=== PATIENT | female | born 1970 | race Caucasian/White ===

== ENCOUNTER 2022-11-26 07:27 | Outpatient (OUT) | payer OTHER, SELFPAY ==
[2022-11-26 08:12] LABS: Estimated Average Glucose 114 mg/dL; Glycohemoglobin A1C 5.6 % (4.5-6.2)
[2022-11-26 08:21] LABS: Chol HDL Ratio 3.1; Cholesterol 160 mg/dL (<=200); HDL Cholesterol 51 mg/dL (40-60); Thyroid Stimulating Hormone 1.707 uIU/mL (0.358-3.740); Triglycerides 209 mg/dL (<=150); VLDL CHOLESTEROL 41.8 mg/dL
[2022-11-26 08:35] LABS: Free T4 1.04 ng/dL (0.76-1.46)
[2022-11-26 09:39] LABS: Basophils Percent Auto 0.1 % (0.2-2.0); Eosinophils Absolute Auto 0.1 10^3/uL (0.0-0.7); Eosinophils Percent Auto 1.3 % (0.9-7.0); Hematocrit 40.8 % (36.0-48.0); Hemoglobin 13.7 g/dL (12.0-16.0); Immature Granulocytes Abs Auto 0.02 10^3/uL (0.00-0.03); Immature Granulocytes Pct Auto 0.3 % (0.0-0.5); Lymphocytes Absolute Auto 2.1 10^3/uL (1.2-3.8); Lymphocytes Percent Auto 29.7 % (20.5-60.0); Mean Corpuscular HGB Conc 33.6 g/dL (29.9-35.2); Mean Corpuscular Hemoglobin 30.3 pg (26.7-34.0); Mean Corpuscular Volume 90.3 fL (81.0-99.0); Monocytes Absolute Auto 0.5 10^3/uL (0.3-0.8); Monocytes Percent Auto 6.9 % (1.7-12.0); Neutrophils Absolute Auto 4.4 10^3/uL (1.4-6.5); Neutrophils Percent Auto 61.7 % (43.0-75.0); Platelet Count 253 10^3/uL (150-450); Red Blood Count 4.52 10^6/uL (4.20-5.40); Red Cell Distribution Width 13.1 % (11.0-15.0); White Blood Count 7.1 10^3/uL (4.0-11.0)
== END 2022-11-26 07:28 ==
PROVIDERS: PCP Family Medicine; Visit Provider Family Medicine
DX: Z00.00 Encounter for general adult medical examination without abnormal findings (principal); R53.83 Other fatigue
CPT/HCPCS: 36415; 80061; 83036; 84439; 84443; 85025

== ENCOUNTER 2023-01-20 08:00 | Outpatient (OUT) | payer OTHER, SELFPAY ==
--- NOTE | 2023-01-20 08:07 | MM_ITS ---
Patient: CARLY STEPHENS Exam Date: 01/20/2023 : 1970 Gender:F Ordering : DR Alexis Sal . Admission #: [id number] Family : Order #: [id number] CLICK HERE TO VIEW EXAM RADIOLOGY REPORT PROCEDURE: MM TOMOSYNTHESIS SCREENING BI COMPARISON: MG MAMM SCREEN 3D EUGENIE CAD, 01/18/2022. MG MAMM SCREEN 3D EUGENIE CAD, 01/17/2021. MG MAMM SCREEN EUGENIE W CAD, 01/17/2020. MG MAMM SCREEN EUGENIE W CAD, 01/15/2019. INDICATIONS: Screening mammogram Z12.31 Calculator Name NCI Breast Cancer Risk Assessment Tool 5 Year Breast Cancer Risk 0.80% Lifetime Breast Cancer Risk 6.90% Personal Breast Cancer No Personal Ovarian Cancer No Treatments None Family Cancers Aunt-maternal with breast cancer at age ~60. LOCATION: [facility] BREAST COMPOSITION: Heterogeneously dense,which may obscure small masses. FINDINGS: DIAGNOSTIC CATEGORY 2--BENIGN FINDING: RIGHT BREAST: No significant suspicious finding. Scattered benign-appearing nodules are present. Scattered benign-appearing calcifications are present. No significant change has occurred. LEFT BREAST: No significant suspicious finding. Scattered benign-appearing nodules are present. Scattered benign-appearing calcifications are present. No significant change has occurred. RECOMMENDATIONS: ROUTINE MAMMOGRAM AND CLINICAL EVALUATION IN 12 MONTHS. PLEASE NOTE: A NORMAL MAMMOGRAM DOES NOT EXCLUDE THE POSSIBILITY OF BREAST CANCER. A CLINICALLY SUSPICIOUS PALPABLE LUMP SHOULD BE BIOPSIED. Dictated by: Aleks Moy M.D. on 01/20/2023 at 14:21 Approved by: Aleks Moy M.D. on 01/20/2023 at 14:32
== END 2023-01-20 08:01 | disposition home or self-care (01) ==
LOC: MAMMO 08:00
PROVIDERS: PCP Family Medicine; Visit Provider Family Medicine
DX: Z12.31 Encounter for screening mammogram for malignant neoplasm of breast (principal); Z80.3 Family history of malignant neoplasm of breast
CPT/HCPCS: 77063; 77067

== ENCOUNTER 2023-10-23 10:08 | Outpatient (OUT) | payer OTHER, SELFPAY ==
[2023-10-23 10:41] LABS: Basophils Percent Auto 0.2 % (0.2-2.0); Eosinophils Absolute Auto 0.1 10^3/uL (0.0-0.7); Hematocrit 40.8 % (36.0-48.0); Hemoglobin 13.4 g/dL (12.0-16.0); Immature Granulocytes Abs Auto 0.03 10^3/uL (0.00-0.03); Immature Granulocytes Pct Auto 0.3 % (0.0-0.5); Lymphocytes Absolute Auto 2.4 10^3/uL (1.2-3.8); Lymphocytes Percent Auto 24.3 % (20.5-60.0); Mean Corpuscular HGB Conc 32.8 g/dL (29.9-35.2); Mean Corpuscular Hemoglobin 29.2 pg (26.7-34.0); Mean Corpuscular Volume 88.9 fL (81.0-99.0); Mean Platelet Volume 10.8 fL (9.5-13.5); Monocytes Absolute Auto 0.5 10^3/uL (0.3-0.8); Neutrophils Absolute Auto 6.9 10^3/uL (1.4-6.5); Neutrophils Percent Auto 69.2 % (43.0-75.0); Platelet Count 222 10^3/uL (150-450); Red Blood Count 4.59 10^6/uL (4.20-5.40); Red Cell Distribution Width 12.6 % (11.0-15.0); White Blood Count 9.9 10^3/uL (4.0-11.0)
[2023-10-23 11:12] LABS: Bilirubin Urine NEGATIVE (NEGATIVE); Blood Urine NEGATIVE (NEGATIVE); Clarity Urine CLEAR (CLEAR); Color Urine LT. YELLOW (YELLOW); Glucose Urine UA NEGATIVE (NEGATIVE); Ketones Urine NEGATIVE (NEGATIVE); Leukocyte Esterase Urine TRACE (NEGATIVE); Nitrite Urine NEGATIVE (NEGATIVE); Protein Urine NEGATIVE (NEG/TRACE); Urobilinogen Urine 0.2 EU/dL (0.2-1.0)
[2023-10-23 11:13] LABS: Bacteria Urine NONE SEEN #/HPF (NONE SEEN); Mucus Urine NONE SEEN (NONE SEEN); RBC Urine NONE SEEN #/HPF (0-2); WBC Urine 0-2 #/HPF (NONE SEEN)
[2023-10-23 11:14] LABS: Cast Seen? NONE SEEN #/LPF (NONE SEEN); Crystals Seen? None Seen #/HPF (None Seen); Squamous Epithelial Cell Urine NONE SEEN #/LPF (NONE/RARE)
[2023-10-23 11:16] LABS: Amphetamine Screen Urine NEGATIVE (NEGATIVE); Barbiturates Screen Urine NEGATIVE (NEGATIVE); Benzodiazepines Screen Urine NEGATIVE (NEGATIVE); Buprenorphine Screen Urine NEGATIVE (NEGATIVE); Cannabinoid Screen Urine NEGATIVE (NEGATIVE); Cocaine Screen Urine NEGATIVE (NEGATIVE); Methadone Screen Urine NEGATIVE (NEGATIVE); Methamphetamines Screen Urine NEGATIVE (NEGATIVE); Opiate Screen Urine NEGATIVE (NEGATIVE); Oxycodone Screen Urine NEGATIVE (NEGATIVE); Phencyclidine Screen Urine NEGATIVE (NEGATIVE); Tricyclic Antidepressant Urine NEGATIVE (NEGATIVE)
[2023-10-23 11:24] LABS: Estimated Average Glucose 111 mg/dL; Glycohemoglobin A1C 5.5 % (4.5-6.2)
[2023-10-23 11:37] LABS: Alanine Aminotransferase 31 U/L (14-59); Albumin Globulin Ratio 0.9; Albumin Level 3.5 g/dL (3.4-5.0); Alkaline Phosphatase 67 U/L (46-116); Anion Gap 10.6; Aspartate Amino Transferase 20 U/L (15-37); BUN Creatinine Ratio 21.6; Bilirubin Total 0.5 mg/dL (0.2-1.0); Calcium 9.1 mg/dL (8.5-10.1); Carbon Dioxide 30.1 mmol/L (21.0-32.0); Chloride 103 mmol/L (98-107); Estimated GFR (African America >60 (>=60); Estimated GFR (Non-African Ame >60 (>=60); Free T3 2.82 pg/mL (2.18-3.98); Globulin 3.7 g/dL; Glucose 92 mg/dL (74-106); Potassium 3.7 mmol/L (3.5-5.1); Sodium 140 mmol/L (136-145); Thyroid Stimulating Hormone 1.325 uIU/mL (0.358-3.740); Total Protein 7.2 g/dL (6.4-8.2)
[2023-10-24 06:10] LABS: Rubella Antibodies, IgG 5.25 index (Immune >0.99); Varicella-Zoster V Ab, IgG 3265 index (Immune >165)
== END 2023-10-23 10:09 | disposition home or self-care (01) ==
LOC: LAB 10:09
PROVIDERS: PCP Family Medicine; Visit Provider Family Medicine
DX: Z00.00 Encounter for general adult medical examination without abnormal findings (principal); M17.11 Unilateral primary osteoarthritis, right knee; N39.0 Urinary tract infection, site not specified
CPT/HCPCS: 36415; 80053; 80307; 81001; 83036; 84436; 84443; 84481; 85025; 86762; 86787; 87086

== ENCOUNTER 2023-12-12 12:41 | Outpatient (RCR) | payer OTHER, SELFPAY | END 2024-01-10 15:41 | disposition home or self-care (01) | LOC: PT 12:41 | PROVIDERS: PCP Family Medicine; Visit Provider Physician Assistant | DX: S83.241D Other tear of medial meniscus, current injury, right knee, subsequent encounter (principal); Z98.890 Other specified postprocedural states | CPT/HCPCS: 97110; 97161 ==

== ENCOUNTER 2024-01-28 10:16 | Outpatient (OUT) | payer OTHER, SELFPAY ==
--- NOTE | 2024-01-28 | MM_ITS ---
Patient Name: CARLY STEPHENS MR#: [id number] : 1970 Exam Date: 01/28/2024 Ordering Doctor: DR CRISTIAN MUÑOZ . RADIOLOGY REPORT PROCEDURE: MM TOMOSYNTHESIS SCREENING BI COMPARISON: MM TOMOSYNTHESIS SCREENING BI, 01/20/2023. MG MAMM SCREEN 3D EUGENIE CAD, 01/18/2022. MG MAMM SCREEN 3D EUGENIE CAD, 01/17/2021. MG MAMM SCREEN EUGENIE W CAD, 01/17/2020. INDICATIONS: screening for malignant neoplasm Calculator Name [facility] Breast Cancer Risk Assessment Tool 5 Year Breast Cancer Risk 0.90% Lifetime Breast Cancer Risk 6.80% Personal Breast Cancer No Personal Ovarian Cancer No Treatments None Family Cancers Aunt-maternal with breast cancer at age ~60. LOCATION: [facility] [place] BREAST COMPOSITION: The breasts are heterogeneously dense,which may obscure small masses. FINDINGS: DIAGNOSTIC CATEGORY 2--BENIGN FINDING: RIGHT BREAST: No significant suspicious finding. Scattered benign-appearing nodules are present. Scattered benign-appearing calcifications are present. No significant change has occurred. LEFT BREAST: No significant suspicious finding. Scattered benign-appearing nodules are present. Scattered benign-appearing calcifications are present. No significant change has occurred. RECOMMENDATIONS: ROUTINE MAMMOGRAM AND CLINICAL EVALUATION IN 12 MONTHS. PLEASE NOTE: A NORMAL MAMMOGRAM DOES NOT EXCLUDE THE POSSIBILITY OF BREAST CANCER. A CLINICALLY SUSPICIOUS PALPABLE LUMP SHOULD BE BIOPSIED. Dictated by: Aleks Moy M.D. on 01/29/2024 at 15:52 Approved by: Aleks Moy M.D. on 01/29/2024 at 15:55
== END 2024-01-28 10:17 | disposition home or self-care (01) ==
LOC: MAMMO 10:16
PROVIDERS: PCP Family Medicine; Visit Provider Family Medicine
DX: Z12.31 Encounter for screening mammogram for malignant neoplasm of breast (principal); Z80.3 Family history of malignant neoplasm of breast
CPT/HCPCS: 77063; 77067

== ENCOUNTER 2024-06-23 19:59 | Outpatient (OUT) | payer OTHER, SELFPAY ==
--- OUTSIDE RECORDS SUMMARY | 2024-06-23 20:04 | XMS_ITS | CCD ---
Author Organization [facility] Care Team Providers Care Door To Door Lead Generation Name Role Phone HERSONSARAH Josue Moe Referring Unavailable CRISTIAN MUÑOZ Primary Care Unavailable Cristian Muñoz Primary Care Provider Mila Akers Unavailable Bernarda Mcneal Unavailable WANDA ., DR FOSTER Admitting Unavailable HOY ., DR FOSTER Attending Unavailable HOY ., DR FOSTER Primary Care Unavailable HOY ., DR FOSTER Consulting Unavailable ZIEBER, DR BETH Walters Consulting Unavailable HOY ., DR FOSTER Admitting Unavailable HOY ., DR FOSTER Attending Unavailable HOY ., DR FOSTER Primary Care Unavailable HOY ., DR FOSTER Consulting Unavailable FARRAH GAINES Consulting Unavailable HOY ., DR FOSTER Admitting Unavailable HOY ., DR FOSTER Attending Unavailable HOY ., DR FOSTER Primary Care Unavailable HOY ., DR FOSTER Consulting Unavailable MISC, DR GRIGGS Admitting Unavailable MISC, DR GRIGGS Attending Unavailable HOY ., DR FOSTER Primary Care Unavailable CAMILA, DR JADA Matamoros Consulting Unavailable MISC, DR GRIGGS Consulting Unavailable HOY ., DR FOSTER Admitting Unavailable HOY ., DR FOSTER Attending Unavailable HOY ., DR FOSTER Primary Care Unavailable HOY ., DR FOSTER Consulting Unavailable WEST, DR JADA Matamoros Consulting Unavailable JOSE, DR MARISELA Brown Admitting Unavailable JOSE, DR MARISELA Brown Attending Unavailable HOY ., DR FOSTER Primary Care Unavailable HOY ., DR FOSTER Admitting Unavailable HOY ., DR FOSTER Attending Unavailable HOY ., DR FOSTER Primary Care Unavailable HOY ., DR FOSTER Consulting Unavailable ZIEBER, DR BETH Walters Consulting Unavailable HOY ., DR FOSTER Admitting Unavailable HOY ., DR FOSTER Attending Unavailable HOY ., DR FOSTER Primary Care Unavailable HOY ., DR FOSTER Consulting Unavailable Baeza, Mitchel Unavailable Megan Coats Unavailable MD Cristian Muñoz Primary Care Provider MD Sandra Jules Attending Provider DO Sam Baezaten Saima Attending Provider Cristian Muñoz MD Primary Care Provider [phone] Cristian Muñoz MD Primary Care Provider MD Cristian Muñoz M Primary Care Provider DO Mitchel Baeza Attending Provider ABILIO Florian Attending Provider [phone] MARISELA GARCIA Attending Unavailable MARISELA GARCIA Attending Unavailable MARISELA GARCIA Attending Unavailable KETAN FRANCIS Referring Unavailable NO FAMILY, PHYSICIAN Primary Care Provider Unava ilable DO Mookie Ospina Attending Provider [phone] Hoy, Cristian M Primary Care Unavailable Mookie Ospina Admitting Unavailable Mookie Ospina Attending Unavailable Hoy, Cristian M Primary Care Unavailable Baeza, Mitchel M Admitting Unavailable Baeza, Mitchel M Attending Unavailable Hoy, Cristian M Primary Care Unavailable Mookie Ospina Admitting Unavailable Mookie Ospina Attending Unavailable NO FAMILY, PHYSICIAN Primary Care Unavailable Mookie Ospina Admitting Unavailable Mookie Ospina Attending Unavailable Darlin Florian Admitting Unavailable Darlin Florian Attending Unavailable Baeza, Mitchel M Admitting Unavailable Baeza, Mitchel M Attending Unavailable Hoy, Cristian M Primary Care Unavailable Sandra Jules Admitting Unavailable Sandra Jules Attending Unavailable Wanda, Cristian M Primary Care Unavailable MD Cristian Muñoz Primary Care Provider [phone] DARRON BOND Attending Unavailable HOY, CRISTIAN M Referring Unavailable HOY, CRISTIAN M Primary Care Unavailable NO FAMILY, PHYSICIAN Primary Care Provider Unava ilable MD Cristian Muñoz Primary Care Provider DO Mookie Ospina Attending Provider [phone] HOY, CRISTIAN M Referring Unavailable HOY, CRISTIAN M Primary Care Unavailable CONCEPCION RUFFIN Attending Unavailable CRISTIAN MUÑOZ Referring Unavailable CRISTIAN MUÑOZ Primary Care Unavailable CONCEPCION RUFFIN Referring Unavailable CRISTIAN MUÑOZ Primary Care Unavailable CONCEPCION RUFFIN Referring Unavailable CIRSTIAN MUÑOZ Primary Care Unavailable Cristian Muñoz MD Primary Care Provider [phone] Cristian Muñoz Primary Care Physician Clint Boogie Admitting Unavailable Clint Boogie Attending Unavailable Clint Boogie Referring Unavailable FIONA WINN Attending Unavailable EDNA XIONG Attending Unavailable CHUYITA, CLINT A Referring Unavailable CLINT BOOGIE A Attending Unavailable CLINT BOOGIE A Referring Unavailable CLINT BOOGIE A Attending Unavailable CLINT BOOGIE A Referring Unavailable Clint Boogie A Admitting Unavailable Clint Boogie A Attending Unavailable Clint Boogie A Referring Unavailable Allergies Allergy Classification Reported Allergen(s) Allergy Type Date of Onset Reaction(s) Facility (1 source) No Known Medication Allergies; Translations: [No Known Medication Allergies] Propensity to adverse reactions (disorder) [facility] Repository Medications Current Medications Medication Drug Class(es) Dates Sig (Normalized) Sig (Original) 0.5 ML semaglutide 0.5 MG/ML Auto-Injector [Wegovy] (3 sources) Start: 01-02-2023 inject 0.25 mg by subcutaneous injection every week Wegovy 0.25 MG/0.5ML 0.25 mg Subcutaneous Once weekly for 30 days Dec, Active 0.5 ML tirzepatide 20 MG/ML Auto-Injector [Zepbound] (1 source) Start: 06-17-2024 Zepbound 10 mg/0.5 mL subcutaneous solution SubCutaneous, qWeek, , Refills(s) 0 Start Date: 06/17/24 Status: Ordered azithromycin 250 mg oral tablet (1 source) Macrolide Antimicrobial Start: 07-19-2019 azithromycin (ZITHROMAX) 250 MG tablet Indications: Acute frontal sinusitis, recurrence not specified Take 2 tabs (500 mg) on Day 1, and take 1 tab (250 mg) on days 2 through 5. 1 packet 0 07/19/2019 Active 24 hr buPROPion hydrochloride 150 mg extended release oral tablet (20 sources) Aminoketone Start: 07-31-2023 End: 11-24-2023 take 1 mg by mouth once daily Bupropion Hcl Discontinued MG PO Daily July 31, 2023 9:23am November 24, 2023 10:42am Start: 07-30-2023 End: 07-31-2023 Bupropion Hcl Discontinued M G PO July 30, 2023 1:00am July 31, 2023 9:25am Start: 03-01-2020 take 150 mg by mouth once daily Bupropion Hcl Active 150 MG PO Daily November 24, 2023 10:38am Start: 02-18-2020 buPROPion XL ( Wellbutrin XL) 150 MG 24 hr tablet 09/04/2022 Active Wellbutrin 150mg qd Active Wellbutrin Activ e calcium polycarbophil 625 mg oral tablet (1 source) Start: 06-17-2024 take 1 tablet by mouth once daily Fiber Tabs 625 mg, Oral, Daily, Refills(s) 0, Prophylaxis Start Date: 06/17/24 Status: Ordered Carboxymethylcellulose (2 sources) Carboxymethylcel lulose Sodium (EQ RESTORE PLUS LUBRICANT EYE OP) Administer into affected eye(s) Active cefdinir (1 source) Cephalosporin Antibacterial Start: 06-17-2024 cefdinir Oral, Refills(s) 0, Infection or prophylaxis for antibiotics Start Date: 06/17/24 Status: Ordered cetirizine hydrochloride 10 mg oral tablet (20 sources) Histamine-1 Receptor Antagonist Start: 07-12-2019 End: 07-31-2023 take 1 tablet by mouth once daily cetirizine 10 mg Tab 10 mg = 1 tab(s), Oral, Daily, Refills(s) 0 Start Date: 03/01/20 Status: Ordered Cetirizine HCl A ctive cholecalciferol 0.05 mg oral capsule (20 sources) Vitamin D Start: 07-30-2023 take 50 ug by mouth once daily in the morning Cholecalciferol (Vitamin D3) Active 50 MCG PO Every morning July 30, 2023 1:00am cholecalciferol (Vitamin D-[address]) 25 MCG (1000 UT) tablet Take 2,000 Units by mouth in the morning. Active take 2 tablets by mouth in the m orning cholecalciferol (VITAMIN D3) 1,000 units tablet Take 2 tablets (2,000 Units total) by mouth in the morning. Active take 1 capsule by [facility] every twenty-four hours Vitamin D3 50 MCG (1999) 1 capsule Or ally Once a day Active Coenzyme Q10 (CO Q 10 PO) (2 sources) Coenzyme Q10 (CO Q 10 PO) Take by mouth Active CoQ10 100 MG (10 sources) CoQ10 100 MG as directed Orally Active diclofenac sodium 75 mg delayed release oral tablet (6 sources) Nonsteroidal Anti-inflammatory Drug End: 4 take 1 tablet by mouth once daily as needed diclofenac (VOLTAREN) 75 mg EC tablet Take 1 tablet (75 mg total) by mouth daily as needed. Active Estradiol (2 sources) Estrogen Estradiol Active eye promise restore (10 sources) Start: take 1 tablet by mouth once daily in the morning eye promise restore Active 1 TAB PO Every morning December 01, 2023 12:00am Start: 12-01-2023 take 1 tablet by mouth once da jerardo eye promise restore Active 1 TAB PO Daily December 01, 2023 12:00am fenofibrate 67 mg oral capsule (8 sources) Peroxisome Proliferator Receptor alpha Agonist Start: 02-20-2024 Fenofibrate Micronized Active 67 MG PO March 08, 2024 12:00am FeroSul 325 mg oral tablet (1 source) Start: 04-13-2021 take 1 tablet by mouth once daily FeroSul 325 mg oral tablet 325 mg = 1 tab(s), Oral, Daily, Refills(s) 0 Start Date: 04/13/21 Status: Ordered ferrous sulfate 325 mg oral tablet (20 sources) Start: 11-03-2020 take 1 tablet by mouth in the morning FeroSuL 325 mg (65 mg iron) tablet Take 1 tablet (325 mg total) by mouth in the morning. 11/03/2020 Active take 1 tablet by mouth in the mo [facility] Ferrous Sulfate (IRON PO) Take 1 tablet by mouth in the morning. Active Fiber (2 sources) FIBER PO Take by mouth Active fluticasone propionate 0.05 mg/actuat metered dose nasal spray (1 source) Corticosteroid take 1 spray(s) nasal route in the morning fluticasone propionate (FLONASE) 50 mcg/actuation nasal spray Administer 1 spray into each nostril in the morning. Active gabapentin 300 mg oral capsule (7 sources) Anti-epileptic Agent Start: 01-22-20 take 1 capsule by mouth once daily gabapentin (NEURONTIN) 300 mg capsule Indications: Menopause Take 1 capsule (300 mg total) by mouth nightly. 30 capsule 11 01/21/2023 Active gemfibrozil 600 mg oral tablet (3 sources) Peroxisome Proliferator Receptor alpha Agonist Start: 06-28-19 gemfibrozil (LOPID) 600 MG tablet Gemfibrozil Acti ve Iron (2 sources) Iron Active Magnesium glycinate (13 sources) Start: 11-24-2023 take 2 capsules by mouth once daily in the evening magnesium glycinate Active 2 CAP PO Every evening November 24, 2023 12:00am Start: 11-24-2023 take 2 capsules by m outh once daily magnesium glycinate Active 2 CAP PO Daily November 24, 2023 12:00am Multiple Vitamin (multivitamin) tablet (2 sources) take 1 tablet by vida th once daily Multiple Vitamin (multivitamin) tablet Take 1 tablet by mouth Daily Active Multiple Vitamins-Iron (MULTI-VITAMIN/IRON PO) (1 source) Multiple Vitamin s-Iron (MULTI-VITAMIN/IRON PO) Take by mouth 0 Active hfkxxokk-uqhi-GZ-calcium &mi ns (THERAGRAN-M) 9 mg iron-400 mcg tablet (3 sources) qorizzst-askr-YM -calcium &mins (THERAGRAN-M) 9 mg iron-400 mcg tablet Take 1 tablet by mouth in the morning. Active nzpehcqe-vosq-JT -calcium &mins (THERAGRAN-M) 9 mg iron-400 mcg tablet Take 1 tablet by mouth in the morning. 0 Active Multivitamin preparation (20 sources) Start: 07-30-2023 take 1 tablet by mouth once daily in the morning Multivitamin Active 1 TAB PO Every morning July 30, 2023 1:00am Start: 07-30-2023 take 1 tablet by vida th once daily Multivitamin Active 1 TAB PO Daily July 30, 2023 1:00am take 1 tablet by vida th once daily Multivitamin - 1 tablet Orally Once a day Active Multivitamin Act gonzález pantoprazole 40 mg delayed release oral tablet (20 sources) Proton Pump Inhibitor Start: 05-31-2020 take 1 tablet by mouth once daily Protonix 40 mg Tab-DR 40 mg = 1 tab(s), Oral, Daily, Refills(s) 0, Indigestion Start Date: 06/23/20 Status: Ordered Protonix Active PARoxetine hydrochloride 20 mg oral tablet (1 source) Serotonin Reuptake Inhibitor Start: 07-19-2019 take 1 tablet by mouth once daily in the morning PARoxetine (PAXIL) 20 MG tablet Indications: Menopausal symptom Take 1 tablet by mouth every morning 90 tablet 4 07/19/2019 Active phenazopyridine hydrochloride 100 mg oral tablet (3 sources) Start: 06-17-2024 Pyridium 100 mg Tab Refills(s) 0, Urinary discomfort Start Date: 06/17/24 Status: Ordered Start: 03-22-2024 End: 04-15-2024 Pyridium 200 MG tablet every 8 (eight) hours 03/22/2024 04/15/2024 Discontinued (Therapy completed) Progesterone (2 sources) Progesterone Progesterone Act gonzález QUEtiapine 50 mg oral tablet (5 sources) Atypical Antipsychotic Start: 12-31-2022 QUEtiapine (SEROquel) 50 mg tablet rosuvastatin calcium 20 mg oral tablet (20 sources) HMG-CoA Reductase Inhibitor Start: 09-19-2022 End: 06-18-2023 rosuvastatin (Crestor) 20 MG tablet 09/19/2022 Active Crestor Active Tirzepatide (Weight Loss) (3 sources) Start: 03-12-2024 inject 10 mg by subcutaneous injection every week Tirzepatide (Weight Loss) Active 10 MG SUBCUT every week 2 March 12, 2024 10:47am Start: 02-26-2024 End: 03-12-2024 inject 10 mg by subcutaneous injection every week Tirzepatide (Weight Loss) Discontinued 10 MG SUBCUT every week 2 February 26, 2024 4:35pm March 12, 2024 10:48am Start: 02-26-2024 inject 10 mg by subc utaneous injection every week Tirzepatide (Weight Loss) Active 10 MG SUBCUT every week 2 February 26, 2024 4:35pm tirzepatide, weight loss, (ZEPBOUND) 2.5 mg/0.5 mL pen injector (1 source) tirzepatide, david ght loss, (ZEPBOUND) 2.5 mg/0.5 mL pen injector Inject 2.5 mg under the skin every 7 days. Active Vitamin D (1 source) Start: 06-17-2024 Vitamin D Oral, Daily, Refills(s) 0, Prophylaxis Start Date: 06/17/24 Status: Ordered VITAMIN D PO (2 sources) VITAMIN D PO Mitch e by mouth Active Zepbound 10 MG/0.5ML solution auto-injector (5 sources) Start: 04-02-2024 inject 0.5 mL by subcutaneous injection every week Zepbound 10 MG/0.5ML solution auto-injector INJECT 0.5 ML SUBCUTANEOUSLY EVERY WEEK FOR WEIGHT LOSS 04/02/2024 Active Completed/Discontinued Medications Medication Drug Class(es) Dates Sig (Normalized) Sig (Original) acetaminophen 325 mg oral tablet (14 sources) Start: 4 End: 5 acetaminophen (Tylenol) 325 MG tablet 12/04/2023 06/17/2024 Discontinued (Therapy completed) acetaminophen 325 mg / HYDROcodone bitartrate 5 mg oral tablet (9 sources) Opioid Agonist Start: 4 End: 4 take 1 tablet by mouth every six hours Hydrocodone-Aceta minophen Discontinued 1 TAB PO Q6H 12 December 04, 2023 March 08, 2024 7:37am DO NOT RECONCILE UNTIL DOS 12/05/23 TO BE USED POST OP aspirin 81 mg chewable tablet (9 sources) Platelet Aggregation Inhibitor, Nonsteroidal Anti-inflammatory Drug Start: 4 End: 4 take 81 mg by mouth twice daily Aspirin Discontinued 81 MG PO Twice daily December 04, 2023 12:00am January 19, 2024 10:54am DO NOT RECONCILE UNTIL DOS 12/05/23 TO BE USED POST OP 12 hr buPROPion hydrochloride 90 mg / naltrexone hydrochloride 8 mg extended release oral tablet (5 sources) Opioid Antagonist, Aminoketone Start: 3 Contrave 8-90 MG Week 1 take 1 tablet in the a.m., week 2 take 1 tablet in the a.m. and 1 tablet in the p.m., week 3 take 2 tablets in the a.m. and 1 tablet in the p.m., week 4 and beyond take 2 tablets in the a.m. and p.m. Orally As directed for 30 days Jan, Not-Taking cephalexin 500 mg oral tablet (16 sources) Cephalosporin Antibacterial Start: 4 End: take 1000 mg by mouth every twelve hours Cephalexin Discontinued 1000 MG PO Every 12 hours July 31, 2023 1:00am September 29, 2023 8:20am dexamethasone 6 mg oral tablet (2 sources) Corticosteroid Start: 4 End: 4 dexAMETHasone (Decadron) 6 MG tablet 06/20/2023 04/15/2024 Discontinued (Therapy completed) hydroCHLOROthiazide 12.5 mg / losartan potassium 50 mg oral tablet (20 sources) Thiazide Diuretic, Angiotensin 2 Receptor Susan Start: 4 End: 5 losartan-hydroCHL OROthiazide (Hyzaar) 50-12.5 MG tablet 06/12/2023 06/17/2024 Discontinued (Therapy completed) Start: 08-02-2021 take 1 tablet by vida th once daily losartan-hydroCHLOROthiazide (HYZAAR) 50-12.5 mg per tablet Take 1 tablet by mouth daily. 90 tablet 3 08/02/2021 Active indomethacin 50 mg oral capsule (13 sources) Nonsteroidal Anti-inflammatory Drug Start: 11-24-2023 End: 01-19-2024 take 50 mg by mouth three times daily Indomethacin Discontinued 50 MG PO Three times daily November 24, 2023 12:00am January 19, 2024 10:55am Ketorolac (12 sources) Nonsteroidal Anti-inflammatory Drug, Cyclooxygenase Inhibitor Start: 05-31-2018 Toradol per 15 mg May, 60 mg magnesium oxide 400 mg oral tablet (8 sources) End: 06-17-2024 magnesium oxide (Mag-Ox) 400 MG tablet Take 200 mg by mouth in the morning. 06/17/2024 Discontinued (Therapy completed) take 0.5 tablet by mouth in the morning magnesium oxide (MAGOX) 400 mg tablet Take 0.5 tablets (200 mg total) by mouth in the morning. Active take 1 tablet by mouth in the mo rning magnesium oxide (MAGOX) 400 mg tablet Take 1 tablet (400 mg total) by mouth in the morning. 0 Active meloxicam 15 mg oral tablet (20 sources) Nonsteroidal Anti-inflammatory Drug Start: 06-05-2023 End: 04-15-2024 take 15 mg by mouth once daily Meloxicam Discontinued 15 MG PO daily January 19, 2024 10:55am March 12, 2024 10:30am DO NOT RECONCILE UNTIL DOS 12/05/23 TO BE USED POST OP take 1 tablet by mouth in the mo rning meloxicam (MOBIC) 7.5 mg tablet Take 1 tablet (7.5 mg total) by mouth in the morning. Active 1 ml methylPREDNISolone acetate 40 mg/ml injection (2 sources) Corticosteroid Start: 07-14-2023 End: 07-14-2023 methylPREDNISolone acetate (DEPO-Medrol) injection 40 mg naproxen 500 mg oral tablet (8 sources) Nonsteroidal Anti-inflammatory Drug Start: 03-08-2024 End: 06-17-2024 take 500 mg by mouth twice daily Naproxen Discontinued 500 MG PO Twice daily March 12, 2024 12:00am March 12, 2024 10:32am nitrofurantoin, macrocrystals 25 mg / nitrofurantoin, monohydrate 75 mg oral capsule (15 sources) Nitrofuran Antibacterial Start: 10-18-2023 End: 11-24-2023 take 1 capsule by mouth every twelve hours at mealtime Nitrofurantoin Monohyd/M-Cryst (Macrobid) 100 mg capsule Discontinued 100 MG PO Every 12 hours 14 October 18, 2023 12:00am November 24, 2023 10:40am must administer with a meal/food 24 hr pramipexole dihydrochloride 2.25 mg extended release oral tablet (20 sources) Nonergot Dopamine Agonist Start: 12-01-2023 End: 01-19-2024 take 1 tablet by mouth once daily in the evening Pramipexole (Mirapex Er) 2.25 mg tablet extended release 24 hr Discontinued 2.25 MG PO Every evening December 01, 2023 12:00am January 19, 2024 10:56am Start: 07-31-2023 take 2 mg by mouth o nce daily in the evening Pramipexole Active 2 MG PO Every evening July 31, 2023 9:24am (MIRAPEX) Start: 03-01-2020 End: 07-31-2023 pramipexole (Mirapex) 1 MG t ablet 12/25/2022 Active Start: 05-28-2019 pramipexole (M IRAPEX) 0.25 MG tablet take 2 tablets by mo uth in the morning pramipexole (MIRAPEX) 1 mg tablet Take 2 tablets (2 mg total) by mouth in the morning. Active Mirapex 2mg qd A ctive Mirapex Active predniSONE 10 mg oral tablet (2 sources) Start: 10-31-2023 End: 04-15-2024 predniSONE (Deltasone) 10 MG tablet 10/31/2023 04/15/2024 Discontinued (Therapy completed) Relizen (8 sources) Relizen 2 tabs q d Not-Taking Relizen 2 tabs q d Active Tirzepatide (Weight Loss) (20 sources) Start: 11-20-2023 End: 11-24-2023 Tirzepatide (Weight Loss) (Z epbound) 5 mg/0.5 mL pen injector Discontinued 5 MG SUBCUT every week 2 November 20, 2023 7:27am November 24, 2023 11:04am Start: 11-20-2023 End: 11-20-2023 Tirzepatide (Weight Loss) (Zepbound) 5 mg/0.5 mL pen injector Discontinued 5 MG SUBCUT every week November 20, 2023 12:00am November 20, 2023 7:28am Start: 09-29-2023 End: 10-27-2023 inject 5 mg by subcutaneous injection every week Tirzepatide (Weight Loss) Discontinued 5 MG SUBCUT every week 2 September 29, 2023 8:35am October 27, 2023 2:26pm Start: 09-29-2023 inject 5 mg by subcu taneous injection every week Tirzepatide (Weight Loss) Active 5 MG SUBCUT every week 2 September 29, 2023 8:35am Tirzepatide (Weight Loss) (20 sources) Start: 10-27-2023 End: 11-20-2023 Tirzepatide (Weight Loss) (Z epbound) 2.5 mg/0.5 mL pen injector Discontinued 2.5 MG SUBCUT every week 2 October 27, 2023 2:24pm November 20, 2023 7:24am Start: 10-27-2023 Tirzepatide (W eight Loss) (Zepbound) 2.5 mg/0.5 mL pen injector Active 2.5 MG SUBCUT every week 2 October 27, 2023 2:24pm Start: 09-22-2023 End: 09-29-2023 Tirzepatide (Weight Loss) (Z epbound) 2.5 mg/0.5 mL pen injector Discontinued 2.5 MG SUBCUT every week 2 September 22, 2023 3:32pm September 29, 2023 8:46am Start: 08-21-2023 End: 09-22-2023 Tirzepatide (Weight Loss) (Z epbound) 2.5 mg/0.5 mL pen injector Discontinued 2.5 MG SUBCUT every week 2 August 21, 2023 2:37pm September 22, 2023 3:32pm Start: 07-31-2023 End: 08-21-2023 Tirzepatide (Weight Loss) (Z epbound) 2.5 mg/0.5 mL pen injector Discontinued 2.5 MG SUBCUT every week 2 July 31, 2023 1:00am August 21, 2023 2:37pm Tirzepatide (Weight Loss) (20 sources) Start: 01-19-2024 End: 02-26-2024 inject 7.5 mg by subcutaneous injection every week Tirzepatide (Weight Loss) Discontinued 7.5 MG SUBCUT every week 2 January 19, 2024 11:14am February 26, 2024 4:36pm Start: 01-19-2024 inject 7.5 mg by sub cutaneous injection every week Tirzepatide (Weight Loss) Active 7.5 MG SUBCUT every week 2 January 19, 2024 11:14am Start: 12-01-2023 End: 01-19-2024 inject 7.5 mg by subcutaneous injection every week Tirzepatide (Weight Loss) Discontinued 7.5 MG SUBCUT every week December 01, 2023 12:00am January 19, 2024 11:14am takes on Mondays Start: 12-01-2023 inject 7.5 mg by sub cutaneous injection every week Tirzepatide (Weight Loss) Active 7.5 MG SUBCUT every week December 01, 2023 12:00am takes on Mondays Start: 11-24-2023 End: 12-01-2023 inject 7.5 mg by subcutaneous injection every week Tirzepatide (Weight Loss) Discontinued 7.5 MG SUBCUT every week 2 November 24, 2023 11:04am December 01, 2023 7:51am Start: 11-24-2023 inject 7.5 mg by sub cutaneous injection every week Tirzepatide (Weight Loss) Active 7.5 MG SUBCUT every week 2 November 24, 2023 11:04am ubidecarenone 75 mg oral cap lakhwinder (19 sources) Start: 07-30-2023 End: 11-24-2023 Coenzyme Q10 (Ultra Coq10) 7 5 mg capsule Discontinued 75 MG PO Daily July 30, 2023 1:00am November 24, 2023 10:39am Start: 11-30-2021 take 1 capsule by mo uth once in the morning coenzyme Q10 100 mg capsule Take 1 capsule (100 mg total) by mouth in the morning. 30 capsule 11 11/30/2021 Active ubiquinol 100 mg oral capsul e (15 sources) Start: 11-24-2023 End: 04-15-2024 Ubiquinol 100 MG capsule Emily ry evening 11/24/2023 04/15/2024 Discontinued (Therapy completed) Problems Active Problems Problem Classification Problem Date Documented Date Episodic/Chronic Abdominal pain (1 source) Epigastric pain 06-22-2020 Episodic Administrative/socia l admission (20 sources) Dietary counseling and surveillance; Translations: [Other specified counseling] Episodic Allergic reactions (1 source) Eczema 03-01-2020 Episodic Anxiety disorders (16 sources) Mixed anxiety and depressive disorder; Translations: [Anxiety disorder, unspecified] 07-30-2023 Chronic Biliary tract disease (1 source) Biliary calculus 06-24-2020 Episodic Disorders of lipid metabolism (20 sources) Dyslipidemia; Translations: [Hyperlipidemia, unspecified] Onset: 06-05-2022 Chronic Esophageal disorders (20 sources) Gastroesophageal reflux disease; Translations: [Gastro-esophageal reflux disease without esophagitis] Chronic Essential hypertension (20 sources) Essential hypertension; Translations: [Essential (primary) hypertension] Onset: 08-02-2021 Chronic Gastroduodenal ulcer (except hemorrhage) (1 source) Gastric ulcer 05-25-2021 Chronic Genitourinary symptoms and ill-defined conditions (1 source) Dysuria; Translations: [Dysuria] Onset: 10-18-2023 Episodic Glaucoma (1 source) Open-angle glaucoma 03-01-2020 Chronic Joint disorders and dislocations; trauma-related (20 sources) Tear of meniscus of knee; Translations: [Unspecified tear of unspecified meniscus, current injury, right knee, initial encounter] 11-25-2023 Episodic Menopausal disorders (3 sources) Menopausal flushing; Translations: [Menopausal and female climacteric states] Onset: 12-21-2020 12-21-2020 Chronic Osteoarthritis (20 sources) Unilateral primary osteoarthritis, right knee; Translations: [Unspecified osteoarthritis, unspecified site] Onset: 06-20-2022 Chronic Other aftercare (1 source) Encounter for other specified aftercare; Translations: [Encounter for other specified aftercare] Onset: 09-08-2023 Episodic Other aftercare (8 sources) Surgical follow-up; Translations: [Encounter for removal of sutures] 12-18-2023 Episodic Other aftercare (15 sources) Encounter for removal of sutures; Translations: [Encounter for removal of sutures] 12-18-2023 Episodic Other aftercare (1 source) Encounter for therapeutic drug level monitoring; Translations: [Encounter for therapeutic drug level monitoring] Onset: 04-29-2024 Episodic Other and unspecified benign neoplasm (1 source) Benign neoplasm of skin of abdomen 03-03-2020 Episodic Other hereditary and degenerative nervous system conditions (1 source) Restless legs 03-01-2020 Chronic Other non-traumatic joint disorders (1 source) Pain in right shoulder; Translations: [Pain in joint, shoulder region] 07-08-2023 Episodic Other non-traumatic joint disorders (1 source) Disorder of shoulder; Translations: [Other specified joint disorders, right shoulder] 07-14-2023 Episodic Other non-traumatic joint disorders (15 sources) Pain in right knee; Translations: [Right knee pain] Onset: 11-25-2023 11-25-2023 Episodic Other nutritional; endocrine; and metabolic disorders (10 sources) Morbid obesity; Translations: [Morbid (severe) obesity due to excess calories] Chronic Other nutritional; endocrine; and metabolic disorders (20 sources) Metabolic syndrome X; Translations: [Metabolic syndrome] 07-30-2023 Chronic Other nutritional; endocrine; and metabolic disorders (5 sources) Morbid (severe) obesity due to excess calories; Translations: [Morbid (severe) obesity due to excess calories] Onset: 05-21-2023 Chronic Other nutritional; endocrine; and metabolic disorders (4 sources) Metabolic syndrome Chronic Other nutritional; endocrine; and metabolic disorders (9 sources) Body mass index 40+ - severely obese; Translations: [Body mass index (BMI) 40.0-44.9, adult] Chronic Other nutritional; endocrine; and metabolic disorders (20 sources) Obese class II; Translations: [Body mass index (BMI) 39.0-39.9, adult] 07-30-2023 Chronic Other nutritional; endocrine; and metabolic disorders (19 sources) Obesity; Translations: [Obesity, unspecified] Chronic Other nutritional; endocrine; and metabolic disorders (20 sources) Obesity, unspecified; Translations: [Obesity, unspecified] Chronic Other nutritional; endocrine; and metabolic disorders (1 source) Body mass index (BMI) 39.0-39.9, adult Chronic Other nutritional; endocrine; and metabolic disorders (4 sources) Body mass index 30+ - obesity; Translations: [Obesity, unspecified] Onset: 08-02-2021 08-02-2021 Chronic Other nutritional; endocrine; and metabolic disorders (7 sources) Obese class I; Translations: [Obesity, unspecified] 01-19-2024 Chronic Other screening for suspected conditions (not mental disorders or infectious disease) (5 sources) Encounter for screening mammogram for malignant neoplasm of breast; Translations: [ENC SCR MAMMO MALIG NEOPLASM BREAST] Onset: 01-18-2022 Episodic Other skin disorders (1 source) Mass of neck 03-01-2020 Episodic Other skin disorders (1 source) Skin tag 03-03-2020 Episodic Other upper respiratory infections (4 sources) Chronic sinusitis, unspecified; Translations: [Chronic maxillary sinusitis] Onset: 04-19-2022 Chronic Residual codes; unclassified (3 sources) Sleep apnea; Translations: [Sleep apnea, unspecified] Onset: 02-09-2021 02-09-2021 Chronic Residual codes; unclassified (9 sources) History of arthroscopy of knee joint; Translations: [Other specified postprocedural states] 12-04-2023 Episodic Residual codes; unclassified (20 sources) Other specified postprocedural states; Translations: [Other postprocedural status] 12-18-2023 Episodic Sprains and strains (16 sources) Unspecified sprain of right lesser toe(s), initial encounter; Translations: [Sprain of medial collateral ligament of left knee, initial encounter] Onset: 12-15-2021 Resolved: 12-15-2021 Episodic Unclassified (3 sources) Patient encounter status 04-13-2021 Unclassified (3 sources) CONTACT W/AND (SUSP) EXPOS COVID-19; Translations: [CONTACT W/AND (SUSP) EXPOS COVID-19] Onset: 01-10-2022 Unclassified (1 source) Encounter for other specified aftercare; Translations: [Encounter for other specified aftercare] Onset: 03-09-2023 Unclassified (1 source) Gynecologic Exam Onset: 2024 Urinary tract infections (9 sources) Acute cystitis with hematuria; Translations: [Acute cystitis] 10-18-2023 Episodic Past or Other Problems Problem Classification Problem Date Documented Da te Episodic/Chronic Deficiency and other anemia (1 source) Anemia, unspecified; Translations: [ANEMIA UNSPECIFIED] Onset: 05-06-2022 Episodic Other connective tissue disease (1 source) Pain in right toe(s) Onset: 12-15-2021 Resolved: 12-15-2021 Episodic Other lower respiratory disease (3 sources) Dyspnea; Translations: [Shortness of breath] Onset: 08-02-2021 Resolved: 2024 08-02-2021 Episodic Other non-traumatic joint disorders (1 source) Pain in right wrist Onset: 08-10-2021 Resolved: 08-10-2021 Episodic Other skin disorders (4 sources) Alopecia (capitis) totalis; Translations: [ALOPECIA CAPITIS TOTALIS] Onset: 04-30-2022 Episodic Residual codes; unclassified (1 source) Family history of malignant neoplasm of breast; Translations: [FAMILY HX MALIG NEOPLASM OF BREAST] Onset: 01-21-2022 Episodic Residual codes; unclassified (3 sources) Menopause present; Translations: [Asymptomatic menopausal state] Onset: 07-16-2021 07-16-2021 Episodic Residual codes; unclassified (3 sources) Family history of cardiac disorder; Translations: [Family history of ischemic heart disease and other diseases of the circulatory system] Onset: 08-02-2021 08-02-2021 Episodic Unclassified (1 source) CONTACT W/AND (SUSP) EXPOS COVID-19; Translations: [CONTACT W/AND (SUSP) EXPOS COVID-19] Onset: 01-07-2022 Results Test Name Value Interpretation Reference Range Facility CT Lower Extremity w/o Contr ast [place] 06-21-2024 CT Lower Extremity w/o Contrast Right Exam Date/Time: 06/17/2024 13:52 EST Reason for Exam: RIGHT KNEE OA Report Impression: Right knee osteoarthritis. CT right lower extremity without intravenous contrast medium. History: Right knee osteoarthritis.. Technical factors: CT imaging of the right lower extremity was obtained and formatted as 2 mm contiguous axial images through the right hip, and 1 mm contiguous axial images through the right knee. Sagittal and coronal reconstruction of the right knee was obtained during postprocessing. Comparison: None. Findings: Right hip shows no fracture, dislocation, bone lesion. Right hip joint maintained. Right knee shows narrowing of the medial, and lateral compartments. No fracture, dislocation, bone lesion, effusion. All CT scans at this facility use dose modulation, iterative reconstruction, and/or weight based dosing when appropriate to reduce radiation dose to as low as reasonably achievable. Ordering Provider: Clint Boogie FINAL REPORT Dictated: 06/21/2024 2:19 pm Zeyad Reza MD Signed (Electronic Signature): 06/21/2024 2:19 pm Signed by: Zeyad Reza MD Transcribed by: GLORIA Technologist: INDRA [facility] C Urineon 06-19-2024 Bacteria identified Cx Nom (U) Microbiology PROCEDURE: Urine Culture [R1] SOURCE: U CleanCatch BODY SITE: COLLECTED DATE/TIME: 06/17/2024 13:00 EST RECEIVED DATE/TIME: 06/17/2024 16:59 EST START DATE/TIME: 06/17/2024 16:59 EST FREE TEXT SOURCE: Clint Boogie DO, DO, Jason A FINAL REPORTS Final Report [] Verified Date/Time: 06/19/2024 07:51 EST 5,000 cfu/ml Mixed skin contaminants Performing Locations R1: This test was performed at: [facility], [address] [place] [address], [id number] , , [facility] Comment on above: Performed By: #### 2 [id number] #### [facility] [address] [place] [address] XR Chest 2 Viewson XR Chest 2 Views Exam Date/Time: 06/17/2024 13:52 EST Reason for Exam: P.A.T. Report IMPRESSION: NO EVIDENCE OF ACTIVE CARDIOPULMONARY DISEASE. EXAM: XR Chest 2 Views DATE: 06/17/2024 1:45 PM CLINICAL HISTORY: P.A.T.. COMPARISON: None available. TECHNIQUE: Upright PA and lateral radiographs of the chest were obtained. FINDINGS: There is no significant pulmonary infiltrate, cardiomegaly, pleural effusion, vascular congestion, pneumothorax, or displaced fractures identified. Ordering Provider: Jr La FINAL REPORT Dictated: 06/19/2024 4:10 pm Lee Hernandez MD Signed (Electronic Signature): 06/19/2024 4:10 pm Signed by: Lee Hernandez MD Transcribed by: GLORIA Technologist: MIKE, Technical Comments Radiation Dose: Ka,r in mGy = na DAP = na Normal [facility] ABO/Rh RetypeOrdered By: Mallika Brooks on 06-17-2024 ABO/Rh Retype Interp Positive Invalid Interpretation Code [facility] [place] BB Subsection Comment on above: Performed By: #### 1 [id number] #### [facility] [address] [place] [address] BMPOrdered By: SYSTEM SYSTEM on 06-17-2024 Anion gap [Moles/Vol] 12 mmol/L Normal 6-16 Rem isol Chem Comment on above: Performed By: #### 2 [id number] #### [facility] [address] [place] [address] Calcium [Mass/Vol] 9.3 mg/dL Normal 8.9-11.1 Remiso l Chem Comment on above: Performed By: #### 2 [id number] #### [facility] [address] [place] [address] Chloride [Moles/Vol] 108 mmol/L Normal 101-111 Paul benjamin Chem Comment on above: Performed By: #### 2 [id number] #### [facility] [address] [place] [address] CO2 [Moles/Vol] 24 mmol/L Normal 21-31 Remisol C hem Comment on above: Performed By: #### 2 [id number] #### [facility] [address] [place] [address] Creatinine [Mass/Vol] 0.9 mg/dL Normal 0.5-1.3 Rem isol Chem Comment on above: Performed By: #### 2 [id number] #### [facility] [address] [place] [address] Glucose [Mass/Vol] 86 mg/dL Normal 55-199 Remiso l Chem Comment on above: Performed By: #### 2 [id number] #### [facility] [address] [place] [address] Potassium [Moles/Vol] 4.1 mmol/L Normal 3.5-5.3 Rem isol Chem Comment on above: Performed By: #### 2 [id number] #### [facility] [address] [place] [address] Sodium [Moles/Vol] 140 mmol/L Normal 135-145 Remiso l Chem Comment on above: Performed By: #### 2 [id number] #### [facility] [address] [place] [address] Urea nitrogen [Mass/Vol] 18 mg/dL Normal 5-21 Remisol Chem Comment on above: Performed By: #### 2 [id number] #### [facility] [address] [place] [address] BMPon 06-17-2024 Urea nitrogen/Creatinine [Mass ratio] 20 No Units Normal 10-20 [facility] Comment on above: Performed By: #### 2 [id number] #### [facility] [address] [place] [address] CBC w/ Auto DiffOrdered By: SYSTEM SYSTEM on 06-17-2024 Basophils/100 WBC (Bld) 0.2 % Normal 0.0-2.0 R emisol Heme Comment on above: Performed By: #### 2 [id number] #### [facility] [address] [place] [address] Basophils/Leukocytes Auto (Bld) [Pure # fraction] 0.0 E9/L Normal 0.0-0.2 Remisol Heme Comment on above: Performed By: #### 2 [id number] #### [facility] [address] [place] [address] Eosinophils (Bld) [#/Vol] 0.2 E9/L Normal 0.0-0.5 Remisol Heme Comment on above: Performed By: #### 2 [id number] #### [facility] [address] [place] [address] Eosinophils/100 WBC (Bld) 2.0 % Normal 0.0-8.0 Remisol Heme Comment on above: Performed By: #### 2 [id number] #### [facility] [address] [place] [address] Erythrocyte distribution width (RBC) [Ratio] 13.4 % Normal 10.9-14.2 Remisol Heme Comment on above: Performed By: #### 2 [id number] #### [facility] [address] [place] [address] Hematocrit (Bld) [Volume fraction] 40.3 % Normal 34.0-46.0 Remisol Heme Comment on above: Performed By: #### 2 [id number] #### [facility] [address] [place] [address] Hemoglobin (Bld) [Mass/Vol] 13.6 g/dL Normal 12.0-16.0 Remisol Heme Comment on above: Performed By: #### 2 [id number] #### [facility] [address] [place] [address] Lymphocytes (Bld) [#/Vol] 2.4 E9/L Normal 1.0-4.0 Remisol Heme Comment on above: Performed By: #### 2 [id number] #### [facility] [address] [place] [address] Lymphocytes/100 WBC (Bld) 26.7 % Normal 14.0-50.0 Remisol Heme Comment on above: Performed By: #### 2 [id number] #### [facility] [address] [place] [address] MCH (RBC) [Entitic mass] 30.2 pg Normal 27.0-34.0 Remisol Heme Comment on above: Performed By: #### 2 [id number] #### [facility] [address] [place] [address] MCHC (RBC) [Mass/Vol] 33.8 g/dL Normal 31.4-36.0 Rem isol Heme Comment on above: Performed By: #### 2 [id number] #### [facility] [address] [place] [address] MCV (RBC) [Entitic vol] 89.3 fL Normal 80.0-100.0 R emisol Heme Comment on above: Performed By: #### 2 [id number] #### [facility] [address] [place] [address] Monocytes (Bld) [#/Vol] 0.6 E9/L Normal 0.2-1.0 R emisol Heme Comment on above: Performed By: #### 2 [id number] #### [facility] [address] [place] [address] Neutrophils (Bld) [#/Vol] 5.8 E9/L Normal 2.0-7.5 Remisol Heme Comment on above: Performed By: #### 2 [id number] #### [facility] [address] [place] [address] Neutrophils/100 WBC (Bld) 64.7 % Normal 36.0-75.0 Remisol Heme Comment on above: Performed By: #### 2 [id number] #### [facility] [address] [place] [address] Platelet 278.0 E9/L Normal 150.0-500.0 Remisol Heme Comment on above: Performed By: #### 2 [id number] #### [facility] [address] [place] [address] Platelet mean volume (Bld) [Entitic vol] 9.8 fL Normal 6.4-10.8 Remisol Heme Comment on above: Performed By: #### 2 [id number] #### [facility] [address] [place] [address] RBC (Bld) [#/Vol] 4.5 E12/L Normal 4.3-5.9 Remisol Heme Comment on above: Performed By: #### 2 [id number] #### [facility] [address] [place] [address] WBC corrected for nucl RBC Auto (Bld) [#/Vol] 8.9 E9/L Normal 4.0-11.0 Remisol H jerome Comment on above: Performed By: #### 2 [id number] #### [facility] [address] [place] [address] CHEMISTRYOrdered By: SYSTEM SYSTEM on 06-17-2024 Urea nitrogen/Creatinine [Mass ratio] 20 mg/mg Normal 10 - 20 Remisol Chem HEMATOLOGYOrdered By: SYSTEM SYSTEM on 06-17-2024 Monocytes/100 WBC (Bld) 6.4 % Normal 4.0 - 14.0 % Remisol Heme UA WITH CULT RFLXon 06-17-19 25 BACTERIA:PRTHR:PT:URINE :ORD:AUTOMATED Trace Trace /HPF [facility] BILIRUBIN:PRTHR:PT:URIN E:ORD:TEST STRIP.AUTOMATED Negative Negative mg/dL [facility] EPITHELIAL CELLS.SQUAMOUS:NARIC:PT :URINE SED:QN:AUTOMATED COUNT 3-4 CD:[id number] [facility] ERYTHROCYTES:PRTHR:PT:U RINE SED:ORD:MICROSCOPY.LIGH T 0-3 [facility] CLARITY:TYPE:PT:URINE:N OM: Clear Clear [facility] CLASS:TYPE:PT:URINE COLLECTION METHOD:NOM:* Clean Catch [facility] COLOR:TYPE:PT:URINE:NOM :AUTO Dark-Yellow Abnormal Yellow [facility] Comment on above: Microscopic readings are only performed on those samples that meet specific criteria set forth by [facility]. [facility] [place] PH:LSCNC:PT:URINE:QN:TE ST STRIP 6.5 5.0 - 9.0 [facility] SPECIFIC GRAVITY:RDEN:PT:URINE:Q N:TEST STRIP 1.011 1.005 - 1.030 [facility] GLUCOSE:PRTHR:PT:URINE: ORD:TEST STRIP Negative Negative mg/dL [facility] HEMOGLOBIN:MCNC:PT:URIN E:SEMIQN:TEST STRIP.AUTOMATED Negative Negative mg/dL [facility] Interpretation and review of laboratory results Abnormal [facility] KETONES:PRTHR:PT:URINE: ORD:TEST STRIP.AUTOMATED Negative Negative mg/dL [facility] LEUKOCYTE ESTERASE:PRTHR:PT:URINE :ORD:TEST STRIP.AUTOMATED 250 Chante/uL Abnormal Negative CD:[id number] [facility] LEUKOCYTES:NARIC:PT:URI NE SED:QN:AUTOMATED COUNT 0-5 [facility] MUCUS:PRTHR:PT:URINE:OR D:AUTOMATED Trace Negative CD:[id number] [facility] NITRITE:PRTHR:PT:URINE: ORD:TEST STRIP.AUTOMATED 1+ Abnormal Negative mg/dL [facility] PROTEIN:PRTHR:PT:URINE: ORD:TEST STRIP Negative Negative mg/dL [facility] UROBILINOGEN:MCNC:PT:UR INE:SEMIQN:TEST STRIP Negative Negative mg/dL [facility] Original Ordering Provider: DO Clint Boogie [facility] UA with Cult Rflxon 06-17-19 25 Bacteria Auto Ql (U) Trace Normal Trace Fish [facility] Comment on above: Performed By: #### 4 [id number] #### [facility] [address] [place] [address] Clarity (U) Clear Normal Clear [facility] Comment on above: Performed By: #### 4 [id number] #### [facility] [address] [place] [address] Color (U) Dark-Yellow Abnormal Yellow [facility] Comment on above: Result Comment: Micr oscopic readings are only performed on those samples that meet specific criteria set forth by [facility]. Performed By: #### 4 [id number] #### [facility] [address] [place] [address] Epithelial cells.squamous Auto (Urine sed) [#/Area] 3-4 Invalid Interpretation Code [facility] Comment on above: Performed By: #### 4 [id number] #### [facility] [address] [place] [address] Leukocyte esterase Auto test strip Ql (U) 250 Chante/uL Abnormal Negative [facility] Comment on above: Performed By: #### 4 [id number] #### [facility] [address] [place] [address] Mucus Auto Ql (U) Trace Normal Negative [facility] Comment on above: Performed By: #### 4 [id number] #### [facility] [address] [place], [place] [id number] Nitrite Auto test strip Ql (U) 1+ mg/dL Abnormal Negative [facility] Comment on above: Performed By: #### 4 [id number] #### [facility] [address] [place], [place] [address] pH (U) 6.5 [pH] Invalid Interpretation Code 5.0-9.0 [facility] Comment on above: Performed By: #### 4 [id number] #### [facility] [address] [place], [place] [address] RBC Ql (U) 0-3 Normal 0-3 [facility] Comment on above: Performed By: #### 4 [id number] #### [facility] [address] [place], [place] [address] Specific gravity (U) [Rel density] 1.011 Invalid Interpretation Code 1.005-1.030 [facility] Comment on above: Performed By: #### 4 [id number] #### [facility] [address] [place] [address] WBC Auto (Urine sed) [#/Area] 0-5 Normal 0-5 [facility] Comment on above: Performed By: #### 4 [id number] #### [facility] [address] [place] [address] Type of Urine collection method Clean Catch Normal [facility] Comment on above: Performed By: #### 4 [id number] #### [facility] [address] [place] [address] UA with Cult RflxOrdered By: SYSTEM SYSTEM on 06-17-2024 Bilirubin Ql (U) Negative Normal Negative [facility] UA Auto SS Comment on above: Performed By: #### 4 [id number] #### [facility] [address] [place] [address] Glucose Ql (U) Negative Normal Negative [facility] UA Au to SS Comment on above: Performed By: #### 4 [id number] #### [facility] [address] [place] [address] Hemoglobin Auto test strip (U) [Mass/Vol] Negative Normal Negative [facility] UA Aut o SS Comment on above: Performed By: #### 4 [id number] #### [facility] [address] [place] [address] Ketones Auto test strip Ql (U) Negative Normal Negative [facility] UA Auto SS Comment on above: Performed By: #### 4 [id number] #### [facility] [address] [place] [address] Protein Ql (U) Negative Normal Negative [facility] UA Au to SS Comment on above: Performed By: #### 4 [id number] #### [facility] [address] [place] [address] Urobilinogen (U) [Mass/Vol] Negative Normal Negative [facility] UA Auto SS Comment on above: Performed By: #### 4 [id number] #### [facility] [address] [place] [address] URINALYSISOrdered By: SYSTEM SYSTEM on 06-17-2024 Bacteria Auto Ql (U) Trace /HPF Normal Trace/HPF [facility] UA Auto SS Clarity (U) Clear (06/17/24 1:00 PM) Normal Clear [facility] UA Auto SS Color (U) Dark-Yellow 1 *ABN* (06/17/24 1:00 PM) Invalid Interpretation Code Yellow [facility] UA Auto SS Comment on above: Interpretive Data: M icroscopic readings are only performed on those samples that meet specific criteria set forth by [facility]. Epithelial cells.squamous Auto (Urine sed) [#/Area] 3-4 graded/HPF Invalid Interpretation Code [facility] UA Auto SS Leukocyte esterase Auto test strip Ql (U) 250 Chante/uL Chante/uL Invalid Interpretation Code NegativeLeu /uL [facility] [place] UA Auto SS Mucus Auto Ql (U) Trace graded/LPF Normal Negati vegra ded/LPF [facility] UA Auto SS Nitrite Auto test strip Ql (U) 1+ mg/dL Invalid Interpretation Code Negativemg/ dL [facility] UA Auto SS pH (U) 6.5 *NA* (06/17/24 1:00 PM) Invalid Interpretation Code 5.0 - 9.0 [facility] UA Auto SS RBC Ql (U) 0-3 graded/HPF Normal 0-3graded/H PF [facility] UA Auto SS Specific gravity (U) [Rel density] 1.011 *NA* (06/17/24 1:00 PM) Invalid Interpretation Code 1.005 - 1.030 [facility] UA Auto SS WBC Auto (Urine sed) [#/Area] 0-5 graded/HPF Normal 0-5graded/H PF [facility] UA Auto SS URINALYSISOrdered By: Anaid Wells on 06-17-2024 UA Spec Desc Clean Catch (06/17/24 1:00 PM) Normal [facility] [place] UA Auto SS eGFROrdered By: SYSTEM [employer] [place] on 06-17-2024 eGFR 76 mL/min/1.73 m2 Normal >=59 Remisol Chem Comment on above: Performed By: #### 1 [id number] #### [facility] [address] [place] [address] Lipid 1996 panelon 4 Cholesterol [Mass/Vol] 140 mg/dL Low 150-200 Pr [facility] Comment on above: Performed By: #### 2 4331-1 #### [facility] ([id number]) [address], [address] [place] [address] Cholesterol in HDL [Mass/Vol] 46 mg/dL Normal >39 [facility] Comment on above: Result Comment: HDL <40 mg/dL - High Risk HDL > or = 40mg/dL- Desirable HDL >60 mg/dL - Negative Risk Performed By: #### 2 4331-1 #### [facility] ([id number]) [address], [address] [place] [address] Cholesterol in LDL [Mass/Vol] 64 mg/dL Normal <130 [facility] Comment on above: Result Comment: LDL <100 mg/dL - Desirable LDL >160 mg/dL - High Risk Performed By: #### 2 4331-1 #### [facility] ([id number]) [address], [address] [place] [address] Cholesterol in VLDL [Mass/Vol] 30 mg/dL Normal 0-30 [facility] Comment on above: Performed By: #### 2 4331-1 #### [facility] ([id number]) [address], [address] [place] [address] CHOLESTEROL:HDL 3.0 Normal 1.0-5.0 [facility] Comment on above: Performed By: #### 2 4331-1 #### [facility] ([id number]) [address], [address] [place] [address] Triglyceride [Mass/Vol] 152 mg/dL High 27-150 P [facility] Comment on above: Performed By: #### 2 4331-1 #### [facility] ([id number]) [address], [address] [place] [address] XR Knee - right 3 [facility] Result: Three views, bilateral PA weight-bearing, sunrise, lateral of the right knee(s) taken today and saved to the permanent medical record are reviewed. Complete loss of medial joint space at right knee, mild PF arthritis with slight lateral tilting of both patella. Moderate lateral compartment narrowing at right knee as well. [facility] XR Knee - right 3 [facility] Study observation (narrative) [facility] Laboratory - Chemistry and C hemistry - challengeon 12-26-2023 Cholesterol [Mass/Vol] 139 mg/dL Fi [facility] Cholesterol in HDL [Mass/Vol] 43 mg/dL [facility] Cholesterol in LDL [Mass/Vol] 46 mg/dL [facility] Triglyceride [Mass/Vol] 252 mg/dL F [facility] Lipid 1996 panelon Cholesterol [Mass/Vol] 139 mg/dL Low 150-200 Pr [facility] Comment on above: Performed By: #### 2 4331-1 #### [facility] ([id number]) [address], [address] [place] [address] Cholesterol in HDL [Mass/Vol] 43 mg/dL Normal >39 [facility] Comment on above: Result Comment: HDL <40 mg/dL - High Risk HDL > or = 40mg/dL- Desirable HDL >60 mg/dL - Negative Risk Performed By: #### 2 4331-1 #### [facility] ([id number]) [address], [address] [place] [address] Cholesterol in LDL [Mass/Vol] 46 mg/dL Normal <130 [facility] Comment on above: Result Comment: LDL <100 mg/dL - Desirable LDL >160 mg/dL - High Risk Performed By: #### 2 4331-1 #### [facility] ([id number]) [address], [address] [place] [address] Cholesterol in VLDL [Mass/Vol] 50 mg/dL High 0-30 [facility] Comment on above: Performed By: #### 2 4331-1 #### [facility] ([id number]) [address] [place] [address] CHOLESTEROL:HDL 3.2 Normal 1.0-5.0 [facility] Comment on above: Performed By: #### 2 4331-1 #### [facility] ([id number]) [address] [place] [address] Triglyceride [Mass/Vol] 252 mg/dL High 27-150 P [facility] Comment on above: Performed By: #### 2 4331-1 #### [facility] ([id number]) [address], [address] [place] [address] No Panel Informationon 12-25 VLDL Cholesterol 50 mg/dL [facility] HCG ( test) IA.rapi d Ql (U)Ordered By: Farrah Hinojosa on 12-05-2023 HCG ( test) Ql (U) Negative [facility] HCG,Urineon 12-05-2023 Beta HCG ( test) Ql (U) Negative Normal [facility] Comment on above: Result Comment: PERF ORMED BY: [place] [address] PATHOLOGIST TRANSIT PLANNING DIRECTOR MEGAN CÁRDENAS M.D. Performed By: #### U HCG #### [facility] [address] [place], [place] [id number] [place] Alanine aminotransferase [En zymatic activity/volume] in Serum or PlasmaOrdered By: Mookie Ospina on 12-01-2023 ALT [Catalytic activity/Vol] 19 U/L 7-52 [facility] Comment on above: Performed By: #### C BC, CMP wRFX A1C #### [facility] [address] [place], [place] [id number] [place] Albumin [Mass/volume] in Ser um or Plasma by Bromocresol green (BCG) dye binding methoOrdered By: Mookie Ospina on 12-01-2023 Albumin BCG dye [Mass/Vol] 4.2 g/dL 3.5-5.7 [facility] Alkaline phosphatase [Enzyma tic activity/volume] in Serum or PlasmaOrdered By: Mookie Ospina on 12-01-2023 ALP [Catalytic activity/Vol] 58 U/L 34-104 [facility] Comment on above: Result Comment: PERF ORMED BY: [place] [address] PATHOLOGIST TRANSIT PLANNING DIRECTOR MEGAN CÁRDENAS M.D. Performed By: #### C BC, CMP wRFX A1C #### [address] Aspartate aminotransferase [ Enzymatic activity/volume] in Serum or PlasmaOrdered By: Mookie Ospina on 12-01-2023 AST [Catalytic activity/Vol] 24 U/L 13-39 [facility] Comment on above: Performed By: #### C BC, CMP wRFX A1C #### [address] Automated basophil %Ordered By: Mookie Ospina on 12-01-2023 Basophils/100 WBC (Bld) 0.4 % . [facility] Comment on above: Performed By: #### C BC, CMP wRFX A1C #### [address] Automated basophil countOrde red By: Mookie Ospina on 12-01-2023 Basophils (Bld) [#/Vol] 0.0 10*3/uL 0.0-0.2 [facility] Comment on above: Result Comment: PERF ORMED BY: [place] [address] PATHOLOGIST TRANSIT PLANNING DIRECTOR MEGAN CÁRDENAS M.D. Performed By: #### C BC, CMP wRFX A1C #### [address] Automated blood monocyte cou ntOrdered By: Mookie Ospina on 12-01-2023 Monocytes (Bld) [#/Vol] 0.5 10*3/uL 0.0-0.8 [facility] Comment on above: Performed By: #### C BC, CMP wRFX A1C #### [address] Automated eosinophil %Ordere d By: Mookie Ospina on 12-01-2023 Eosinophils/100 WBC (Bld) 2.4 % . [facility] Comment on above: Performed By: #### C BC, CMP wRFX A1C #### [address] Automated eosinophil countOr dered By: Mookie Ospina on 12-01-2023 Eosinophils (Bld) [#/Vol] 0.2 10*3/uL 0.0-0.45 [facility] Comment on above: Performed By: #### C BC, CMP wRFX A1C #### [address] Automated monocyte %Ordered By: Mookie Ospina on 12-01-2023 Monocytes/100 WBC (Bld) 5.9 % . [facility] Comment on above: Performed By: #### C BC, CMP wRFX A1C #### [address] Automated neutrophil %Ordere d By: Mookie Ospina on 12-01-2023 Neutrophils/100 WBC (Bld) 69.5 % . [facility] Comment on above: Performed By: #### C BC, CMP wRFX A1C #### [address] Bilirubin.total [Mass/volume ] in Serum or PlasmaOrdered By: Mookie Ospina on 12-01-2023 Bilirubin [Mass/Vol] 0.6 mg/dL 0.3-1.0 [facility] Comment on above: Performed By: #### C BC, CMP wRFX A1C #### [address] CMP with reflex to A1Con Albumin [Mass/Vol] 4.2 g/dL Normal 3.5-5.7 [facility] Comment on above: Performed By: #### C BC, CMP wRFX A1C #### [address] GFR/1.73 sq M.predicted MDRD (S/P/Bld) [Vol rate/Area] mL/min/{1.73_m2} Normal [facility] Comment on above: Performed By: #### C BC, CMP wRFX A1C #### [address] Calcium [Mass/volume] in Ser um or PlasmaOrdered By: Mookie Ospina on 12-01-2023 Calcium [Mass/Vol] 8.8 mg/dL 8.6-10.3 [facility] Comment on above: Performed By: #### C BC, CMP wRFX A1C #### [address] Carbon dioxide, total [Moles /volume] in Serum or PlasmaOrdered By: Mookie Ospina on 12-01-2023 CO2 [Moles/Vol] 29.7 mmol/L 21.0-31.0 [facility] Comment on above: Performed By: #### C BC, CMP wRFX A1C #### [place] [address] [place] Chloride [Moles/volume] in S kimberley or PlasmaOrdered By: Mookie Ospina on 12-01-2023 Chloride [Moles/Vol] 103 mmol/L 98-107 [facility] Comment on above: Performed By: #### C BC, CMP wRFX A1C #### [address] Complete Blood Count Auto Di ffon 12-01-2023 Mean Corpuscular HGB Conc 33.9 g/dL Normal 32.0-35.0 [facility] Comment on above: Performed By: #### C BC, CMP wRFX A1C #### [place] [address] [place] NRBC% 0.1 /100{WBC} Normal 0-0.[address] [facility] Comment on above: Performed By: #### C BC, CMP wRFX A1C #### [place] [address] [place] Creatinine [Mass/volume] in Serum or PlasmaOrdered By: Mookie Ospina on 12-01-2023 Creatinine [Mass/Vol] 1.02 mg/dL 0.60-1.20 [facility] Comment on above: Performed By: #### C BC, CMP wRFX A1C #### [facility] [address] Erythrocyte distribution wid th [Ratio] by Automated countOrdered By: Mookie Ospina on 12-01-2023 Erythrocyte distribution width (RBC) [Ratio] 13.4 % 11.9-15.3 [facility] Comment on above: Performed By: #### C BC, CMP wRFX A1C #### [facility] [address] [place] [address] [place] Erythrocytes [#/volume] in B lood by Automated countOrdered By: Mookie Ospina on 12-01-2023 RBC (Bld) [#/Vol] 4.72 10*6/uL 3.60-5.00 [facility] Comment on above: Performed By: #### C BC, CMP wRFX A1C #### [facility] [address] [place] [address] [place] Glucose [Mass/volume] in Ser um or PlasmaOrdered By: Mookie Ospina on 12-01-2023 Glucose [Mass/Vol] 90 mg/dL 70-100 [facility] Comment on above: Performed By: #### C BC, CMP wRFX A1C #### [facility] [address] [place] [address] [place] Hematocrit [Volume Fraction] of Blood by Automated countOrdered By: Mookie Ospina on 12-01-2023 Hematocrit (Bld) [Volume fraction] 41.6 % 34.0-46.4 [facility] Comment on above: Performed By: #### C BC, CMP wRFX A1C #### [facility] [address] [place] [address] [place] Hemoglobin [Mass/volume] in BloodOrdered By: Mookie Ospina on 12-01-2023 Hemoglobin (Bld) [Mass/Vol] 14.1 g/dL 11.8-15.4 [facility] Comment on above: Performed By: #### C BC, CMP wRFX A1C #### [facility] [address] [place] [address] Leukocytes [#/volume] correc dayanna for nucleated erythrocytes in Blood by Automated counOrdered By: Mookie Ospina on 12-01-2023 WBC corrected for nucl RBC Auto (Bld) [#/Vol] 8.1 10*3/uL 3.8-11.6 [facility] Leukocytes [#/volume] in Blo od by Automated countOrdered By: Mookie Ospina on 12-01-2023 WBC (Bld) [#/Vol] 8.1 10*3/uL 3.8-11.6 [facility] Comment on above: Performed By: #### C BC, CMP wRFX A1C #### [facility] [address] [place] [address] Lymphocytes [#/volume] in Bl ood by Automated countOrdered By: Mookie Ospina on 12-01-2023 Lymphocytes (Bld) [#/Vol] 1.8 10*3/uL 1.00-4.8 [facility] Comment on above: Performed By: #### C BC, CMP wRFX A1C #### [facility] [address] [place] [address] [place] Lymphocytes/100 leukocytes i n Blood by Automated countOrdered By: Mookie Ospina on 12-01-2023 Lymphocytes/100 WBC (Bld) 21.8 % . [facility] Comment on above: Performed By: #### C BC, CMP wRFX A1C #### [facility] [address] [place] [address] [place] MCH [Entitic mass] by Automa dayanna countOrdered By: Mookie Ospina on 12-01-2023 MCH (RBC) [Entitic mass] 29.8 pg 24.7-34.3 [facility] Comment on above: Performed By: #### C BC, CMP wRFX A1C #### [facility] [address] [place] [address] [place] MCHC Auto (RBC) [Mass/Vol]Or dered By: Mookie Ospina on 12-01-2023 MCHC (RBC) [Mass/Vol] 33.9 g/dL 32.0-35.0 [facility] MCV [Entitic volume] by Auto mated countOrdered By: Mookie Ospina on 12-01-2023 MCV (RBC) [Entitic vol] 88.0 fL 80-100 F [facility] Comment on above: Performed By: #### C BC, CMP wRFX A1C #### [facility] [address] [place] [address] Neutrophils [#/volume] in Bl ood by Automated countOrdered By: Mookie Ospina on 12-01-2023 Neutrophils (Bld) [#/Vol] 5.7 10*3/uL 1.8-7.7 [facility] Comment on above: Performed By: #### C BC, CMP wRFX A1C #### [facility] [address] [place] [address] No Panel InformationOrdered By: Mookie Ospina on 12-01-2023 Estimated GFR (CKD-EPI) > 60.0 mL/Min [facility] Creatinine Clearance (Chem N/A [facility] Nucleated erythrocytes [Pres ence] in Blood by Automated countOrdered By: Mookie Ospina on 12-01-2023 Nucleated RBC Auto Ql (Bld) 0.1 /100{WBC} 0-0.5 [facility] Platelet mean volume [Entiti c volume] in Blood by Automated countOrdered By: Mookie Ospina on 12-01-2023 Platelet mean volume (Bld) [Entitic vol] 9.1 fL 6.3-10.7 [facility] Comment on above: Performed By: #### C BC, CMP wRFX A1C #### [facility] [address] [place] [address] Platelets [#/volume] in Bloo d by Automated countOrdered By: Mookie Ospina on 12-01-2023 Platelets (Bld) [#/Vol] 250 10*3/uL 150-450 [facility] Comment on above: Performed By: #### C BC, CMP wRFX A1C #### [facility] [address] Potassium [Moles/volume] in Serum or PlasmaOrdered By: Mookie Ospina on 12-01-2023 Potassium [Moles/Vol] 3.7 mmol/L 3.5-5.1 [facility] Comment on above: Performed By: #### C BC, CMP wRFX A1C #### [facility] [address] [place] [address] Protein [Mass/volume] in Ser um or PlasmaOrdered By: Mookie Ospina on 12-01-2023 Protein [Mass/Vol] 6.6 g/dL 6.4-8.9 [facility] Comment on above: Performed By: #### C BC, CMP wRFX A1C #### [address] Serum globulin measurement b y calculation (mass/volume)Ordered By: Mookie Ospina on 12-01-2023 Globulin (S) [Mass/Vol] 2.4 g/dL [facility] Comment on above: Performed By: #### C BC, CMP wRFX A1C #### [facility] [address] [place] [address] Serum or plasma albumin/glob ulin mass ratioOrdered By: Mookie Ospina on 12-01-2023 Albumin/Globulin [Mass ratio] 1.8 {ratio} [facility] Comment on above: Performed By: #### C BC, CMP wRFX A1C #### [facility] [address] [place] [address] Serum or plasma anion gap de terminationOrdered By: Mookie Ospina on 12-01-2023 Anion gap [Moles/Vol] 10.0 mmol/L 6.0-15.0 [facility] Comment on above: Performed By: #### C BC, CMP wRFX A1C #### [facility] [address] [place] [address] [place] Sodium [Moles/volume] in Ser um or PlasmaOrdered By: Mookie Ospina on 12-01-2023 Sodium [Moles/Vol] 139 mmol/L 136-145 [facility] Comment on above: Performed By: #### C BC, CMP wRFX A1C #### [facility] [address] [place] [id number] [facility] Urea nitrogen [Mass/volume] in Serum or PlasmaOrdered By: Mookie Opsina on 12-01-2023 Urea nitrogen [Mass/Vol] 16 mg/dL 7-25 [facility] Comment on above: Performed By: #### C BC, CMP wRFX A1C #### [facility] [address] [place] [id number] [facility] XR knee RT 4V*on 11-25-2023 XR knee RT 4V* [facility] [address] [place] [address] XRay Report Signed Patient: Carly Cesar MR#: [id number] : 1970 Acct:[id number] Age/Sex: 53 / F ADM Date: 11/25/23 [place] [facility] [place] Type: [facility] CLI Attending Dr: Mookie Ospina DO Copies to: Mookie Ospina DO Ordering Provider: Mookie Ospina DO Date of Service: 11/25/23 XR/XR knee LT 2V: M25.561 - Pain in right knee ([id number]) XR/XR knee RT 4V*: M25.561 - Pain in right knee CLINICAL DATA: Chronic right knee pain laterally, without injury. Comparison left knee. RIGHT KNEE - 4 views COMPARISON: 06/19/2022 Weightbearing AP, lateral, skiers and sunrise views were obtained. No acute fractures or dislocation are noted. No patellar subluxation is seen. There is mild to possibly moderate narrowing at the medial tibiofemoral joint compartment. There is slight squaring off of the articular margins. There is no knee effusion or soft tissue swelling. XR/XR knee LT 2V IMPRESSION: MILD DEGENERATIVE CHANGE. LEFT KNEE - 2 views COMPARISON: None Weightbearing AP and sunrise views were obtained. There is no acute fracture or dislocation. There is no patellar subluxation. No disproportionate joint space narrowing or prominent hypertrophy is visualized. The soft tissues are within normal limits. IMPRESSION: NO ACUTE BONY FINDINGS. Impression dictated by: Alyssa Ambriz M.D.11/25/2023 11:48 AM Dictation Location: [place] [address] Transcribed By: [facility] 11/25/23 1148 Dictated By: Alyssa Ambriz MD 11/25/23 1146 Signed By: 11/25/23 1148 Normal [facility] 36on 10-27-2023 36 Called and told patient to try hinged brace Normal [facility] 36on 10-24-2023 36 Patient has question s about right knee, wonders if milagro can suggest a knee brace for her over the phone. Normal [facility] No Panel Informationon 10-22 Thyroid Stimulating Hormone 3rd Gen 1.32 [facility] - Chemistry and C hemistry - challengeon 10-18-2023 Bilirubin Ql (U) Negative [facility] Glucose (U) [Mass/Vol] Negative [facility] Ketones Ql (U) trace [facility] pH (U) 6.5 [pH] [facility] Specific gravity (U) [Rel density] 1.025 [facility] Urobilinogen (U) [Mass/Vol] 1.0 mg/dL [facility] - Specimen inform ationon 10-18-2023 Appearance (U) cloudy [facility] Color (U) yellow [facility] - Urinalysison Leukocyte esterase Test strip Ql (U) small [facility] Nitrite Ql (U) Negative [facility] Protein Ql (U) Negative [facility] No Panel Informationon 10-17 Urine Occult Blood small [facility] Urine Cultureon 10-18-2023 Bacteria identified Cx Nom (U) 50,000 colonies/ml mixed bacterial skin contaminants 2 Days PERFORMED BY: [place] [id number] PATHOLOGIST TRANSIT PLANNING DIRECTOR MEGAN CÁRDENAS M.D. Normal [facility] Comment on above: Performed By: #### C UU #### [address] Urine culture routineOrdered By: Darlin Florian on 10-18-2023 Bacteria identified Cx Nom (U) 2 Days [facility] Lipid 1996 panelon Cholesterol [Mass/Vol] 139 mg/dL Low 150-200 Pr [facility] Comment on above: Performed By: #### 2 4331-1 #### [facility] ([id number]) [address], [address] [place] [address] Cholesterol in HDL [Mass/Vol] 41 mg/dL Normal >39 [facility] Comment on above: Result Comment: HDL <40 mg/dL - High Risk HDL > or = 40mg/dL- Desirable HDL >60 mg/dL - Negative Risk Performed By: #### 2 4331-1 #### [facility] ([id number]) [address] [place] [address] Cholesterol in LDL [Mass/Vol] 60 mg/dL Normal <130 [facility] Comment on above: Result Comment: LDL <100 mg/dL - Desirable LDL >160 mg/dL - High Risk Performed By: #### 2 4331-1 #### [facility] ([id number]) [address] [place] [address] Cholesterol in VLDL [Mass/Vol] 38 mg/dL High 0-30 [facility] Comment on above: Performed By: #### 2 4331-1 #### [facility] ([id number]) [address] [place] [address] CHOLESTEROL:HDL 3.4 Normal 1.0-5.0 [facility] Comment on above: Performed By: #### 2 4331-1 #### [facility] ([id number]) [address] [place] [address] Triglyceride [Mass/Vol] 192 mg/dL High 27-150 P [facility] Comment on above: Performed By: #### 2 4331-1 #### [facility] ([id number]) [address] [place] [address] 36on 07-23-2023 36 Called and spoke wit h patient she is going to check with PCP first and than call us back if she needs an appointment. [facility] 36 Patient last spoke with Don 06/30/23 in regards to injection and never received a call back with an answer, please call patient thank you [facility] L Inj/Asp: R subacromial bur saon 07-14-2023 Fiona Winn NP 07/14/2023 9:24 AM L Inj/Asp: R subacromial bursa on 07/14/2023 9:23 AM Indications: pain Details: 21 G needle, posterior approach Medications: 40 mg methylPREDNISolone acetate 40 MG/ML Outcome: tolerated well, no immediate complications Utilizing aseptic technique with universal precautions . Pt given injection Right Shoulder SA space Procedure, treatment alternatives, risks and benefits explained, specific risks discussed. Consent was given by the patient. [facility] 07-08-2023 36 Done, thanks [facility] Orders Onlyon 07-08-2023 Orders Only [id number] Carly Cesar 1970 F Date Provider Department Center 07/08/2023 MARISELA SCHWAB MP ORTHO MPORTHO Family History Family history unknown: Yes [facility] 36on 07-07-2023 36 Patient calling in for refill of mobic. She is using [facility] Telephoneon 07-07-2023 Telephone [phone] Carly Cesar 1970 F Date Provider Department Center 07/07/2023 MARISELA SCHWAB MP ORTHO MPORTHO Family History Family history unknown: Yes [facility] 36on 06-30-2023 36 Called and told patient we resubmitted [facility] Orders Onlyon 06-30-2023 Orders Only [id number] Carly Cesar 1970 F Date Provider Department [place] 06/30/2023 SANDRA SALMERON MP ORTHO MPORTHO Family History Family history unknown: Yes [facility] 36on 06-27-2023 36 Is lillian approved [facility] Procedure Visiton 06-05-2023 Procedure Visit [id number] Carly Cesar 1970 F Date Provider Department [place] 06/05/2023 499MARISELA AVILES MP ORTHO MPORTHO Family History Family history unknown: Yes Level of Service:45753 [place] OFFICE/OUTPATIENT ESTABLISHED LOW MDM 20 MIN Reason for Visit and Comments: Follow-up [470618] - No pain at the moment, but has been having pain since the CSI wore off. [facility] Letter (Out)on 03-03-2023 Letter (Out) [id number] Carly Cesar 1970 Date Provider Department [place] 03/03/2023 None-None [facility] [place] [facility] Family History Family history unknown: Yes [facility] Follow-Upon 02-28-2023 Follow-Up [id number] Carly Cesar 1970 Date [facility] [place] 02/28/2023 MARISELA SCHWAB MP ORTHO MPORTHO Family History Family history unknown: Yes Level of Service:77106 [place] OFFICE/OUTPT VISIT,PROCEDURE ONLY Reason for Visit and Comments: Pain [136] - Zilrjaneen [facility] 36on 02-19-2023 36 Spoke with patient and made an appointment for 02/28/23 [facility] 36on 02-17-2023 36 Patient called in stating she got a denial letter in the mail on Friday for the injection you requested. Wants to know what you want to do next? [facility] Telephoneon 02-12-2023 Telephone [phone] Carly Cesar 1970 Date Provider Department [place] 02/12/2023 836-MIKE ARREAGA MP ORTHO MPORTHO Family History Family history unknown: Yes Normal [facility] Follow-Upon 01-31-2023 Follow-Up [id number] Carly Cesar 1970 F Date Provider Department Center 01/31/2023 499-MARISELA GARCIA MP ORTHO MPORTHO Family History Family history unknown: Yes Level of Service:12111 [place] OFFICE/OUTPATIENT ESTABLISHED LOW MDM 20-29 MIN Reason for Visit and Comments: Edema [[id number]] - R knee pain with ,mild edema Pain [136] - R knee pain with ,mild edema Follow-up [577615] - R knee pain with ,mild edema Normal [facility] MRI KNEE RT WO CONon 023 MRI KNEE RT WO CON EXAM: MRI KNEE RT WO CON COMPARISON: Right knee x-rays from 06/19/2022. HISTORY: Chronic medial right knee pain since an injection on 04/29/2022. Posterior knee pain as well. TECHNIQUE: Multiplanar and multisequence imaging of the right knee was performed without contrast. FINDINGS: Motion artifact mildly degrades evaluation on this study. The anterior cruciate ligament, posterior cruciate ligament, and collateral ligaments are intact. There is intermediate signal of the patellar tendon consistent with mild tendinopathy. The distal quadriceps tendon is intact. Evaluation of the medial meniscus demonstrates irregularity and fraying of the free edge of the posterior horn and body of the medial meniscus. There is a subtle area of increased signal along the femoral articular surface of the body of the medial meniscus suspicious for a small horizontal tear seen on coronal fat-saturated proton density image 17. There is also a possible small undersurface tear towards the free edge of the posterior horn of the medial meniscus on sagittal fat-saturated proton density image 11. There is moderate grade articular cartilage loss in the medial compartment more pronounced centrally. No lateral meniscal tear is evident. The articular cartilage in the lateral compartment is preserved. There is a small to moderate joint effusion. Low-grade articular cartilage loss involves the patella. There is no significant Zhang's cyst. No acute bony abnormality is identified. IMPRESSION: 1. There is free edge fraying of the body and posterior horn of the medial meniscus with a suspected small horizontal tear along the femoral articular surface of the body of the medial meniscus seen on a single coronal image. There is also a possible small undersurface tear of the posterior horn of the medial meniscus towards the free edge as described above. Moderate grade articular cartilage loss is evident in the medial compartment. 2. No MRI evidence of lateral meniscal tear or acute ligament tear. 3. There is a small to moderate joint effusion with low-grade articular cartilage loss involving the patella. Electronically authenticated by: FARRAH GAINES Date: 2022-06-25 17:30 Normal [facility] CBC AUTO DIFFon 04-30-2022 BASO # 0.0 103/ul Normal 0.0-0.1 [facility] Comment on above: Performed By: #### C BC #### [facility] [address] [address] [address] Asya Mitchell Basophils/100 WBC (Bld) 0.4 % Normal 0.2-2.0 [facility] Comment on above: Performed By: #### C BC #### [facility] [address] [place] [address] Dr. Asya Mitchell EO # 0.2 103/ul Normal 0.0-0.7 [facility] Comment on above: Performed By: #### C BC #### [facility] [address] [address] [address] Asya Mitchell Eosinophils/100 WBC (Bld) 2.5 % Normal 0.9-7.0 [facility] Comment on above: Performed By: #### C BC #### [facility] [address] [address] [address] Asya Mitchell Erythrocyte distribution width (RBC) [Ratio] 12.4 % Normal 11.0-15.0 [facility] Comment on above: Performed By: #### C BC #### [facility] [address] [address] [address] Asya Mitchell Hematocrit (Bld) [Volume fraction] 41.8 % Normal 36.0-48.0 [facility] Comment on above: Performed By: #### C BC #### [facility] [address] [place] [address] Dr. Asya Mitchell Hemoglobin (Bld) [Mass/Vol] 14.0 g/dL Normal 12.0-16.0 [facility] Comment on above: Performed By: #### C BC #### [facility] [address] [place] [address] Dr. Asya Mitchell IG # 0.03 10e3/ul Normal 0.00-0.03 [facility] Comment on above: Performed By: #### C BC #### [facility] [address] [place] [address] Dr. Asya Mitchell IG % 0.4 % Normal 0.0-0.5 [facility] Comment on above: Performed By: #### C BC #### [facility] [address] [place] [address] Dr. Asya Mitchell LYMPH # 2.3 103/ul Normal 1.2-3.8 [facility] Comment on above: Performed By: #### C BC #### [facility] [address] [place] [address] Dr. Asya Mitchell Lymphocytes/100 WBC (Bld) 27.1 % Normal 20.5-60.0 [facility] Comment on above: Performed By: #### C BC #### [facility] [address] [place] [address] Dr. Asya Mitchell MANUAL DIFF REQ NO Normal [facility] Comment on above: Performed By: #### C BC #### [facility] [address] [place] [address] Dr. Asya Mitchell MCH (RBC) [Entitic mass] 29.6 pg Normal 26.7-34.0 [facility] Comment on above: Performed By: #### C BC #### [facility] [address] [place] [address] Dr. Asya Mitchell MCHC (RBC) [Mass/Vol] 33.5 g/dL Normal 29.9-35.2 [facility] Comment on above: Performed By: #### C BC #### [facility] [address] [place] [address] Dr. Asya Mitchell MCV (RBC) [Entitic vol] 88.4 fL Normal 81.0-99.0 [facility] Comment on above: Performed By: #### C BC #### [facility] [address] [place] [address] Dr. Asya Mitchell MONO # 0.6 103/ul Normal 0.3-0.8 [facility] Comment on above: Performed By: #### C BC #### [facility] [address] [place] [address] Dr. Asya Mitchell Monocytes/100 WBC (Bld) 7.4 % Normal 1.7-12.0 [facility] Comment on above: Performed By: #### C BC #### [facility] [address] [place] [address] Dr. Asya Mitchell NEUT # 5.2 103/ul Normal 1.4-6.5 [facility] Comment on above: Performed By: #### C BC #### [facility] [address] [place] [address] Dr. Asya Mitchell Neutrophils/100 WBC (Bld) 62.2 % Normal 43.0-75.0 [facility] Comment on above: Performed By: #### C BC #### [facility] [address] [place] [address] Dr. Asya Mitchell Platelet mean volume (Bld) [Entitic vol] 10.5 fL Normal 9.5-13.5 [facility] Comment on above: Performed By: #### C BC #### [facility] [address] [place] [address] Dr. Asya Mitchell PLT 248 103/ul Normal 150-450 [facility] Comment on above: Performed By: #### C BC #### [facility] [address] [place] [address] Dr. Asya Mitchell RBC 4.73 106/ul Normal 4.20-5.40 [facility] Comment on above: Performed By: #### C BC #### [facility] [address] [place] [address] Dr. Asya Mitchell WBC 8.4 103/ul Normal 4.0-11.0 [facility] Comment on above: Performed By: #### C BC #### [facility] [address] [place] [address] Dr. Asya Mitchell FERRITINon 04-30-2022 Ferritin [Mass/Vol] 46.0 ng/mL Normal 8.0-252.0 [facility] Comment on above: Performed By: #### F ERR, IRON #### [facility] [address] [place] [address] Dr. Asya Mitchell FREE THYROXINE INDEX T7on FTI 2.31 Normal 1.30-4.50 [facility] Comment on above: Performed By: #### T 7, TSH #### [facility] [address] [place] [address] Dr. Asya Mitchell T3U 30.0 % Normal 30.0-39.0 [facility] Comment on above: Performed By: #### T 7, TSH #### [facility] [address] [place] [address] Dr. Asya Mitchell T4 [Mass/Vol] 7.70 ug/dL Normal 4.80-13.90 [facility] Comment on above: Performed By: #### T 7, TSH #### [facility] [address] [place] [address] Dr. Asya Mitchell IRONon 04-30-2022 Iron [Mass/Vol] 85.0 ug/dL Normal 50.0-170.0 [facility] Comment on above: Performed By: #### F ERR, IRON #### [facility] [address] [place] [address] Dr. Asya Mitchell TSHon 04-30-2022 TSH 1.771 uIU/mL Normal 0.358-3.740 [facility] Comment on above: Performed By: #### F ERR, IRON #### [facility] [address] [place] [address] SINUSES WO CONon 04-19-20 CT SINUSES WO CON EXAMINATION: CT SINUSES WO CON HISTORY: Chronic sinusitis COMPARISON: No relevant comparison available. TECHNIQUE: Axial and Coronal CT images were created without IV contrast. Dose reduction techniques were achieved by using automated exposure control and/or adjustment of mA and/or kV according to patient size and/or use of iterative reconstruction technique. FINDINGS: MAXILLARY SINUSES: Mucosal thickening and mucocele/retention cysts within right maxillary sinus. Patent, but narrowed right ostiomeatal complex due to mucosal thickening. Left sinus is clear. ETHMOID SINUSES: No significant mucosal thickening or fluid. Fovea ethmoidali and lamina papyracea are symmetric and intact. SPHENOID SINUSES: No significant mucosal thickening or fluid. Sphenoethmoidal recesses are patent. No bony dehiscence. FRONTAL SINUSES: No significant mucosal thickening or fluid. Frontal recesses are patent. NASAL FOSSA: 4 mm rightward deviation of the nasal septum in addition to a rightward projecting nasal spur. No curtis bullosa or paradoxical turbinates are identified. OTHER: Negative. Limited views of the skull base and orbits are unremarkable. IMPRESSION: 1. Right maxillary chronic sinusitis with moderate narrowing of the right ostiomeatal complex due to mucosal thickening. 2. Remainder of the paranasal sinuses are clear. Electronically authenticated by: BETH ROACH Date: 2022-04-19 16:19 Normal [facility] MAMM SCREEN 3D EUGENIE CADon 01-18-2022 MG MAMM SCREEN 3D EUGENIE CAD Patient: CARLY CESAR Exam Date: 01/18/2022 : 1970 Gender:F Ordering : DR. CONSUELO BRITO Admission #: [id number] Family : DR CRISTIAN MUÑOZ . Order #: [id number] CLICK HERE TO VIEW EXAM RADIOLOGY REPORT PROCEDURE: MAMMOGRAM SCREENING 3D BILATERAL CAD COMPARISON: MG MAMM SCREEN EUGENIE W CAD, 01/17/2020. MG MAMM SCREEN 3D EUGENIE CAD, 01/17/2021. INDICATIONS: Screening mammography Calculator Name NCI Breast Cancer Risk Assessment Tool 5 Year Breast Cancer Risk 0.80% Lifetime Breast Cancer Risk 7.00% Personal Breast Cancer No Personal Ovarian Cancer No Treatments None Family Cancers Aunt-maternal with breast cancer at age 60. LOCATION: [facility] BREAST COMPOSITION: Heterogeneously dense,which may obscure small masses. FINDINGS: DIAGNOSTIC CATEGORY 1--NEGATIVE. NO CHANGE FROM COMPARISON ASSESSMENT. Scattered benign-appearing calcifications are present. Scattered benign-appearing lymph nodes are present. RIGHT BREAST: No significant suspicious finding. LEFT BREAST: No significant suspicious finding. RECOMMENDATIONS: ROUTINE MAMMOGRAM AND CLINICAL EVALUATION IN 12 MONTHS. PLEASE NOTE: A NORMAL MAMMOGRAM DOES NOT EXCLUDE THE POSSIBILITY OF BREAST CANCER. A CLINICALLY SUSPICIOUS PALPABLE LUMP SHOULD BE BIOPSIED. Dictated by: Jada Prieto MD on 01/18/2022 at 08:46 Approved by: Jada Prieto MD on 01/18/2022 at 08:59 Normal [facility] Covid-19 PCR (CVDTB)on SARS-CoV-2 (COVID-19) RNA JAMARCUS+probe Ql (Unsp spec) Not detected Normal NOT DETECTED [facility] Comment on above: Result Comment: This test is not yet approved or cleared by the [place] FDA. When there are no FDA-approved or cleared tests available, and other criteria are met, FDA can make tests available under an emergency access mechanism called an Emergency Use Authorization (EUA). The EUA for this test is supported by the [employer] Instructor of Health and Human Service's (HHS's) declaration that circumstances exist to justify the emergency use of in vitro diagnostics for the detection and/or diagnosis of the virus that causes COVID-19. This EUA will remain in effect (meaning this test can be used) for the duration of the COVID-19 declaration justifying emergency of IVDs, unless it is terminated or revoked by FDA (after which the test may no longer be used). When diagnostic testing is negative, the possibility of a false negative should be considered in the context of a patient's recent exposures and the presence of clinical signs and symptoms consistent with SARS-CoV-2. Performed By: #### [facility] #### [facility] [address] [address] [address] Asya Mitchell XR foot RT min 3V*on 022 XR foot RT min 3V* [facility] [employer] Other XR foot RT min 3V* [facility] [employer] Other XR foot RT min 3V* [address] [place] [address] [employer] Other XR foot RT min 3V* [place] [address] [employer] Other XR foot RT min 3V* XRay [place] [employer] Other XR foot RT min 3V* Signed [employer] Other XR foot RT min 3V* Patient: Carly Cesar MR#: [id number] [employer] Other XR foot RT min 3V* 351 [employer] Other XR foot RT min 3V* : 1970 Acct:[id number] [employer] Other XR foot RT min 3V* Age/Sex: 51 / F ADM Date: 12/15/21 [employer] Other XR foot RT min 3V* Loc: XDUCLY Room: Type: [facility] [employer] Other XR foot RT min 3V* Attending Dr: Bernarda WERNER [employer] Other XR foot RT min 3V* Copies to: DEBBI To [employer] Other XR foot RT min 3V* Ordering Provider: DEBBI To [employer] Other XR foot RT min 3V* Date of Service: 12/15/21 [employer] Other XR foot RT min 3V* XR/XR foot RT min 3V*: Toe pain, right [employer] Other XR foot RT min 3V* 3 viewsRIGHT foot plain film [employer] Other XR foot RT min 3V* COMPARISON:None N [employer] Other XR foot RT min 3V* HISTORY:RIGHT 4th to e injury. [employer] Other XR foot RT min 3V* No fracture, dislocation or focal soft tissue abnormality seen. [employer] Other XR foot RT min 3V* XR/XR foot RT min 3V* [employer] Other XR foot RT min 3V* IMPRESSION:No acute findings [employer] Other XR foot RT min 3V* Impression dictated by: Brijesh Rouse M.D.12/15/2021 9:44 AM [employer] Other XR foot RT min 3V* Dictation Location: [facility] [place] [employer] Other XR foot RT min 3V* Transcribed By: PWS 12/15/21 0944 [employer] Other XR foot RT min 3V* Dictated By: Brijesh Rouse DO 12/15/21 0943 [employer] Other XR foot RT min 3V* Signed By: [employer] Other XR foot RT min 3V* 12/15/21 0944 [facility] [employer] Other XR wrist RT min 3V*on 2021 XR wrist RT min 3V* [facility] [employer] Other XR wrist RT min 3V* [facility] [employer] Other XR wrist RT min 3V* [address] [place] [address] [employer] Other XR wrist RT min 3V* [place] [address] [place] [employer] Other XR wrist RT min 3V* XRay Report [facility] [employer] Other XR wrist RT min 3V* Signed [employer] Other XR wrist RT min 3V* Patient: Carly Cesar MR#: [id number] [facility] [employer] Other XR wrist RT min 3V* [address] [employer] Other XR wrist RT min 3V* : 1970 Acct:[id number] [employer] Other XR wrist RT min 3V* Age/Sex: 51 / F ADM Date: 08/10/21 [employer] Other XR wrist RT min 3V* Loc: XDUCLY Room: Type: [facility] [employer] Other XR wrist RT min 3V* Attending Dr: Mila Akers NP [employer] Other XR wrist RT min 3V* Ordering Provider: Mila Akers NP [employer] Other XR wrist RT min 3V* Date of Service: 08/10/21 [employer] Other XR wrist RT min 3V* XR/XR wrist RT min 3V*: Right wrist pain [employer] Other XR wrist RT min 3V* Copies to: Mila Akers NP [employer] Other XR wrist RT min 3V* XR wrist RT min 3V* 08/10/2021 9:29 AM [employer] Other XR wrist RT min 3V* SIGNS AND SYMPTOMS: Right wrist pain for one week. Pain over the radial aspect of the wrist with [employer] Other XR wrist RT min 3V* numbness and tinglin g into fingers. [employer] Other XR wrist RT min 3V* PROTOCOL: Frontal, lateral, and oblique radiographs of the right wrist [employer] Other XR wrist RT min 3V* COMPARISON: None [employer] Other XR wrist RT min 3V* FINDINGS: [employer] Other XR wrist RT min 3V* The bones are in anatomic alignment. The joint spaces are preserved. There is no evidence of [employer] Other XR wrist RT min 3V* fracture or dislocation. No soft tissue swelling. [employer] Other XR wrist RT min 3V* XR/XR wrist RT min 3V* [employer] Other XR wrist RT min 3V* IMPRESSION: [employer] Other XR wrist RT min 3V* No acute bony injury. [employer] Other XR wrist RT min 3V* No significant degenerative change. [employer] Other XR wrist RT min 3V* No soft tissue swelling. [employer] Other XR wrist RT min 3V* Impression dictated by: Tristen La M.D.08/10/2021 9:47 AM [employer] Other XR wrist RT min 3V* Dictation Location: [place] [address] [employer] Other XR wrist RT min 3V* Transcribed By: PWS 08/10/21 0947 [employer] Other XR wrist RT min 3V* Dictated By: Tristen La II, MD 08/10/21 0944 [employer] Other XR wrist RT min 3V* Signed By: [employer] Other XR wrist RT min 3V* 08/10/21 0947 No rt [employer] Other Cytologyon 07-19-2019 Cytology (NOTE) [id number] [employer] [facility] [address] [place] [id number] GYNECOLOGIC CYTOLOGY REPORT Patient Name: CARLY CESAR MR#: [id number] Specimen #[id number] Source: 1: Cervical material, (ThinPrep vial, Imaging-assisted review) Clinical History Z01.419 Routine hospital insurance clerk exam without abnormal findings High risk HPV DNA testing is requested if the diagnosis is abnormal INTERPRETATION Cervical material, (ThinPrep vial, Imaging-assisted review): Specimen Adequacy: Satisfactory for evaluation. - Endocervical/transfor mation zone component present. Descriptive Diagnosis: Negative for intraepithelial lesion or malignancy. Blood Donor Unit Assistant: LAURA Payne(ASCP) Electronically Signed Out azael/07/28/2019 [facility] Comment on above: Performed By: #### P PPVP #### [id number] [place], [place] [id number] [employer] Counter Clerk: Zechariah Williamson MD Vital Signs Date Time Vital Sign Value Performing Clinician Facility 06-17-2024 14:09-0500 Body height 157.5 cm Clint [employer] Work Phone: [facility] 06-17-2024 14:09-0500 Body mass index (BMI) [Ratio] 32.01 kg/m2 Clint [employer] Phone: [facility] 06-17-2024 14:09-0500 Body weight 79.38 kg Clint [employer] Phone: [facility] 06-17-2024 12:36-0500 Diastolic blood pressure 84 mm[Hg] Clint [employer] [facility] 06-17-2024 12:36-0500 Heart rate 86 /min Clint [employer] [facility] 06-17-2024 12:36-0500 Mean blood pressure 100 mm[Hg] Clint [employer] [facility] 06-17-2024 12:36-0500 Systolic blood pressure 133 mm[Hg] Clint [employer] [facility] 06-17-2024 12:35-0500 Heart rate 82 /min Clint [employer] [facility] 06-17-2024 12:35-0500 SaO2% (BldA) [Mass fraction] 96 % Clint [employer] [facility] 06-17-2024 12:34-0500 Respiratory rate 18 /min Clint [employer] [facility] 06-17-2024 12:34-0500 Diastolic blood pressure 84 mm[Hg] Clint [employer] [facility] 06-17-2024 12:34-0500 Mean blood pressure 97 mm[Hg] Clint [employer] [facility] 06-17-2024 12:34-0500 Systolic blood pressure 125 mm[Hg] Clint [employer] [facility] 04-15-2024 08:49-0500 Body height 157.5 cm Clint [employer] DO Work Phone: [facility] 04-15-2024 08:49-0500 Body mass index (BMI) [Ratio] 32.01 kg/m2 Clint Boogie DO Work Phone: [facility] 04-15-2024 08:49-0500 Body weight 79.38 kg Clint Boogie DO Work Phone: [facility] 03-12-2024 10:17-0400 Body height 158.5 cm MD Cristian Muñoz Work Phone: [facility] 03-12-2024 10:17-0400 Body mass index (BMI) [Ratio] 33.3 kg/m2 MD Cristian Muñoz Work Phone: [facility] 03-12-2024 10:17-0400 Body weight 83.65 kg MD Cristian Muñoz Work Phone: [facility] 03-12-2024 10:17-0400 Diastolic blood pressure 76 mm[Hg] MD Cristian Muñoz Work Phone: [facility] 03-12-2024 10:17-0400 Heart rate 79 /min MD Cristian Muñoz Work Phone: [facility] 03-12-2024 10:17-0400 Respiratory rate 18 /min MD Cristian Muñoz Work Phone: [facility] 03-12-2024 10:17-0400 SaO2% (BldA) [Mass fraction] 99 % MD Cristian Muñoz Work Phone: [facility] 03-12-2024 10:17-0400 Systolic blood pressure 120 mm[Hg] MD Cristian Muñoz Work Phone: [facility] 01-19-2024 10:44-0400 Body height 158.75 cm PHYSICIAN NO [facility] 01-19-2024 10:44-0400 Body mass index (BMI) [Ratio] 33.6 kg/m2 PHYSICIAN NO [facility] 01-19-2024 10:44-0400 Body weight 84.85 kg PHYSICIAN NO [facility] 01-19-2024 10:44-0400 Diastolic blood pressure 67 mm[Hg] PHYSICIAN NO [facility] 01-19-2024 10:44-0400 Heart rate 96 /min PHYSICIAN NO [facility] 01-19-2024 10:44-0400 Respiratory rate 18 /min PHYSICIAN NO [facility] 01-19-2024 10:44-0400 SaO2% (BldA) [Mass fraction] 97 % PHYSICIAN NO [facility] 01-19-2024 10:44-0400 Systolic blood pressure 119 mm[Hg] PHYSICIAN NO [facility] 12-05-2023 10:20-0400 Diastolic blood pressure 57 mm[Hg] MD Cristian Muñoz Work Phone: [facility] 12-05-2023 10:20-0400 Heart rate 75 /min MD Cristian Muñoz Work Phone: [facility] 12-05-2023 10:20-0400 Respiratory rate 14 /min MD Cristian Muñoz Work Phone: [facility] 12-05-2023 10:20-0400 SaO2% (BldA) [Mass fraction] 91 % MD Cristian Muñoz Work Phone: [facility] 12-05-2023 10:20-0400 Systolic blood pressure 97 mm[Hg] MD Cristian Kennedy Phone: [facility] 12-05-2023 09:30-0400 Body temperature 98 [degF] MD Cristian Muñoz Work Phone: [facility] 12-05-2023 09:07-0400 Inhaled oxygen flow rate 8 L/min MD Cristian Muñoz Work Phone: [facility] 12-05-2023 07:10-0400 Body height 158.75 cm MD Cristian Muñoz Work Phone: [facility] 12-05-2023 07:10-0400 Body mass index (BMI) [Ratio] 35.6 kg/m2 MD Cristian Muñoz Work Phone: [facility] 12-05-2023 07:10-0400 Body weight 90 kg MD Cristian Muñoz Work Phone: [facility] 11-25-2023 10:59-0400 Body height 156.21 cm MD Cristian Muñoz Work Phone: [facility] 11-25-2023 10:59-0400 Body mass index (BMI) [Ratio] 37.5 kg/m2 MD Cristian Muñoz Work Phone: [facility] 11-25-2023 10:59-0400 Body weight 91.71 kg MD Cristian Muñoz Work Phone: [facility] 11-24-2023 10:18-0400 Body height 156.21 cm MD Cristian Muñoz Work Phone: [facility] 11-24-2023 10:18-0400 Body mass index (BMI) [Ratio] 37.5 kg/m2 MD Cristian Muñoz Work Phone: [facility] 11-24-2023 10:18-0400 Body weight 91.71 kg MD Cristian Muñoz Work Phone: [facility] 11-24-2023 10:18-0400 Diastolic blood pressure 70 mm[Hg] MD Cristian Muñoz Work Phone: [facility] 11-24-2023 10:18-0400 Heart rate 85 /min MD Cristian Muñoz Work Phone: [facility] 11-24-2023 10:18-0400 Respiratory rate 18 /min MD Cristian Muñoz Work Phone: [facility] 11-24-2023 10:18-0400 SaO2% (BldA) [Mass fraction] 96 % MD Cristian Muñoz Work Phone: [facility] 11-24-2023 10:18-0400 Systolic blood pressure 107 mm[Hg] MD Cristian Muñoz Work Phone: [facility] 10-18-2023 14:03-0400 Body height 156.21 cm MD Cristian Muñoz Work Phone: [facility] 10-18-2023 14:03-0400 Body mass index (BMI) [Ratio] 37.9 kg/m2 MD Cristian Muñoz Work Phone: [facility] 10-18-2023 14:03-0400 Body temperature 98 [degF] MD Cristian Muñoz Work Phone: [facility] 10-18-2023 14:03-0400 Body weight 92.58 kg MD Cristian Muñoz Work Phone: [facility] 10-18-2023 14:03-0400 Diastolic blood pressure 66 mm[Hg] MD Cristian Muñoz Work Phone: [facility] 10-18-2023 14:03-0400 Heart rate 94 /min MD Cristian Muñoz Work Phone: [facility] 10-18-2023 14:03-0400 Respiratory rate 18 /min MD Cristian Muñoz Work Phone: [facility] 10-18-2023 14:03-0400 SaO2% (BldA) [Mass fraction] 95 % MD Cristian Muñoz Work Phone: [facility] 10-18-2023 14:03-0400 Systolic blood pressure 112 mm[Hg] MD Cristian Muñoz Work Phone: [facility] 09-29-2023 08:25-0400 Body height 156.21 cm MD Cristian Muñoz Work Phone: [facility] 09-29-2023 08:25-0400 Body mass index (BMI) [Ratio] 37.3 kg/m2 MD Cristian Muñoz Work Phone: [facility] 09-29-2023 08:25-0400 Body weight 91.25 kg MD Cristian Muñoz Work Phone: [facility] 09-29-2023 08:25-0400 Diastolic blood pressure 72 mm[Hg] MD Cristian Muñoz Work Phone: [facility] 09-29-2023 08:25-0400 Heart rate 81 /min MD Cristian Muñoz Work Phone: [facility] 09-29-2023 08:25-0400 Respiratory rate 18 /min MD Cristian Muñoz Work Phone: [facility] 09-29-2023 08:25-0400 SaO2% (BldA) [Mass fraction] 96 % MD Cristian Muñoz Work Phone: [facility] 09-29-2023 08:25-0400 Systolic blood pressure 115 mm[Hg] MD Cristian Muñoz Work Phone: [facility] 07-31-2023 08:17-0500 Body height 156.21 cm MD Cristian Muñoz Work Phone: [facility] 07-31-2023 08:17-0500 Body mass index (BMI) [Ratio] 38.7 kg/m2 MD Cristian Muñoz Work Phone: [facility] 07-31-2023 08:17-0500 Body weight 94.43 kg MD Cristian Muñoz Work Phone: [facility] 07-31-2023 08:17-0500 Diastolic blood pressure 78 mm[Hg] MD Cristian Muñoz Work Phone: [facility] 07-31-2023 08:17-0500 Heart rate 81 /min MD Cristian Muñoz Work Phone: [facility] 07-31-2023 08:17-0500 Respiratory rate 18 /min MD Cristian Muñoz Work Phone: [facility] 07-31-2023 08:17-0500 SaO2% (BldA) [Mass fraction] 97 % MD Cristian Muñoz Work Phone: [facility] 07-31-2023 08:17-0500 Systolic blood pressure 128 mm[Hg] MD Cristian Muñoz Work Phone: [facility] 05-21-2023 08:30-0500 Body height 156.21 cm [email or web address] [email or web address] Other [employer] Other 05-21-2023 08:30-0500 Body mass index (BMI) [Ratio] 38.66 kg/m2 Validas Other [employer] Other 05-21-2023 08:30-0500 Body weight 94.35 kg Validas Other [employer] Other 05-21-2023 08:30-0500 Diastolic blood pressure 71 mm[Hg] [employer] Other [employer] Other 05-21-2023 08:30-0500 Respiratory rate 16 /min [employer] Other [employer] Other 05-21-2023 08:30-0500 SaO2% (BldA) [Mass fraction] 98 % [employer] Other [employer] Other 05-21-2023 08:30-0500 Systolic blood pressure 122 mm[Hg] [employer] Other [employer] Other 03-19-2023 08:30-0400 Body height 156.21 cm Mitchel Baeza Other [employer] Other 03-19-2023 08:30-0400 Body mass index (BMI) [Ratio] 38.59 kg/m2 Mitchel Baeza Other [employer] Other 03-19-2023 08:30-0400 Body weight 94.17 kg [email or web address] [email or web address] Other [employer] Other 03-19-2023 08:30-0400 Diastolic blood pressure 75 mm[Hg] [email or web address] [email or web address] Other [employer] Other 03-19-2023 08:30-0400 Respiratory rate 16 /min Mitchel Baeza Other [employer] Other 03-19-2023 08:30-0400 SaO2% (BldA) [Mass fraction] 97 % Mitchel Baeza Other [employer] Other 03-19-2023 08:30-0400 Systolic blood pressure 121 mm[Hg] Mitchel Baeza Other [employer] Other 02-05-2023 11:15-0400 Body height 156.21 cm Megan Coats Other [employer] Other 02-03-2023 08:30-0400 Body height 156.21 cm Mitchel Baeza Other [employer] Other 02-03-2023 08:30-0400 Body mass index (BMI) [Ratio] 39.5 kg/m2 [email or web address] [email or web address] Other [employer] Other 02-03-2023 08:30-0400 Body weight 96.39 kg Mitchel Baeza Other [employer] Other 02-03-2023 08:30-0400 Diastolic blood pressure 80 mm[Hg] Mitchel Baeza Other [employer] Other 02-03-2023 08:30-0400 Respiratory rate 18 /min Mitchel Baeza Other [employer] Other 02-03-2023 08:30-0400 SaO2% (BldA) [Mass fraction] 96 % Mitchel Baeza Other [employer] Other 02-03-2023 08:30-0400 Systolic blood pressure 123 mm[Hg] Mitchel Baeza Other [employer] Other 01-06-2023 10:15-0400 Body height 156.21 cm Megan Coats Other [employer] Other 01-02-2023 08:30-0400 Body height 156.21 cm Mitchel Baeza Other [employer] Other 01-02-2023 08:30-0400 Body mass index (BMI) [Ratio] 39.35 kg/m2 Mitchel Baeza Other [employer] Other 01-02-2023 08:30-0400 Body weight 96.03 kg Mitchel Baeza Other [employer] Other 01-02-2023 08:30-0400 Diastolic blood pressure 71 mm[Hg] Mitchel Baeza Other [employer] Other 01-02-2023 08:30-0400 Respiratory rate 16 /min Mitchel Baeza Other [employer] Other 01-02-2023 08:30-0400 SaO2% (BldA) [Mass fraction] 97 % Mitchel Baeza Other [employer] Other 01-02-2023 08:30-0400 Systolic blood pressure 125 mm[Hg] Mitchel Baeza Other [employer] Other 12-15-2021 10:00-0400 Body height 157.48 cm Bernarda Buimond Other [employer] Other 12-15-2021 10:00-0400 Body mass index (BMI) [Ratio] 38.95 kg/m2 Bernarda Elizabet Other [employer] Other 12-15-2021 10:00-0400 Body temperature 97.1 [degF] Bernarda Elizabet Other [employer] Other 12-15-2021 10:00-0400 Body weight 96.62 kg Bernarda Elizabet Other [employer] Other 12-15-2021 10:00-0400 Diastolic blood pressure 76 mm[Hg] Bernarda Elizabet Other [employer] Other 12-15-2021 10:00-0400 Respiratory rate 18 /min Bernarda Elizabet Other [employer] Other 12-15-2021 10:00-0400 SaO2% (BldA) [Mass fraction] 98 % Bernarda Elizabet Other [employer] Other 12-15-2021 10:00-0400 Systolic blood pressure 128 mm[Hg] Bernarda Mcneal Other [employer] Other 08-10-2021 10:00-0500 Body height 157.48 cm Mila Akers Other [employer] Other 08-10-2021 10:00-0500 Body mass index (BMI) [Ratio] 37.31 kg/m2 Mila Akers Other [employer] Other 08-10-2021 10:00-0500 Body temperature 96.7 [degF] Mila Akers Other [employer] Other 08-10-2021 10:00-0500 Body weight 92.53 kg Mila Akers Other [employer] Other 08-10-2021 10:00-0500 Diastolic blood pressure 80 mm[Hg] Mila Akers Other [employer] Other 08-10-2021 10:00-0500 Respiratory rate 18 /min Mila Akers Other [employer] Other 08-10-2021 10:00-0500 SaO2% (BldA) [Mass fraction] 99 % Mila Akers Other [employer] Other 08-10-2021 10:00-0500 Systolic blood pressure 122 mm[Hg] Mila Akers Other [employer] Other Encounters Encounter Date Encounter Type Care Provider Facility Start: 06-17-2024 End: 06-17-2024 ambulatory CLINT BOOGIE Not Available Start: 06-17-2024 End: 06-17-2024 Clinisync Result Encounter Clint Boogie DO Work Phone: [facility] Unsolicited Start: 06-17-2024 End: 06-17-2024 Clinisync Result Encounter Clint Boogie DO Work Phone: [facility] Unsolicited Start: 06-17-2024 End: 06-17-2024 Patient encounter status Clint Boogie DO Work Phone: [facility] Work Phone: Start: 06-17-2024 End: 06-17-2024 ambulatory Clint Boogie Facility:[facility] [place] Start: 06-17-2024 End: 06-17-2024 Patient encounter procedure Clint Boogie DO Work Phone: [facility] Comment on above: Pre-op testing Start: 05-12-2024 End: 05-12-2024 Telephone encounter Margarita Givens RN [facility] Comment on above: wt loss, dizzy, bp m ed hold Start: 04-29-2024 End: 04-29-2024 ambulatory [facility] Start: 04-15-2024 End: 04-15-2024 Patient encounter procedure Clint Boogie DO Work Phone: [facility] Comment on above: Right knee pain, uns pecified chronicity (Primary Dx); Primary osteoarthritis of right knee Start: 04-15-2024 End: 04-15-2024 ambulatory CLINT BOOGIE Not Available Start: 03-12-2024 End: 03-12-2024 ambulatory MD Cristian Muñoz Work Phone: [facility] Work Phone: Start: 03-12-2024 End: 03-12-2024 Patient encounter procedure MD Cristian Muñoz Work Phone: [facility] Work Phone: Start: 03-08-2024 End: 03-08-2024 ambulatory MD Cristian Muñoz Work Phone: [facility] Work Phone: Start: 03-08-2024 End: 03-08-2024 Patient encounter procedure MD Cristian Muñoz Work Phone: [facility] Work Phone: Start: 02-19-2024 End: 02-19-2024 ambulatory PHYSICIAN NO [facility] ed Center Work Phone: Start: 02-19-2024 End: 02-19-2024 Patient encounter procedure PHYSICIAN NO [facility] Work Phone: Start: 02-05-2024 End: 02-05-2024 ambulatory PHYSICIAN NO [facility] Work Phone: Start: 02-05-2024 End: 02-05-2024 Patient encounter procedure PHYSICIAN NO [facility] Work Phone: Start: 02-05-2024 End: 02-05-2024 ambulatory PHYSICIAN NO [facility] Work Phone: Start: 02-05-2024 End: 02-05-2024 Patient encounter procedure PHYSICIAN NO [facility] Start: 01-19-2024 End: 01-19-2024 ambulatory PHYSICIAN NO [facility] Work Phone: Start: 01-19-2024 End: 01-19-2024 Patient encounter procedure PHYSICIAN NO [facility] Work Phone: Start: 01-15-2024 End: 01-15-2024 ambulatory PHYSICIAN NO [facility] Work Phone: Start: 01-15-2024 End: 01-15-2024 Patient encounter procedure PHYSICIAN NO [facility] Work Phone: Start: 2024 End: 2024 ambulatory [facility] Start: 12-26-2023 Non-patient / Non-visit PHYSICIAN NO [facility] Work Phone: Start: 12-26-2023 End: 12-26-2023 ambulatory [facility] Start: 12-18-2023 End: 12-18-2023 ambulatory PHYSICIAN NO [facility] Work Phone: Start: 12-18-2023 End: 12-18-2023 Patient encounter procedure PHYSICIAN NO [facility] Work Phone: Start: 12-05-2023 Non-patient / Non-visit MD Mari Muñoz Work Phone: [facility] Work Phone: Start: 12-05-2023 End: 12-05-2023 Admission to same day surgery center MD Cristian Muñoz Work Phone: [facility] [place] Start: 12-05-2023 End: 12-05-2023 ambulatory MD Cristian Muñoz Work Phone: [facility] Work Phone: Start: 12-01-2023 End: 12-01-2023 Patient encounter procedure MD Cristian Muñoz Work Phone: [facility]-Pre-Surgical Testing Work Phone: Start: 12-01-2023 End: 12-01-2023 ambulatory MD Cristian Muñoz Work Phone: [facility] Work Phone: Start: 11-25-2023 End: 11-25-2023 ambulatory MD Cristian Muñoz Work Phone: [facility] Work Phone: Start: 11-25-2023 End: 11-25-2023 Patient encounter procedure MD Cristian Muñoz Work Phone: [facility] Work Phone: Start: 11-25-2023 End: 11-25-2023 Patient encounter procedure MD Cristian Muñoz Work Phone: [facility] Start: 11-25-2023 End: 11-25-2023 ambulatory MD Cristian Muñoz Work Phone: [facility] Work Phone: Start: 11-24-2023 End: 11-24-2023 ambulatory MD Cristian Muñoz Work Phone: [facility] Work Phone: Start: 11-24-2023 End: 11-24-2023 Patient encounter procedure MD Cristian Muñoz Work Phone: [facility] Work Phone: Start: 11-19-2023 End: 11-19-2023 ambulatory E[facility] Not Available Start: 10-23-2023 Non-patient / Non-visit PHYSICIAN NO FAMILY [facility] Work Phone: Start: 10-18-2023 End: 10-18-2023 ambulatory MD Cristian Muñoz Work Phone: [facility] Work Phone: Start: 10-18-2023 End: 10-18-2023 Departed Referred MD Cristian Muñoz Work Phone: [facility] [place] Work Phone: Start: 10-18-2023 End: 10-18-2023 Patient encounter procedure MD Cristian Muñoz Work Phone: [facility] [place] Work Phone: Start: 09-29-2023 End: 09-29-2023 Patient encounter procedure MD Cristian Muñoz Work Phone: [facility] Work Phone: Start: 09-26-2023 End: 09-26-2023 ambulatory CONCEPCION RUFFIN [facility] Start: 09-23-2023 End: 09-23-2023 ambulatory CRISTIAN MUÑOZ [facility] Start: 09-08-2023 End: 10-07-2023 ambulatory MD Cristian Muñoz Work Phone: [facility] Work Phone: Start: 09-08-2023 End: 10-07-2023 Patient encounter procedure MD Cristian Muñoz Work Phone: [facility]-Self Pay Exercise Program Start: 08-01-2023 Telephone encounter Pall[facility] Start: 07-31-2023 End: 07-31-2023 Patient encounter procedure MD Cristian Muñoz Work Phone: [facility] Work Phone: Start: 07-14-2023 Bamboo flowsheet Fiona wells GUEST RELATIONS OFFICER Work Phone: [facility] Start: 07-14-2023 Bamboo flowsheet Fiona Kaurin g GUEST RELATIONS OFFICER Work Phone: [facility] Start: 07-14-2023 End: 07-14-2023 Office outpatient new 30 minutes Finoa Winn GUEST RELATIONS OFFICER Work Phone: [facility] Comment on above: Right shoulder pain, unspecified chronicity (Primary Dx); Impingement of right shoulder Start: 07-14-2023 End: 07-14-2023 ambulatory FIONA WINN Not Available Start: 06-17-2023 Refill Paulette Islas cki SIGN WRITER LETTERER OR PAINTER-REVIT DRAFTER Work Phone: [facility] Comment on above: Med Refill Start: 06-05-2023 amb[address]ELA GARCIA [facility] Start: 05-21-2023 Follow-up encounter Mitchel Rowe [facility] Start: 05-21-2023 Telephone encounter Mitchel Rowe [facility] Start: 05-21-2023 End: 05-21-2023 ambulatory Mitchel Baeza [facility] Other Start: 03-19-2023 Registered Recurring MD Arlene Muñoz Work Phone: [facility]-Weight Management Work Phone: Start: 03-19-2023 End: 03-19-2023 ambulatory Mitchel Baeza Other [employer] Other Start: 03-19-2023 Follow-up encounter Mitchel Rowe [facility] Start: 03-09-2023 End: 03-09-2023 ambulatory MD Cristian Muñoz Work Phone: [facility] Work Phone: Start: 03-09-2023 End: 03-09-2023 Patient encounter procedure MD Cristian Muñoz Work Phone: [facility]-Self Pay Exercise Program Start: 03-03-2023 End: 03-03-2023 ambulatory Mitchel Baeza Other [employer] Other Start: 03-03-2023 Telephone encounter Mitchel Baeza Jae rod[facility] Start: 02-28-2023 ambulatory MARISELA Brown [facility] Start: 02-05-2023 End: 02-05-2023 ambulatory Megan Coats Other [employer] Other Start: 02-05-2023 IBT FOR OBESITY GROU P 2-10 30M Megan Brauliot [facility] Start: 02-03-2023 End: 02-03-2023 ambulatory Mitchel Baeza Other [employer] Other Start: 02-03-2023 Follow-up encounter Mitchel Baeza Jae espitia [facility] Start: 01-31-2023 ambulatory MARISELA Brown [facility] Start: 01-14-2023 End: 01-14-2023 ambulatory Mtichel Baeza Other [employer] Other Start: 01-14-2023 Telephone encounter [facility] Start: 01-06-2023 End: 01-06-2023 ambulatory Megan Coats Other [employer] Other Start: 01-06-2023 IBT FOR OBESITY GROU P 2-10 30M Megan Coats [facility] Start: 01-06-2023 Telephone encounter Megan Rowe [facility] Start: 01-02-2023 End: 01-02-2023 ambulatory Mitchel Baeza Other [employer] Other Start: 01-02-2023 Nutrition therapy Mitchel Baeza [facility] Start: 12-09-2022 End: 12-10-2022 ambulatory [facility] Start: 10-02-[address] [facility]ISELA [facility] ity[facility] Start: 06-25-2022 End: 06-26-[address] CRISTIAN MUÑOZ . Facility:[facility] Start: 06-19-2022 End: 06-20-[address] CRISTIAN MUÑOZ . Facility:[facility] Start: 04-30-2022 End: 05-01-[address] CRISTIAN MUÑOZ . Facility:[facility] Start: 04-19-2022 End: 04-20-[address] CRISTIAN MUÑOZ . Facility:[facility] Start: 02-12-2022 End: 02-13-[address] CRISTIAN MUÑOZ . Facility:[facility] Start: 01-18-2022 End: 01-19-[address] DOCTOR RIVERA Facility:[facility] Start: 01-07-2022 End: 01-07-[address] CRISTIAN MUÑOZ . Facility:[facility] Start: 12-15-2021 End: 12-15-2021 ambulatory Bernarda Mcneal Other [employer] Other Start: 12-15-2021 Office outpatient vi sit 15 minutes Bernarda Mcneal [facility] [place] Start: 08-10-2021 End: 08-10-2021 ambulatory Mila Akers Other [employer] Other Start: 08-10-2021 Office outpatient vi sit 15 minutes Milaalan Akers [facility] [place] Start: 07-19-2019 End: 07-20-2019 Patient encounter procedure SARAH Rosa [facility] Start: 07-19-2019 End: 07-19-2019 Subsequent hospital visit by physician Cristian Muñoz [facility] Comment on above: Screening mammogram, encounter for; Well female exam with routine gynecological exam Procedures Date Procedure Procedure Detail Performing Clinician Start: 06-17-2024 UA WITH CULT RFLX Clint Boogie DO Work Phone: Start: 04-15-2024 Radiologic examination knee 3 views Clint Boogie DO Work Phone: Start: 02-05-2024 X-ray of right knee PHYSICIAN NO FAMILY Start: 12-05-2023 Arthroscopy of knee MD Cristian Muñoz Work Phone: Start: 12-05-2023 Arthroscopy of knee Clint Boogie Start: 11-25-2023 X-ray of left knee MD Cristian Muñoz Work Phone: Start: 11-25-2023 X-ray of right knee MD Cristian Muñoz Work Phone: Start: 10-18-2023 Urine culture MD Cristian Muñoz Work Phone: Start: 09-26-2023 Follow-up visit Follow-up CONCEPCION RUFFIN Start: 07-14-2023 Arthrocentesis aspir&/inj major jt/bursa w/o us Fiona Winn NP Work Phone: Start: 12-27-2021 Microscopic observation [Identifier] in Cervix by Cyto stain Paulette Sommer SIGN WRITER LETTERER OR PAINTER-REVIT DRAFTER Work Phone: Start: 05-16-2021 Colonoscopy Fiona Winn NP Work Phone: Start: 05-16-2021 Colonoscopy Clint Boogie Start: 05-16-2021 Esophagogastroduodenoscopy Clint Boogie Start: 07-19-2019 Screen pap by shanika MEDRANO Start: 07-19-2019 Microscopic observation [Identifier] in Cervix by Cyto stain Fiona Winn NP Work Phone: Bone spur of right shoulder Clint Boogie Lipoma (disorder) Clint Theo mcmahon Comment on above: arm Loop electrosurgical excision procedure Clint Boogie Plan of Treatment Date Care Activity Detail Author Start: 12-22-2033 DTaP,Tdap and Td Vaccines (2 - Td or Tdap) DTaP,Tdap and Td Vaccines (2 - Td or Tdap) [facility] Start: 05-16-2031 Screening for malign ant neoplasm of colon [facility] Start: 01-12-2025 Adult BMI Screening Adult BMI Screen ing [facility] Start: 01-12-2025 Tobacco Screening Tobacco Screening [facility] Start: 12-27-2024 Screening for malign ant neoplasm of cervix Pap Smear [facility] Start: 06-24-2024 End: 06-24-2024 ambulatory 06/24/2024 9:00 AM EST Evaluation [facility] [address] [facility] [address] [place] [address] Jada Cunha, PT [facility] Start: 06-17-2024 End: 06-17-2024 Patient encounter procedure 06/17/2024 2:00 PM EST Office Visit [facility] [address] [place] [facility] [place] [address] Clint Boogie DO [address] [place] [address] [facility] Start: 06-17-2024 End: 06-17-2025 Urinalysis complete panel - Urine Urinalysis with reflex microscopic Lab Routine Pre-op testing Expected: 06/17/2024 (Approximate), Expires: 06/17/2025 [facility] Work Phone: Comment on above: Expected: 06/17/2024 (Approximate), Expires: 06/17/2025 Start: 02-08-2024 COVID-19 Vaccine ( season) COVID-19 Vaccine ( season) [facility] Start: 02-05-2024 X-ray of right knee XR knee RT 3V - NOT FOR ER USE [facility] Start: 02-05-2024 XR Knee - right 3 Views [facility] Start: 2024 End: 2024 Patient encounter procedure 2024 9:00 AM EDT Office Visit [facility] [address] [place] [address] Bobbi Shelton MD [address] [place], [place] [id number] [facility] Start: 01-11-2024 Adult BMI Screening Adult BMI Screen ing [facility] Start: 01-11-2024 Tobacco Screening Tobacco Screening [facility] Start: 12-05-2023 [facility] Start: 12-05-2023 [facility] Start: 11-25-2023 X-ray of left knee XR knee LT 2V [facility] Start: 11-25-2023 X-ray of right knee XR knee RT 4V* F [facility] Start: 11-25-2023 XR Knee - left 2 Views [facility] Start: 11-25-2023 XR Knee - right 4 Views [facility] Start: 10-18-2023 Bacteria identified in Urine by Culture [facility] Start: 08-04-2023 End: 08-04-2023 Patient encounter procedure 08/04/2023 8:15 AM EST Office Visit [facility] [address] [place] [address] Maxi Badillo MD [address] [place] [address] [facility] Start: 07-28-2023 End: 07-28-2023 Patient encounter procedure 07/28/2023 8:00 AM EST Office Visit [facility] [address] [place] [address] Fiona Winn, GUEST RELATIONS OFFICER [address] [place] [address] [facility] Start: 07-14-2023 End: 07-14-2023 Patient encounter procedure 07/14/2023 8:30 AM EST Office Visit [facility] [address] [place] [address] Fiona Winn, GUEST RELATIONS OFFICER [address] [place] [address] Right shoulder pain, unspecified chronicity (Primary Dx) [facility] Comment on above: Right shoulder pain, unspecified chronicity (Primary Dx) Start: 02-07-2023 COVID-19 Vaccine ( season) COVID-19 Vaccine ( season) [facility] Start: 02-07-2023 Influenza vaccination [facility] Start: 07-19-2022 Screening for malign ant neoplasm of cervix [facility] Start: 2021 Shingles Vaccine (1 of 2) Shingles Vaccine (1 of 2) [employer] Work Phone: Start: 02-07-2019 Influenza vaccination Flu vaccine (# 1) [employer] Phone: Start: 2011 Diabetes screen Diabetes screen [employer] Work Phone: Start: 2011 Lipid screen Lipid screen [employer] Work Phone: Start: 2011 Screening for malign ant neoplasm of breast Mammogram [facility] Start: 2001 Screening for malign ant neoplasm of cervix [facility] Start: 01-14-1992 Cervical cancer screen Cervical canc er screen [facility] [employer] Phone: Start: 01-14-1992 Screening for malign ant neoplasm of cervix Pap Smear [facility] Start: 1990 DTaP,Tdap and Td Vaccines (1 - Tdap) DTaP,Tdap and Td Vaccines (1 - Tdap) [facility] Start: 1989 Adult BMI Follow Up Plan Adult BMI Follow Up Plan [facility] Start: 1986 HIV screen HIV screen [facility] Work Phone: Start: 1983 Depression Screening Depression Scre ening [facility] Start: 1982 DTaP/Tdap/Td vaccine (1 - Tdap) DTaP/Tdap/Td vaccine (1 - Tdap) [facility] [facility] [employer] Phone: Start: 1970 Screening for malign ant neoplasm of colon [facility] End: 07-19-2019 Cytopathology procedure, preparation of smear, genital source PAP SMEAR Lab Routine Screening mammogram, encounter for Well female exam with routine gynecological exam 1 Occurrences starting 07/19/2019 until 07/19/2019 [employer] Work Phone: Comment on above: 1 Occurrences starti ng 07/19/2019 until 07/19/2019 Patient Education Know your Meds [facility] Work Phone: Immunizations Immunization Date Immunization Notes Care Provider Jeffry gregg 06-19-2022 influenza virus vaccine, unspecified formulation Paulette Sommer SIGN WRITER LETTERER OR PAINTER-REVIT DRAFTER Work Phone: [facility] 11-28-2020 COVID-19 mRNAArtemirmoshe (Pfizer) MD Cristian Muñoz Work Phone: [facility] 11-07-2020 COVID-19 mRNA Comirmoshe (Pfizer) MD Cristian Muñoz Work Phone: [facility] Payers Date Payer Category Payer Self-pay [id number] 12-18-2022 [employer] ( and others) [id number] 12-18-2022 Self-pay [id number] 09-24-2022 [employer] ( and others) [id number] 06-13-2022 [employer] ( and others) [id number] 06-09-2019 [employer] ( and others) [facility] xxxxxxxxx 2019-Present xxxxxxxxx [id number] 06-09-2017 [employer] ( and others) [id number] .[id number] 06-09-2017 () 1.2.840.11 [id number] 06-09-2017 [employer] ( and others) [id number] 1971 Unknown [id number] 2.16.840.1.057699.3.579.2 .173 1971 Unknown [id number] 2.16.840.1.309795.3.579.2 .593 1971 Unknown [id number] 2.16.840.1.790539.3.579.2 .593 1971 Unknown [id number] 2.16.840.1.888192.3.579.2 .593 1971 Unknown [id number] 2.16.840.1.202281.3.579.2 .593 1971 Unknown [id number] 2.16.840.1.532445.3.579.2 .593 1971 Unknown [id number] 2.16.840.1.149448.3.579.2 .593 1971 Unknown [id number] 2.16.840.1.895518.3.579.2 .593 1971 Unknown [id number] 2.16.840.1.364972.3.579.2 .593 1971 Unknown [id number] 2.16.840.1.013510.3.579.2 .1286 1971 Unknown [id number] 2.16.840.1.928138.3.579.2 .1286 1971 Unknown [id number] 2.16.840.1.249966.3.579.2 .1286 1971 Unknown [id number] 2.16.840.1.864027.3.579.2 .1286 1971 Unknown [id number] 2.16.840.1.519705.3.579.2 .1286 1971 Unknown [id number] 2.16.840.1.171173.3.579.2 .727 1971 Unknown [id number] 2.16.840.1.672489.3.579.2 .1259 1971 Unknown [id number] 2.16.840.1.695220.3.579.2 .1259 1971 Unknown [id number] 2.16.840.1.996189.3.579.2 .1259 1971 Unknown [id number] 2.16840.1.752947.3.579.2 .1259 1971 Unknown [id number] 2.16840.1.470303.3.579.2 .1259 06-09-1958 [facility] ( and others) [id number] Unknown [id number] 2.16840.1.991121.3.579.2 .531 Unknown [id number] 2.16.840.1.512040.3.579.2 .531 Social History Date Type Detail Facility Start: 07-19-2019 End: 04-13-2021 Tobacco [facility] status [facility] Start: 07-19-2019 End: 06-17-2024 Alcohol intake Current drinker of alcohol (finding) [employer] Phone: Start: 07-19-2019 Alcohol Comment social [employer] Phone: Sex Assigned At Not on file [employer] Phone: Start: 01-10-2023 End: 06-17-2024 Sex Assigned At [employer] Other Start: 1970 Sex Assigned At Female [facility] Start: 06-06-2022 End: 07-14-2023 Tobacco use and exposure Smokeless tobacco non-user [facility] Start: 01-10-2023 End: 06-17-2024 History of Social function [facility] Housing Instability Unknown [facility] Start: 02-18-2019 Alcohol Comment rare [facility] [employer] Start: 07-15-2021 Gender identity Identifies as female gender (finding) [facility] Start: 07-15-2021 Sexual orientation Heterosexual (finding) [facility] Start: 07-13-2023 Alcohol Comment 1-2 drinks monthly or less, coffee 2-3 cups per day [facility] Start: 02-09-2019 Sex Female (finding) [facility] Goals Date Patient Goal Desired Activity /State Functional Status Date Assessment Result Facility 06-17-2024 Functional Status No [facility] Clinical Notes 08-10-2021 to 06-17-2024 Clint Boogie, - 06/17/2024 2:00 PM ESTTelephone Encounter - Margarita Givens RN - 05/12/2024 11:23 AM ESTTelephone Encounter - Margarita Givens RN - 05/12/2024 11:23 AM EST Note Date & Type Note Facility 06-17-2024 History of Presen t illness Narrative Images from the original note were not included. @[email or web address]@ Carly Streeter Arsenio is a 54 y.o. female who presents for Follow-up of the Right Knee (H&P Rt [facility] [place] [place] 06/30/24) HPI: History of Present Illness The patient is a 54-year-old female who presents to discuss moving forward with surgery on her right knee. She reports severe pain in her right knee, which has been significantly impacting her daily activities and overall quality of life. She expresses concern about the potential limitations she may face post-surgery, particularly regarding her ability to kneel and squat. Additionally, she mentions experiencing swelling in the affected area and severe aching at night, which disrupts her sleep. Despite these challenges, she continues to engage in physical activities such as walking, although at a slower pace than before. She recalls an incident where she overexerted herself during a walk with her , resulting in increased knee pain. She has a scheduled [place] cruise trip in 11/2024. She has been experiencing recurrent urinary tract infections (UTIs), which she suspects may be related to her perimenopausal status. She felt the onset of another UTI this morning and has started taking medication for it. A urine test was conducted today, and she notes that her urine was orange in color. She has been prescribed Levaquin for a mild sinus infection by her PCP today but has not yet picked it up. She has lost 38 pounds and uses a CPAP machine, although she has not been using it recently. She is scheduled for a new sleep study before her surgery. SUBJECTIVE: MEDICATIONS: Current Outpatient Medications Medication Instructions buPROPion XL (Wellbutrin XL) 150 MG 24 hr tablet Carboxymethylcellulose Sodium (EQ RESTORE PLUS LUBRICANT EYE OP) Administer into affected eye(s) cetirizine (ZyrTEC) 10 MG tablet cholecalciferol (VITAMIN D-[address]) 2,000 Units, Daily RT Coenzyme Q10 (CO Q 10 PO) Take by mouth fenofibrate micronized (Lofibra) 67 MG capsule TAKE 1 TABLET BY MOUTH EVERY DAY IN THE MORNING BEFORE MEALS Ferrous Sulfate (IRON PO) 1 tablet, Daily RT FIBER PO Take by mouth Multiple Vitamin (multivitamin) tablet 1 tablet, Daily pramipexole (Mirapex) 1 MG tablet Protonix 40 MG EC tablet Every 24 hours rosuvastatin (Crestor) 20 MG tablet VITAMIN D PO Take by mouth Zepbound 10 MG/0.5ML solution auto-injector INJECT 0.5 ML SUBCUTANEOUSLY EVERY WEEK FOR WEIGHT LOSS ALLERGIES: No Known Allergies SURGICAL HISTORY: Past Surgical History: Procedure Laterality Date CERVICAL BIOPSY W/ LOOP ELECTRODE EXCISION 2006 CLAVICLE SURGERY Right 02/24/[address] Lozada KNEE ARTHROPLASTY MASS EXCISION 10/2014 r/o left neck mass MENISCECTOMY OTHER SURGICAL HISTORY Procedure:excised;Disease:hx fibrolipomas FAMILY HISTORY: Family History Problem Relation Name Age of Onset Heart disease Mother Laura Aviles Other (bleeding ulcer) Mother Laura Aviles Diabetes Mother Laura Aviles Hypertension Mother Laura Aviles Stroke Mother Laura Aviles Heart attack Father Heart disease Father Muscular dystrophy Brother Suicidality Brother Cancer Maternal Grandmother Stroke Paternal Grandmother Cancer Mother's Sister Mary Ellen SOCIAL HISTORY: Social History Tobacco Use Smoking status: Never Smokeless tobacco: Never Vaping Use Vaping status: Never Used Substance Use Topics Alcohol use: Yes Comment: 1-2 drinks monthly or less, coffee 2-3 cups per day Drug use: Never Depression: Not at risk (06/05/2023) Received from [facility], [facility] PHQ-2 Patient Health Questionnaire-2 Score: 0 REVIEW OF SYMPTOMS: Review of Systems The review of systems, history and current medications list are all reviewed today. OBJECTIVE: Visit Vitals Ht 5' 2 Wt 175 lb BMI 32.01 kg/m Smoking Status Never BSA 1.86 m Physical Exam Alert and oriented, no acute distress. Mood and affect are appropriate. RIGHT KNEE Well healed portals. Mild effusion. ROM 0-130. Tenderness is noted over both the lateral and medial joint lines. Negative anterior and posterior drawer. No varus or valgus instability. LEFT KNEE The skin is warm, dry and intact. There is no effusion, no erythema. Full flexion and extension. Good quadriceps bulk and tone. There is no tenderness at the patellofemoral joint, medial or lateral joint line, patellar tendon, femoral condyles or proximal tibia. No cruciate or collateral instability Ortho Exam Results ASSESSMENT AND PLAN: I reviewed the history, physical exam, diagnostic studies, and diagnosis with the patient. Assessment & Plan 1. Advanced degenerative osteoarthrosis, right knee It was explained that squatting would be possible post-surgery, but kneeling might be challenging for some patients. The incision site on the front of the knee could cause varying sensitivity levels. Post-surgical pain is expected to improve over time, enhancing her function and quality of life. She was reassured that the majority of patients who undergo this procedure are satisfied with the outcome. The patient would like to proceed with a right total knee arthroplasty with [employer] robotic arm assistance. The [employer] platform will be utilized. Surgery will be performed as an outpatient. We will utilize tranexamic acid preoperatively and intraoperatively to minimize blood loss. We will enroll the patient in Ortho 360 to assist with perioperative care. We will obtain a CT scan of the affected knee to assist with preoperative planning and intraoperative instrumentation. The CT scan will also allow for better assessment of the arthritic changes including any potential subchondral deficiencies. The patient has significant joint dysfunction causing severe impairment of function associated with severe discomfort to such a degree that relief of symptoms and limitations to function were not amenable to conservative non-surgical measures including rest, activity modification, a home exercise program, icing, NSAIDs, and injections. These methods failed to provide the patient with meaningful or long lasting relief. Based on subjective and objective evidence of anatomic and functional derangements that have imposed severe limitations on the patient in terms of mobility, comfort, and safety as documented in the chart, joint replacement surgery is both medically necessary and reasonable for this patient. I reviewed the risk, benefits, complications, alternatives, and reasonable expectations. These risks include, but are not limited to, the risks of receiving an anesthetic, the risk of infection, the risk of neurovascular injury that could result in permanent disability, the risk of deep vein thrombosis that could result in potentially fatal pulmonary embolism. Any potential complication could require further surgical intervention. The patient acknowledges these risks and electively signed the consent form. At no time were any guarantees implied or stated. We will schedule the procedure at a mutually convenient time. The surgery will be performed under spinal anesthetic with regional nerve block. I am requesting the regional nerve block to assist with intraoperative and postoperative pain control. 2. Recurrent urinary tract infections (UTIs). The patient has been experiencing recurrent UTIs, particularly after sexual activity, despite urinating post-coitus. She is currently taking medication for a suspected UTI that started this morning. A urine test was conducted today, and the results are pending. If the test returns positive, appropriate treatment will be initiated. She was advised to ensure that any UTI is fully resolved before her upcoming knee surgery to reduce the risk of infection. A total of 30 to 39 minutes was spent on this patient encounter which included chart review, check in, nurse triage, history taking, physical examination, diagnostic study review, patient counseling and discussion, entering information into the patient's medical record, and coordinating patient care. Diagnoses and all orders for this visit: Pre-op testing - Urinalysis with reflex microscopic; Future Clint Boogie D.O. Attestation This note was created using voice recognition through [employer] artificial intelligence. documented in this encounter [facility] 05-12-2024 Miscellaneous Notes Patient calling to update us that she was at PCP's today, has been dizzy on and off since giving blood a week ago. She has lost 30lb recently on Zepbound and her home bp checks have been running low 100's to one teens. 107/78, 116/79. She takes her losartan-HCTZ at bedtime and these are morning bp's. At the recommendation of her PCP she is going to hold her bp med for a week and see how she feels and what her pressures are. I instructed her to let us know if they are consistently greater than 130 and we will address with physician. She v/u. Med marked not taking on med list. documented in this encounter [facility] 05-12-2024 Telephone encounter Note Patient calling to update us that she was at PCP's today, has been dizzy on and off since giving blood a week ago. She has lost 30lb recently on Zepbound and her home bp checks have been running low 100's to one teens. 107/78, 116/79. She takes her losartan-HCTZ at bedtime and these are morning bp's. At the recommendation of her PCP she is going to hold her bp med for a week and see how she feels and what her pressures are. I instructed her to let us know if they are consistently greater than 130 and we will address with physician. She v/u. Med marked not taking on med list. [facility] 04-15-2024 History of Presen t illness Narrative Images from the original note were not included. @TUYET@ Carly Cesar is a 54 y.o. female who presents for No chief complaint on file. HPI: History of Present Illness The patient is a 54-year-old female seen as a new patient today for right knee issues. She has had problems with her knee for the past few years. She recalls injuring her knee on a treadmill and has experienced persistent discomfort since then. Despite not being a regular runner, she engaged in run-walks in her late 20s, which often resulted in knee pain. Approximately 2 years ago, she suffered a meniscus tear. She has seen a provider at [facility] and most recently saw Dr. Mookie Ospina at [facility]. She underwent arthroscopic surgery by Dr. Ospina on 12/05/2023, which included a partial medial meniscectomy with removal of loose bodies. The operative report has been personally reviewed. She has had numerous other conservative treatments for the knee both pre and postoperatively. This includes corticosteroid injections, viscosupplementation, bracing, nonsteroidal anti-inflammatories, and physical therapy. She has received various injections, including Zilretta, gel, and cortisone, both before and after her surgery in 11/2023. However, she reports that her knee pain continues to progress. Her last injection was given on 03/08/2024. She experiences difficulty walking up and down stairs due to pain, particularly when descending. On certain days, she can bend her knee without severe pain, but on others, she experiences significant discomfort. Her pain is primarily located medially. She does not observe any swelling in her knee. After a recent visit to the [facility] where she walked and rode a bike, she noticed soreness in her knee the following day. She has undergone aquatic therapy and regular physical therapy. She occasionally feels as if her left knee might give out. She has lost 25 to 30 pounds, which has helped reduce the pressure on her knee. She is accompanied by her . SUBJECTIVE: MEDICATIONS: Current Outpatient Medications Medication Instructions buPROPion XL (Wellbutrin XL) 150 MG 24 hr tablet cetirizine (ZyrTEC) 10 MG tablet cholecalciferol (VITAMIN D-[address]) 2,000 Units, Oral, Daily RT diclofenac (VOLTAREN) 75 mg, Oral, Daily PRN losartan-hydroCHLOROthiazide (Hyzaar) 50-12.5 MG tablet meloxicam (Mobic) 15 MG tablet pramipexole (Mirapex) 1 MG tablet Protonix 40 MG EC tablet Every 24 hours rosuvastatin (Crestor) 20 MG tablet ALLERGIES: No Known Allergies SURGICAL HISTORY: Past Surgical History: Procedure Laterality Date CERVICAL BIOPSY W/ LOOP ELECTRODE EXCISION 2006 CLAVICLE SURGERY Right 02/24/[address] Lozada MASS EXCISION 10/2014 r/o left neck mass OTHER SURGICAL HISTORY Procedure:excised;Disease:hx fibrolipomas FAMILY HISTORY: Family History Problem Relation Name Age of Onset Heart disease Mother Other (bleeding ulcer) Mother Diabetes Mother Hypertension Mother Stroke Mother Heart attack Father Heart disease Father Muscular dystrophy Brother Suicidality Brother Cancer Maternal Grandmother Stroke Paternal Grandmother SOCIAL HISTORY: Social History Tobacco Use Smoking status: Never Smokeless tobacco: Never Substance Use Topics Alcohol use: Yes Comment: 1-2 drinks monthly or less, coffee 2-3 cups per day Drug use: Never Depression: Not at risk (06/05/2023) Received from [facility], [facility] PHQ-2 Patient Health Questionnaire-2 Score: 0 REVIEW OF SYMPTOMS: Review of Systems The review of systems, history and current medications list are all reviewed today. OBJECTIVE: Visit Vitals Smoking Status Never Physical Exam Alert and oriented, no acute distress. Mood and affect are appropriate. Ambulating independently. Gait is nonantalgic. Left knee demonstrates full extension with no effusion. Both knees flex equally to about 130 degrees. Right knee exhibits a small effusion but maintains full extension. Portals are well-healed. Tenderness is noted over both the lateral and medial joint lines. Negative anterior and posterior drawer. No varus or valgus instability. Ortho Exam Results Imaging Three views, bilateral PA weight-bearing, sunrise, lateral of the right knee(s) taken today and saved to the permanent medical record are reviewed. Complete loss of medial joint space at right knee, mild PF arthritis with slight lateral tilting of both patella. Moderate lateral compartment narrowing at right knee as well. ASSESSMENT AND PLAN: I reviewed the history, physical exam, diagnostic studies, and diagnosis with the patient. Assessment & Plan 1. Advanced degenerative osteoarthrosis, right knee I discussed the natural history of degenerative osteoarthrosis and used the knee model as a visual aid during the discussion. I explained the importance of maintaining a healthy weight as well as the benefits of maximizing the strength, stability, and range of motion of the affected joint. Conservative treatments such as injections, bracing, rehabilitation, and medications have not provided significant relief. If the pain continues to impact her quality of life, knee replacement may be considered. This decision is ultimately hers to make. Another scope will not provide any benefit. She is advised to maintain low-impact activities such as using an elliptical or bike, and to continue water exercises. If she decides to proceed with knee replacement, it will be scheduled after the New Year due to her recent injection in February 2024, allowing for a 3-month waiting period to minimize the risk of infection. She is encouraged to consider this option and contact us with any questions or concerns. The patient would like to leave follow up to his/her own discretion. There are no diagnoses linked to this encounter. A total of 45-59 minutes was spent on this patient encounter which included chart review, check in, nurse triage, history taking, physical examination, diagnostic study review, patient counseling and discussion, entering information into the patient's medical record, and coordinating patient care. Clint Boogie D.O. Attestation This note was created using voice recognition through [employer]. documented in this encounter [facility] 01-19-2024 Evaluation note Authored January 19, 2024 11:14am Assessment: Start weight: 187.1lbs. She is down 24.6 lbs. today with a weight of 187.1 lbs. She is down 15.2 lbs. since last visit with on 11/24/2023. Starting Date: 01-02-2023. Zepbound 1. Abnormal weight gain 2. Obesity-she is doing well on Zepbound 7.5 mg with minimal side effects and at this point wants to stay on the 7.5 mg dose. She will continue home exercise as directed by Meaghan, start to work with our runway model and continue to work on good sleep hygiene. The patient will treat with long-term lifestyle changes of improved nutrition, increased exercise and activity, stress reduction, adequate sleep and behavioral modification versus short-term dieting. 3. Mixed hyperlipidemia-treat with decreasing the simple sweets, added sugars, refined starches, and bad/added fats, increasing activity and exercise and continued long-term weight loss. 4. Hypertension-treat with a low-salt diet, decreased processed and restaurant foods, healthy lifestyle changes and achieve long-term weight loss. Monitor outside the office. 5. Arthritis of the knees bilateral but right greater than left. She notes her x-rays do show significant arthritis of her right knee. She is status post recent right arthroscopic knee surgery. Treat with healthy exercise and weight loss. Follow up with me in 6 weeks. New labs needed: Up-to-date. Continue regular lab work with her PCP. [facility] Work Phone: 1(828) 603-356308-12-2024 Evaluation note* Author Sandra Jules [facility] Authored January 19, 2024 11 :14am Assessment: Start weight: 187.1lbs. She is down 24.6 lbs. today with a weight of 187.1 lbs. She is down 15.2 lbs. since last visit with on 11/24/2023. Starting Date: 01-02-2023. Zepbound 1. Abnormal weight gain 2. Obesity-she is doing well on Zepbound 7.5 mg with minimal side effects and at this point wants to stay on the 7.5 mg dose. She will continue home exercise as directed by Meaghan, start to work with our runway model and continue to work on good sleep hygiene. The patient will treat with long-term lifestyle changes of improved nutrition, increased exercise and activity, stress reduction, adequate sleep and behavioral modification versus short-term dieting. 3. Mixed hyperlipidemia-treat with decreasing the simple sweets, added sugars, refined starches, and bad/added fats, increasing activity and exercise and continued long-term weight loss. 4. Hypertension-treat with a low-salt diet, decreased processed and restaurant foods, healthy lifestyle changes and achieve long-term weight loss. Monitor outside the office. 5. Arthritis of the knees bilateral but right greater than left. She notes her x-rays do show significant arthritis of her right knee. She is status post recent right arthroscopic knee surgery. Treat with healthy exercise and weight loss. Follow up with me in 6 weeks. New labs needed: Up-to-date. Continue regular lab work with her PCP. Author Charisma Eid [facility] Authored March 12, 2024 10 :39am Start weight: 211.7lbs. She is down 27.0 lbs. today with a weight of 184.7 lbs. She is down 2.4 lbs. since last visit on 01/19/2024. Starting Date: 01-02-2023. Zepbound 1. Abnormal weight gain 2. Obesity-she is doing well on Zepbound 7.5 mg with minimal side effects and at this point wants to stay on the 7.5 mg dose. She will continue home exercise as directed by Meaghan, start to work with our runway model and continue to work on good sleep hygiene. The patient will treat with long-term lifestyle changes of improved nutrition, increased exercise and activity, stress reduction, adequate sleep and behavioral modification versus short-term dieting. 3. Mixed hyperlipidemia-treat with decreasing the simple sweets, added sugars, refined starches, and bad/added fats, increasing activity and exercise and continued long-term weight loss. 4. Hypertension-treat with a low-salt diet, decreased processed and restaurant foods, healthy lifestyle changes and achieve long-term weight loss. Monitor outside the office. 5. Arthritis of the knees bilateral but right greater than left. She notes her x-rays do show significant arthritis of her right knee. She is status post recent right arthroscopic knee surgery. Treat with healthy exercise and weight loss. Follow up with me in 6 weeks. New labs needed: Up-to-date. Continue regular lab work with her PCP. [facility] Work Phone: 1(490) 142-905506-17-2024 Evaluation note* Author Sandra Jules [facility] Authored January 19, 2024 11 :14am Assessment: Start weight: 187.1lbs. She is down 24.6 lbs. today with a weight of 187.1 lbs. She is down 15.2 lbs. since last visit with on 11/24/2023. Starting Date: 01-02-2023. Zepbound 1. Abnormal weight gain 2. Obesity-she is doing well on Zepbound 7.5 mg with minimal side effects and at this point wants to stay on the 7.5 mg dose. She will continue home exercise as directed by Meaghan, start to work with our runway model and continue to work on good sleep hygiene. The patient will treat with long-term lifestyle changes of improved nutrition, increased exercise and activity, stress reduction, adequate sleep and behavioral modification versus short-term dieting. 3. Mixed hyperlipidemia-treat with decreasing the simple sweets, added sugars, refined starches, and bad/added fats, increasing activity and exercise and continued long-term weight loss. 4. Hypertension-treat with a low-salt diet, decreased processed and restaurant foods, healthy lifestyle changes and achieve long-term weight loss. Monitor outside the office. 5. Arthritis of the knees bilateral but right greater than left. She notes her x-rays do show significant arthritis of her right knee. She is status post recent right arthroscopic knee surgery. Treat with healthy exercise and weight loss. Follow up with me in 6 weeks. New labs needed: Up-to-date. Continue regular lab work with her PCP. [facility] Work Phone: 1(409) 505-592302-23-2024 Miscellaneous Notes* Telephone Encounter - Pallavi Dewitt - 08/01/2023 3:12 PM EST Called patient to remind them to bring their most current copy of their medication list with them to their appt. Patient verbalizes understanding. documented in this encounterDunlap Memorial HospitalRegalamos [id number] Telephone encounter Note* Telephone Encounter - Pallavi Dewitt - 08/01/2023 3:12 PM EST Called patient to remind them to bring their most current copy of their medication list with them to their appt. Patient verbalizes understanding. [facility] [id number] History of Present illness Narrative* Fiona Winn NP - 07/14/2023 8:30 AM ESTAssociated Order(s): L Inj/Asp: R subacromial bursa Post-Procedure Diagnose(s): Impingement of right shoulder Subjective Patient ID: Carly Cesar is a 53 y.o. female. Rt shoulder She is working at [employer], she started this in 2023. Pain x 3 months () NKI. Pain superior and anterior. Pain comes and goes, worst at night. Denies radiation. Denies N/T. Denies cracking/popping. Denies swelling. Occas gets random pains. Denies pain at rest. Pain at worst 10/10 at night. Admits waking at night. Good ROM. Admits meloxicam for her knee, but gets relief with shoulder. Denies ice, heat or creams. She notes she has tried voltaren gel in the past, no relief. Pt is RT handed [place]: RT shoulder distal clavicle resection Dr. Lozada 02/24/19, depo medrol injection 05/31/19 Objective Right Shoulder Exam Range of Motion Active abduction: 180 Muscle Strength Abduction: 4/5 Tests Stephenson test: positive Drop arm: negative Shoulder Musculoskeletal Exam Palpation Right Tenderness: present Anterior shoulder: mild Range of Motion Right Active ROM: pain. Active forward elevation: 180. Shoulder active abduction: 180. Active external rotation at side: 60. Internal rotation: T12. Strength Right Abduction: 4/5. Abduction is affected by pain. Special Tests Right Rotator Cuff Signs Stephenson test: positive Lift-off sign: negative Drop arm test: negative Biceps/radha Signs Speed's test: negative L Inj/Asp: R subacromial bursa on 07/14/2023 9:23 AM Indications: pain Details: 21 G needle, posterior approach Medications: 40 mg methylPREDNISolone acetate 40 MG/ML Outcome: tolerated well, no immediate complications Utilizing aseptic technique with universal precautions . Pt given injection Right Shoulder SA space Procedure, treatment alternatives, risks and benefits explained, specific risks discussed. Consent was given by the patient. Assessment/Plan Encounter Diagnoses: ICD-10-CM 1. Right shoulder pain, unspecified chronicity M25.511 2. Impingement of right shoulder M25.811 Subacormial injection given pt tolerated well, depedning on how she is doing may recommend xrays inf/U, he may do activities as tolerated, f/U In 2-3 weeks s/p injection documented in this encounterSaint John's Aurora Community [id number] [facility]01-09-2024 Miscellaneous Notes* Telephone Encounter - Shirley Flores RN - 06/17/2023 2:17 AM EST Please sign and route. Thank you Pt needs annual appointment please. Letter sent. OZIEL 06/06/22 ABN Lipids 04/07/23 documented in this encounterPark[facility] Telephone encounter Note* Telephone Encounter - Shirley Flores RN - 06/17/2023 2:17 AM EST Please sign and route. Thank you Pt needs annual appointment please. Letter sent. OZIEL 06/06/22 ABN Lipids 04/07/23 [facility] Now [employer] [id number] Note06/05/23 Injection was helpful, pain has returned 01/31/23 Here today in follow up appt., injection provided significant pain relief x 3 months, pain returning 09/26/22 52-year-old female seen the clinic today as a new patient with complaints of chronic right knee pain. She has had this pain for over 6 months now. She denies any locking or catching. She was treated by her primary care provider and has underwent medication treatment as well as corticosteroid injection and the Synvisc 1 injection. The injections provided only short-term pain relief. She has not tried any formal physical therapy. She had an MRI which showed a posterior horn medial meniscal tear as well as moderate grade articular cartilage loss. These films are not available for review today we do have the report. She is accompanied today's visit by her family member. She has no additional complaints. Review of systems denies any locking or catching to her right knee. No erythema or warmth to her right knee No CP or SOB No fever or chills Physical exam General appearance no apparent distress in sitting position HEENT atraumatic Mood and affect appropriate Coordination intact Skin intact Gait ambulates with limp Motor strength lower extremities 5 out of 5 Sensory exam intact to light touch Lungs no dyspnea noted Alert and oriented time person and place Exam of the right knee shows skin to be intact. There is no open wounds or ulcerations noted. There is no erythema or warmth about the right knee joint. She is with full range of motion of the right knee. She has mild tenderness to palpation to the medial joint line. No laxity noted. Neurovascular intact distally. X-rays obtained and reviewed today show medial compartment patella femoral compartment moderate osteoarthritis right knee MRI report shows posterior horn medial meniscal tear with moderate grade articular cartilage loss, actual MRI films are not available for review. Plan Clinical and radiographic findings were discussed with the patient. Obtain approval for right knee Zilretta injection Mobic Follow up once injection approved.[facility]12-13-[facility] Evaluation note* Encounter Date Diagnosis Assessment Notes Treatment Notes Treatment Clinical Notes May, Obesity, Class II, BMI 35-39.9 (ICD-10 - E66.01) Consultation date 01-02-2023, weight (pounds): 211.7 Follow-up date 02-03-2023, weight (pounds): 212.5 Follow-up date 03-19-2023, weight (pounds): 207.6 Follow-up date 05-21-23, weight (pounds): 208 Plan is to take a weight centric approach to patient care in the treatment of obesity and patient's weight related comorbidities.-Discus sed the impact of obesity and excess adiposity on overall health and increased risk of associated health conditions-Discussed treatment options including lifestyle interventions and use of medications as an adjunct to amplify adherence to healthy behavior change-Discussed benefits, risks and side effects of medication. After informed discussion, patient would like to proceedOrders:-Insura nce requires 6 months of lifestyle weight management prior to medication approval, corresponding to date of 07-05-2023 -Patient trialed phentermine several years ago but experienced tachycardia. Patient is not a great candidate for phentermine or Qsymia -Handed paperwork on Zepbound-A1c November 2022, 5.6%-Follow up in clinic in 8 weeksThis note was created with voice recognition software. 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 May, Dietary surveillance and counseling (ICD-10 - Z71.3) Discussed in detail high-protein, high-fiber, low-fat nutrition plan favoring calorie deficit and lean tissue mass preservation.-Lean protein sources at each meal supplemented with nutrient rich, low calorie density carbohydrates-Focus on consuming calories earlier in the day versus later; breakfast and lunch should be largest meals-Evening meal should be high in protein and low in carbohydrate to maximize lipolysis overnight-Aim for a minimum of 30 g of protein per meal with breakfast, lunch and dinner with total daily intake reaching at least 100 g-If needed, supplement with whey protein powder or premade protein drink low in carbohydrate and low in fat-If hungry between meals, consider protein snack low in carbohydrate and low in fat May, Exercise counseling (ICD-10 - Z71.89) Absolute HGS at time of consultation (pounds): 51.8 Absolute HGS at time of follow-up (pounds): 50 Discussed in detail exercise interventions to promote lean tissue mass preservation during calorie restriction.-In addition to regularly scheduled endurance and resistance exercise, perform bouts of resistance exercise prior to meals using body weight, resistance bands or dumbbells/weights-Fol lowing meals, consider aerobic exercise, such as brisk walking, to improve blood sugars and to mitigate hyperinsulinemia -Working with exercise physiology May, Dyslipidemia (ICD-10 - E78.5) Lipid panel November 2022 showing triglycerides 209 On Crestor 20 mg daily Following with cardiology May, Essential hypertension (ICD-10 - I10) CLARI treated with CPAP May, Metabolic syndrome (ICD-10 - E88.81) Insulin resistant May, GERD (gastroesophageal reflux disease) (ICD-10 - K21.9) May, Osteoarthritis (ICD-10 - M19.90) Knee pain is limiting physical activity May, Other 30 minutes was spent reviewing patient specific healthcare information, interviewing, counseling, and communicating with the patient, and documenting clinical information. [employer] Other 10-11-2023 Evaluation note* Encounter Date Diagnosis Assessment Notes Treatment Notes Treatment Clinical Notes Mar, Obesity, Class II, BMI 35-39.9 (ICD-10 - E66.01) Consultation date 01-02-2023, weight (pounds): 211.7 Follow-up date 02-03-2023, weight (pounds): 212.5 Follow-up date 03-19-2023, weight (pounds): 207.6 Plan is to take a weight centric approach to patient care in the treatment of obesity and patient's weight related comorbidities.-Discus sed the impact of obesity and excess adiposity on overall health and increased risk of associated health conditions-Discussed treatment options including lifestyle interventions and use of medications as an adjunct to amplify adherence to healthy behavior change-Discussed benefits, risks and side effects of medication. After informed discussion, patient would like to proceedOrders:-Insura nce requires 6 months of lifestyle weight management prior to medication approval, corresponding to date of 07-05-2023 -Patient trialed phentermine several years ago but experienced tachycardia. Patient is not a great candidate for phentermine or Qsymia -Look into premade protein drink for sugar cravings -Patient increasing frequency of gym workouts-A1c November 2022, 5.6%-Follow up in clinic in 8 weeksThis note was created with voice recognition software. 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 Mar, Dietary surveillance and counseling (ICD-10 - Z71.3) Discussed in detail high-protein, high-fiber, low-fat nutrition plan favoring calorie deficit and lean tissue mass preservation.-Lean protein sources at each meal supplemented with nutrient rich, low calorie density carbohydrates-Focus on consuming calories earlier in the day versus later; breakfast and lunch should be largest meals-Evening meal should be high in protein and low in carbohydrate to maximize lipolysis overnight-Aim for a minimum of 30 g of protein per meal with breakfast, lunch and dinner with total daily intake reaching at least 100 g-If needed, supplement with whey protein powder or premade protein drink low in carbohydrate and low in fat-If hungry between meals, consider protein snack low in carbohydrate and low in fat Mar, Exercise counseling (ICD-10 - Z71.89) Absolute HGS at time of consultation (pounds): 51.8 Absolute HGS at time of follow-up (pounds): 61.2 Discussed in detail exercise interventions to promote lean tissue mass preservation during calorie restriction.-In addition to regularly scheduled endurance and resistance exercise, perform bouts of resistance exercise prior to meals using body weight, resistance bands or dumbbells/weights-Fol lowing meals, consider aerobic exercise, such as brisk walking, to improve blood sugars and to mitigate hyperinsulinemia -Working with exercise physiology Mar, Dyslipidemia (ICD-10 - E78.5) Lipid panel November 2022 showing triglycerides 209 On Crestor 20 mg daily Mar, Essential hypertension (ICD-10 - I10) CLARI treated with CPAP Mar, Metabolic syndrome (ICD-10 - E88.81) Insulin resistant Mar, GERD (gastroesophageal reflux disease) (ICD-10 - K21.9) Mar, Osteoarthritis (ICD-10 - M19.90) Knee pain is limiting physical activity Mar, Other 35 minutes was spent reviewing patient specific healthcare information, interviewing, counseling, and communicating with the patient, and documenting clinical information. [employer] Other 09-22-2023 NotePatient ID: Carly Cesar is a 53 y.o. female. Large Joint: R knee on 02/28/2023 11:04 AM Indications: pain Details: 21 G needle, medial approach Outcome: tolerated well, no immediate complications Zilretta 5ml injected right knee Procedure, treatment alternatives, risks and benefits explained, specific risks discussed. Immediately prior to procedure a time out was called to verify the correct patient, procedure, equipment, home support worker and site/side marked as required. Patient was prepped and draped in the usual sterile fashion.[facility]08-30-2023 Evaluation note* Encounter Date Diagnosis Assessment Notes Treatment Notes Treatment Clinical Notes Jan, Obesity, unspecified classification, unspecified obesity type, unspecified whether serious comorbidity present (ICD-10 - E66.9) Jan, Other Summary of Visi t: (A) group discussion about breakfast challenges and ideas (B) participants shared idea for breakfast and addressing common challenges Patient set the following goals: NOT REVIEWED [employer] Other 08-28-2023 Evaluation note* Encounter Date Diagnosis Assessment Notes Treatment Notes Treatment Clinical Notes Jan, Obesity, Class II, BMI 35-39.9 (ICD-10 - E66.01) Consultation date 01-02-2023, weight (pounds): 211.7 Follow-up date 02-03-2023, weight (pounds): 212.5 Plan is to take a weight centric approach to patient care in the treatment of obesity and patient's weight related comorbidities.-Discus sed the impact of obesity and excess adiposity on overall health and increased risk of associated health conditions-Discussed treatment options including lifestyle interventions and use of medications as an adjunct to amplify adherence to healthy behavior change-Discussed benefits, risks and side effects of medication. After informed discussion, patient would like to proceedOrders:-Wegovy denied. Patient needs to trial phentermine, Qsymia, and Contrave prior -Patient trialed phentermine several years ago but experienced tachycardia. Patient is not a great candidate for phentermine or Qsymia -Trial Contrave. During second week patient can stop Wellbutrin 150 mg-A1c November 2022, 5.6%-Follow up in clinic in 6 weeksThis note was created with voice recognition software. 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 Jan, Dietary surveillance and counseling (ICD-10 - Z71.3) Discussed in detail high-protein, high-fiber, low-fat nutrition plan favoring calorie deficit and lean tissue mass preservation.-Lean protein sources at each meal supplemented with nutrient rich, low calorie density carbohydrates-Focus on consuming calories earlier in the day versus later; breakfast and lunch should be largest meals-Evening meal should be high in protein and low in carbohydrate to maximize lipolysis overnight-Aim for a minimum of 30 g of protein per meal with breakfast, lunch and dinner with total daily intake reaching at least 100 g-If needed, supplement with whey protein powder or premade protein drink low in carbohydrate and low in fat-If hungry between meals, consider protein snack low in carbohydrate and low in fat Jan, Exercise counseling (ICD-10 - Z71.89) Absolute HGS at time of consultation (pounds): 51.8 Absolute HGS at time of follow-up (pounds): 52.4 Discussed in detail exercise interventions to promote lean tissue mass preservation during calorie restriction.-In addition to regularly scheduled endurance and resistance exercise, perform bouts of resistance exercise prior to meals using body weight, resistance bands or dumbbells/weights-Fol lowing meals, consider aerobic exercise, such as brisk walking, to improve blood sugars and to mitigate hyperinsulinemia Jan, Dyslipidemia (ICD-10 - E78.5) Jan, Essential hypertension (ICD-10 - I10) Jan, Metabolic syndrome (ICD-10 - E88.81) Jan, GERD (gastroesophageal reflux disease) (ICD-10 - K21.9) Jan, Osteoarthritis (ICD-10 - M19.90) Knee pain is limiting physical activity Jan, Other 31 minutes was spent reviewing patient specific healthcare information, interviewing, counseling, and communicating with the patient, and documenting clinical information. [employer] Other 08-25-2023 Note01/31/23 Here today in follow up appt., injection provided significant pain relief x 3 months, pain returning 09/26/22 52-year-old female seen the clinic today as a new patient with complaints of chronic right knee pain. She has had this pain for over 6 months now. She denies any locking or catching. She was treated by her primary care provider and has underwent medication treatment as well as corticosteroid injection and the Synvisc 1 injection. The injections provided only short-term pain relief. She has not tried any formal physical therapy. She had an MRI which showed a posterior horn medial meniscal tear as well as moderate grade articular cartilage loss. These films are not available for review today we do have the report. She is accompanied today's visit by her family member. She has no additional complaints. Review of systems denies any locking or catching to her right knee. No erythema or warmth to her right knee No CP or SOB Physical exam General appearance no apparent distress in sitting position HEENT normocephalic Mood and affect appropriate Coordination intact Skin intact Gait ambulates with limp Motor strength lower extremities 5 out of 5 Sensory exam intact to light touch Lungs no dyspnea noted Alert and oriented time person and place Exam of the right knee shows skin to be intact. There is no open wounds or ulcerations noted. There is no erythema or warmth about the right knee joint. She is with full range of motion of the right knee. She has mild tenderness to palpation to the medial joint line. No laxity noted. Neurovascular intact distally. X-rays obtained and reviewed today show medial compartment patella femoral compartment moderate osteoarthritis right knee MRI report shows posterior horn medial meniscal tear with moderate grade articular cartilage loss, actual MRI films are not available for review. Plan Clinical and radiographic findings were discussed with the patient. Obtain approval for right knee Lillian injectionMer[facility]07-31-2023 Evaluation note* Encounter Date Diagnosis Assessment Notes Treatment Notes Treatment Clinical Notes Dec, Obesity, unspecified classification, unspecified obesity type, unspecified whether serious comorbidity present (ICD-10 - E66.9) Dec, BMI 39.0-39.9,adult (ICD-10 - Z68.39) Dec, Other Summary of Visi t: (A) Presentation of Plate Method discussed (B) Sample meal ideas reviewed (C) exercise recommendations reviewed Patient set the following goals: - patient set personal goal using given handout. [employer] Other 07-27-2023 Evaluation note* Encounter Date Diagnosis Assessment Notes Treatment Notes Treatment Clinical Notes Dec, Obesity, Class II, BMI 35-39.9 (ICD-10 - E66.01) Consultation date 01-02-2023, weight (pounds): 211.7Plan is to take a weight centric approach to patient care in the treatment of obesity and patient's weight related comorbidities.-Discuss ed the impact of obesity and excess adiposity on overall health and increased risk of associated health conditions-Discussed treatment options including lifestyle interventions and use of medications as an adjunct to amplify adherence to healthy behavior change-Discussed benefits, risks and side effects of medication. After informed discussion, patient would like to proceedOrders:-Initiat e Wegovy 0.25 mg once weekly and titrate up as tolerated -Patient trialed phentermine several years ago but experienced tachycardia -If Wegovy is not covered, consider Contrave and discontinue Wellbutrin-Recent A1c November 2022, 5.6%-Follow up in clinic in 4 weeksThis note was created with voice recognition software. 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 Dec, Dietary surveillance and counseling (ICD-10 - Z71.3) Discussed in detail high-protein, high-fiber, low-fat nutrition plan favoring calorie deficit and lean tissue mass preservation.-Lean protein sources at each meal supplemented with nutrient rich, low calorie density carbohydrates-Focus on consuming calories earlier in the day versus later; breakfast and lunch should be largest meals-Evening meal should be high in protein and low in carbohydrate to maximize lipolysis overnight-Aim for a minimum of 30 g of protein per meal with breakfast, lunch and dinner with total daily intake reaching at least 100 g-If needed, supplement with whey protein powder or premade protein drink low in carbohydrate and low in fat-If hungry between meals, consider protein snack low in carbohydrate and low in fat Dec, Exercise counseling (ICD-10 - Z71.89) Absolute HGS at time of consultation (pounds): 51.8Discussed in detail exercise interventions to promote lean tissue mass preservation during calorie restriction.-In addition to regularly scheduled endurance and resistance exercise, perform bouts of resistance exercise prior to meals using body weight, resistance bands or dumbbells/weights-Foll owing meals, consider aerobic exercise, such as brisk walking, to improve blood sugars and to mitigate hyperinsulinemia Dec, Dyslipidemia (ICD-10 - E78.5) Dec, Essential hypertension (ICD-10 - I10) Dec, Metabolic syndrome (ICD-10 - E88.81) Dec, GERD (gastroesophageal reflux disease) (ICD-10 - K21.9) [employer] Other 01-12-2023 NotePROCEDURE: XR KNEE RT 4V or > HISTORY: Osteoarthritis ; right knee pain COMPARISON: XR knee right 02/12/2022 FINDINGS: BONES:No fracture, acute abnormality, or significant arthropathy. SOFT TISSUES:No visible soft tissue swelling. EFFUSION:None visible. OTHER: Negative. IMPRESSION: 1. No acute bone abnormality or significant degenerative changes. Electronically authenticated by: BETH ROACH Date: 2022-06-20 08:14[facility]09-06-2022 NotePROCEDURE: XR KNEE RT 4V or > COMPARISON: None. HISTORY: Osteoarthritis FINDINGS: BONES:No fracture, acute abnormality, or significant arthropathy. SOFT TISSUES:Negative. No visible soft tissue swelling. EFFUSION:None visible. OTHER: Negative. IMPRESSION: No acute disease. Electronically authenticated by: JADA PRIETO Date: 2022-02-12 19:52[facility]07-09-2022 Evaluation note* Encounter Date Diagnosis Assessment Notes Treatment Notes Treatment Clinical Notes Dec, Toe pain, right (ICD-10 - M79.674) Dec, Sprain of fourth toe of right foot, initial encounter (ICD-10 - S93.504A) Drink plenty fluids, get plenty of rest. Baldemar tape your toe for comfort and compression. Take ibuprofen as needed for pain and swelling. Ice and elevate your foot 2-3 times a day. Follow-up with your family physician if no improvement in 5 to 7 days Dec, Other Buddying tape material was printed, Toe sprain material was printed [employer] Other 03-04-2022 Evaluation note* Encounter Date Diagnosis Assessment Notes Treatment Notes Treatment Clinical Notes Aug, Right wrist pain (ICD-10 - M25.531) discussed c pt that mass is suspicous of a ganglia or epidermal cyst that might have gotten inflammed with strenuous activity. recommended conservative treatment with rest, cool compresses, otc tylenol and wrapping with GERA bandage as needed. f/u if s/s of redness, swelling, warmth, purulent drainage, or increased pain. in terms of the numbness & tingling, discussed that this may be an unrelated issue that could be stemming from previous shoulder surgery that could have been aggrevated with exercise as well. advised pt to f/u if that worsens in the next week or so. seek immediate evaluation via ER if warning symptoms of loss of motor function or sensation, coolness or palor of limb. Aug, Other Due to infec tion control protocols for COVID-19 virus, direct physical contact with patient was limited to only the absolute essential needed assessments. [employer] Other Chief complaint+Reason for visit Narrative* Chief Complaint Exercise Reason for Visit Dietary surveillance and counseling Exercise counseling Obesity, Class II, BMI 35-39.9 Dietary surveillance and counseling Exercise counseling Obesity, Class II, BMI 35-39.9 [facility] Work Phone: Evaluation + Plan note Future Appointments Appointment Date:06/30/2024 09:30:00 AM Scheduled Provider: Location:[facility] Surgical Services Appointment Type:Surgery FT Diagnostic Tests Pending * Urine Culture 06/17/24 [facility] Evaluation noteNo InformationNort Runnit Other Evaluation noteNo assessment information available [facility] Work Phone: Evaluation note* Diagnosis Right shoulder pain, unspecified chronicity- Primary Impingement of right shoulder [facility] Diagnosis Onset Date Resolution Status Dietary surveillance and counseling acute Exercise counseling acute Obesity, Class II, BMI 35-39.9 acute Dietary surveillance and counseling acute Exercise counseling acute Obesity, Class II, BMI 35-39.9 acute [facility] Work Phone: evaluation note* Diagnosis Onset Date Resolution Status Dietary surveillance and counseling acute Exercise counseling acute Obesity, Class II, BMI 35-39.9 acute Dietary surveillance and counseling acute Exercise counseling acute Obesity, Class II, BMI 35-39.9 acute Acute cystitis with hematuria noneactive [facility] Work Phone: evaluation note* Diagnosis Onset Date Resolution Status Dietary surveillance and counseling acute Exercise counseling acute Obesity, Class II, BMI 35-39.9 acute Acute cystitis with hematuria noneactive [facility] Work Phone: evaluation note* Diagnosis Onset Date Resolution Status Dietary surveillance and counseling acute Exercise counseling acute Obesity, Class II, BMI 35-39.9 acute Acute cystitis with hematuria noneactive Dietary surveillance and counseling acute Exercise counseling acute Obesity, Class II, BMI 35-39.9 acute [facility] Work Phone: evaluation note* Diagnosis Onset Date Resolution Status Dietary surveillance and counseling acute Exercise counseling acute Obesity, Class II, BMI 35-39.9 acute Acute cystitis with hematuria noneactive Dietary surveillance and counseling acute Exercise counseling acute Obesity, Class II, BMI 35-39.9 acute Osteoarthritis of right knee acute Right knee meniscal tear acu te [facility] Work Phone: evaluation note* Diagnosis Onset Date Resolution Status Dietary surveillance and counseling acute Exercise counseling acute Obesity, Class II, BMI 35-39.9 acute Acute cystitis with hematuria noneactive Dietary surveillance and counseling acute Exercise counseling acute Obesity, Class II, BMI 35-39.9 acute Osteoarthritis of right knee acute Right knee meniscal tear acu te Encounter for removal of sutures acute Osteoarthritis of right knee acute Right knee meniscal tear acu te Status post arthroscopy of right knee acute [facility] Work Phone: Evaluation note* Diagnosis Onset Date Resolution Status Acute cystitis with hematuria noneactive Dietary surveillance and counseling acute Exercise counseling acute Obesity, Class II, BMI 35-39.9 acute Osteoarthritis of right knee acute Right knee meniscal tear acu te Encounter for removal of sutures acute Osteoarthritis of right knee acute Right knee meniscal tear acu te Status post arthroscopy of right knee acute Encounter for removal of sutures acute Osteoarthritis of right knee acute Right knee meniscal tear acu te Status post arthroscopy of right knee acute [facility] Work Phone: Evaluation note* Diagnosis Right knee pain, unspecified chronicity- Primary Primary osteoarthritis of right knee [facility] Diagnosis Pre-op testing Unspecified pre-operative examination documented in this encounter [facility] HealthcareHistory general Narrative - Reported* Type Description Date Medical History Hypercholesteremia Medical History Anxiety and depression Surgical History LEEP Surgical History ear reattached and d ent removal on side of face from injury Surgical History right shoulder bone spur Hospitalization History No Hospitalization histo ry information [employer] Other Hisyhxk general Narrative - Reported* Type Description Date Medical History Hypercholesteremia Medical History Anxiety and depression Surgical History LEEP Surgical History ear reattached and d ent removal on side of face from injury Surgical History right shoulder bone spur Hospitalization History see above [employer] Other Histwmj general Narrative - Reported* Type Description Date Medical History Hypercholesteremia Medical History Anxiety and depression Medical History Hypertension Surgical History LEEP Surgical History ear reattached and d ent removal on side of face from injury Surgical History right shoulder bone spur Surgical History [place] teeth extraction Hospitalization History see above [employer] Other Hospital course Narrative No data available for this section [facility] Hospital Discharge instructions No data available for this section [facility] InstructionsNot on filedocumented in this encounter [facility] this [facility] filedocumented in this encounter [facility] No data available for this section [facility] Summary Purpose Family History No Family History Records Found Relationship Condition Age at Onset Recorded Date/T diogo brother Unknown Family history of mental disorder Unknown father Heart disease Unknown Unknown Not Specified Heart disease Unknown Diabetes mellitus Unknown Hypertension Unknown sister Family history of mental disorder Unknown History of stroke Unknown Heart disease Unknown Relationship Condition Age at Onset Recorded Date/T diogo brother Unknown Family history of mental disorder Unknown father Heart disease Unknown Unknown Not Specified Diabetes mellitus Unknown Heart disease Unknown Hypertension Unknown sister Heart disease Unknown History of stroke Unknown brother Muscular dystrophy Unknown Relationship Condition Age at Onset Recorded Date/T diogo brother Unknown Family history of mental disorder Unknown father Heart disease Unknown Unknown mother Diabetes mellitus Unknown Heart disease Unknown Hypertension Unknown sister Heart disease Unknown History of stroke Unknown brother Muscular dystrophy Unknown Advance Directives No Advanced Directives Records FoundDocuments on File Type Date Recorded Patient Packing Shed Supervisor Expl anation Advance Directives and Living Will Power of Office Rn Advance Directive Response Recorded Date/ Time Advance Directives No October 11, 2019 6:12am Advance Directive Response Recorded Date/ Time Advance Directives No September 04 1:28pm Assessments Diagnosis Screening mammogram, encounter for Well female exam with routine gynecological exam Routine gynecological examination Chief Complaint and Reason for Visit Chief Complaint exercise Obesity Chief Complaint Exercise possible uti- burning Dysuria Reason for Visit Dietary surveillance and counseling Exercise counseling Obesity, Class II, BMI 35-39.9 Dietary surveillance and counseling Exercise counseling Obesity, Class II, BMI 35-39.9 Acute cystitis with hematuria Chief Complaint Exercise possible uti- burning R30.0 Reason for Visit Dietary surveillance and counseling Exercise counseling Obesity, Class II, BMI 35-39.9 Acute cystitis with hematuria Chief Complaint Exercise possible uti- burning R30.0 Reason for Visit Dietary surveillance and counseling Exercise counseling Obesity, Class II, BMI 35-39.9 Acute cystitis with hematuria Dietary surveillance and counseling Exercise counseling Obesity, Class II, BMI 35-39.9 Chief Complaint Exercise possible uti- burning R30.0 M25.561 - Pain in right knee NEW RT KNEE PAIN WX Reason for Visit Dietary surveillance and counseling Exercise counseling Obesity, Class II, BMI 35-39.9 Acute cystitis with hematuria Dietary surveillance and counseling Exercise counseling Obesity, Class II, BMI 35-39.9 Osteoarthritis of right knee Right knee meniscal tear Chief Complaint Exercise possible uti- burning R30.0 M25.561 - Pain in right knee NEW RT KNEE PAIN WX Knee Pain Reason for Visit Dietary surveillance and counseling Exercise counseling Obesity, Class II, BMI 35-39.9 Acute cystitis with hematuria Dietary surveillance and counseling Exercise counseling Obesity, Class II, BMI 35-39.9 Osteoarthritis of right knee Right knee meniscal tear Chief Complaint Exercise possible uti- burning R30.0 M25.561 - Pain in right knee NEW RT KNEE PAIN WX Knee Pain Knee Pain Knee Pain Reason for Visit Dietary surveillance and counseling Exercise counseling Obesity, Class II, BMI 35-39.9 Acute cystitis with hematuria Dietary surveillance and counseling Exercise counseling Obesity, Class II, BMI 35-39.9 Osteoarthritis of right knee Right knee meniscal tear Chief Complaint possible uti- burnin g R30.0 M25.561 - Pain in right knee NEW RT KNEE PAIN WX Knee Pain Knee Pain Knee Pain 10-14 days post op Reason for Visit Dietary surveillance and counseling Exercise counseling Obesity, Class II, BMI 35-39.9 Acute cystitis with hematuria Dietary surveillance and counseling Exercise counseling Obesity, Class II, BMI 35-39.9 Osteoarthritis of right knee Right knee meniscal tear Encounter for removal of sutures Osteoarthritis of right knee Right knee meniscal tear Status post arthroscopy of right knee Chief Complaint possible uti- burnin g R30.0 M25.561 - Pain in right knee NEW RT KNEE PAIN WX Knee Pain Knee Pain Knee Pain 10-14 days post op 4 WEEKS Reason for Visit Acute cystitis with hematuria Dietary surveillance and counseling Exercise counseling Obesity, Class II, BMI 35-39.9 Osteoarthritis of right knee Right knee meniscal tear Encounter for removal of sutures Osteoarthritis of right knee Right knee meniscal tear Status post arthroscopy of right knee Encounter for removal of sutures Osteoarthritis of right knee Right knee meniscal tear Status post arthroscopy of right knee Chief Complaint M25.561 - Pain in ri ght knee NEW RT KNEE PAIN WX Knee Pain Knee Pain Knee Pain 10-14 days post op 4 WEEKS pt Reason for Visit Dietary surveillance and counseling Exercise counseling Obesity, Class II, BMI 35-39.9 Osteoarthritis of right knee Right knee meniscal tear Encounter for removal of sutures Osteoarthritis of right knee Right knee meniscal tear Status post arthroscopy of right knee Encounter for removal of sutures Osteoarthritis of right knee Right knee meniscal tear Status post arthroscopy of right knee Hypertension Mixed hyperlipidemia Obesity (BMI 30.0-34.9) Osteoarthritis of right knee Chief Complaint M25.561 - Pain in ri ght knee NEW RT KNEE PAIN WX Knee Pain Knee Pain Knee Pain 10-14 days post op 4 WEEKS pt Z98.890 - Other specified postprocedural states increased rt knee pain, s/p meniscectomy Reason for Visit Dietary surveillance and counseling Exercise counseling Obesity, Class II, BMI 35-39.9 Osteoarthritis of right knee Right knee meniscal tear Encounter for removal of sutures Osteoarthritis of right knee Right knee meniscal tear Status post arthroscopy of right knee Encounter for removal of sutures Osteoarthritis of right knee Right knee meniscal tear Status post arthroscopy of right knee Hypertension Mixed hyperlipidemia Obesity (BMI 30.0-34.9) Osteoarthritis of right knee MCL sprain of left knee Osteoarthritis of right knee Right knee meniscal tear Status post arthroscopy of right knee Chief Complaint M25.561 - Pain in ri ght knee NEW RT KNEE PAIN WX Knee Pain Knee Pain Knee Pain 10-14 days post op 4 WEEKS pt Z98.890 - Other specified postprocedural states increased rt knee pain, s/p meniscectomy DUROLANE RT KNEE Reason for Visit Dietary surveillance and counseling Exercise counseling Obesity, Class II, BMI 35-39.9 Osteoarthritis of right knee Right knee meniscal tear Encounter for removal of sutures Osteoarthritis of right knee Right knee meniscal tear Status post arthroscopy of right knee Encounter for removal of sutures Osteoarthritis of right knee Right knee meniscal tear Status post arthroscopy of right knee Hypertension Mixed hyperlipidemia Obesity (BMI 30.0-34.9) Osteoarthritis of right knee MCL sprain of left knee Osteoarthritis of right knee Right knee meniscal tear Status post arthroscopy of right knee MCL sprain of left knee Osteoarthritis of right knee Right knee meniscal tear Status post arthroscopy of right knee Chief Complaint 10-14 days post op 4 WEEKS pt Z98.890 - Other specified postprocedural states increased rt knee pain, s/p meniscectomy DUROLANE RT KNEE 8 WEEKS Reason for Visit Encounter for remova l of sutures Osteoarthritis of right knee Right knee meniscal tear Status post arthroscopy of right knee Encounter for removal of sutures Osteoarthritis of right knee Right knee meniscal tear Status post arthroscopy of right knee Hypertension Mixed hyperlipidemia Obesity (BMI 30.0-34.9) Osteoarthritis of right knee MCL sprain of left knee Osteoarthritis of right knee Right knee meniscal tear Status post arthroscopy of right knee MCL sprain of left knee Osteoarthritis of right knee Right knee meniscal tear Status post arthroscopy of right knee MCL sprain of left knee Osteoarthritis of right knee Right knee meniscal tear Status post arthroscopy of right knee Reason for Referral Specialty Diagnoses / Procedures Referred By Aubrey t Referred To Contact Orthopaedic Surgery Diagnoses Impingement of right shoulder Procedures L Inj/Asp: R subacromial bursa Fiona Winn, GUEST RELATIONS OFFICER [address] [facility] [address] [place] [address] Referral ID Status Reason Start Date Expiration Date V isits Requested Visits Authorized [id number] Pending Review 07/14/2023 01/10/2024 1 1 Additional Source Comments INFORMATION SOURCE (unrecogn ized section and content) DATE CREATED AUTHOR 07/28/2019 [facility] DATE CREATED AUTHOR AUTHOR'S ORGANIZ ATION 10/03/2022 [facility] DATE CREATED AUTHOR AUTHOR'S ORGANIZ ATION 10/29/2023 [facility] DATE CREATED AUTHOR AUTHOR'S ORGANIZ ATION 12/06/2023 [facility] DATE CREATED AUTHOR AUTHOR'S ORGANIZ ATION 01/15/2024 [facility] DATE CREATED AUTHOR AUTHOR'S ORGANIZ ATION 05/02/2024 [facility] DATE CREATED AUTHOR AUTHOR'S ORGANIZ ATION 06/22/2024 [facility] DATE CREATED AUTHOR AUTHOR'S ORGANIZ ATION 06/22/2024 [facility] EPIC DATE CREATED AUTHOR AUTHOR'S ORGANIZ ATION 06/23/2024 [facility] Center REASON FOR VISIT (unrecogniz ed section and content) Reason Comments Med Refill Reason Comments Pain Reason Comments Pain Reason Onset Date Comments wt loss, dizzy, bp med hold 05/12/2024 Reason Comments Follow-up H&P Rt [facility] [place] [place] 06/30 Care Teams (unrecognized sec tion and content) Team Status: Active Member Role Status Dates Cristian Muñoz MD Family Provider Active Cristian Muñoz MD Primary Care Provider Active Team Status: Inactive Member Role Status Dates Cristian Muñoz MD Primary Care Provider, Family Provi jacinto Active Sandra Jules MD Attending Provider Active Team Status: Active Member Role Status Dates Cristian Muñoz MD Primary Care Provider, Family Provi jacinto Active Mitchel Baeza DO Attending Provider Active 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 Specialty Start Date End Date Cristian Muñoz MD [address] [place] [address] PCP - General Family Medicine 02/18/19 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 Specialty Start Date End Date Cristian Muñoz MD [address] [place] [facility] [place] [address] PCP - General 07/13/23 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 Specialty Start Date End Date Cristian Muñoz MD [address] [place] [facility] [place] [address] PCP - General 07/13/23 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 Specialty Start Date End Date Cristian Muñoz MD [address] [place] [address] PCP - General Family Medicine 02/18/19 Team Status: Inactive Member Role Status Dates Cristian Muñoz MD Primary Care Provider Active Start: July 31, 2023 End: July 31, 2023 Mitchel Baeza DO Attending Provider Active St art: July 31, 2023 End: July 31, 2023 Team Status: Inactive Member Role Status Dates Cristian Muñoz MD Primary Care Provider Active Start: September 08, 2023 End: October 07, 2023 Mitchel Baeza DO Attending Provider Active St art: September 08, 2023 End: October 07, 2023 Team Status: Inactive Member Role Status Dates Cristian Muñoz MD Primary Care Provider Active Start: September 29, 2023 End: September 29, 2023 Mitchel Baeza DO Attending Provider Active St art: September 29, 2023 End: September 29, 2023 Team Status: Active Member Role Status Dates Cristian Muñoz MD Family Provider Active Team Status: Inactive Member Role Status Dates Cristian Muñoz MD Primary Care Provider Active Start: October 18, 2023 End: October 18, 2023 Darlin Florian APRN Attending Provider Active Start: October 18, 2023 End: October 18, 2023 Team Status: Inactive Member Role Status Dates Darlin Florian APRN Attending Provider Active Start: October 18, 2023 End: October 18, 2023 Team Status: Active Member Role Status Dates Cristian Muñoz MD Family Provider Active PHYSICIAN NO FAMILY Primary Care Provider Active Team Status: Inactive Member Role Status Dates Darlin Florian APRN Attending Provider Active Start: October 18, 2023 End: October 18, 2023 PHYSICIAN NO FAMILY Primary Care Provider Active Start: October 18, 2023 End: October 18, 2023 Team Status: Inactive Member Role Status Dates Mitchel Baeza DO Attending Provider Active St art: November 24, 2023 End: November 24, 2023 PHYSICIAN NO FAMILY Primary Care Provider Active Start: November 24, 2023 End: November 24, 2023 Team Status: Active Member Role Status Dates PHYSICIAN NO FAMILY Primary Care Provider Active Start: November 25, 2023 Mookie Ospina DO Attending Provider Active St art: November 25, 2023 Team Status: Inactive Member Role Status Dates PHYSICIAN NO FAMILY Primary Care Provider Active Start: November 25, 2023 End: November 25, 2023 Mookie Ospina DO Attending Provider Active St art: November 25, 2023 End: November 25, 2023 Team Status: Inactive Member Role Status Dates Mookie Ospina DO Attending Provider Active St art: December 01, 2023 End: December 01, 2023 Cristian Muñoz MD Primary Care Provider Active Start: December 01, 2023 End: December 01, 2023 Team Status: Inactive Member Role Status Dates Mookie Ospina DO Attending Provider Active St art: December 05, 2023 End: December 05, 2023 Cristian Muñoz MD Primary Care Provider Active Start: December 05, 2023 End: December 05, 2023 Team Status: Active Member Role Status Dates Mookie Ospina DO Attending Provider, Other Provider Active Start: December 05, 2023 Cristian Muñoz MD Primary Care Provider Active Start: December 05, 2023 Team Status: Inactive Member Role Status Dates Mookie Ospina DO Attending Provider Active St art: December 18, 2023 End: December 18, 2023 Cristian Muñoz MD Primary Care Provider Active Start: December 18, 2023 End: December 18, 2023 Team Status: Active Member Role Status Yarelis Muñoz MD Primary Care Provide r, Attending Provider Active Start: October 23, 2023 Team Status: Active Member Role Status Yarelis Muñoz MD Primary Care Provide r, Attending Provider Active Start: December 26, 2023 Team Status: Inactive Member Role Status Yarelis Muñoz MD Primary Care Provider Active Start: January 15, 2024 End: January 15, 2024 Mookie Ospina DO Attending Provider Active St art: January 15, 2024 End: January 15, 2024 Team Status: Inactive Member Role Status Yarelis Jules MD Attending Provider Active Start: January 19, 2024 End: January 19, 2024 Cristian Muñoz MD Primary Care Provider Active Start: January 19, 2024 End: January 19, 2024 Team Status: Active Member Role Status Yarelis Muñoz MD Primary Care Provider Active Start: February 05, 2024 Mookie Ospina DO Attending Provider Active St art: February 05, 2024 Team Status: Inactive Member Role Status Yarelis Muñoz MD Primary Care Provider Active Start: February 05, 2024 End: February 05, 2024 Mookie Ospina DO Attending Provider Active St art: February 05, 2024 End: February 05, 2024 Team Status: Inactive Member Role Status Yarelis Muñoz MD Primary Care Provider Active Start: February 19, 2024 End: February 19, 2024 Mookie Ospina DO Attending Provider Active St art: February 19, 2024 End: February 19, 2024 Team Status: Inactive Member Role Status Yarelis Muñoz MD Primary Care Provider Active Start: March 08, 2024 End: March 08, 2024 Mookie Ospina DO Attending Provider Active St art: March 08, 2024 End: March 08, 2024 Team Status: Inactive Member Role Status Yarelis Muñoz MD Primary Care Provider Active Start: March 12, 2024 End: March 12, 2024 Sandra Jlues MD Attending Provider Active Start: March 12, 2024 End: March 12, 2024 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 Specialty Start Date End Date Cristian Muñoz MD [address] [place] [address] PCP - General 07/13/23 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 Specialty Start Date End Date Cristian Muñoz MD PCP - General Family Medicine 02/18/19 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 This clinical summary was aggregated from multiple sources. Caution should be exercised in using it in the provision of clinical care. This summary normalizes information from multiple sources, and as a consequence, information in this document may materially change the coding, format and clinical context of patient data. In addition, data may be omitted in some cases. CLINICAL DECISIONS SHOULD BE BASED ON THE PRIMARY CLINICAL RECORDS. [facility] provides no warranty or guarantee of the accuracy or completeness of information in this document.
== END 2024-06-23 20:00 | disposition home or self-care (01) ==
LOC: SLEEP 19:59
PROVIDERS: PCP Family Medicine; Visit Provider Family Medicine
DX: G47.33 Obstructive sleep apnea (adult) (pediatric) (principal)
CPT/HCPCS: 95811

== ENCOUNTER 2024-07-20 14:16 | Outpatient (RCR) | payer OTHER, SELFPAY | END 2024-09-11 11:04 | disposition home or self-care (01) | LOC: PT 14:16 | PROVIDERS: PCP Family Medicine; Visit Provider Orthopaedic Surgery | DX: Z47.1 Aftercare following joint replacement surgery (principal); Z96.651 Presence of right artificial knee joint | CPT/HCPCS: 97110; 97112; 97161 ==

== ENCOUNTER 2024-12-07 09:02 | Outpatient (OUT) | payer OTHER, SELFPAY ==
--- OUTSIDE RECORDS SUMMARY | 2024-12-07 09:08 | XMS_ITS | Encounter Summary ---
Author Organization [facility] Address [address] [place] [address] Care Team Providers Care Liver Trimmer Name Role Phone Alexis Sal MD Primary Care Provider [phone] Encounter Details Date Type Department Care Team (Late st Contact Info) Description 06/30/2024 Abstract [facility] [address] [facility] [place] [address] Clint Anand DO [address] [place] [address] Social History Tobacco Use Types Packs/Day Years Used Date Smoking Tobacco: Never Smokeless Tobacco: Never Alcohol Use Standard Drinks/Week Comments Yes 0 (1 standard drink = 0.6 oz pure alcohol) 1-2 drinks monthly or less, coffee 2-3 cups per day Comments Unknown Sex and Gender Information Value Date Recorded Sex Assigned at Female 07/13/2023 8:41 AM EST Legal Sex Female 6:45 PM EDT Gender Identity Female 07/13/2023 8:41 AM EST Sexual Orientation Not on file documented as of this encounter Plan of Treatment Upcoming Encounters Date Type Department Care Team (Late Contact Info) Description 12/27/2024 9:00 AM EDT Office Visit [facility] [address] [place]ER[place] Marcial [facility] [address] Clint Anand, [address] [place] [address] documented as of this encounter Visit Diagnoses Not on filedocumented in this encounter Care Teams Liver Trimmer Relationship Specialty Start Date End Date Alexis Sal MD PCP - General 07/13/23 documented as of this encounter
--- OUTSIDE RECORDS SUMMARY | 2024-12-07 09:08 | XMS_ITS | Referral Summary ---
Author Organization [facility] Address [address] [place] [address] Care Team Providers Care Sponge Hooker Name Role Phone Alexis Sal MD Primary Care Provider [phone] Allergies No known active allergies Medications cetirizine (ZyrTEC) 10 mg tablet Take 10 mg by mouth in the morning. 07/12/2019 Active pramipexole (Mirapex) 1 mg tablet Take 1 mg by mouth in the morning. 03/01/2020 Active buPROPion XL (Wellbutrin XL) 150 mg 24 hr tablet 09/04/2022 Active rosuvastatin (Crestor) 20 mg tablet 09/19/2022 Active pantoprazole (ProtoNix) 40 mg EC tablet Take 40 mg by mouth in the morning. 05/31/2020 Active losartan-hydroch lorothiazide (Hyzaar) 50-12.5 mg tablet Take 1 tablet by mouth in the morning. 08/02/2021 Active gabapentin (Neurontin) 300 mg capsule Take 300 mg by mouth in the morning, at noon, and at bedtime. Active Hospital, Clinic, or Other Facility Administered Medication Ordered Dose Route Frequency Start Date End Date Status triamcinolone acetonide (Zilretta) injection 32 mgIndications:Primary osteoarthritis of right knee 32 mg IAtc Once 06/05/2023 Active Active Problems Problem Noted Date Diagnosed Date Primary osteoarthritis of right knee 10/24/2022 Social History Tobacco Use Types Packs/Day Years Used Date Smoking Tobacco: Never Smokeless Tobacco: Never Tobacco Cessation:Counseling Given: Not Answered Alcohol Use Standard Drinks/Week Comments Never 0 (1 standard drink = 0.6 oz pur e alcohol) Humiliation, Afraid, Rape, and Kick questionnair e Answer Date Recorded Within the last year, have y ou been afraid of your partner or ex-partner? No 06/05/2023 Within the last year, have y ou been humiliated or emotionally abused in other ways by your partner or ex-partner? No Within the last year, have y ou been kicked, hit, slapped, or otherwise physically hurt by your partner or ex-partner? No 06/05/2023 Within the last year, have y ou been raped or forced to have any kind of sexual activity by your partner or ex-partner? No 06/05/2023 PHQ-2 Answer Date Recorded Patient Health Questionnaire-2 Score 0 06/05/2023 [facility] Answer Date Rec orded Within the last year, have y ou been afraid of your partner or ex-partner? No 06/05/2023 Within the last year, have y ou been humiliated or emotionally abused in other ways by your partner or ex-partner? No 06/05/2023 Within the last year, have y ou been kicked, hit, slapped, or otherwise physically hurt by your partner or ex-partner? No 06/05/2023 Within the last year, have y ou been raped or forced to have any kind of sexual activity by your partner or ex-partner? No 06/05/2023 Physically or Sexually Abused Not on file Comments Unknown Sex and Gender Information Value Date Recorded Sex Assigned at Not on file Legal Sex Female 2:22 PM EST Gender Identity Not on file Sexual Orientation Not on file Last Filed Vital Signs Vital Sign Reading Time Taken Comments Blood Pressure - - Pulse - - Temperature - - Respiratory Rate - - Oxygen Saturation - - Inhaled Oxygen Concentration - - Weight 95.3 kg (210 lb) 06/05/2023 10:02 AM EST Height 157.5 cm (5' 2 ) 06/05/2023 10:02 AM EST Body Mass Index 38.41 06/05/2023 10:02 AM EST Plan of Treatment Not on file Insurance Care Teams Sponge Hooker Relationship Specialty Start Date End Date Alexis Sal MD [address] [facility] [address] PCP - General 09/24/22
--- OUTSIDE RECORDS SUMMARY | 2024-12-07 09:08 | XMS_ITS | Clinical Summary ---
Author Organization [facility] Address [address] [place] [address] Care Team Providers Care Accredited Pharmacy Technician Name Role Phone Alexis Sal MD Primary Care Provider [phone] Medications cetirizine 10 mg ORAL tablet Take 10 mg by mouth once daily. Active diclofenac, EC, 75 mg ORAL EC tablet Take 75 mg by mouth twice daily. Active Social History Tobacco Use Types Packs/Day Years Used Date Smoking Tobacco: Never Assessed Comments Unknown Sex and Gender Information Value Date Recorded Sex Assigned at Not on file Legal Sex Female 10:14 AM EST Gender Identity Not on file Sexual Orientation Not on file Plan of Treatment Not on file Insurance Care Teams Accredited Pharmacy Technician Relationship Specialty Start Date End Date Alexis Sal MD PCP - General Family Medicine 08/13/11
--- OUTSIDE RECORDS SUMMARY | 2024-12-07 09:08 | XMS_ITS | Clinical Summary ---
Author Organization [facility] Address [address] [place] [address] Phone Care Team Providers Care Leasing Property Manager Name Role Phone Alexis Sal MD Primary Care Provider [phone] Encounters Date Type Department Care Team Description 11/04/2024 Transcribe Orders [facility] [address] [place] [address] Lemuel Jules Encounter for screening, unspecified (Primary Dx); Mixed hyperlipidemia; Essential (primary) hypertension from Last 3 Months Social History Tobacco Use Types Packs/Day Years Used Date Smoking Tobacco: Never Assessed Comments Unknown Sex and Gender Information Value Date Recorded Sex Assigned at Not on file Legal Sex Female 4:01 PM EST Gender Identity Not on file Sexual Orientation Not on file Plan of Treatment Health Maintenance Due Date Last Done Comments CT Colonography 1971 Colonoscopy 1971 Colorectal Cancer Screening 1971 FIT-DNA (Cologuard) 1971 FIT 1971 HIV Screening 1971 Lipid Panel 1971 Sigmoidoscopy 1971 Yearly Adult Physical 1971 MMR Vaccines (1 of 1 - Standard series) 01/14/1972 Hepatitis C Screening 1989 Hepatitis B Vaccines (1 of 3 - 19+ 3-dose series) 1990 HPV/Cotest 01/14/1992 DTaP/Tdap/Td Vaccines (1 - Tdap) 1993 Mammogram 2011 Cervical Cancer Screening 01/31/2014 Pap Smear 01/31/2014 01/31/2011, 01/09/2010, 11/22/2008 Pneumococcal Vaccine (1 of 1 - PCV) 2021 Zoster Vaccines (1 of 2) 2021 COVID-19 Vaccine (1 - 2023-2 5 season) 2024 Influenza Vaccine (Season Ended) 2025 03/02/2009 HIB Vaccines Aged Out No longer eligi ble based on patient's age to complete this topic HPV Vaccines (No Doses Required) Completed Hepatitis A Vaccines Aged Out No long er eligible based on patient's age to complete this topic IPV Vaccines Aged Out No longer eligi ble based on patient's age to complete this topic Meningococcal Vaccine Aged Out No lucas fannie eligible based on patient's age to complete this topic Rotavirus Vaccines Aged Out No longer eligible based on patient's age to complete this topic Procedures Procedure Name Priority Date/Time Associated Diagnosis Comments CONVERTED MATERIALS ASSISTANT CYTOLOGY Routine 01/31/2011 12:00 AM EDT from Last 3 Months or Most Recently Relevant to Health Maintenance Results * CONVERTED MATERIALS ASSISTANT CYTOLOGY (01/31/2011 12:00 AM EDT) Pathology Report ADDENDUM Date of Procedure: 01/31/2011 Pathologist: [facility], Cytology Date Reported: 02/08/2011 Date Received: 01/31/2011 Submitting Physician: HONEY SHIN M.D. Attending Physician: HONEY SHIN M.D. Procedures/Addenda Present FINAL CYTOLOGICAL INTERPRETATION A. THINPREP PAP ECTOCERVICAL/ENDOCE RVICAL: Specimen adequacy: SATISFACTORY FOR EVALUATION. Quality Indicator: Endocervical/transf ormation zone component is present. Quality Indicator: Partially obscuring inflammation. General Categorization: NEGATIVE FOR INTRAEPITHELIAL LESION OR MALIGNANCY. Ancillary Testing: An addendum report follows containing the HPV test results performed by the Molecular Diagnostics Laboratory at [facility]. This specimen has been analyzed by the [employer] Systems[employer] Imaging System ([employer] an automated imaging and review system, which assists the laboratory in evaluating cells on ThinPrep Pap tests. Following automated imaging, selected lugo from every slide were reviewed by a tin dipper and/or pathologist. Electronically Signed Out By [facility], Cytology//JARMANDO/PWM By the signature on this report, the individual or group listed as making the Final Interpretation/Diag nosis certifies that they have reviewed this case. Educational Note: Cervical cytology is a screening procedure primarily for squamous cancers and precursors and has associated false-negative and false-positive results as evidenced by published data. Your patient's test should be interpreted in this context, together with patient's history and clinical findings. Regular sampling and follow-up of unexplained clinical signs and symptoms are recommended to minimize false negative results. Clinical History Date of Last Menstrual Period: 01/09/11 Previous Abnormal Cytology: Dysplasia: SEVERE Other Clinical Conditions: High Risk Automatic HPV Testing Ordered except for LSIL, HSIL, Carcinoma Source of Specimen A: THINPREP PAP ECTOCERVICAL/ENDOCE RVICAL Addendum/Procedures : 1 HPV Addendum Date Ordered: 02/07/2011 Status: Signed Out Date Complete: 02/07/2011 Date Reported: 02/08/2011 Addendum Diagnosis SPECIMEN IS NEGATIVE FOR HIGH-RISK TYPE OF HUMAN PAPILLOMA VIRUS BY THE HYBRID CAPTURE 2 (HC2) HIGH-RISK HPV DNA TEST. THE HPV TYPES TESTED ARE: 16, 18, 31, 33, 35, 39, 45, 51, 52, 56, 58, 59, AND 68. NEGATIVE ASSAY RESULTS DO NOT COMPLETELY RULE OUT THE PRESENCE OF HPV TYPES: 16, 18, 31, 33, 35, 39, 45, 51, 52, 56, 58, 59, AND 68, PARTICULARLY AT VERY LOW CONCENTRATIONS. THIS TEST IS APPROVED BY THE [employer]. RESULTS OF THIS TEST SHOULD BE INTERPRETED IN CONJUNCTION WITH OTHER CLINICAL EVALUATION OF THE PATIENT AND WITH PAP TEST RESULTS. PLEASE REFER TO ASCCP CURRENT GUIDELINES FOR THE USE OF HPV DNA TESTING, RESULT INTERPRETATION, AND PATIENT MANAGEMENT. THIS TEST WAS PERFORMED BY THE MOLECULAR DI[facility]NOSTIC LABORATORY AT [facility], UNDER THE SUPERVISION OF DR. CECE FLORES MD. THE LAB IS CERTIFIED UNDER THE CLINICAL LABORATORY AMENDMENTS OF 1988 (CLIA-88) QUALIFIED TO PERFORM HIGH COMPLEXITY CLINICAL LABORATORY TESTING. Reference Range: Negative Electronically Signed Out By CECE FLORES MD/PWSaima By the signature on this report, the individual or group listed as making the Final Interpretation/Diag nosis certifies that they have reviewed this case. [facility] Department of Pathology [address] [place] [address] [facility]ATH CONVERTED FINAL DIAGNOSIS A. THINPREP PAP ECTOCERVICAL/ENDOCE RVICAL: Specimen adequacy: SATISFACTORY FOR EVALUATION. Quality Indicator: Endocervical/transf ormation zone component is present. Quality Indicator: Partially obscuring inflammation. General Categorization: NEGATIVE FOR INTRAEPITHELIAL LESION OR MALIGNANCY. Ancillary Testing: An addendum report follows containing the HPV test results performed by the Molecular Diagnostics Laboratory at [facility]. [facility]ATH CONVERTED DIAGNOSIS COMMENT This specimen has been analyzed by the [employer] Imaging System ([employer] an automated imaging and review system, which assists the laboratory in evaluating cells on ThinPrep Pap tests. Following automated imaging, selected lugo from every slide were reviewed by a tin dipper and/or pathologist. [facility] CONVERTED ADDENDUM DIAGNOSIS SPECIMEN IS NEGATIVE FOR HIGH-RISK TYPE OF HUMAN PAPILLOMA VIRUS BY THE HYBRID CAPTURE 2 (HC2) HIGH-RISK HPV DNA TEST. THE HPV TYPES TESTED ARE: 16, 18, 31, 33, 35, 39, 45, 51, 52, 56, 58, 59, AND 68. NEGATIVE ASSAY RESULTS DO NOT COMPLETELY RULE OUT THE PRESENCE OF HPV TYPES: 16, 18, 31, 33, 35, 39, 45, 51, 52, 56, 58, 59, AND 68, PARTICULARLY AT VERY LOW CONCENTRATIONS. THIS TEST IS APPROVED BY THE [employer]. RESULTS OF THIS TEST SHOULD BE INTERPRETED IN CONJUNCTION WITH OTHER CLINICAL EVALUATION OF THE PATIENT AND WITH PAP TEST RESULTS. PLEASE REFER TO ASCCP CURRENT GUIDELINES FOR THE USE OF HPV DNA TESTING, RESULT INTERPRETATION, AND PATIENT MANAGEMENT. THIS TEST WAS PERFORMED BY THE MOLECULAR DI[facility]NOSTIC LABORATORY AT [facility], UNDER THE SUPERVISION OF DR. CECE FLORES MD. THE LAB IS CERTIFIED UNDER THE CLINICAL LABORATORY AMENDMENTS OF 1988 (CLIA-88) QUALIFIED TO PERFORM HIGH COMPLEXITY CLINICAL LABORATORY TESTING. Reference Range: Negative [facility] CONVERTED FINAL REPORT PDF LINK TO COPY AND PASTE \\copathshare\copat h\PDF [id number] [email or web address].pdf [facility] TPP ECTO/ENDO 01/31/2011 01/31/2011 8:55 PM EDT us Honey Shin MD LAB CYTOLOGY ORDERABLES Final Result [facility] COPATH [address] [place] [address] from Last 3 Months or Most Recently Relevant to Health Maintenance Insurance [employer] Care Teams Leasing Property Manager Relationship Specialty Start Date End Date Alexis Sal MD [address] [facility] [place] [address] PCP - General 02/02/09
--- OUTSIDE RECORDS SUMMARY | 2024-12-07 09:08 | XMS_ITS | Encounter Summary ---
Author Organization [facility] Address [address] [place] [address] Care Team Providers Care Inside Horticultural Specialty Grower Name Role Phone Alexis Sal MD Primary Care Provider [phone] Encounter Details Date Type Department Care Team (Late st Contact Info) Description 06/30/2024 Clinisync Result Encounter [facility] External Department Unsolicited Clint Anand DO [address] [place] [address] Social History Tobacco Use Types Packs/Day Years [...] Encounters Date Type Department Care Team (Late st Contact Info) Description 12/27/2024 9:00 AM EDT Office Visit [facility] [address] [place] [id number] Clint Anand DO [address] [place] [address] documented as of this encounter Procedures Procedure Name Priority Date/Time Associated Diagnosis Comments XR KNEE 1 OR 2 VIEWS RIGHT 06/30/2024 11:07 AM EST documented in this encounter Results * XR KNEE 1 OR 2 VIEWS RIGHT (06/30/2024 11:07 AM EST) Anatomical Region Laterality Modality Other 06/30/2024 11:0 7 AM EST Narrative 06/30/2024 12:47 PM EST Exam Date/Time: 06/30/2024 11:22 EST Reason for Exam: Post-op evaluation;Other (please specify) Report IMPRESSION: RIGHT TOTAL KNEE REPLACEMENT. CLINICAL INFORMATION: Postop. COMMENT: 2 views. There is a right total knee prosthesis, in good position and alignment. There is gas in the soft tissues from the surgery. Ordering Provider: Clint Anand FINAL REPORT Dictated: 06/30/2024 12:44 pm Suresh Padron M.D. Signed (Electronic Signature): 06/30/2024 12:44 pm Signed by: Suresh Padron M.D. Transcribed by: GLORIA Technologist: ALANNA Technical Comments Radiation Dose: Ka,r in mGy = na DAP = na Procedure Note Radiology, Radiologist, MD - 06/30/2024 Exam Date/Time: 06/30/2024 11:22 EST Reason for Exam: Post-op evaluation;Other (please specify) Report IMPRESSION: RIGHT TOTAL KNEE REPLACEMENT. CLINICAL INFORMATION: Postop. COMMENT: 2 views. There is a right total knee prosthesis, in good positionand alignment. There is gas in the soft tissues from the surgery. Ordering Provider: Clint Anand FINAL REPORT Dictated: 06/30/2024 12:44 pm Suresh Padron M.D. Signed (Electronic Signature): 06/30/2024 12:44 pm Signed by: Suresh Padron M.D. Transcribed by: GLORIA Technologist: ALANNA Technical Comments Radiation Dose: Ka,r in mGy = na DAP = na us Clint Anand DO [facility] Final Result documented in this encounter Visit Diagnoses Not on filedocumented in this encounter Care Teams Inside Horticultural Specialty Grower Relationship Specialty Start Date End Date Alexis Sal MD PCP - General 07/13/23 documented as of this encounter
--- OUTSIDE RECORDS SUMMARY | 2024-12-07 09:08 | XMS_ITS | Encounter Summary ---
Author Organization [facility] Address [address] [place] [address] Care Team Providers Care Home Health Scheduler Name Role Phone Alexis Sal MD Primary Care Provider [phone] Encounter Details Date Type Department Care Team (Late st Contact Info) Description 06/17/2024 Clinisync Result Encounter [facility] External Department Unsolicited Clint Anand DO [address] [place] [address] Social History Tobacco Use Types Packs/Day Years [...] Office Visit [facility] [address] [place] [phone] Clint Anand DO [address] [place] [address] documented as of this encounter Procedures Procedure Name Priority Date/Time Associated Diagnosis Comments CT LOWER EXTREMITY W/O CONTRAST RIGHT 06/17/2024 1:27 PM EST documented in this encounter Results * CT LOWER EXTREMITY W/O CONTRAST RIGHT (06/17/2024 1:27 PM EST) Anatomical Region Laterality Modality Other 06/17/2024 1:27 PM EST Narrative 06/21/2024 2:22 PM EST Exam Date/Time: 06/17/2024 13:52 EST Reason for [...] low as reasonably achievable. Ordering Provider: Clint Anand FINAL REPORT Dictated: 06/21/2024 2:19 pm Zeyad Reza MD Signed (Electronic Signature): 06/21/2024 2:19 pm Signed by: Zeyad Reza MD Transcribed by: GLORIA Technologist: INDRA Procedure Note Radiology, Radiologist, - 06/21/2024 Exam Date/Time: 06/17/2024 13:52 EST Reason for Exam: RIGHT KNEE OA Report Impression: Right knee osteoarthritis. CT right lower extremity without intravenous contrast medium. History: Right knee osteoarthritis.. Technical factors: CT imaging of the right lower extremity was obtainedand formatted as 2 mm contiguous axial images through the right hip, and 1 mm contiguousaxial images through the right knee. Sagittal and coronal reconstruction of theright knee was obtained during postprocessing. Comparison: None. Findings: Right hip shows no fracture, dislocation, bone lesion. Right hip jointmaintained. Right knee shows narrowing of the medial, and lateral compartments. Nofracture, dislocation, bone lesion, effusion. All CT scans at this facility use dose modulation, iterativereconstruction, and/or weight based dosing when appropriate to reduce radiation dose to as low asreasonably achievable. Ordering Provider: Clint Anand FINAL REPORT Dictated: 06/21/2024 2:19 pm Zeyad Reza MD Signed (Electronic Signature): 06/21/2024 2:19 pm Signed by: Zeyad Reza MD Transcribed by: GLORIA Technologist: INDRA us Clint Anand DO [facility] Final Result documented in this encounter Visit Diagnoses Not on filedocumented in this encounter Care Teams Home Health Scheduler Relationship Specialty Start Date End Date Alexis Sal MD PCP - General 07/13/23 documented as of this encounter
--- OUTSIDE RECORDS SUMMARY | 2024-12-07 09:08 | XMS_ITS | Encounter Summary ---
Author Organization [facility] Address [address] [place] [address] Phone Care Team Providers Care Adjunct Professor Name Role Phone Alexis Sal MD Primary Care Provider [phone] Reason for Referral * Imaging (Routine) - Pending Review Specialty Diagnoses / Procedures Referred By Contac t Referred To Contact Radiology Diagnoses Encounter for screening, unspecified Mixed hyperlipidemia Essential (primary) hypertension Procedures CT cardiac scoring wo IV contrast Lemuel Jules fax: Referral ID Status Reason Start Date Expiration Date Visits Requested Visits Authorized [id number] Pending Review Perform Procedure 11/04/2024 11/04/2025 1 1 Encounter Details Date Type Department Care Team (Latest Contact Info) Description 11/04/2024 Transcribe Orders [facility] [address] [place] [address] Lemuel Jules Encounter for screening, unspecified (Primary Dx); Mixed hyperlipidemia; Essential (primary) hypertension Social History Tobacco Use Types Packs/Day Years Used Date Smoking Tobacco: Never Assessed Comments Unknown Sex and Gender Information Value Date Recorded Sex Assigned at Not on file Legal Sex Female 4:01 PM EST Gender Identity Not on file Sexual Orientation Not on file documented as of this encounter Plan of Treatment Scheduled Orders Name Type Priority Associated Diagnoses Orde r Schedule CT cardiac scoring wo IV contrast Imaging Routine Encounter for screening, unspecified Mixed hyperlipidemia Essential (primary) hypertension Expected: 11/04/2024, Expires: 11/04/2025 documented as of this encounter Visit Diagnoses Diagnosis Encounter for screening, unspecified- Primary Mixed hyperlipidemia Essential (primary) hypertension Unspecified essential hypertension documented in this encounter Care Teams Adjunct Professor Relationship Specialty Start Date End Date Alexis Sal MD [address] [place] [address] PCP - General 02/02/09 documented as of this encounter
--- OUTSIDE RECORDS SUMMARY | 2024-12-07 09:08 | XMS_ITS | Clinical Summary ---
Author Organization [facility] Address [address] [place] [address] Care Team Providers Care Slab Lifting Supervisor Name Role Phone Alexis Sal MD Primary Care Provider [phone] Allergies No known active allergies Medications cetirizine [...] 06/05/2023 10:02 AM EST Plan of Treatment Health Maintenance Due Date Last Done Comments CT Colonography 1971 FIT-DNA 1971 FIT 1971 FOBT 1971 Sigmoidoscopy 1971 Depression Screening 1983 Hepatitis B Vaccines (1 of 3 - 19+ 3-dose series) 1990 Adult Tetanus 1993 HPV/Cotest 2001 Mammogram 2011 Cervical Cancer Screening 07/19/2022 Pap Smear 07/19/2022 07/19/2019 COVID-19 Vaccine ( season) 2024 11/28/2020, 11/07/2020 Influenza Vaccine (Season Ended) 2025 06/19/2022, 03/27/2021, 03/30/2020, Additional history exists Colonoscopy 05/16/2031 05/16/2021 Colorectal Cancer Screening 05/16/2031 Zoster Vaccines Completed 10/04/2021, 06/14/2021 HIB Vaccines Aged Out No longer eligi ble based on patient's age to complete this topic HPV Vaccines Aged Out No longer eligi ble based on patient's age to complete this topic IPV Vaccines Aged Out No longer eligi ble based on patient's age to complete this topic Meningococcal B Vaccine Aged Out No l onger eligible based on patient's age to complete this topic Meningococcal Vaccine Aged Out No lucas fannie eligible based on patient's age to complete this topic Pneumococcal Vaccine: Pediatrics (0 to 5 Years) and At-Risk Patients (6 to 64 Years) Aged Out No longer eligible based on patient's age to complete this topic Rotavirus Vaccines Aged Out No longer eligible based on patient's age to complete this topic Insurance Care Teams Slab Lifting Supervisor Relationship Specialty Start Date End Date Alexis Sal MD [address] [facility] [address] [address] PCP - General 09/24/22
--- OUTSIDE RECORDS SUMMARY | 2024-12-07 09:08 | XMS_ITS | Encounter Summary ---
Author Organization [employer] Address [facility] [id number] [address] [place] [address] Care Team Providers Care Senior Project Coordinator Name Role Phone Alexis Sal MD Primary Care Provider [phone] Reason for Visit * Reason Comments Med Refill Encounter Details Date Type Department Care Team (Late st Contact Info) Description 03/18/2023 Refill [facility] [address] [place] [phone] Sameer Morton, PAOz [address] [place] [address] Med Refill Social History Tobacco Use Types Packs/Day Years Used Date Smoking Tobacco: Never Smokeless Tobacco: Never Alcohol Use Standard Drinks/Week Comments Yes 0 (1 standard drink = 0.6 oz pur e alcohol) rare Childcare Answer Date Recorded Childcare Unknown 02/09/2019 Employment Answer Date Recorded Employment Unknown 02/09/2019 Hunger Screening Answer Date Recorded Within the past 12 months we worried whether our food would run out before we got money to buy more. Never True 06/06/2022 Within the past 12 months th e food we bought just didn't last and we didn't have money to get more. Never True 06/06/2022 Purpose - Life Answer Date Recorded Purpose and direction in life Unknown Comments No Sex and Gender Information Value Date Recorded Sex Assigned at Female 07/15/2021 7:08 PM EST Legal Sex Female 3:04 PM EDT Gender Identity Female 07/15/2021 7:08 PM EST Sexual Orientation Straight 07/15/2021 7: 08 PM EST documented as of this encounter Miscellaneous Notes * Telephone Encounter - Shirley Flores RN - 03/18/2023 3:03 AM EDT Please sign and route if agreeable. Labs pended for further refills. Thank you OZIEL 06/06/22 ABN Lipids 02/13/22 documented in this encounter Plan of Treatment Not on file documented as of this encounter Results * Magnesium (04/07/2023 8:15 AM EDT) Magnesium 2.0 1.8 - 2.6 mg/dL 04/07/2023 1:24 PM EDT [facility] PLASMA 04/07/2023 8:15 AM EDT 04/07/2023 8:16 AM EDT Paulette Sommer BUSINESS ACCOUNT SPECIALIST-PREPARATION OPERATOR LAB BLOOD ORDERABLES Final Result [facility] [address], [address] [place] [address] * Basic Metabolic Panel (04/07/2023 8:15 AM EDT) Sodium 138 134 - 146 mmol/L 04/07/2023 1:24 PM EDT [facility] Potassium, Bld 3.6 3.5 - 5.0 mmol/L 04/07/2023 1:24 PM EDT [facility] Chloride 99 98 - 109 mmol/L 04/07/2023 1:24 PM EDT [facility] CO2 32 22 - 32 mmol/L 04/07/2023 1:24 PM EDT [facility] Anion gap 7 5 - 15 mmol/L 04/07/2023 1:24 PM EDT [facility] BUN 15 5 - 23 mg/dL 04/07/2023 1:24 PM EDT [facility] Creatinine 0.91 0.40 - 1.00 mg/dL 04/07/2023 1:24 PM EDT [facility] Comment:METHOD TRACEABLE TO IDMS STANDARD Glucose 98 65 - 99 mg/dL 04/07/2023 1:24 PM EDT [facility] Calcium 8.8 8.5 - 10.5 mg/dL 04/07/2023 1:24 PM EDT [facility] eGFR (CKD-EPI)non-ra ce dependent 76 >59 ml/min/1.7 3sq.m 04/07/2023 1:24 PM EDT [facility] Comment: Reported eGFR is based on the CKD-EPI 2020 equation that does not use a race coefficient. PLASMA 04/07/2023 8:15 AM EDT 04/07/2023 8:16 AM EDT us Paulette Sommer BUSINESS ACCOUNT SPECIALIST-PREPARATION OPERATOR LAB BLOOD ORDERABLES Final Result [facility] [address] [facility], [address] [place] [address] * (ABNORMAL) Lipid profile (04/07/2023 8:15 AM EDT) Cholesterol 148(L) 150 - 200 mg/dL 04/07/2023 1:24 PM EDT [facility] Triglycerides 206(H) 27 - 150 mg/dL 04/07/2023 1:24 PM EDT [facility] HDL Cholesterol 42 >39 mg/dL 1:24 PM EDT [facility] Comment: HDL <40 mg/dL - High Risk HDL > or = 40mg/dL- Desirable HDL >60 mg/dL - Negative Risk VLDL 41(H) 0 - 30 mg/dL 04/07/2023 1:24 PM EDT [facility] LDL (calc) 65 <130 mg/dL 04/07/2023 1:24 PM EDT [facility] Comment: LDL <100 mg/dL - Desirable LDL >160 mg/dL - High Risk Cholesterol:HDL Ratio 3.5 1.0 - 5.0 04/07/2023 1:24 PM EDT [facility] PLASMA 04/07/2023 8:15 AM EDT 04/07/2023 8:16 AM EDT us Paulette Sommer BUSINESS ACCOUNT SPECIALIST-PREPARATION OPERATOR LAB BLOOD ORDERABLES Final Result Performing Organization Address City/State/[facility] Co de Phone Number [facility] [address] [facility], [address] [place] [address] documented in this encounter Visit Diagnoses Diagnosis Medication management- Primary documented in this encounter Care Teams Senior Project Coordinator Relationship Specialty Start Date End Date Alexis Sal MD PCP - General Family Medicine 02/18/19 documented as of this encounter
--- OUTSIDE RECORDS SUMMARY | 2024-12-07 09:08 | XMS_ITS | Clinical Summary ---
Author Organization [facility] Address [address] [place] [address] Care Team Providers Care Bowling Ball Grader And Marker Name Role Phone Alexis Sal MD Primary Care Provider [phone] Allergies No known active allergies Medications buPROPion XL (Wellbutrin XL) 150 MG 24 hr tablet 09/04/2022 Active cetirizine (ZyrTEC) 10 MG tablet 04/01/2023 Active cholecalciferol (Vitamin D-[address]) 25 MCG (1000 UT) tablet Take 2,000 Units by mouth in the morning. Active Protonix 40 MG EC tablet 1 (one) time each day at the same time Active pramipexole (Mirapex) 1 MG tablet 12/25/2022 Active rosuvastatin (Crestor) 20 MG tablet 09/19/2022 Active fenofibrate micronized (Lofibra) 67 MG capsule Active Ferrous Sulfate (IRON PO) Take 1 tablet by mouth in the morning. Active Zepbound 10 MG/0.5ML solution auto-injector 04/02/2024 Activ e Multiple Vitamin (multivitamin) tablet Take 1 tablet by mouth Daily Active FIBER PO Take by mouth Active VITAMIN D PO Take by mouth Active Coenzyme Q10 (CO Q 10 PO) Take by mouth Active CeleBREX 200 MG capsule Take 200 mg by mouth 06/30/2024 Active gabapentin (Neurontin) 300 MG capsuleIndicati ons:S/P total knee arthroplasty, right Take 1 capsule (300 mg) by mouth at bedtime 30 capsule 08/12/2024 Active pregabalin (Lyrica) 75 MG capsuleIndicati ons:S/P total knee arthroplasty, right Take 1 capsule (75 mg) by mouth at bedtime 30 capsule 09/23/2024 Active celecoxib (CeleBREX) 100 MG capsuleIndicati ons:S/P total knee arthroplasty, right Take 1 capsule (100 mg) by mouth in the morning and 1 capsule (100 mg) before bedtime. Take as needed for pain. 60 capsule 2 08/31/2024 11/30/19 Active Problems Problem Noted Date Diagnosed Date Primary osteoarthritis of right knee 07/01/2024 Difficulty walking 07/01/2024 Acute postoperative pain of right knee Status post right knee replacement 07/01/2024 Encounters Date Type Department Care Team Description 10/26/2024 Telephone [facility] [address] [place] [phone] Chelsi Bernard RN 09/23/2024 9:15 AM EDT Office Visit [facility] [address] [place] [phone] Clint Anand DO S/P total knee arthroplasty, right (Primary Dx) 09/23/2024 8:05 AM EDT Ancillary Procedure [facility] [address] [place] [phone] 09/23/2024 Travel 09/17/2024 Travel from Last 3 Months Family History Medical History Relation Name Comments Drug abuse Brother 1 Bony Jordan Muscular dystrophy Brother 1 Bony Jordan Suicidality Brother 2 Drug abuse Daughter Tierra Leonila Alcohol abuse Father Mateusz Jordan Heart attack Father Mateusz Jordan Heart disease Father Mateusz Jordan Cancer Maternal Grandmother Estefany Sanzdor Diabetes Mother Laura Haenel Heart disease Mother Laura Bartonenechristophe Hypertension Mother Laura Mickenel Stroke Mother Laura Mickenel bleeding ulcer Mother Laura Aviles Cancer Mother's Sister Hyde Stroke Paternal Grandmother Heart disease Sister Channing Jordan Stroke Sister Channing Jordan Relation Name Status Comments Brother 1 Bony Jordan Brother 2 Daughter Tierra Leonila Alive Father Mateusz Jordan Maternal Grandfather Maternal Grandmother Estefany Kebede Mother Laura Aviles Mother's Sister Mary Ellen Paternal Grandfather Paternal Grandmother Sister Channing Jordan Alive Son Alive Social History Tobacco Use Types Packs/Day Years Used Date Smoking Tobacco: Never Smokeless Tobacco: Never Tobacco Cessation:Counseling Given: Not Answered Alcohol Use Standard Drinks/Week Comments Yes 0 (1 standard drink = 0.6 oz pure alcohol) 1-2 drinks monthly or less, coffee 2-3 cups per day Comments Unknown Sex and Gender Information Value Date Recorded Sex Assigned at Female 07/13/2023 8:41 AM EST Legal Sex Female 6:45 PM EDT Gender Identity Female 07/13/2023 8:41 AM EST Sexual Orientation Not on file Last Filed Vital Signs Vital Sign Reading Time Taken Comments Blood Pressure 120/82 11/19/2023 10:03 AM EDT Pulse 80 11/19/2023 10:03 AM EDT Temperature - - Respiratory Rate 16 11/19/2023 10:03 AM EDT Oxygen Saturation - - Inhaled Oxygen Concentration - - Weight 79.4 kg (175 lb) 09/23/2024 9:19 AM EDT Height 157.5 cm (5' 2 ) 09/23/2024 9:19 AM EDT Body Mass Index 32.01 09/23/2024 9:19 AM EDT Plan of Treatment Upcoming Encounters Date Type Department Care Team (Late st Contact Info) Description 12/27/2024 9:00 AM EDT Office Visit [facility] [address] [place] [address] Clint Anand DO [address] [place] [address] Health Maintenance Due Date Last Done Comments CT Colonography 1971 FIT-DNA 1971 FIT 1971 FOBT 1971 Sigmoidoscopy 1971 HPV/Cotest 2001 Mammogram 2011 Cervical Cancer Screening 07/19/2022 Pap Smear 07/19/2022 07/19/2019, 07/19/2019 Colonoscopy 05/16/2031 05/16/2021 Colorectal Cancer Screening 05/16/2031 Influenza Vaccine Completed 02/12/2024, , 03/27/2021, Additional history exists Procedures Procedure Name Priority Date/Time Associated Diagnosis Comments XR KNEE 3 VIEWS RIGHT Routine 09/23/2024 8:04 AM EDT S/P total knee arthroplasty, right from Last 3 Months Results * XR knee 3 views right (09/23/2024 8:04 AM EDT) Anatomical Region Laterality Modality Lower Extremities, Knee Right [facility] Imaging Narrative 09/23/2024 5:24 PM EDT Imaging Result: Three views, bilateral PA weight-bearing/sunrise/lateral right knee, taken today and saved to the permanent medical record are reviewed. Prosthesis is unchanged in position and alignment. No signs of prosthetic wear or loosening. No periprosthetic fractures. Clint Anand DO IMG XR PROCEDURES Final Result from Last 3 Months Insurance Care Teams Bowling Ball Grader And Marker Relationship Specialty Start Date End Date Alexis Sal MD PCP - General 07/13/23
--- OUTSIDE RECORDS SUMMARY | 2024-12-07 09:08 | XMS_ITS | Encounter Summary ---
Author Organization [facility] Address [facility] [id number] [address] [place] [address] Care Team Providers Care Call Center Supervisor Name Role Phone Alexis Sal MD Primary Care Provider [phone] Encounter Details Date Type Department Care Team (Late st Contact Info) Description 09/02/2024 Orders Only [facility] [address] [place] [phone] External, Scanning Provider Social History Tobacco Use Types Packs/Day Years [...] got money to buy more. Never True 09/26/2023 Within the past 12 months th e food we bought just didn't last and we didn't have money to get more. Never True 09/26/2023 Purpose - Life Answer Date Recorded Purpose and direction in life Unknown Comments No Sex and Gender Information Value Date Recorded Sex Assigned at Female 07/15/2021 7:08 PM EST Legal Sex Female 3:04 PM EDT Gender Identity Female 07/15/2021 7:08 PM EST Sexual Orientation Straight 07/15/2021 7: 08 PM EST documented as of this encounter Plan of Treatment Not on file documented as of this encounter Procedures Procedure Name Priority Date/Time Associated Diagnosis Comments XR CHEST 2 VWS Routine 06/17/2024 8:26 AM EST MULTIPLE LABS Routine 06/17/2024 8:25 AM EST ECG 12-LEAD Routine 06/17/2024 8:24 AM EST documented in this encounter Results * X-ray chest 2 views (06/17/2024 8:26 AM EST) Anatomical Region Laterality Modality Body, Chest N/A Computed Radiogr aphy us Scanning Provider External IMG DIAGNOSTIC IMAGIN G ORDERABLES Final Result * Multiple labs (06/17/2024 8:25 AM EST) us Scanning Provider External CT IMAGING Final Result MANUALLY TRANSCRIBED RESULTS * ECG 12 lead (06/17/2024 8:24 AM EST) us Scanning Provider External ECG ORDERABLES Final Result MANUALLY TRANSCRIBED RESULTS documented in this encounter Visit Diagnoses Not on filedocumented in this encounter Care Teams Call Center Supervisor Relationship Specialty Start Date End Date Alexis Sal MD PCP - General Family Medicine 02/18/19 documented as of this encounter
--- OUTSIDE RECORDS SUMMARY | 2024-12-07 09:08 | XMS_ITS | Encounter Summary ---
Author Organization [employer] Address [facility] [id number] [address] [place] [address] Care [address] Attendant Name Role Phone Alexis Sal MD Primary Care Provider [phone] Encounter Details Date Type Department Care Team (Late st Contact Info) Description 08/08/2021 Orders Only [facility] [address] [place] [phone] External, Scanning Provider Social History Tobacco Use Types Packs/Day Years Used Date Smoking Tobacco: Never Smokeless Tobacco: Never Alcohol Use Standard Drinks/Week Comments Yes 0 (1 standard drink = 0.6 oz pur e alcohol) rare Childcare Answer Date Recorded Childcare Unknown 02/09/2019 Employment Answer Date Recorded Employment Unknown 02/09/2019 Purpose - Life Answer Date Recorded Purpose and direction in life Unknown Comments No Sex and Gender Information Value Date Recorded Sex Assigned at Female 07/15/2021 7:08 PM EST Legal Sex Female 3:04 PM EDT Gender Identity Female 07/15/2021 7:08 PM EST Sexual Orientation Straight 07/15/2021 7: 08 PM EST COVID-19 Exposure Response Date Recorded In the last month, have you been in contact with someone who was confirmed or suspected to have Coronavirus / COVID-19? No / Unsure 08/10/2021 7:30 AM EST documented as of this encounter Plan of Treatment Not on file documented as of this encounter Procedures Procedure Name Priority Date/Time Associated Diagnosis Comments ECG 12-LEAD Routine 07/10/2020 documented in this encounter Results * ECG 12 lead (07/10/2020) us Scanning Provider External ECG ORDERABLES Final Result MANUALLY TRANSCRIBED RESULTS documented in this encounter Visit Diagnoses Not on filedocumented in this encounter Care Teams Lane Attendant Relationship Specialty Start Date End Date Alexis Sal MD PCP - General Family Medicine 02/18/19 documented as of this encounter
--- OUTSIDE RECORDS SUMMARY | 2024-12-07 09:08 | XMS_ITS | Clinical Summary ---
Author Organization [employer] Address [facility] [id number] [address] [place] [address] Care Team Providers Care Family Medicine Chair Name Role Phone Alexis Sal MD Primary Care Provider [phone] Allergies No known active allergies Medications cetirizine (ZyrTEC) 10 mg tablet Take 1 tablet (10 mg total) by mouth in the morning. Active phhdkvhu-sjkh-WF-c alcium &mins (THERAGRAN-M) 9 mg iron-400 mcg tablet Take 1 tablet by mouth in the morning. Active pramipexole (MIRAPEX) 1 mg tablet Take 2 tablets (2 mg total) by mouth in the morning. Active buPROPion XL (WELLBUTRIN XL) 150 mg 24 hr tablet Take 1 tablet (150 mg total) by mouth in the morning. 0 Active FeroSuL 325 mg (65 mg iron) tablet Take 1 tablet (325 mg total) by mouth in the morning. 1 Active pantoprazole (PROTONIX) 40 mg EC tablet Take 1 tablet (40 mg total) by mouth in the morning. 0 Active cholecalciferol (VITAMIN D3) 1,000 units tablet Take 2 tablets (2,000 Units total) by mouth in the morning. Active coenzyme Q10 100 mg capsule Take 1 capsule (100 mg total) by mouth in the morning. 30 capsule 11 2 Active rosuvastatin (CRESTOR) 20 mg tablet TAKE 1 TABLET IN THE EVENING 90 tablet 3 4 Active UNABLE TO FIND Eye promise 1 tablet daily Active tirzepatide, weight loss, (ZEPBOUND) 10 mg/0.5 mL solution Inject 10 mg under the skin every 7 days. Active fenofibrate micronized (LOFIBRA) 67 mg capsuleIndications :Other hyperlipidemia,Hig h triglycerides TAKE 1 TABLET BY MOUTH EVERY DAY IN THE MORNING BEFORE MEALS 90 capsule 3 Active celecoxib (CeleBREX) 100 mg capsule Take 1 capsule (100 mg total) by mouth in the morning and 1 capsule (100 mg total) before bedtime. 5 11/30/19 Active Problems Problem Noted Date Diagnosed Date Primary hypertension 06/05/2022 Dyslipidemia 06/05/2022 Family history of heart disease 08/02/2021 Essential hypertension 08/02/2021 Menopause 07/16/2021 Sleep apnea 02/09/2021 Hot flashes due to menopause 12/21/2020 Resolved Problems Problem Noted Date Diagnosed Date Resolved Date Obesity (BMI 30-39.9) 08/02/20212024 Shortness of breath 08/02/2021 01/13/20 Encounters Date Type Department Care Team Description 10/16/2024 Refill [facility] [address] [place] [address] Dayton Rivera MD Med Refill 09/27/2024 8:00 AM EDT Office Visit [facility] [address] [place] [phone] Zahira Tim, PA-C Family history of heart disease (Primary Dx); Primary hypertension; Dyslipidemia; Overweight (BMI 25.0-29.9) 09/27/2024 Travel from Last 3 Months Family History Medical History Relation Name Comments Muscular dystrophy Brother 1 Suicide Attempts Brother 2 No Known Problems Daughter Heart attack Father Heart disease Father Cancer Maternal Grandmother lung Diabetes Mother Heart disease Mother Hypertension Mother Stroke Mother Ulcers Mother Stroke Paternal Grandmother No Known Problems Sister 1 No Known Problems Sister 2 No Known Problems Son Relation Name Status Comments Brother 1 Brother 2 Daughter Alive Father Maternal Grandfather Maternal Grandmother Mother Paternal Grandfather Paternal Grandmother Sister 1 Alive Sister 2 Alive Son Alive Social History Tobacco Use [...] got money to buy more. Never True 09/27/2024 Within the past 12 months th e food we bought just didn't last and we didn't have money to get more. Never True 09/27/2024 Purpose - Life Answer Date Recorded Purpose and direction in life Unknown Comments No Sex and Gender Information Value Date Recorded Sex Assigned at Female 07/15/2021 7:08 PM EST Legal Sex Female 3:04 PM EDT Gender Identity Female 07/15/2021 7:08 PM EST Sexual Orientation Straight 07/15/2021 7: 08 PM EST Last Filed Vital Signs Vital Sign Reading Time Taken Comments Blood Pressure 116/80 09/27/2024 7:49 AM EDT Pulse 94 09/27/2024 7:49 AM EDT Temperature 36.4 C (97.5 F) 02/24/2019 3:08 PM EDT Respiratory Rate 16 02/24/2019 3:40 PM EDT Oxygen Saturation 99% 09/27/2024 7:49 AM EDT Inhaled Oxygen Concentration - - Weight 70.3 kg (155 lb) 09/27/2024 7:49 AM EDT Height 157.5 cm (5' 2 ) 09/27/2024 7:49 AM EDT Body Mass Index 28.35 09/27/2024 7:49 AM EDT Plan of Treatment Health Maintenance Due Date Last Done Comments Depression Screening 1983 Adult BMI Follow Up Plan 1989 COVID-19 Vaccine (2023- 5 season) 2024 11/28/2020, 11/07/2020 Pap Smear 12/27/2024 12/27/2021, 12/08, 07/19/2019 Influenza Vaccine 02/07/2025 02/12/2024, , 06/18/2022, Additional history exists Adult BMI Screening 09/27/2025 09/27/2024 Tobacco Screening 09/27/2025 09/27/2024 DTaP,Tdap and Td Vaccines (2 - Td or Tdap) 12/22/2033 12/23/2023 Zoster (Shingles) Vaccine Completed 10/04/2021, 11/2021 Medical Devices Not on file Procedures Procedure Name Priority Date/Time Associated Diagnosis Comments PAP SMEAR Routine 12/27/2021 7:43 AM EDT Well woman exam with routine gynecological exam from Last 3 Months or Most Recently Relevant to Health Maintenance Results * Pap Smear (12/27/2021 7:43 AM EDT) 12/27/2021 7:43 AM EDT 12/27/2021 7:44 AM EDT Narrative COPATH - 01/02/2022 11:33 AM EDT [email or web address] [address] [place] [address] Gynecologic Cytology Consultation Patient Name:CODI CESAR:1970 (Age: 51)Gender:FTaken:12/27/2021eported:01/02/2022hysician(s):YULISSA GRANT M.D. ([phone])Copy To: Rec. #:[id number]: #[id number] Final Cytologic Interpretation ThinPrep Pap Test (Cervical): Satisfactory for evaluation. A transformation zone component is present. NEGATIVE FOR INTRAEPITHELIAL LESION OR MALIGNANCY. [facility] [place] Interpretation performed at [email or web address], [address] [place] [address], License number: [id number]. Electronically Signed Out By LAURA Kowalski(ASCP) Date of Last Menstrual Period: (None Given) Other Clinical Conditions: Z01.419 Manager Of Revenue exam wo/abn findings Source of Specimen ThinPrep Pap Test (Cervical) Thin Prep Pap (DINING SERVICES MANAGER) Fee Code(s): G0145 us Yulissa Grant MD PATHOLOGY/CYTOLOGY ORDER JUAN ANTONIO Final Result COPATH from Last 3 Months or Most Recently Relevant to Health Maintenance Insurance [facility] Care Teams Family Medicine Chair Relationship Specialty Start Date End Date Alexis Sal MD PCP - General Family Medicine 02/18/19
--- OUTSIDE RECORDS SUMMARY | 2024-12-07 09:08 | XMS_ITS | Encounter Summary ---
Author Organization [facility] Address [address] [place] [address] Care Team Providers Care Pediatric Psychologist Name Role Phone Alexis Sal MD Primary Care Provider [phone] Encounter Details Date Type Department Care Team (Late st Contact Info) Description 07/13/2023 Abstract [facility] [address] [place] [address] Fiona Winn NP Social History Tobacco Use Types Packs/Day Years Used Date Smoking Tobacco: Never Tobacco Cessation:Counseling Given: Not Answered [...] EDT Office Visit [facility] [address] [place] [phone] Clint Anand DO [address] [place] [address] documented as of this encounter Visit Diagnoses Not on filedocumented in this encounter Care Teams Pediatric Psychologist Relationship Specialty Start Date End Date Alexis Sal MD PCP - General 07/13/23 documented as of this encounter
--- OUTSIDE RECORDS SUMMARY | 2024-12-07 09:08 | XMS_ITS | Encounter Summary ---
Author Organization [employer] tem Address [id number] [address] [place] [address] Care Team Providers Care Tractor Sweeper Driver Name Role Phone Alexis Sal MD Primary Care Provider [phone] Encounter Details Date Type Department Care Team (Late st Contact Info) Description 04/07/2023 [facility]phone [facility] [address] [place] [phone] Bernarda Baker, ANUSHA Social History Tobacco Use Types Packs/Day Years [...] encounter Miscellaneous Notes * Telephone Encounter - Bernarda Baker RN - 04/07/2023 2:54 PM EDT Pt stopped by [facility] office to inform is now taking OTC Magnesium supplement 400mg QDon her own. Added to pt. List documented in this encounter Plan of Treatment Not on file documented as of this encounter Visit Diagnoses Not on filedocumented in this encounter Care Teams Tractor Sweeper Driver Relationship Specialty Start Date End Date Alexis Sal MD PCP - General Family Medicine 02/18/19 documented as of this encounter
--- OUTSIDE RECORDS SUMMARY | 2024-12-07 09:08 | XMS_ITS | Encounter Summary ---
Author Organization [facility] Address [id number] [address] [place] [address] Care Team Providers Care Tapper Shank Name Role Phone Alexis Sal MD Primary Care Provider [phone] Encounter Details Date Type Department Care Team (Late st Contact Info) Description 08/02/2021 Orders Only [facility] [address] [place] [phone] Gemma Elizabeth RN Pre-op testing (Primary Dx) Social History Tobacco Use Types Packs/Day Years [...] have Coronavirus / COVID-19? No / Unsure 08/02/2021 9:06 AM EST documented as of this encounter Plan of Treatment Not on file documented as of this encounter Procedures Procedure Name Priority Date/Time Associated Diagnosis Comments MULTIPLE LABS Routine 07/26/2021 LIPID PROFILE Routine 07/26/2021 documented in this encounter Results * SARS COV 2 (COVID-19) (08/07/2021 8:03 AM EST) Specimen Oropharyngeal 08/07/2021 2:59 PM EST SUNQUEST Sent to Testing to be performed at [facility]. 08/07/2021 2:59 PM EST SUNQUEST COVID-19 [facility] Report to Follow. 08/07/2021 2:59 PM EST SUNQUEST Nasopharyngeal structure / Unknown 08/07/2021 8:03 AM EST 08/07/2021 10:56 AM EST us Maxi Badillo MD MICROBIOLOGY - GENERAL ORDERA BLES Final Result Performing Organization Address [facility] Co de Phone Number SUNQUEST * Lipid profile (07/26/2021) External Cholesterol 207 MANUALLY TRANSCRIBED RESULTS External Cholesterol:Hdl 3.9 MANUALLY TRANSCRIBED RESULTS External Hdl Cholesterol 53 MANUALLY TRANSCRIBED RESULTS External Ldl (Calc) 121 MANUALLY TRANSCRIBED RESULTS External Triglycerides 165 MANUALLY TRANSCRIBED RESULTS External Very Low Lipoprotein 33 MANUALLY TRANSCRIBED RESULTS us Scanning Provider External LAB BLOOD ORDERABLES Edited Result - Final Performing Organization Address [facility] Co de Phone Number MANUALLY TRANSCRIBED RESULTS * Multiple labs (07/26/2021) us Scanning Provider External DE IMAGING Final Result Performing Organization Address [facility] de Phone Number MANUALLY TRANSCRIBED RESULTS documented in this encounter Visit Diagnoses Diagnosis Pre-op testing- Primary Unspecified pre-operative examination documented in this encounter Care Teams Tapper Shank Relationship Specialty Start Date End Date Alexis Sal MD PCP - General Family Medicine 02/18/19 documented as of this encounter
[2024-12-07 09:31] LABS: Hematocrit 36.4 % (36.0-48.0); Hemoglobin 12.2 g/dL (12.0-16.0); Immature Granulocytes Abs Auto 0.02 10^3/uL (0.00-0.03); Immature Granulocytes Pct Auto 0.3 % (0.0-0.5); Lymphocytes Absolute Auto 1.8 10^3/uL (1.2-3.8); Mean Corpuscular HGB Conc 33.5 g/dL (29.9-35.2); Mean Corpuscular Hemoglobin 30.3 pg (26.7-34.0); Mean Corpuscular Volume 90.3 fL (81.0-99.0); Platelet Count 247 10^3/uL (150-450); Red Blood Count 4.03 10^6/uL (4.20-5.40); White Blood Count 6.4 10^3/uL (4.0-11.0)
[2024-12-07 10:56] LABS: Alanine Aminotransferase 23 U/L (14-59); Albumin Globulin Ratio 1.2; Albumin Level 3.6 g/dL (3.4-5.0); Alkaline Phosphatase 58 U/L (46-116); Anion Gap 11.9; Aspartate Amino Transferase 21 U/L (15-37); Blood Urea Nitrogen 15.0 mg/dL (7.0-18.0); Calcium 8.7 mg/dL (8.5-10.1); Carbon Dioxide 28.3 mmol/L (21.0-32.0); Chloride 106 mmol/L (98-107); Cholesterol 128 mg/dL (<=200); Estimated GFR (African America >60 (>=60 mL/min/1.73m^2); Estimated GFR (Non-African Ame >60 (>=60 mL/min/1.73m^2); Free T3 2.95 pg/mL (2.18-3.98); Globulin 3.0 g/dL; Glucose 80 mg/dL (74-106); HDL Cholesterol 60 mg/dL (40-60); Potassium 4.2 mmol/L (3.5-5.1); Sodium 142 mmol/L (136-145); Thyroid Stimulating Hormone 1.673 uIU/mL (0.358-3.740); Total Protein 6.6 g/dL (6.4-8.2); Triglycerides 84 mg/dL (<=150); VLDL CHOLESTEROL 16.8 mg/dL
== END 2024-12-07 09:03 | disposition home or self-care (01) ==
LOC: LAB 09:05
PROVIDERS: PCP Family Medicine; Visit Provider Family Medicine
DX: Z00.00 Encounter for general adult medical examination without abnormal findings (principal)
CPT/HCPCS: 36415; 80053; 80061; 83036; 84436; 84443; 84481; 85025

== ENCOUNTER 2025-01-18 09:42 | Outpatient (REF) | payer OTHER, SELFPAY ==
--- OUTSIDE RECORDS SUMMARY | 2025-01-19 09:44 | XMS_ITS | Continuity of Care Document ---
Author Name [facility] Organization [facility] Care Team Providers Care Foundry Operator Name Role Phone [facility] Unavailable Unavailable Medications Combined list of outpatient medications from Department of Defense and Veterans Affairs facilities.Medications provided include 1) outpatient medications from the last 15 months, and 2) patient-reported medications. Medication Details Route Status Patient Instructions Prescription Expires Prescription Number Last Dispense Date Ordering Provider Order Date Order Qty Source CLINDAMYCIN PHOSPHATE (clindamyci n phosphate), 1 %, SOLUTION, TOPICAL, VIONA PHARMACEU, 60 ml BOTTLE Active [id number] 4 2023 60 Pharmac y Data Transac tion Service Facilit y FLUOCINOLON E ACETONIDE (fluocinolo ne acetonide), 0.01 %, SOLUTION, TOPICAL, ENCUBE ETHICALS, 60 ml BOTTLE Active [id number] 4 2023 60 Pharmac y Data Transac tion Service Facilit y INDOMETHACI N (INDOMETHAC IN), 50 MG, CAPSULE, ORAL, CAMBER PHARMACE, 100 ea. BOTTLE Active [id number] 4 2023 90 Pharmac y Data Transac tion Service Facilit y PREDNISONE (prednisone ), 10 MG, TABLET, ORAL, AUROBINDO PHARM, 100 ea. BOTTLE Active [id number] 4 2023 47 Pharmac y Data Transac tion Service Facilit y ZEPBOUND (tirzepatid e), 2.5 MG/0.5, PEN INJCTR, SUBCUT, ISSA [employer]MOND [employer] .5 ml SYRINGE Active [id number] 4 2023 2 Pharmac y Data Transac tion Service Facilit y ZEPBOUND (tirzepatid e), 5 MG/0.5ML, PEN INJCTR, SUBCUT, ISSA EDMOND [employer]., .5 ml SYRINGE Cancele d [id number] : 2023 0 Pharmac y Data Transac tion Service Facilit y ZEPBOUND (tirzepatid e), 5 MG/0.5ML, PEN INJCTR, SUBCUT, ISSA [employer]., .5 ml SYRINGE Active [id number] 4 2023 2 Pharmac y Data Transac tion Service Facilit y ZEPBOUND (tirzepatid e), 7.5 MG/0.5, PEN INJCTR, SUBCUT, ISSA [employer]., .5 ml SYRINGE Cancele d [id number] 4 [id number] : 2023 0 Pharmac y Data Transac tion Service Facilit y ZEPBOUND (tirzepatid e), 7.5 MG/0.5, PEN INJCTR, SUBCUT, ISSA [employer]., .5 ml SYRINGE Cancele d [id number] 4 [id number] : 2023 0 Pharmac y Data Transac tion Service Facilit y ZEPBOUND (tirzepatid e), 7.5 MG/0.5, PEN INJCTR, SUBCUT, ISSA [employer]., .5 ml SYRINGE Cancele d [id number] : 2023 0 Pharmac y Data Transac tion Service Facilit y ZEPBOUND (tirzepatid e), 7.5 MG/0.5, PEN INJCTR, SUBCUT, ISSA [employer]., .5 ml SYRINGE Cancele d [id number] : 2023 0 Pharmac y Data Transac tion Service Facilit y ZEPBOUND (tirzepatid e), 7.5 MG/0.5, PEN INJCTR, SUBCUT, ISSA [employer]D [employer]., .5 ml SYRINGE Cancele d [id number] : 2023 0 Pharmac y Data Transac tion Service Facilit y ZEPBOUND (tirzepatid e), 7.5 MG/0.5, PEN INJCTR, SUBCUT, ISSA [employer]., .5 ml SYRINGE Cancele d [id number] 4 [id number] : 2023 0 Pharmac y Data Transac tion Service Facilit y ZEPBOUND (tirzepatid e), 7.5 MG/0.5, PEN INJCTR, SUBCUT, ISSA [employer]D [employer]., .5 ml SYRINGE Cancele d [id number] : 2023 0 Pharmac y Data Transac tion Service Facilit y Immunizations Combined list of available immunizations from the Department of Defense and Veterans Affairs facilities. Immunization Series Date Given Administered By Site Reaction Lot Number CVX Code Drug Acquisition Editor Status Comments Source zoster recombinant 2021 SUZI FLORES () Not Given zoster recombina nt [facility] zoster recombinant 2021 SUZI FLORES () Not Given zoster recombina nt [facility] influenza, injectable, quadrivalent, preservative free 2020 SUZI FLORES () Not Given influenza , injectabl e, quadrival ent, preservat gonzález free [facility] zoster recombinant 2020 SUZI FLORES () Not Given zoster recombina nt [facility] COVID-19, mRNA, LNP-S, PF, 30 mcg/0.3 mL dose 2020 SUZI FLORES () Not Given COVID-19, mRNA, LNP-S, PF, 30 mcg/0.3 mL dose [facility] COVID-19, mRNA, LNP-S, PF, 30 mcg/0.3 mL dose 2020 SUZI FLORES () Not Given COVID-19, mRNA, LNP-S, PF, 30 mcg/0.3 mL dose [facility] Social History Combined list of available smoking, tobacco, and other social history from Department of Defense and Veterans Affairs facilities. Social History Type Response Date Comment Sour e This section is an empty social history section. DoD
--- OUTSIDE RECORDS SUMMARY | 2025-01-19 09:45 | XMS_ITS | Encounter Summary ---
Author Organization [employer] [employer] [facility] [employer] Address [id number] [address] [place] [address] Care Team Providers Care Rope Walker Name Role Phone Alexis Sal MD Primary Care Provider [phone] Reason for Visit * Reason Comments Med Refill Encounter Details Date Type Department Care Team (Late st Contact Info) Description 01/06/2025 Refill [facility] [address] [place] [phone] Corinne Torres, PA-C [address] [place] [address] Med Refill Social History Tobacco Use Types [...] encounter Miscellaneous Notes * Telephone Encounter - Elizabeth Pan CMA - 01/06/2025 3:09 AM EDT Edgar: 09/27/2024 Lipid: 04/29/2024-ABN documented in this encounter Plan of Treatment Upcoming Encounters Date Type Department Care Team (Late st Contact Info) Description 02/02/2025 1:15 PM EDT Office Visit [facility] [address] [place] [address] Karissa Alva MD [address] [place] [address] documented as of this encounter Visit Diagnoses Not on filedocumented in this encounter Care Teams Rope Walker Relationship Specialty Start Date End Date Alexis Sal MD PCP - General Family Medicine 02/18/19 documented as of this encounter
--- OUTSIDE RECORDS SUMMARY | 2025-01-19 09:45 | XMS_ITS | Clinical Summary ---
Author Organization [facility] Address [address] [place] [address] Care Team Providers Care Email Campaign Specialist Name Role Phone Alexis Sal MD Primary Care Provider [phone] Allergies No known active allergies Medications cetirizine [...] ( season) 2024 11/28/2020, 11/07/2020 Influenza Vaccine (#1) 2025 , 03/27/2021, 03/30/2020, Additional history exists Colonoscopy 05/16/2031 [...] to complete this topic Insurance Care Teams Email Campaign Specialist Relationship Specialty Start Date End Date Alexis Sal MD [address] [address] PCP - General 09/24/22
--- OUTSIDE RECORDS SUMMARY | 2025-01-19 09:45 | XMS_ITS | Clinical Summary ---
Author Organization [facility] Address [address] [place] [address] Care Team Providers Care Grain Elevator Man Name Role Phone Alexis Sal MD Primary Care Provider [phone] Allergies No known active allergies Medications buPROPion [...] mouth at bedtime 30 capsule 09/23/2024 Active pregabalin (Lyrica) 75 MG capsuleIndicati ons:S/P total knee arthroplasty, right Take 1 capsule (75 mg) by mouth Daily 30 capsule 1 12/09/2024 Active Active Problems Problem Noted Date Diagnosed Date Primary osteoarthritis of right knee 07/01/2024 Difficulty walking 07/01/2024 Acute postoperative pain of right knee Status post right knee replacement 07/01/2024 Encounters Date Type Department Care Team Description 01/12/2025 Telephone [facility] [address] [place] [phone] Clint Anand DO 12/27/2024 9:00 AM EDT Office Visit [facility] [address] [place] [phone] Clint Anand DO S/P total knee arthroplasty, right (Primary Dx) 12/27/2024 8:00 AM EDT Ancillary Procedure [facility] [address] [place] [phone] 12/27/2024 Travel 12/26/2024 Travel 12/09/2024 Orders Only [facility] [address] [place] [phone] Clint Anand DO S/P total knee arthroplasty, right (Primary Dx) 12/08/2024 Telephone [facility] [address] [place] [phone] Chelsi Bernard RN 10/26/2024 Telephone [facility] [address] [place] [address] Chelsi Bernard RN from Last 3 Months Family History Medical History Relation Name Comments Drug abuse Brother 1 Bony Jordan Muscular dystrophy Brother 1 Bony Jordan Suicidality Brother 2 Drug abuse Daughter Tierra Keen Alcohol abuse Father Mateusz Jordan Heart attack Father Mateusz Jordan Heart disease Father Mateusz Jordan Cancer Maternal Grandmother Estefany Kebede Diabetes Mother Laura Aviles Heart disease Mother Laura Aviles Hypertension Mother Laura Bartonenechristophe Stroke Mother Laura Bartonenel bleeding ulcer Mother Laura Bartonenel Cancer Mother's Sister Mary Ellen Stroke Paternal Grandmother Heart disease Sister Channing Jordan Stroke Sister Channing Jordan Relation Name Status Comments Brother 1 Bony Jordan Brother 2 Daughter Tierra Keen Alive Father Mateusz Jordan Maternal Grandfather Maternal [...] Temperature - - Respiratory Rate 16 11/19/2023 10:0 3 AM EDT Oxygen Saturation - - Inhaled Oxygen Concentration - - Weight 71.1 kg (156 lb 12.8 oz) 12/27/2024 9:03 AM EDT Height 157.5 cm (5' 2 ) 12/27/2024 9:03 AM EDT Body Mass Index 28.68 12/27/2024 9:03 AM EDT Plan of Treatment Upcoming Encounters Date Type Department Care Team (Late st Contact Info) Description 06/30/2025 9:00 AM EST Office Visit [facility] [address] [place] [phone] Clint Anand, DO [address] [place] [address] Health Maintenance Due Date Last Done Comments CT Colonography 1971 FIT-DNA 1971 FIT 1971 FOBT 1971 Sigmoidoscopy 1971 HPV/Cotest 2001 Mammogram 2011 Cervical Cancer Screening 07/19/2022 Pap Smear 07/19/2022 07/19/2019, 07/19/2019 Influenza Vaccine (#1) 2025 , 06/19/2022, 03/27/2021, Additional history exists Colonoscopy 05/16/2031 05/16/2021 Colorectal Cancer Screening 05/16/2031 Procedures Procedure Name Priority Date/Time Associated Diagnosis Comments XR KNEE 3 VIEWS RIGHT Routine 12/27/2024 7:52 AM EDT S/P total knee arthroplasty, right from Last 3 Months Results * XR knee 3 views right (12/27/2024 7:52 AM EDT) Anatomical Region Laterality Modality Lower Extremities, Knee Right [facility] Imaging Narrative 12/27/2024 5:13 PM EDT Imaging Result: Three views, bilateral PA weight-bearing/sunrise/lateral right knee, taken today and saved to the permanent medical record are reviewed. Prosthesis is unchanged in position and alignment. No signs of prosthetic wear or loosening. No periprosthetic fractures. Clint Anand DO IMG XR PROCEDURES Final Result from Last 3 Months Insurance Care Teams Grain Elevator Man Relationship Specialty Start Date End Date Alexis Sal MD PCP - General 07/13/23
--- OUTSIDE RECORDS SUMMARY | 2025-01-19 09:45 | XMS_ITS | Clinical Summary ---
Author Organization [facility] Address [address] [place] [address] Care Team Providers Care Plate Shop Helper Name Role Phone Alexis Sal MD Primary [...] Treatment Not on file Insurance Care Teams Plate Shop Helper Relationship Specialty Start Date End Date Alexis Sal MD PCP - General Family Medicine 08/13/11
--- OUTSIDE RECORDS SUMMARY | 2025-01-19 09:45 | XMS_ITS | Encounter Summary ---
Author Organization [facility] Address [address] [place] [address] Care Team Providers Care Puddler Pile Driving Name Role Phone Alexis Sal MD Primary Care Provider [phone] Encounter Details Date Type Department Care Team (Late st Contact Info) Description 06/30/2024 Clinisync Result Encounter [facility] External Department Unsolicited Clint Anand DO [address] [place] [address] Social History Tobacco Use Types Packs/Day Years [...] Visit [facility] [address] [facility] [place] [phone] Clint Anand DO [address] [place] [address] documented as of this encounter Procedures Procedure [...] DAP = na Procedure Note Radiology, Radiologist, - 06/30/2024 Exam Date/Time: 06/30/2024 11:22 EST [...] on filedocumented in this encounter Care Teams Puddler Pile Driving Relationship Specialty Start Date End Date Alexis Sal MD PCP - General 07/13/23 documented as of this encounter
--- OUTSIDE RECORDS SUMMARY | 2025-01-19 09:45 | XMS_ITS | Encounter Summary ---
Author Organization [facility] Address [id number] [address] [place] [address] Care Team Providers Care Wind Farm Engineer Name Role Phone Alexis Sal MD Primary Care Provider [phone] Encounter Details Date Type Department Care Team (Late st Contact Info) Description 09/02/2024 Orders Only [facility] [address] [place] [phone] External, Scanning Provider Social History Tobacco Use [...] EDT Office Visit [facility] [address] [place] [phone] Karissa Alva MD [address] [place] [address] documented as of this encounter Procedures Procedure [...] 8:25 AM EST) us Scanning Provider External PA IMAGING Final Result Performing Organization Address [facility] de Phone Number MANUALLY TRANSCRIBED RESULTS * ECG 12 lead (06/17/2024 8:24 AM EST) us Scanning Provider External ECG ORDERABLES Final Result Performing Organization Address [facility] de Phone Number MANUALLY TRANSCRIBED RESULTS documented in this encounter Visit Diagnoses Not on filedocumented in this encounter Care Teams Wind Farm Engineer Relationship Specialty Start Date End Date Alexis Sal MD PCP - General Family Medicine 02/18/19 documented as of this encounter
--- OUTSIDE RECORDS SUMMARY | 2025-01-19 09:45 | XMS_ITS | Encounter Summary ---
Author Organization [facility] Address [address] [place] [address] Care Team Providers Care Building Engineer Name Role Phone Alexis Sal MD Primary Care Provider [phone] Encounter Details Date Type Department Care Team (Late st Contact Info) Description 06/30/2024 Abstract [facility] [address] [place] [phone] Clint Anand DO [address] [place] [address] Social History Tobacco Use Types Packs/Day Years [...] 06/30/2025 9:00 AM EST Office Visit [facility] [address] [place] [address] Clint Anand, DO [address] [place] [address] documented as of this encounter Visit Diagnoses Not on filedocumented in this encounter Care Teams Building Engineer Relationship Specialty Start Date End Date Alexis Sal MD PCP - General 07/13/23 documented as of this encounter
--- OUTSIDE RECORDS SUMMARY | 2025-01-19 09:45 | XMS_ITS | Clinical Summary ---
Author Organization [employer] tem Address [id number] [address] [place] [address] Care Team Providers Care Rn Progressive Care Unit Name Role Phone Alexis Sal MD Primary Care Provider [phone] Allergies No known active allergies Medications cetirizine (ZyrTEC) 10 mg tablet Take 1 tablet (10 mg total) by mouth in the morning. Active gkwzxpxx-mujv-FP- calcium &mins (THERAGRAN-M) 9 mg iron-400 mcg tablet Take 1 tablet by mouth in the morning. Active pramipexole (MIRAPEX) 1 mg tablet Take 2 tablets (2 mg total) by mouth in the morning. Active buPROPion XL (WELLBUTRIN XL) 150 mg 24 hr tablet Take 1 tablet (150 mg total) by mouth in the morning. 02/18/20 20 Active FeroSuL 325 mg (65 mg iron) tablet Take 1 tablet (325 mg total) by mouth in the morning. 11/04/19 21 Active pantoprazole (PROTONIX) 40 mg EC tablet Take 1 tablet (40 mg total) by mouth in the morning. 05/31/20 20 Active cholecalciferol (VITAMIN D3) 1,000 units tablet Take 2 tablets (2,000 Units total) by mouth in the morning. Active coenzyme Q10 100 mg capsule Take 1 capsule (100 mg total) by mouth in the morning. 30 capsule 12/01/19 22 Active UNABLE TO FIND Eye promise 1 tablet daily Active tirzepatide, weight loss, (ZEPBOUND) 10 mg/0.5 mL solution Inject 10 mg under the skin every 7 days. Active fenofibrate micronized (LOFIBRA) 67 mg capsuleIndication s:Other hyperlipidemia,Hi gh triglycerides TAKE 1 TABLET BY MOUTH EVERY DAY IN THE MORNING BEFORE MEALS 90 capsule 3 10/21/19 25 Active rosuvastatin (CRESTOR) 20 mg tablet TAKE 1 TABLET IN THE EVENING 90 tablet 01/07/20 25 Active rosuvastatin (CRESTOR) 20 mg tablet TAKE 1 TABLET IN THE EVENING 90 tablet 3 12/22/19 24 025 Discontinued Active Problems Problem Noted Date Diagnosed Date Primary hypertension 06/05/2022 Dyslipidemia 06/05/2022 Family history of heart disease 08/02/2021 Essential hypertension 08/02/2021 Menopause 07/16/2021 Sleep apnea 02/09/2021 Hot flashes due to menopause 12/21/2020 Resolved Problems Problem Noted Date Diagnosed Date Resolved Date Obesity (BMI 30-39.9) 08/02/20212024 Shortness of breath 08/02/2021 01/13/20 24 Encounters Date Type Department Care Team Description 01/06/2025 Refill [facility] [address] [place] [phone] Corinne Torres PA-C Med Refill from Last 3 Months Family History Medical [...] 09/27/2024 7:49 AM EDT Plan of Treatment Upcoming Encounters Date Type Department Care Team (Late st Contact Info) Description 02/02/2025 1:15 PM EDT Office Visit [facility] [address] [place] [address] Karissa Alva MD [address] [place] [address] Health Maintenance Due Date Last Done Comments [...] Narrative COPATH - 01/02/2022 11:33 AM EDT [facility] [address] [place] [address] Gynecologic Cytology Consultation Patient Name:CODI CSEAR:1970 (Age: 51)Gender:FTaken:12/27/2021eported:01/02/2022hysician(s):YULISSA GRANT M.D. ([phone])Copy To: Rec. #:[id number]: #[id number] Final Cytologic Interpretation ThinPrep Pap Test (Cervical): Satisfactory for evaluation. A transformation zone component is present. NEGATIVE FOR INTRAEPITHELIAL LESION OR MALIGNANCY. [facility]/01/02/2022 Interpretation performed at [facility], [address] [place] [address], License number: [id number]. Electronically Signed Out By LAURA Kowalski(ASCP) Date of Last Menstrual Period: (None Given) Other Clinical Conditions: Z01.419 Video Coordinator exam wo/abn findings Source of Specimen ThinPrep Pap Test (Cervical) Thin Prep Pap (VICE PRESIDENT OF DEVELOPMENT) Fee Code(s): G0145 Yulissa Grant MD PATHOLOGY/CYTOLOGY ORDER JUAN ANTONIO Final Result COPATH from Last 3 Months or Most Recently Relevant to Health Maintenance Insurance [facility] Care Teams Rn Progressive Care Unit Relationship Specialty Start Date End Date Alexis Sal MD PCP - General Family Medicine 02/18/19
--- OUTSIDE RECORDS SUMMARY | 2025-01-19 09:45 | XMS_ITS | Clinical Summary ---
Author Organization [facility] Address [address], [address] [place] [address] Care Team Providers Care Trim Sawyer Name Role Phone Alexis Sal MD Primary Care Provider [phone] Allergies No known active allergies Medications cetirizine (ZYRTEC) 10 MG tablet 07/12/2019 Active gemfibrozil (LOPID) 600 MG tablet 06/28/2019 Active pramipexole (MIRAPEX) 0.25 MG tablet 05/28/2019 Active Multiple Vitamins-Iron (MULTI-VITAMIN/ IRON PO) Take by mouth Active PARoxetine (PAXIL) 20 MG tabletIndicatio ns:Menopausal symptom Take 1 tablet by mouth every morning 90 tablet 4 07/19/2019 Active azithromycin (ZITHROMAX) 250 MG tabletIndicatio ns:Acute frontal sinusitis, recurrence not specified Take 2 tabs (500 mg) on Day 1, and take 1 tab (250 mg) on days 2 through 5. 1 packet 07/19/2019 Active Family History Medical History Relation Name Comments Alcohol Abuse Father Heart Attack Father at age 56 High Blood Pressure Father High Cholesterol Father Diabetes Mother Heart Attack Mother High Blood Pressure Mother High Cholesterol Mother Osteoporosis Mother Relation Name Status Comments Father Mother Social History Tobacco Use Types Packs/Day Years Used Date Smoking Tobacco: Never Smokeless Tobacco: Never Alcohol Use Standard Drinks/Week Comments Yes 0 (1 standard drink = 0.6 oz pur e alcohol) social Comments No Sex and Gender Information Value Date Recorded Sex Assigned at Not on file Legal Sex Female 11:00 AM EST Gender Identity Not on file Sexual Orientation Not on file Last Filed Vital Signs Vital Sign Reading Time Taken Comments Blood Pressure 128/86 07/19/2019 11:07 AM EST Pulse - - Temperature - - Respiratory Rate - - Oxygen Saturation - - Inhaled Oxygen Concentration - - Weight 86.2 kg (190 lb) 07/19/2019 11:07 AM EST Height 157.5 cm (5' 2 ) 07/19/2019 11:07 AM EST Body Mass Index 34.75 07/19/2019 11:07 AM EST Plan of Treatment Not on file Care Teams Trim Sawyer Relationship Specialty Start Date End Date Alexis Sal MD [address] [place] [address] PCP - General Family Medicine 06/07/19
--- OUTSIDE RECORDS SUMMARY | 2025-01-19 09:45 | XMS_ITS | Encounter Summary ---
Author Organization [facility] Address [address] [place] [address] Care Team Providers Care Demand Planning Manager Name Role Phone Alexis Sal MD Primary Care Provider [phone] Encounter Details Date Type Department Care Team (Late st Contact Info) Description 06/17/2024 Clinisync Result Encounter [facility] External Department Unsolicited Clint Anand DO [address] [place] [address] Social History Tobacco Use Types Packs/Day Years [...] [facility] [address] [place] [phone] Clint Anand DO [address] [place] [address] documented as of this encounter Procedures Procedure [...] on filedocumented in this encounter Care Teams Demand Planning Manager Relationship Specialty Start Date End Date Alexis Sal MD PCP - General 07/13/23 documented as of this encounter
--- OUTSIDE RECORDS SUMMARY | 2025-01-19 09:46 | XMS_ITS | Clinical Summary ---
Author Organization [facility] Address [address] [place] [address] Phone Care Team Providers Care Store Cashier Name Role Phone Alexis Sal MD Primary Care Provider [phone] Encounters Date Type Department Care Team Description 11/04/2024 Transcribe Orders [facility] [address] [place] [address] Lemuel Jules Encounter for screening, unspecified (Primary [...] - 2023-2 5 season) 2024 Influenza Vaccine (#1) 2025 03/02/2009 HIB Vaccines Aged Out No longer eligi ble based on patient's age to complete this topic HPV Vaccines Aged Out No longer eligi ble based on patient's age to complete this topic Hepatitis A Vaccines Aged Out No long [...] Name Priority Date/Time Associated Diagnosis Comments CONVERTED FURNITURE FABRICATOR CYTOLOGY Routine 01/31/2011 12:00 AM EDT from Last 3 Months or Most Recently Relevant to Health Maintenance Results * CONVERTED FURNITURE FABRICATOR CYTOLOGY (01/31/2011 12:00 AM EDT) Pathology Report ADDENDUM Date of Procedure: 01/31/2011 Pathologist: [facility], Cytology Date Reported: 02/08/2011 Date Received: 01/31/2011 [...] performed by the Molecular Diagnostics Laboratory at [facility]. This specimen has been analyzed by the [employer] Imaging System ([employer] an automated imaging and review system, which assists the laboratory in evaluating cells on ThinPrep Pap tests. Following automated imaging, selected lugo from every slide were reviewed by a contract accountant and/or pathologist. Electronically Signed Out By [facility], Cytology//JARMANDO/ELEUTERIO By the signature on this report, the [...] PERFORMED BY THE MOLECULAR DIAGNOSTIC LABORATORY AT [facility], UNDER THE SUPERVISION OF DR. CECE FLORES MD. THE LAB IS CERTIFIED UNDER THE CLINICAL LABORATORY AMENDMENTS OF 1988 (CLIA-88) QUALIFIED TO PERFORM HIGH COMPLEXITY CLINICAL LABORATORY TESTING. Reference Range: Negative Electronically Signed Out By CECE FLORES MD/ELEUTERIO By the signature on this report, the individual or group listed as making the Final Interpretation/Diag nosis certifies that they have reviewed this case. [facility] Department of Pathology [address] [place] [address] COPATH CONVERTED FINAL DIAGNOSIS A. THINPREP PAP ECTOCERVICAL/ENDOCE RVICAL: Specimen adequacy: SATISFACTORY FOR EVALUATION. Quality Indicator: Endocervical/transf ormation zone component is present. Quality Indicator: Partially obscuring inflammation. General Categorization: NEGATIVE FOR INTRAEPITHELIAL LESION OR MALIGNANCY. Ancillary Testing: An addendum report follows containing the HPV test results performed by the Molecular Diagnostics Laboratory at [facility]. [facility] COPATH CONVERTED DIAGNOSIS COMMENT This specimen has been analyzed by the [employer] System ([employer] an automated imaging and review system, which assists the laboratory in evaluating cells on ThinPrep Pap tests. Following automated imaging, selected lugo from every slide were reviewed by a contract accountant and/or pathologist. [facility] COPATH CONVERTED ADDENDUM DIAGNOSIS SPECIMEN IS NEGATIVE [...] PERFORMED BY THE MOLECULAR DIAGNOSTIC LABORATORY AT [facility], UNDER THE SUPERVISION OF DR. CECE FLORES MD. THE LAB IS CERTIFIED UNDER THE CLINICAL LABORATORY AMENDMENTS OF 1988 (CLIA-88) QUALIFIED TO PERFORM HIGH COMPLEXITY CLINICAL LABORATORY TESTING. Reference Range: Negative [facility] COPATH CONVERTED FINAL REPORT PDF LINK TO COPY AND PASTE \[email or web address] [id number] [facility] TPP ECTO/ENDO 01/31/2011 01/31/2011 8:55 PM EDT us Honey Shin MD LAB CYTOLOGY ORDERABLES Final Result [facility] COPATH [address] [place] [address] from Last 3 Months or Most Recently Relevant to Health Maintenance Insurance [employer] Care Teams Store Cashier Relationship Specialty Start Date End Date Alexis Sal MD [address] [facility] [place] [address] PCP - General 02/02/09
--- OUTSIDE RECORDS SUMMARY | 2025-01-19 09:46 | XMS_ITS | Encounter Summary ---
Author Organization [facility] Address [address] [place] [address] Care Team Providers Care Screen Printer Name Role Phone Alexis Sal MD Primary Care Provider [phone] Encounter Details Date Type Department Care Team (Late st Contact Info) Description 12/09/2024 Orders Only [facility] [address] [place] [phone] Clint Anand DO [address] [place] [address] S/P total knee arthroplasty, right (Primary Dx) Social History Tobacco Use Types [...] 06/30/2025 9:00 AM EST Office Visit [facility] [address] [place] [phone] Clint Anand, DO [address] [place] [address] documented as of this encounter Visit Diagnoses Diagnosis S/P total knee arthroplasty, right- Primary documented in this encounter Care Teams Screen Printer Relationship Specialty Start Date End Date Alexis Sal MD PCP - General 07/13/23 documented as of this encounter
--- OUTSIDE RECORDS SUMMARY | 2025-01-19 09:46 | XMS_ITS | Encounter Summary ---
Author Organization [facility] Address [address] [place] [address] Care Team Providers Care Dough Mixer Operator Name Role Phone Alexis Sal MD Primary Care Provider [phone] Encounter Details Date Type Department Care Team (Late st Contact Info) Description 01/12/2025 Telephone [facility] [address] [place] [phone] Clint Anand DO [address] [place] [address] Social History Tobacco Use Types Packs/Day Years [...] on file documented as of this encounter Progress Notes * Radha Arroyo - 01/12/2025 10:16 AM EDT Romeo RA TKA 06/30/24 Patient states that she forgot to ask JAB some questions at her last appt: Patient states that her knee cap hurts when she is going down the stairs. Is this normal? Outside of knee when she is laying down feels like something is sticking out. She tried to describeit, but it feels strange. Is this normal? Patient has been walking at the [facility] and doing exercises from JAB and PT. documented in this encounter Miscellaneous Notes * Telephone Encounter - GABRIELLE Chambers - 2025 4:35 PM EDT I called and spoke to the patient and let her know documented in this encounter Plan of Treatment Upcoming Encounters Date Type Department Care Team (Late st Contact Info) Description 06/30/2025 9:00 AM EST Office Visit [facility] [address] [facility] [facility] [place] [phone] Clint Anand, [address] [place] [address] documented as of this encounter Visit Diagnoses Not on filedocumented in this encounter Care Teams Dough Mixer Operator Relationship Specialty Start Date End Date Alexis Sal MD PCP - General 07/13/23 documented as of this encounter
--- OUTSIDE RECORDS SUMMARY | 2025-01-19 09:46 | XMS_ITS | Encounter Summary ---
Author Organization [facility] tem Address [id number] [address] [place] [address] Care Team Providers Care Fried Cake Maker Name Role Phone Alexis Sal MD Primary Care Provider [phone] Encounter Details Date Type Department Care Team (Late st Contact Info) Description 08/08/2021 Orders Only [facility] [address] [place] [address] External, Scanning Provider Social History Tobacco Use [...] EDT Office Visit [facility] [address] [place] [address] Karissa Alva MD [address] [place] [address] documented as of this encounter Procedures Procedure Name Priority Date/Time Associated Diagnosis Comments ECG 12-LEAD Routine 07/10/2020 documented in this encounter Results * ECG 12 lead (07/10/2020) us Scanning Provider External ECG ORDERABLES Final Result MANUALLY TRANSCRIBED RESULTS documented in this encounter Visit Diagnoses Not on filedocumented in this encounter Care Teams Fried Cake Maker Relationship Specialty Start Date End Date Alexis Sal MD PCP - General Family Medicine 02/18/19 documented as of this encounter
--- OUTSIDE RECORDS SUMMARY | 2025-01-19 09:46 | XMS_ITS | Encounter Summary ---
Author Organization [email or web address] [facility] Address [id number] [address] [place] [address] Care Team Providers Care Publication Designer Name Role Phone Alexis Sal MD Primary Care Provider [phone] Reason for Visit * Reason Comments Med Refill Encounter Details Date Type Department Care Team (Late st Contact Info) Description 03/18/2023 Refill [facility] [address] [place] [phone] Sameer Morton, PAOz [address] [place] [address] Med Refill Social History Tobacco Use Types [...] EDT Office Visit [facility] [address] [place] [address] Karissa Alva MD [address] [address] [place] [address] documented as of this encounter Results * Magnesium (04/07/2023 8:15 AM EDT) Pathologist [facility] Magnesium 2.0 1.8 - 2.6 mg/dL 04/07/2023 1:24 PM EDT [facility] PLASMA 04/07/2023 8:15 AM EDT 04/07/2023 8:16 AM EDT Paulette Sommer COMPLIANCE AND CONTROL ANALYST-DARKROOM WORKER LAB BLOOD ORDERABLES Final Result [facility] [address] [place] [address] * Basic Metabolic Panel (04/07/2023 8:15 AM EDT) Sodium 138 134 - 146 mmol/L 04/07/2023 1:24 PM EDT [facility] Potassium, Bld 3.6 3.5 - 5.0 mmol/L 04/07/2023 1:24 PM EDT [facility] Chloride 99 98 - 109 mmol/L 04/07/2023 1:24 PM EDT [facility] CO2 32 22 - 32 mmol/L 04/07/2023 1:24 PM EDT [facility] Anion gap 7 5 - 15 mmol/L 04/07/2023 1:24 PM EDT [facility] BUN 15 5 - 23 mg/dL 04/07/2023 1:24 PM EDT [facility] Creatinine 0.91 0.40 - 1.00 mg/dL 04/07/2023 1:24 PM EDT [facility] Comment:METHOD TRACEABLE TO IDMS STANDARD Glucose 98 65 - 99 mg/dL 04/07/2023 1:24 PM EDT [facility] Calcium 8.8 8.5 - 10.5 mg/dL 04/07/2023 1:24 PM EDT [facility] eGFR (CKD-EPI)non-ra ce dependent 76 >59 ml/min/1.7 3sq.m 04/07/2023 1:24 PM EDT [facility] Comment: Reported eGFR is based on the CKD-EPI 2020 equation that does not use a race coefficient. PLASMA 04/07/2023 8:15 AM EDT 04/07/2023 8:16 AM EDT us Paulette Sommer COMPLIANCE AND CONTROL ANALYST-DARKROOM WORKER LAB BLOOD ORDERABLES Final Result SUNROJELIO [facility] [address] [place] [address] * (ABNORMAL) Lipid profile (04/07/2023 8:15 AM EDT) Cholesterol 148(L) 150 - 200 mg/dL 04/07/2023 1:24 PM EDT [facility] Triglycerides 206(H) 27 - 150 mg/dL 04/07/2023 1:24 PM EDT [facility] HDL Cholesterol 42 >39 mg/dL 1:24 PM EDT [facility] Comment: HDL <40 mg/dL - High Risk HDL > or = 40mg/dL- Desirable HDL >60 mg/dL - Negative Risk VLDL 41(H) 0 - 30 mg/dL 04/07/2023 1:24 PM EDT [facility] LDL (calc) 65 <130 mg/dL 04/07/2023 1:24 PM EDT [facility] Comment: LDL <100 mg/dL - Desirable LDL >160 mg/dL - High Risk Cholesterol:HDL Ratio 3.5 1.0 - 5.0 04/07/2023 1:24 PM EDT [facility] PLASMA 04/07/2023 8:15 AM EDT 04/07/2023 8:16 AM EDT us Paulette Sommer COMPLIANCE AND CONTROL ANALYST-DARKROOM WORKER LAB BLOOD ORDERABLES Final Result [facility] [address], [address] [place] [address] documented in this encounter Visit Diagnoses Diagnosis Medication management- Primary documented in this encounter Care Teams Publication Designer Relationship Specialty Start Date End Date Alexis Sal MD PCP - General Family Medicine 02/18/19 documented as of this encounter
--- OUTSIDE RECORDS SUMMARY | 2025-01-19 09:46 | XMS_ITS | Encounter Summary ---
Author Organization [facility] Address [address] [place] [address] Phone Care Team Providers Care Private Watchman Name Role Phone Alexis Sal MD Primary Care Provider [phone] Reason for Referral * Imaging (Routine) - Pending Review Specialty Diagnoses / Procedures Referred By Contac t Referred To Contact Radiology Diagnoses Encounter for screening, unspecified Mixed hyperlipidemia Essential (primary) hypertension Procedures CT cardiac scoring wo IV contrast Lemuel Jules fax: Referral ID Status Reason Start Date Expiration Date Visits Requested Visits Authorized [id number] Pending Review Perform Procedure 11/04/2024 11/04/2025 1 1 Encounter Details Date Type Department Care Team (Latest Contact Info) Description 11/04/2024 Transcribe Orders [facility] [address] [place] [address] Lemuel Jules Encounter for screening, unspecified (Primary [...] hypertension documented in this encounter Care Teams Private Watchman Relationship Specialty Start Date End Date Alexis Sal MD [address] [place] [address] PCP - General 02/02/09 documented as of this encounter
--- OUTSIDE RECORDS SUMMARY | 2025-01-19 09:46 | XMS_ITS | Encounter Summary ---
Author Organization [employer] Address [id number] [address] [place] [address] Care Team Providers Care Ship Pilot Dispatcher Name Role Phone Alexis Sal MD Primary Care Provider [phone] Encounter Details Date Type Department Care Team (Late st Contact Info) Description 04/07/2023 [facility]phone [facility] [address] [place] [phone] Bernarda Baker, ANUSHA Social History Tobacco Use [...] 04/07/2023 2:54 PM EDT Pt stopped by [place] office to inform is now taking OTC Magnesium supplement 400mg QDon her own. Added to pt. List documented in this encounter Plan of Treatment Upcoming Encounters Date Type Department Care Team (Late st Contact Info) Description 02/02/2025 1:15 PM EDT Office Visit [facility] [address] [place] [address] Karissa Alva MD [address] [place] [address] documented as of this encounter Visit Diagnoses Not on filedocumented in this encounter Care Teams Ship Pilot Dispatcher Relationship Specialty Start Date End Date Alexis Sal MD PCP - General Family Medicine 02/18/19 documented as of this encounter
--- OUTSIDE RECORDS SUMMARY | 2025-01-19 09:46 | XMS_ITS | Encounter Summary ---
Author Organization [employer] [facility] tem Address [id number] [address] [place] [address] Care Team Providers Care Squad Sergeant Name Role Phone Alexis Sal MD Primary Care Provider [phone] Encounter Details Date Type Department Care Team (Late st Contact Info) Description 08/02/2021 Orders Only [facility] [address] [place] [phone] Gemma Elizabeth RN Pre-op testing (Primary Dx) [...] EDT Office Visit [facility] [address] [place] [phone] Karissa Alva MD [address] [place] [address] documented as of this encounter Procedures Procedure [...] ORDERA BLES Final Result Performing Organization Address [facility] Co de Phone Number SUNQUEST [...] Edited Result - Final Performing Organization Address [facility]/ZIP Co de Phone Number MANUALLY TRANSCRIBED RESULTS * Multiple labs (07/26/2021) us Scanning Provider External [place] [facility] Final Result Performing Organization Address [facility] Co de Phone Number MANUALLY TRANSCRIBED RESULTS documented in this encounter Visit Diagnoses Diagnosis Pre-op testing- Primary Unspecified pre-operative examination documented in this encounter Care Teams Squad Sergeant Relationship Specialty Start Date End Date Alexis Sal MD PCP - General Family Medicine 02/18/19 documented as of this encounter
--- OUTSIDE RECORDS SUMMARY | 2025-01-19 09:46 | XMS_ITS | Encounter Summary ---
Author Organization [facility] Address [address] [place] [address] Care Team Providers Care Slicer Machine Operator Name Role Phone Alexis Sal MD Primary Care Provider [phone] Encounter Details Date Type Department Care Team (Late st Contact Info) Description 07/13/2023 Abstract [facility] [address] [place] [address] Fiona Winn NP Social History Tobacco Use [...] Visit [facility] [address] [facility] [phone] Clint Anand DO [address] [place] [address] documented as of this encounter Visit Diagnoses Not on filedocumented in this encounter Care Teams Slicer Machine Operator Relationship Specialty Start Date End Date Alexis Sal MD PCP - General 07/13/23 documented as of this encounter
--- OUTSIDE RECORDS SUMMARY | 2025-01-19 09:49 | XMS_ITS | CCD ---
Author Organization [facility] Care Team Providers Care Electrical Assembly Technician Name Role Phone SARAH BURKS Referring Unavailable CRISTIAN MUÑOZ Primary Care Unavailable [...] DR GRIGGS Consulting Unavailable HOY ., DR FOTSER Admitting Unavailable HOY ., DR FOSTER Attending Unavailable HOY ., DR FOSTER Primary Care Unavailable HOY ., DR FOSTER Consulting Unavailable CAMILA, DR JADA Matamoros Consulting Unavailable JOSE, DR [...] Unavailable HOY ., DR FOSTER Consulting Unavailable Mitchel Baeza Unavailable Megan Coats Unavailable MD Cristian Muñoz Primary Care Provider MD Sandra Jules Attending Provider DO Mitchel Baeza Attending Provider [phone] Cristian Muñoz MD Primary Care Provider MD Cristian Muñoz Primary Care Provider DO Mitchel Baeza Attending Provider ABILIO Florian Attending Provider [phone] MARISELA GARCIA Attending Unavailable MARISELA GARCIA Attending Unavailable MARISELA GARCIA Attending Unavailable KETAN FRANCIS Referring Unavailable NO FAMILY, PHYSICIAN Primary Care Provider Unava ilable DO Mookie Ospina Attending Provider MD Cristian Muñoz Primary Care Provider DARRON BOND Attending Unavailable CRISTIAN MUÑOZ Referring Unavailable CRISTIAN MUÑOZ Primary Care Unavailable NO FAMILY, PHYSICIAN Primary Care Provider Unava ilable MD Cristian Muñoz Primary Care Provider DO Mookie Ospina Attending Provider Cristian Muñoz Primary Care Physician Brown, Clint A Admitting Unavailable Brown, Clint A Attending Unavailable Brown, Clint A Referring Unavailable Brown, Clint A Admitting Unavailable Brown, Clint A Attending Unavailable Brown, Clint A Referring Unavailable Sunshine Ny Unavailable Unavailable Brown, DO Clint A Admitting Unavailable Brown, DO Clint A Attending Unavailable Brown, DO Clint A Referring Unavailable Brown, DO Clint A Admitting Unavailable Brown, DO Clint A Attending Unavailable Chuyita, DO Clint A Referring Unavailable Cristian Muñoz MD Primary Care Provider Cristian Muñoz MD Primary Care Provider Cristian Muñoz MD Primary Care Provider DEISY SIMMONS Referring Unavailable CRISTIAN MUÑOZ Primary Care Unavailable DEISY SIMMONS Referring Unavailable WANDA CRISTAIN M Primary Care Unavailable ZAHIRA TIM Attending Unavailable CRISTIAN MUÑOZ M Referring Unavailable CRISTIAN MUÑOZ M Primary Care Unavailable Mookie Ospina Admitting Unavailable Mookie Ospina Attending Unavailable Cristian Muñoz M Primary Care Unavailable Sandra Jules Admitting Unavailable Sandra Jules Attending Unavailable Cristian Muñoz Primary Care Unavailable Sandra Jules Attending Unavailable Cristian Muñoz Primary Care Unavailable Sandra Jules Admitting Unavailable Cristian Muñoz MD Primary Care Provider [phone] SIMI ARAGON Attending Unavailable CHUYITA, CLINT A Referring Unavailable SIMI ARAGON Attending Unavailable CHUYITA, CLINT A Referring Unavailable SIMI ARAGON Attending Unavailable BROWN, CLINT A Referring Unavailable BROWN, CLINT A Referring Unavailable BROWN, CLINT A Attending Unavailable SIMI ARAGON Attending Unavailable BROWN, CLINT A Referring Unavailable BROWN, CLINT A Referring Unavailable BROWN, CLINT A Attending Unavailable BROWN, CLINT A Referring Unavailable BROWN, CLINT A Referring Unavailable BROWN, CLINT A Attending Unavailable BROWN, CLINT A Referring Unavailable BROWN, CLINT A Referring Unavailable BROWN, CLINT A Attending Unavailable BROWN, CLINT A Referring Unavailable BROWN, CLINT A Attending Unavailable BROWN, CLINT A Referring Unavailable BROWN, CLINT A Attending Unavailable BROWN, CLINT A Referring Unavailable JADA CUNHA Attending Unavailable CHUYITA, CLINT A Referring Unavailable Cristian Muñoz MD Primary Care Provider [phone] Sandra Jules MD Attending Provider [phone] Attending Provider Unavailable Allergies Allergy Classification Reported Allergen(s) Allergy Type Date of Onset Reaction(s) Facility (3 sources) No Known Medication Allergies; Translations: [No Known Medication Allergies] Propensity to adverse reactions (disorder) [facility] Repository Medications Current Medications Medication Drug Class(es) Dates Sig (Normalized) Sig (Original) 0.5 ML semaglutide 0.5 MG/ML Auto-Injector [Wegovy] (3 sources) Start: 01-02-2023 inject 0.25 mg by subcutaneous injection every week Wegovy 0.25 MG/0.5ML 0.25 mg Subcutaneous Once weekly for 30 days Dec, Active 0.5 ML tirzepatide 20 MG/ML Auto-Injector [Zepbound] (2 sources) Start: 06-17-2024 Zepbound 10 mg/0.5 mL subcutaneous solution SubCutaneous, qWeek, , Refills(s) 0 Start Date: 06/17/24 Status: Ordered acetaminophen 325 mg oral tablet (17 sources) Start: 12-04-2023 End: 06-17-2024 take 1 tablet by mouth every six hours as needed for pain acetaminophen 325 mg / HYDROcodone bitartrate 5 mg oral tablet (15 sources) Opioid Agonist Start: 07-15-2024 End: 07-22-2024 take 1-2 tablets by mouth every four hours HYDROcodone-acetami nophen ([place]) 5-325 MG tablet Indications: S/P total knee arthroplasty, right Take 1-2 tablets by mouth every 4 (four) hours if needed (pain) for up to 7 days 40 tablet 07/15/2024 07/22/2024 Active Start: 12-04-2023 End: 03-08-2024 take 1 tablet by mouth every six hours as needed for pain Hydrocodone-Acetaminophen 5-325 mg table t Discontinued 1 TAB PO Q6H as needed for Pain 12 3 December 04, 2023 March 08, 2024 7:37am DO NOT RECONCILE UNTIL DOS 12/05/23 TO BE USED POST OP acetaminophen 325 mg / oxyCODONE hydrochloride 5 mg oral tablet (1 source) Opioid Agonist Start: 06-30-2024 Percocet 5 mg-325 mg oral tablet See Instructions, 40 tab(s), Refill(s) 0, 1-2 tab(s) Oral q4hr, [facility]/pharmacy #[id number], 159, cm, 06/18/24 7:16:00 EST, Height/Length Dosing, 77.5, kg, 06/18/24 7:16:00 EST, Weight Dosing Start Date: 06/30/24 Status: Ordered azithromycin 250 mg oral tablet (1 source) Macrolide Antimicrobial Start: 07-19-2019 azithromycin (ZITHROMAX) 250 MG tablet Indications: Acute frontal sinusitis, recurrence not specified Take 2 tabs (500 mg) on Day 1, and take 1 tab (250 mg) on days 2 through 5. 1 packet 0 07/19/2019 Active calcium polycarbophil 625 mg oral tablet (2 sources) Start: 06-17-2024 take 1 tablet by mouth once daily Fiber Tabs 625 mg, Oral, Daily, Refills(s) 0, Prophylaxis Start Date: 06/17/24 Status: Ordered cefdinir (1 source) Cephalosporin Antibacterial Start: 06-17-2024 cefdinir Oral, Refills(s) 0, Infection or prophylaxis for antibiotics Start Date: 06/17/24 Status: Ordered celecoxib 100 mg oral capsule (13 sources) Nonsteroidal Anti-inflammatory Drug Start: 01-18-2025 take 1 capsule by mouth twice daily Celecoxib 100 mg capsule Active 100 MG PO Twice daily January 18, 2025 12:00am Complies with drug therapy Start: 08-31-2024 End: 11-29-2024 take 1 capsule by mouth in the morning, then take 1 capsule by mouth at bedtime celecoxib (CeleBREX) 100 mg capsule Take 1 capsule (100 mg total) by mouth in the morning and 1 capsule (100 mg total) before bedtime. 08/31/2024 11/29/2024 Active Start: 06-30-2024 End: 01-18-2025 take 1 capsule by mouth once daily Celecoxib (Celebrex) 200 mg capsule Discontinued 200 MG PO Daily August 03, 2024 1:00am January 18, 2025 8:39am cholecalciferol 0.05 mg oral capsule (20 sources) Vitamin D Start: 07-30-2023 take 1 capsule by mo ut once daily in the morning take 2 tablets by mouth in the m orning cholecalciferol (VITAMIN D3) 1,000 units tablet Take 2 tablets (2,000 Units total) by mouth in the morning. Active cholecalciferol (Vitamin D-[address]) 25 MCG (1000 UT) tablet Take 2,000 Units by mouth in the morning. Active take 1 capsule by mo uth every twenty-four hours Vitamin D3 50 MCG (1999 UT) 1 capsule Or ally Once a day Active Coenzyme Q10 (CO Q 10 PO) (18 sources) Coenzyme Q10 (CO Q 10 PO) Take by mouth Active CoQ10 100 MG (10 sources) CoQ10 100 MG as directed Orally Active diclofenac sodium 75 mg delayed release oral tablet (16 sources) Nonsteroidal Anti-inflammatory Drug End: 09-28-19 take 1 tablet by mouth once daily as needed diclofenac (VOLTAREN) 75 mg EC tablet Take 1 tablet (75 mg total) by mouth daily as needed. 09/27/2024 Discontinued (Therapy completed) docusate sodium 100 mg oral capsule (1 source) Start: 06-30-19 take 1 capsule by mouth twice daily as needed for constipation Colace 100 mg Cap 100 mg = 1 cap(s), Oral, BID, PRN for constipation, # 20 cap(s), Refills(s) 0, Pharmacy: [facility]/pharmacy #[id number], 159, cm, 06/18/24 7:16:00 EST, Height/Length Dosing, 77.5, kg, 06/18/24 7:16:00 EST, Weight Dosing Start Date: 06/30/24 Status: Ordered Estradiol (2 sources) Estrogen Estradiol Active eye promise restore (13 sources) Start: 12-01-19 take 1 tablet by mouth once daily in the morning Start: 12-01-2023 take 1 tablet by vida th once daily in the morning eye promise restore Active 1 TAB PO Every morning November 30, 2023 11:00pm Start: 12-01-2023 take 1 tablet by vida th once daily in the morning eye promise restore Active 1 TAB PO Every morning December 01, 2023 12:00am Start: 12-01-2023 take 1 tablet by mouth once da jerardo eye promise restore Active 1 TAB PO Daily December 01, 2023 12:00am fenofibrate 67 mg oral capsule (20 sources) Peroxisome Proliferator Receptor alpha Agonist Start: 12-30-2023 End: 10-20-2024 FeroSul 325 mg oral tablet (2 sources) Start: 04-13-2021 take 1 tablet by mouth once daily FeroSul 325 mg oral tablet 325 mg = 1 tab(s), Oral, Daily, Refills(s) 0 Start Date: 04/13/21 Status: Ordered ferrous sulfate 325 mg oral tablet (20 sources) Start: 11-03-2020 take 1 tablet by mouth once daily in the morning take 1 tablet by mouth in the mo rning Ferrous Sulfate (IRON PO) Take 1 tablet by mouth in the morning. Active Fiber (18 sources) FIBER PO Take by mouth Active fluticasone propionate 0.05 mg/actuat metered dose nasal spray (8 sources) Corticosteroid End: take 1 spray(s) nasal route in the morning fluticasone propionate (FLONASE) 50 mcg/actuation nasal spray Administer 1 spray into each nostril in the morning. 09/27/2024 Discontinued (Therapy completed) gabapentin 300 mg oral capsule (14 sources) Anti-epileptic Agent Start: take 1 capsule by mouth at bedtime gabapentin (Neurontin) 300 MG capsule Indications: S/P total knee arthroplasty, right Take 1 capsule (300 mg) by mouth at bedtime 30 capsule 08/12/2024 Active Start: 06-30-2024 End: 07-14-2024 take 1 capsule by mouth three times daily gabapentin 300 mg Cap 300 mg = 1 cap(s), Oral, TID, X 14 day(s), # 42 cap(s), Refills(s) 0, Pharmacy: [facility]/pharmacy #[id number], 159, cm, 06/18/24 7:16:00 EST, Height/Length Dosing, 77.5, kg, 06/18/24 7:16:00 EST, Weight Dosing Start Date: 06/30/24 Stop Date: 07/14/24 Status: Ordered Start: 01-21-2023 End: 09-24-2023 take 1 capsule by mouth once daily gabapentin (NEURONTIN) 300 mg capsule Indications: Menopause Take 1 capsule (300 mg total) by mouth nightly. 30 capsule 11 01/21/2023 09/24/2023 Discontinued gemfibrozil 600 mg oral tablet (3 sources) Peroxisome Proliferator Receptor alpha Agonist Start: 06-28-2019 gemfibrozil (LOPID) 600 MG tablet Gemfibrozil Acti ve Iron (2 sources) Iron Active ketorolac tromethamine 10 mg oral tablet (13 sources) Nonsteroidal Anti-inflammatory Drug, Cyclooxygenase Inhibitor Start: End: 5 take 1 tablet by mouth every eight hours ketorolac 10 mg Tab 10 mg = 1 tab(s), Oral, q8hr, X 3 day(s), # 9 tab(s), Refills(s) 0, Pharmacy: [facility]/pharmacy #[id number], 159, cm, 06/18/24 7:16:00 EST, Height/Length Dosing, 77.5, kg, 06/18/24 7:16:00 EST, Weight Dosing Start Date: 06/30/24 Stop Date: 07/03/24 Status: Ordered Start: 05-31-2018 Toradol per 15 mg May, 60 mg magnesium oxide 400 mg oral tablet (18 sources) End: 09-27-2024 take 0.5 tablet by mouth in the morning magnesium oxide (MAGOX) 400 mg tablet Take 0.5 tablets (200 mg total) by mouth in the morning. 09/27/2024 Discontinued (Therapy completed) End: 06-17-2024 magnesium oxide (Mag-Ox) 400 MG tablet Take 200 mg by mouth in the morning. 06/17/2024 Discontinued (Therapy completed) take 1 tablet by vida th in the morning magnesium oxide (MAGOX) 400 mg tablet Take 1 tablet (400 mg total) by mouth in the morning. Active Multiple Vitamin (multivitamin) tablet (18 sources) take 1 tablet by vida th once daily Multiple Vitamin (multivitamin) tablet Take 1 tablet by mouth Daily Active Multiple Vitamins-Iron (MULTI-VITAMIN/IRON PO) (1 source) Multiple Vitamin s-Iron (MULTI-VITAMIN/IRON PO) Take by mouth 0 Active zvzmsyds-inxa-UT-calcium &mi ns (THERAGRAN-M) 9 mg iron-400 mcg tablet (15 sources) fiymzxmw-nrvo-ER -calcium &mins (THERAGRAN-M) 9 mg iron-400 mcg tablet Take 1 tablet by mouth in the morning. Active ngvqwyth-lnqi-QV -calcium &mins (THERAGRAN-M) 9 mg iron-400 mcg [...] Once a day Active Multivitamin Act gonzález Multivitamin tablet (3 sources) Start: 07-30-2023 take 1 tablet by vida th once daily in the morning Start: 07-30-2023 take 1 tablet by vida th once daily in the morning Multivitamin tablet Active 1 TAB PO Every morning July 30, 2023 12:00am pantoprazole 40 mg delayed release oral tablet (20 sources) Proton Pump Inhibitor Start: 05-31-2020 take 1 tablet by mouth once daily in the morning Protonix Active PARoxetine hydrochloride 20 mg oral [...] (eight) hours 03/22/2024 04/15/2024 Discontinued (Therapy completed) pregabalin 75 mg oral capsule (9 sources) Start: 12-09-2024 End: 02-07-2025 take 1 capsule by mouth once daily Pregabalin 75 mg capsule Active 75 MG PO Daily January 18, 2025 12:00am Complies with drug therapy Start: 09-23-2024 End: 10-23-2024 take 1 capsule by mouth at bedtime pregabalin (Lyrica) 75 MG capsule Indications: S/P total knee arthroplasty, right Take 1 capsule (75 mg) by mouth at bedtime 30 capsule 09/23/2024 Active Progesterone (2 sources) Progesterone Progesterone Act gonzález QUEtiapine 50 mg oral tablet (7 sources) Atypical Antipsychotic Start: 12-31-2022 End: 09-24-2023 QUEtiapine (SEROquel) 50 mg tablet 12/31/2022 09/24/2023 Discontinued rosuvastatin calcium 20 mg oral tablet (20 sources) HMG-CoA Reductase Inhibitor Start: 01-06-2025 rosuvastatin (CRESTOR) 20 mg tablet TAKE 1 TABLET IN THE EVENING 90 tablet 01/06/2025 Active Start: 09-19-2022 End: 01-06-2025 take 1 tablet by mouth once daily at bedtime Crestor Active sulfamethoxazole 800 mg / trimethoprim 160 mg oral tablet (1 source) Dihydrofolate Reductase Inhibitor Antibacterial, Sulfonamide Antimicrobial Start: 06-30-2024 End: 07-07-2024 Bactrim D.S. 800 mg-160 mg Tab 1 tab(s), Oral, BID for 7 day(s), 14 tab(s), Refill(s) 0, [facility]/pharmacy #[id number], 159, cm, 06/18/24 7:16:00 EST, Height/Length Dosing, 77.5, kg, 06/18/24 7:16:00 EST, Weight Dosing Start Date: 06/30/24 Stop Date: 07/07/24 Status: Ordered Tirzepatide (Weight Loss) (20 sources) Start: 01-18-2025 Tirzepatide (W eight Loss) 10 mg/0.5 mL pen injector Active 10 MG SUBCUT every week 2 January 18, 2025 8:55am Complies with drug therapy Start: 10-26-2024 End: 01-18-2025 Tirzepatide (Weight Loss) 10 mg/0.5 mL pen injector Discontinued 10 MG SUBCUT every week 2 October 26, 2024 9:01am January 18, 2025 8:55am Start: 10-26-2024 Start: 08-03-2024 End: 10-26-2024 Tirzepatide (Weight Loss) 10 mg/0.5 mL pen injector Discontinued 10 MG SUBCUT every week 2 August 03, 2024 10:17am October 26, 2024 9:01am Start: 08-03-2024 Tirzepatide (W eight Loss) 10 mg/0.5 mL pen injector Active 10 MG SUBCUT every week 2 August 03, 2024 9:17am Start: 05-20-2024 End: 08-03-2024 Tirzepatide (Weight Loss) 10 mg/0.5 mL pen injector Discontinued 10 MG SUBCUT every week 2 May 20, 2024 1:48pm August 03, 2024 10:17am Start: 05-20-2024 End: 08-03-2024 Tirzepatide (Weight Loss) 10 mg/0.5 mL pen injector Discontinued 10 MG SUBCUT every week 2 May 20, 2024 12:48pm August 03, 2024 9:17am Start: 05-10-2024 End: 05-20-2024 Tirzepatide (Weight Loss) 10 mg/0.5 mL pen injector Discontinued 10 MG SUBCUT every week 2 May 10, 2024 10:22am May 20, 2024 1:48pm Start: 05-10-2024 End: 05-20-2024 Tirzepatide (Weight Loss) 10 mg/0.5 mL pen injector Discontinued 10 MG SUBCUT every week 2 May 10, 2024 9:22am May 20, 2024 12:48pm Start: 04-30-2024 End: 05-10-2024 Tirzepatide (Weight Loss) 10 mg/0.5 mL pen injector Discontinued 10 MG SUBCUT every week 2 April 30, 2024 11:26am May 10, 2024 10:22am Start: 04-30-2024 End: 05-10-2024 Tirzepatide (Weight Loss) 10 mg/0.5 mL pen injector Discontinued 10 MG SUBCUT every week 2 April 30, 2024 10:26am May 10, 2024 9:22am Start: 03-12-2024 End: 04-30-2024 Tirzepatide (Weight Loss) 10 mg/0.5 mL pen injector Discontinued 10 MG SUBCUT every week 2 March 12, 2024 10:47am April 30, 2024 11:26am Start: 03-12-2024 End: 04-30-2024 Tirzepatide (Weight Loss) 10 mg/0.5 mL pen injector Discontinued 10 MG SUBCUT every week 2 March 12, 2024 9:47am April 30, 2024 10:26am Start: 03-12-2024 inject 10 mg by subc utaneous injection every week Tirzepatide (Weight Loss) Active 10 MG SUBCUT every week 2 March 12, 2024 10:47am Start: 02-26-2024 End: 03-12-2024 Tirzepatide (Weight Loss) 10 mg/0.5 mL pen injector Discontinued 10 MG SUBCUT every week 2 February 26, 2024 4:35pm March 12, 2024 10:48am Start: 02-26-2024 End: 03-12-2024 Tirzepatide (Weight Loss) 10 mg/0.5 mL pen injector Discontinued 10 MG SUBCUT every week 2 February 26, 2024 3:35pm March 12, 2024 9:48am Start: 02-26-2024 End: 03-12-2024 inject 10 mg by subcutaneous injection every week Tirzepatide (Weight Loss) Discontinued 10 MG SUBCUT every week February 26, 2024 4:35pm March 12, 2024 10:48am Start: 02-26-2024 inject 10 mg by subc utaneous injection every week Tirzepatide (Weight Loss) Active 10 MG SUBCUT every week February 26, 2024 4:35pm tirzepatide, weight loss, (ZEPBOUND) 10 mg/0.5 mL solution (1 source) tirzepatide, david ght loss, (ZEPBOUND) 10 mg/0.5 mL solution Inject 10 mg under the skin every 7 days. Active tirzepatide, weight loss, (ZEPBOUND) 10 mg/0.5 mL solution (2 sources) tirzepatide, david ght loss, (ZEPBOUND) 10 mg/0.5 mL solution Inject 10 mg under the skin every 7 days. Active tirzepatide, weight loss, (ZEPBOUND) 2.5 mg/0.5 mL pen injector (8 sources) End: 09-27-2024 tirzepatide, weight loss, (ZEPBOUND) 2.5 mg/0.5 mL pen injector Inject 2.5 mg under the skin every 7 days. 09/27/2024 Discontinued (Therapy completed) tirzepatide, david ght loss, (ZEPBOUND) 2.5 mg/0.5 mL pen injector Inject 2.5 mg under the skin every 7 days. Active ubiquinol 100 mg oral capsule (18 sources) Start: 11-24-2023 End: 04-15-2024 take 1 capsule by mouth once daily in the evening UNABLE TO FIND (3 sources) take 1 tablet into the eye(s) once daily UNABLE TO FIND Eye promise 1 tablet daily Active Vitamin D (2 sources) Start: 06-17-2024 Vitamin D Oral , Daily, Refills(s) 0, Prophylaxis Start Date: 06/17/24 Status: Ordered VITAMIN D PO (18 sources) VITAMIN D PO Mitch e by mouth Active Zepbound 10 MG/0.5ML solution auto-injector (20 sources) Start: 04-02-2024 Zepbound 10 MG /0.5ML solution auto-injector 04/02/2024 Active Start: 04-02-2024 inject 0.5 mL by sub cutaneous injection every week Zepbound 10 MG/0.5ML solution auto-injector INJECT 0.5 ML SUBCUTANEOUSLY EVERY WEEK FOR WEIGHT LOSS 04/02/2024 Active Completed/Discontinued Medications Medication Drug Class(es) Dates Sig (Normalized) Sig (Original) aspirin 81 mg delayed release oral tablet (18 sources) Platelet Aggregation Inhibitor, Nonsteroidal Anti-inflammatory Drug Start: 06-30-2024 End: 10-26-2024 take 1 tablet by mouth twice daily Aspirin 81 mg tablet,delayed release (DR/EC) Discontinued 81 MG PO Twice daily August 03, 2024 1:00am October 26, 2024 8:38am Start: 06-30-2024 End: 09-28-2024 take 1 tablet by mouth once daily aspirin 81 mg Oral EC Tab 81 mg = 1 tab(s), Oral, Daily, X 90 day(s), # 90 tab(s), Refills(s) 0, Pharmacy: [facility]/pharmacy #[id number], 159, cm, 06/18/24 7:16:00 EST, Height/Length Dosing, 77.5, kg, 06/18/24 7:16:00 EST, Weight Dosing Start Date: 06/30/24 Stop Date: 09/28/24 Status: Ordered Start: 12-04-2023 End: 01-19-2024 take 1 tablet by mouth twice daily Aspirin 81 mg tablet,chewable Discontinued 81 MG PO Twice daily December 04, 2023 12:00am January 19, 2024 10:54am DO NOT RECONCILE UNTIL DOS 12/05/23 TO BE USED POST OP 24 hr buPROPion hydrochloride 150 mg extended release oral tablet (20 sources) Aminoketone Start: 07-31-2023 End: 11-24-2023 take 1 mg by mouth once daily Bupropion Hcl Discontinued MG PO Daily July 31, 2023 9:23am November 24, 2023 10:42am Start: 07-30-2023 End: 07-31-2023 take 1 tablet by mouth every twenty-four hours Bupropion Hcl 150 mg tablet extended release 24 hr Discontinued MG PO July 30, 2023 12:00am July 31, 2023 8:25am Start: 07-30-2023 End: 07-31-2023 Bupropion Hcl Discontinued M G PO July 30, 2023 1:00am July 31, 2023 9:25am Start: 03-01-2020 End: 11-24-2023 take 1 tablet by mouth once daily Bupropion Hcl 150 mg tablet extended release 24 hr Discontinued MG PO Daily July 31, 2023 9:23am November 24, 2023 10:42am Start: 02-18-2020 End: 07-31-2023 take 1 tablet by mouth every twenty-four hours Bupropion Hcl 150 mg tablet extended release 24 hr Discontinued MG PO July 30, 2023 1:00am July 31, 2023 9:25am Wellbutrin 150mg qd Active Wellbutrin Activ e 12 hr buPROPion hydrochloride 90 mg / naltrexone hydrochloride 8 mg extended release oral tablet (5 sources) Opioid Antagonist, Aminoketone Start: 02-03-2023 Contrave 8-90 MG Week 1 take 1 tablet in the a.m., week 2 take 1 tablet in the a.m. and 1 tablet in the p.m., week 3 take 2 tablets in the a.m. and 1 tablet in the p.m., week 4 and beyond take 2 tablets in the a.m. and p.m. Orally As directed for 30 days Jan, Not-Taking Carboxymethylcellulose (13 sources) End: 07-15-2024 Carboxymethylcellulose Sodium (EQ RESTORE PLUS LUBRICANT EYE OP) Administer into affected eye(s) 07/15/2024 Discontinued (Therapy completed) Carboxymethylcel lulose Sodium (EQ RESTORE PLUS LUBRICANT EYE OP) Administer into affected eye(s) Active cephalexin 500 mg oral tablet (19 sources) Cephalosporin Antibacterial Start: 07-31-2023 End: 09-29-2023 take 2 tablets by mouth every twelve hours Cephalexin 500 mg tablet Discontinued 1000 MG PO Every 12 hours July 31, 2023 1:00am September 29, 2023 8:20am Start: 07-31-2023 End: 09-29-2023 take 1000 mg by mouth every twelve hours Cephalexin Discontinued 1000 MG PO Every 12 hours July 31, 2023 1:00am September 29, 2023 8:20am cetirizine hydrochloride 10 mg oral tablet (20 sources) Histamine-1 Receptor Antagonist Start: 07-12-2019 End: 07-31-2023 take 1 tablet by mouth once daily Cetirizine 10 mg tablet Discontinued 10 MG PO Daily July 30, 2023 1:00am July 31, 2023 9:25am Cetirizine HCl A ctive dexamethasone 6 mg oral tablet (2 sources) Corticosteroid Start: 06-20-2023 End: 04-15-2024 dexAMETHasone (Decadron) 6 MG tablet 06/20/2023 04/15/2024 Discontinued (Therapy completed) hydroCHLOROthiazide 12.5 mg / losartan potassium 50 mg oral tablet (20 sources) Thiazide Diuretic, Angiotensin 2 Receptor Susan Start: 06-12-2023 End: 06-17-2024 losartan-hydroCHLOR Othiazide (Hyzaar) 50-12.5 MG tablet 06/12/2023 06/17/2024 Discontinued (Therapy completed) Start: 08-02-2021 End: 10-26-2024 take 1 tablet by mouth once daily in the evening Losartan-Hydrochlorothiazide 50-12.5 mg tablet Discontinued 1 TAB PO Every evening July 30, 2023 1:00am October 26, 2024 8:38am (HYZAAR) indomethacin 50 mg oral capsule (16 sources) Nonsteroidal Anti-inflammatory Drug Start: 11-24-2023 End: 01-19-2024 take 1 capsule by mouth three times daily Indomethacin 50 mg capsule Discontinued 50 MG PO Three times daily November 24, 2023 12:00am January 19, 2024 10:55am Magnesium glycinate (16 sources) Start: 11-24-2023 End: 04-30-2024 take 2 capsules by mouth once daily in the evening magnesium glycinate Discontinued 2 CAP PO Every evening November 24, 2023 12:00am April 30, 2024 9:21am Start: 11-24-2023 End: 04-30-2024 take 2 capsules by mouth once daily in the evening magnesium glycinate Discontinued 2 CAP PO Every evening November 23, 2023 11:00pm April 30, 2024 8:21am Start: 11-24-2023 take 2 capsules by m outh once daily in the evening magnesium glycinate Active 2 CAP PO Every evening November 24, 2023 12:00am Start: 11-24-2023 take 2 capsules by m outh once daily magnesium glycinate Active 2 CAP PO Daily November 24, 2023 12:00am meloxicam 15 mg oral tablet (20 sources) Nonsteroidal Anti-inflammatory Drug Start: 06-05-2023 End: 04-15-2024 take 1 tablet by mouth once daily Meloxicam 15 mg tablet Discontinued 15 MG PO Daily July 31, 2023 1:00am December 01, 2023 7:40am End: 09-27-2024 take 1 tablet by mouth in the morning meloxicam (MOBIC) 7.5 mg tablet Take 1 tablet (7.5 mg total) by mouth in the morning. 09/27/2024 Discontinued (Therapy completed) 1 ml methylPREDNISolone acetate 40 mg/ml injection (2 sources) Corticosteroid Start: 07-14-2023 End: 07-14-2023 methylPREDNISolone acetate (DEPO-Medrol) injection 40 mg naproxen 500 mg oral tablet (15 sources) Nonsteroidal Anti-inflammatory Drug Start: 03-08-2024 End: 01-18-2025 take 1 tablet by mouth twice daily Naproxen 500 mg tablet Discontinued 500 MG PO Twice daily March 12, 2024 12:00am March 12, 2024 10:32am nitrofurantoin, macrocrystals 25 mg / nitrofurantoin, monohydrate 75 mg oral capsule (18 sources) Nitrofuran Antibacterial Start: 10-18-2023 End: 11-24-2023 [...] 19, 2024 10:56am Start: 07-31-2023 take 2 tablets by mo uth once daily in the evening Start: 07-31-2023 take 2 mg by mouth o nce daily in the evening Pramipexole Active 2 MG PO Every evening July 31, 2023 9:24am (MIRAPEX) Start: 03-01-2020 End: 07-31-2023 take 1 tablet by mouth once daily Pramipexole 1 mg tablet Discontinued 1 MG PO Daily July 30, 2023 1:00am July 31, 2023 9:25am (MIRAPEX) Start: 05-28-2019 pramipexole (M IRAPEX) 0.25 MG tablet Mirapex 2mg qd A ctive Mirapex Active [...] SUBCUT every week 2 November 20, 2023 6:27am November 24, 2023 10:04am Start: 11-20-2023 End: 11-24-2023 Tirzepatide (Weight Loss) (Zepbound) 5 mg/0.5 mL pen injector Discontinued 5 MG SUBCUT every week 2 November 20, 2023 7:27am November 24, 2023 11:04am Start: 11-20-2023 End: 11-20-2023 Tirzepatide (Weight Loss) (Zepbound) 5 mg/0.5 mL pen injector Discontinued 5 MG SUBCUT every week November 19, 2023 11:00pm November 20, 2023 6:28am Start: 11-20-2023 End: 11-20-2023 Tirzepatide (Weight Loss) (Zepbound) 5 mg/0.5 mL pen injector Discontinued 5 MG SUBCUT every week November 20, 2023 12:00am November 20, 2023 7:28am Start: 09-29-2023 End: 10-27-2023 Tirzepatide (Weight Loss) 5 mg/0.5 mL pen injector Discontinued 5 MG SUBCUT every week 2 September 29, 2023 8:35am October 27, 2023 2:26pm Start: 09-29-2023 End: 10-27-2023 Tirzepatide (Weight Loss) 5 mg/0.5 mL pen injector Discontinued 5 MG SUBCUT every week 2 September 29, 2023 7:35am October 27, 2023 1:26pm Start: 09-29-2023 End: 10-27-2023 inject 5 mg [...] SUBCUT every week 2 October 27, 2023 1:24pm November 20, 2023 6:24am Start: 10-27-2023 End: 11-20-2023 Tirzepatide (Weight Loss) [...] SUBCUT every week 2 September 22, 2023 2:32pm September 29, 2023 7:46am Start: 09-22-2023 End: 09-29-2023 Tirzepatide (Weight Loss) (Z epbound) 2.5 mg/0.5 mL pen injector Discontinued 2.5 MG SUBCUT every week 2 September 22, 2023 3:32pm September 29, 2023 8:46am Start: 08-21-2023 End: 09-22-2023 Tirzepatide (Weight Loss) (Z epbound) 2.5 mg/0.5 mL pen injector Discontinued 2.5 MG SUBCUT every week 2 August 21, 2023 1:37pm September 22, 2023 2:32pm Start: 08-21-2023 End: 09-22-2023 Tirzepatide (Weight Loss) (Z epbound) 2.5 mg/0.5 mL pen injector Discontinued 2.5 MG SUBCUT every week 2 August 21, 2023 2:37pm September 22, 2023 3:32pm Start: 07-31-2023 End: 08-21-2023 Tirzepatide (Weight Loss) (Z epbound) 2.5 mg/0.5 mL pen injector Discontinued 2.5 MG SUBCUT every week 2 July 31, 2023 12:00am August 21, 2023 1:37pm Start: 07-31-2023 End: 08-21-2023 Tirzepatide (Weight Loss) (Z epbound) 2.5 mg/0.5 mL pen injector Discontinued 2.5 MG SUBCUT every week 2 July 31, 2023 1:00am August 21, 2023 2:37pm Tirzepatide (Weight Loss) (20 sources) Start: 01-19-2024 End: 02-26-2024 Tirzepatide (Weight Loss) 7. 5 mg/0.5 mL pen injector Discontinued 7.5 MG SUBCUT every week 2 January 19, 2024 11:14am February 26, 2024 4:36pm Start: 01-19-2024 End: 02-26-2024 Tirzepatide (Weight Loss) 7. 5 mg/0.5 mL pen injector Discontinued 7.5 MG SUBCUT every week 2 January 19, 2024 10:14am February 26, 2024 3:36pm Start: 01-19-2024 End: 02-26-2024 inject 7.5 mg by subcutaneous injection every week Tirzepatide (Weight Loss) Discontinued 7.5 MG SUBCUT every week 2 January 19, 2024 11:14am February 26, 2024 4:36pm Start: 01-19-2024 inject 7.5 mg by sub cutaneous injection every week Tirzepatide (Weight Loss) Active 7.5 MG SUBCUT every week 2 January 19, 2024 11:14am Start: 12-01-2023 End: 01-19-2024 Tirzepatide (Weight Loss) 7. 5 mg/0.5 mL pen injector Discontinued 7.5 MG SUBCUT every week December 01, 2023 12:00am January 19, 2024 11:14am takes on Mondays Start: 12-01-2023 End: 01-19-2024 Tirzepatide (Weight Loss) 7. 5 mg/0.5 mL pen injector Discontinued 7.5 MG SUBCUT every week November 30, 2023 11:00pm January 19, 2024 10:14am takes on Mondays Start: 12-01-2023 End: 01-19-2024 inject 7.5 mg by subcutaneous injection every week Tirzepatide (Weight Loss) Discontinued 7.5 MG SUBCUT every week December 01, 2023 12:00am January 19, 2024 11:14am takes on Mondays Start: 12-01-2023 inject 7.5 mg by sub cutaneous injection every week Tirzepatide (Weight Loss) Active 7.5 MG SUBCUT every week December 01, 2023 12:00am takes on Mondays Start: 11-24-2023 End: 12-01-2023 Tirzepatide (Weight Loss) 7. 5 mg/0.5 mL pen injector Discontinued 7.5 MG SUBCUT every week 2 November 24, 2023 11:04am December 01, 2023 7:51am Start: 11-24-2023 End: 12-01-2023 Tirzepatide (Weight Loss) 7. 5 mg/0.5 mL pen injector Discontinued 7.5 MG SUBCUT every week 2 November 24, 2023 10:04am December 01, 2023 6:51am Start: 11-24-2023 End: 12-01-2023 inject 7.5 mg by subcutaneous injection every week Tirzepatide (Weight Loss) Discontinued 7.5 MG SUBCUT every week 2 November 24, 2023 11:04am December 01, 2023 7:51am Start: 11-24-2023 inject 7.5 mg by sub cutaneous injection every week Tirzepatide (Weight Loss) Active 7.5 MG SUBCUT every week 2 November 24, 2023 11:04am ubidecarenone 75 mg oral cap lakhwinder (20 sources) Start: 07-30-2023 End: 11-24-2023 Coenzyme Q10 (Ultra Coq10) 7 5 mg capsule Discontinued 75 MG PO Daily July 30, 2023 1:00am November 24, 2023 10:39am Start: 11-30-2021 take 1 capsule by mo uth once in the morning coenzyme Q10 100 mg capsule Take 1 capsule (100 mg total) by mouth in the morning. 30 capsule 11 11/30/2021 Active Problems Active Problems Problem Classification Problem Date Documented Date Episodic/Chronic Abdominal pain (2 sources) Epigastric pain 06-22-2020 Episodic Administrative/socia l admission (20 sources) Dietary counseling and surveillance; Translations: [Other specified counseling] Episodic Allergic reactions (2 sources) Eczema 03-01-2020 Episodic Anxiety disorders (19 sources) Mixed anxiety and depressive disorder; Translations: [Anxiety disorder, unspecified] 07-30-2023 Chronic Biliary tract disease (2 sources) Biliary calculus 06-24-2020 Episodic Disorders of lipid metabolism (20 sources) Dyslipidemia; Translations: [Hyperlipidemia, unspecified] Onset: 06-05-2022 Chronic Esophageal disorders (20 sources) Gastroesophageal reflux disease; Translations: [Gastro-esophageal reflux disease without esophagitis] Chronic Essential hypertension (20 sources) Essential hypertension; Translations: [Essential (primary) hypertension] Onset: 08-02-2021 Chronic Gastroduodenal ulcer (except hemorrhage) (2 sources) Gastric ulcer 05-25-2021 Chronic Glaucoma (2 sources) Open-angle glaucoma 03-01-2020 Chronic Joint disorders and dislocations; trauma-related (20 sources) Tear of meniscus of knee; Translations: [Unspecified tear of unspecified meniscus, current injury, right knee, initial encounter] 11-25-2023 Episodic Menopausal disorders (15 sources) Menopausal flushing; Translations: [Menopausal and female climacteric states] Onset: 12-21-2020 12-21-2020 Chronic Osteoarthritis (20 sources) Unilateral primary osteoarthritis, right knee; Translations: [Unspecified osteoarthritis, unspecified site] Onset: 06-20-2022 Chronic Other aftercare (9 sources) Surgical follow-up; Translations: [Encounter for removal of sutures] 12-18-2023 Episodic Other aftercare (15 sources) Encounter for removal of sutures; Translations: [Encounter for removal of sutures] 12-18-2023 Episodic Other aftercare (2 sources) Removal of sutures done; Translations: [Encounter for removal of sutures] 12-18-2023 Episodic Other and unspecified benign neoplasm (2 sources) Benign neoplasm of skin of abdomen 03-03-2020 Episodic Other connective tissue disease (20 sources) History of total knee arthroplasty; Translations: [Presence of right artificial knee joint] Onset: 07-01-2024 07-01-2024 Chronic Other hereditary and degenerative nervous system conditions (2 sources) Restless legs 03-01-2020 Chronic Other nervous system disorders (20 sources) Difficulty walking; Translations: [Difficulty in walking, not elsewhere classified] Onset: 07-01-2024 07-01-2024 Chronic Other non-traumatic joint disorders (1 source) Pain in right shoulder; Translations: [Pain in joint, shoulder region] 07-08-2023 Episodic Other non-traumatic joint disorders (1 source) Disorder of shoulder; Translations: [Other specified joint disorders, right shoulder] 07-14-2023 Episodic Other non-traumatic joint disorders (17 sources) Pain in right knee; Translations: [Right knee pain] 11-25-2023 Episodic Other nutritional; endocrine; and metabolic disorders (10 sources) Morbid obesity; Translations: [Morbid (severe) obesity due to excess calories] Chronic Other nutritional; endocrine; and metabolic disorders (20 sources) Metabolic syndrome X; Translations: [Metabolic syndrome] 07-30-2023 Chronic Other nutritional; endocrine; and metabolic disorders (4 sources) Morbid (severe) obesity due to excess calories Chronic Other nutritional; endocrine; and metabolic disorders [...] Chronic Other nutritional; endocrine; and metabolic disorders (10 sources) Obese class I; Translations: [Obesity, unspecified] 01-19-2024 Chronic Other nutritional; endocrine; and metabolic disorders (5 sources) Body mass index 25-29 - overweight; Translations: [Overweight] 09-27-2024 Episodic Other nutritional; endocrine; and metabolic disorders (1 source) Overweight; Translations: [Overweight] Onset: 09-27-2024 Episodic Other screening for suspected conditions (not mental disorders or infectious disease) (7 sources) Encounter for screening mammogram for malignant neoplasm of breast; Translations: [Patient encounter status] Onset: 01-18-2022 Episodic Other skin disorders (2 sources) Mass of neck 03-01-2020 Episodic Other skin disorders (2 sources) Skin tag 03-03-2020 Episodic Other upper respiratory infections (4 sources) Chronic sinusitis, unspecified; Translations: [Chronic maxillary sinusitis] Onset: 04-19-2022 Chronic Residual codes; unclassified (15 sources) Sleep apnea; Translations: [Sleep apnea, unspecified] Onset: 02-09-2021 02-09-2021 Chronic Residual codes; unclassified (12 sources) History of arthroscopy of knee joint; Translations: [Other specified postprocedural states] 12-04-2023 Episodic Sprains and strains (19 sources) Unspecified sprain of right lesser toe(s), initial encounter; Translations: [Sprain of medial collateral ligament of left knee, initial encounter] Onset: 12-15-2021 Resolved: 12-15-2021 Episodic Unclassified (4 sources) Patient encounter status 04-13-2021 Unclassified (3 sources) CONTACT W/AND (SUSP) EXPOS COVID-19; Translations: [CONTACT W/AND (SUSP) EXPOS COVID-19] Onset: 01-10-2022 Unclassified (1 source) Gynecologic Exam Onset: 2024 Urinary tract infections (9 sources) Acute cystitis with hematuria; Translations: [Acute cystitis] 10-18-2023 Episodic Past or Other Problems Problem Classification Problem Date Documented Date Episodic/Chronic Deficiency and other anemia (1 source) Anemia, unspecified; Translations: [ANEMIA UNSPECIFIED] Onset: 05-06-2022 Episodic Other aftercare (1 source) Patient encounter status; Translations: [Encounter for therapeutic drug level monitoring] 12-30-2023 Episodic Other aftercare (1 source) Encounter for therapeutic drug level monitoring; Translations: [Encounter for therapeutic drug level monitoring] Onset: 04-29-2024 Episodic Other connective tissue disease (1 source) Pain in right toe(s) Onset: 12-15-2021 Resolved: 12-15-2021 Episodic Other lower respiratory disease (16 sources) Dyspnea; Translations: [Shortness of breath] Onset: 08-02-2021 Resolved: 2024 08-02-2021 Episodic Other nervous system disorders (20 sources) Other acute postprocedural pain; Translations: [Pain in joint, lower leg] Onset: 07-01-2024 07-01-2024 Episodic Other non-traumatic joint disorders (1 source) Pain in right wrist Onset: 08-10-2021 Resolved: 08-10-2021 Episodic Other nutritional; endocrine; and metabolic disorders (17 sources) Body mass index 30+ - obesity; Translations: [Obesity, unspecified] Onset: 08-02-2021 Resolved: 09-27-2024 04-13-2021 Chronic Other skin disorders (4 sources) Alopecia (capitis) totalis; Translations: [ALOPECIA CAPITIS TOTALIS] Onset: 04-30-2022 Episodic Residual codes; unclassified (1 source) Family history of malignant neoplasm of breast; Translations: [FAMILY HX MALIG NEOPLASM OF BREAST] Onset: 01-21-2022 Episodic Residual codes; unclassified (20 sources) Other specified postprocedural states; Translations: [Other postprocedural status] Onset: 02-05-2024 12-18-2023 Episodic Residual codes; unclassified (15 sources) Menopause present; Translations: [Asymptomatic menopausal state] Onset: 07-16-2021 07-16-2021 Episodic Residual codes; unclassified (16 sources) Family history of cardiac disorder; Translations: [Family history of ischemic heart disease and other diseases of the circulatory system] Onset: 08-02-2021 08-02-2021 Episodic Residual codes; unclassified (1 source) Family history of ischemic heart disease and other diseases of the circulatory system; Translations: [Family history of ischemic heart disease and other diseases of the circulatory system] Onset: 08-02-2021 Episodic Unclassified (1 source) CONTACT W/AND (SUSP) EXPOS COVID-19; Translations: [CONTACT W/AND (SUSP) EXPOS COVID-19] Onset: 01-07-2022 Results Test Name Value Interpretation Reference Range Facility XR Knee - right 3 [facility] Result: Three views, bilateral PA weight-bearing/sunrise/lat eral right knee, taken today and saved to the permanent medical record are reviewed. Prosthesis is unchanged in position and alignment. No signs of prosthetic wear or loosening. No periprosthetic fractures. [facility] Study observation (narrative) [facility] Apolipoprotein BOrdered By: Sandra Jules on 11-25-2024 Apolipoprotein B [Mass/Vol] 73 mg/dL <90 [facility] Comment on above: Result Comment: [place] < 90 Borderline High 90 - 99 High 100 - 130 Very High >130 ASCVD RISK THERAPEUTIC TARGET CATEGORY APO B (mg/dL) Very High Risk <80 (if extreme risk <70) High Risk <90 Moderate Risk <90 Performed at: [facility] [address] [id number] Electrocardiographic Technician: Yolanda Estrada MD, Phone: [phone] PERFORMED BY: [address] [place] [address] PATHOLOGIST TIMBER SPRINKLER JOHN LOBATO M.D. Performed By: #### H SCRP, LIPID #### [address] [place] [address] [place] #### LIPA, APOB #### [facility] , Desirable < 90 Emir woodard High 90 - 99 High 100 - 130 Very High >130 ASCVD RISK THERAPEUTIC TARGET CATEGORY APO B (mg/dL) Very High Risk <80 (if extreme risk <70) High Risk <90 Moderate Risk <90Performed at: - [facility] [address] [id number] Director: Yolanda Estrada MD, Phone: [phone] C reactive protein [Mass/vol ume] in Serum or Plasma by High sensitivity methodOrdered By: Sandra Jules on 11-25-2024 CRP High sensitivity method [Mass/Vol] 1.6 mg/L High 0.0-0.9 [facility] Comment on above: Cardiovascular Risk Classification (AHA/CDC)hsCRP < 1.0 mg/l low relative risk for CVDhsCRP 1.0-3.0 mg/l average relative risk for CVDhsCRP > 3.0 mg/l high relative risk for CVDhsCRP > 7.5 mg/l active inflammation*Two results two weeks apart and averaged provide a morestable estimate of hsCRP level.*hsCRP levels > 7.5 mg/l may suggest infection that canlimit the use of this marker for estimation of CVD risk. CT heart calcium score woon 11-25-2024 CT heart calcium score wo [facility] [place] [address] [place], [place] [id number] CT Scan Report Signed Patient: Carly Cesar MR#: [id number] : 1970 Acct:[id number] Age/Sex: 54 / F ADM Date: 11/25/24 Loc: CT Room: Type: [facility] Attending Dr: Sandra Jules MD Copies to: Sandra Jules MD Ordering Provider: Sandra Jules MD Date of Service: 11/25/24 CT/CT heart calcium score wo: Z13.9 - Encounter for screening, unspecified CT heart calcium score w/o contrast REASON FOR EXAM: Family heart disease. TECHNIQUE: Prospective gated imaging of the heart were obtained for calcium evaluation of the coronary arteries. Agatston score was calculated. The CT exam was performed using one or more the following dose reduction techniques: Automated exposure control, adjustment of the MA and/or Kv according to patient size, or use of the iterative reconstruction technique. COMPARISON:None FINDINGS: LEFT MAIN: 0 LEFT ANTERIOR DESCENDIN CIRCUMFLEX: 0 RIGHT CORONARY ARTERY: 0 TOTAL AGATSTON CALCIUM SCORE: 0 This calcium score places the patient at the 0th percentile. EXTRACARDIAC STRUCTURES: No evidence of mediastinal or hilar lymphadenopathy. No pericardial effusion. Visualized lungs demonstrate no acute process. No lung nodule is seen. Limited images of the upper abdomen demonstrate no acute findings. CT/CT heart calcium score wo IMPRESSION: No significant extracardiac CT findings. CALCIUM SCORE INTERPRETATION (0) No identifiable atherosclerotic plaque. Very low cardiovascular disease risk. Less then 5% chance of presence of coronary artery disease. Source: August 2017 - Coronary artery calcium data and reporting system. An expert consensus document of the Society of Cardiovascular Computed Tomography) Impression dictated by: Rj Soriano Jr., D.O. 11/25/2024 11:08 AM Dictation Location: [place] [address] Transcribed By: KP 11/25/24 1108 Dictated By: Rj Soriano Jr, DO 11/25/24 1058 Signed By: 11/25/24 1108 Normal [facility] Cholesterol in LDL Calc [Mas s/Vol]Ordered By: Sandra Jules on 11-25-2024 Cholesterol in LDL [Mass/Vol] 76 mg/dL 0-100 [facility] Comment on above: LDL ATP III CLASSIFI CATIONLDL less than 100 mg/dL OptimalLDL 100-129 mg/dL Near or above optimalLDL 130-159 mg/dL Borderline highLDL 160-189 mg/dL HighLDL greater than 189 mg/dL Very high Cholesterol in VLDL Calc [Ma ss/Vol]Ordered By: Sandra Jules on 11-25-2024 Cholesterol in VLDL [Mass/Vol] 26 mg/dL [facility] High Sensitive CRPon 025 High Sensitive CRP 1.6 mg/L High 0.0-0.[address] [facility] Comment on above: Result Comment: Card iovascular Risk Classification (AHA/CDC) hsCRP < 1.0 mg/l low relative risk for CVD hsCRP 1.0-3.0 mg/l average relative risk for CVD hsCRP > 3.0 mg/l high relative risk for CVD hsCRP > 7.5 mg/l active inflammation* Two results two weeks apart and averaged provide a more stable estimate of hsCRP level. *hsCRP levels > 7.5 mg/l may suggest infection that can limit the use of this marker for estimation of CVD risk. PERFORMED BY: [place] [address] PATHOLOGIST TIMBER SPRINKLER JOHN LOBATO M.D. Performed By: #### H SCRP, LIPID #### [address] #### LIPA, APOB #### [facility] , Lipid PanelOrdered By: Guillermo Jules on 11-25-2024 Cholesterol [Mass/Vol] 159 mg/dL 140-200 [facility] Comment on above: Result Comment: Chol less than 200 mg/dl low risk Chol 201-239 mg/dl borderline risk Chol 240 mg/dl and greater high risk Performed By: #### H SCRP, LIPID #### [place] [address] [place] #### LIPA, APOB #### [facility] , Chol less than 200 m g/dl low riskChol 201-239 mg/dl borderline riskChol 240 mg/dl and greater high risk Cholesterol in HDL [Mass/Vol] 56 mg/dL - [facility] Comment on above: Result Comment: HDL CHOL ATP-III CLASSIFICATION Cardiovascular Risk HDL > or equal to 60 mg/dL LOW HDL < 40 mg/dL HIGH Performed By: #### H SCRP, LIPID #### [place] [address] [place] #### LIPA, APOB #### [facility] , HDL CHOL ATP-III CLA SSIFICATION Cardiovascular RiskHDL > or equal to 60 mg/dL LOWHDL < 40 mg/dL HIGH Cholesterol.total/Cho lesterol in HDL [Mass ratio] 2.8 {ratio} <5.0 [facility] Comment on above: Result Comment: PERF ORMED BY: [place] [address] PATHOLOGIST TIMBER SPRINKLER JOHN LOBATO M.D. Performed By: #### H SCRP, LIPID #### [facility] [address] [place] [address] [place] #### LIPA, APOB #### [facility] , Lipid Panelon 11-25-2024 LDL Cholesterol,Calculate d 76 mg/dL Normal 0-100 [facility] Comment on above: Result Comment: LDL ATP III CLASSIFICATION LDL less than 100 mg/dL Optimal LDL 100-129 mg/dL Near or above optimal LDL 130-159 mg/dL Borderline high LDL 160-189 mg/dL High LDL greater than 189 mg/dL Very high Performed By: #### H SCRP, LIPID #### [place] [address] [place] #### LIPA, APOB #### [facility] , Triglyceride w/Reflex 134 mg/dL Normal 0-149 [facility] Comment on above: Result Comment: TRIG ATP III CLASSIFICATION TRIG less than 150 mg/dL Normal TRIG 150-199 mg/dL Borderline high TRIG 200-500 mg/dL High TRIG greater than 500 mg/dL Very high Standard traceable to the Center for Disease Conrtrol and Prevention (CDC) test method. Performed By: #### H SCRP, LIPID #### [facility] [address] [place] [address] [place] #### LIPA, APOB #### [facility] , VLDL CHOLESTEROL 26 mg/dL Normal [facility] Comment on above: Performed By: #### H SCRP, LIPID #### [facility] [address] [place] [address] [place] #### LIPA, APOB #### [facility] , Lipoprotein (a)on 11-25-2024 Lipoprotein a [Mass/Vol] 330.9 mg/dL Normal <75.0 [facility] Comment on above: Result Comment: Resu lts confirmed on dilution. This test was developed and its performance characteristics determined by [employer]. It has not been cleared or approved by the Food and Drug Administration. Note: Values greater than or equal to 75.0 nmol/L may indicate an independent risk factor for CHD, but must be evaluated with caution when applied to non- populations due to the influence of genetic factors on Lp(a) across ethnicities. Performed at: [facility] [address] [place], [place] [id number] Electrocardiographic Technician: Christopher Narvaez PhD, Phone: [phone] Performed By: #### H SCRP, LIPID #### [address] #### LIPA, APOB #### [facility] , Serum or plasma lipoprotein a measurement (moles/volume)Ordered By: Sandra Jules on 11-25-2024 Lipoprotein a [Moles/Vol] 330.9 nmol/L High <75.0 [facility] Comment on above: Results confirmed on dilution.This test was developed and its performance characteristicsdetermined by [employer]. It has not been cleared orapproved by the Food and Drug Administration.Note: Values greater than or equal to 75.0 nmol/L may indicate an independent risk factor for CHD, but must be evaluated with caution when applied to non- populations due to the influence of genetic factors on Lp(a) across ethnicities.Performed at: [facility] [id number] [place] [id number] Director: Christopher Narvaez PhD, Phone: [phone] Triglyceride [Mass/volume] i n Serum or PlasmaOrdered By: Sandra Jules on 11-25-2024 Triglyceride [Mass/Vol] 134 mg/dL 0-149 [facility] Comment on above: TRIG ATP III CLASSIF ICATIONTRIG less than 150 mg/dL NormalTRIG 150-199 mg/dL Borderline highTRIG 200-500 mg/dL High TRIG greater than 500 mg/dL Very highStandard traceable to the [facility] Disease Conrt[facility] and Prevention ([facility]) test method. XR Knee - right 3 [facility] Result: Three views, bilateral PA weight-bearing/sunrise/lat eral right knee, taken today and saved to the permanent medical record are reviewed. Prosthesis is unchanged in position and alignment. No signs of prosthetic wear or loosening. No periprosthetic fractures. [facility] Rad[facility] Study observation (narrative) [facility] XR Knee - right 3 [facility] Result: Three views, bilateral PA weight-bearing/sunrise/lat eral right knee, taken today and saved to the permanent medical record are reviewed. Prosthesis is unchanged in position and alignment. No signs of prosthetic wear or loosening. No periprosthetic fractures. [facility] XR Knee - right 3 [facility] Study observation (narrative) [facility] Surgical Pathology Reporton 07-05-2024 Surgical Pathology Report [address] [address]- Surgical Pathology Report Collected Date/Time: 06/30/2024 09:47 EST Pathologist: Stephen KING PhD, Asya Nuñez Received Date/Time: 06/30/2024 11:07 EST Clint Boogie DO, DO, Jason A 07 Surgical Pathology Report - 07/05/2024 10:30 EST - Auth (Verified) Final Diagnosis RIGHT KNEE BONE AND SOFT TISSUE, ARTHROPLASTY: - BONE CARTILAGE WITH DEGENERATIVE REMODELING CHANGES, CONSISTENT WITH DEGENERATIVE OSTEOARTHRITIS. - BENIGN SYNOVIAL SOFT TISSUE. (Electronic Signature) Asya Mitchell MD PhD 07/05/2024 10:30 Clinical Information Right knee osteoarthritis Pre-Op Diagnosis: Right knee osteoarthritis Procedure: Robot assisted total knee arthroplasty Post-Op Diagnosis: Advanced degenerative osteoarthrosis, right knee Specimen(s) Received Right knee bone and soft tissue Gross Description Received in formalin labeled with patient name, number, and right knee bone and soft tissue. The specimen consists of an assortment of fragments of yellowish-white fibrofatty tissue and osseous tissue which in aggregate measure 9.4 x 9 x 3.5 cm. Among the segments is a recognizable tibial plateau and crescent-shaped meniscal fibrocartilage. The osseous segments are in part covered by articular surface which is thin and rough with osteophyte formation present. Spot Welder portion is submitted in two cassettes: 1 - Soft tissue 2 - Bone after decalcification (DC) DC:[facility] Microscopic Description Microscopic examination performed unless gross only specified. This report was transcribed using voice recognition technology and might contain unintended computerized straight line edger errors. Normal [facility] Comment on above: Performed By: #### [id number] #### [facility] Laboratory [address] [place] [address] Main OR Intraoperative Recor don 07-01-2024 Main OR Intraoperative Record Main OR Intraoperative Record IntraOp Document Type FT Summary Primary Physician: Clint Boogie DO Finalized Date/Time: 07/01/24 14:55:04 Pt. Name: CARLY CESAR/Sex: 1970 Female Med Rec #: [id number] Physician: Clint Boogie DO Financial #: [id number] Pt. Type: A Room/Bed: [place] [address] Admit/Disch: 06/30/24 06:24:47 - 06/30/24 15:05:00 Institution: Case Times FT Entry 1 Patient Times In Room 06/30/24 08:53:00 Out Room 06/30/24 10:54:00 Procedure Times Start 06/30/24 09:33:00 Stop 06/30/24 10:51:00 Anesthesia Times Start 06/30/24 08:53:00 Stop 06/30/24 10:54:00 Block Timeout w/ 06/30/24 08:05:00 Anesthesia Last Modified By: Liz Valencia RN 06/30/24 10:54:29 General Comments: ULTRASOUND GUIDED NERVE BLOCK PERFORMED BY DR. FLOR WITH ANUSHA MERCADO ASSISTING, HEART RATE 86BPM, SPO2 97% RA, PATIENT TOLERATED WELL. ANUSHA STANFORD 07/01/24 Chart opened to review and send charges [facility] Case Attendance FT Entry 1 Entry 2 Entry 3 Case Attendee Arline Art CRNA, DO, Jason A Ott RN, Leann E Role Performed JIGAR Surgeon - Primary Master Sonar Technician - Primary Time In 06/30/24 08:53:00 06/30/24 09:26:00 06/30/24 09:01:00 Time Out 06/30/24 10:54:00 06/30/24 10:42:00 06/30/24 10:54:00 Procedure KNEE TOTAL ROBOT KNEE TOTAL ROBOT KNEE TOTAL ROBOT ARTHROPLASTY(Right) ARTHROPLASTY(Right) ARTHROPLASTY(Right) Comments Last Modified By: Gomez LEAD CASTER, Amy Valencia RN, Liz Valencia RN, Liz Streeter 07/01/24 14:53:28 06/30/24 10:54:32 06/30/24 10:54:32 Entry 4 Entry 5 Entry 6 Case Attendee Dylan RN, CNOR, Laurie Agosto LEAD CASTER, Freya Mullins LEAD CASTER, Maurilio Wakefield Role Performed Master Sonar Technician - Primary LEAD CASTER/SA Scrub - Primary Time In 06/30/24 09:01:00 06/30/24 08:53:00 06/30/24 08:53:00 Time Out 06/30/24 10:54:00 06/30/24 10:54:00 06/30/24 10:46:00 Procedure KNEE TOTAL ROBOT KNEE TOTAL ROBOT KNEE TOTAL ROBOT ARTHROPLASTY(Right) ARTHROPLASTY(Right) ARTHROPLASTY(Right) Comments Last Modified By: Erik RN, Liz Valencia RN, Liz Valencia RN, Liz Streeter 06/30/24 10:54:32 06/30/24 10:54:32 06/30/24 10:54:32 Entry 7 Entry 8 Entry 9 Case Attendee Shannon Cross MEDICINE TECHNOLOGIST, Arline Zimmerman RN, Joan Mota Role Performed Staff - Other Anesthesiologist Staff - Other Water Treatment Technician Time In 06/30/24 08:53:00 06/30/24 08:53:00 06/30/24 08:53:00 Time Out 06/30/24 10:54:00 06/30/24 10:54:00 06/30/24 09:04:00 Procedure KNEE TOTAL ROBOT KNEE TOTAL ROBOT KNEE TOTAL ROBOT ARTHROPLASTY(Right) ARTHROPLASTY(Right) ARTHROPLASTY(Right) Comments 2nd scrub fish supervise room assist Last Modified By: Erik RN, Liz Valencia RN, Liz Valencia RN, Liz Streeter 06/30/24 10:54:32 06/30/24 10:54:32 06/30/24 10:54:32 General Comments: ANA DEAN REP ALSO PRESENT FOR THIS CASE. ANUSHA STANFORDcertified medical transcriptionist Protocols FT Pre-Care Text: Implements protective measures prior to operative or invasive procedure, confirms identity before the operative or invasive procedure, verifies operative procedure, surgical site, and laterality Entry 1 Procedure(s) KNEE TOTAL ROBOT Patient Identity Birthday, Blood Band, ARTHROPLASTY(Right) Verified (select at ID Band Check, Patient least 2): Participation Consents / H and P Anesthesia Consent, Operative Site Present Verified H&P, Surgery/Procedure Marking Verified Consent, Transfusion Consent Surgical Site Yes Laterality Verified Yes Verified Procedure Verified Yes Correct Patient Yes Position Verified Availability Equipment, Implant, Prep Dry n/a Verified (If Medication Applicable) PreOp Antibiotic Yes Time Out Arline Art CRNA, Given Participants Erik TAVARES, Chuyita Braxton DO, Jason A, Dylan TAVARES, GRETAOR, Surendra Jay CST, Harpreet Howard CST, America Thorpe Sydney A Time Out Complete 06/30/24 09:30:00 Outcomes Met? Yes Last Modified By: Liz Valencia RN 06/30/24 10:01:39 Post-Care Text: The patient is free from signs and symptoms of injury caused by extraneous objects Allergy Information FT Pre-Care Text: Verifies allergies Entry 1 Allergies Reviewed? Yes Allergies Reviewed Self/Patient With Outcomes Met? Yes Last Modified By: Liz Valencia RN 06/30/24 09:35:05 Post-Care Text: The patient received appropriate medication(s) safely administered during the perioperative period Surgical Procedures FT Entry 1 Procedure Description Procedure KNEE TOTAL ROBOT Modifiers Right ARTHROPLASTY Surgeon Description RIGHT KNEE ROBOTIC ASSIST ARTHROPLASTY Primary Procedure Yes Primary Surgeon Clint Boogie DO Start 06/30/24 09:33:00 Stop 06/30/24 10:51:00 Anesthesia Type General Surgical Service Orthopedics Wound Class 1 - Clean Last Modified By: Amy Dyer CST 07/01/24 14:53:36 General Case Data FT Pre-Care Text: Classifies surgical wound, implements aseptic technique, initiates traffic control Entry 1 Case Information OR OR 5 FT Case Level Level 6 Wound Class 1 - Clean Specialty Orthopedics ASA Class 2 (more content not included)... Normal [facility] ABO/Rhon 06-30-2024 ABO/Rh Positive Invalid Interpretation Code [facility] Comment on above: Performed By: #### [id number] #### [facility] Laboratory [address] [place] [address] ABO/Rh History Checkon 06-30 ABO/Rh History Check Verified Hx Blood Type Normal [facility] Comment on above: Performed By: #### [id number] #### [facility] [address] [place] [address] ABSCon 06-30-2024 ABSC Gel Interp Negative Normal [facility] Comment on above: Performed By: #### [id number] #### [facility] [address] [place] [address] BLOOD BANKOrdered By: Rishi Islas on 06-30-2024 ABO/Rh Interp Positive Invalid Interpretation Code [facility] BB Subsection ABSC Gel Interp Negative (06/30/24 7:02 AM) Normal [facility] BB Subsection Blood Bank ID#on 06-30-2024 BBID# [id number] Invalid Interpretation Code [facility] Comment on above: Performed By: #### 1 [id number] #### [facility] [address] [place] [address] Discharge Instructionson Discharge Instructions Discharge Instructions CARLY CESAR :1970 Visit Date:06/30/2024 Inpatient Discharge Instructions Your Care Team Admitting Physician - Clint Boogie DO Referring Physician - Clint Boogie DO Reason for Your Visit RIGHT KNEE OA Tests Performed XR Knee 1 or 2 Views Right -- Results Pending -- Please visit your patient portal for your results or contact your primary care physician. This Is Your Medications List acetaminophen-oxycodone (Percocet 5 mg-325 mg oral tablet) aspirin (aspirin 81 mg Oral EC Tab) buPROPion (Wellbutrin XL 150 mg/24 hours Tab-ER) celecoxib (CeleBREX 200 mg Cap) cetirizine (cetirizine 10 mg Tab) docusate (Colace 100 mg Cap) ergocalciferol (Vitamin D) ferrous sulfate (FeroSul 325 mg oral tablet) gabapentin (gabapentin 300 mg Cap) ketorolac (ketorolac 10 mg Tab) pantoprazole (Protonix 40 mg Tab-DR) polycarbophil (Fiber Tabs) pramipexole (Mirapex 1 mg Tab) sulfamethoxazole-trimethop rim (Bactrim D.S. 800 mg-160 mg Tab) tirzepatide (Zepbound 10 mg/0.5 mL subcutaneous solution) [Image Removed: STOP]Stop taking these medications cefdinir phenazopyridine (Pyridium 100 mg Tab) Procedure History Arthroscopy of knee (12/05/2023), Colonoscopy (05/16/2021), EGD - Esophagogastroduodenoscopy (05/16/2021), Bone spur of right shoulder, LEEP, Lipoma. What to do next New Follow Up Appointments after Discharge Follow Up with Clint Boogie When: 07/15/2024 02:15 PM EST Comments: Appointment has already been scheduled Call for any problems. Where: [address] [place] [address]- Business (1) Medications What How Much When Instructions Next Dose New acetaminophen-oxycodone (Percocet 5 mg-325 mg oral tablet) See instructions 1-2 tab(s) Oral q4hr Pickup at [facility]/pharmacy #[id number] New aspirin (aspirin 81 mg Oral EC Tab) 1 Tablets By Mouth Every day Duration: 90 Days Pickup at [facility]/pharmacy #6177 New celecoxib (CeleBREX 200 mg Cap) 1 Capsules By Mouth Every day start after finishing ketorolac Pickup at [facility]/pharmacy #6177 New docusate (Colace 100 mg Cap) 1 Capsules By Mouth 2 times a day as needed for for constipation Pickup at [facility]/pharmacy #6177 New gabapentin (gabapentin 300 mg Cap) 1 Capsules By Mouth 3 times a day Duration: 14 Days Pickup at [facility]/pharmacy #6177 New ketorolac (ketorolac 10 mg Tab) 1 Tablets By Mouth Every 8 hours Duration: 3 Days Pickup at [facility]/pharmacy #6177 New sulfamethoxazole-trimethop rim (Bactrim D.S. 800 mg-160 mg Tab) 1 Tablets By Mouth 2 times a day Duration: 7 Days Pickup at [facility]/pharmacy #6177 Unchanged buPROPion (Wellbutrin XL 150 mg/ 24 hours Tab-ER) 1 Tablets By Mouth Every day Unchanged cetirizine (cetirizine 10 mg Tab) 1 Tablets By Mouth Every day Unchanged ergocalciferol (Vitamin D) By Mouth Every day Unchanged ferrous sulfate (FeroSul 325 mg oral tablet) 1 Tablets By Mouth Every day Unchanged pantoprazole (Protonix 40 mg Tab-DR) 1 Tablets By Mouth Every day Unchanged polycarbophil (Fiber Tabs) 625 Milligram By Mouth Every day Unchanged pramipexole (Mirapex 1 mg Tab) 1 Tablets By Mouth Every day Unchanged tirzepatide (Zepbound 10 mg/ 0.5 mL subcutaneous solution) Subcutaneous Every week Pharmacy Information [id number]: [address], [place] [id number] [phone] What When Comments Stop Taking cefdinir Stop Taking phenazopyridine (Pyridium 100 mg Tab) Allergies No Known Allergies No Known Medication Allergies Problems Ongoing - Any problem that you are currently receiving treatment for. Abdominal pain, epigastric BMI 37.0-37.9, adult Cholelithiasis Eczema Gastric ulcer GERD (gastroesophageal reflux disease) Hypercholesterolemia Inflamed skin tag Irritated nevus of abdominal wall Neck mass Open-angle glaucoma RLS (restless legs syndrome) Screening for malignant neoplasm of colon Devices Implanted/Removed This Visit Notice: You have devices implanted this visit that may not be MRI compatible. Implanted KNEE TOTAL ROBOT ARTHROPLASTY Knee R TRIATHLON CRUCIATE RETAINING FEMORAL 06/30/2024 TRIATHLON TRITANIUM ASYMMETRIC PATELLA 06/30/2024 TRIATHLON TRITANIUM TIBIAL COMPONENT 06/30/2024 TRIATHLON X3 TIBIAL BEARING INSERT 06/30/2024 Education Materials How to Use an Incentive Spirometer An incentive spirometer is a tool that measures how well you are filling your lungs with each breath. Learning to take long, deep breaths using this tool can help you keep your lungs clear and active. This may help to reverse or lessen your chance of developing breathing (pulmonary) problems, especially infection. You may be asked to use a spirometer: ??? After a surgery. ??? If you have a lung problem or a history of smoking. ??? After a long period of time when you have been unable to move or be active. If the spirometer includes an indicator to show the highest number that you have reached, your (more content not included)... Normal [facility] Comment on above: Result Comment: Elec tronically Signed By: Russell TAVARES, Sofie Landaverde\kimber\Date and Time Signed: 06/30/24 11:46 EST Inpatient Patient Summaryon 06-30-2024 Inpatient Patient Summary Inpatient Patient Summary [address] [address] [facility] Clinical Discharge Instructions PERSON INFORMATION Name: CARLY CESAR [facility]ANS Admitting Physician: Clint Boogie DO Attending Physician: Clint Boogie DO PCP: Wanda KING, Cristian Discharge Diagnosis: Comment: PATIENT EDUCATION INFORMATION Instructions: Naren Boogie - Total Knee Arthroplasty (Custom) Medication Leaflets: Follow up: MEDICATION LIST New Medications [id number], [address], [place] [id number], [phone] acetaminophen-oxycodone (Percocet 5 mg-325 mg oral tablet) 1-2 tab(s) Oral q4hr. Refills: 0. aspirin (aspirin 81 mg Oral EC Tab) 1 Tablets By Mouth every day for 90 Days. Refills: 0. celecoxib (CeleBREX 200 mg Cap) 1 Capsules By Mouth every day. start after finishing ketorolac. Refills: 0. docusate (Colace 100 mg Cap) 1 Capsules By Mouth 2 times a day as needed for constipation. Refills: 0. gabapentin (gabapentin 300 mg Cap) 1 Capsules By Mouth 3 times a day for 14 Days. Refills: 0. ketorolac (ketorolac 10 mg Tab) 1 Tablets By Mouth every 8 hours for 3 Days. Refills: 0. sulfamethoxazole-trimethop rim (Bactrim D.S. 800 mg-160 mg Tab) 1 Tablets By Mouth 2 times a day for 7 Days. Refills: 0. Medications to Continue with No Changes Other Medications buPROPion (Wellbutrin XL 150 mg/24 hours Tab-ER) 1 Tablets By Mouth every day. cetirizine (cetirizine 10 mg Tab) 1 Tablets By Mouth every day. ergocalciferol (Vitamin D) By Mouth every day. ferrous sulfate (FeroSul 325 mg oral tablet) 1 Tablets By Mouth every day. pantoprazole (Protonix 40 mg Tab-DR) 1 Tablets By Mouth every day. polycarbophil (Fiber Tabs) 625 Milligram By Mouth every day. pramipexole (Mirapex 1 mg Tab) 1 Tablets By Mouth every day. tirzepatide (Zepbound 10 mg/0.5 mL subcutaneous solution) Subcutaneous every week. . No Longer Take the Following Medications cefdinir By Mouth. phenazopyridine (Pyridium 100 mg Tab) Comment: Normal [facility] Main OR PACU I Recordon 06-10 Main OR PACU I Record Main OR PACU I Rec ord PACU Phase I Document Type FT Summary Primary Physician: Clint Boogie DO Finalized Date/Time: 06/30/24 12:24:18 Pt. Name: CARLY CESAR/Sex: 1970 Female Med Rec #: [id number] Physician: Clint Boogie DO Financial #: [id number] Pt. Type: A Room/Bed: [facility] Admit/Disch: 06/30/24 06:24:47 - Institution: Case Times PACU I FT Pre-Care Text: Identifies barriers to communication and implements measures to provide psychological support Develops individualized plan of care, and ensures continuity of care Maintains patient's dignity and privacy, and maintains patient confidentiality Identifies and reports philosophical, cultural, and spiritual beliefs and values Identifies individual values and wishes concerning care Implements aseptic technique, and administers prescribed antibiotic therapy and immunizing agents as ordered Evaluates postoperative tissue perfusion Implements thermoregulation measures, and monitors body temperature Evaluates postoperative respiratory status Evaluates postoperative cardiac status Evaluates postoperative neurological status Assesses pain control, collaborated in initiating patient-controlled analgesia and implements alternative methods of pain control Verifies allergies, administers prescribed medications and solutions, evaluates response to medications Entry 1 In PACU I 06/30/24 10:56:00 Discharge from PACU 06/30/24 11:26:00 I Outcomes Met? Yes Last Modified By: Bry TAVARES, Monet Holley 06/30/24 12:23:06 Post-Care Text: The patient demonstrates knowledge of the expected response to the operative or invasive procedure The patient's care is consistent with the individualized perioperative plan of care The patient's right to privacy is maintained The patient's value system, lifestyle, ethnicity, and culture are considered, respected, and incorporated into the perioperative plan of care The patient participates in decisions affecting his or her perioperative plan of care The patient is free from signs and symptoms of infection The patient has wound/tissue perfusion consistent with or improved from baseline levels established preoperatively The patient is at or returning to normothermia at the conclusion of the immediate postoperative period The patient's respiratory function is consistent with or improved from baseline levels established preoperatively The patient's cardiovascular status is consistent with or improved from baseline levels established preoperatively The patient's cardiovascular status is consistent with or improved from baseline levels established preoperatively The patient demonstrates and/or reports adequate pain control throughout the perioperative period The patient received appropriate medication(s), safely administered during the perioperative period Acuity Level PACU I FT Entry 1 Start Time 06/30/24 10:56:00 Stop Time 06/30/24 11:26:00 Acuity Level Acuity Level I Last Modified By: Monet Londono RN 06/30/24 12:23:15 Finalized By: Monet Londono RN Document Signatures Signed By: Monet Londono RN 06/30/24 12:23 Bry TAVARES, Monet Holley 06/30/24 12:23 Bry TAVARES, Monet Holley 06/30/24 12:23 Bry TAVARES, Monet Holley 06/30/24 12:24 Normal [facility] Main OR PACU II Recordon Main OR PACU II Record Main OR PACU II Record PACU Phase II Document Type FT Summary Primary Physician: Clint Boogie DO Finalized Date/Time: 06/30/24 15:23:17 Pt. Name: CARLY CESAR/Sex: 1970 Female Med Rec #: [id number] Physician: Clint Boogie DO Financial #: [id number] Pt. Type: A Room/Bed: Admit/Disch: 06/30/24 06:24:47 - Institution: Case Times PACU II FT Pre-Care Text: Identifies barriers to communication and implements measures to provide psychological support and determines knowledge level Develops individualized plan of care, and ensures continuity of care Maintains patient's dignity and privacy, and maintains patient confidentiality Identifies and reports philosophical, cultural, and spiritual beliefs and values Identifies individual values and wishes concerning care administers prescribed antibiotic therapy and immunizing agents as ordered, Evaluates postoperative tissue perfusion Implements thermoregulation measures, and monitors body temperature Evaluates postoperative respiratory status Evaluates postoperative cardiac status Evaluates postoperative neurological status Assesses pain control, collaborated in initiating patient-controlled analgesia and implements alternative methods of pain control Verifies allergies, administers prescribed medications and solutions, evaluates response to medications Entry 1 In PACU II 06/30/24 11:25:00 Discharge from PACU 06/30/24 15:05:00 II Outcomes Met? Yes Last Modified By: Sofie Wells RN 06/30/24 15:23:15 Post-Care Text: The patient demonstrates knowledge of the expected response to the operative or invasive procedure The patient's care is consistent with the individualized perioperative plan of care The patient's right to privacy is maintained The patient's value system, lifestyle, ethnicity, and culture are considered, respected, and incorporated into the perioperative plan of care The patient participates in decisions affecting his or her perioperative plan of care. The patient is free from signs and symptoms of infection The patient has wound/tissue perfusion consistent with or improved from baseline levels established preoperatively The patient is at or returning to normothermia at the conclusion of the immediate postoperative period The patient's respiratory function is consistent with or improved from baseline levels established preoperatively The patient's cardiovascular status is consistent with or improved from baseline levels established preoperatively The patient's neurological status is consistent with or improved from baseline levels established preoperatively The patient demonstrates and/or reports adequate pain control throughout the perioperative period The patient received appropriate medication(s), safely administered during the perioperative period Finalized By: Sofie Wells RN Document Signatures Signed By: Sofie Wells RN 06/30/24 15:23 Normal [facility] Main OR Preoperative Recordo n 06-30-2024 Main OR Preoperative Record Main OR Preoperative Record PreOp Document Type FT Summary Primary Physician: Clint Boogie DO Finalized Date/Time: 06/30/24 09:46:13 Pt. Name: CARLY CESAR/Sex: 1970 Female Med Rec #: [id number] Physician: Clint Boogie DO Financial #: [id number] Pt. Type: A Room/Bed: Admit/Disch: 06/30/24 06:24:47 - Institution: Case Times PreOp FT Pre-Care Text: Verifies consent for planned procedure, identifies individual values and wishes concerning care, includes family members in perioperative teaching Entry 1 Patient Times. In Pre Surgery 06/30/24 06:30:00 Out Pre Surgery 06/30/24 08:51:00 Outcomes Met? Yes Last Modified By: Liz Valencia RN 06/30/24 09:46:12 Post-Care Text: The patient participates in decisions affecting his or her perioperative plan of care Finalized By: Liz Valencia RN Document Signatures Signed By: Liz Valencia RN 06/30/24 09:46 Normal [facility] Operative Reporton Operative Report Operative Report Patient: CARLY CESAR Age: 54 years Sex: Female : 1970 Associated Diagnoses: None Author: Clint Boogie DO DATE OF SURGERY: 06/30/2024 SURGEON: Clint Boogie D.O. BIOMEDICAL EQUIPMENT SUPPORT SPECIALIST: Freya Agosto CFA PREOPERATIVE DIAGNOSIS: Advanced degenerative osteoarthrosis, right knee POSTOPERATIVE DIAGNOSIS: Advanced degenerative osteoarthrosis, right knee OPERATION: Right total knee arthroplasty utilizing Skinny MomO robotic arm assistance ANESTHESIA: Spinal + regional block SADDLE STITCHING MACHINE OPERATOR: Arline Art CRNA and Jr Flor MD IMPLANTS USED: [place] Triathlon Total Knee System 1. size 2 cruciate retaining cementless femur 2. Size 9 mm X3 CS polyethylene 3. Size 2 Tritanium cementless tibial baseplate 4. Size 29 mm asymmetric Tritanium cementless patella OPERATIVE INDICATIONS: Carly is a 54-year-old female who has had persistent right knee pain despite numerous conservative measures. Her pain interferes with her activities of daily living, ability to sleep at night, and quality of life. She agreed to proceed with the above procedure after a discussion of the risks, benefits, complications, alternatives, and expectations. Please see office notes for further details. The patient's surgery was preplanned utilizing CT scan and [employer] software. This included the planned implant sizes and positions, bone resection, and ligament balancing. Modifications to the plan were made intraoperatively as appropriate. PROCEDURE: The correct operative site was identified and marked in the preoperative holding area. The patient was administered intravenous antibiotics in accordance with SCIP Protocol. She was also given a gram of tranexamic acid intravenously about 15 minutes prior to incision. She was transported to the Regional Anesthetic Block Room and administered a regional anesthetic nerve block by the anesthesiologist. I requested the nerve block to assist with intraoperative and postoperative pain control. She was transported to the Operating Room and administered a spinal anesthetic. She was then placed supine on the operating room table and a well padded tourniquet was applied to the operative upper thigh. The right upper extremity was secured across the patient's torso. The operative lower extremity was then prepped and draped in the usual sterile fashion. The foot was placed into a padded oseguera and secured in the [place] knee positioner. Surgical time-out was performed with all required personnel present. The limb was exsanguinated with an Esmarch. Tourniquet was inflated to 300 mm Hg. A longitudinal incision over the anterior knee was made. Medial and lateral skin flaps were developed. Dissection was carried down through the subcutaneous layers. Medial parapatellar arthrotomy was performed and normal appearing joint fluid was encountered and suctioned. The intermeniscal ligament was then cut and soft tissue at the medial tibial plateau was peeled off of the bone with Bovie electrocautery. The fat pad was sharply excised. Tourniquet was deflated at 6 minutes and adequate perfusion was noted to return to the extremity. Areas of active bleeding were cauterized with the Bovie and Aquamantys. The tibial pins for the tibial array were placed through 2 stab incisions along the medial aspect of the proximal tibia. The tibial array was placed onto the pins and secured. The distal femoral pins for the femoral array were placed in the medial femoral condyle. The femoral array was affixed to the pins. The registration device was then placed into the distal femur just distal to the array pins along the medial femoral condyle. The tibial registration device was placed along the medial tibia distal to the planned tibial resection. The hip center, medial and lateral malleoli were registered. Registration points along the distal femur and proximal tibia were captured. Osteophytes were removed with a rongeur. Range of motion of the knee was then assessed with the computer. Preliminary ligament balancing was performed with the tensioning spoons in both flexion and extension and these values were captured by the computer. The knee had 7 degree flexion contracture and 4.5 degrees of varus. Adjustments to the planned resection were made to balance the ligaments. The self-retaining medial and lateral retractors were then placed and secured to the leg oseguera. Bone resection was then performed with computer guidance using the saw attached to the [employer] robotic arm. Femoral cuts were made including anterior, posterior, and chamfer cuts. The tibial cut was then made in the same fashion. The resected bone fragments were removed with osteotomes and freed from tissue with the bovie. Lamina research and development specialist was placed into the joint. Remaining meniscus and soft tissue were removed from the medial and lateral compartments. Posterior osteophytes removed from the condyles with an osteotome. T (more content not included)... Normal [facility] Comment on above: Result Comment: Elec tronically Signed By: Clint Boogie DO\.br\Date and Time Signed: 06/30/24 14:58 EST Outpatient Surgery Discharge Instructionon 06-30-2024 Outpatient Surgery Discharge Instruction Outpatient Surgery Discharge Instruction [place] [id number] Patient Discharge Instructions PERSON INFORMATION Name: CARLY CESAR Date of : 1970 Current Date: 06/30/2024 07:29:46 PHYSICIANS Admitting Physician: Clint Boogie DO Discharge Diagnosis: CARLY CESAR has been given the following list of follow-up instructions, prescriptions, and patient education materials: IF UNABLE TO CONTACT YOUR PHYSICIAN AND YOU FEEL IT IS AN EMERGENCY, GO TO THE NEAREST EMERGENCY ROOM OR CALL 911 I, CARLY CESAR, have received the attached patient education materials/instructions and have verbalized understanding: May we do a follow up call? Yes No I was present when discharge instructions were given ____ Patient Signature _ Date Clinican/Nurse Signature Date Follow up: Pharmacy Information: You may receive a survey from Yash Desai asking you to rate your care experience. Your feedback is important and will help us understand what we do well and how we can improve the quality of care we provide to you, your loved ones and our community. It???s an honor to serve you. Thank you for choosing [facility] HERE ARE THE MEDICATION CHANGES THAT OCCURRED DURING YOUR HOSPITAL STAY New Medications [id number], [address], [place] [id number], [phone] acetaminophen-oxycodone (Percocet 5 mg-325 mg oral tablet) 1-2 tab(s) Oral q4hr. Refills: 0. aspirin (aspirin 81 mg Oral EC Tab) 1 Tablets By Mouth every day for 90 Days. Refills: 0. celecoxib (CeleBREX 200 mg Cap) 1 Capsules By Mouth every day. start after finishing ketorolac. Refills: 0. docusate (Colace 100 mg Cap) 1 Capsules By Mouth 2 times a day as needed for constipation. Refills: 0. gabapentin (gabapentin 300 mg Cap) 1 Capsules By Mouth 3 times a day for 14 Days. Refills: 0. ketorolac (ketorolac 10 mg Tab) 1 Tablets By Mouth every 8 hours for 3 Days. Refills: 0. sulfamethoxazole-trimethop rim (Bactrim D.S. 800 mg-160 mg Tab) 1 Tablets By Mouth 2 times a day for 7 Days. Refills: 0. Medications to Continue with No Changes Other Medications buPROPion (Wellbutrin XL 150 mg/24 hours Tab-ER) 1 Tablets By Mouth every day. cetirizine (cetirizine 10 mg Tab) 1 Tablets By Mouth every day. ergocalciferol (Vitamin D) By Mouth every day. ferrous sulfate (FeroSul 325 mg oral tablet) 1 Tablets By Mouth every day. pantoprazole (Protonix 40 mg Tab-DR) 1 Tablets By Mouth every day. polycarbophil (Fiber Tabs) 625 Milligram By Mouth every day. pramipexole (Mirapex 1 mg Tab) 1 Tablets By Mouth every day. tirzepatide (Zepbound 10 mg/0.5 mL subcutaneous solution) Subcutaneous every week. . No Longer Take the Following Medications cefdinir By Mouth. phenazopyridine (Pyridium 100 mg Tab) PATIENT EDUCATION INFORMATION Instructions: [place], [place] [facility] DISCHARGE INSTRUCTIONS: TOTAL KNEE ARTHROPLASTY INCISION CARE: The bandage may be changed by your home Physical Therapist at 7 days postoperatively and worn an additional 7 days. A new Mepilex bandage should then be placed. The bandage is waterproof, so you may shower at home. Steri-strips (paper tape strips) may be applied to the incision if any slight wound separation is noted. These should remain in place for five days and then they may come off in the shower. Please notify the office if any increase in redness, tenderness, drainage, fever, or wound separation is noted beyond this point. MEDICATIONS: You may resume your home medications at the time of discharge. Arixtra and Lovenox are mild blood thinners that prevent the development of blood clots in the legs. One of these has been used during your hospitalization. After discharge home you should continue the use of two stomach coated baby Aspirin tablets daily with your largest meal for 30 days after home discharge. Please notify your doctor if you have a stomach sensitivity to Aspirin or history of previous stomach ulcers. Pain medication has been prescribed as well. You may continue to use the pain medication every four hours as needed. Any narcotic pain medication can cause side effects including stomach upset, constipation, or light-headedness. You should not drive or operate machinery, or drink alcohol while using the narcotic pain medication. You should not use other pain medications with this prescription pain medication unless further directed by your physician. PHYSICAL THERAPY Continue the range of motion and strengthening exercises initiated by Physical Therapy in the (more content not included)... Normal [facility] Proceduralon 06-30-2024 Procedural Procedural Patient: CARLY CESAR Age: 54 years Sex: Female : 1970 Associated Diagnoses: None Author: Jr Flor MD Postoperative Information Postoperative disposition: Postoperative disposition: To PACU. Optimetrix number: Optimetrix number [id number]. Anesthetic utilized: Regional: Spinal, ACB . Health Status Allergies: Allergic Reactions (Selected) No Known Allergies No Known Medication Allergies Physical Examination Vital Signs 06/30/2024 11:32 EST Heart Rate Monitored 78 bpm SpO2 99 % 06/30/2024 11:32 EST Respiratory Rate 18 br/min 06/30/2024 11:30 EST Systolic Blood Pressure 114 mmHg Diastolic Blood Pressure 75 mmHg Mean Arterial Pressure, Monitered 88 mmHg 06/30/2024 11:30 EST Temperature Temporal Artery 36.6 DegC Pain Assessment: Controlled. General: Awake, Appropriate. Respiratory: Adequate air exchange. Cardiovascular: Stable. Neurological Assessment Anesthetic outcome No anesthetic complications noted. Adequate pain relief. Review / Management Condition: Stable. Plan Transfer/Discharge: Transfer/Discharge Discharge when meets criteria ( To home ). Normal [facility] Procedural Procedural Patient: CARLY CESAR Age: 54 years Sex: Female : 1970 Associated Diagnoses: None Author: Arline Art CRNA Procedure Nerve Block Block Type: Adductor canal block. Laterality: Right. Informed consent for anesthesia management: Anesthesia options discussed including nerve block, Description of the procedure, risks, benefits, and alternatives was provided, The patient's questions were addressed. Time out: Confirmed correct patient, procedure and site. Time: Date/Time 06/30/2024 08:05:00. Indication: Block for postoperative pain management as requested by surgeon. Anesthesia Method: IV Sedation with monitored anesthesia care, The patient remained awake and able to interact in a meaningful way throughout the procedure. Preparation: The patient was placed in the following position Supine, Continuous pulse oximetry applied, Guidance (Ultrasound used to identify anatomical landmarks, Permanent image retained, Using sterile gel, probe cleansed with antibacterial wipe.), The site was prepped with ChloraPrep. Procedure: Anesthetic Agent (Total volume: 20 ml, Ropivacaine 0.25% with epi), Needle was inserted without pain or parasthesia in the conscious patient, Number of attempts 1, Negative attempt at aspiration for blood, Periodic negative attempts at aspiration of blood were made as the local was injected, No pain or parathesia were elicited with injection of the anesthetic in the conscious patient, It was idetified that the correct anesthetic agent was administered to the correct site. Complications: The patient tolerated the procedure as expected. [facility] Procedural Procedural Patient: CARLY CESAR Age: 54 years Sex: Female : 1970 Associated Diagnoses: None Author: Chacho KING, Jr Sandoval Preoperative Information Anesthesia Preop Info: Time patient last ate or drank 06/30/2024 00:00:00. Anesthesia history: Patient history: slow to wake. Family history+: None. Informed consent: Signed by patient. Re-evaluation prior to induction: Initial evaluation reviewed: No significant change. Review of Systems Eye Ear/Nose/Mouth/Throat Respiratory: No shortness of breath, No cough. Cardiovascular: Negative, No chest pain. Gastrointestinal: No heartburn. Musculoskeletal Neurologic Health Status Allergies: Allergic Reactions (Selected) No Known Allergies No Known Medication Allergies, Allergies (2) Active Severity Reaction No Known Allergies None Documented No Known Medication Allergies None Documented Current medications: (Selected) Inpatient Medications Ordered HYDROmorphone 1 mg/mL injectable solution: 0.4 mg = 0.4 mL, Injection, IV Push, q4min PRN Pain for 5 dose(s), Stop date Limited # of times, Routine, Start date 06/30/24 8:05:00 EST, 06/30/24 8:05:00 EST Lactated Ringers IV [place] 1000 mL 1,000 mL: 1,000 mL, IV, 100 mL/hr, Routine, Start date 06/30/24 8:05:00 EST, 10 hour(s), Total volume (mL): 1,000, 77.5 kg, 1.85, m2 Lactated Ringers IV [place] 1000 mL 1,000 mL: 1,000 mL, IV, 80 mL/hr, Routine, Start date 06/30/24 7:25:00 EST, 12.5 hour(s), Total volume (mL): 1,000, 77.5 kg, 1.85, m2 Sodium Chloride 0.9% IV [place] 1000 mL 1,000 mL: 1,000 mL, IV, 150 mL/hr, Routine, Start date 06/30/24 6:30:00 EST, 6.7 hour(s), Total volume (mL): 1,000, 77.5 kg, 1.85, m2 Zofran 4 mg/2 mL Injection: 4 mg = 2 mL, Injection, IV Push, q6hr PRN Nausea/Vomiting, Routine, Start date 06/30/24 7:25:00 EST, 06/30/24 7:25:00 EST cefazolin additive + Sodium Chloride 0.9% intravenous solution 50 mL: 2 gm = 1 EA, Powder-Inj, IV Piggyback, PREOP, Routine, Start date 06/30/24 6:30:00 EST, 100 mL/hr, Infuse over 30 minute(s) morphine 2 mg/mL Inj: 2 mg = 1 mL, Injection, IV Push, q4hr PRN Pain 8-10 for 5 day(s), Stop date 07/05/24 7:24:00 EST, Routine, Start date 06/30/24 7:25:00 EST oxyCODONE 5 mg Tab: 10 mg = 2 tab(s), Tab, Oral, q4hr PRN Pain 8-10 for 5 day(s), Stop date 07/05/24 7:24:00 EST, Routine, Start date 06/30/24 7:25:00 EST, 06/30/24 7:25:00 EST oxyCODONE 5 mg Tab: 5 mg = 1 tab(s), Tab, Oral, q4hr PRN Pain 8-10 for 5 day(s), Stop date 07/05/24 7:24:00 EST, Routine, Start date 06/30/24 7:25:00 EST, 06/30/24 7:25:00 EST promethazine additive 12.5 mg + Sodium Chloride 0.9% IV [place] 50 mL (INT) 50 mL: IV Piggyback, Once PRN Nausea/Vomiting, Routine, Start date 06/30/24 8:05:00 EST, 151.5 mL/hr, Infuse over 20 minute(s), 06/30/24 8:05:00 EST tranexamic acid additive + premix generic diluent 100 mL: 1,000 mg = 100 mL, Soln-IV, IV Piggyback, Once, Stop date 06/30/24 7:00:00 EST, Routine, Start date 06/30/24 7:00:00 EST, 200 mL/hr, Infuse over 30 minute(s) Prescriptions Prescribed Bactrim D.S. 800 mg-160 mg Tab: 1 tab(s), Oral, BID for 7 day(s), 14 tab(s), Refill(s) 0, [id number], 159, cm, 06/18/24 7:16:00 EST, Height/Length Dosing, 77.5, kg, 06/18/24 7:16:00 EST, Weight Dosing CeleBREX 200 mg Cap: 200 mg = 1 cap(s), Oral, Daily, start after finishing ketorolac, # 60 cap(s), Refills(s) 0, Pharmacy: [id number], 159, cm, 06/18/24 7:16:00 EST, Height/Length Dosing, 77.5, kg, 06/18/24 7:16:00 EST, Weight Dosing Colace 100 mg Cap: 100 mg = 1 cap(s), Oral, BID, PRN for constipation, # 20 cap(s), Refills(s) 0, Pharmacy: [id number], 159, cm, 06/18/24 7:16:00 EST, Height/Length Dosing, 77.5, kg, 06/18/24 7:16:00 EST, Weight Dosing Percocet 5 mg-325 mg oral tablet: See Instructions, 40 tab(s), Refill(s) 0, 1-2 tab(s) Oral q4hr, [id number], 159, cm, 06/18/24 7:16:00 EST, Height/Length Dosing, 77.5, kg, 06/18/24 7:16:00 EST, Weight Dosing aspirin 81 mg Oral EC Tab: 81 mg = 1 tab(s), Oral, Daily, X 90 day(s), # 90 tab(s), Refills(s) 0, [id number] 159, cm, 06/18/24 7:16:00 EST, Height/Length Dosing, 77.5, kg, 06/18/24 7:16:00 EST, Weight Dosing gabapentin 300 mg Cap: 300 mg = 1 cap(s), Oral, TID, X 14 day(s), # 42 cap(s), Refills(s) 0, [id number], 159, cm, 06/18/24 7:16:00 EST, Height/Length Dosing, 77.5, kg, 06/18/24 7:16:00 EST, Weight Dosing ketorolac 10 mg Tab: 10 mg = 1 tab(s), Oral, q8hr, X 3 day(s), # 9 tab(s), Refills(s) 0, [id number], 159, cm, 06/18/24 7:16:00 EST, Height/Length Dosing, 77.5, kg, 06/18/24 7:16:00 EST, Weight Dosing Documented Medications Documented FeroSul 325 mg oral tablet: 325 mg = 1 tab(s), Oral, Daily, Refills(s) 0 Fiber Tabs: 625 mg, Oral, Daily, Refills(s) 0, Prophylaxis Mirapex 1 mg Tab: 1 mg = 1 tab(s), Oral, Daily, Refills(s) 0 Protonix 40 mg Tab-DR: 40 mg = 1 tab(s), Oral, Daily, Refills(s) 0, Indigestion Vitamin D: Oral, Daily, Refills(s) 0, Prophylaxis (more content not included)... Normal [facility] SEROLOGYOrdered By: Mireya ruiz on 06-30-2024 HCG.beta subunit (U) [Moles/Vol] Negative Normal [facility] Man Sero U BetaHcg Qualon 06-30-2024 HCG.beta subunit (U) [Moles/Vol] Negative Normal [facility] Comment on above: Performed By: #### 2 [id number] #### [facility] [address] [place] [address] XR Knee 1 or 2 Views Righton 06-30-2024 XR Knee 1 or 2 Views Right Exam Date/Time: 06/30/2024 11:22 EST Reason for Exam: Post-op evaluation;Other (please specify) Report IMPRESSION: RIGHT TOTAL KNEE REPLACEMENT. CLINICAL INFORMATION: Postop. COMMENT: 2 views. There is a right total knee prosthesis, in good position and alignment. There is gas in the soft tissues from the surgery. Ordering Provider: Clint Boogie FINAL REPORT Dictated: 06/30/2024 12:44 pm Suresh Padron M.D. Signed (Electronic Signature): 06/30/2024 12:44 pm Signed by: Suresh Padron M.D. Transcribed by: GLORIA Technologist: ALANNA Technical Comments Radiation Dose: Ka,r in mGy = na DAP = na Normal [facility] CT Lower Extremity w/o Contr ast Righton [...] Reza MD Transcribed by: GLORIA Technologist: INDRA Bello [facility] C Urineon 06-19-2024 Bacteria identified Cx Nom [...] Locations R1: This test was performed at: [facility], [address] [place] [address], [phone] , [place], Normal [facility] Comment on above: Performed By: #### 2 [id number] #### [facility] [address] [place] [id number] XR Chest 2 Viewson XR Chest 2 [...] mGy = na DAP = na Normal [facility] ABO/Rh RetypeOrdered By: Mallika Brooks on 06-17-2024 ABO/Rh Retype Interp Positive Invalid Interpretation Code [facility] BB Subsection Comment on above: Performed By: #### 1 [id number] #### [facility] [address] [place] [id number] BMPOrdered By: SYSTEM SYSTEM on 06-17-2024 Anion gap [Moles/Vol] 12 mmol/L Normal 6-16 Rem isol Chem Comment on above: Performed By: #### 2 [id number] #### [facility] [address] [place] [address] Calcium [Mass/Vol] 9.3 mg/dL Normal 8.9-11.1 Remiso l Chem Comment on above: Performed By: #### 2 [id number] #### [facility] [address] [place] [address] Chloride [Moles/Vol] 108 mmol/L Normal 101-111 Paul alberta Chem Comment on above: Performed By: #### 2 [id number] #### [facility] [address] [place] [address] CO2 [Moles/Vol] 24 mmol/L Normal 21-31 Remisol C hem Comment on above: Performed By: #### 2 [id number] #### [facility] [address] [place] [address] Creatinine [Mass/Vol] 0.9 mg/dL Normal 0.5-1.3 Rem isol Chem Comment on above: Performed By: #### 2 [id number] #### [facility] [address] [place] [address] Glucose [Mass/Vol] 86 mg/dL Normal 55-199 Remiso l Chem Comment on above: Performed By: #### 2 [id number] #### [facility] [address] [place] [address] Potassium [Moles/Vol] 4.1 mmol/L Normal 3.5-5.3 Rem isol Chem Comment on above: Performed By: #### 2 [id number] #### [facility] [address] [place] [address] Sodium [Moles/Vol] 140 mmol/L Normal 135-145 Remiso l Chem Comment on above: Performed By: #### 2 [id number] #### [facility] [address] [place] [address] Urea nitrogen [Mass/Vol] 18 mg/dL Normal 5-21 Remisol Chem Comment on above: Performed By: #### 2 [id number] #### [facility] [address] [place] [address] BMPon 06-17-2024 Urea nitrogen/Creatinine [Mass ratio] 20 No Units Normal 10-20 [facility] Comment on above: Performed By: #### 2 [id number] #### [facility] [address] [place] [address] CBC w/ Auto DiffOrdered By: SYSTEM SYSTEM on 06-17-2024 Basophils/100 WBC (Bld) 0.2 % Normal 0.0-2.0 Remisol Heme Comment on above: Performed By: #### 2 [id number] #### [facility] [address] [place] [address] Basophils/Leukocytes Auto (Bld) [Pure # fraction] 0.0 E9/L Normal 0.0-0.2 Remisol Heme Comment on above: Performed By: #### 2 [id number] #### [facility] [address] [place] [address] Eosinophils (Bld) [#/Vol] 0.2 E9/L Normal 0.0-0.5 Remisol Heme Comment on above: Performed By: #### 2 [id number] #### [facility] [address] [place] [address] Eosinophils/100 WBC (Bld) 2.0 % Normal 0.0-8.0 Remisol Heme Comment on above: Performed By: #### 2 [id number] #### [facility] [address] [place] [address] Erythrocyte distribution width (RBC) [Ratio] 13.4 % Normal 10.9-14.2 Remisol Heme Comment on above: Performed By: #### 2 [id number] #### [facility] [address] [place] [address] Hematocrit (Bld) [Volume fraction] 40.3 % Normal 34.0-46.0 Remisol Heme Comment on above: Performed By: #### 2 [id number] #### [facility] [address] [place] [address] Hemoglobin (Bld) [Mass/Vol] 13.6 g/dL Normal 12.0-16.0 Remisol Heme Comment on above: Performed By: #### 2 [id number] #### [facility] [address] [place] [address] Lymphocytes (Bld) [#/Vol] 2.4 E9/L Normal 1.0-4.0 Remisol Heme Comment on above: Performed By: #### 2 [id number] #### [facility] [address] [place] [address] Lymphocytes/100 WBC (Bld) 26.7 % Normal 14.0-50.0 Remisol Heme Comment on above: Performed By: #### 2 [id number] #### [facility] [address] [place] [address] MCH (RBC) [Entitic mass] 30.2 pg Normal 27.0-34.0 Remisol Heme Comment on above: Performed By: #### 2 [id number] #### [facility] [address] [place] [address] MCHC (RBC) [Mass/Vol] 33.8 g/dL Normal 31.4-36.0 Rem isol Heme Comment on above: Performed By: #### 2 [id number] #### [facility] [address] [place] [address] MCV (RBC) [Entitic vol] 89.3 fL Normal 80.0-100.0 Remisol Heme Comment on above: Performed By: #### 2 [id number] #### [facility] [address] [place] [address] Monocytes (Bld) [#/Vol] 0.6 E9/L Normal 0.2-1.0 Remisol Heme Comment on above: Performed By: #### 2 [id number] #### [facility] [address] [place] [address] Neutrophils (Bld) [#/Vol] 5.8 E9/L Normal 2.0-7.5 Remisol Heme Comment on above: Performed By: #### 2 [id number] #### [facility] [address] [place] [address] Neutrophils/100 WBC (Bld) 64.7 % Normal 36.0-75.0 Remisol Heme Comment on above: Performed By: #### 2 [id number] #### [facility] [address] [place] [address] Platelet 278.0 E9/L Normal 150.0-500. 0 Remisol Heme Comment on above: Performed By: #### 2 [id number] #### [facility] [facility] [address] [place] [address] Platelet mean volume (Bld) [Entitic vol] 9.8 fL Normal 6.4-10.8 [facility] Comment on above: Performed By: #### 2 [id number] #### [facility] [address] [place] [address] RBC (Bld) [#/Vol] 4.5 E12/L Normal 4.3-5.9 [facility] Comment on above: Performed By: #### 2 [id number] #### [facility] [address] [place] [address] WBC corrected for nucl RBC Auto (Bld) [#/Vol] 8.9 E9/L Normal 4.0-11.0 [facility] Comment on above: Performed By: #### 2 [id number] #### [facility] [address] [place] [address] CHEMISTRYOrdered By: SYSTEM SYSTEM on 06-17-2024 Urea nitrogen/Creatinine [Mass ratio] 20 mg/mg Normal 10 - 20 [facility] Chem HEMATOLOGYOrdered By: SYSTEM SYSTEM on 06-17-2024 Monocytes/100 WBC (Bld) 6.4 % Normal 4.0 - 14.0 % [facility] UA WITH CULT RFLXon 06-17-19 25 BACTERIA:PRTHR:PT:URI NE:ORD:AUTOMATED Trace Trace /HPF [facility] Healthcare BILIRUBIN:PRTHR:PT:UR INE:ORD:TEST STRIP.AUTOMATED Negative Negative mg/dL [facility] EPITHELIAL CELLS.SQUAMOUS:NARIC: PT:URINE SED:QN:AUTOMATED COUNT 3-4 CD:[id number] [facility] ERYTHROCYTES:PRTHR:PT :URINE SED:ORD:MICROSCOPY.LI GHT 0-3 [facility] CLARITY:TYPE:PT:URINE :NOM: Clear Clear [facility] CLASS:TYPE:PT:URINE COLLECTION METHOD:NOM:* Clean Catch [facility] COLOR:TYPE:PT:URINE:N OM:AUTO Dark-Yellow Abnormal Yellow [facility] Comment on above: Microscopic readings are only performed on those samples that meet specific criteria set forth by [facility]. [facility] PH:LSCNC:PT:URINE:QN: TEST STRIP 6.5 5.0 - 9.0 [facility] SPECIFIC GRAVITY:RDEN:PT:URINE :QN:TEST STRIP 1.011 1.005 - 1.030 [facility] GLUCOSE:PRTHR:PT:URIN E:ORD:TEST STRIP Negative Negative mg/dL [facility] HEMOGLOBIN:MCNC:PT:UR INE:SEMIQN:TEST STRIP.AUTOMATED Negative Negative mg/dL [facility] Interpretation and review of laboratory results Abnormal [facility] KETONES:PRTHR:PT:URIN E:ORD:TEST STRIP.AUTOMATED Negative Negative mg/dL [facility] LEUKOCYTE ESTERASE:PRTHR:PT:URI NE:ORD:TEST STRIP.AUTOMATED 250 Chante/uL Abnormal Negative CD:[id number] [phone] [facility] LEUKOCYTES:NARIC:PT:U RINE SED:QN:AUTOMATED COUNT 0-5 [facility] MUCUS:PRTHR:PT:URINE: ORD:AUTOMATED Trace Negative CD:[id number] [facility] NITRITE:PRTHR:PT:URIN E:ORD:TEST STRIP.AUTOMATED 1+ Abnormal Negative mg/dL [facility] PROTEIN:PRTHR:PT:URIN E:ORD:TEST STRIP Negative Negative mg/dL [facility] UROBILINOGEN:MCNC:PT: URINE:SEMIQN:TEST STRIP Negative Negative mg/dL [facility] Original Ordering Provider: DO Clint Boogie [facility] UA with Cult Rflxon 06-17-19 25 Bacteria Auto Ql (U) Trace Normal Trace Fish er [facility] Comment on above: Performed By: #### 4 [id number] #### [facility] [address] [place] [address] Clarity (U) Clear Normal Clear [facility] Comment on above: Performed By: #### 4 [id number] #### [facility] [address] [place] [address] Color (U) Dark-Yellow Abnormal Yellow [facility] Comment on above: Result Comment: Micr oscopic readings are only performed on those samples that meet specific criteria set forth by [facility]. Performed By: #### 4 [id number] #### [facility] [address] [place] [address] Epithelial cells.squamous Auto (Urine sed) [#/Area] 3-4 Invalid Interpretation Code [facility] Comment on above: Performed By: #### 4 [id number] #### [facility] [address] [place] [address] Leukocyte esterase Auto test strip Ql (U) 250 Chante/uL Abnormal Negative [facility] Comment on above: Performed By: #### 4 [id number] #### [facility] [address] [place] [address] Mucus Auto Ql (U) Trace Normal Negative [facility] Comment on above: Performed By: #### 4 [id number] #### [facility] [address] [place] [address] Nitrite Auto test strip Ql (U) 1+ mg/dL Abnormal Negative [facility] Comment on above: Performed By: #### 4 [id number] #### [facility] [address] [place] [address] pH (U) 6.5 [pH] Invalid Interpretation Code 5.0-9.0 [facility] Comment on above: Performed By: #### 4 [id number] #### [facility] [address] [place] [address] RBC Ql (U) 0-3 Normal 0-3 [facility] Comment on above: Performed By: #### 4 [id number] #### [facility] [address] [place] [address] Specific gravity (U) [Rel density] 1.011 Invalid Interpretation Code 1.005-1.03 0 [facility] Comment on above: Performed By: #### 4 [id number] #### [facility] [address] [place] [address] WBC Auto (Urine sed) [#/Area] 0-5 Normal 0-5 [facility] Comment on above: Performed By: #### 4 [id number] #### [facility] [address] [place] [address] Type of Urine collection method Clean Catch Normal [facility] Comment on above: Performed By: #### 4 [id number] #### [facility] [address] [place] [address] UA with Cult RflxOrdered By: SYSTEM SYSTEM on 06-17-2024 Bilirubin Ql (U) Negative Normal Negative [facility] UA Auto SS Comment on above: Performed By: #### 4 [id number] #### [facility] [address] [place] [address] Glucose Ql (U) Negative Normal Negative [facility] UA Au to SS Comment on above: Performed By: #### 4 [id number] #### [facility] [address] [place] [address] Hemoglobin Auto test strip (U) [Mass/Vol] Negative Normal Negative [facility] UA Aut o SS Comment on above: Performed By: #### 4 [id number] #### [facility] [address] [place] [address] Ketones Auto test strip Ql (U) Negative Normal Negative [facility] UA Auto SS Comment on above: Performed By: #### 4 [id number] #### [facility] [address] [place] [address] Protein Ql (U) Negative Normal Negative [facility] UA Au to SS Comment on above: Performed By: #### 4 [id number] #### [facility] [address] [place] [address] Urobilinogen (U) [Mass/Vol] Negative Normal Negative [facility] UA Auto SS Comment on above: Performed By: #### 4 [id number] #### [facility] [address] [place] [address] URINALYSISOrdered By: SYSTEM SYSTEM on 06-17-2024 Bacteria [...] that meet specific criteria set forth by [facility]. Epithelial cells.squamous Auto (Urine sed) [#/Area] 3-4 graded/HPF Invalid Interpretation Code [facility] UA Auto SS Leukocyte esterase Auto test strip Ql (U) 250 Chante/uL Chante/uL Invalid Interpretation Code NegativeLe u/uL [facility] UA Auto SS Mucus Auto Ql (U) Trace graded/LPF Normal Negati vegr aded/LPF [facility] UA Auto SS Nitrite Auto test strip Ql (U) 1+ mg/dL Invalid Interpretation Code Negativemg /dL [facility] UA Auto SS pH (U) 6.5 *NA* (06/17/24 1:00 PM) Invalid Interpretation Code 5.0 - 9.0 [facility] UA Auto SS RBC Ql (U) 0-3 graded/HPF Normal 0-3graded/ HPF [facility] UA Auto SS Specific gravity (U) [Rel density] 1.011 *NA* (06/17/24 1:00 PM) Invalid Interpretation Code 1.005 - 1.030 [facility] UA Auto SS WBC Auto (Urine sed) [#/Area] 0-5 graded/HPF Normal 0-5graded/ HPF [facility] UA Auto SS URINALYSISOrdered By: Anaid Wells on 06-17-2024 UA Spec Desc Clean Catch (06/17/24 1:00 PM) Normal [facility] UA Auto SS eGFROrdered By: SYSTEM SYSTE #waywire on 06-17-2024 eGFR 76 mL/min/1.73 m2 Normal >=59 [facility] Comment on above: Performed By: #### 1 [id number] #### [facility] [address] [place] [address] Lipid 1996 panelon 4 Cholesterol [Mass/Vol] 140 mg/dL Low 150-200 [facility] Comment on above: Performed By: #### 2 4331-1 #### [facility] ([id number]) [address], [address] [place] [address] Cholesterol in HDL [Mass/Vol] 46 mg/dL Normal >39 [facility] Comment on above: Result Comment: HDL <40 mg/dL - High Risk HDL > or = 40mg/dL- Desirable HDL >60 mg/dL - Negative Risk Performed By: #### 2 4331-1 #### [facility] ([id number]) [address] [place] [address] Cholesterol in LDL [Mass/Vol] 64 mg/dL Normal <130 [facility] Comment on above: Result Comment: LDL <100 mg/dL - Desirable LDL >160 mg/dL - High Risk Performed By: #### 2 4331-1 #### [facility] ([id number]) [address] [place] [address] Cholesterol in VLDL [Mass/Vol] 30 mg/dL Normal 0-30 [facility] Comment on above: Performed By: #### 2 4331-1 #### [facility] ([id number]) [address] [place] [address] CHOLESTEROL:HDL 3.0 Normal 1.0-5.0 [facility] Comment on above: Performed By: #### 2 4331-1 #### [facility] ([id number]) [address] [place] [address] Triglyceride [Mass/Vol] 152 mg/dL High 27-150 [facility] Comment on above: Performed By: #### 2 4331-1 #### [facility] ([id number]) [address] [facility] [place] [address] XR Knee - right 3 [facility] Result: Three views, bilateral PA weight-bearing, sunrise, lateral of the right knee(s) taken today and saved to the permanent medical record are reviewed. Complete loss of medial joint space at right knee, mild PF arthritis with slight lateral tilting of both patella. Moderate lateral compartment narrowing at right knee as well. [facility] XR Knee - right 3 [facility] Study observation (narrative) [facility] XR knee RT 3V - NOT FOR ER U Tyrese 02-05-2024 XR knee RT 3V - NOT FOR ER USE [facility] [address] [place] [address] XRay Report Signed Patient: Carly Cesar MR#: [id number] : 1970 Acct:[id number] Age/Sex: 54 / F ADM Date: 02/05/24 Loc: [facility] Room: Type: [facility] Attending Dr: Mookie Ospina DO Copies to: Mookie Ospina DO Ordering Provider: Mookie Ospina DO Date of Service: 02/05/24 XR/XR knee RT 3V - NOT FOR ER USE: Z98.890 - Other specified postprocedural states RIGHT KNEE - 3 views COMPARISON: 11/25/2023 CLINICAL DATA: Follow-up after right knee arthroscopy. Increased medial pain. Weightbearing AP, lateral and sunrise views were obtained. No acute fracture or dislocation is identified. There is subtle lateral subluxation of the patella on both sides. There is mild to moderate narrowing of the medial tibiofemoral joint compartment. There is slight squaring off the articular margins. There is a trace amount joint fluid. No soft tissue swelling is noted. XR/XR knee RT 3V - NOT FOR ER USE IMPRESSION: MILD DEGENERATIVE CHANGE. Impression dictated by: Alyssa Ambriz M.D.02/05/2024 3:31 PM Dictation Location: [place] [address] Transcribed By: KP 02/05/24 1531 Dictated By: Alyssa Ambriz MD 02/05/24 1529 Signed By: 02/05/24 1531 Normal [facility] - Chemistry and C hemistry - challengeon 12-26-2023 Cholesterol [Mass/Vol] 139 mg/dL [facility] Cholesterol in HDL [Mass/Vol] 43 mg/dL [facility] Cholesterol in LDL [Mass/Vol] 46 mg/dL [facility] Triglyceride [Mass/Vol] 252 mg/dL [facility] Lipid 1996 panelon Cholesterol [Mass/Vol] 139 mg/dL Low 150-200 [facility] Comment on above: Performed By: #### 2 4331-1 #### [facility] ([id number]) [address], [address] [place] [address] Cholesterol in HDL [Mass/Vol] 43 mg/dL Normal >39 [facility] Comment on above: Result Comment: HDL <40 mg/dL - High Risk HDL > or = 40mg/dL- Desirable HDL >60 mg/dL - Negative Risk Performed By: #### 2 4331-1 #### [facility] ([id number]) [address] [place] [address] Cholesterol in LDL [Mass/Vol] 46 mg/dL Normal <130 [facility] Comment on above: Result Comment: LDL <100 mg/dL - Desirable LDL >160 mg/dL - High Risk Performed By: #### 2 4331-1 #### [facility] ([id number]) [address] [place] [address] Cholesterol in VLDL [Mass/Vol] 50 mg/dL High 0-30 [facility] Comment on above: Performed By: #### 2 4331-1 #### [facility] ([id number]) [address] [place] [address] CHOLESTEROL:HDL 3.2 Normal 1.0-5.0 [facility] Comment on above: Performed By: #### 2 4331-1 #### [facility] ([id number]) [address] [place] [address] Triglyceride [Mass/Vol] 252 mg/dL High 27-150 [facility] Comment on above: Performed By: #### 2 4331-1 #### [facility] ([id number]) [address] [place] [address] No Panel Informationon 12-25 VLDL Cholesterol 50 mg/dL [facility] HCG ( test) IA.rapi d Ql (U)Ordered By: Farrah Hinojosa on 12-05-2023 HCG ( test) Ql (U) Negative [facility] Alanine aminotransferase [En zymatic activity/volume] in Serum or PlasmaOrdered By: Mookie Ospina on 12-01-2023 ALT [Catalytic activity/Vol] 19 U/L 7-52 [facility] Albumin [Mass/volume] in Ser um or Plasma by Bromocresol green (BCG) dye binding methoOrdered By: Mookie Ospina on 12-01-2023 Albumin BCG dye [Mass/Vol] 4.2 g/dL 3.5-5.7 [facility] Alkaline phosphatase [Enzyma tic activity/volume] in Serum or PlasmaOrdered By: Mookie Ospina on 12-01-2023 ALP [Catalytic activity/Vol] 58 U/L 34-104 [facility] Aspartate aminotransferase [ Enzymatic activity/volume] in Serum or PlasmaOrdered By: Mookie Ospina on 12-01-2023 AST [Catalytic activity/Vol] 24 U/L 13-39 [facility] Basophils Auto (Bld) [#/Vol] Ordered By: Mookie Ospina on 12-01-2023 Basophils (Bld) [#/Vol] 0.0 10*3/uL 0.0-0.2 [facility] Basophils/100 WBC Auto (Bld) Ordered By: Mookie Ospina on 12-01-2023 Basophils/100 WBC (Bld) 0.4 % . [facility] Bilirubin.total [Mass/volume ] in Serum or PlasmaOrdered By: Mookie Ospina on 12-01-2023 Bilirubin [Mass/Vol] 0.6 mg/dL 0.3-1.0 [facility] Calcium [Mass/volume] in Ser um or PlasmaOrdered By: Mookie Ospina on 12-01-2023 Calcium [Mass/Vol] 8.8 mg/dL 8.6-10.3 [facility] Carbon dioxide, total [Moles /volume] in Serum or PlasmaOrdered By: Mookie Ospina on 12-01-2023 CO2 [Moles/Vol] 29.7 mmol/L 21.0-31.0 [facility] Chloride [Moles/volume] in S kimberley or PlasmaOrdered By: Mookie Ospina on 12-01-2023 Chloride [Moles/Vol] 103 mmol/L 98-107 [facility] Creatinine [Mass/volume] in Serum or PlasmaOrdered By: Mookie Ospina on 12-01-2023 Creatinine [Mass/Vol] 1.02 mg/dL 0.60-1.20 [facility] Eosinophils Auto (Bld) [#/Vo l]Ordered By: Mookie Ospina on 12-01-2023 Eosinophils (Bld) [#/Vol] 0.2 10*3/uL 0.0-0.45 [facility] Eosinophils/100 WBC Auto (Bl d)Ordered By: Mookie Ospina on 12-01-2023 Eosinophils/100 WBC (Bld) 2.4 % . [facility] Erythrocyte distribution wid th Auto (RBC) [Ratio]Ordered By: Mookie Ospina on 12-01-2023 Erythrocyte distribution width (RBC) [Ratio] 13.4 % 11.9-15.3 [facility] Globulin Calc (S) [Mass/Vol] Ordered By: Mookie Ospina on 12-01-2023 Globulin (S) [Mass/Vol] 2.4 g/dL [facility] Glucose [Mass/volume] in Ser um or PlasmaOrdered By: Mookie Ospina on 12-01-2023 Glucose [Mass/Vol] 90 mg/dL 70-100 [facility] Hematocrit Auto (Bld) [Volum e fraction]Ordered By: Mookie Ospina on 12-01-2023 Hematocrit (Bld) [Volume fraction] 41.6 % 34.0-46.4 [facility] Hemoglobin [Mass/volume] in BloodOrdered By: Mookie Ospina on 12-01-2023 Hemoglobin (Bld) [Mass/Vol] 14.1 g/dL 11.8-15.4 [facility] Leukocytes [#/volume] correc dayanna for nucleated erythrocytes in Blood by Automated counOrdered By: Mookie Ospina on 12-01-2023 WBC corrected for nucl RBC Auto (Bld) [#/Vol] 8.1 10*3/uL 3.8-11.6 [facility] Lymphocytes Auto (Bld) [#/Vo l]Ordered By: Mookie Ospina on 12-01-2023 Lymphocytes (Bld) [#/Vol] 1.8 10*3/uL 1.00-4.8 [facility] Lymphocytes/100 WBC Auto (Bl d)Ordered By: Mookie Ospina on 12-01-2023 Lymphocytes/100 WBC (Bld) 21.8 % . [facility] MCH Auto (RBC) [Entitic mass ]Ordered By: Mookie Ospina on 12-01-2023 MCH (RBC) [Entitic mass] 29.8 pg 24.7-34.3 [facility] MCHC Auto (RBC) [Mass/Vol]Or dered By: Mookie Ospina on 12-01-2023 MCHC (RBC) [Mass/Vol] 33.9 g/dL 32.0-35.0 [facility] MCV Auto (RBC) [Entitic vol] Ordered By: Mookie Ospina on 12-01-2023 MCV (RBC) [Entitic vol] 88.0 fL 80-100 [facility] Monocytes Auto (Bld) [#/Vol] Ordered By: Mookie Ospina on 12-01-2023 Monocytes (Bld) [#/Vol] 0.5 10*3/uL 0.0-0.8 [facility] Monocytes/100 WBC Auto (Bld) Ordered By: Mookie Ospina on 12-01-2023 Monocytes/100 WBC (Bld) 5.9 % . [facility] Neutrophils Auto (Bld) [#/Vo l]Ordered By: Mookie Ospina on 12-01-2023 Neutrophils (Bld) [#/Vol] 5.7 10*3/uL 1.8-7.7 [facility] Neutrophils/100 WBC Auto (Bl d)Ordered By: Mookie Ospina on 12-01-2023 Neutrophils/100 WBC (Bld) 69.5 % . [facility] No Panel InformationOrdered By: Mookie Ospina on 12-01-2023 Estimated GFR (CKD-EPI) > 60.0 mL/Min [facility] Creatinine Clearance (Chem N/A [facility] Nucleated erythrocytes [Pres ence] in Blood by Automated countOrdered By: Mookie Ospina on 12-01-2023 Nucleated RBC Auto Ql (Bld) 0.1 /100{WBC} 0-0.5 [facility] Platelet mean volume Auto (B ld) [Entitic vol]Ordered By: Mookie Ospina on 12-01-2023 Platelet mean volume (Bld) [Entitic vol] 9.1 fL 6.3-10.7 [facility] Platelets Auto (Bld) [#/Vol] Ordered By: Mookie Ospina on 12-01-2023 Platelets (Bld) [#/Vol] 250 10*3/uL 150-450 [facility] Potassium [Moles/volume] in Serum or PlasmaOrdered By: Mookie Ospina on 12-01-2023 Potassium [Moles/Vol] 3.7 mmol/L 3.5-5.1 [facility] Protein [Mass/volume] in Ser um or PlasmaOrdered By: Mookie Ospina on 12-01-2023 Protein [Mass/Vol] 6.6 g/dL 6.4-8.9 [facility] RBC Auto (Bld) [#/Vol]Ordere d By: Mookie Ospina on 12-01-2023 RBC (Bld) [#/Vol] 4.72 10*6/uL 3.60-5.00 [facility] Serum or plasma albumin/glob ulin mass ratioOrdered By: Mookie Ospina on 12-01-2023 Albumin/Globulin [Mass ratio] 1.8 {ratio} [facility] Serum or plasma anion gap de terminationOrdered By: Mookie Ospina on 12-01-2023 Anion gap [Moles/Vol] 10.0 mmol/L 6.0-15.0 [facility] Sodium [Moles/volume] in Ser um or PlasmaOrdered By: Mookie Ospina on 12-01-2023 Sodium [Moles/Vol] 139 mmol/L 136-145 [facility] Urea nitrogen [Mass/volume] in Serum or PlasmaOrdered By: Mookie Ospina on 12-01-2023 Urea nitrogen [Mass/Vol] 16 mg/dL 7-25 [facility] WBC Auto (Bld) [#/Vol]Ordere d By: Mookie Ospina on 12-01-2023 WBC (Bld) [#/Vol] 8.1 10*3/uL 3.8-11.6 [facility] 36on 10-27-2023 36 Called and told radha ent to try hinged brace Normal [facility] 36on 10-24-2023 36 Patient has question s about right knee, wonders if milagro can suggest a knee brace for her over the phone. Normal [facility] No Panel Informationon 10-22 Thyroid Stimulating Hormone 3rd Gen 1.32 [facility] Laboratory - Chemistry and C hemistry - challengeon 10-18-2023 Bilirubin Ql (U) Negative [facility] Glucose (U) [Mass/Vol] Negative [facility] Ketones Ql (U) trace [facility] pH (U) 6.5 [pH] [facility] Specific gravity (U) [Rel density] 1.025 [facility] Urobilinogen (U) [Mass/Vol] 1.0 mg/dL [facility] Laboratory - Specimen inform ationon 10-18-2023 Appearance (U) cloudy [facility] Color (U) yellow [facility] Laboratory - Urinalysison Leukocyte esterase Test strip Ql (U) small [facility] Nitrite Ql (U) Negative [facility] Protein Ql (U) Negative [facility] No Panel Informationon 10-17 Urine Occult Blood small [facility] Urine culture routineOrdered By: Darlin Florian on 10-18-2023 Bacteria identified Cx Nom (U) 2 Days [facility] POCT EKGon 09-26-2023 [employer] [facility] 36on 07-23-2023 36 Called and spoke wit h patient she is going to check with PCP first and than call us back if she needs an appointment. [facility] 36 Patient last spoke w kris Madsen 06/30/23 in regards to injection and never received a call back with an answer, please call patient thank you [facility] L Inj/Asp: R subacromial bur saon 07-14-2023 [...] discussed. Consent was given by the patient. [facility] 3607-08-2023 36 Done, thanks [facility] Orders Onlyon 07-08-2023 Orders Only [id number] Hung Cesar 1970 F Date Provider Department Center 07/08/2023 MARISELA SCHWAB MP [facility] Family History Family history unknown: Yes [facility] 36on 07-07-2023 36 Patient calling in f or refill of mobic. She is using [facility] Telephoneon 07-07-2023 Telephone [phone] Hung Cesar 1970 F Date Provider Department Center 07/07/2023 MARISELA SCHWAB MP Family History Family history unknown: Yes [facility] 36on 06-30-2023 36 Called and told radha ent we resubmitted [facility] Orders Onlyon 06-30-2023 Orders Only [id number] Hung Cesar 1970 F Provider Department [place] 06/30/2023 SANDRA SALMERON MP Family History Family history unknown: Yes [facility] 36on 06-27-2023 36 Is lillian approved [facility] [facility] Procedure Visiton 06-05-2023 Procedure Visit [id number] Hung Cesar 1970 [facility] Department [place] 06/05/2023 MARISELA SCHWAB MP Family History Family history unknown: Yes Level of Service:85285 OR OFFICE/OUTPATIENT ESTABLISHED LOW MDM 20 MIN Reason for Visit and Comments: Follow-up [390520] - No pain at the moment, but has been having pain since the CSI wore off. [facility] Letter (Out)on 03-03-2023 Letter (Out) [id number] Hung Cesar 1970 [facility] Department [place] 03/03/2023 None-None [facility] [place] [facility] Family History Family history unknown: Yes [facility] Follow-Upon 02-28-2023 Follow-Up [id number] Hung Cesar 1970 [facility] Department [place] 02/28/2023 MARISELA SCHWAB MP Family History Family history unknown: Yes Level of Service:96187 OR OFFICE/OUTPT VISIT,PROCEDURE ONLY Reason for Visit and Comments: Pain [136] - [facility] 02-19-2023 36 Spoke with patient a nd made an appointment for 02/28/23 [facility] 3602-17-[address] [facility] she got a denial letter in the mail on Friday for the injection you requested. Wants to know what you want to do next? [facility] Telephoneon 02-12-2023 Telephone [id number] Hung Cesar mmy 1970 F Date Provider Department Center 02/12/2023 836-MIKE ARREAGA MP ORTHO MPORTHO Family History Family history unknown: Yes Normal [facility] Follow-Upon 01-31-2023 Follow-Up [id number] Hung Cesar mmy 1970 F Date Provider Department Center 01/31/2023 499-MARISELA GARCIA MP ORTHO MPORTHO Family History Family history unknown: Yes Level of Service:16717 OR OFFICE/OUTPATIENT ESTABLISHED LOW MDM 20-29 MIN Reason for Visit and Comments: Edema [[id number]] - R knee pain with ,mild edema Pain [136] - R knee pain with ,mild edema Follow-up [131390] - R knee pain with ,mild edema Normal [facility] MRI KNEE RT WO CONon 17-2 023 MRI KNEE RT WO CON EXAM: [...] FARRAH GAINES Date: 2022-06-25 17:30 Normal [facility] CBC AUTO DIFFon 04-30-2022 BASO # 0.0 103/ul Normal 0.0-0.1 [facility] Comment on above: Performed By: #### C BC #### [facility] [address] [place] [address] Dr. Asya Mitchell Basophils/100 WBC (Bld) 0.4 % Normal 0.2-2.0 [facility] Comment on above: Performed By: #### C BC #### [facility] [address] [place] [address] Dr. Asya Mitchell EO # 0.2 103/ul Normal 0.0-0.7 [facility] Comment on above: Performed By: #### C BC #### [facility] [address] [place] [address] Dr. Asya Mitchell Eosinophils/100 WBC (Bld) 2.5 % Normal 0.9-7.0 [facility] Comment on above: Performed By: #### C BC #### [facility] [address] [place] [address] Dr. Asya Mitchell Erythrocyte distribution width (RBC) [Ratio] 12.4 % Normal 11.0-15.0 [facility] Comment on above: Performed By: #### C BC #### [facility] [address] [place] [address] Dr. Asya Mitchell Hematocrit (Bld) [Volume fraction] 41.8 % Normal 36.0-48.0 [facility] Comment on above: Performed By: #### C BC #### [facility] [address] [place] [address] Dr. Asya Mitchell Hemoglobin (Bld) [Mass/Vol] 14.0 g/dL Normal 12.0-16.0 [facility] Comment on above: Performed By: #### C BC #### [facility] [address] [place] [address] Dr. Asya Mitchell IG # 0.03 10e3/ul Normal 0.00-0.03 [facility] Comment on above: Performed By: #### C BC #### [facility] [address] [place] [address] Dr. Asya Mitchell IG % 0.4 % Normal 0.0-0.5 [facility] Comment on above: Performed By: #### C BC #### [facility] [address] [place] [address] Dr. Asya Mitchell LYMPH # 2.3 103/ul Normal 1.2-3.8 [facility] Comment on above: Performed By: #### C BC #### [facility] [address] [place] [address] Dr. Asya Mitchell Lymphocytes/100 WBC (Bld) 27.1 % Normal 20.5-60.0 [facility] Comment on above: Performed By: #### C BC #### [facility] [address] [place] [address] Dr. Asya Mitchell MANUAL DIFF REQ NO Normal [facility] Comment on above: Performed By: #### C BC #### [facility] [address] [place] [address] Dr. Asya Mitchell MCH (RBC) [Entitic mass] 29.6 pg Normal 26.7-34.0 [facility] Comment on above: Performed By: #### C BC #### [facility] [address] [place] [address] Dr. Asya Mitchell MCHC (RBC) [Mass/Vol] 33.5 g/dL Normal 29.9-35.2 [facility] Comment on above: Performed By: #### C BC #### [facility] [address] [place] [address] Dr. Asya Mitchell MCV (RBC) [Entitic vol] 88.4 fL Normal 81.0-99.0 [facility] Comment on above: Performed By: #### C BC #### [facility] [address] [place] [address] Dr. Asya Mitchell MONO # 0.6 103/ul Normal 0.3-0.8 [facility] Comment on above: Performed By: #### C BC #### [facility] [address] [place] [address] Dr. Asya Mitchell Monocytes/100 WBC (Bld) 7.4 % Normal 1.7-12.0 [facility] Comment on above: Performed By: #### C BC #### [facility] [address] [place] [address] Dr. Asya Mitchell NEUT # 5.2 103/ul Normal 1.4-6.5 [facility] Comment on above: Performed By: #### C BC #### [facility] [address] [place] [address] Dr. Asya Mitchell Neutrophils/100 WBC (Bld) 62.2 % Normal 43.0-75.0 [facility] Comment on above: Performed By: #### C BC #### [facility] [address] [place] [address] Dr. Asya Mitchell Platelet mean volume (Bld) [Entitic vol] 10.5 fL Normal 9.5-13.5 [facility] Comment on above: Performed By: #### C BC #### [facility] [address] [place] [address] Dr. Asya Mitchell PLT 248 103/ul Normal 150-450 [facility] Comment on above: Performed By: #### C BC #### [facility] [address] [place] [address] Dr. Asya Mitchell RBC 4.73 106/ul Normal 4.20-5.40 [facility] Comment on above: Performed By: #### C BC #### [facility] [address] [place] [address] Dr. Asya Mitchell WBC 8.4 103/ul Normal 4.0-11.0 [facility] Comment on above: Performed By: #### C BC #### [facility] [address] [place] [address] Dr. Asya Mitchell FERRITINon 04-30-2022 Ferritin [Mass/Vol] 46.0 ng/mL Normal 8.0-252.0 [facility] Comment on above: Performed By: #### F ERR, IRON #### [facility] [address] [place] [address] Dr. Asya Mitchell FREE THYROXINE INDEX T7on FTI 2.31 Normal 1.30-4.50 [facility] Comment on above: Performed By: #### T 7, TSH #### [facility] [address] [place] [address] Dr. Asya Mitchell T3U 30.0 % Normal 30.0-39.0 [facility] Comment on above: Performed By: #### T 7, TSH #### [facility] [address] [place] [address] Dr. Asay Mitchell T4 [Mass/Vol] 7.70 ug/dL Normal 4.80-13.90 [facility] Comment on above: Performed By: #### T 7, TSH #### [facility] [address] [place] [address] Dr. Asya Mitchell IRONon 04-30-2022 Iron [Mass/Vol] 85.0 ug/dL Normal 50.0-170.0 [facility] Comment on above: Performed By: #### F ERR, IRON #### [facility] [address] [place] [address] Dr. Asya Mitchell TSHon 04-30-2022 TSH 1.771 uIU/mL Normal 0.358-3.74 0 [facility] Comment on above: Performed By: #### F ERR, IRON #### [facility] [address] [place] [address] SINUSES WO CONon 04-19-20 CT SINUSES WO CON EXAMINATION: CT SINU SES WO CON HISTORY: Chronic sinusitis COMPARISON: No [...] BETH ROACH Date: 2022-04-19 16:19 Normal [facility] MAMM SCREEN 3D EUGENIE CADon 01-18-2022 MG MAMM SCREEN 3D EUGENIE CAD Patient: CARLY CESAR Exam Date: 01/18/2022 : 1970 Gender:F Ordering : DR. CONSUELO BRITO Admission #: [id number] Family : DR CRISTIAN MUÑOZ . Order #: [id number] CLICK HERE TO VIEW EXAM RADIOLOGY REPORT [...] breast cancer at age 61. LOCATION: [facility] BREAST COMPOSITION: Heterogeneously dense,which may obscure [...] MD on 01/18/2022 at 08:59 Normal [facility] Covid-19 PCR (CVDTB)on SARS-CoV-2 (COVID-19) RNA JAMARCUS+probe Ql (Unsp spec) Not detected Normal NOT DETECTED [facility] Comment on above: Result Comment: This test is not yet approved or cleared by the [place] FDA. When there are no FDA-approved or cleared tests available, and other criteria are met, FDA can make tests available under an emergency access mechanism called an Emergency Use Authorization (EUA). The EUA for this test is supported by the Health Professor of Health and Human Service's (HHS's) declaration [...] consistent with SARS-CoV-2. Performed By: #### C VDTB #### [facility] [address] [address] [address] Asya Mitchell XR foot RT min 3V*on 022 XR foot RT min 3V* [facility] [employer] Other XR foot RT min 3V* [facility] [employer] Other XR foot RT min 3V* [address] [place] [address] [employer] Other XR foot RT min 3V* [place] [address] [employer] Other XR foot RT min 3V* XRay Report [employer] Other XR foot RT min 3V* Signed [employer] Other XR foot RT min 3V* Patient: Urbano Cesar E MR#: [id number] [employer] Other XR foot RT min 3V* 351 [employer] Other XR foot RT min 3V* : 1970 Acct:[id number] [employer] Other XR foot RT min 3V* Age/Sex: 51 / F ADM Date: 12/15/21 [employer] Other XR foot RT min 3V* Loc: XDUCLY Room: pe: [facility] [employer] Other XR foot RT min 3V* Attending Dr: Bernarda WERNER [employer] Other XR foot RT min 3V* Copies to: WAI To [employer] Other XR foot RT min 3V* Ordering Provider: DEBBI Hussein [employer] Other XR foot RT min 3V* Date of Service: 12/15/21 [employer] Other XR foot RT min 3V* [id number]) XR/XR foot RT min 3V*: Toe pain, right [employer] Other XR foot RT min 3V* [address] ain film [employer] Other XR foot RT min 3V* COMPARISON:None N [employer] Other XR foot RT min 3V* HISTORY:RIGHT 4th to e injury. [employer] Other XR foot RT min 3V* No fracture, disloca tion or focal soft tissue abnormality seen. [employer] Other XR foot RT min 3V* X R/XR foot RT min 3V* [employer] Other XR foot RT min 3V* IMPRESSION:No acute findings [employer] Other XR foot RT min 3V* Impression dictated by: Brijesh Rouse M.D.12/15/2021 9:44 AM [employer] Other XR foot RT min 3V* Dictation Location: [place] [address] [employer] Other XR foot RT min 3V* Transcribed By: [facility] 12/15/21 09 [employer] Other XR foot RT min 3V* Dictated By: Nnamdi Rouse DO 12/15/21 0943 [place] [employer] Other XR foot RT min 3V* Signed By: [employer] Other XR foot RT min 3V* 12/15/[address] [facility] [employer] Other XR wrist RT min 3V*on 2021 XR wrist RT min 3V* [facility] [employer] Other XR wrist RT min 3V* [facility] [employer] Other XR wrist RT min 3V* [address] [place] [address] [employer] Other XR wrist RT min 3V* [place] [address] [employer] Other XR wrist RT min 3V* XRay Report [facility] [employer] Other XR wrist RT min 3V* Signed [employer] Other XR wrist RT min 3V* Patient: Urbano Cesar paulo E MR#: [id number] [employer] Other XR wrist RT min 3V* 351 [employer] Other XR wrist RT min 3V* : 1970 Acct:[id number] [employer] Other XR wrist RT min 3V* Age/Sex: 51 / F ADM Date: 08/10/21 [employer] Other XR wrist RT min 3V* Loc: XDUCLY Room: Ty pe: REG CLI [employer] Other XR wrist RT min 3V* Attending Dr: Mila Akers NP [employer] Other XR wrist RT min 3V* Ordering Provider: Mila Belcher NP [employer] Other XR wrist RT min 3V* Date of Service: 08/10/21 [employer] Other XR wrist RT min 3V* [id number]) XR/XR wrist RT min 3V*: Right wrist pain [employer] Other XR wrist RT min 3V* Copies to: Mila Akers NP [employer] Other XR wrist RT min 3V* XR wrist RT min 3V* 08/10/2021 9:29 AM [employer] Other XR wrist RT min 3V* SIGNS AND SYMPTOMS: Right wrist pain for one week. Pain over the radial aspect of the wrist with [employer] Other XR wrist RT min 3V* numbness and tinglin g into fingers. [employer] Other XR wrist RT min 3V* PROTOCOL: Frontal, lateral, and oblique radiographs of the right wrist [employer] Other XR wrist RT min 3V* COMPARISON: None [employer] Other XR wrist RT min 3V* FINDINGS: [employer] Other XR wrist RT min 3V* The bones are in huan tomic alignment. The joint spaces are preserved. There is no evidence of [employer] Other XR wrist RT min 3V* fracture or dislocat ion. No soft tissue swelling. [employer] Other XR wrist RT min 3V* X R/XR wrist RT min 3V* [employer] Other XR wrist RT min 3V* IMPRESSION: [place] [employer] Other XR wrist RT min 3V* No acute bony injury. [employer] Other XR wrist RT min 3V* No significant degenerative change. [employer] Other XR wrist RT min 3V* No soft tissue swelling. [employer] Other XR wrist RT min 3V* Impression dictated by: Tristen La M.D.08/10/2021 9:47 AM [employer] Other XR wrist RT min 3V* Dictation Location: [place] [address] [employer] Other XR wrist RT min 3V* Transcribed By: KP 08/10/21 0947 [employer] Other XR wrist RT min 3V* Dictated By: Tristen La II, MD 08/10/21 0944 [employer] Other XR wrist RT min 3V* Signed By: [employer] Other XR wrist RT min 3V* 08/10/21 0947 No rt [employer] Other Cytologyon 07-19-2019 Cytology (NOTE) [id number] [employer] [facility] [employer] ANATOMIC PATHOLOGY [address] [place] [address]. 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 - Endocervical/transformatio n zone component present. Descriptive Diagnosis: Negative for intraepithelial lesion or malignancy. Cancer Registry Coordinator: LARUA Payne(ASCP) Electronically Signed Out azael/07/28/2019 Normal [facility] Comment on above: Performed By: #### P PPVP #### [facility] [address] [place] [address] Electrocardiographic Technician: Zechariah Williamson MD Vital Signs Date Time Vital Sign Value Performing Clinician Facility 01-18-2025 08:26-0400 Body height 156.59 cm Cristian Muñoz MD Work Phone: [facility] 01-18-2025 08:26-0400 Body mass index (BMI) [Ratio] 28.9 kg/m2 Cristian Muñoz MD Work Phone: [facility] 01-18-2025 08:26-0400 Body weight 71 kg Cristian Muñoz MD Work Phone: [facility] 01-18-2025 08:26-0400 Diastolic blood pressure 81 mm[Hg] Cristian Muñoz MD Work Phone: [facility] 01-18-2025 08:26-0400 Heart rate 83 /min Cristian Muñoz MD Work Phone: [facility] 01-18-2025 08:26-0400 Respiratory rate 18 /min Cristian Muñoz MD Work Phone: [facility] 01-18-2025 08:26-0400 SaO2% (BldA) [Mass fraction] 98 % Cristian Muñoz MD Work Phone: [facility] 01-18-2025 08:26-0400 Systolic blood pressure 126 mm[Hg] Cristian Muñoz MD Work Phone: [facility] 12-30-2024 08:11-0400 Body height 156.59 cm rCistian Muñoz MD Work Phone: [facility] 12-30-2024 08:11-0400 Body mass index (BMI) [Ratio] 39.1 kg/m2 Cristian Muñoz MD Work Phone: [facility] 12-30-2024 08:11-0400 Body weight 96.02 kg Cristian Muñoz MD Work Phone: [facility] 12-27-2024 09:03-0400 Body height 157.5 cm Clint Boogie DO Work Phone: [facility] 12-27-2024 09:03-0400 Body mass index (BMI) [Ratio] 28.68 kg/m2 Clint Boogie DO Work Phone: [facility] 12-27-2024 09:03-0400 Body weight 71.12 kg Clint Boogie DO Work Phone: [facility] 11-22-2024 08:22-0400 Body height 156.59 cm Cristian Muñoz MD Work Phone: [facility] 11-22-2024 08:22-0400 Body mass index (BMI) [Ratio] 29.2 kg/m2 Cristian Muñzo MD Work Phone: [facility] 11-22-2024 08:22-0400 Body weight 71.55 kg Cristian Muñoz MD Work Phone: [facility] 10-26-2024 08:30-0400 Body height 158.5 cm Cristian Muñoz MD Work Phone: [facility] 10-26-2024 08:30-0400 Body mass index (BMI) [Ratio] 27.8 kg/m2 Cristian Muñoz MD Work Phone: [facility] 10-26-2024 08:30-0400 Body weight 70.1 kg Cristian Muñoz MD Work Phone: [facility] 10-26-2024 08:30-0400 Diastolic blood pressure 81 mm[Hg] Cristian Muñoz MD Work Phone: [facility] 10-26-2024 08:30-0400 Heart rate 89 /min Cristian Muñoz MD Work Phone: [facility] 10-26-2024 08:30-0400 Respiratory rate 18 /min Cristian Muoñz MD Work Phone: [facility] 10-26-2024 08:30-0400 SaO2% (BldA) [Mass fraction] 99 % Cristian Muñoz MD Work Phone: [facility] 10-26-2024 08:30-0400 Systolic blood pressure 118 mm[Hg] Cristian Muñoz MD Work Phone: [facility] 09-27-2024 07:49-0400 Body height 157.5 cm Zahira Tim PA-C Work Phone: [facility] 09-27-2024 07:49-0400 Body mass index (BMI) [Ratio] 28.35 kg/m2 Zahira Tim PA-C Work Phone: [facility] 09-27-2024 07:49-0400 Body weight 70.31 kg Zahira Tim PA-C Work Phone: [facility] 09-27-2024 07:49-0400 Diastolic blood pressure 80 mm[Hg] Zahira Tim PA-C Work Phone: [facility] 09-27-2024 07:49-0400 Heart rate 94 /min Zahira Tim PA-C Work Phone: [facility] 09-27-2024 07:49-0400 SaO2% (BldA) [Mass fraction] 99 % Zahira Tim PA-C Work Phone: [facility] 09-27-2024 07:49-0400 Systolic blood pressure 116 mm[Hg] Zahirastephanie Tim PA-C Work Phone: [facility] 09-23-2024 09:19-0400 Body height 157.5 cm Clint Boogie DO Work Phone: [facility] 09-23-2024 09:19-0400 Body mass index (BMI) [Ratio] 32.01 kg/m2 Clint Boogie DO Work Phone: [facility] 09-23-2024 09:19-0400 Body weight 79.38 kg Clint Boogie DO Work Phone: [facility] 08-03-2024 08:49-0500 Body height 158.[address] [facility] 08-03-2024 08:49-0500 Body mass index (BMI) [Ratio] 29.2 kg/m2 [facility] 08-03-2024 08:49-0500 Body weight 73.[address] [facility] 08-03-2024 08:49-0500 Diastolic blood pressure 87 mm[Hg] [facility] 08-03-2024 08:49-0500 Heart rate 93 /min [facility] 08-03-2024 08:49-0500 Respiratory rate 18 /min [facility] 08-03-2024 08:49-0500 SaO2% (BldA) [Mass fraction] 98 % [facility] 08-03-2024 08:49-0500 Systolic blood pressure 121 mm[Hg] [facility] 07-15-2024 13:56-0500 Body height 157.5 cm Clint Boogie DO Work Phone: [facility] 07-15-2024 13:56-0500 Body mass index (BMI) [Ratio] 32.01 kg/m2 Clint oBogie DO Work Phone: [facility] 07-15-2024 13:56-0500 Body weight 79.38 kg Clint Boogie DO Work Phone: [facility] 06-30-2024 14:49-0500 Heart rate 82 /min Clintsiri Boogie [facility] 06-30-2024 14:49-0500 SaO2% (BldA) [Mass fraction] 97 % Clint Boogie [facility] 06-30-2024 14:49-0500 Respiratory rate 18 /min Clint Boogie [facility] 06-30-2024 14:49-0500 Diastolic blood pressure 78 mm[Hg] Clint Boogie [facility] 06-30-2024 14:49-0500 Mean blood pressure 89 mm[Hg] Clint Boogie [facility] 06-30-2024 14:49-0500 Systolic blood pressure 112 mm[Hg] Clint Boogie [facility] 06-30-2024 11:49-0500 SaO2% (BldA) [Mass fraction] 97 % Clint Boogie [facility] 06-30-2024 11:32-0500 Heart rate 78 /min Clint Boogie [facility] 06-30-2024 11:32-0500 SaO2% (BldA) [Mass fraction] 99 % Clint Boogie [facility] 06-30-2024 11:32-0500 Respiratory rate 18 /min Clint Boogie [facility] 06-30-2024 11:30-0500 Diastolic blood pressure 75 mm[Hg] Clint Boogie [facility] 06-30-2024 11:30-0500 Mean blood pressure 88 mm[Hg] Clint Boogie [facility] 06-30-2024 11:30-0500 Systolic blood pressure 114 mm[Hg] Clint Boogie [facility] 06-30-2024 11:30-0500 Body temperature 97.88 [degF] Clint Boogie [facility] 06-30-2024 11:20-0500 Body temperature 97.88 [degF] Clint Brown [facility] 06-30-2024 11:20-0500 Diastolic blood pressure 71 mm[Hg] Clint Brown [facility] 06-30-2024 11:20-0500 Heart rate 78 /min Clint Brown [facility] 06-30-2024 11:20-0500 Mean blood pressure 81 mm[Hg] Clint Brown [facility] 06-30-2024 11:20-0500 Respiratory rate 17 /min Clint Brown [facility] 06-30-2024 11:20-0500 Systolic blood pressure 101 mm[Hg] Clint Brown [facility] 06-30-2024 11:10-0500 Mean blood pressure 74 mm[Hg] Clint Brown [facility] 06-30-2024 11:10-0500 Respiratory rate 15 /min Clint Brown [facility] 06-30-2024 11:05-0500 Mean blood pressure 81 mm[Hg] Clint Brown [facility] 06-30-2024 11:05-0500 Respiratory rate 18 /min Clint Brown [facility] 06-30-2024 10:56-0500 Body temperature 97.88 [degF] Clint Brown [facility] 06-30-2024 06:54-0500 Mean blood pressure 92 mm[Hg] Clint Brown [facility] 06-30-2024 06:53-0500 Respiratory rate 16 /min Clint Brown [facility] 06-30-2024 06:53-0500 Body temperature 97.7 [degF] Clint Boogie [facility] 06-30-2024 06:52-0500 Blood Pressure Location Clint Boogie [facility] 06-17-2024 14:09-0500 Body height 157.5 cm Clint Boogie DO Work Phone: [facility] 06-17-2024 14:09-0500 Body mass index (BMI) [Ratio] 32.01 kg/m2 Clint Boogie DO Work Phone: [facility] 06-17-2024 14:09-0500 Body weight 79.38 kg Clint Boogie DO Work Phone: [facility] 06-17-2024 12:36-0500 Diastolic blood pressure 84 mm[Hg] Clint Boogie [facility] 06-17-2024 12:36-0500 Heart rate 86 /min Clint Boogie [facility] 06-17-2024 12:36-0500 Mean blood pressure 100 mm[Hg] Clint Boogie [facility] 06-17-2024 12:36-0500 Systolic blood pressure 133 mm[Hg] Clint Boogie [facility] 06-17-2024 12:35-0500 Heart rate 82 /min Clint Boogie [facility] 06-17-2024 12:35-0500 SaO2% (BldA) [Mass fraction] 96 % Clint Boogie [facility] 06-17-2024 12:34-0500 Respiratory rate 18 /min Clint Boogie [facility] 06-17-2024 12:34-0500 Diastolic blood pressure 84 mm[Hg] Clint Boogie [facility] 06-17-2024 12:34-0500 Mean blood pressure 97 mm[Hg] Clint Boogie [facility] 06-17-2024 12:34-0500 Systolic blood pressure 125 mm[Hg] Clint Boogie [facility] 04-15-2024 08:49-0500 Body height 157.5 cm Clint Boogie DO Work Phone: [facility] 04-15-2024 08:49-0500 Body mass index (BMI) [Ratio] 32.01 kg/m2 Clint Boogie DO Work Phone: [facility] 04-15-2024 08:49-0500 Body weight 79.38 kg Clint Boogie DO Work Phone: [facility] 03-12-2024 10:17-0400 Body height 158.5 cm MD Cristian Muñoz Work Phone: [facility] 03-12-2024 10:17-0400 Body mass index (BMI) [Ratio] 33.3 kg/m2 MD Cristian Muñoz Work Phone: [facility] 03-12-2024 10:17-0400 Body weight 83.65 kg MD Cristian Muñoz Work Phone: [facility] 03-12-2024 10:17-0400 Diastolic blood pressure 76 mm[Hg] MD Cristian Muñoz Work Phone: [facility] 03-12-2024 10:17-0400 Heart rate 79 /min MD Cristian Muñoz Work Phone: [facility] 03-12-2024 10:17-0400 Respiratory rate 18 /min MD Cristain Muñoz Work Phone: [facility] 03-12-2024 10:17-0400 SaO2% (BldA) [Mass fraction] 99 % MD Cristian Muñoz Work Phone: [facility] 03-12-2024 10:17-0400 Systolic blood pressure 120 mm[Hg] MD Cristian Muñoz Work Phone: [facility] 01-19-2024 10:44-0400 Body height 158.75 cm PHYSICIAN NO [facility] 01-19-2024 10:44-0400 Body mass index (BMI) [Ratio] 33.6 kg/m2 PHYSICIAN NO [facility] 01-19-2024 10:44-0400 Body weight 84.85 kg PHYSICIAN NO [facility] 01-19-2024 10:44-0400 Diastolic blood pressure 67 mm[Hg] PHYSICIAN NO [facility] 01-19-2024 10:44-0400 Heart rate 96 /min PHYSICIAN NO [facility] 01-19-2024 10:44-0400 Respiratory rate 18 /min PHYSICIAN NO [facility] 01-19-2024 10:44-0400 SaO2% (BldA) [Mass fraction] 97 % PHYSICIAN NO [facility] 01-19-2024 10:44-0400 Systolic blood pressure 119 mm[Hg] PHYSICIAN NO [facility] 2024 09:58-0400 Body mass index (BMI) [Ratio] 34.39 kg/m2 Darron Bond MD Work Phone: [facility] 2024 09:58-0400 Body weight 85.28 kg Darron Bond MD Work Phone: [facility] 2024 09:58-0400 Diastolic blood pressure 79 mm[Hg] Darron Bond MD Work Phone: [facility] 2024 09:58-0400 Heart rate 86 /min Darron Bond MD Work Phone: [facility] 2024 09:58-0400 Systolic blood pressure 121 mm[Hg] Darron Bond MD Work Phone: [facility] 12-05-2023 10:20-0400 Diastolic blood pressure 57 mm[Hg] MD Cristian Muñoz Work Phone: [facility] 12-05-2023 10:20-0400 Heart rate 75 /min MD Cristian Muñoz Work Phone: [facility] 12-05-2023 10:20-0400 Respiratory rate 14 /min MD Cristian Muñoz Work Phone: [facility] 12-05-2023 10:20-0400 SaO2% (BldA) [Mass fraction] 91 % MD Cristian Muñoz Work Phone: [facility] 12-05-2023 10:20-0400 Systolic blood pressure 97 mm[Hg] MD Cristian Muñoz Work Phone: [facility] 12-05-2023 09:30-0400 Body temperature 98 [degF] MD Cristian Muñoz Work Phone: [facility] 12-05-2023 09:07-0400 Inhaled oxygen flow rate 8 L/min MD Cristian Muñoz Work Phone: [facility] 12-05-2023 07:10-0400 Body height 158.75 cm MD Cristian Muñoz Work Phone: [facility] 12-05-2023 07:10-0400 Body mass index (BMI) [Ratio] 35.6 kg/m2 MD Cristian Muñoz Work Phone: [facility] 12-05-2023 07:10-0400 Body weight 90 kg MD Cristian Muñoz Work Phone: [facility] 11-25-2023 10:59-0400 Body height 156.21 cm MD Cristian Muñoz Work Phone: [facility] 11-25-2023 10:59-0400 Body mass index (BMI) [Ratio] 37.5 kg/m2 MD Cristian Muñoz Work Phone: [facility] 11-25-2023 10:59-0400 Body weight 91.71 kg MD Cristian Muñoz Work Phone: [facility] 11-24-2023 10:18-0400 Body height 156.21 cm MD Cristian Muñoz Work Phone: [facility] 11-24-2023 10:18-0400 Body mass index (BMI) [Ratio] 37.5 kg/m2 MD Cristian Muñoz Work Phone: [facility] 11-24-2023 10:18-0400 Body weight 91.71 kg MD Cristian Muñoz Work Phone: [facility] 11-24-2023 10:18-0400 Diastolic blood pressure 70 mm[Hg] MD Cristian Muñoz Work Phone: [facility] 11-24-2023 10:18-0400 Heart rate 85 /min MD Cristian Muñoz Work Phone: [facility] 11-24-2023 10:18-0400 Respiratory rate 18 /min MD Cristian Muñoz Work Phone: [facility] 11-24-2023 10:18-0400 SaO2% (BldA) [Mass fraction] 96 % MD Cristian Muñoz Work Phone: [facility] 11-24-2023 10:18-0400 Systolic blood pressure 107 mm[Hg] MD Cristian Muñoz Work Phone: [facility] 10-18-2023 14:03-0400 Body height 156.21 cm MD Cristian Muñoz Work Phone: [facility] 10-18-2023 14:03-0400 Body mass index (BMI) [Ratio] 37.9 kg/m2 MD Cristian Muñoz Work Phone: [facility] 10-18-2023 14:03-0400 Body temperature 98 [degF] MD Cristian Muñoz Work Phone: [facility] 10-18-2023 14:03-0400 Body weight 92.58 kg MD Cristian Muñoz Work Phone: [facility] 10-18-2023 14:03-0400 Diastolic blood pressure 66 mm[Hg] MD Cristian Muñoz Work Phone: [facility] 10-18-2023 14:03-0400 Heart rate 94 /min MD Cristian Muñoz Work Phone: [facility] 10-18-2023 14:03-0400 Respiratory rate 18 /min MD Cristian Muñoz Work Phone: [facility] 10-18-2023 14:03-0400 SaO2% (BldA) [Mass fraction] 95 % MD Cristian Muñoz Work Phone: [facility] 10-18-2023 14:03-0400 Systolic blood pressure 112 mm[Hg] MD Cristian Muñoz Work Phone: [facility] 09-29-2023 08:25-0400 Body height 156.21 cm MD Cristian Muñoz Work Phone: [facility] 09-29-2023 08:25-0400 Body mass index (BMI) [Ratio] 37.3 kg/m2 MD Cristian Muñoz Work Phone: [facility] 09-29-2023 08:25-0400 Body weight 91.25 kg MD Cristian Muñoz Work Phone: [facility] 09-29-2023 08:25-0400 Diastolic blood pressure 72 mm[Hg] MD Cristian Muñoz Work Phone: [facility] 09-29-2023 08:25-0400 Heart rate 81 /min MD Cristian Muñoz Work Phone: [facility] 09-29-2023 08:25-0400 Respiratory rate 18 /min MD Cristian Muñoz Work Phone: [facility] 09-29-2023 08:25-0400 SaO2% (BldA) [Mass fraction] 96 % MD Cristian Muñoz Work Phone: [facility] 09-29-2023 08:25-0400 Systolic blood pressure 115 mm[Hg] MD Cristian Muñoz Work Phone: [facility] 09-26-2023 08:04-0400 Body height 157.5 cm Deisy Simmons MD Work Phone: [facility] 09-26-2023 08:04-0400 Body mass index (BMI) [Ratio] 37.28 kg/m2 Deisy Simmons MD Work Phone: [facility] 09-26-2023 08:04-0400 Body weight 92.44 kg Deisy Simmons MD Work Phone: [facility] 09-26-2023 08:04-0400 Diastolic blood pressure 88 mm[Hg] Deisy Simmons MD Work Phone: [facility] 09-26-2023 08:04-0400 Heart rate 90 /min Deisy Simmons MD Work Phone: [facility] 09-26-2023 08:04-0400 SaO2% (BldA) [Mass fraction] 98 % Deisy Simmons MD Work Phone: [facility] 09-26-2023 08:04-0400 Systolic blood pressure 118 mm[Hg] Deisy Simmons MD Work Phone: [facility] 07-31-2023 08:17-0500 Body height 156.21 cm MD Cristian Muñoz Work Phone: [facility] 07-31-2023 08:17-0500 Body mass index (BMI) [Ratio] 38.7 kg/m2 MD Cristian Muñoz Work Phone: [facility] 07-31-2023 08:17-0500 Body weight 94.43 kg MD Cristian Muñzo Work Phone: [facility] 07-31-2023 08:17-0500 Diastolic blood pressure 78 mm[Hg] MD Cristian Muñoz Work Phone: [facility] 07-31-2023 08:17-0500 Heart rate 81 /min MD Cristian Muñoz Work Phone: [facility] 07-31-2023 08:17-0500 Respiratory rate 18 /min MD Cristian Muñoz Work Phone: [facility] 07-31-2023 08:17-0500 SaO2% (BldA) [Mass fraction] 97 % MD Cristian Muñoz Work Phone: [facility] 07-31-2023 08:17-0500 Systolic blood pressure 128 mm[Hg] MD Cristian Muñoz Work Phone: [facility] 05-21-2023 08:30-0500 Body height 156.21 cm [employer] Other [employer] Other 05-21-2023 08:30-0500 Body mass index (BMI) [Ratio] 38.66 kg/m2 [employer] Other [employer] Other 05-21-2023 08:30-0500 Body weight 94.35 kg [employer] Other [employer] Other 05-21-2023 08:30-0500 Diastolic blood pressure 71 mm[Hg] [employer] Other [employer] Other 05-21-2023 08:30-0500 Respiratory rate 16 /min [employer] Other [employer] Other 05-21-2023 08:30-0500 SaO2% (BldA) [Mass fraction] 98 % [employer] Other [employer] Other 05-21-2023 08:30-0500 Systolic blood pressure 122 mm[Hg] [employer] Other [employer] Other 03-19-2023 08:30-0400 Body height 156.21 cm [employer] Other [employer] Other 03-19-2023 08:30-0400 Body mass index (BMI) [Ratio] 38.59 kg/m2 Mitchel Baeza Other [employer] Other 03-19-2023 08:30-0400 Body weight 94.17 kg Mitchelshelly Baeza Other [employer] Other 03-19-2023 08:30-0400 Diastolic blood pressure 75 mm[Hg] Mitchel Baeza Other [employer] Other 03-19-2023 08:30-0400 Respiratory rate 16 /min Mitchel Baeza Other [employer] Other 03-19-2023 08:30-0400 SaO2% (BldA) [Mass fraction] 97 % Mitchel Baeza Other [employer] Other 03-19-2023 08:30-0400 Systolic blood pressure 121 mm[Hg] Mitchel Baeza Other [employer] Other 02-05-2023 11:15-0400 Body height 156.21 cm Megan Coats Other [employer] Other 02-03-2023 08:30-0400 Body height 156.21 cm Mitchel Baeza Other [employer] Other 02-03-2023 08:30-0400 Body mass index (BMI) [Ratio] 39.5 kg/m2 Mitchel Baeza Other [employer] Other 02-03-2023 08:30-0400 Body weight 96.39 kg Mitchel Baeza Other [employer] Other 02-03-2023 08:30-0400 Diastolic blood pressure 80 mm[Hg] Mitchel Baeza Other [employer] Other 02-03-2023 08:30-0400 Respiratory rate 18 /min Mitchel Baeza Other [employer] Other 02-03-2023 08:30-0400 SaO2% (BldA) [Mass fraction] 96 % Mitchel Baeza Other [employer] Other 02-03-2023 08:30-0400 Systolic blood pressure 123 mm[Hg] Mitchel Baeza Other [employer] Other 01-06-2023 10:15-0400 Body height 156.21 cm Megan Coats Other [employer] Other 01-02-2023 08:30-0400 Body height 156.21 cm Mitchel Baeza Other [employer] Other 01-02-2023 08:30-0400 Body mass index (BMI) [Ratio] 39.35 kg/m2 Mitchel Baeza Other [employer] Other 01-02-2023 08:30-0400 Body weight 96.03 kg Mitchel Baeza Other [employer] Other 01-02-2023 08:30-0400 Diastolic blood pressure 71 mm[Hg] Mitchel Baeza Other [employer] Other 01-02-2023 08:30-0400 Respiratory rate 16 /min Mitchel Baeza Other [employer] Other 01-02-2023 08:30-0400 SaO2% (BldA) [Mass fraction] 97 % Mitchel Baeza Other [employer] Other 01-02-2023 08:30-0400 Systolic blood pressure 125 mm[Hg] Mitchel Baeza Other [employer] Other 12-15-2021 10:00-0400 Body height 157.48 cm Bernarda Buimond Other [employer] Other 12-15-2021 10:00-0400 Body mass index (BMI) [Ratio] 38.95 kg/m2 Bernarda Elizabet Other [employer] Other 12-15-2021 10:00-0400 Body temperature 97.1 [degF] Bernarda Elizabet Other [employer] Other 12-15-2021 10:00-0400 Body weight 96.62 kg Bernarda Elizabet Other [employer] Other 12-15-2021 10:00-0400 Diastolic blood pressure 76 mm[Hg] Bernarda Elizabet Other [employer] Other 12-15-2021 10:00-0400 Respiratory rate 18 /min Bernarda Elizabet Other [employer] Other 12-15-2021 10:00-0400 SaO2% (BldA) [Mass fraction] 98 % Bernarda Elizabet Other [employer] Other 12-15-2021 10:00-0400 Systolic blood pressure 128 mm[Hg] Bernarda Elizabet Other [employer] Other 08-10-2021 10:00-0500 Body height 157.48 cm Imla Akers Other [employer] Other 08-10-2021 10:00-0500 Body mass index (BMI) [Ratio] 37.31 kg/m2 Mila Akers Other [employer] Other 08-10-2021 10:00-0500 Body temperature 96.7 [degF] Mila Akers Other [employer] Other 08-10-2021 10:00-0500 Body weight 92.53 kg Mila Akers Other [employer] Other 08-10-2021 10:00-0500 Diastolic blood pressure 80 mm[Hg] Mila Akers Other [employer] Other 08-10-2021 10:00-0500 Respiratory rate 18 /min Mila Akers Other [employer] Other 08-10-2021 10:00-0500 SaO2% (BldA) [Mass fraction] 99 % Mila Akers Other [employer] Other 08-10-2021 10:00-0500 Systolic blood pressure 122 mm[Hg] Mila Akers Other [employer] Other Encounters Encounter Date Encounter Type Care Provider Facility Start: 01-18-2025 End: 01-18-2025 ambulatory Cristian Muñoz MD Work Phone: [facility] Work Phone: Start: 01-18-2025 End: 01-18-2025 Patient encounter procedure Sandra Jules MD -[facility] Work Phone: Start: 01-06-2025 End: 01-06-2025 Refill Corinne Torres PA-C Work Phone: [facility] Comment on above: Med Refill Start: 12-30-2024 End: 12-30-2024 ambulatory Cristian Muñoz MD Work Phone: [facility] Work Phone: Start: 12-30-2024 End: 12-30-2024 Patient encounter procedure Yousuf Claudio [facility] Work Phone: Start: 12-27-2024 End: 12-27-2024 Patient encounter procedure Clint Boogie DO Work Phone: [facility] Comment on above: S/P total knee arthr oplasty, right (Primary Dx) Start: 12-27-2024 End: 12-27-2024 ambulatory CLINT BOOGIE Not Available Start: 12-27-2024 End: 12-27-2024 ambulatory CLINT BOOGIE Not Available Start: 11-25-2024 End: 11-25-2024 Patient encounter procedure Sandra Jules MD -[facility] Work Phone: Start: 11-25-2024 End: 11-25-2024 ambulatory Sandra Jules Facility:[facility] Start: 11-22-2024 End: 11-22-2024 Patient encounter procedure Yousuf Claudio [facility] Work Phone: Start: 10-26-2024 End: 10-26-2024 Patient encounter procedure Sandra Jules MD [facility] Work Phone: Start: 10-16-2024 End: 10-20-2024 Refill Dayton Rivera MD Work Phone: [facility] Comment on above: Med Refill Start: 09-27-2024 End: 09-27-2024 Office outpatient visit 15 minutes Zahira Tim PA-C Work Phone: [facility] Comment on above: Family history of he art disease (Primary Dx); Primary hypertension; Dyslipidemia; Overweight (BMI 25.0-29.9) Start: 09-27-2024 End: 09-27-2024 ambulatory ZAHIRA TIM [facility] Start: 09-23-2024 End: 09-23-2024 Patient encounter procedure Clint Boogie DO Work Phone: [facility] Comment on above: S/P total knee arthr oplasty, right (Primary Dx) Start: 09-23-2024 End: 09-23-2024 ambulatory CLINT A BROWN Not Available Start: 09-23-2024 End: 09-23-2024 ambulatory CLINT A BROWN Not Available Start: 08-12-2024 End: 08-12-2024 ambulatory CLINT A BROWN Not Available Start: 08-12-2024 End: 08-12-2024 ambulatory CLINT A BROWN Not Available Start: 08-03-2024 End: 08-03-2024 ambulatory [facility] Work Phone: Start: 08-03-2024 End: 08-03-2024 Patient encounter procedure [facility] Work Phone: Start: 07-16-2024 End: 07-16-2024 Clinical Support Simi Aragon PT Work Phone: [facility] Comment on above: Primary osteoarthrit is of right knee (Primary Dx); Difficulty walking; Acute postoperative pain of right knee; Status post right knee replacement Start: 07-15-2024 End: 07-15-2024 Patient encounter procedure Clint Brown Chuyita DO Work Phone: [facility] Comment on above: S/P total knee arthr oplasty, right (Primary Dx) Start: 07-15-2024 End: 07-15-2024 ambulatory CLINT A BROWN Not Available Start: 07-15-2024 End: 07-15-2024 ambulatory CLINT A BROWN Not Available Start: 07-14-2024 End: 07-14-2024 Clinical Support Simi Aragon PT Work Phone: [facility] Comment on above: Primary osteoarthrit is of right knee (Primary Dx); Difficulty walking; Acute postoperative pain of right knee; Status post right knee replacement Start: 07-13-2024 End: 07-13-2024 ambulatory SIMI ARAGON Not Available Start: 07-13-2024 End: 07-13-2024 Telephone encounter Sunshine Lazo [employer] [facility] Comment on above: DISREGARD Start: 07-12-2024 End: 07-12-2024 Clinical Support Simi Aragon PT Work Phone: [facility] Comment on above: Primary osteoarthrit is of right knee (Primary Dx); Difficulty walking; Acute postoperative pain of right knee; Status post right knee replacement Start: 07-09-2024 End: 07-09-2024 Clinical Support Simi Aragon PT Work Phone: [facility] Comment on above: Primary osteoarthrit is of right knee (Primary Dx); Difficulty walking; Acute postoperative pain of right knee; Status post right knee replacement Start: 07-08-2024 End: 07-08-2024 ambulatory SIMI ARAGON Not Available Start: 07-07-2024 End: 07-07-2024 Clinical Support Simi Aragon PT Work Phone: [facility] Comment on above: Primary osteoarthrit is of right knee (Primary Dx); Difficulty walking; Acute postoperative pain of right knee; Status post right knee replacement Start: 07-05-2024 End: 07-05-2024 Clinical Support Simi Aragon PT Work Phone: [facility] Comment on above: Primary osteoarthrit is of right knee (Primary Dx); Difficulty walking; Acute postoperative pain of right knee; Status post right knee replacement Start: 07-05-2024 End: 07-05-2024 ambulatory SIMI ARAGON Not Available Start: 07-01-2024 End: 07-01-2024 Clinical Support Simi Aragon PT Work Phone: [facility] Comment on above: Primary osteoarthrit is of right knee (Primary Dx); Difficulty walking; Acute postoperative pain of right knee; Status post right knee replacement Start: 06-30-2024 End: 06-30-2024 Admission to same day surgery center Clint Boogie [facility] Start: 06-30-2024 End: 06-30-2024 ambulatory DO Clint Boogie Facility:[facility] Start: 06-24-2024 End: 06-24-2024 Bamboo flowsheet Jada Cunha PT [facility] Start: 06-24-2024 End: 06-24-2024 Bamboo flowsheet Jada Cunha PT [facility] Start: 06-24-2024 End: 06-24-2024 ambulatory Jada Cunha PT [facility] Comment on above: Primary osteoarthrit is of right knee (Primary Dx) Start: 06-17-2024 End: 06-17-2024 ambulatory CLINT BOOGIE [...] Start: 06-17-2024 End: 06-17-2024 ambulatory Clint Boogie Facility:[facility] Start: 06-17-2024 End: 06-17-2024 Patient encounter procedure Clint Boogie DO Work Phone: [facility] Comment on above: Pre-op testing Start: 05-12-2024 End: 05-12-2024 Telephone encounter Margarita Givens [facility] Comment on above: wt loss, dizzy, bp m ed hold Start: 04-29-2024 End: 04-29-2024 [facility] Start: 04-15-2024 End: 04-15-2024 Patient encounter procedure Clint Brown Chuyita DO Work Phone: [facility] Comment on above: Right knee pain, uns pecified chronicity (Primary Dx); Primary osteoarthritis of right knee Start: 04-15-2024 End: 04-15-2024 ambulatory CLINT Brown CHUYITA Not Available Start: 03-12-2024 End: 03-12-2024 ambulatory MD Cristian Muñoz Work Phone: [facility] Work Phone: Start: 03-12-2024 End: 03-12-2024 Patient encounter procedure MD Cristian Muñoz Work Phone: [facility] Work Phone: Start: 03-08-2024 End: 03-08-2024 ambulatory MD Cristian Muñoz Work Phone: [facility] Work Phone: Start: 03-08-2024 End: 03-08-2024 Patient encounter procedure MD Cristian Muñoz Work Phone: [facility] Work Phone: Start: 02-19-2024 End: 02-19-2024 Patient encounter procedure PHYSICIAN NO [facility] Work Phone: Start: 02-19-2024 End: 02-20-2024 ambulatory PHYSICIAN NO [facility] Work Phone: Comment on above: Med Refill Start: 02-05-2024 End: 02-05-2024 ambulatory PHYSICIAN NO [facility] Work Phone: Start: 02-05-2024 End: 02-05-2024 Patient encounter procedure PHYSICIAN NO [facility] Work Phone: Start: 02-05-2024 End: 02-05-2024 Patient encounter procedure PHYSICIAN NO [facility] Start: 02-05-2024 End: 02-05-2024 ambulatory PHYSICIAN NO [facility] Work Phone: Start: 01-19-2024 End: 01-19-2024 ambulatory PHYSICIAN NO [facility] Work Phone: Start: 01-19-2024 End: 01-19-2024 Patient encounter procedure PHYSICIAN NO [facility] Work Phone: Start: 01-15-2024 End: 01-15-2024 ambulatory PHYSICIAN NO [facility] Work Phone: Start: 01-15-2024 End: 01-15-2024 Patient encounter procedure PHYSICIAN NO [facility] Work Phone: Start: 2024 End: 2024 Patient encounter procedure Darron Bond MD Work Phone: [facility] Start: 2024 End: 2024 Periodic preventive med est patient 40-64yrs Darron Bond MD Work Phone: [facility] Comment on above: Well woman exam with routine gynecological exam (Primary Dx); Screening mammogram, encounter for Start: 2024 End: 2024 ambulatory [facility] Start: 12-30-2023 End: 12-30-2023 Telephone encounter Gemma Elizabeth RN [facility] Comment on above: Results Start: 12-26-2023 Non-patient / Non-visit PHYSICIAN NO [facility] Work Phone: Start: 12-26-2023 End: 12-26-2023 ambulatory [facility] Start: 12-18-2023 End: 12-18-2023 ambulatory PHYSICIAN NO [facility] Work Phone: Start: 12-18-2023 End: 12-18-2023 Patient encounter procedure PHYSICIAN NO [facility] Work Phone: Start: 12-15-2023 End: 12-22-2023 Refill Leidy Kan CLAIMS DIRECTOR-RAT POISONER Work Phone: [facility] Comment on above: Med Refill Start: 12-05-2023 Non-patient / Non-visit MD Mari Muñoz Work Phone: [facility] Work Phone: Start: 12-05-2023 End: 12-05-2023 Admission to same day surgery center MD Cristian Muñoz Work Phone: [facility] [place] Start: 12-05-2023 End: 12-05-2023 ambulatory MD Cristian Muñoz Work Phone: [facility] Work Phone: Start: 12-01-2023 End: 12-01-2023 ambulatory MD Cristian Muñoz Work Phone: [facility] Work Phone: Start: 12-01-2023 End: 12-01-2023 Patient encounter procedure MD Cristian Muñoz Work Phone: [facility] Work Phone: Start: 11-25-2023 End: 11-25-2023 ambulatory MD Cristian Muñoz Work Phone: [facility] Work Phone: Start: 11-25-2023 End: 11-25-2023 Patient encounter procedure MD Cristian Muñoz Work Phone: [facility] Work Phone: Start: 11-25-2023 End: 11-25-2023 ambulatory MD Cristian Muñoz Work Phone: [facility] Work Phone: Start: 11-25-2023 End: 11-25-2023 Patient encounter procedure MD Cristian Muñoz Work Phone: [facility] Start: 11-24-2023 End: 11-24-2023 ambulatory MD Cristian Muñoz Work Phone: [facility] Work Phone: Start: 11-24-2023 End: 11-24-2023 Patient encounter procedure MD Cristian Muñoz Work Phone: [facility] Work Phone: Start: 10-23-2023 Non-patient / Non-visit PHYSICIAN NO FAMILY [facility] Work Phone: Start: 10-18-2023 End: 10-18-2023 ambulatory MD Cristian Muñoz Work Phone: [facility] Work Phone: Start: 10-18-2023 End: 10-18-2023 Departed Referred MD Cristian Muñoz Work Phone: [facility] [place] Work Phone: Start: 10-18-2023 End: 10-18-2023 Patient encounter procedure MD Cristian Muñoz Work Phone: [facility] [place] Work Phone: Start: 09-29-2023 End: 09-29-2023 Patient encounter procedure MD Cristian Muñoz Work Phone: [facility] Work Phone: Start: 09-26-2023 End: 09-26-2023 Office outpatient visit 25 minutes Maxi Badillo MD Work Phone: [facility] Comment on above: Primary hypertension (Primary Dx); Dyslipidemia Start: 09-25-2023 End: 09-25-2023 Telephone encounter Britany Bell CMA [facility] Start: 09-23-2023 End: 09-24-2023 Telephone encounter Delfina SpencerD [facility] Start: 09-15-2023 End: 09-18-2023 Refill Robbie Lyon CLAIMS DIRECTOR-RAT POISONER Work Phone: [facility] Comment on above: Med Refill Start: 09-08-2023 End: 10-07-2023 ambulatory MD Cristian Muñoz Work Phone: [facility] Work Phone: Start: 09-08-2023 End: 10-07-2023 Patient encounter procedure MD Cristian Muñoz Work Phone: [facility] Start: 08-01-2023 Telephone encounter [facility] Start: 07-31-2023 End: 07-31-2023 Patient encounter procedure MD Cristian Muñoz Work Phone: [facility] Work Phone: Start: 07-14-2023 Bamboo flowsheet Fiona Ceja Langdon g MANAGER [employer] Work Phone: [facility] Start: 07-14-2023 Bamboo flowsheet Fiona Ceja Langdon g MANAGER [employer] Work Phone: [facility] Start: 07-14-2023 End: 07-14-2023 Office outpatient new 30 minutes Fiona Winn MANAGER [employer] Work Phone: [facility] Comment on above: Right shoulder pain, unspecified chronicity (Primary Dx); Impingement of right shoulder Start: 06-17-2023 Refill Paulette gallagher CLAIMS DIRECTOR-RAT POISONER Work Phone: [facility] Comment on above: Med Refill Start: 06-05-2023 [facility] Start: 05-21-2023 End: 05-21-2023 ambulatory Mitchel Baeza Other [employer] Other Start: 05-21-2023 Follow-up encounter Mitchel [facility] Start: 05-21-2023 Telephone encounter Mitchel [facility]itia [facility] Start: 03-19-2023 Registered Recurring MD Arlene Muñoz Work Phone: [facility] Work Phone: Start: 03-19-2023 End: 03-19-2023 ambulatory Mitchel Baeza Other [employer] Other Start: 03-19-2023 Follow-up encounter Mitchelshelly espitia [facility] Start: 03-09-2023 End: 03-09-2023 ambulatory MD Cristian Muñoz Work Phone: [facility] Work Phone: Start: 03-09-2023 End: 03-09-2023 Patient encounter procedure MD Cristian Muñoz Work Phone: [facility] Start: 03-03-2023 End: 03-03-2023 ambulatory Mitchel Baeza Other [employer] Other Start: 03-03-2023 Telephone encounter Mitchel espitia [facility] Start: 02-28-2023 ambulatory MARISELA Brown [place] Start: 02-05-2023 End: 02-05-2023 ambulatory Megan Coats Other [employer] Other Start: 02-05-2023 IBT FOR OBESITY GROU P 2-10 30M Megan Fitt [facility] Start: 02-03-2023 End: 02-03-2023 ambulatory Mitchel Baeza Other [employer] Other Start: 02-03-2023 Follow-up encounter Mitchel espitia [facility] Start: 01-31-2023 ambulatory MARISELA Brown [place] Start: 01-14-2023 End: 01-14-2023 ambulatory Mitchel Baeza Other [employer] Other Start: 01-14-2023 [facility] Start: 01-06-2023 End: 01-06-2023 ambulatory Megan Coats Other [employer] Other Start: 01-06-2023 IBT FOR OBESITY GROU P 2-10 30M Megan Coats [facility] Start: 01-06-2023 Telephone encounter Megan Rowe [facility] Start: 01-02-2023 End: 01-02-2023 ambulatory Mitchel Baeza Other [employer] Other Start: 01-02-2023 Nutrition therapy Mitchel Baeza [facility] Start: 12-09-2022 End: 12-10-2022 ambulatory [facility] Start: 10-02-[address] MARISELA GARCIA [facility] ity:H1 Start: 06-25-2022 End: 06-26-[address] [...] 12-15-2021 End: 12-15-2021 ambulatory Bernarda Mcneal Other [employer] Other Start: 12-15-2021 Office outpatient vi sit 15 minutes Bernarda Mcneal [facility] [place] Start: 08-10-2021 End: 08-10-2021 ambulatory Mila Akers Other [employer] Other Start: 08-10-2021 Office outpatient vi sit 15 minutes Mila Akers [facility] [place] Start: 07-19-2019 End: 07-20-2019 Patient encounter procedure SARAH Rosa [facility] Start: 07-19-2019 End: 07-19-2019 Subsequent hospital visit by physician Cristian Muñoz [facility] Comment on above: Screening mammogram, encounter for; Well female exam with routine gynecological exam Procedures Date Procedure Procedure Detail Performing Clinician Start: 12-27-2024 Radiologic examination knee 3 views Clint Boogie DO Work Phone: Start: 11-25-[address] Cristian Muñoz MD Work Phone: Start: 09-27-2024 Follow-up visit Follow-up ZAHIRA TIM Start: 09-23-2024 Radiologic examination knee 3 views Clint Boogie DO Work Phone: Start: 07-15-2024 Radiologic examination knee 3 views Clint Boogie DO Work Phone: Start: 06-30-2024 Total knee replacement Clint Boogie Start: 06-17-2024 UA WITH CULT RFLX Clint [...] MD Cristian Muñoz Work Phone: Start: 09-26-2023 Ecg routine ecg w/least 12 lds w/i&r Deisy Simmons MD Work Phone: Start: 07-14-2023 Arthrocentesis aspir&/inj major jt/bursa w/o us Fiona Winn MANAGER [employer] Work Phone: Start: 12-27-2021 Microscopic observation [Identifier] in Cervix by Cyto stain Pauletteamando Sommer CLAIMS DIRECTOR-RAT POISONER Work Phone: Start: 05-16-2021 Colonoscopy Fiona Winn MANAGER [employer] Work Phone: Start: 05-16-2021 Colonoscopy Clint Boogie Start: 05-16-2021 Esophagogastroduodenoscopy Clint Boogie Start: 07-19-2019 Screen pap by shanika MEDRANO Start: 07-19-2019 Microscopic observation [Identifier] in Cervix by Cyto stain Fiona Winn NP Work Phone: Bone spur of right shoulder Clint Boogie Lipoma (disorder) Clint mcmahon Comment on above: arm Loop electrosurgical excision procedure Clint Boogie Plan of Treatment Date Care Activity Detail Author Start: 12-22-2033 DTaP,Tdap and Td Vaccines (2 - Td or Tdap) DTaP,Tdap and Td Vaccines (2 - Td or Tdap) [facility] Start: 05-16-2031 Screening for malign ant neoplasm of colon [facility] Start: 09-27-2025 Adult BMI Screening Adult BMI Screen ing [facility] Start: 09-27-2025 Tobacco Screening Tobacco Screening [facility] Start: 06-30-2025 End: 06-30-2025 Patient encounter procedure 06/30/2025 9:00 AM EST Office Visit [facility] [address] [place] [address] Clint Boogie DO [address] [place] [address] [facility] Start: 02-07-2025 Influenza vaccination [facility] Start: 01-12-2025 Adult BMI Screening Adult BMI Screen ing [facility] Start: 01-12-2025 Tobacco Screening Tobacco Screening [facility] Start: 12-27-2024 Screening for malign ant neoplasm of cervix Pap Smear [facility] Start: 12-27-2024 End: 12-27-2024 Patient encounter procedure 12/27/2024 9:00 AM EDT Office Visit [facility] [address] [place] [phone] Clint Boogie DO [address] [place] [address] [facility] Start: 09-25-2024 Adult BMI Screening Adult BMI Screen ing [facility] Start: 09-25-2024 Tobacco Screening Tobacco Screening [facility] Start: 08-12-2024 End: 08-12-2024 Patient encounter procedure 08/12/2024 9:45 AM EST Office Visit [facility] [address] [place] [phone] Clint Boogie DO [address] [place] [address] [facility] Start: 07-16-2024 End: 07-16-2024 ambulatory 07/16/2024 12:00 PM EST Treatment [facility] [address] [place] [address] Sunshine Lazo, [employer] [facility] Start: 07-15-2024 End: 07-15-2024 Patient encounter procedure 07/15/2024 2:15 PM EST Office Visit [facility] [address] [place] [address] Clint Boogie DO [address] [place] [address] [facility] Start: 06-24-2024 End: 06-24-2024 ambulatory [facility] Comment on above: Primary osteoarthrit is of right knee Start: 06-17-2024 End: 06-17-2024 Patient encounter procedure 06/17/2024 2:00 PM EST Office Visit [facility] [address] [place] [phone] Clint Boogie DO [address] [place] [address] [facility] Start: 06-17-2024 End: 06-17-2025 Urinalysis complete panel - Urine Urinalysis with reflex microscopic Lab Routine Pre-op testing Expected: 06/17/2024 (Approximate), Expires: 06/17/2025 [facility] Work Phone: Comment on above: Expected: 06/17/2024 (Approximate), Expires: 06/17/2025 Start: 03-31-2024 End: 12-29-2024 Lipid panel Lipid panel Lab Routine Other hyperlipidemia High triglycerides Medication monitoring encounter Expected: 03/31/2024 (Approximate), Expires: 12/29/2024 [facility] Work Phone: Comment on above: Expected: 03/31/2024 (Approximate), Expires: 12/29/2024 Start: 03-24-2024 End: 09-22-2024 Lipid panel Lipid panel Lab Routine Other hyperlipidemia Expected: 03/24/2024 (Approximate), Expires: 09/22/2024 [facility] Work Phone: Comment on above: Expected: 03/24/2024 (Approximate), Expires: 09/22/2024 Start: 02-08-2024 COVID-19 Vaccine ( season) COVID-19 Vaccine () [facility] Start: 02-08-2024 COVID-19 Vaccine ( season) COVID-19 Vaccine ( season) [facility] Start: 02-08-2024 Influenza vaccination Influenza Vacc ine [facility] Start: 02-05-2024 X-ray of right knee XR knee RT 3V - NOT FOR ER USE [facility] Start: 02-05-2024 XR Knee - right 3 Views [facility] Start: 01-14-2024 End: 01-12-2025 DBT Breast - bilateral screening Mammography screening bilateral with CAD Imaging Routine Screening mammogram, encounter for Expected: 01/14/2024 (Approximate), Expires: 01/12/2025 [facility] Work Phone: Comment on above: Expected: 01/14/2024 (Approximate), Expires: 01/12/2025 Start: 2024 End: 2024 Patient encounter procedure [facility] Start: 01-11-2024 Adult BMI Screening Adult BMI Screen ing [facility] Start: 01-11-2024 Tobacco Screening Tobacco Screening [facility] Start: 12-05-2023 [facility] Start: 12-05-2023 [facility] Start: 11-25-2023 X-ray of left knee XR knee LT 2V [facility] Start: 11-25-2023 X-ray of right knee XR knee RT 4V* F [facility] Start: 11-25-2023 XR Knee - left 2 Views [facility] Start: 11-25-2023 XR Knee - right 4 Views [facility] Start: 10-18-2023 Bacteria identified in Urine by Culture [facility] Start: 09-26-2023 End: 09-26-2023 Patient encounter procedure 09/26/2023 8:15 AM EDT Office Visit [facility] [address] [place] [address] Maxi Badillo MD [address] [place], [place] [id number] Deisy Simmons MD [address] [place] [address] [facility] Start: 08-04-2023 End: 08-04-2023 Patient encounter procedure 08/04/2023 8:15 AM EST Office Visit [facility] [address] [place] [phone] Maxi Badillo MD [address] [place] [address] [facility] Start: 07-28-2023 End: 07-28-2023 Patient encounter procedure 07/28/2023 8:00 AM EST Office Visit [facility] [address] [place] [address] Fiona Winn, MANAGER [employer] [address] [place] [address] [facility] Start: 07-14-2023 End: 07-14-2023 Patient encounter procedure 07/14/2023 8:30 AM EST Office Visit [facility] [address] [place] [address] Fiona Winn, MANAGER [employer] [address] [place] [address] Right shoulder pain, unspecified chronicity (Primary Dx) [facility] Comment on above: Right shoulder pain, unspecified chronicity (Primary Dx) Start: 02-07-2023 COVID-19 Vaccine ( season) COVID-19 Vaccine ( season) [facility] Start: 02-07-2023 Influenza vaccination N [facility] Start: 07-19-2022 Screening for malign ant neoplasm of cervix [facility] Start: 2021 Shingles Vaccine (1 of 2) Shingles Vaccine (1 of 2) [email or web address] Work Phone: Start: 02-07-2019 Influenza vaccination Flu vaccine (# 1) [employer] Phone: Start: 2011 Diabetes screen Diabetes screen [employer] Phone: Start: 2011 Lipid screen [facility] screen [facility] [employer] Phone: Start: 2011 Screening for malign ant neoplasm of breast Mammogram [facility] Start: 2001 Screening for malign ant neoplasm of cervix [facility] Start: 01-14-1992 Cervical cancer screen Cervical canc er screen [employer] Phone: Start: 01-14-1992 Screening for malign ant neoplasm of cervix Pap Smear [facility] Start: 1990 DTaP,Tdap and Td Vaccines (1 - Tdap) DTaP,Tdap and Td Vaccines (1 - Tdap) [facility] Start: 1989 Adult BMI Follow Up Plan Adult [facility] Plan [facility] Start: 1986 HIV screen HIV screen [facility] [employer] Phone: Start: 1983 Depression Screening [facility] Start: 1982 DTaP/Tdap/Td vaccine (1 - Tdap) DTaP/Tdap/Td vaccine (1 - Tdap) [employer] Phone: Start: 1971 Screening for malign ant neoplasm of colon [facility] End: 07-19-2019 Cytopathology procedure, preparation of smear, genital source PAP SMEAR Lab Routine Screening mammogram, encounter for Well female exam with routine gynecological exam 1 Occurrences starting 07/19/2019 until 07/19/2019 [employer] Phone: Comment on above: 1 Occurrences starti ng 07/19/2019 until 07/19/2019 End: 12-26-2023 Lipid 1996 panel - Serum or Plasma Lipid profile Lab Routine Dyslipidemia 1 Occurrences starting 09/26/2023 until 12/26/2023 [employer] Phone: Comment on above: 1 Occurrences starti ng 09/26/2023 until 12/26/2023 [facility] Education [facility] Work Phone: Immunizations Immunization Date Immunization Notes Care Provider Jeffry gregg 02-12-2024 influenza virus vaccine, unspecified formulation Zahira Tim PA-C Work Phone: [facility] 06-19-2022 influenza virus vaccine, unspecified formulation Paulette Sommer CLAIMS DIRECTORADAM Work Phone: [facility] 11-28-2020 COVID-19 mRNA Comirnattiffany (Pfizer) MD Cristian Muñoz Work Phone: [facility] 11-07-2020 COVID-19 mRNA Comirnattiffany (Pfizer) MD Cristian Muñoz Work Phone: [facility] Payers Date Payer Category Payer [employer] ( and others) [id number] 06-13-2022 [employer] ( and others) [id number] 06-09-2019 [employer] ( and others) [facility] xxxxxxxxx 2019-Present xxxxxxxxx [id number] 06-09-2017 [employer] ( and others) [id number] .[id number] 06-09-2017 () 1.2.840.11 [id number] .[id number] 06-09-2017 [employer] ( and others) [id number] 1971 Unknown [id number] 2.16.840.1.995771.3.579.2 .173 1971 Unknown [id number] 2.16.840.1.469896.3.579.2 .593 1971 Unknown [id number] 2.16.840.1.596758.3.579.2 .593 1971 Unknown [id number] 2.16.840.1.416940.3.579.2 .593 1971 Unknown [id number] 2.16.840.1.605995.3.579.2 .593 1971 Unknown [id number] 2.16.840.1.542325.3.579.2 .593 1971 Unknown [id number] 2.16.840.1.559833.3.579.2 .593 1971 Unknown [id number] 2.16.840.1.577642.3.579.2 .593 1971 Unknown [id number] 2.16840.1.352238.3.579.2 .593 1971 Unknown [id number] 2.840.1.139727.3.579.2 .1286 1971 Unknown [id number] 2.840.1.169318.3.579.2 .727 1971 Unknown [id number] 2.16.840.1.180017.3.579.2 .727 1971 Unknown [id number] 2.840.1.788696.3.579.2 .727 1971 Unknown [id number] 2.840.1.176232.3.579.2 .1286 1971 Unknown [id number] 2.16840.1.628741.3.579.2 .1286 1971 Unknown [id number] 2.16.840.1.624191.3.579.2 .1286 1971 Unknown [id number] 2.16.840.1.711835.3.579.2 .1259 1971 Unknown [id number] 2.16.840.1.352019.3.579.2 .1259 1971 Unknown [id number] 2.16.840.1.929396.3.579.2 .1259 1971 Unknown [id number] 2.16.840.1.180621.3.579.2 .1258 1971 Unknown [id number] 2.16.840.1.898787.3.579.2 .1258 1971 Unknown [id number] 2.16.840.1.166476.3.579.2 .1258 1971 Unknown [id number] 2.16.840.1.651465.3.579.2 .1258 1971 Unknown [id number] 2.16.840.1.476451.3.579.2 .1258 1971 Unknown [id number] 2.16.840.1.036095.3.579.2 .1258 1971 Unknown [id number] 2.16840.1.309697.3.579.2 .1258 1971 Unknown [id number] 2.16840.1.348516.3.579.2 .1258 1971 Unknown [id number] 2.16840.1.137588.3.579.2 .1258 1971 Unknown [id number] 2.16.840.1.368833.3.579.2 .1258 1971 Unknown [id number] 2.16840.1.108168.3.579.2 .1258 1971 Unknown [id number] 2.16.840.1.320602.3.579.2 .1258 1971 Unknown [id number] 2.16.840.1.314965.3.579.2 .1258 1971 Unknown [id number] 2.16.840.1.428344.3.579.2 .1258 1971 Unknown [id number] 2.16840.1.231649.3.579.2 .1259 06-09-1958 Department of [facility] ( and others) [id number] [employer] ( and others) [facility] [id number] Self-pay Self Pay [id number] Social History Date Type Detail Facility Start: 07-19-2019 End: 12-05-2023 Tobacco smoking status NHIS Never smoker [facility] Start: 07-19-2019 End: 09-27-2024 Alcohol intake Current drinker of alcohol (finding) [employer] Phone: Start: 07-19-2019 Alcohol Comment social [employer] Phone: Sex Assigned At Not on file [employer] Phone: Start: 07-20-2020 End: 07-13-2023 Sex Assigned At [facility] Start: 1970 Sex Assigned At Female [facility] Start: 07-20-2020 End: 07-13-2023 History of Social function [facility] Start: 07-13-2023 Alcohol Comment 1-2 drinks monthly or less, coffee 2-3 cups per day [facility] Start: 07-15-2021 Gender identity Identifies as female gender (finding) [facility] Start: 06-06-2022 End: 07-14-2023 Tobacco use and exposure Smokeless tobacco non-user [facility] Childcare Unknown [facility] Start: 02-18-2019 Alcohol Comment rare [facility] Start: 07-15-2021 Sexual orientation Heterosexual (finding) [facility] Start: 02-09-2019 End: 08-03-2024 Sex Female (finding) [facility] Medical Equipment Procedure Code Equipment Code Equipment Origin al Text Equipment Identifier Dates KNEE TOTAL ROBOT ARTHROPLASTY Clint Boogie DO 06/30/24 Unknown Knee R FDA Start: 06-30-2024 KNEE TOTAL ROBOT ARTHROPLASTY Clint Boogie DO 06/30/24 Unknown Knee R FDA Start: 06-30-2024 KNEE TOTAL ROBOT ARTHROPLASTY Clint Boogie DO 06/30/24 Unknown Knee R FDA Start: 06-30-2024 KNEE TOTAL ROBOT ARTHROPLASTY Chuyita MCKEON Clint Stephanie 06/30/24 Unknown Knee R FDA Start: 06-30-2024 Goals Date Patient Goal Desired Activity /State Functional Status Date Assessment Result Facility 06-17-2024 Functional Status No [facility] Clinical Notes 08-10-2021 to 01-06-2025 Telephone Encounter - Elizabeth Pan CMA - 01/06/2025 3:09 AM EDTTelephone Encounter - Elizabeth Pan CMA - 01/06/2025 3:09 AM EDTJasiri Boogie DO - 12/27/2024 9:00 AM EDT Note Date & Type Note Facility 01-06-2025 Miscellaneous Notes Formattin g of this note might be different from the original. Edgar: 09/27/2024 Lipid: 04/29/2024-ABN documented in this encounter [facility] 01-06-2025 Telephone encount er Note Edgar: 09/27/2024 Lipid: 04/29/2024-ABN [facility] 12-27-2024 History of Presen t illness Narrative Images from the original note were not included. @[facility] Carly Cesar is a 54 y.o. female who presents for Pain of the Right Knee HPI: History of Present Illness The patient is a 54-year-old female who is 6 months status post right total knee arthroplasty, with the surgery performed on 06/30/2024. She reports that her sensitivity has been improving, although she still experiences some numbness. She also mentions an aching sensation in the back of her knee, which occasionally disrupts her sleep. Additionally, she experiences pain on the lateral side of her thigh. She has been applying ice intermittently to manage the discomfort. She has not attempted kneeling on the floor or a pad and expresses fear about doing so. SUBJECTIVE: MEDICATIONS: Current Outpatient Medications Medication Instructions buPROPion XL (Wellbutrin XL) 150 MG 24 hr tablet CeleBREX 200 mg cetirizine (ZyrTEC) 10 MG tablet cholecalciferol (VITAMIN D-[address]) 2,000 Units, Daily RT Coenzyme Q10 (CO Q 10 PO) Take by mouth fenofibrate micronized (Lofibra) 67 MG capsule Ferrous Sulfate (IRON PO) 1 tablet, Daily RT FIBER PO Take by mouth gabapentin (NEURONTIN) 300 mg, Oral, Nightly Multiple Vitamin (multivitamin) tablet 1 tablet, Daily pramipexole (Mirapex) 1 MG tablet pregabalin (LYRICA) 75 mg, Oral, Nightly pregabalin (LYRICA) 75 mg, Oral, Daily Protonix 40 MG EC tablet Every 24 hours rosuvastatin (Crestor) 20 MG tablet VITAMIN D PO Take by mouth Zepbound 10 MG/0.5ML solution auto-injector ALLERGIES: No Known Allergies SURGICAL HISTORY: Past Surgical History: Procedure Laterality Date CERVICAL BIOPSY W/ LOOP ELECTRODE EXCISION 2005 CLAVICLE SURGERY Right 02/24/[address] Lozada KNEE ARTHROPLASTY MASS EXCISION 10/2014 r/o left neck mass MENISCECTOMY OTHER SURGICAL HISTORY Procedure:excised;Disease:hx fibrolipomas TOTAL KNEE ARTHROPLASTY Right 06/30/2024 DANTE FAMILY HISTORY: Family History Problem Relation Name Age of Onset Heart disease Mother Laura Aviles Other (bleeding ulcer) Mother Laura Aviles Diabetes Mother Laura Aviles Hypertension Mother Laura Aviles Stroke Mother Laura Aviles Heart attack Father Mateusz Jordan Heart disease Father Mateusz Jordan Alcohol abuse Father Mateusz Jordan Muscular dystrophy Brother Bony Jordan Drug abuse Brother Bony Jordan Suicidality Brother Cancer Maternal Grandmother Estefany Kebede Stroke Paternal Grandmother Drug abuse Daughter Tierra Keen Cancer Mother's Sister Hyde Heart disease Sister Channing Jordan Stroke Sister Channing Jordan SOCIAL HISTORY: Social History Tobacco Use Smoking status: Never Smokeless tobacco: Never Vaping Use Vaping status: Never Used Substance Use Topics Alcohol use: Yes Comment: 1-2 drinks monthly or less, coffee 2-3 cups per day Drug use: Never Depression: Not at risk (06/05/2023) Received from [facility] PHQ-2 Patient Health Questionnaire-2 Score: 0 REVIEW OF SYMPTOMS: Review of Systems The review of systems, history and current medications list are all reviewed today. OBJECTIVE: Visit Vitals Ht 5' 2 Wt 156 lb 12.8 oz BMI 28.68 kg/m Smoking Status Never BSA 1.76 m Physical Exam Alert and oriented, no acute distress. Mood and affect are appropriate. Ambulating independently. Gait is nonantalgic. Right knee: Flexion at 130 degrees, full extension. Incision is benign and well-healed. No erythema. No effusion. 5 out of 5 strength. Patella is tracking appropriately. No varus or valgus instability. Tight IT band on the right compared to the left. Left knee: Flexion at 134 degrees Ortho Exam Results Three views, bilateral PA weight-bearing/sunrise/lateral right knee, taken today and saved to the permanent medical record are reviewed. Prosthesis is unchanged in position and alignment. No signs of prosthetic wear or loosening. No periprosthetic fractures. ASSESSMENT AND PLAN: I reviewed the history, physical exam, diagnostic studies, and diagnosis with the patient. Assessment & Plan 1. Post-operative status following right total knee arthroplasty: The IT band is notably tight, contributing to symptoms. Advised to use a massage roller stick to alleviate tension in the IT band, hamstrings, and calves. Encouraged to perform stretches while sitting, holding each stretch for 20 to 30 seconds before relaxing, and repeating this process several times daily. Carly inquired about some discomfort felt during certain positions during intercourse. I feel that if she can improve her flexibility of the tissues around her knee then this should improve. I reminded the patient of the need for lifelong prophylactic antibiotics prior to any dental procedures. Follow-up: 06/2025, 1-year anniversary of surgery, with xrays of the right knee. A total of 20 to 29 minutes was spent on this patient encounter which included chart review, check in, nurse triage, history taking, physical examination, diagnostic study review, patient counseling and discussion, entering information into the patient's medical record, and coordinating patient care Diagnoses and all orders for this visit: S/P total knee arthroplasty, right - XR knee 3 views right Clint Boogie D.O. Attestation This note was created using voice recognition through [employer] documented in this encounter [facility] 10-26-2024 Evaluation note Authored October 26, 2024 1:19p m Start weight: 211.7lbs. She is down 57.2 lbs. today with a weight of 154.5 lbs. She is down 7.5 lbs. since last visit on 07/03/2024. Starting Date: 01-02-2023. On Zepbound 1. Abnormal weight gain 2. Obesity-marked improvement with a greater than 25% weight loss with taking Zepbound 10 mg with minimal controlled/constipation side effects. We are going to continue this dose. She is recovering well from right total knee replacement in June. She is walking and biking. Over time, hopefully she can increase exercise both cardio and strength training. She should work regularly with our marketing finance specialist and have her bioimpedance monitored and continue to work on good sleep hygiene. She should continue to treat with long-term lifestyle changes of improved nutrition, increased exercise and activity, stress reduction, adequate sleep and behavioral modification versus short-term dieting. 3. Mixed hyperlipidemia-improved with fenofibrate, rosuvastatin 20 mg, with healthier eating and increased exercise. She will continue treat with decreasing the simple sweets, added sugars, refined starches, and bad/added fats, increasing activity and exercise and continued long-term weight loss. 4. Ueyomythbuyt-tifk-sthyznzxfh. She may be able to cut back her dose of the losartan 50/12.5 mg HCTZ. She will continue treat with a low-salt diet, decreased processed and [...] weight loss. Follow up with me in 12 weeks. New labs needed: Up-to-date. She should continue regular lab work with her PCP. Were going to check a coronary calcium screen, fasting cholesterol profile with her weight loss, Apoprotein B level, LP(a) level and a CRP high-sensitivity cardiac because of her strong family history of premature CAD. [facility] Work Phone: [phone]) 763-761205-20-2025 Evaluation note* Author Sandra Jules [facility] Authored October 26, 2024 1:19p m Start weight: 211.7lbs. She is down 57.2 lbs. today with a weight of 154.5 lbs. She is down 7.5 lbs. since last visit on 07/03/2024. Starting Date: 01-02-2023. On Zepbound 1. Abnormal weight gain 2. Obesity-marked improvement with a greater than 25% weight loss with taking Zepbound 10 mg with minimal controlled/constipation side effects. We are going to continue this dose. She is recovering well from right total knee replacement in June. She is walking and biking. Over time, hopefully she can increase exercise both cardio and strength training. She should work regularly with our marketing finance specialist and have her bioimpedance monitored and continue to work on good sleep hygiene. She should continue to treat with long-term lifestyle changes of improved nutrition, increased exercise and activity, stress reduction, adequate sleep and behavioral modification versus short-term dieting. 3. Mixed hyperlipidemia-improved with fenofibrate, rosuvastatin 20 mg, with healthier eating and increased exercise. She will continue treat with decreasing the simple sweets, added sugars, refined starches, and bad/added fats, increasing activity and exercise and continued long-term weight loss. 4. Qztmmyeussum-oang-vdrkcjvfbp. She may be able to cut back her dose of the losartan 50/12.5 mg HCTZ. She will continue treat with a low-salt diet, decreased processed and [...] weight loss. Follow up with me in 12 weeks. New labs needed: Up-to-date. She should continue regular lab work with her PCP. Were going to check a coronary calcium screen, fasting cholesterol profile with her weight loss, Apoprotein B level, LP(a) level and a CRP high-sensitivity cardiac because of her strong family history of premature CAD. Author Charisma Eid [facility] Authored January 18, 2025 8: 45am Start weight: 211.7lbs. She is down 55.2 lbs. today with a weight of 156.5 lbs. She is up 2.0lbs. since last visit on 10/26/2024. Starting Date: 01-02-2023. On Zepbound 1. Abnormal weight gain 2. Obesity-marked improvement with a greater than 25% weight loss with taking Zepbound 10 mg with minimal controlled/constipation side effects. We are going to continue this dose. She is recovering well from right total knee replacement in June. She is walking and biking. Over time, hopefully she can increase exercise both cardio and strength training. She should work regularly with our marketing finance specialist and have her bioimpedance monitored and continue to work on good sleep hygiene. She should continue to treat with long-term lifestyle changes of improved nutrition, increased exercise and activity, stress reduction, adequate sleep and behavioral modification versus short-term dieting. 3. Mixed hyperlipidemia-improved with fenofibrate, rosuvastatin 20 mg, with healthier eating and increased exercise. She will continue treat with decreasing the simple sweets, added sugars, refined starches, and bad/added fats, increasing activity and exercise and continued long-term weight loss. 4. Qpsuiugqnjko-xmkw-tsgxejooor. She may be able to cut back her dose of the losartan 50/12.5 mg HCTZ. She will continue treat with a low-salt diet, decreased processed and [...] weight loss. Follow up with me in 12 weeks. New labs needed: Up-to-date. She should continue regular lab work with her PCP. Were going to check a coronary calcium screen, fasting cholesterol profile with her weight loss, Apoprotein B level, LP(a) level and a CRP high-sensitivity cardiac because of her strong family history of premature CAD. [facility] Work Phone: 1(286) 853-992504-21-2025 History of Present illness Narrative* Zahira Tim PA-C - 09/27/2024 8:00 AM EDT Carly Cesar Date of visit: 09/27/2024 Date of : 1970 Age: 54 y.o. Patient Active Problem List Diagnosis Hot flashes due to menopause Sleep apnea Menopause Obesity (BMI 30-39.9) Family history of heart disease Essential hypertension Primary hypertension Dyslipidemia No Known Allergies Current Outpatient Medications Medication Sig Dispense Refill buPROPion XL (WELLBUTRIN XL) 150 mg 24 hr tablet Take 1 tablet (150 mg total) by mouth in the morning. celecoxib (CeleBREX) 100 mg capsule Take 1 capsule (100 mg total) by mouth in the morning and 1 capsule (100 mg total) before bedtime. cetirizine (ZyrTEC) 10 mg tablet Take 1 tablet (10 mg total) by mouth in the morning. cholecalciferol (VITAMIN D3) 1,000 units tablet Take 2 tablets (2,000 Units total) by mouth in the morning. coenzyme Q10 100 mg capsule Take 1 capsule (100 mg total) by mouth in the morning. 30 capsule 11 fenofibrate micronized (LOFIBRA) 67 mg capsule Take 1 capsule (67 mg total) by mouth every morning before breakfast. 30 capsule 7 FeroSuL 325 mg (65 mg iron) tablet Take 1 tablet (325 mg total) by mouth in the morning. ubqpuivo-ybbc-OH-calcium &mins (THERAGRAN-M) 9 mg iron-400 mcg tablet Take 1 tablet by mouth inthe morning. pantoprazole (PROTONIX) 40 mg EC tablet Take 1 tablet (40 mg total) by mouth in the morning. pramipexole (MIRAPEX) 1 mg tablet Take 2 tablets (2 mg total) by mouth in the morning. pregabalin (LYRICA) 75 mg capsule Take 1 capsule (75 mg total) by mouth nightly. rosuvastatin (CRESTOR) 20 mg tablet TAKE 1 TABLET IN THE EVENING 90 tablet 3 tirzepatide, weight loss, (ZEPBOUND) 10 mg/0.5 mL solution Inject 10 mg under the skin every 7 days. UNABLE TO FIND Eye promise 1 tablet daily No current facility-administered medications for this visit. Chief Complaint Patient presents with Follow-up 1 year Hypertension Shortness of Breath History of Present Illness Carly Cesar is a pleasant 54-year-old lady with PMH significant for family history heart disease (sister with [place] at 52 y/o), essential hypertension, hypertriglyceridemia, fibromyalgia. Last seen in office by Dr. Rodrigez in 09/2023. Since her last visit, patient reports feeling well overall from a cardiovascular standpoint. Deniesepisodes of chest pain or discomfort, shortness of breath or dyspnea on exertion, palpitations, dizziness or lightheadedness, near-syncope or episodes of syncope, lower extremity swelling. Lipid panel 04/29/2024: Total cholesterol 140, triglycerides 152, HDL 46, LDL 64. Did have a right knee replacement in June of 2024, so slowly becoming more active. Vitals stable in office. Past Medical History: Diagnosis Date Arthritis Bursitis Chest pain ZUÑIGA (dyspnea on exertion) Fibrolipoma Gain of weight Helicobacter pylori infection Hyperlipidemia Hypertension RLS (restless legs syndrome) Rotator cuff syndrome Tendonitis Tired Visual impairment glasses, contacts No data recorded No data recorded No data recorded Past Surgical History: Procedure Laterality Date ARTHROSCOPY SHOULDER Right 02/24/2019 Performed by Jr Lozada DO at [facility] CERVICAL BIOPSY W/ LOOP ELECTRODE EXCISION CYSTECTOMY EXTERNAL EAR SURGERY KNEE SURGERY Right RESECTION DISTAL CLAVICLE Right 02/24/2019 Performed by Jr Lozada DO at [facility] Family History Problem Relation Age of Onset Heart disease Mother Ulcers Mother Diabetes Mother Hypertension Mother Stroke Mother Heart attack Father Heart disease Father No Known Problems Sister Muscular dystrophy Brother No Known Problems Daughter No Known Problems Son Cancer Maternal Grandmother lung Stroke Paternal Grandmother No Known Problems Sister Suicide Attempts Brother Social History Socioeconomic History Marital status: Spouse name: Not on file Number of children: Not on file Years of education: Not on file Highest education level: Not on file Occupational History Not on file Tobacco Use Smoking status: Never Smokeless tobacco: Never Vaping Use Vaping status: Never Used Substance and Sexual Activity Alcohol use: Yes Comment: rare Drug use: Never Sexual activity: Yes Partners: Male Other Topics Concern Caffeine Use Yes Social History Narrative Not on file Social Drivers of Health Financial Resource Strain: Not on file Food Insecurity: No Food Insecurity (09/27/2024) Hunger Screening Food Insecurity - Worry: Never True Food Insecurity - Inability: Never True Transportation Needs: Not on file Physical Activity: Not on file Stress: Not on file Social Connections: Not on file Interpersonal Safety: Not At Risk (06/05/2023) Received from [facility] Humiliation, Afraid, Rape, and Kick questionnaire Fear of Current or Ex-Partner: No Emotionally Abused: No Physically Abused: No Sexually Abused: No Housing Instability: Not on file Review of Systems Review of Systems Constitutional: Negative. HENT: Negative. Eyes: Negative. Respiratory: Negative. Hematologic/Lymphatic: Bruises/bleeds easily. Skin: Negative. Musculoskeletal: Negative. Gastrointestinal: Negative. Neurological: Negative. Psychiatric/Behavioral: Negative. Allergic/Immunologic: Positive for environmental allergies. CARDIOVASCULAR: Please review HPI. Physical Examination General appearance: Alert, oriented and cooperative. In no acute distress. Skin: Warm and dry to touch. Neck: No JVD, No carotid bruit. Neck supple, trachea midline. Respiratory: Clear to auscultation bilaterally, no use of accessory muscles. Cardiovascular: RRR with normal S1 and S2 with no murmurs Musculoskeletal: No peripheral edema. VITAL SIGNS: BP 116/80 (BP Site: Left Arm, BP Postition: Sitting) Pulse 94 Ht 157.5 cm (5' 2 ) Wt 70.3 kg (155 lb) SpO2 99% BMI 28.35 kg/m Orders Placed or Reconciled This Encounter Medications pregabalin (LYRICA) 75 mg capsule Sig: Take 1 capsule (75 mg total) by mouth nightly. celecoxib (CeleBREX) 100 mg capsule Sig: Take 1 capsule (100 mg total) by mouth in the morning and 1 capsule (100 mg total) before bedtime. UNABLE TO FIND Sig: Eye promise 1 tablet daily tirzepatide, weight loss, (ZEPBOUND) 10 mg/0.5 mL solution Sig: Inject 10 mg under the skin every 7 days. Medications Discontinued During This Encounter Medication Reason meloxicam (MOBIC) 7.5 mg tablet Therapy completed magnesium oxide (MAGOX) 400 mg tablet Therapy completed losartan-hydroCHLOROthiazide (HYZAAR) 50-12.5 mg per tablet Discontinued by another clinician fluticasone propionate (FLONASE) 50 mcg/actuation nasal spray Therapy completed diclofenac (VOLTAREN) 75 mg EC tablet Therapy completed tirzepatide, weight loss, (ZEPBOUND) 2.5 mg/0.5 mL pen injector Therapy completed IMPRESSIONS/PLAN Essential hypertension BP in office 116/80. Continue current management. Hypertriglyceridemia Lipid panel 04/29/2024: Total cholesterol 140, triglycerides 152, HDL 46, LDL 64. Continue statin therapy. Continue fenofibrate. Overweight BMI 28.35. Patient is actively working on losing weight and is currently on Mounjaro injections. Did have a right knee replacement in June of 2024, so slowly becoming more active. Patient is stable and doing well from a cardiovascular standpoint. Can continue to follow up annually or sooner if issues arise. Patient seen with Dr. Helms readily available in office. ZAHIRA TIM PA-C TODAYS ORDERS No orders of the defined types were placed in this encounter. FOLLOW UP Return in about 1 year (around 09/27/2025). PCP: CRISTIAN MUÑOZ MD Referring Physician: Cristian Muñoz MD [address] [place] [address] Zahira Tim PA-C 09/27/24 0820 [facility] History of Present illness Narrative* Clint Boogie, DO - 09/23/2024 9:15 AM EDT Images from the original note were not included. @TUYET@ Carly Cesar is a 54 y.o. female who presents for Post-op Visit of the Right Knee (R TKA 06/30/24) HPI: History of Present Illness The patient is currently 12 weeks post-right total knee arthroplasty, performed on 06/30/2024. Persistent nerve pain is reported. Lidocaine patches have been utilized to manage the discomfort, which have been beneficial in improving sleep quality. However, the efficacy of these patches appears todiminish over time. Gabapentin was previously taken twice daily, but the medication has since run ou t. An incident involving pain after using a leg press machine resulted in soreness during ambulation. Physical therapy sessions have been completed. SUBJECTIVE: MEDICATIONS: Current Outpatient Medications Medication Instructions aspirin 81 mg buPROPion XL (Wellbutrin XL) 150 MG 24 hr tablet CeleBREX 200 mg celecoxib (CELEBREX) 100 mg, Oral, 2 times daily, Take as needed for pain cetirizine (ZyrTEC) 10 MG tablet cholecalciferol (VITAMIN D-[address]) 2,000 Units, Daily RT Coenzyme Q10 (CO Q 10 PO) Take by mouth fenofibrate micronized (Lofibra) 67 MG capsule Ferrous Sulfate (IRON PO) 1 tablet, Daily RT FIBER PO Take by mouth gabapentin (NEURONTIN) 300 mg, Oral, Nightly Multiple Vitamin (multivitamin) tablet 1 tablet, Daily pramipexole (Mirapex) 1 MG tablet pregabalin (LYRICA) 75 mg, Oral, Nightly Protonix 40 MG EC tablet Every 24 hours rosuvastatin (Crestor) 20 MG tablet VITAMIN D PO Take by mouth Zepbound 10 MG/0.5ML solution auto-injector ALLERGIES: No Known Allergies SURGICAL HISTORY: Past Surgical History: Procedure Laterality Date CERVICAL BIOPSY W/ LOOP ELECTRODE EXCISION 2005 CLAVICLE SURGERY Right 02/24/[address] Lozada KNEE ARTHROPLASTY -2023 MASS EXCISION 10/2014 r/o left neck mass MENISCECTOMY OTHER SURGICAL HISTORY Procedure:excised;Disease:hx fibrolipomas TOTAL KNEE ARTHROPLASTY Right 06/30/2024 DANTE REVIEW OF SYMPTOMS: The review of systems, history and current medications list are all reviewed today. OBJECTIVE: Visit Vitals Ht 5' 2 Wt 175 lb BMI 32.01 kg/m Smoking Status Never BSA 1.86 m Physical Exam Ambulating independently. Gait is nonantalgic. Right Knee: - incision well healed. No erythema. Minimal swelling. ROM 0-118. No varus or valgus instability. Patella tracking appropriately. Negative homans. NV status unchanged Results Imaging Three views, bilateral PA weight-bearing/sunrise/lateral right knee, taken today and saved to the permanent medical record are reviewed. Prosthesis is unchanged in position and alignment. No signs ofprosthetic wear or loosening. No periprosthetic fractures. ASSESSMENT AND PLAN: I reviewed the history, physical exam, diagnostic studies, and diagnosis with the patient. Assessment & Plan 1. Post-operative status following right total knee arthroplasty: Perform IT band stretches daily, holding each stretch for 20 to 30 seconds. Regular massage of the scar with lotion and exposure to various materials such as towels and washcloths are recommended to aid in desensitization. Aquatic therapy is suggested if there is access to a pool. A prescription for Lyrica 75 mg once daily at bedtime will be sent to [facility] in [place]. If tolerated well and found beneficial, the dosage can be increased to twice daily. Follow-up Follow up in December 2024. Going on a [place] cruise in November. Diagnoses and all orders for this visit: S/P total knee arthroplasty, right - XR knee 3 views right - pregabalin (Lyrica) 75 MG capsule; Take 1 capsule (75 mg) by mouth at bedtime Clint Boogie D.O. Attestation This note was created using voice recognition through [employer] documented in this encounter[id number] History of Present illness Narrative* Simi Aragon, PT - 07/16/2024 9:00 AM EST Physical Therapy Physical Therapy Daily Visit Patient Name: Carly Cesar Today's Date: 07/16/2024 Subjective Current Problem: s/p right TKA with pain and difficulty walking. Pt is being seen today for follow up visit for s/p right TKA. Pt voiced she is doing well today. Date of Surgery: 06/30/2024 with same day discharge Current deficits: Difficulty with all mobility secondary to recent right TKA and pain. Visit Number 8. Time In: 9:00 am; Time out: 9:40 am Total time: 40 minutes [id number] TherEx x 30 minutes [id number] gait training x 10 minutes Precautions: WBAT Right LE; Right TKA protocol Pain Management: The patient is complaining of pain located in the Righ knee and thigh region. Painrating 4/10. The pain is improved by ice and medication 1 every 6 hours of Mounika and Tylenol. The pain is aggravated by activity. The pain is described as aching, throbbing and stiffness. Prior level of function: Ambulation: antalgic gait pattern on Right LE. Assistive devices: FWW, cane ADL and IADL: Independent. Home Environment: Pt lives with her and family in a two story home with 2-3 steps to enter.Bedroom on first floor. home to assist. Objective General Visit Information: Passive ROM: Left knee 5 to 90-92 degrees. Joint play: hypomobile. Manual muscle testing: Left knee flexion/extension: 3+/5. Palpation: Minimal warmth upon palpation,consistent with post-operative conditions. Surgical incision intact with Mepilex dressing with no signs of drainage. Special tests: Negative Melyssa Sign. Functional Mobility: Bed Mobility: mod indep Sit to Stand: mod indep Stair Negotiation: SBA Ambulation: Patient is ambulating with mild antalgic type pattern with FWW, reciprocal gait pattern; good heel to toe gait pattern; mod indep. Pt ambulated approx 250' x 2 with slow javier. Good knee flexion during swing phase. Tinetti Gait and Balance Assessment: Sitting balance: Steady, safe = 1. Rises from chair: needs assistance= 1. Attempts to rise: needs assistance= 1. Immediate standing balance (first 5 seconds): Steady but uses walker or other support = 1. Standing balance: Steady but uses walker or other support = 1. Nudged: Staggers, grabs, catches self = 1. Eyes closed: Steady = 1. Turning 360 degrees: Discontinuous steps = 0 , Unsteady (grabs, staggers) = 0. Sitting down: Uses arms or not a smooth motion = 1. Balance Score: 8/16. Indication of gait: No hesitancy = 1. Step of length and height: Step to = 0. Foot clearance: L foot clears floor = 1 , R foot clears floor = 1. Step symmetry: Right and left step length no equal = 0. Step continuity: Stopping or discontinuity between steps = 0. Path: Mild/moderate deviation or uses w/ aid = 1. Trunk: No sway but flex knees or back or uses arms for stability = 1. Walking time: Heels apart = 0. Gait score: 10/18. Total Score = Balance + Gait 05/06. Tinetti tool score: < = 18 High. Physical Education Intervention Physical Therapy Education: Pt was educated on the importance of cyrotherapy and elevation. Reviewed proper pillow placement under LE to maintain good extension. Stressed the importance also of ambulating at at least every other hour for 2-5 minutes duration and completion of HEP 2x/day. Patient was educated with regards to signs and symptoms to monitor with respect to blood clots and infection. Therapeutic Exercise : Pt completed right LE supine exercises of glut sets, quad sets, heel slides and ankle pumps (hourly) at this time, 10x. Completed seated LAQ of 2 sets of 5 reps. Pt completed 10x of knee flexion with gentle flexion stretch with plastic bag. Completed standing heel raises, right marches, hip abduction, ham curls and mini squats. Completed static knee extension on chair x 5 minutes. HEP updated and instructed. Gait Training: Gait training this date with FWW with instruction for reciprocal gait pattern for right affective LE with increase cues for heel to toe pattern and knee flexion during swing. Worked onwalking along kitchen sink with one handed support to pre-gait training toward str cane; sBA with no antaligic pattern. Trailed str cane throughout home; patient demonstrated improved two point gait pattern at close SBA with no LOB. Therapeutic Activity: All transfers performed at mod indep. Assessment & Plan Pt is making steady slow gains in ROM and strength gains. Demonstrated improved gait performance with cane this date. Assessment Impairments: abnormal gait, abnormal or restricted ROM, impaired balance, impaired physical strength, pain with function and weight-bearing intolerance Barriers to therapy: Increased pain, edema,bruising and knee weakness. Prognosis: good Goals Short Term Goals Goal 1 : Patient will be independent with HEP with good compliance and independence. Goal 2 : Patient will demonstrate 3-90 degrees of passive range of motion of right knee flexion. Goal 3 : Patient will ambulate >6 minutes modified independently with wheeled walker with good reciprocal gait pattern. Goal 4 : Patient will demonstrate all sit< >stand transfers and supine< >sit bed mobility, modified independent with no cues for proper sequencing. Goal 5 : Patient will ascend/descend 2-3 steps with AD with supervision, step to gait pattern. Senior Living Goals Goal 1 : Patient will demonstrate 0-110 degrees of active Right knee flexion in order to improve indpendence with ambulation up and down steps. Goal 2 : Patient will demonstrate 4+/5 or better right knee strength in order to safely return to activities of interest. Goal 3 : Patient will ambulate community distances on even and uneven surfaces, independently with no AD, normalized gait pattern and < 1/10 report of pain in leftt knee. Goal 4 : Pt will ascend/descend 12+ steps with railing with reciprical gait pattern independently. Goal 5 : Patient will demonstrate good static and dynamic standing balance for >15 mintues without LOB or increase in knee pain. Goal 6 : Pt will improve Tinetti Balance test to 28/28 to indicate no fall risk. Plan Planned modality interventions: cryotherapy Planned therapy interventions: bed mobility training, dressing changes, functional ROM exercises, gait training, home exercise program, manual therapy, neuromuscular re-education, soft tissue mobilization, strengthening, stretching, therapeutic activities and transfer training Frequency: 3x/week. Duration in weeks: 6 Treatment plan discussed with: patient Plan details: Educated to continue icing and elevating. Pt to start OP [facility] next week. documented in this encounterSaint [facility]ry [id number] History of Present illness Narrative* Clint Boogie DO - 07/15/2024 2:15 PM EST Images from the original note were not included. @ENCDATE@ Carly Cesar is a 54 y.o. female who presents for Post-op Visit of the Right Knee (R TKA 06/30/24) HPI: History of Present Illness The patient is 15 days status post right total knee arthroplasty, date of surgery 06/30/2024. She is accompanied by her . She is ambulating with a cane. She has started to experience some numbness and tingling in her right hand since surgery. She is scheduled to start outpatient physical therapy at [facility] next Friday. SUBJECTIVE: MEDICATIONS: Current Outpatient Medications Medication Instructions [...] Daily RT FIBER PO Take by mouth HYDROcodone-acetaminophen ([place]) 5-325 MG tablet 1-2 tablets, Oral, Every 4 hours PRN Multiple Vitamin (multivitamin) tablet 1 tablet, Daily pramipexole (Mirapex) 1 MG tablet Protonix 40 MG EC tablet Every 24 hours rosuvastatin (Crestor) 20 MG tablet VITAMIN D PO Take by mouth Zepbound 10 MG/0.5ML solution auto-injector INJECT 0.5 ML SUBCUTANEOUSLY EVERY WEEK FOR WEIGHT LOSS ALLERGIES: No Known Allergies SURGICAL HISTORY: Past Surgical History: Procedure Laterality Date CERVICAL BIOPSY W/ LOOP ELECTRODE EXCISION 2005 CLAVICLE SURGERY Right 02/24/[address] Lozada KNEE ARTHROPLASTY MASS EXCISION 10/2014 r/o left neck mass MENISCECTOMY -2023 OTHER SURGICAL HISTORY Procedure:excised;Disease:hx fibrolipomas TOTAL KNEE ARTHROPLASTY Right 06/30/2024 DANTE REVIEW OF SYMPTOMS: The review of systems, history and current medications list are all reviewed today. OBJECTIVE: Visit Vitals Ht 5' 2 Wt 175 lb BMI 32.01 kg/m Smoking Status Never BSA 1.86 m Physical Exam The incision on the right knee is benign. There is no wound dehiscence or drainage. Mild swelling is present. A small bruise is noted along the medial thigh. The knee has full extension and flexion is to 90 degrees. Homans' sign is negative. Ankle's plantar flexion and dorsiflexion are intact. The foot is well perfused. Results Three views, bilateral PA weight-bearing/sunrise/lateral right knee, taken today and saved to the permanent medical record are reviewed. Prosthesis is unchanged in position and alignment. No signs ofprosthetic wear or loosening. No periprosthetic fractures. ASSESSMENT AND PLAN: I reviewed the history, physical exam, diagnostic studies, and diagnosis with the patient. Assessment & Plan 1. Postoperative status following right total knee arthroplasty, 15 days post-surgery. She will persist with her rehabilitation regimen. Today, her sutures were removed. She is advised to maintain personal hygiene by showering regularly using gentle soap and water. A prescription for [place] was issued to manage postoperative pain. The paresthesias in her right hand could be attributedto the use of a walker and cane, as well as the positioning of her arm during the postoperative period. This symptom will be monitored. Follow-up The patient will follow up in 4 weeks, during which radiographic imaging of the right knee will be performed. Diagnoses and all orders for this visit: S/P total knee arthroplasty, right - XR knee 3 views right - HYDROcodone-acetaminophen ([place]) 5-325 MG tablet; Take 1-2 tablets by mouth every 4 (four) hoursif needed (pain) for up to 7 days Clint Boogei D.O. Attestation This note was created using voice recognition through [employer] documented in this encounterSaint [facility]–Barry [id number] History of Present illness Narrative* Simi Aragon, PT - 07/14/2024 9:00 AM EST Physical Therapy Physical Therapy Daily Visit Patient Name: Carly Cesar Today's Date: 07/14/2024 Subjective Current Problem: s/p right TKA with pain and difficulty walking. Pt is being seen today for follow up visit for s/p right TKA. Pt voiced nights are still tough with sleeping. Date of Surgery: 06/30/2024 with same day discharge Current deficits: Difficulty with all mobility secondary to recent right TKA and pain. Visit Number 7. Time In: 9:00 am; Time out: 9:40 am Total time: 40 minutes [id number] TherEx x 30 minutes [id number] gait training x 10 minutes Precautions: WBAT Right LE; Right TKA protocol; Recent left TKA Pain Management: The patient is complaining of pain located in the Righ knee and thigh region. Painrating 4/10. The pain is improved by ice and medication 1 every 6 hours of Mounika and Tylenol. The pain is aggravated by activity. The pain is described as aching, throbbing and stiffness. Prior level of function: Ambulation: antalgic gait pattern on Right LE. Assistive devices: FWW, cane ADL and IADL: Independent. Home Environment: Pt lives with her and family in a two story home with 2-3 steps to enter.Bedroom on first floor. home to assist. Objective General Visit Information: Passive ROM: Left knee 5 to 90-92 degrees. Joint play: hypomobile. Manual muscle testing: Left knee flexion/extension: 3+/5. Palpation: Minimal warmth upon palpation,consistent with post-operative conditions. Surgical incision intact with Mepilex dressing with no signs of drainage. Special tests: Negative Melyssa Sign. Functional Mobility: Bed Mobility: mod indep Sit to Stand: mod indep Stair Negotiation: SBA Ambulation: Patient is ambulating with mild antalgic type pattern with FWW, reciprocal gait pattern; good heel to toe gait pattern; mod indep. Pt ambulated approx 250' x 2 with slow javier. Good knee flexion during swing phase. Tinetti Gait and Balance Assessment: Sitting balance: Steady, safe = 1. Rises from chair: needs assistance= 1. Attempts to rise: needs assistance= 1. Immediate standing balance (first 5 seconds): Steady but uses walker or other support = 1. Standing balance: Steady but uses walker or other support = 1. Nudged: Staggers, grabs, catches self = 1. Eyes closed: Steady = 1. Turning 360 degrees: Discontinuous steps = 0 , Unsteady (grabs, staggers) = 0. Sitting down: Uses arms or not a smooth motion = 1. Balance Score: 8/16. Indication of gait: No hesitancy = 1. Step of length and height: Step to = 0. Foot clearance: L foot clears floor = 1 , R foot clears floor = 1. Step symmetry: Right and left step length no equal = 0. Step continuity: Stopping or discontinuity between steps = 0. Path: Mild/moderate deviation or uses w/ aid = 1. Trunk: No sway but flex knees or back or uses arms for stability = 1. Walking time: Heels apart = 0. Gait score: 10/18. Total Score = Balance + Gait 05/06. Tinetti tool score: < = 18 High. Physical Education Intervention Physical Therapy Education: Pt was educated on the importance of cyrotherapy and elevation. Reviewed proper pillow placement under LE to maintain good extension. Stressed the importance also of ambulating at at least every other hour for 2-5 minutes duration and completion of HEP 2x/day. Patient was educated with regards to signs and symptoms to monitor with respect to blood clots and infection. Therapeutic Exercise : Pt completed right LE supine exercises of glut sets, quad sets, heel slides and ankle pumps (hourly) at this time, 10x. Completed seated LAQ of 2 sets of 5 reps. Pt completed 10x of knee flexion with gentle flexion stretch with plastic bag. Completed standing heel raises, right marches, hip abduction, ham curls and mini squats. Completed static knee extension on chair x 5 minutes. HEP updated and instructed. Gait Training: Gait training this date with FWW with instruction for reciprocal gait pattern for right affective LE with increase cues for heel to toe pattern and knee flexion during swing. Worked onwalking along kitchen sink with one handed support to pre-gait training toward str cane; sBA with no antaligic pattern. Trailed str cane throughout home; patient demonstrated improved two point gait pattern at close SBA with no LOB. Therapeutic Activity: All transfers performed at [facility]. Assessment & Plan Pt is making steady slow gains in ROM and strength gains. Demonstrated improved gait performance with cane this date. Assessment Impairments: abnormal gait, abnormal or restricted ROM, impaired balance, impaired physical strength, pain with function and weight-bearing intolerance Barriers to therapy: Increased pain, edema,bruising and knee weakness. Prognosis: good Goals Short Term Goals Goal 1 : Patient will be independent with HEP with good compliance and independence. Goal 2 : Patient will demonstrate 3-90 degrees of passive range of motion of right knee flexion. Goal 3 : Patient will ambulate >6 minutes modified independently with wheeled walker with good reciprocal gait pattern. Goal 4 : Patient will demonstrate all sit< >stand transfers and supine< >sit bed mobility, modified independent with no cues for proper sequencing. Goal 5 : Patient will ascend/descend 2-3 steps with AD with supervision, step to gait pattern. Senior Living Goals Goal 1 : Patient will demonstrate 0-110 degrees of active Right knee flexion in order to improve indpendence with ambulation up and down steps. Goal 2 : Patient will demonstrate 4+/5 or better right knee strength in order to safely return to activities of interest. Goal 3 : Patient will ambulate community distances on even and uneven surfaces, independently with no AD, normalized gait pattern and < 1/10 report of pain in leftt knee. Goal 4 : Pt will ascend/descend 12+ steps with railing with reciprical gait pattern independently. Goal 5 : Patient will demonstrate good static and dynamic standing balance for >15 mintues without LOB or increase in knee pain. Goal 6 : Pt will improve Tinetti Balance test to 28/28 to indicate no fall risk. Plan Planned modality interventions: cryotherapy Planned therapy interventions: bed mobility training, dressing changes, functional ROM exercises, gait training, home exercise program, manual therapy, neuromuscular re-education, soft tissue mobilization, strengthening, stretching, therapeutic activities and transfer training Frequency: 3x/week. Duration in weeks: 6 Treatment plan discussed with: patient Plan details: Educated to continue icing and elevating. Pt to start OP at [facility] next week. documented in this encounterSaint [facility] [id number] History of Present illness Narrative* Simi Aragon PT - 07/12/2024 9:00 AM EST Physical Therapy Physical Therapy Daily Visit Patient Name: Carly Cesar Today's Date: 07/12/2024 Subjective Current Problem: s/p right TKA with pain and difficulty walking. Pt is being seen today for follow up visit for s/p right TKA. Date of Surgery: 06/30/2024 with same day discharge Current deficits: Difficulty with all mobility secondary to recent right TKA and pain. Visit Number 6. Time In: 9:00 am; Time out: 9:40 am Total time: 40 minutes [id number] TherEx x 30 minutes [id number] gait training x 10 minutes Precautions: WBAT Right LE; Right TKA protocol; Recent left TKA Pain Management: The patient is complaining of pain located in the Righ knee and thigh region. Painrating 5/10. The pain is improved by ice and medication 1 every 4-6 hours of Mounika and Tylenol. The pain is aggravated by activity. The pain is described as aching, throbbing and stiffness. Prior level of function: Ambulation: antalgic gait pattern on Right LE. Assistive devices: FWW, cane ADL and IADL: Independent. Home Environment: Pt lives with her and family in a two story home with 2-3 steps to enter.Bedroom on first floor. home to assist. Objective General Visit Information: Passive ROM: Left knee 10 to 85-90 degrees. Joint play: hypomobile. Manual muscle testing: Left knee flexion/extension: 3/5. Palpation: Minimal warmth upon palpation, consistent with post-operative conditions. Surgical incision intact with Mepilex dressing with no signs of drainage. Special tests: Negative Melyssa Sign. Functional Mobility: Bed Mobility: mod indep Sit to Stand: mod indep Stair Negotiation: TBA Ambulation: Patient is ambulating with mild antalgic type pattern with FWW, reciprocal gait pattern; good heel to toe gait pattern; SBA. Pt ambulated approx 50' x 2 with slow javier. Limited knee flexion during swing phase. Tinetti Gait and Balance Assessment: Sitting balance: Steady, safe = 1. Rises from chair: needs assistance= 1. Attempts to rise: needs assistance= 1. Immediate standing balance (first 5 seconds): Steady but uses walker or other support = 1. Standing balance: Steady but uses walker or other support = 1. Nudged: Staggers, grabs, catches self = 1. Eyes closed: Steady = 1. Turning 360 degrees: Discontinuous steps = 0 , Unsteady (grabs, staggers) = 0. Sitting down: Uses arms or not a smooth motion = 1. Balance Score: 8/16. Indication of gait: No hesitancy = 1. Step of length and height: Step to = 0. Foot clearance: L foot clears floor = 1 , R foot clears floor = 1. Step symmetry: Right and left step length no equal = 0. Step continuity: Stopping or discontinuity between steps = 0. Path: Mild/moderate deviation or uses w/ aid = 1. Trunk: No sway but flex knees or back or uses arms for stability = 1. Walking time: Heels apart = 0. Gait score: 10/18. Total Score = Balance + Gait 05/06. Tinetti tool score: < = 18 High. Physical Education Intervention Physical Therapy Education: Pt was educated on the importance of cyrotherapy and elevation. Reviewed proper pillow placement under LE to maintain good extension. Stressed the importance also of ambulating at at least every other hour for 2-5 minutes duration and completion of HEP 2x/day. Patient was educated with regards to signs and symptoms to monitor with respect to blood clots and infection. Therapeutic Exercise : Pt completed right LE supine exercises of glut sets, quad sets, heel slides and ankle pumps (hourly) at this time, 10x. Completed seated LAQ of 2 sets of 5 reps. Pt completed 10x of knee flexion with gentle flexion stretch with plastic bag. Completed standing heel raises, right marches, hip abduction, ham curls and mini squats. Completed static knee extension on chair x 5 minutes. HEP updated and instructed. Gait Training: Gait training this date with FWW with instruction for reciprocal gait pattern for right affective LE with increase cues for heel to toe pattern and knee flexion during swing. Worked onwalking along kitchen sink with one handed support to pre-gait training toward str cane; sBA with no antaligic pattern. Trailed str cane throughout home; patient demonstrated improved two point gait pattern at close SBA with no LOB. Therapeutic Activity: Worked on proper sit to stand, stand to sit transfers this date from bedside with good carryover with SBA with verbal cues for proper sequencing and hand placement; heavy dependence on arms to get self up. Worked on getting on/off of couch; SBA only this date. Assessment & Plan Pt is making steady slow gains in ROM and strength gains. Assessment Impairments: abnormal gait, abnormal or restricted ROM, impaired balance, impaired physical strength, pain with function and weight-bearing intolerance Barriers to therapy: Increased pain, edema,bruising and knee weakness. Prognosis: good Goals Short Term Goals Goal 1 : Patient will be independent with HEP with good compliance and independence. Goal 2 : Patient will demonstrate 3-90 degrees of passive range of motion of right knee flexion. Goal 3 : Patient will ambulate >6 minutes modified independently with wheeled walker with good reciprocal gait pattern. Goal 4 : Patient will demonstrate all sit< >stand transfers and supine< >sit bed mobility, modified independent with no cues for proper sequencing. Goal 5 : Patient will ascend/descend 2-3 steps with AD with supervision, step to gait pattern. Senior Living Goals Goal 1 : Patient will demonstrate 0-110 degrees of active Right knee flexion in order to improve indpendence with ambulation up and down steps. Goal 2 : Patient will demonstrate 4+/5 or better right knee strength in order to safely return to activities of interest. Goal 3 : Patient will ambulate community distances on even and uneven surfaces, independently with no AD, normalized gait pattern and < 1/10 report of pain in leftt knee. Goal 4 : Pt will ascend/descend 12+ steps with railing with reciprical gait pattern independently. Goal 5 : Patient will demonstrate good static and dynamic standing balance for >15 mintues without LOB or increase in knee pain. Goal 6 : Pt will improve Tinetti Balance test to 28/28 to indicate no fall risk. Plan Planned modality interventions: cryotherapy Planned therapy interventions: bed mobility training, dressing changes, functional ROM exercises, gait training, home exercise program, manual therapy, neuromuscular re-education, soft tissue mobilization, strengthening, stretching, therapeutic activities and transfer training Frequency: 3x/week. Duration in weeks: 6 Treatment plan discussed with: patient Plan details: Educated to continue icing and elevating. documented in this encounterSaint [facility] [id number] History of Present illness Narrative* Simi Aragon, PT - 07/09/2024 9:00 AM EST Physical Therapy Physical Therapy Daily Visit Patient Name: Carly Cesar Today's Date: 07/09/2024 Subjective Current Problem: s/p right TKA with pain and difficulty walking. Pt is being seen today for follow up visit for s/p right TKA. Date of Surgery: 06/30/2024 with same day discharge Current deficits: Difficulty with all mobility secondary to recent right TKA and pain. Visit Number 5. Time In: 9:00 am; Time out: 9:40 am Total time: 40 minutes [id number] TherEx x 30 minutes [id number] gait training x 10 minutes Precautions: WBAT Right LE; Right TKA protocol; Recent left TKA Pain Management: The patient is complaining of pain located in the Righ knee and thigh region. Painrating 5/10. The pain is improved by ice and medication 1 every 4-6 hours of Mounika and Tylenol. The pain is aggravated by activity. The pain is described as aching, throbbing and stiffness. Prior level of function: Ambulation: antalgic gait pattern on Right LE. Assistive devices: FWW, cane ADL and IADL: Independent. Home Environment: Pt lives with her and family in a two story home with 2-3 steps to enter.Bedroom on first floor. home to assist. Objective General Visit Information: Passive ROM: Left knee 10 to 85-90 degrees. Joint play: hypomobile. Manual muscle testing: Left knee flexion/extension: 3/5. Palpation: Minimal warmth upon palpation, consistent with post-operative conditions. Surgical incision intact with Mepilex dressing with no signs of drainage. Special tests: Negative Melyssa Sign. Functional Mobility: Bed Mobility: mod indep Sit to Stand: mod indep Stair Negotiation: TBA Ambulation: Patient is ambulating with mild antalgic type pattern with FWW, reciprocal gait pattern; good heel to toe gait pattern; SBA. Pt ambulated approx 50' x 2 with slow javier. Limited knee flexion during swing phase. Tinetti Gait and Balance Assessment: Sitting balance: Steady, safe = 1. Rises from chair: needs assistance= 1. Attempts to rise: needs assistance= 1. Immediate standing balance (first 5 seconds): Steady but uses walker or other support = 1. Standing balance: Steady but uses walker or other support = 1. Nudged: Staggers, grabs, catches self = 1. Eyes closed: Steady = 1. Turning 360 degrees: Discontinuous steps = 0 , Unsteady (grabs, staggers) = 0. Sitting down: Uses arms or not a smooth motion = 1. Balance Score: 8/16. Indication of gait: No hesitancy = 1. Step of length and height: Step to = 0. Foot clearance: L foot clears floor = 1 , R foot clears floor = 1. Step symmetry: Right and left step length no equal = 0. Step continuity: Stopping or discontinuity between steps = 0. Path: Mild/moderate deviation or uses w/ aid = 1. Trunk: No sway but flex knees or back or uses arms for stability = 1. Walking time: Heels apart = 0. Gait score: 10/18. Total Score = Balance + Gait 05/06. Tinetti tool score: < = 18 High. Physical Education Intervention Physical Therapy Education: Pt was educated on the importance of cyrotherapy and elevation. Reviewed proper pillow placement under LE to maintain good extension. Stressed the importance also of ambulating at at least every other hour for 2-5 minutes duration and completion of HEP 2x/day. Patient was educated with regards to signs and symptoms to monitor with respect to blood clots and infection. Therapeutic Exercise : Pt completed right LE supine exercises of glut sets, quad sets, heel slides and ankle pumps (hourly) at this time, 10x. Completed seated LAQ of 2 sets of 5 reps. Pt completed 10x of knee flexion with gentle flexion stretch with plastic bag. Completed standing heel raises, right marches, hip abduction, ham curls and mini squats. Completed static knee extension on chair x 5 minutes. HEP updated and instructed. Gait Training: Gait training this date with FWW with instruction for reciprocal gait pattern for right affective LE with increase cues for heel to toe pattern and knee flexion during swing. Worked onwalking along kitchen sink with one handed support to pre-gait training toward str cane; sBA with no antaligic pattern. Trailed str cane throughout home with visual demonstration provided prior to attempt; patient demonstrated fair two point gait pattern at close SBA with no LOB but needs more practice due to hesitation. Therapeutic Activity: Worked on proper sit to stand, stand to sit transfers this date from bedside with good carryover with SBA with verbal cues for proper sequencing and hand placement; heavy dependence on arms to get self up. Worked on getting on/off of couch; SBA only this date. Assessment & Plan Pt is making steady slow gains in ROM and strength gains. Assessment Impairments: abnormal gait, abnormal or restricted ROM, impaired balance, impaired physical strength, pain with function and weight-bearing intolerance Barriers to therapy: Increased pain, edema,bruising and knee weakness. Prognosis: good Goals Short Term Goals Goal 1 : Patient will be independent with HEP with good compliance and independence. Goal 2 : Patient will demonstrate 3-90 degrees of passive range of motion of right knee flexion. Goal 3 : Patient will ambulate >6 minutes modified independently with wheeled walker with good reciprocal gait pattern. Goal 4 : Patient will demonstrate all sit< >stand transfers and supine< >sit bed mobility, modified independent with no cues for proper sequencing. Goal 5 : Patient will ascend/descend 2-3 steps with AD with supervision, step to gait pattern. Dye Line Operator Goals Goal 1 : Patient will demonstrate 0-110 degrees of active Right knee flexion in order to improve indpendence with ambulation up and down steps. Goal 2 : Patient will demonstrate 4+/5 or better right knee strength in order to safely return to activities of interest. Goal 3 : Patient will ambulate community distances on even and uneven surfaces, independently with no AD, normalized gait pattern and < 1/10 report of pain in leftt knee. Goal 4 : Pt will ascend/descend 12+ steps with railing with reciprical gait pattern independently. Goal 5 : Patient will demonstrate good static and dynamic standing balance for >15 mintues without LOB or increase in knee pain. Goal 6 : Pt will improve Tinetti Balance test to 28/28 to indicate no fall risk. Plan Planned modality interventions: cryotherapy Planned therapy interventions: bed mobility training, dressing changes, functional ROM exercises, gait training, home exercise program, manual therapy, neuromuscular re-education, soft tissue mobilization, strengthening, stretching, therapeutic activities and transfer training Frequency: 3x/week. Duration in weeks: 6 Treatment plan discussed with: patient Plan details: Educated to continue icing and elevating. documented in this [facility]01-29-2025 History of Present illness Narrative* Simi Aragon, PT - 07/07/2024 9:00 AM EST Physical Therapy Physical Therapy Daily Visit Patient Name: Carly Cesar Today's Date: 07/07/2024 Subjective Current Problem: s/p right TKA with pain and difficulty walking. Pt is being seen today for follow up visit for s/p right TKA. Date of Surgery: 06/30/2024 with same day discharge Current deficits: Difficulty with all mobility secondary to recent right TKA and pain. Visit Number 4. Time In: 9:00 am; Time out: 9:40 am Total time: 40 minutes [id number] TherEx x 30 minutes [id number] gait training x 10 minutes Precautions: WBAT Right LE; Right TKA protocol; Recent left TKA Pain Management: The patient is complaining of pain located in the Righ knee and thigh region. Painrating 5/10. The pain is improved by ice and medication 1 every 4-6 hours of Mounika and Tylenol. The pain is aggravated by activity. The pain is described as aching, throbbing and stiffness. Prior level of function: Ambulation: antalgic gait pattern on Right LE. Assistive devices: FWW, cane ADL and IADL: Independent. Home Environment: Pt lives with her and family in a two story home with 2-3 steps to enter.Bedroom on first floor. home to assist. Objective General Visit Information: Passive ROM: Left knee 10 to 85-90 degrees. Joint play: hypomobile. Manual muscle testing: Left knee flexion/extension: 3-/5. Palpation: Minimal warmth upon palpation,consistent with post-operative conditions. Surgical incision intact with Mepilex dressing with no signs of drainage. Special tests: Negative Melyssa Sign. Functional Mobility: Bed Mobility: min A Sit to Stand: SBA Stair Negotiation: TBA Ambulation: Patient is ambulating with mild antalgic type pattern with FWW, step to gait pattern; good heel to toe gait pattern; SBA. Pt ambulated approx 50' x 2 with slow javier. Limited knee flexion during swing phase. Tinetti Gait and Balance Assessment: Sitting balance: Steady, safe = 1. Rises from chair: needs assistance= 1. Attempts to rise: needs assistance= 1. Immediate standing balance (first 5 seconds): Steady but uses walker or other support = 1. Standing balance: Steady but uses walker or other support = 1. Nudged: Staggers, grabs, catches self = 1. Eyes closed: Steady = 1. Turning 360 degrees: Discontinuous steps = 0 , Unsteady (grabs, staggers) = 0. Sitting down: Uses arms or not a smooth motion = 1. Balance Score: 8/16. Indication of gait: No hesitancy = 1. Step of length and height: Step to = 0. Foot clearance: L foot clears floor = 1 , R foot clears floor = 1. Step symmetry: Right and left step length no equal = 0. Step continuity: Stopping or discontinuity between steps = 0. Path: Mild/moderate deviation or uses w/ aid = 1. Trunk: No sway but flex knees or back or uses arms for stability = 1. Walking time: Heels apart = 0. Gait score: 10/18. Total Score = Balance + Gait 05/06. Tinetti tool score: < = 18 High. Physical Education Intervention Physical Therapy Education: Pt was educated on the importance of cyrotherapy and elevation. Reviewed proper pillow placement under LE to maintain good extension. Stressed the importance also of ambulating at at least every other hour for 2-5 minutes duration and completion of HEP 2x/day. Patient was educated with regards to signs and symptoms to monitor with respect to blood clots and infection. Therapeutic Exercise : Pt completed right LE supine exercises of glut sets, quad sets, heel slides and ankle pumps (hourly) at this time, 10x. Completed seated LAQ of 2 sets of 5 reps. Pt completed 10x of knee flexion with gentle flexion stretch with plastic bag. Completed standing heel raises, right marches, hip abduction, ham curls and mini squats. HEP updated and instructed. Gait Training: Gait training this date with FWW with instruction for reciprocal gait pattern for right affective LE with increase cues for heel to toe pattern and knee flexion during swing. Worked onwalking along kitchen sink with one handed support to pre-gait training toward str cane; sBA with no antaligic pattern. Therapeutic Activity: Worked on proper sit to stand, stand to sit transfers this date from bedside with good carryover with SBA with verbal cues for proper sequencing and hand placement; heavy dependence on arms to get self up. Worked on getting on/off of couch; SBA only this date. Assessment & Plan Pt is making steady slow gains in ROM and strength gains. Assessment Impairments: abnormal gait, abnormal or restricted ROM, impaired balance, impaired physical strength, pain with function and weight-bearing intolerance Barriers to therapy: Increased pain, edema,bruising and knee weakness. Prognosis: good Goals Short Term Goals Goal 1 : Patient will be independent with HEP with good compliance and independence. Goal 2 : Patient will demonstrate 3-90 degrees of passive range of motion of right knee flexion. Goal 3 : Patient will ambulate >6 minutes modified independently with wheeled walker with good reciprocal gait pattern. Goal 4 : Patient will demonstrate all sit< >stand transfers and supine< >sit bed mobility, modified independent with no cues for proper sequencing. Goal 5 : Patient will ascend/descend 2-3 steps with AD with supervision, step to gait pattern. Senior Living Goals Goal 1 : Patient will demonstrate 0-110 degrees of active Right knee flexion in order to improve indpendence with ambulation up and down steps. Goal 2 : Patient will demonstrate 4+/5 or better right knee strength in order to safely return to activities of interest. Goal 3 : Patient will ambulate community distances on even and uneven surfaces, independently with no AD, normalized gait pattern and < 1/10 report of pain in leftt knee. Goal 4 : Pt will ascend/descend 12+ steps with railing with reciprical gait pattern independently. Goal 5 : Patient will demonstrate good static and dynamic standing balance for >15 mintues without LOB or increase in knee pain. Goal 6 : Pt will improve Tinetti Balance test to 28/28 to indicate no fall risk. Plan Planned modality interventions: cryotherapy Planned therapy interventions: bed mobility training, dressing changes, functional ROM exercises, gait training, home exercise program, manual therapy, neuromuscular re-education, soft tissue mobilization, strengthening, stretching, therapeutic activities and transfer training Frequency: 3x/week. Duration in weeks: 6 Treatment plan discussed with: patient Plan details: Educated to continue icing and elevating. [facility] [id number] History of Present illness Narrative* Simi Aragon, PT - 07/05/2024 2:15 PM EST Physical Therapy Physical Therapy Daily Visit Patient Name: Carly Cesar Today's Date: 07/05/2024 Subjective Current Problem: s/p right TKA with pain and difficulty walking. Pt is being seen today for follow up visit for s/p right TKA. Date of Surgery: 06/30/2024 with same day discharge Current deficits: Difficulty with all mobility secondary to recent right TKA and pain. Visit Number 3. Time In: 1:10 pm; Time out: 1:50 pm Total time: 40 minutes [id number] TherEx x 30 minutes [id number] gait training x 10 minutes Precautions: WBAT Right LE; Right TKA protocol; Recent left TKA Pain Management: The patient is complaining of pain located in the Righ knee and thigh region. Painrating 8/10. The pain is improved by ice and medication 1 every 4 hours of Mounika and Tylenol. The pain is aggravated by activity. The pain is described as aching, throbbing and stiffness. Prior level of function: Ambulation: antalgic gait pattern on Right LE. Assistive devices: FWW, cane ADL and IADL: Independent. Home Environment: Pt lives with her and family in a two story home with 2-3 steps to enter.Bedroom on first floor. home to assist. Objective General Visit Information: Passive ROM: Left knee 10 to 83 degrees. Joint play: hypomobile. Manual muscle testing: Left knee flexion/extension: 3-/5. Palpation: Minimal warmth upon palpation,consistent with post-operative conditions. Surgical incision intact with Mepilex dressing with no signs of drainage. Special tests: Negative Melyssa Sign. Functional Mobility: Bed Mobility: min A Sit to Stand: SBA Stair Negotiation: TBA Ambulation: Patient is ambulating with mild antalgic type pattern with FWW, step to gait pattern; good heel to toe gait pattern; SBA. Pt ambulated approx 50' x 2 with slow javier. Limited knee flexion during swing phase. Tinetti Gait and Balance Assessment: Sitting balance: Steady, safe = 1. Rises from chair: needs assistance= 1. Attempts to rise: needs assistance= 1. Immediate standing balance (first 5 seconds): Steady but uses walker or other support = 1. Standing balance: Steady but uses walker or other support = 1. Nudged: Staggers, grabs, catches self = 1. Eyes closed: Steady = 1. Turning 360 degrees: Discontinuous steps = 0 , Unsteady (grabs, staggers) = 0. Sitting down: Uses arms or not a smooth motion = 1. Balance Score: 8/16. Indication of gait: No hesitancy = 1. Step of length and height: Step to = 0. Foot clearance: L foot clears floor = 1 , R foot clears floor = 1. Step symmetry: Right and left step length no equal = 0. Step continuity: Stopping or discontinuity between steps = 0. Path: Mild/moderate deviation or uses w/ aid = 1. Trunk: No sway but flex knees or back or uses arms for stability = 1. Walking time: Heels apart = 0. Gait score: /12. Total Score = Balance + Gait 05/06. Tinetti tool score: < = 18 High. Physical Education Intervention Physical Therapy Education: Pt was educated on the importance of cyrotherapy and elevation. Reviewed proper pillow placement under LE to maintain good extension. Stressed the importance also of ambulating at at least every other hour for 2-5 minutes duration and completion of HEP 2x/day. Patient was educated with regards to signs and symptoms to monitor with respect to blood clots and infection. Therapeutic Exercise : Pt completed right LE supine exercises of glut sets, quad sets, heel slides and ankle pumps (hourly) at this time, 10x. Added seated LAQ of 2 sets of 5 reps. Pt completed 10x of knee flexion with gentle flexion stretch with plastic bag. Completed standing heel raises, right marches, hip abduction, ham curls and mini squats. HEP updated and instructed. Gait Training: Gait training this date with FWW with instruction for step to gait pattern for rightaffective LE with increase cues for heel to toe pattern and knee flexion during swing. Therapeutic Activity: Worked on proper sit to stand, stand to sit transfers this date from bedside with good carryover with SBA with verbal cues for proper sequencing and hand placement; heavy dependence on arms to get self up. Worked on getting on/off of couch; SBA only this date. Assessment & Plan Assessment Impairments: abnormal gait, abnormal or restricted ROM, impaired balance, impaired physical strength, pain with function and weight-bearing intolerance Barriers to therapy: Increased pain, edema,bruising and knee weakness. Prognosis: good Goals Short Term Goals Goal 1 : Patient will be independent with HEP with good compliance and independence. Goal 2 : Patient will demonstrate 3-90 degrees of passive range of motion of right knee flexion. Goal 3 : Patient will ambulate >6 minutes modified independently with wheeled walker with good reciprocal gait pattern. Goal 4 : Patient will demonstrate all sit< >stand transfers and supine< >sit bed mobility, modified independent with no cues for proper sequencing. Goal 5 : Patient will ascend/descend 2-3 steps with AD with supervision, step to gait pattern. Dye Line Operator Goals Goal 1 : Patient will demonstrate 0-110 degrees of active Right knee flexion in order to improve indpendence with ambulation up and down steps. Goal 2 : Patient will demonstrate 4+/5 or better right knee strength in order to safely return to activities of interest. Goal 3 : Patient will ambulate community distances on even and uneven surfaces, independently with no AD, normalized gait pattern and < 1/10 report of pain in leftt knee. Goal 4 : Pt will ascend/descend 12+ steps with railing with reciprical gait pattern independently. Goal 5 : Patient will demonstrate good static and dynamic standing balance for >15 mintues without LOB or increase in knee pain. Goal 6 : Pt will improve Tinetti Balance test to to indicate no fall risk. Plan Planned modality interventions: cryotherapy Planned therapy interventions: bed mobility training, dressing changes, functional ROM exercises, gait training, home exercise program, manual therapy, neuromuscular re-education, soft tissue mobilization, strengthening, stretching, therapeutic activities and transfer training Frequency: 3x/week. Duration in weeks: 6 Treatment plan discussed with: patient Plan details: Educated to continue icing and elevating. documented in this encounterSaint [facility] [id number] History of Present illness Narrative* Simi Aragon, PT - 07/01/2024 12:50 PM EST Physical Therapy Physical Therapy Evaluation Patient Name: Carly Cesar Today's Date: 07/01/2024 Subjective Current Problem: s/p right TKA with pain and difficulty walking. Pt is being seen today for initialevaluation for s/p right TKA. Date of Surgery: 06/30/2024 with same day discharge Current deficits: Difficulty with all mobility secondary to recent right TKA and pain. Visit Number 1. Time In: 12:45 pm; Time out: 1:30 pm Total time: 45 minutes [id number] PT Eval x 20 minutes [id number] TherEx x 15 minutes 22542 gait training x 10 minutes Precautions: WBAT Right LE; Right TKA protocol; Recent left TKA Pain Management: The patient is complaining of pain located in the Righ knee and thigh region. Painrating 8/10. The pain is improved by ice and medication 1 every 4 hours of Mounika and Tylenol. The pain is aggravated by activity. The pain is described as aching, throbbing and stiffness. Prior level of function: Ambulation: antalgic gait pattern on Right LE. Assistive devices: FWW, cane ADL and IADL: Independent. Home Environment: Pt lives with her and family in a two story home with 2-3 steps to enter.Bedroom on first floor. home to assist. Objective General Visit Information: Passive ROM: Left knee 10 to 65 degrees. Joint play: hypomobile. Manual muscle testing: Left knee flexion/extension: 3-/5. Palpation: Minimal warmth upon palpation,consistent with post-operative conditions. Surgical incision intact with Mepilex dressing with no signs of drainage. Special tests: Negative Melyssa Sign. Functional Mobility: Bed Mobility: min A Sit to Stand: SBA/CGA Stair Negotiation: TBA Ambulation: Patient is ambulating with mild antalgic type pattern with FWW, step to gait pattern; good heel to toe gait pattern; SBA. Pt ambulated approx 50' x 2 with slow javier. Limited knee flexion during swing phase. Tinetti Gait and Balance Assessment: Sitting balance: Steady, safe = 1. Rises from chair: needs assistance= 1. Attempts to rise: needs assistance= 1. Immediate standing balance (first 5 seconds): Steady but uses walker or other support = 1. Standing balance: Steady but uses walker or other support = 1. Nudged: Staggers, grabs, catches self = 1. Eyes closed: Steady = 1. Turning 360 degrees: Discontinuous steps = 0 , Unsteady (grabs, staggers) = 0. Sitting down: Uses arms or not a smooth motion = 1. Balance Score: 8/16. Indication of gait: No hesitancy = 1. Step of length and height: Step to = 0. Foot clearance: L foot clears floor = 1 , R foot clears floor = 1. Step symmetry: Right and left step length no equal = 0. Step continuity: Stopping or discontinuity between steps = 0. Path: Mild/moderate deviation or uses w/ aid = 1. Trunk: No sway but flex knees or back or uses arms for stability = 1. Walking time: Heels apart = 0. Gait score: 10/18. Total Score = Balance + Gait 05/06. Tinetti tool score: < = 18 High. Physical Education Intervention Physical Therapy Education: Pt was educated on the importance of cyrotherapy and elevation. Reviewed proper pillow placement under LE to maintain good extension. Stressed the importance also of ambulating at at least every other hour for 2-5 minutes duration and completion of HEP 2x/day. Patient was educated with regards to signs and symptoms to monitor with respect to blood clots and infection. Therapeutic Exercise : Pt completed right LE supine exercises of glut sets, quad sets, heel slides and ankle pumps (hourly) at this time, 10x. Pt completed 10x of knee flexion with gentle flexion stretch with plastic bag. HEP issued and instructed. Gait Training: Gait training this date with FWW with instruction for step to gait pattern for rightaffective LE with increase cues for heel to toe pattern and knee flexion during swing. Therapeutic Activity: Worked on proper sit to stand, stand to sit transfers this date from bedside with good carryover with SBA with verbal cues for proper sequencing and hand placement; heavy dependence on arms to get self up. Worked on getting on/off of couch; needed min/mod assist with right legassistance. Assessment & Plan Assessment Impairments: abnormal gait, abnormal or restricted ROM, impaired balance, impaired physical strength, pain with function and weight-bearing intolerance Barriers to therapy: Increased pain, edema,bruising and knee weakness. Prognosis: good Goals Short Term Goals Goal 1 : Patient will be independent with HEP with good compliance and independence. Goal 2 : Patient will demonstrate 3-90 degrees of passive range of motion of right knee flexion. Goal 3 : Patient will ambulate >6 minutes modified independently with wheeled walker with good reciprocal gait pattern. Goal 4 : Patient will demonstrate all sit< >stand transfers and supine< >sit bed mobility, modified independent with no cues for proper sequencing. Goal 5 : Patient will ascend/descend 2-3 steps with AD with supervision, step to gait pattern. Senior Living Goals Goal 1 : Patient will demonstrate 0-110 degrees of active Right knee flexion in order to improve indpendence with ambulation up and down steps. Goal 2 : Patient will demonstrate 4+/5 or better right knee strength in order to safely return to activities of interest. Goal 3 : Patient will ambulate community distances on even and uneven surfaces, independently with no AD, normalized gait pattern and < 1/10 report of pain in leftt knee. Goal 4 : Pt will ascend/descend 12+ steps with railing with reciprical gait pattern independently. Goal 5 : Patient will demonstrate good static and dynamic standing balance for >15 mintues without LOB or increase in knee pain. Goal 6 : Pt will improve Tinetti Balance test to 28/28 to indicate no fall risk. Plan Planned modality interventions: cryotherapy Planned therapy interventions: bed mobility training, dressing changes, functional ROM exercises, gait training, home exercise program, manual therapy, neuromuscular re-education, soft tissue mobilization, strengthening, stretching, therapeutic activities and transfer training Frequency: 3x/week. Duration in weeks: 6 Treatment plan discussed with: patient Plan details: Educated to continue icing and elevating. Pt will continues to benefit from PT interventions to improve overall strength, ROM and functional mobility to achieve PLOF. documented in this encounterSaint [facility] [id number] Hospital Discharge instructions Patient Education 06/30/2024 11:42:35 How to Use an Incentive Spirometer How to Use an Incentive Spirometer An incentive spirometer is a tool that measures how well you are filling your lungs with each breath. Learning to take long, deep breaths using this tool can help you keep your lungs clear and active. This may help to reverse or lessen your chance of developing breathing (pulmonary) problems, especially infection. You may be asked to use a spirometer: After a surgery. If you have a lung problem or a history of smoking. After a long period of time when you have been unable to move or be active. If the spirometer includes an indicator to show the highest number that you have reached, your health care provider or respiratory therapist will help you set a goal. Keep a log of your progress as told by your health care provider. What are the risks? Breathing too quickly may cause dizziness or cause you to pass out. Take your time so you do not get dizzy or light-headed. If you are in pain, you may need to take pain medicine before doing incentive spirometry. It is harder to take a deep breath if you are having pain. How to use your incentive spirometer 1.Sit up on the edge of your bed or on a chair. 2.Hold the incentive spirometer so that it is in an upright position. 3.Before you use the spirometer, breathe out normally. 4.Place the mouthpiece in your mouth. Make sure your lips are closed tightly around it. 5.Breathe in slowly and as deeply as you can through your mouth, causing the piston or the ball to rise toward the top of the chamber. 6.Hold your breath for 3 5 seconds, or for as long as possible. If the spirometer includes a employment coach indicator, use this to guide you in breathing. Slow down your breathing if the indicator goes above the marked areas. 7.Remove the mouthpiece from your mouth and breathe out normally. The piston or ball will return tothe bottom of the chamber. 8.Rest for a few seconds, then repeat the steps 10 or more times. Take your time and take a few normal breaths between deep breaths so that you do not get dizzy or light-headed. Do this every 1 2 hours when you are awake. 9.If the spirometer includes a goal marker to show the highest number you have reached (best effort), use this as a goal to work toward during each repetition. 10.After each set of 10 deep breaths, cough a few times. This will help to make sure that your lungs are clear. If you have an incision on your chest or abdomen from surgery, place a pillow or a rolled-up towel firmly against the incision when you cough. This can help to reduce pain while taking deep breaths and coughing. General tips When you are able to get out of bed: ?Walk around often. ?Continue to take deep breaths and cough in order to clear your lungs. Keep using the incentive spirometer until your health care provider says it is okay to stop using it. If you have been in the hospital, you may be told to keep using the spirometer at home. Contact a health care provider if: You are having difficulty using the spirometer. You have trouble using the spirometer as often as instructed. Your pain medicine is not giving enough relief for you to use the spirometer as told. You have a fever. Get help right away if: You develop shortness of breath. You develop a cough with bloody mucus from the lungs. You have fluid or blood coming from an incision site after you cough. Summary An incentive spirometer is a tool that can help you learn to take long, deep breaths to keep your lungs clear and active. You may be asked to use a spirometer after a surgery, if you have a lung problem or a history of smoking, or if you have been inactive for a long period of time. Use your incentive spirometer as instructed every 1 2 hours while you are awake. If you have an incision on your chest or abdomen, place a pillow or a rolled-up towel firmly against your incision when you cough. This will help to reduce pain. Get help right away if you have shortness of breath, you cough up bloody mucus, or blood comes fromyour incision when you cough. This information is not intended to replace advice given to you by your health care provider. Make sure you discuss any questions you have with your health care provider. Document Revised: 08/14/2020 Document Reviewed: 08/14/2020 [employer] Patient Education 2023 [employer]. 06/30/2024 11:42:33 Knee Cryocuff Patient Instructions - FT (CUSTOM) 06/30/2024 11:42:26 Post Op Patient Instructions - FT (Custom) (CUSTOM) 06/30/2024 07:29:45 Naren Boogie - Total Knee Arthroplasty (Custom) [place], [place] [facility] DISCHARGE INSTRUCTIONS: TOTAL KNEE ARTHROPLASTY INCISION CARE: The bandage may be changed by your home Physical Therapist at 7 days postoperatively and worn an additional 7 days. A new Mepilex bandage should then be placed. The bandage is waterproof, so you may shower at home. Steri-strips (paper tape strips) may be applied to the incision if any slight wound separation is noted. These should remain in place for five days and then they may come off in the shower. Please notify the office if any increase in redness, tenderness, drainage, fever, or wound separation is noted beyond this point. MEDICATIONS: You may resume your home medications at the time of discharge. Arixtra and Lovenox are mild blood thinners that prevent the development of blood clots in the legs. One of these has been used during your hospitalization. After discharge home you should continue the use of two stomach coated baby Aspirin tablets daily with your largest meal for 30 days after home discharge. Please notify your doctor if you have a stomach sensitivity to Aspirin or history of previous stomach ulcers. Pain medication has been prescribed as well. You may continue to use the pain medication every fourhours as needed. Any narcotic pain medication can cause side effects including stomach upset, constipation, or light-headedness. You should not drive or operate machinery, or drink alcohol while using the narcotic pain medication. You should not use other pain medications with this prescription pain medication unless further directed by your physician. PHYSICAL THERAPY Continue the range of motion and strengthening exercises initiated by Physical Therapy in the hospital. Continue weight bearing, as ordered, to the operated knee as directed in Physical Therapy. This will be with the use of a walker or crutches initially. Physical therapy as begun in the hospital will continue at home, possibly with the child development assistant of Home Health Physical Therapy or in the hospital as an outpatient. When you have become independent withthe physical therapy program, this will then be discontinued as a supervised program and you will be instructed to continue the physical therapy exercises at home. Your exercises are galvez to successful rehabilitation. You should gain full extension first, hopefully before hospital discharge, and gain 90 degrees flexion by one month post-op. Do the exercises daily, twice if preferred. DRIVING: Please do not drive for 4-6 weeks pending therapy progress. 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 It is therefore advised not to drive until after yourfirst office visit following surgery. FOLLOW-UP OFFICE VISIT: Clint Boogie, DO [facility] [address] [place] [address] Reviewed: 10-29 Follow Up Care 05/24/2024 16:07:09 With:Clint Boogie Address: [address] [place] [address] Business (1) When:07/15/2024 14:15:00 Comments:Appointment has already been scheduledCall for any problems. [facility] 01-22-2025 NotePatient Education - Text Pulmonary Medicine How to Use an Incentive Spirometer An incentive spirometer is a tool that measures how well you are filling your lungs with each breath. Learning to take long, deep breaths using this tool can help you keep your lungs clear and active. This may help to reverse or lessen your chance of developing breathing (pulmonary) problems, especially infection. You may be asked to use a spirometer: ??? After a surgery. ??? If you have a lung problem or a history of smoking. ??? After a long period of time when you have been unable to move or be active. If the spirometer includes an indicator to show the highest number that you have reached, your health care provider or respiratory therapist will help you set a goal. Keep a log of your progress as told by your health care provider. What are the risks? Breathing too quickly may cause dizziness or cause you to pass out. Take your time so you do not get dizzy or light-headed. ??? If you are in pain, you may need to take pain medicine before doing incentive spirometry. It isharder to take a deep breath if you are having pain. How to use your incentive spirometer 1. Sit up on the edge of your bed or on a chair. 2. Hold the incentive spirometer so that it is in an upright position. 3. Before you use the spirometer, breathe out normally. 4. Place the mouthpiece in your mouth. Make sure your lips are closed tightly around it. 5. Breathe in slowly and as deeply as you can through your mouth, causing the piston or the ball torise toward the top of the chamber. 6. Hold your breath for 3?5 seconds, or for as long as possible. ??? If the spirometer includes a employment coach indicator, use this to guide you in breathing. Slow down your breathing if the indicator goes above the marked areas. 7. Remove the mouthpiece from your mouth and breathe out normally. The piston or ball will return to the bottom of the chamber. 8. Rest for a few seconds, then repeat the steps 10 or more times. ??? Take your time and take a few normal breaths between deep breaths so that you do not get dizzy or light-headed. ??? Do this every 1?2 hours when you are awake. 9. If the spirometer includes a goal marker to show the highest number you have reached (best effort), use this as a goal to work toward during each repetition. 10. After each set of 10 deep breaths, cough a few times. This will help to make sure that your lungs are clear. ??? If you have an incision on your chest or abdomen from surgery, place a pillow or a rolled-up towel firmly against the incision when you cough. This can help to reduce pain while taking deep breaths and coughing. General tips ??? When you are able to get out of bed: ? Walk around often. ? Continue to take deep breaths and cough in order to clear your lungs. ??? Keep using the incentive spirometer until your health care provider says it is okay to stop using it. If you have been in the hospital, you may be told to keep using the spirometer at home. Contact a health care provider if: ??? You are having difficulty using the spirometer. ??? You have trouble using the spirometer as often as instructed. ??? Your pain medicine is not giving enough relief for you to use the spirometer as told. ??? You have a fever. Get help right away if: ??? You develop shortness of breath. ??? You develop a cough with bloody mucus from the lungs. ??? You have fluid or blood coming from an incision site after you cough. Summary ??? An incentive spirometer is a tool that can help you learn to take long, deep breaths to keep your lungs clear and active. ??? You may be asked to use a spirometer after a surgery, if you have a lung problem or a history of smoking, or if you have been inactive for a long period of time. ??? Use your incentive spirometer as instructed every 1?2 hours while you are awake. ??? If you have an incision on your chest or abdomen, place a pillow or a rolled-up towel firmly against your incision when you cough. This will help to reduce pain. ??? Get help right away if you have shortness of breath, you cough up bloody mucus, or blood comes from your incision when you cough. This information is not intended to replace advice given to you by your health care provider. Make sure you discuss any questions you have with your health care provider. Document Revised: 08/14/2020 Document Reviewed: 08/14/2020 [employer] Patient Education ? 2023 [employer] [place], [place] [facility] DISCHARGE INSTRUCTIONS: TOTAL KNEE ARTHROPLASTY INCISION CARE: The bandage may be changed by your home Physical Therapist at 7 days postoperatively and worn an additional 7 days. A new Mepilex bandage should then be placed. The bandage is wate (more content not included)...[facility]01-22-2025 NotePatient Education - Text [place], [place] [facility] DISCHARGE INSTRUCTIONS: TOTAL KNEE ARTHROPLASTY INCISION CARE: The bandage may be changed by your home Physical Therapist at 7 days postoperatively and worn an additional 7 days. A new Mepilex bandage should then be placed. The bandage is waterproof, so you may shower at home. Steri-strips (paper tape strips) may be applied to the incision if any slight wound separation is noted. These should remain in place for five days and then they may come off in the shower. Please notify the office if any increase in redness, tenderness, drainage, fever, or wound separation is noted beyond this point. MEDICATIONS: You may resume your home medications at the time of discharge. Arixtra and Lovenox are mild blood thinners that prevent the development of blood clots in the legs. One of these has been used during your hospitalization. After discharge home you should continue the use of two stomach coated baby Aspirin tablets daily with your largest meal for 30 days after home discharge. Please notify your doctor if you have a stomach sensitivity to Aspirin or history of previous stomach ulcers. Pain medication has been prescribed as well. You may continue to use the pain medication every fourhours as needed. Any narcotic pain medication can cause side effects including stomach upset, constipation, or light-headedness. You should not drive or operate machinery, or drink alcohol while using the narcotic pain medication. You should not use other pain medications with this prescription pain medication unless further directed by your physician. PHYSICAL THERAPY Continue the range of motion and strengthening exercises initiated by Physical Therapy in the hospital. Continue weight bearing, as ordered, to the operated knee as directed in Physical Therapy. This will be with the use of a walker or crutches initially. Physical therapy as begun in the hospital will continue at home, possibly with the child development assistant of Home Health Physical Therapy or in the hospital as an outpatient. When you have become independent withthe physical therapy program, this will then be discontinued as a supervised program and you will be instructed to continue the physical therapy exercises at home. Your exercises are galvez to successful rehabilitation. You should gain full extension first, hopefully before hospital discharge, and gain 90 degrees flexion by one month post-op. Do the exercises daily, twice if preferred. DRIVING: Please do not drive for 4-6 weeks pending therapy progress. 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 It is therefore advised not to drive until after yourfirst office visit following surgery. FOLLOW-UP OFFICE VISIT: Clint Boogie DO [facility] [address] [place] [address] Reviewed: 10-29[facility]01-09[facility] History of Present illness Narrative* Clint Boogie DO - 06/17/2024 2:00 PM EST Images from the original note were not included. @ENCDATE@ Carlypaulo Cesar is a 54 y.o. female who presents for Follow-up of the Right Knee (H&P Rt [facility] 06/30/24) HPI: History of Present Illness The [...] to kneel and squat. Additionally, she mentions exper iencing swelling in the affected area and severe aching at night, which disrupts her sleep. Despitethese challenges, she continues to engage in physical [...] has not been using it recently. She isscheduled for a new sleep study before her [...] Age of Onset Heart disease Mother Laura Monroechristophe Other (bleeding ulcer) Mother Laura Bartonruba Diabetes Mother Laura Bartonruba Hypertension Mother Laura Monroechristophe Stroke Mother Laura Bartonruba Heart attack Father Heart disease Father Muscular dystrophy Brother Suicidality Brother Cancer Maternal Grandmother Stroke Paternal Grandmother Cancer Mother's Sister Hyde SOCIAL HISTORY: Social History Tobacco Use Smoking status: Never Smokeless tobacco: Never Vaping Use Vaping status: Never Used Substance Use Topics Alcohol use: Yes Comment: 1-2 drinks monthly or less, coffee 2-3 cups per day Drug use: Never Depression: Not at risk (06/05/2023) [facility] PHQ-2 Patient Health Questionnaire-2 Score: 0 REVIEW [...] is noted over both the lateral and medialjoint lines. Negative anterior and posterior drawer. No [...] of the knee could cause varying sensitivity levels.Post-surgical pain is expected to improve over time, enhancing her function and quality of life. She was reassured that the majority of patients who undergo this procedure are satisfied with the outcome. The patient would like to proceed with a right total knee arthroplasty with [employer] robotic arm assistance. The [employer] platform will be utilized. Surgery will be [...] dysfunction causing severe impairment of function associated withsevere discomfort to such a degree that relief of symptoms and limitations to function were not amenable to conservative non- surgical measures including rest, activity modification, a home exercise pr ogram, icing, NSAIDs, and injections. These methods failed to provide the patient with meaningful or long lasting relief. Based on subjective and objective evidence of anatomic and functional derangements that have imposed severe limitations on the patient in terms of mobility, comfort, and safety as documented in the chart, joint replacement surgery is both medically necessary and reasonable forthis patient. I reviewed the risk, benefits, complications, [...] note was created using voice recognition through [employer]. documented in this encounterSaint Luke's [facility] Hospital–Barry [id number] Miscellaneous Notes* Telephone Encounter - Margarita Givens RN - 05/12/2024 11:23 AM EST Patient calling to update us that she [...] know if they are consistently greater than 130and we will address with physician. She v/u. Med marked not taking on med list. documented in this encounterLakeHealth TriPoint Medical CenterAura XM [id number] Telephone encounter Note* Telephone Encounter - Margarita Givens RN - 05/12/2024 11:23 AM EST Patient calling to update us that she [...] know if they are consistently greater than 130and we will address with physician. She v/u. Med marked not taking on med list. [facility] [employer] [id number] Evaluation note* Author Charisma Eid [facility] Authored August 03, 2024 9:10am Start weight: 211.7lbs. She is down 49.7 lbs. today with a weight of 162.0 lbs. She is down 12.6 lbs. since last visit on 04/30/2024. Starting Date: 01-02-2023. On Zepbound 1. Abnormal weight gain 2. Obesity-she is doing well on Zepbound 10 mg with minimal controlled side effects. We are going to continue this dose that she will be having right total knee replacement in June. She should continue home exercise as possible as directed by Meaghan, consider water aerobics, continue to work regularly with our marketing finance specialist and continue to work on good sleep hygiene. The patient will treat with long-term lifestyle changes of improved nutrition, increased exercise and activity, stress reduction, adequate sleep and behavioral modification versus short-term dieting. 3. Mixed hyperlipidemia-improved with fenofibrate, rosuvastatin, with healthier eating and increased exercise. She will continue treat with decreasing the simple sweets, added sugars, refined starches, and bad/added fats, increasing activity and exercise and continued long-term weight loss. 4. Ktiuaspimufx-fewc-xbyrduuhdp. She may be able to cut back her dose of the losartan 50/12.5 mg HCTZ. She will continue treat with a low-salt diet, decreased processed and [...] weight loss. Follow up with me in 12 weeks due to her upcoming surgery. New labs needed: Up-to-date. She should continue regular lab work with her PCP. [facility] Work Phone: 1(204) 801-419111-07-2024 History of Present illness Narrative* Clint Boogie, DO - 04/15/2024 9:15 AM EST Images from the original note were not included. @ENCDATE@ Carly Ferdinand Arsenio is a 54 y.o. female who [...] She has seen a provider at [facility] and most recently saw Dr. Mookie Ospina at [facility]. She underwent arthroscopic surgery by Dr. Ospina on 12/05/2023, which included a partial medial meniscectomy with removal of loose bodies. The operative report has been personally reviewed. She has had numerous other conservative treatments for the knee both pre and postoperatively. This includes corticosteroid injections, viscosupplementation, bracing, nonsteroidal anti-inflammatories,and physical therapy. She has received various injections, including Zilretta, gel, and cortisone, both before and after her surgery in 11/2023. However, she reports that her knee pain continues to progress. Her last injection was given on 03/08/2024. She experiences difficulty walking up and down stairs due to pain, particularly when descending. Oncertain days, she can bend her knee without severe pain, but on others, she experiences significantdiscomfort. Her pain is primarily located medially. She does not observe any swelling in her knee. After a recent visit to the [facility] where she walked and rode a bike, [...] Not at risk (06/05/2023) Re[facility] PHQ-2 Patient Health Questionnaire-2 Score: 0 REVIEW [...] maintaining a healthy weight as well as thebenefits of maximizing the strength, stability, and range of motion of the affected joint. Conservative treatments such as injections, bracing, rehabilitation, and medications have not provided significant relief. If the pain continues to impact her quality of life, knee replacement may beconsidered. This decision is ultimately hers to make. Another scope will not provide any benefit. She is advised to maintain low-impact activities such as using an elliptical or bike, and to continuewater exercises. If she decides to proceed with [...] patient encounter which included chart review, check in,nurse triage, history taking, physical examination, diagnostic study review, patient counseling anddiscussion, entering information into the patient's medical record, and coordinating patient care. Clint Boogie D.O. Attestation This note was created using voice recognition through [employer]. documented in this encounterSaint Luke's North Hospital–Barry [id number] Miscellaneous Notes* Telephone Encounter - Caridad Madera RN - 02/19/2024 10:27 AM EDT Pt called, leaving for trip and med not signed. Direct Selling Counselor called [facility], spoke to Xu to call in script. documented in this encounterOhio[facility]-2024 Telephone encounter Note* Telephone Encounter - Caridad Madera RN - 02/19/2024 10:27 AM EDT Pt called, leaving for trip and med not signed. Direct Selling Counselor called [facility], spoke to Xu to call in script. [facility]08-12-2024 Evaluation note* Author Sandra Jules [facility] Authored January 19, 2024 11 :14am Assessment: [...] by Meaghan, start to work with our marketing finance specialist and continue to work on good sleep [...] Continue regular lab work with her PCP. [facility] Work Phone: 1(418) 759-991308-12-2024 Evaluation note* Author Sandra Jules [facility] Authored January 19, 2024 11 :14am Assessment: [...] by Meaghan, start to work with our marketing finance specialist and continue to work on good sleep [...] work with her PCP. Author Charisma Eid [facility] Authored March 12, 2024 10 :39am Start [...] by Meaghan, start to work with our marketing finance specialist and continue to work on good sleep [...] Continue regular lab work with her PCP. [facility] Work Phone: 1(123) 511-352108-06-2024 History of Present illness Narrative* Darron Bond MD - 2024 9:50 AM EDT Chief Complaint: Well-woman gynecology exam SUBJECTIVE HPI Carly Cesar is a 53 y.o. who presents for her annual well-woman exam. Trouble sleeping since end of october. Discussed sleep hygiene and will talk with PCP. Rare hot flashes, feeling better from that perspective. The following portions of the patient's history were reviewed and updated as appropriate: allergies, current medications, past family history, past medical history, past social history, past surgicalhistory and problem list. Review of Systems Pertinent items are noted in HPI. Allergies No Known Allergies ObGyn Hx OB History Para Term AB Living 3 1 SAB IAB Ectopic Multiple Live Births 1 # Outcome Date GA Lbr Billy/2nd Weight Sex Type Anes PTL Lv 3 2008 Vag-Spont 2 SAB 2007 1 1988 Vag-Spont Medical Hx Past Medical History: Diagnosis Date Arthritis Bursitis Chest pain ZUÑIGA (dyspnea on exertion) Fibrolipoma Gain of weight Helicobacter pylori infection Hyperlipidemia Hypertension RLS (restless legs syndrome) Rotator cuff syndrome Tendonitis Tired Visual impairment glasses, contacts Surgical Hx Past Surgical History: Procedure Laterality Date ARTHROSCOPY SHOULDER Right 02/24/2019 Performed by Jr Lozada DO at [facility] CERVICAL BIOPSY W/ LOOP ELECTRODE EXCISION CYSTECTOMY EXTERNAL EAR SURGERY KNEE SURGERY Right RESECTION DISTAL CLAVICLE Right 02/24/2019 Performed by Jr Lozada DO at [facility] Family Hx Family History Problem Relation Age of Onset Heart disease Mother Ulcers Mother Diabetes Mother Hypertension Mother Stroke Mother Heart attack Father Heart disease Father No Known Problems Sister Muscular dystrophy Brother No Known Problems Daughter No Known Problems Son Cancer Maternal Grandmother lung Stroke Paternal Grandmother No Known Problems Sister Suicide Attempts Brother Psychosocial Social History Socioeconomic History Marital status: Tobacco Use Smoking status: Never Smokeless tobacco: Never Vaping Use Vaping status: Never Used Substance and Sexual Activity Alcohol use: Yes Comment: rare Drug use: Never Sexual activity: Yes Partners: Male Other Topics Concern Caffeine Use Yes Social Determinants of Health Food Insecurity: No Food Insecurity (09/26/2023) Hunger Screening Food Insecurity - Worry: Never True Food Insecurity - Inability: Never True Interpersonal Safety: Not At Risk (06/05/2023) [facility] Humiliation, Afraid, Rape, and Kick questionnaire Fear of Current or Ex-Partner: No Emotionally Abused: No Physically Abused: No Sexually Abused: No Current Medications Current Outpatient Medications Medication Sig Dispense Refill buPROPion XL (WELLBUTRIN XL) 150 mg 24 hr tablet Take 1 tablet (150 mg total) by mouth in the morning. cetirizine (ZyrTEC) 10 mg tablet Take 1 tablet (10 mg total) by mouth in the morning. cholecalciferol (VITAMIN D3) 1,000 units tablet Take 2 tablets (2,000 Units total) by mouth in the morning. coenzyme Q10 100 mg capsule Take 1 capsule (100 mg total) by mouth in the morning. 30 capsule 11 fenofibrate micronized (LOFIBRA) 67 mg capsule Take 1 capsule (67 mg total) by mouth every morning before breakfast. 30 capsule 3 FeroSuL 325 mg (65 mg iron) tablet Take 1 tablet (325 mg total) by mouth in the morning. losartan-hydroCHLOROthiazide (HYZAAR) 50-12.5 mg per tablet Take 1 tablet by mouth daily. 90 tablet3 magnesium oxide (MAGOX) 400 mg tablet Take 0.5 tablets (200 mg total) by mouth in the morning. meloxicam (MOBIC) 7.5 mg tablet Take 1 tablet (7.5 mg total) by mouth in the morning. plgvfayu-kbqn-HD-calcium &mins (THERAGRAN-M) 9 mg iron-400 mcg tablet Take 1 tablet by mouth inthe morning. pantoprazole (PROTONIX) 40 mg EC tablet Take 1 tablet (40 mg total) by mouth in the morning. pramipexole (MIRAPEX) 1 mg tablet Take 2 tablets (2 mg total) by mouth in the morning. rosuvastatin (CRESTOR) 20 mg tablet TAKE 1 TABLET IN THE EVENING 90 tablet 3 tirzepatide, weight loss, (ZEPBOUND) 2.5 mg/0.5 mL pen injector Inject 2.5 mg under the skin every 7 days. diclofenac (VOLTAREN) 75 mg EC tablet Take 1 tablet (75 mg total) by mouth daily as needed. (Patient not taking: Reported on 09/26/2023) fluticasone propionate (FLONASE) 50 mcg/actuation nasal spray Administer 1 spray into each nostril in the morning. (Patient not taking: Reported on 2024) No current facility-administered medications for this visit. Allergies No Known Allergies OBJECTIVE Vitals Vitals: 01/13/24 0958 BP: 121/79 Pulse: 86 Weight: 85.3 kg (188 lb) Physical Exam Exam conducted with a co founder and chairman present. Constitutional: Appearance: Normal appearance. HENT: Head: Normocephalic. Nose: Nose normal. Mouth/Throat: Mouth: Mucous membranes are moist. Pharynx: Oropharynx is clear. Eyes: Extraocular Movements: Extraocular movements intact. Pupils: Pupils are equal, round, and reactive to light. Pulmonary: Effort: Pulmonary effort is normal. No respiratory distress. Chest: Breasts: Breasts are symmetrical. Right: Normal. No swelling, mass, nipple discharge, skin change or tenderness. Left: Normal. No mass, nipple discharge, skin change or tenderness. Genitourinary: Comments: Normal external genitalia, normal vaginal mucosa without lesions; cervix appears WNL, physiologic discharge. On bimanual exam, no adnexal masses palpated, nontender, uterus is normal size and mobile Musculoskeletal: General: Normal range of motion. Cervical back: Normal range of motion. Lymphadenopathy: Upper Body: Right upper body: No supraclavicular or axillary adenopathy. Left upper body: No supraclavicular or axillary adenopathy. Skin: General: Skin is warm and dry. Neurological: General: No focal deficit present. Mental Status: She is alert and oriented to person, place, and time. Psychiatric: Mood and Affect: Mood normal. Behavior: Behavior normal. ASSESSMENT & PLAN Carly Cesar is a 53 y.o. who presents for her annual gynecology exam. Routine screening - Last mammogram: ordered - Last pap: 2021 Darron Bond MD documented in this encounterOhio[facility]07-23-2024 Miscellaneous Notes* Telephone Encounter - Gemma Elizabeth RN - 12/30/2023 9:50 AM EDT Deisy Simmons MD 12/29/2023 6:38 PM EDT Reviewed. Recommend starting fenofibrate 67 mg daily. Continue with low carb diet, exercise and weight loss. Goal triglycerides less than 150 will plan to recheck lipids in 3 months. Thank you documented in this encounterOhioHealth Grant [facility] Center07-23-2024 Telephone encounter Note* Telephone Encounter - Gemma Elizabeth RN - 12/30/2023 9:50 AM EDT Deisy Simmons MD 12/29/2023 6:38 PM EDT Reviewed. Recommend starting fenofibrate 67 mg daily. Continue with low carb diet, exercise and weight loss. Goal triglycerides less than 150 will plan to recheck lipids in 3 months. Thank you [facility]07-23-2024 Miscellaneous Notes* Telephone Encounter - Margarita Givens RN - 12/30/2023 9:39 AM EDT Images from the original note were not included. Deisy Simmons MD 12/29/2023 6:38 PM EDT Back to Top Reviewed. Recommend starting fenofibrate 67 mg daily. Continue with low carb diet, exercise and weight loss. Goal triglycerides less than 150 will plan to recheck lipids in 3 months. Thank you Caridad Madera RN 12/29/2023 6:56 AM EDT MS, lipids ordered 09/26/23 - 1. Hx of SOB -> Negative exercise echo stress 08/2021 2. Normal EF on echo 08/2021 3. Hypertension 4. Dyslipidemia - 09/2023: Total cholesterol 139, HDL 41, LDL 60, triglycerides 192 5. Fibromyalgia 6. Obesity, BMI 37 Here for routine follow-up. Doing well and stable from a cardiac standpoint. Recommended starting fenofibrate. Patient would like to hold off for now and continue with aggressive lifestyle modification. Counseled on following a low carb heart healthy diet, exercise and weightloss. Will plan to repeat lipid function test in 3 months, goal triglycerides less than 150, if persistently elevated will consider starting low-dose fenofibrate. documented in this encounterOhioHealth [facility] Center07-23-2024 Telephone encounter Note* Telephone Encounter - Margarita Givens RN - 12/30/2023 9:39 AM EDT Images from the original note were not included. Deisy Simmons MD 12/29/2023 6:38 PM EDT Back to Top Reviewed. Recommend starting fenofibrate 67 mg daily. Continue with low carb diet, exercise and weight loss. Goal triglycerides less than 150 will plan to recheck lipids in 3 months. Thank you Caridad Madera RN 12/29/2023 6:56 AM EDT MS, lipids ordered 09/26/23 - 1. Hx of SOB -> Negative exercise echo stress 08/2021 2. Normal EF on echo 08/2021 3. Hypertension 4. Dyslipidemia - 09/2023: Total cholesterol 139, HDL 41, LDL 60, triglycerides 192 5. Fibromyalgia 6. Obesity, BMI 37 Here for routine follow-up. Doing well and stable from a cardiac standpoint. Recommended starting fenofibrate. Patient would like to hold off for now and continue with aggressive lifestyle modification. Counseled on following a low carb heart healthy diet, exercise and weightloss. Will plan to repeat lipid function test in 3 months, goal triglycerides less than 150, if persistently elevated will consider starting low-dose fenofibrate. [facility]07-[facility] Miscellaneous Notes* Telephone Encounter - Kay Maria LPN - 12/15/2023 3:47 AM EDT Edgar 09/26/23 Lipid 09/23/23 documented in this encounterOhioHealth Grant Medical Center07-08-2024 Telephone encounter Note* Telephone Encounter - Kay Maria LPN - 12/15/2023 3:47 AM EDT Edgar 09/26/23 Lipid 09/23/23 [facility]06-17-[facility] Evaluation note* Author Sandra Jules [facility] Authored January 19, 2024 11 :14am Assessment: [...] by Meaghan, start to work with our marketing finance specialist and continue to work on good sleep [...] Continue regular lab work with her PCP. [facility] Work Phone: [phone]) 695-147104-19-2024 History of Present illness Narrative* Deisy Simmons MD - 09/26/2023 8:15 AM EDT Carly Cesar Date of visit: 09/26/2023 Date of : 1970 Age: 53 y.o. Patient Active Problem List Diagnosis Hot flashes due to menopause Sleep apnea Menopause Obesity (BMI 30-39.9) Family history of heart disease Shortness of breath Essential hypertension Primary hypertension Dyslipidemia No Known Allergies Current Outpatient Medications Medication Sig Dispense Refill buPROPion XL (WELLBUTRIN XL) 150 mg 24 hr tablet Take 1 tablet (150 mg total) by mouth in the morning. cetirizine (ZyrTEC) 10 mg tablet Take 1 tablet (10 mg total) by mouth in the morning. cholecalciferol (VITAMIN D3) 1,000 units tablet Take 2 tablets (2,000 Units total) by mouth in the morning. coenzyme Q10 100 mg capsule Take 1 capsule (100 mg total) by mouth in the morning. 30 capsule 11 FeroSuL 325 mg (65 mg iron) tablet Take 1 tablet (325 mg total) by mouth in the morning. fluticasone propionate (FLONASE) 50 mcg/actuation nasal spray Administer 1 spray into each nostril in the morning. losartan-hydroCHLOROthiazide (HYZAAR) 50-12.5 mg per tablet Take 1 tablet by mouth daily. 90 tablet3 magnesium oxide (MAGOX) 400 mg tablet Take 0.5 tablets (200 mg total) by mouth in the morning. meloxicam (MOBIC) 7.5 mg tablet Take 1 tablet (7.5 mg total) by mouth in the morning. epfettfg-mxkt-GO-calcium &mins (THERAGRAN-M) 9 mg iron-400 mcg tablet Take 1 tablet by mouth inthe morning. pantoprazole (PROTONIX) 40 mg EC tablet Take 1 tablet (40 mg total) by mouth in the morning. pramipexole (MIRAPEX) 1 mg tablet Take 2 tablets (2 mg total) by mouth in the morning. rosuvastatin (CRESTOR) 20 mg tablet TAKE 1 TABLET IN THE EVENING 90 tablet 0 tirzepatide, weight loss, (ZEPBOUND) 2.5 mg/0.5 mL pen injector Inject 2.5 mg under the skin every 7 days. diclofenac (VOLTAREN) 75 mg EC tablet Take 1 tablet (75 mg total) by mouth daily as needed. (Patient not taking: Reported on 09/26/2023) No current facility-administered medications for this visit. Chief Complaint Patient presents with Follow-up EST PT F/U 1 YR LABS IN October W/ PT History of Present Illness Patient with history of hypertension, dyslipidemia, fibromyalgia, obesity. Was seen back in 2021. At the time complaining of shortness of breath. Had a negative stress echo. Here for routine follow-up. Overall doing well with no active complaints. No chest pain or shortness of breath. No palpitations or dizziness. No orthopnea or edema. Vitals stable. Started on Zepbound Started losing weight. Brought a stationary walking pad and plans to start exercising regularly, work on controlling diet and weight loss. Past Medical History: Diagnosis Date Arthritis Bursitis Chest pain ZUÑIGA (dyspnea on exertion) Fibrolipoma Gain of weight Helicobacter pylori infection Hyperlipidemia Hypertension RLS (restless legs syndrome) Rotator cuff syndrome Tendonitis Tired Visual impairment glasses, contacts No data recorded No data recorded No data recorded Past Surgical History: Procedure Laterality Date ARTHROSCOPY SHOULDER Right 02/24/2019 Performed by Jr Lozada DO at [facility] CERVICAL BIOPSY W/ LOOP ELECTRODE EXCISION CYSTECTOMY EXTERNAL EAR SURGERY RESECTION DISTAL CLAVICLE Right 02/24/2019 Performed by Jr Lozada DO at [facility] Family History Problem Relation Age of Onset Heart disease Mother Ulcers Mother Diabetes Mother Hypertension Mother Stroke Mother Heart attack Father Heart disease Father No Known Problems Sister Muscular dystrophy Brother No Known Problems Daughter No Known Problems Son Cancer Maternal Grandmother lung Stroke Paternal Grandmother No Known Problems Sister Suicide Attempts Brother Social History Socioeconomic History Marital status: Spouse name: Not on file Number of children: Not on file Years of education: Not on file Highest education level: Not on file Occupational History Not on file Tobacco Use Smoking status: Never Smokeless tobacco: Never Vaping Use Vaping status: Never Used Substance and Sexual Activity Alcohol use: Yes Comment: rare Drug use: Never Sexual activity: Defer Partners: Male Other Topics Concern Caffeine Use Yes Social History Narrative Not on file Social Determinants of Health Financial Resource Strain: Not on file Food Insecurity: No Food Insecurity (09/26/2023) Hunger Screening Food Insecurity - Worry: Never True Food Insecurity - Inability: Never True Transportation Needs: Not on file Physical Activity: Not on file Stress: Not on file Social Connections: Not on file Interpersonal Safety: Not At Risk (06/05/2023) [facility] Humiliation, Afraid, Rape, and Kick questionnaire Fear of Current or Ex-Partner: No Emotionally Abused: No Physically Abused: No Sexually Abused: No Housing Instability: Not on file Review of Systems Review of Systems Respiratory: Negative for cough, hemoptysis and wheezing. Musculoskeletal: Positive for arthritis. Gastrointestinal: Negative for abdominal pain, change in bowel habit and hematochezia. Genitourinary: Negative for dysuria and hematuria. Neurological: Negative for focal weakness, headaches and paresthesias. CARDIOVASCULAR: Please review HPI. Physical Examination General appearance: Alert, oriented and cooperative. In no acute distress. Skin: Warm and dry to touch. Head: Normocephalic, without obvious abnormality, atraumatic. Ears, Nose, Mouth, Throat: Throat clear without erythema or exudate. Dentition intact. Eyes: Conjunctivae unremarkable, EOM intact. Neck: No JVD, No carotid bruit. Neck supple, trachea midline. Respiratory: Clear to auscultation bilaterally, no use of accessory muscles. Cardiovascular: RRR with normal S1 and S2 with no murmurs. Gastrointestinal: Soft, non-tender. Bowel sounds normal. Musculoskeletal: No peripheral edema. Neurologic: Oriented to time, person and place, affect appropriate. No focal/major motor defects noted. Psychiatric: Appropriate mood, memory and judgement. VITAL SIGNS: BP 118/88 (BP Site: Left Arm, BP Postition: Sitting) Pulse 90 Ht 157.5 cm (5' 2 ) Wt 92.4 kg (203 lb 12.8 oz) SpO2 98% BMI 37.28 kg/m Orders Placed or Reconciled This Encounter Medications fluticasone propionate (FLONASE) 50 mcg/actuation nasal spray Sig: Administer 1 spray into each nostril in the morning. tirzepatide, weight loss, (ZEPBOUND) 2.5 mg/0.5 mL pen injector Sig: Inject 2.5 mg under the skin every 7 days. meloxicam (MOBIC) 7.5 mg tablet Sig: Take 1 tablet (7.5 mg total) by mouth in the morning. There are no discontinued medications. IMPRESSIONS/PLAN 1. Primary hypertension - POCT EKG 2. Dyslipidemia - Lipid profile; Future Previous cardiac related labs and test results were reviewed and discussed with the patient. Hx of SOB -> Negative exercise echo stress 08/2021 Normal EF on echo 08/2021 Hypertension Dyslipidemia - 09/2023: Total cholesterol 139, HDL 41, LDL 60, triglycerides 192 Fibromyalgia Obesity, BMI 37 Here for routine follow-up. Doing well and stable from a cardiac standpoint. Recommended starting fenofibrate. Patient would like to hold off for now and continue with aggressive lifestyle modification. Counseled on following a low carb heart healthy diet, exercise and weightloss. Will plan to repeat lipid function test in 3 months, goal triglycerides less than 150, if persistently elevated will consider starting low-dose fenofibrate. No change in his medications today. Follow-up in 1 year or sooner if needed. Patient to call us with any cardiac questions or concerns. TODAYS ORDERS Orders Placed This Encounter Procedures Lipid profile POCT EKG FOLLOW UP Return in about 1 year (around 09/25/2024). PCP: CRISTIAN MUÑOZ MD Referring Physician: Cristian Muñoz MD [address] [place] [address] documented in this encounterLakeHealth TriPoint Medical CenterZebra [facility]04-18-2024 Miscellaneous Notes* Telephone Encounter - Britany Bell CMA - 09/25/2023 3:59 PM EDT Called patient to remind them to bring their most current copy of their medication list with them to their appt. Patient verbalizes understanding. documented in this encounterProMediZebra Biologics04-18-2024 Telephone encounter Note* Telephone Encounter - Britany Bell CMA - 09/25/2023 3:59 PM EDT Called patient to remind them to bring their most current copy of their medication list with them to their appt. Patient verbalizes understanding. [facility] [employer] [id number] Miscellaneous Notes* Telephone Encounter - Delfina Fuentes PharmD - 09/23/2023 3:30 PM EDT ----- Message from Caridad Madera RN sent at 09/23/2023 2:55 PM EDT ----- [place] labs ordered 05/05/23 * Telephone Encounter - Delfina Fuentes PharmD - 09/23/2023 3:30 PM EDT 53 yr old non smoker with HTN, hyperlipidemia, fibromyalgia, and a family h/o heart disease in mom had two mi's and stents in 50 and 60s, father of mi, and sister had mi at age 52. Currently taking rosuvastatin 20mg daily. Wt 96.6kg; BMI 38.96 ASCVD risk 1.9% 09/23/23: chol 139, Tg 192, HDL 41, LDL 60 04/07/23: chol 148, Tg 206, HDL 42, LDL 65, Cr 0.91, Glu 98 11/19/22: HbA1c 5.6 02/13/22: Tg 164, HDL 62, LDL 97 (while on gemfibrozil) 05/17/22: TSH and T4 free normal Negative exercise echo stress 08/2021 Risk enhancing factors include: family h/o heart disease, metabolic syndrome (high Tg, HTN, waist circumference) Pt on statin which has lowered the LDL about 50% and current LDL is < 70. Tg are under 500 and no CAD or diabetes so vascepa is not indicated per guidelines. Pt is overweight which can also result in high tgs. Contacted pt and reviewed lipids. She is taking and tolerating the rosuvastatin 20mg/day. Pt just started zepbound on August 18, 2023 for wt loss and has lost wt with it. She is exercising about 30 min/day. Discussed diet changes to lower the Tgs. Pt agreeable. Will recheck lipids in 6 mths. Pt has appt with MS on 09/25. documented in this encounterOhioHealth [facility]04-16-2024 Telephone encounter Note* Telephone Encounter - Delfina Fuentes PharmD - 09/23/2023 3:30 PM EDT ----- Message from Caridad Madera RN sent at 09/23/2023 2:55 PM EDT ----- Rica labs ordered 05/05/23 [facility] [id number] Telephone encounter Note* Telephone Encounter - Delfina Fuentes PharmD - 09/23/2023 3:30 PM EDT 53 yr old non smoker with HTN, hyperlipidemia, fibromyalgia, and a family h/o heart disease in mom had two mi's and stents in 50 and 60s, father of mi, and sister had mi at age 52. Currently taking rosuvastatin 20mg daily. Wt 96.6kg; BMI 38.96 ASCVD risk 1.9% 09/23/23: chol 139, Tg 192, HDL 41, LDL 60 04/07/23: chol 148, Tg 206, HDL 42, LDL 65, Cr 0.91, Glu 98 11/19/22: HbA1c 5.6 02/13/22: Tg 164, HDL 62, LDL 97 (while on gemfibrozil) 05/17/22: TSH and T4 free normal Negative exercise echo stress 08/2021 Risk enhancing factors include: family h/o heart disease, metabolic syndrome (high Tg, HTN, waist circumference) Pt on statin which has lowered the LDL about 50% and current LDL is < 70. Tg are under 500 and no CAD or diabetes so vascepa is not indicated per guidelines. Pt is overweight which can also result in high tgs. Contacted pt and reviewed lipids. She is taking and tolerating the rosuvastatin 20mg/day. Pt just started zepbound on August 18, 2023 for wt loss and has lost wt with it. She is exercising about 30 min/day. Discussed diet changes to lower the Tgs. Pt agreeable. Will recheck lipids in 6 mths. Pt has appt with MS on 09/25. [facility]04-08-2024 Miscellaneous Notes* Telephone Encounter - Shirley Flores RN - 09/15/2023 3:34 AM EDT Please sign and route if you agree. Thank you EDGAR 06/06/22 - Next appt 09/26/23 (MUST keep this appt for further refills; last 3 cancelled) ABN Lipids 04/07/23 documented in this encounterLakeHealth TriPoint Medical CenterZebra [facility]04-08-2024 Telephone encounter Note* Telephone Encounter - Shirley Flores RN - 09/15/2023 3:34 AM EDT Please sign and route if you agree. Thank you EDGAR 06/06/22 - Next appt 09/26/23 (MUST keep this appt for further refills; last 3 cancelled) ABN Lipids 04/07/23 [facility] [id number] Miscellaneous Notes* Telephone Encounter - Pallavi Dewitt - 08/01/2023 3:12 PM EST Called patient to remind them to bring their most current copy of their medication list with them to their appt. Patient verbalizes understanding. documented in this encounterLakeHealth TriPoint Medical CenterZebra [facility]02-23-2024 Telephone encounter Note* Telephone Encounter - Pallavi Dewitt - 08/01/2023 3:12 PM EST Called patient to remind them to bring their most current copy of their medication list with them to their appt. Patient verbalizes understanding. Ceon02-05-2024 History of Present illness Narrative* Fiona Winn NP - 07/14/2023 8:30 AM ESTAssociated Order(s): L Inj/Asp: R subacromial bursa Post-Procedure Diagnose(s): Impingement of right shoulder Subjective Patient ID: Carly Cesar is a 53 y.o. female. Rt shoulder She is working at [employer], she started this in 2023. Pain x [...] weeks s/p injection documented in this encounterSaint Luke's North Hospital–Barry [id number] NoteIcGrand Lake Joint [facility]01-09-2024 Miscellaneous Notes* Telephone Encounter - Shirley Flores RN - 06/17/2023 2:17 AM EST Please sign and route. Thank you Pt needs annual appointment please. Letter sent. EDGAR 06/06/22 ABN Lipids 04/07/23 documented in this encounterOhioHealth [facility]01-09-2024 Telephone encounter Note* Telephone Encounter - Shirley Flores RN - 06/17/2023 2:17 AM EST Please sign and route. Thank you Pt needs annual appointment please. Letter sent. EDGAR 06/06/22 ABN Lipids 04/07/23 [facility]12-28-2023 Note06/05/23 Injection was helpful, pain has returned [...] Zilretta injection Mobic Follow up once injection approved.[facility]12-13-[facility] Evaluation note* Encounter Date Diagnosis Assessment Notes [...] After informed discussion, patient would like to proceedOrders:-Insu nce requires 6 months of lifestyle weight management prior to medication approval, corresponding to date of 07-05-2023 -Patient trialed phentermine several years ago but experienced tachycardia. Patient is not a great candidate for phentermine or Qsymia -Handed paperwork on Zepbound-A1c November 2022, 5.6%-Follow up in clinic in 8 weeksThis note was created with voice recognition software. Please excuse errors in straight line edger. May, Dietary surveillance and counseling (ICD-10 - [...] with the patient, and documenting clinical information. [employer] Other 10-11-2023 Evaluation note* Encounter Date Diagnosis [...] voice recognition software. Please excuse errors in straight line edger. Mar, Dietary surveillance and counseling (ICD-10 - [...] with the patient, and documenting clinical information. [employer] Other 09-22-2023 NotePatient ID: Carly Cesar is [...] to verify the correct patient, procedure, equipment, data support analyst and site/side marked as required. Patient was prepped and draped in the usual sterile fashion.[facility]08-30-2023 Evaluation note* Encounter Date Diagnosis Assessment Notes Treatment Notes Treatment Clinical Notes Jan, Obesity, unspecified classification, unspecified obesity type, unspecified whether serious comorbidity present (ICD-10 - E66.9) Jan, Other Summary of Visi t: (A) group discussion about breakfast challenges and ideas (B) participants shared idea for breakfast and addressing common challenges Patient set the following goals: NOT REVIEWED [employer] Other 08-28-2023 Evaluation note* Encounter Date Diagnosis [...] voice recognition software. Please excuse errors in straight line edger. Jan, Dietary surveillance and counseling (ICD-10 - [...] with the patient, and documenting clinical information. [employer] Other 08-25-2023 Note01/31/23 Here today in follow [...] the patient. Obtain approval for right knee Abhijeetkalebjaneen [facility]* Encounter Date Diagnosis Assessment Notes [...] patient set personal goal using given handout. [employer] Other 07-27-2023 Evaluation note* Encounter Date Diagnosis [...] voice recognition software. Please excuse errors in straight line edger. Dec, Dietary surveillance and counseling (ICD-10 - [...] GERD (gastroesophageal reflux disease) (ICD-10 - K21.9) [employer] Other 01-12-2023 NotePROCEDURE: XR KNEE RT 4V or > HISTORY: Osteoarthritis ; right knee pain COMPARISON: XR knee right 02/12/2022 FINDINGS: BONES:No fracture, acute abnormality, or significant arthropathy. SOFT TISSUES:No visible soft tissue swelling. EFFUSION:None visible. OTHER: Negative. IMPRESSION: 1. No acute bone abnormality or significant degenerative changes. Electronically authenticated by: BETH ROACH Date: 2022-06-20 08:14[facility]09-06-2022 NotePROCEDURE: XR KNEE RT 4V or > COMPARISON: None. HISTORY: Osteoarthritis FINDINGS: BONES:No fracture, acute abnormality, or significant arthropathy. SOFT TISSUES:Negative. No visible soft tissue swelling. EFFUSION:None visible. OTHER: Negative. IMPRESSION: No acute disease. Electronically authenticated by: JADA PRIETO Date: 2022-02-12 19:52[facility]07-09-2022 Evaluation note* Encounter Date Diagnosis Assessment [...] was printed, Toe sprain material was printed [employer] Other 03-04-2022 Evaluation note* Encounter Date Diagnosis [...] to only the absolute essential needed assessments. [employer] Other Chiwk complaint+Reason for visit Narrative* Chief Complaint Exercise Reason for Visit Dietary surveillance and counseling Exercise counseling Obesity, Class II, BMI 35-39.9 Dietary surveillance and counseling Exercise counseling Obesity, Class II, BMI 35-39.9 [facility] Work Phone: evaluation + Plan note Future Appointments Appointment Date:06/30/2024 09:30:00 AM Scheduled Provider: Location:[facility] Appointment Type:Surgery FT Diagnostic Tests Pending * Urine Culture 06/17/24 [facility] Eveheimann noteNo InformationNort [employer] Other Evalusckhz noteNo assessment information available [facility] Work Phone: evaluation note* Diagnosis Right shoulder pain, unspecified chronicity- Primary Impingement of right shoulder [facility] Diagnosis Onset Date Resolution Status Dietary surveillance and counseling acute Exercise counseling acute Obesity, Class II, BMI 35-39.9 acute Dietary surveillance and counseling acute Exercise counseling acute Obesity, Class II, BMI 35-39.9 acute [facility] Work Phone: evaluation note* Diagnosis Onset Date Resolution Status Dietary surveillance and counseling acute Exercise counseling acute Obesity, Class II, BMI 35-39.9 acute Dietary surveillance and counseling acute Exercise counseling acute Obesity, Class II, BMI 35-39.9 acute Acute cystitis with hematuria noneactive [facility] Work Phone: evaluation note* Diagnosis Onset Date Resolution Status Dietary surveillance and counseling acute Exercise counseling acute Obesity, Class II, BMI 35-39.9 acute Acute cystitis with hematuria noneactive [facility] Work Phone: evaluation note* Diagnosis Onset Date Resolution Status Dietary surveillance and counseling acute Exercise counseling acute Obesity, Class II, BMI 35-39.9 acute Acute cystitis with hematuria noneactive Dietary surveillance and counseling acute Exercise counseling acute Obesity, Class II, BMI 35-39.9 acute [facility] Work Phone: evaluation note* Diagnosis Onset Date Resolution Status Dietary surveillance and counseling acute Exercise counseling acute Obesity, Class II, BMI 35-39.9 acute Acute cystitis with hematuria noneactive Dietary surveillance and counseling acute Exercise counseling acute Obesity, Class II, BMI 35-39.9 acute Osteoarthritis of right knee acute Right knee meniscal tear acu te [facility] Work Phone: Evaluation note* Diagnosis Onset Date Resolution Status Dietary [...] Status post arthroscopy of right knee acute [facility] Work Phone: Evaluation note* Diagnosis Onset [...] Status post arthroscopy of right knee acute [facility] Work Phone: Evaluation note* Diagnosis Right knee pain, unspecified chronicity- Primary Primary osteoarthritis of right knee [facility] Diagnosis Pre-op testing Unspecified pre-operative examination [facility] Diagnosis Primary osteoarthritis of right knee- Primary [facility] Diagnosis Primary osteoarthritis of right knee- Primary Difficulty walking Difficulty in walking Acute postoperative pain of right knee Status post right knee replacement [facility] Diagnosis Primary osteoarthritis of right knee- Primary Difficulty walking Difficulty in walking Acute postoperative pain of right knee Status post right knee replacement [facility] Diagnosis S/P total knee arthroplasty, right- Primary [facility]* Diagnosis Primary hypertension- Primary Unspecified essential hypertension Dyslipidemia Other and unspecified hyperlipidemia [facility] Diagnosis Dyslipidemia- Primary Other and unspecified hyperlipidemia [facility] Diagnosis High triglycerides- Primary Unspecified disorder of lipoid metabolism Other hyperlipidemia Medication monitoring encounter Encounter for therapeutic drug monitoring [facility] Well woman exam with routine gynecological exam- Primary Routine gynecological examination Screening mammogram, encounter for [facility] Diagnosis Other hyperlipidemia- Primary [facility] Diagnosis Other hyperlipidemia High triglycerides Unspecified disorder of lipoid metabolism [facility] Diagnosis S/P total knee arthroplasty, right- Primary [facility]* Diagnosis Family history of heart disease- Primary Primary hypertension Unspecified essential hypertension Dyslipidemia Other and unspecified hyperlipidemia Overweight (BMI 25.0-29.9) Overweight [facility] Diagnosis Other hyperlipidemia High triglycerides Unspecified disorder of lipoid metabolism [facility] Diagnosis S/P total knee arthroplasty, right- Primary [facility] N[facility]ative - Reported* Type Description Date Medical History Hypercholesteremia Medical History Anxiety and depression Surgical History LEEP Surgical History ear reattached and d ent removal on side of face from injury Surgical History right shoulder bone spur Hospitalization History No Hospitalization histo ry information [employer] Other Hisgktg general Narrative - Reported* Type Description Date Medical History Hypercholesteremia Medical History Anxiety and depression Surgical History LEEP Surgical History ear reattached and d ent removal on side of face from injury Surgical History right shoulder bone spur Hospitalization History see above [employer] Other Hisgxjj general Narrative - Reported* Type Description Date Medical History Hypercholesteremia Medical History Anxiety and depression Medical History Hypertension Surgical History LEEP Surgical History ear reattached and d ent removal on side of face from injury Surgical History right shoulder bone spur Surgical History [place] teeth extraction Hospitalization History see above [employer] Other Hospital course Narrative No data available for this section [facility] Discharge instructions No data available for this section [facility] InstructionsNot on filedocumented in this encounter [...] on filedocumented in this encounter [facility] No data available for this section [facility] [place] for referral (narrative)No reason for referral information [facility] Work Phone: Reason for visit Narrative* Consultation (Routine) - Closed Specialty Diagnoses / Procedures Referred By Contac t Referred To Contact Physical Therapy Diagnoses Primary osteoarthritis of right knee Procedures OR OFFICE/OUTPATIENT NEW HIGH MDM 60 MINUTES Clint Boogie, DO [address] [place] [address] Phone: tel: fax: Jada Cunha PT Referral ID Status Reason Start Date Expiration Date V isits Requested Visits Authorized [id number] Closed Specialty Services Required 06/24/2024 12/14/2024 99 99 [facility] Summary Purpose Family History Relationship Condition Age at Onset Recorded Date/T [...] Unknown brother Muscular dystrophy Unknown Advance Directives Documents on File Type Date Recorded 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 Advance Directives and Living Will Power of Stripper Latex Advance Directive Response Recorded Date/ Time Advance Directives No October 11, 2019 6:12am Advance Directive Response Recorded Date/ Time Advance Directives No September 04 1:28pm Advance Directive Response Recorded Date/ Time Advance Directives No September 04 12:28pm Assessments Diagnosis Screening mammogram, encounter for Well [...] post arthroscopy of right knee Chief Complaint Admit Date 12 week October 26, 2024 8:26a m WM initial November 22, 2024 8:09 am Z13.9 E78.2 I10 November 25, 2024 9:38 am E78.2, I10, E78.00 November 25, 2024 9:[address] WM f/u December 30, 2024 7:51 am Reason for Visit Admit Date Hypertension October 26, 2024 8:26a m Mixed hyperlipidemia October 26, 2024 8:26 am Osteoarthritis of right knee October 26 8:26am Overweight (BMI 25.0-29.9) October 26 8:26am Chief Complaint Admit Date 12 week October 26, 2024 8:26a m WM initial November 22, 2024 8:09 am Z13.9 E78.2 I10 November 25, 2024 9:38 am E78.2, I10, E78.00 November 25, 2024 9:[address] WM f/u December 30, 2024 7:51 am 3 month January 18, 2025 8: 21am Reason for Referral Specialty Diagnoses / Procedures Referred By Aubrey st Referred To Contact Orthopaedic Surgery Diagnoses Impingement of right shoulder Procedures L Inj/Asp: R subacromial bursa Fiona Winn NP [address] [facility] [address] [place] [address] Referral ID Status Reason Start Date Expiration Date V isits Requested Visits Authorized [id number] Pending Review 07/14/2023 01/10/2024 1 1 Additional Source Comments INFORMATION SOURCE (unrecogn ized section and content) DATE CREATED AUTHOR 07/28/2019 Sonya [facility] DATE CREATED AUTHOR AUTHOR'S ORGANIZ ATION 10/03/2022 [facility] DATE CREATED AUTHOR AUTHOR'S ORGANIZ ATION 10/29/2023 [facility] DATE CREATED AUTHOR AUTHOR'S ORGANIZ ATION 01/15/[address] [facility] DATE CREATED AUTHOR AUTHOR'S ORGANIZ ATION 06/22/2024 [facility] DATE CREATED AUTHOR AUTHOR'S ORGANIZ ATION 07/01/2024 [facility] DATE CREATED AUTHOR AUTHOR'S ORGANIZ ATION 07/06/2024 [facility] DATE CREATED AUTHOR AUTHOR'S ORGANIZ ATION 09/27/2024 [facility] DATE CREATED AUTHOR AUTHOR'S ORGANIZ ATION 12/20/2024 [facility] DATE CREATED AUTHOR AUTHOR'S ORGANIZ ATION 12/28/2024 [facility] EPIC REASON FOR VISIT (unrecogniz ed section and content) Reason Comments Pain Reason Comments Pain Reason Comments Follow-up H&P Rt [facility] 06/30 Reason Onset Date Comments DISREGARD 07/13/2024 Reason Comments Post-op Visit R [facility] 06/30/24 Reason Comments Follow-up EST PT F/U 1 YR LABS IN October W/ PT Reason Comments Med Refill Reason Onset Date Comments Results 12/30/2023 Reason Comments Gynecologic Exam Reason Onset Date Comments Med Refill 02/19/2024 Reason Onset Date Comments wt loss, dizzy, bp med hold 05/12/2024 Reason Comments Follow-up 1 year Hypertension Shortness of Breath Care Teams (unrecognized sec tion and content) Team Status: Active Member Role Status Dates Cristian Muñoz MD Family Provider Active Cristian Muñoz MD Primary Care Provider Active Team Status: Inactive Member Role Status Yarelis Muñoz MD Primary Care Provider, Family Provi jacinto Active Sandra Jules MD Attending Provider Active Team Status: Active Member Role Status Dates Cristian Muñoz MD Primary [facility], [facility] Active Mitchel Baeza DO Attending Provider Active Electrical Assembly Technician Relationship Specialty Start Date End Date Cristian Muñoz MD [address] [place] [address] PCP - General 07/13/23 Electrical Assembly Technician Relationship Specialty Start Date End Date Cristian Muñoz MD [address] [place] [address] PCP - General 07/13/23 Team Status: Inactive Member Role Status Dates [...] Team Status: Inactive Member Role Status Yarelis Ospina DO Attending Provider Active St art: [...] 2024 Team Status: Inactive Member Role Status Dates Cristian Muñoz MD Primary Care Provider Active Start: March 12, 2024 End: March 12, 2024 Sandra Jules MD Attending Provider Active Start: March 12, 2024 End: March 12, 2024 Electrical Assembly Technician Relationship Specialty Start Date End Date Cristian Muñoz MD [address] [place] [facility] [place] [address] PCP - General 07/13/23 Electrical Assembly Technician Relationship Specialty Start Date End Date Cristian Muñoz MD [address] [place] [facility] [place] [address] PCP - General 07/13/23 Electrical Assembly Technician Relationship Specialty Start Date End Date Cristian Muñoz MD [address] [place] [facility] [place] [address] PCP - General 07/13/23 Electrical Assembly Technician Relationship Specialty Start Date End Date Cristian Muñoz MD [address] [place] [facility] [place] [address] PCP - General 07/13/23 Electrical Assembly Technician Relationship Specialty Start Date End Date Cristian Muñoz MD [address] [facility], [id number] PCP - General 07/13/23 Electrical Assembly Technician Relationship Specialty Start Date End Date Cristian Muñoz MD [address] [place] [facility] [place] [address] PCP - General 07/13/23 Electrical Assembly Technician Relationship Specialty Start Date End Date Cristian Muñoz MD [address] [place] [address] PCP - General Family Medicine 02/18/19 Electrical Assembly Technician Relationship Specialty Start Date End Date Cristian Muñoz MD [address] [place] [address] PCP - General Family Medicine 02/18/19 Electrical Assembly Technician Relationship Specialty Start Date End Date Cristian Muñoz MD [address] [place] [address] PCP - General Family Medicine 02/18/19 Electrical Assembly Technician Relationship Specialty Start Date End Date Cristian Muñoz MD [address] [place] [address] PCP - General Family Medicine 02/18/19 Electrical Assembly Technician Relationship Specialty Start Date End Date Cristian Muñoz MD [address] [place] [address] PCP - General Family Medicine 02/18/19 Electrical Assembly Technician Relationship Specialty Start Date End Date Cristian Muñoz MD [address] [place] [address] PCP - General Family Medicine 02/18/19 Electrical Assembly Technician Relationship Specialty Start Date End Date Cristian Muñoz MD PCP - General Family Medicine 02/18/19 Electrical Assembly Technician Relationship Specialty Start Date End Date Cristian Muñoz MD PCP - General Family Medicine 02/18/19 Team Status: Inactive Member Role Status Dates Cristian Muñoz MD Primary Care Provider Active Start: August 03, 2024 End: August 03, 2024 Sandra Jules MD Attending Provider Active Start: August 03, 2024 End: August 03, 2024 Electrical Assembly Technician Relationship Specialty Start Date End Date Cristian Muñoz MD [address] [place] [address] PCP - General 07/13/23 Electrical Assembly Technician Relationship Specialty Start Date End Date Cristian Muñoz MD PCP - General Family Medicine 02/18/19 Electrical Assembly Technician Relationship Specialty Start Date End Date Cristian Muñoz MD PCP - General Family Medicine 02/18/19 Electrical Assembly Technician Relationship Specialty Start Date End Date Cristian Muñoz MD PCP - General 07/13/23 Team Status: Active Member Role Status Dates Cristian Muñoz MD Primary Care Provider Active Team Status: Inactive Member Role Status Dates Cristian Muñoz MD Primary Care Provider Active Start: October 26, 2024 End: October 26, 2024 Sandra Jules MD Attending Provider Active Start: October 26, 2024 End: October 26, 2024 Team Status: Inactive Member Role Status Dates Cristian Muñoz MD Primary Care Provider Active Start: November 22, 2024 End: November 22, 2024 CECELIA Maldonado Attending Provider Active S tart: November 22, 2024 End: November 22, 2024 Team Status: Inactive Member Role Status Dates Cristian Muñoz MD Primary Care Provider Active Start: November 25, 2024 End: November 25, 2024 Sandra Jules MD Attending Provider Active Start: November 25, 2024 End: November 25, 2024 Team Status: Inactive Member Role Status Dates Cristian Muñoz MD Primary Care Provider Active Start: December 30, 2024 End: December 30, 2024 CECELIA Maldonado Attending Provider Active S tart: December 30, 2024 End: December 30, 2024 Electrical Assembly Technician Relationship Specialty Start Date End Date Cristian Muñoz MD PCP - General Family Medicine 02/18/19 Team Status: Inactive Member Role Status Dates Cristian Muñoz MD Primary Care Provider Active Start: January 18, 2025 End: January 18, 2025 Sandra Jules MD Attending Provider Active Start: January 18, 2025 End: January 18, 2025 Goals (unrecognized section and content) Goals may [...] BE BASED ON THE PRIMARY CLINICAL RECORDS. [facility] [employer] [facility]. provides no warranty or guarantee of the accuracy or completeness of information in this document.
== END 2025-01-18 09:43 | disposition home or self-care (01) ==
LOC: LAB 09:42
PROVIDERS: PCP Family Medicine; Visit Provider Family Medicine
DX: Z00.00 Encounter for general adult medical examination without abnormal findings (principal)
CPT/HCPCS: G0328

== ENCOUNTER 2025-04-22 11:07 | Outpatient (OUT) | payer OTHER, SELFPAY ==
--- OUTSIDE RECORDS SUMMARY | 2024-06-10 06:15 | XMS_ITS ---
Author Organization [facility] in [place] Address [address] [place] [address] Care Team Providers Care Die Trouble Shooter Name Role Phone Juan F Sal Primary Care Provider REASON FOR VISIT fall hurt tail bone Encounters Encounter Location Date Provider Diagnosis [facility] [address] [place] [address] 06/10/2024 Juan F Sal Plan Of Treatment No Information Progress Notes * Angela CESAR EDOB:[birth year] (55 yo F)Acc No.[id number]:06/10/2024 UNLOCKED PROGRESS NOTE Progress Note Patient: Angela HANSEN :?Alexis Sal (TTC), MDDOB:1970???Age: 54 Y???Sex:FemaleDate:06/10/2024Phone:[phone]:[address] [place], [id number] Subjective: * Chief Complaints: * 1 . Fall hurt tail bone. * Medical History: Objective: * Vitals: Assessment: Plan: * Treatment: * * Electronic signature of Juan F Sal MD, [id number] on 04/22/2025 at 11:13 AM EST Sign off status: PendingVisit Status:?CANC (Cancelled) * Provider: Leydi Sal MD (TTC) Date: 0 06/10/2024 Generated for Printing/Faxing/eTransmitting on:?04/22/2025 11:13 AM EST
--- OUTSIDE RECORDS SUMMARY | 2025-04-08 13:30 | XMS_ITS | Encounter Summary ---
Author Organization [facility] Address [address] [place] [address] Care Team Providers Care Punch Card Operator Name Role Phone Alexis Sal MD Primary Care Provider [phone] Reason for Visit * Consultation (Routine) - AuthorizedSpecialtyDiagnoses / ProceduresReferred By ContactReferred To ContactPhysical Therapy Diagnoses Iliotibial band syndrome of right side Procedures [place] OFFICE/OUTPATIENT [facility] 60 MINUTES Clint Anand, DO [address] [facility] [place] [address] Phone: tel: fax: Jada Cunha PT Referral IDStatusReasonStart DateExpiration DateVisits RequestedVisits [id number] Consult and Treat 59999 Encounter Details DateTypeDepartmentCare Team (Latest Contact Info)Uuzdiqsenvf94/31/2025 2:30 PM EDTTreatment [facility] [address] [place] [phone] Nicholas Farrell PTA Iliotibial band syndrome of right side (Primary Dx) Social History Tobacco UseTypesPacks/DayYears UsedDateSmoking Tobacco: NeverSmokeless Tobacco: NeverAlcohol UseStandard Drinks/WeekCommentsYes0 (1 standard drink = 0.6 oz pure alcohol)1-2 drinks monthly or less, coffee 2-3 cups per dayComments UnknownSex and Gender InformationValueDate RecordedSex Assigned at BirthFemale 07/13/2023 8:41 AM ESTLegal EedOfenge81/15/2023 6:45 PM EDTGender IdentityFemale 07/13/2023 8:41 AM ESTSexual OrientationNot on filedocumented as of this encounter Progress Notes * Nicholas Farrell, PULP MILL TEAM LEADER - 04/08/2025 2:30 PM EDT Images from the original note were not included. Physical Therapy Treatment Visit Patient Name: Codi Cesar Today's Date: 04/08/2025 Encounter Diagnoses Name Primary? Iliotibial band syndrome of right side Yes Visit number: 4 Timed Code Treatment: 45 minutes Total Treatment Time: 55 minutes Time In: 1410 Time Out: 1505 History: Pt states she underwent surgery for right TKA earlier this year. Since then she feels likeIT band has been aggravating. Will having significant pain during the night when laying on right side. Sharp pain will go from hip to lateral calf. States she has also been getting pain in the back of her HS. Pt states she has also been having sciatic pain. Precautions: Right TKA Subjective: right lateral thigh achy still. Reports improved sleeping past couple days. Pain: 2/10 Objective: PT Evaluation (03/23/2025) LUMBAR SPINE AROM: full flexion without increase pain, right low back pain with repeated standing extension, increase pain right low back at end range right SB, no pain at end range left SB Strength: 4/5 right hip ER Palpation: min tenderness right IT band, min tenderness right buttock Special Test: negative slump and SLR Neurological: Reflexes: 2 bilateral patellar Myotomes: intact Dermatomes: intact Special Test: negative clonus Treatment: Manual Therapy: (15 minutes ) Pt side lying STM/TPR to piriformis and TFL to improve functional mobility. Therapeutic Exercise: (30 minutes supervised) Guided pt through ther and flex ex per grid to improve core, lumbar, LE functional mobility, strength and stability Therapeutic Activity: Exercises to improve dynamic activities, functional tasks, functional mobility to return to prior activity level as needed. Neuromuscular re-education: Balance Training, Muscle Facilitation, Dynamic Stability, Core Stabilization, and Blood Flow Restriction Training (BFRT) as needed. Modalities: (10 minutes ) Post session pt L side lying pillow between knees MHP to lateral knee andthigh to reduce inflammation and muscle soreness Assessment: Visit #3 pt with complaints of chronic right lateral hip pain and right low back pain. Increased tone at piriformis and glute region noted during STM. Continued hip strengthening ex with no increased pain, refer to PRE sheet for progressions. HEP was updated to include exercises from this session. Ended session with [facility] Outcome Measure: Lower Extremity Functional Scale (LEFS): 60/80 Rehab Diagnosis: right hip and thigh pain, low back pain, decrease hip strength and mobility Short Term Goal: To be met in 2 weeks Goal 1: Pt to be instructed in home exercise program. Senior Living Goals: To be met in 10 weeks Goal 1: Pt to report independence and compliance with home program. Goal 2: Pt to have full trunk ROM without complaints of increase pain at end ranges to assist with functional tasks. Goal 3: Pt to report pain no greater than 3/10 with function tasks, ADL's, and work related activities. Goal 4: Pt to achieve 4+/5 strength right hip to assist in functional mobility. Goal 5: Pt to score no less than 70/50 on LEFS indicating improved QOL. Pt will benefit from skilled PT for 1-2x/week from 03/23/2025 to 06/21/2025 to address the above impairments. I hereby deem this POC medically necessary. Please sign below. Date: Cosigned by Jada Cunha PT at 04/13/2025 8:43 AM EST documented in this encounter Plan of Treatment DateTypeDepartmentCare Team (Latest Contact Info)Lizrmkfizqf41/22/2026 9:00 AM ESTOffice Visit [facility] [place] [phone] Clint Anand DO [address] [place] [address] documented as of this encounter Visit Diagnoses Diagnosis Iliotibial band syndrome of right side- Primary documented in this encounter Care Teams Team MemberRelationshipSpecialtyStart DateEnd Date Alexis Sal MD PCP - General07/13/23documented as of this encounter
--- OUTSIDE RECORDS SUMMARY | 2025-04-11 08:30 | XMS_ITS | Encounter Summary ---
Author Organization [facility] Address [address] [place] [place] [address] Care Team Providers Care Payment Processor Name Role Phone Alexis Sal MD Primary Care Provider [phone] Reason for Visit * Consultation (Routine) - AuthorizedSpecialtyDiagnoses / ProceduresReferred By ContactReferred To ContactPhysical Therapy Diagnoses Iliotibial band syndrome of right side Procedures [place] OFFICE/OUTPATIENT [facility] 60 MINUTES Clint Anand, DO [address] [facility] [place] [address] Phone: tel: fax: Jada Cunha PT Referral IDStatusReasonStart DateExpiration DateVisits RequestedVisits [id number] Consult and Treat 59999 Encounter Details DateTypeDepartmentCare Team (Latest Contact Info)Hicayalfzci94/03/2025 8:30 AM ESTTreatment [facility] [address] [place] [phone] Sunshine Lazo PTA Iliotibial band syndrome of right side (Primary Dx) Social History Tobacco UseTypesPacks/DayYears UsedDateSmoking Tobacco: NeverSmokeless Tobacco: NeverAlcohol UseStandard Drinks/WeekCommentsYes0 (1 standard drink = 0.6 oz pure alcohol)1-2 drinks monthly or less, coffee 2-3 cups per dayComments UnknownSex and Gender InformationValueDate RecordedSex Assigned at BirthFemale 07/13/2023 8:41 AM ESTLegal AmkTgpnxm27/15/2023 6:45 PM EDTGender IdentityFemale 07/13/2023 8:41 AM ESTSexual OrientationNot on filedocumented as of this encounter Progress Notes * Sunshine Lazo, FLUE LINING DIPPER - 04/11/2025 8:30 AM EST Images from the original note were not included. Physical Therapy Treatment Visit Patient Name: Codi Cesar Today's Date: 04/11/2025 Encounter Diagnoses Name Primary? Iliotibial band syndrome of right side Yes Visit number: 5 Timed Code Treatment: 41 minutes Total Treatment Time: 51 minutes Time In: 8:30 AM Time Out: 9:21 AM History: Pt states she underwent surgery for [...] having sciatic pain. Precautions: Right TKA Subjective: reports hip is feeling well My knee just doesn't feel right, going down steps just isn't the same Pain: denies Objective: PT Evaluation (03/23/2025) LUMBAR SPINE AROM: [...] TFL to improve functional mobility. Therapeutic Exercise: (26 minutes supervised) Guided pt through ther and [...] reduce inflammation and muscle soreness Assessment: Visit # 5 pt with complaints of chronic right lateral hip pain and right low back pain.Reports improvement in pain and mobility, compliant with performing HEP, using massage gun. Mild increased tone at piriformis and glute region noted during STM. Continued hip strengthening ex with noincreased pain, refer to PRE sheet for progressions. Ended session with [facility] Outcome Measure: Lower Extremity Functional Scale (LEFS): 60/80 Rehab Diagnosis: right hip and thigh pain, low back pain, decrease hip strength and mobility Short Term Goal: To be met in 2 weeks Goal 1: Pt to be instructed in home exercise program. Retirement Goals: To be met in 10 weeks [...] Plan of Treatment DateTypeDepartmentCare Team (Latest Contact Info)Ejxjsbljcwn39/22/2026 9:00 AM ESTOffice Visit [facility] [address] [phone] Clint Anand DO [address] [place] [address] documented as of this encounter Visit Diagnoses Diagnosis Iliotibial band syndrome of right side- Primary documented in this encounter Care Teams Team MemberRelationshipSpecialtyStart DateEnd Date Alexis Sal MD PCP - General07/13/23documented as of this encounter
--- OUTSIDE RECORDS SUMMARY | 2025-04-13 09:00 | XMS_ITS | Encounter Summary ---
Author Organization [facility] Address [address] [place] [address] Care Team Providers Care Apparatus Operator Name Role Phone Alexis Sal MD Primary Care Provider [phone] Reason for Visit * Consultation (Routine) - AuthorizedSpecialtyDiagnoses / ProceduresReferred By ContactReferred To ContactPhysical Therapy Diagnoses Iliotibial band syndrome of right side Procedures [place] OFFICE/OUTPATIENT [facility] 60 MINUTES Clint Anand, DO [address] [facility] [place] [address] Phone: tel: fax: Jada Cunha PT Referral IDStatusReasonStart DateExpiration DateVisits RequestedVisits [id number] Consult and Treat 59999 Encounter Details DateTypeDepartmentCare Team (Latest Contact Info)Jkfffdzkhxr58/05/2025 9:00 AM ESTTreatment [facility] [address] [place] [phone] Nicholas Farrell PTA Iliotibial band syndrome of right side (Primary Dx) Social History Tobacco UseTypesPacks/DayYears UsedDateSmoking Tobacco: NeverSmokeless Tobacco: NeverAlcohol UseStandard Drinks/WeekCommentsYes0 (1 standard drink = 0.6 oz pure alcohol)1-2 drinks monthly or less, coffee 2-3 cups per dayComments UnknownSex and Gender InformationValueDate RecordedSex Assigned at BirthFemale 07/13/2023 8:41 AM ESTLegal NrvVfyshx41/15/2023 6:45 PM EDTGender IdentityFemale 07/13/2023 8:41 AM ESTSexual OrientationNot on filedocumented as of this encounter Progress Notes * Nicholas Farrell, ELECTRONIC REPAIR TROUBLESHOOTER - 04/13/2025 9:00 AM EST Images from the original note were not included. Physical Therapy Treatment Visit Patient Name: Codi Cesar Today's Date: 04/13/2025 Encounter Diagnoses Name Primary? Iliotibial band syndrome of right side Yes Visit number: 6 Timed Code Treatment: 40 minutes Total Treatment Time: 50 minutes Time In: 0850 Time Out: 0940 History: Pt states she underwent surgery for [...] TFL to improve functional mobility. Therapeutic Exercise: (25 minutes supervised) Guided pt through ther and [...] inflammation and muscle soreness Assessment: Visit # 6 pt with complaints of chronic right lateral hip pain and right low back pain.Reports improvement in pain and mobility. Mild tone at piriformis and glute region noted during STM, and limited quad length. Continued hip strengthening ex with no increased pain, refer to PRE sheetfor progressions. Ended session with [facility] Outcome Measure: Lower Extremity Functional Scale (LEFS): 60/80 Rehab Diagnosis: right hip and thigh pain, low back pain, decrease hip strength and mobility Short Term Goal: To be met in 2 weeks Goal 1: Pt to be instructed in home exercise program. Senior Vice President Goals: To be met in 10 weeks [...] Cosigned by Jada Cunha PT at 04/13/2025 2:29 PM EST documented in this encounter Plan of Treatment DateTypeDepartmentCare Team (Latest Contact Info)Zqvwvxmrscl55/22/2026 9:00 AM ESTOffice Visit [facility] [address] [place] [phone] Clint Anand DO [address] [facility] [address] documented as of this encounter Visit Diagnoses Diagnosis Iliotibial band syndrome of right side- Primary documented in this encounter Care Teams Team MemberRelationshipSpecialtyStart DateEnd Date Alexis Sal MD PCP - General07/13/23documented as of this encounter
--- OUTSIDE RECORDS SUMMARY | 2025-04-18 08:00 | XMS_ITS | Encounter Summary ---
Author Organization [facility] Address [address] [place] [address] Care Team Providers Care Master Chef Name Role Phone Alexis Sal MD Primary Care Provider [phone] Reason for Visit * Consultation (Routine) - AuthorizedSpecialtyDiagnoses / ProceduresReferred By ContactReferred To ContactPhysical Therapy Diagnoses Iliotibial band syndrome of right side Procedures [place] OFFICE/OUTPATIENT [facility] 60 MINUTES Clint Anand, DO [address] [facility] [place] [address] Phone: tel: fax: Jada Cunha PT Referral IDStatusReasonStart DateExpiration DateVisits RequestedVisits [id number] Consult and Treat 59999 Encounter Details DateTypeDepartmentCare Team (Latest Contact Info)Lajswywsrle12/10/2025 8:00 AM ESTTreatment [facility] [address] [place] [phone] Nicholas Farrell PTA Iliotibial band syndrome of right side (Primary Dx) Social History Tobacco UseTypesPacks/DayYears UsedDateSmoking Tobacco: NeverSmokeless Tobacco: NeverAlcohol UseStandard Drinks/WeekCommentsYes0 (1 standard drink = 0.6 oz pure alcohol)1-2 drinks monthly or less, coffee 2-3 cups per dayComments UnknownSex and Gender InformationValueDate RecordedSex Assigned at BirthFemale 07/13/2023 8:41 AM ESTLegal KxwXuwpng61/15/2023 6:45 PM EDTGender IdentityFemale 07/13/2023 8:41 AM ESTSexual OrientationNot on filedocumented as of this encounter Progress Notes * Nicholas Bud, CLINICAL IMMUNOLOGIST - 04/18/2025 8:00 AM EST Images from the original note were not included. Physical Therapy Treatment Visit Patient Name: Codi Cesar Today's Date: 04/18/2025 Encounter Diagnoses Name Primary? Iliotibial band syndrome of right side Yes Visit number: 7 Timed Code Treatment: 45 minutes Total Treatment Time: 45 minutes Time In: 0800 Time Out: 0845 History: Pt states she underwent surgery for [...] Right TKA Subjective: reports hip is feeling well. C/C is lateral knee pain along distal IT band. Pain: denies Objective: PT Evaluation (03/23/2025) LUMBAR [...] Pt side lying STM/TPR to piriformis and TFL, vastus lateralis, and distal IT band to improve functional mobility. Therapeutic Exercise: (30 [...] Flow Restriction Training (BFRT) as needed. Modalities: (0 minutes ) Post session pt L side lying pillow between knees MHP to lateral knee and thigh to reduce inflammation and muscle soreness Assessment: Visit # 7 pt with complaints of chronic right lateral [...] to be instructed in home exercise program. Salesperson Hosiery Goals: To be met in 10 weeks [...] Date: Cosigned by Jada Cunha PT at 04/18/2025 10:32 AM EST documented in this encounter Plan of Treatment DateTypeDepartmentCare Team (Latest Contact Info)Gzhpculvxnr71/22/2026 9:00 AM ESTOffice Visit [facility] [address] [place] [phone] Clint Anand DO [address] [facility] [place] [address] documented as of this encounter Visit Diagnoses Diagnosis Iliotibial band syndrome of right side- Primary documented in this encounter Care Teams Team MemberRelationshipSpecialtyStart DateEnd Date Alexis Sal MD PCP - General07/13/23documented as of this encounter
--- OUTSIDE RECORDS SUMMARY | 2025-04-19 04:57 | XMS_ITS | Continuity of Care Document ---
Author Organization [facility] Address [address] [place] [address] Phone Care Team Providers Care Lock And Dam Equipment Repairer Name Role Phone Alexis Sal MD Primary Care Provider [phone] Attending Provider Unavailable Lemuel Jules MD Attending Provider [phone] Care Teams Patient Care Team Team Status: Active Member Role/Relationship Status Dates Alexis Sal MD Primary Care Provider Active Visit Care Team Team Status: Inactive Member Role/Relationship Status Yarelis Sal MD Primary Care Provider Active Start: February 04, 2025 End: February 04ndalice Claudio RD LDAttending ProviderActiveStart: February 04, 2025 End: February 04, 2025 Visit Care Team Team Status: Inactive Member Role/Relationship Status Yarelis Sal MD Primary Care Provider Active Start: April 18, 2025 End: April 18ndalice Claudio RD LDAttending ProviderActiveStart: April 18, 2025 End: April 18, 2025 Patient Care Team Team Status: Inactive Member Role/Relationship Status Yarelis Sal MD Primary Care Provider Active Start: April 19, 2025 End: April 19, 2025Lemuel Jules MDAttdann ProviderActiveStart: April 19, 2025 End: April 19, 2025 Chief Complaint and Reason for Visit Chief Complaint Admit Date CECELIA SAVAGE f/u February 04, 2025 9: 30am RD WM f/u April 18, 2025 10:47am Allergies, Adverse Reactions, Alerts Allergen Type Severity Reaction Last Updated Verified Status Seasonal allergies Allergy Unknown Sneezing Februa 2023 8:23am No Active Social History Smoking Status Status Start Date End Date Date of Observa tion Never smoked tobacco (finding) December 05, 2023 7:10am Observation Status Observation Response Date of Response Legal Sex Female (finding) Sex Assigned At [facility] 1969 Family History Relationship Condition Age at Onset Recorded Date/T diogo brother Unknown Family history of mental disorderUnknownfatherHeart diseaseUnknownDeceased UnknownmotherDiabetes mellitusUnknownHeart diseaseUnknownDeceasedUnknown HypertensionUnknownsisterHeart diseaseUnknownFamily history of mental disorder UnknownHistory of strokeUnknownbrotherMuscular dystrophyUnknownDeceasedUnknown Problems Active Problems Problem Diagnosis/Recorded Date Onset Date Stat Exercise counseling July 31, 2023 8:05am Unknown Active MCL sprain of left knee February 05, 2024 12:28pm Unkn own Active Overweight (BMI 25.0-29.9) August 03, 2024 4:31pm Unknown Active Dietary surveillance and counseling July 31 8:05am Unknown Active Dyslipidemia July 30, 2023 3:58pm Unknown A ctive Hypercholesteremia July 30, 2023 3:58pm Unknown Active Mixed hyperlipidemia January 19, 2024 10:11am Unknown Active Obesity (BMI 30.0-34.9) January 19, 2024 10:11am Unkn own Active Obesity, Class II, BMI 35-39.9 July 30, 2023 3:5 8pm Unknown Active Osteoarthritis July 30, 2023 3:58pm Unknown Active Metabolic syndrome July 30, 2023 3:58pm Unknown Active Encounter for removal of sutures December 18, 2023 9:08a m Unknown Active Anxiety and depression July 30, 2023 3:58pm Unkn own Active Right knee pain November 25, 2023 6:10am Unknown Ac tive Status post arthroscopy of right knee December 04, 2023 5:56am Unknown Active Osteoarthritis of right knee Nataly 18th, 2024 9:52am Un known Active GERD (gastroesophageal reflux disease) July 30, 2023 3:58pm Unknown Active Right knee meniscal tear November 25, 2023 9:52am Unknow n Active Hypertension July 30, 2023 3:58pm Unknown A ctive Medications Medication Status Dose Units Route Directions Qty Days Refills S tart Date Stop Date End Date Reason(s) Instructions Adherence Tirzepatide (Weight Loss) (Zepbound) 2.5 mg/0.5 mL pen injector Discontinued 2.5 MG SUBCUT every week 2 2 8 0 September 22, 2023 2:32pm September 29, 2023 7:46amTirzepatide (Weight Loss) (Zepbound) 2.5 mg/0.5 mL pen injectorDiscontinued2.5MGSUBCUTevery izap2390Jpd2023 1:24pmJune 2023 6:24amClass 2 obesity Dyslipidemia Obesity, unspecified Hyperlipidemia, unspecifiedHydrocodone-Acetaminophen 5-325 mg tabletDiscontinued 2WTLKKE9E as needed for Ufci3529Fqvj 2023September 2023 6:37amStatus post arthroscopy of right knee Other specified postprocedural statesDO NOT RECONCILE UNTIL DOS 12/05/23 TO BE USED POST OPAspirin 81 mg tablet,grucjgsfPofbtmzzoakw82UAXTQqnfy hdswu7267 0June 2023 11:00pmAugust 2023 9:54amDO NOT RECONCILE UNTIL DOS 12/05/23 TO BE USED POST OPAcetaminophen 325 mg lcoqrxPsdlgh217SUGBV5P as needed for Pain 300June 2023 11:00pmDO NOT RECONCILE UNTIL DOS 12/05/23 TO BE USED POST OPComplies with drug therapyMeloxicam 15 mg dfrtytJqdtqvzzmzzg30 XTUMwajiu21069Movh 2023 11:00pmAugust 2023 9:57amDO NOT RECONCILE UNTIL DOS 12/05/23 TO BE USED POST OPTirzepatide (Weight Loss) 10 mg/0.5 mL pen injector Zmuqyrosjoeb18NQWQMYZRstiem iifo71Bveqluwgv2023 3:35pmOctober 2023 9:48amweight lossTirzepatide (Weight Loss) 10 mg/0.5 mL pen injectorDiscontinued 10MGSUBCUTevery pjeb31Qnllgami2023 9:22amDecember 2023 12:48pmweight lossTirzepatide (Weight Loss) 10 mg/0.5 mL pen uuwdoxirXiuclldehajm72NFRGQJSR every irit85Obsrmeab2023 12:48pmFebruary 2024 9:17amweight losseye promise ssvjajzUwlvju4NFUBCMntum morningNovember 30, 2023 11:00pmComplies with drug therapyPramipexole (Mirapex Er) 2.25 mg tablet extended release 24 hr Discontinued2.25MGPOEvery eveningNovember 30, 2023 11:00pmAugust 2023 9:56am restless legTirzepatide (Weight Loss) 7.5 mg/0.5 mL pen injectorDiscontinued7.5 MGSUBCUTevery weekJun2023 11:00pmAugust 2023 10:14amweight loss takes on MondaysTirzepatide (Weight Loss) 5 mg/0.5 mL pen injectorDiscontinued5 MGSUBCUTevery lpbq9230Tjshb 2023 7:35amMay 2023 1:26pmMeloxicam 15 mg jltkowErihjtjxzomq63GSZKekjwx as neededJanuary 19, 2024 9:55amOctober 2023 9:30amDO NOT RECONCILE UNTIL DOS 12/05/23 TO BE USED POST OPTirzepatide (Weight Loss) 7.5 mg/0.5 mL pen injector Discontinued7.5MGSUBCUTevery lunh23Pskkit2023 10:14amSeptember 2023 3:36pmweight lossFenofibrate Micronized 67 mg uqszgfsAlugax58RNCIHmsbyfuyx 2023 11:00pmComplies with drug therapyNaproxen 500 mg rtqtiwDjclqbomjwrr346MESW Twice bqzfy59551Wnxholosv 2023 11:00pmAugust 2024 7:39amTirzepatide (Weight Loss) 10 mg/0.5 mL pen hdzmylssOvhblofypstb84CJOKLUDRmyknt weekApril 30, 2024 10:26amDecember 2023 9:22amweight lossTirzepatide (Weight Loss) 10 mg/0.5 mL pen dcbgbczuRzdjlngfdoum88MTVFFSAEufihc htrv10Ibr2024 8:01amAugust 2024 7:55amweight lossCelecoxib 100 mg capsule Dkefocudzhnv346QJBYSpugd dailyAutohatchi health care centert 2024 11:00pmNovember 2024 9:36amNaproxen 500 mg bqmwqdBurptc892WYZYDefag daily as neededAu2024 7:37amComplies with drug therapyPregabalin 75 mg svgexwiOjurzl66MCZSDwagvFszxcq 11th, 2025 11:00pmComplies with drug therapyTirzepatide (Weight Loss) 10 mg/0.5 mL pen hlrarscgBppsveecznww88MNBEZPRJylglr wgjy05Xtebpj2024 7:55am April 19, 2025 9:47amweight lossCetirizine 10 mg htajslZqilogcqvwwu14BBBW DailyFebruary 2023 12:00amFebruary 2023 8:25amCoenzyme Q10 (Ultra Coq10) 75 mg hjceipfQlzplqjemvpo15RRAMNqcdhMbwymrul 2023 12:00amJune 2023 9:39amRosuvastatin 20 mg gmnscgZjbhtx00OQHMFteiz at bedtimeFebruary 2023 12:00am(CRESTOR)Complies with drug therapyLosartan-Hydrochlorothiazide 50- 12.5 mg tmahcmNkmefmanwcoy3TXIRYHmuoc eveningFebruary 2023 12:00amMa2024 7:38am(HYZAAR)Ferrous Sulfate 325 mg (65 mg iron) aoihmfRswjbf254OPIH Every morningFebruary 2023 12:00amComplies with drug therapyMultivitamin anzcurDcqfxc9WMSMACdamc morningFebruary 2023 12:00amComplies with drug therapyPantoprazole (Protonix) 40 mg tablet,delayed release (DR/EC)Rpjxay79GJBN Every morningFebruary 2023 12:00amComplies with drug therapy Cholecalciferol (Vitamin D3) 50 mcg (2,000 unit) zkuxjfoNuyutt87NHMBSTiimy morningFebruary 2023 12:00amComplies with drug therapyPramipexole 1 mg kctnmvEpqtdsulcuyi9HEPPUrjlwOhcomuvd 2023 12:00amFebruary 2023 8:25am(MIRAPEX)Bupropion Hcl 150 mg tablet extended release 24 hrDiscontinuedMG POFebruary 2023 12:00amFebruary 2023 8:25amBupropion Hcl 150 mg tablet extended release 24 hrDiscontinuedMGPODailyFebruary 2023 8:23amJune 2023 9:42amCetirizine 10 mg uldglyKidkli44XJWIYiwne at bedtimeFebruary 2023 8:23amallergy symptomsComplies with drug therapyPramipexole 1 mg bzbwadEjeqcj2DYHJPnqcm eveningFebruary 2023 8:24am(MIRAPEX)Complies with drug therapyCephalexin 500 mg fmkozaCpwvivgqtcko9391XWTTMauuh 12 hoursFebruary 2023 12:00amApril 2023 7:20amMeloxicam 15 mg malliuCunlsmxvsutt29ZC PODailyFebruary 2023 12:00amJune 2023 6:40amTirzepatide (Weight Loss) (Zepbound) 2.5 mg/0.5 mL pen injectorDiscontinued2.5MGSUBCUTevery oeiv2282 July 31, 2023 12:00amMarch 2023 1:37pmTirzepatide (Weight Loss) (Zepbound) 2.5 mg/0.5 mL pen injectorDiscontinued2.5MGSUBCUTevery pmgv8873Likre 2023 1:37pmApril 2023 2:32pmBupropion Hcl 150 mg tablet extended release 24 wfMscoth750BGSZTtbrxTqpv 2023 9:38amComplies with drug therapy Tirzepatide (Weight Loss) (Zepbound) 5 mg/0.5 mL pen jiyojsvbYnbwqyjfdnrk3QO SUBCUTevery weekJune 2023 11:00pmJune 2023 6:28amTirzepatide (Weight Loss) (Zepbound) 5 mg/0.5 mL pen pbddsdfsIgnnlskxhjqu1GHOWNSXQnotvh pesu42Gvuc2023 6:27amJune 2023 10:15dcAgd91 (Ubiquinol) (Qunol Bruno Coq10) 100 mg cuwqlonZwsble032PEGPGpimz eveningJune 2023 11:00pmComplies with drug therapyIndomethacin 50 mg jgnzngxEwybcongacsn82HKLRQzkrk times dailyJune 2023 11:00pmAugust 2023 9:55ammagnesium jaulyvkvdRffrpwzmrdcy1CIBXHFsunv eveningJune 2023 11:00pmNovember 2023 8:21amTirzepatide (Weight Loss) 7.5 mg/0.5 mL pen injectorDiscontinued7.5MGSUBCUTevery ycsn88Aqeh 2023 10:04amJune 2023 6:51amNitrofurantoin Monohyd/M-Cryst (Macrobid) 100 mg nehewswWpgccbxzunye067SRCCWvkxr 12 ybjfb2128Pxf 2023 11:00pmJune 2023 9:40ammust administer with a meal/foodNaproxen 500 mg poheulPijtpnybqwmo106 MGPOTwice dailyOctober 2023 11:00pmOctober 2023 9:32amTirzepatide (Weight Loss) 10 mg/0.5 mL pen izifqzutEwnyudummjdf28HGLCKAYVbaera ecds23Lqfpguf2023 9:47amNovember 2023 10:26amweight lossAspirin 81 mg tablet,delayed release (DR/EC)Glhyhiowprkd72LQLGDkvqi dailyFebruary 2024 12:00amMay 2024 7:38amCelecoxib (Celebrex) 200 mg wjubiwxCfweqlgqevav068LQ PODailyFebruary 2024 12:00amAugust 2024 7:39amTirzepatide (Weight Loss) 10 mg/0.5 mL pen fdnnqkumQoikhlhyolfe19OXVACKWYqxlgt lsew11Bmpdyjbn2024 9:17amMay 2024 8:01amweight lossTirzepatide (Weight Loss) 10 mg/0.5 mL pen idnwkimoBjlfzc61XHINGYABvcjhb 2024 9:47amweight loss Complies with drug therapy Immunizations Immunization Event Date Not Given Reason Dose Number Cherry Cutter Lot Number Reason(s) Given Vaccine Information Statement (VIS) Detail Administration Location COVID-19 mRNA Comirmoshe (Pfizer) November 07, 2020 COVID-19 mRNA Comirnattiffany (Pfizer)November 28, 2020 Vital Signs Vital Reading Result Reference Range Collection Date/Time Height 61.5 [in_i] February 04, 2025 8:82twBogsaj99.50 kgAutohatchi health care centert 2024 8:50amBMI (Body Mass Index)28.8 kg/q6Xizift 2024 8:41hfAtxaya70.65 [in_i]April 18, 2025 10:78skWvtohg67.15 kgNov2024 10:52amBMI (Body Mass Index)29.8 kg/m2 April 18, 2025 10:94cwLqpwbj49.65 [in_i]April 19, 2025 9:23amWeight 73.80 kgNovember 2024 9:23amHeart Rate75 /rfh60-540UuiakacqApril 19, 2025 9:23amRespiratory rate18 /rui16-29CehcydqrApril 19, 2025 9:23amOxygen saturation by Pulse yoskphao76 %95-100April 19, 2025 9:23amBP Kkrmqtgh024 mm[Hg]100-140 April 19, 2025 9:23amBP Nyyyzjhat02 mm[Hg]60-100April 19, 2025 9:23am BMI (Body Mass Index)30.1 kg/u5Zdzbdgrj2024 9:23am Advance Directives Advance Directive Response Recorded Date/ Time Advance Directives No September 04 12:28pm Insurance Providers Guarantor Angela Cesar Address [address] [facility] [address]Dvritxk Info.Home Phone: Payer Group Member ID Coverage Type Subscriber Relationship to Subscriber Effective Date Expiration Date [facility] [employer] [id number] Sanchez , JR Id: [id number] [address] [place] [address] Home Phone: Email: [email or web address] Encounter Location(s) Arrival/Admit Date Discharge/Departure Date Discharge/Departure Disposition Provider(s) Departed Physician/ Provider Office Visit -[facility] February 04, 2025 9:30am February 04, 2025 11:59pm Discharged to home care or self care (routine discharge) Yousuf Shanon Departed Physician/ Provider Office Visit -[facility] April 18, 2025 10:47am April 18, 2025 11:32am Discharged to home care or self care (routine discharge) Yousuf Shanon Departed Physician/ Provider Office Visit -[facility] April 19, 2025 8:47am April 19, 2025 9:49am Discharged to home care or self care (routine discharge) Lemuel Jules MD Assessments Author Charisma Eid [facility] 2024 9:44amStart weight: 211.7lbs. She is down 49.0 lbs. today with a weight of 162.7 lbs. She is up 6.2lbs. since last visit on 01/18/2025. Starting Date: 01-02-2023. On Zepbound 1. Abnormal weight gain 2. Obesity-marked improvement with a greater than 25% weight loss with taking Zepbound 10 mg without current side effects. We are going to continue this dose, but she can increase the dose if needed if it causes no increased GI side effects. She is recovering from right total knee replacement in June, but still gets some knee pain. She is walking, biking and now doing nautless strength training at the [facility]. Over time, hopefully she can increase exercise both cardio and strength training. She should continue to work regularly with our roller varnisher and have her bioimpedance monitored and she should continue to work on good sleep hygiene. She understands the benefits of eating healthy [employer] and getting regular exercise to help lower her CAD and stroke risk with known increased LP(a) at 330.She should continue to treat with long- term lifestyle changes of improved nutrition, increased exercise and activity, stress reduction, adequate sleep and behavioral modification versus short-term dieting. 3. Mixed hyperlipidemia-improved with fenofibrate, rosuvastatin 20 mg, with healthier eating and increased exercise. Her most recent LDL was 51 calculated but she does have elevated LP(a) at 330. Her Apoprotein B level was 76. She had a negative coronary calcium screen. She understands the limitations of this test. She will continue treat with decreasing the simple sweets, added sugars, refined starches, and bad/added fats, increasing activity and exercise and continued long-term weight loss. 4. Yalzbmqvdubf-figb-injtourqkq. She may be able to cut back [...] continue regular lab work with her PCP. She will discuss with her coremaker machine increasing her statin dose or adding Zetia due to her elevated LP(a) and strong family history of CAD/CVA.
--- OUTSIDE RECORDS SUMMARY | 2025-04-20 08:00 | XMS_ITS | Encounter Summary ---
Author Organization [facility] Address [address] [place] [address] Care Team Providers Care Supervisor Core Shop Name Role Phone Alexis Sal MD Primary Care Provider [phone] Reason for Visit * Consultation (Routine) - AuthorizedSpecialtyDiagnoses / ProceduresReferred By ContactReferred To ContactPhysical Therapy Diagnoses Iliotibial band syndrome of right side Procedures SC OFFICE/OUTPATIENT [facility]3] 60 MINUTES Clint Anand, DO [address] [facility] [place] [address] Phone: tel: fax: Jada Cunha PT Referral IDStatusReasonStart DateExpiration DateVisits RequestedVisits [id number] Consult and Treat 59999 Encounter Details DateTypeDepartmentCare Team (Latest Contact Info)Imvnkooboqs44/12/2025 8:00 AM ESTTreatment [facility] [address] [place] [phone] Nicholas Farrell PTA Iliotibial band syndrome of right side (Primary Dx) Social History Tobacco UseTypesPacks/DayYears UsedDateSmoking Tobacco: NeverSmokeless Tobacco: NeverAlcohol UseStandard Drinks/WeekCommentsYes0 (1 standard drink = 0.6 oz pure alcohol)1-2 drinks monthly or less, coffee 2-3 cups per dayComments UnknownSex and Gender InformationValueDate RecordedSex Assigned at BirthFemale 07/13/2023 8:41 AM ESTLegal XjrBxibjt42/15/2023 6:45 PM EDTGender IdentityFemale 07/13/2023 8:41 AM ESTSexual OrientationNot on filedocumented as of this encounter Progress Notes * Nicholas Bud, SLOT ROUTER - 04/20/2025 8:00 AM EST Images from the original note were not included. Physical Therapy Treatment Visit Patient Name: Codi Cesar Today's Date: 04/20/2025 Encounter Diagnoses Name Primary? Iliotibial band syndrome of right side Yes Visit number: 8 Timed Code Treatment: 53 minutes Total Treatment Time: 63 minutes Time In: 0800 Time Out: 0905 History: Pt states she underwent surgery for [...] lateral knee pain along distal IT band. This woke her up in from sleep, Pt [place] [facility] [place] [facility]. Pain: denies Objective: PT Evaluation (03/23/2025) LUMBAR [...] band to improve functional mobility. Therapeutic Exercise: (38 minutes supervised) Guided pt through ther and [...] inflammation and muscle soreness Assessment: Visit # 8 pt with complaints of chronic right lateral hip pain and right low back pain.Reports improvement in pain and mobility. Mild tone along TFL, lateral quad (mid belly and distal regions). Continued hip strengthening ex with no increased pain, refer to PRE sheet for progressions. Ended session with [facility], Per Pt request. Outcome Measure: Lower Extremity Functional Scale (LEFS): 60/80 Rehab Diagnosis: right hip and thigh pain, low back pain, decrease hip strength and mobility Short Term Goal: To be met in 2 weeks Goal 1: Pt to be instructed in home exercise program. [facility] Goals: To be met in 10 weeks [...] Please sign below. Date: Cosigned by Jada Cunha, PT at 04/22/2025 7:27 AM EST documented in this encounter Plan of Treatment DateTypeDepartmentCare Team (Latest Contact Info)Evevplcymam13/22/2026 9:00 AM ESTOffice Visit [facility] [address] [place] [phone] Clint Anand DO [address] [place] [address] documented as of this encounter Visit Diagnoses Diagnosis Iliotibial band syndrome of right side- Primary documented in this encounter Care Teams Team MemberRelationshipSpecialtyStart DateEnd Date Alexis Sal MD PCP - General07/13/23documented as of this encounter
--- OUTSIDE RECORDS SUMMARY | 2025-04-22 11:12 | XMS_ITS | Encounter Summary ---
Author Organization [facility] Address [address] [place] [address] Care Team Providers Care Cloth Folder Hand Name Role Phone Alexis Sal MD Primary Care Provider [phone] Encounter Details DateTypeDepartmentCare Team (Latest Contact Info)Sdwebkivoqu36/12/2025amboo flowsheet [facility] [address] [place] [phone] Nicholas Farrell PTA Social History Tobacco UseTypesPacks/DayYears UsedDateSmoking Tobacco: NeverSmokeless Tobacco: NeverAlcohol UseStandard Drinks/WeekCommentsYes0 (1 standard drink = 0.6 oz pure alcohol)1-2 drinks monthly or less, coffee 2-3 cups per dayComments UnknownSex and Gender InformationValueDate RecordedSex Assigned at BirthFemale 07/13/2023 8:41 AM ESTLegal DzzTekjmz52/15/2023 6:45 PM EDTGender IdentityFemale 07/13/2023 8:41 AM ESTSexual OrientationNot on filedocumented as of this encounter Plan of Treatment DateTypeDepartmentCare Team (Latest Contact Info)Dwecyncczkc77/22/2026 9:00 AM ESTOffice Visit [facility] [address] [place] [phone] Clint Anand DO [address] [place] [address] documented as of this encounter Visit Diagnoses Not on filedocumented in this encounter Care Teams Team MemberRelationshipSpecialtyStart DateEnd Date Alexis Sal MD PCP - General07/13/23documented as of this encounter
--- OUTSIDE RECORDS SUMMARY | 2025-04-22 11:12 | XMS_ITS | Clinical Summary ---
Author Organization [facility] Address [address], [address] [place] [address] Care Team Providers Care Ragman Name Role Phone Alexis Sal MD Primary Care Provider [phone] Allergies No known active allergies Medications MedicationSigDispense QuantityRefillsLast FilledStart DateEnd DateStatus cetirizine (ZYRTEC) 10 MG tablet 07/12/2019Active gemfibrozil (LOPID) 600 MG tablet 06/28/2019Active pramipexole (MIRAPEX) 0.25 MG tablet 05/28/2019Active Multiple Vitamins-Iron (MULTI-VITAMIN/IRON PO) Take by mouthActive PARoxetine (PAXIL) 20 MG tablet Indications:Menopausal symptomTake 1 tablet by mouth every morning 90 tablet Active azithromycin (ZITHROMAX) 250 MG tablet Indications:Acute frontal sinusitis, recurrence not specifiedTake 2 tabs (500 mg) on Day 1, and take 1 tab (250 mg) on days 2 through 5. 1 packet 07/19/2019Active Family History Medical HistoryRelationNameCommentsAlcohol AbuseFatherHeart AttackFatherat age 56High Blood PressureFatherHigh CholesterolFatherDiabetesMotherHeart Attack MotherHigh Blood PressureMotherHigh CholesterolMotherOsteoporosisMotherRelation NameStatusCommentsFatherDeceasedMotherDeceased Social History Tobacco UseTypesPacks/DayYears UsedDateSmoking Tobacco: NeverSmokeless Tobacco: NeverAlcohol UseStandard Drinks/WeekCommentsYes0 (1 standard drink = 0.6 oz pure alcohol)socialCommentsNoSex and Gender InformationValueDate RecordedSex Assigned at BirthNot on fileLegal NziFmxxgm99/30/2019 11:00 AM ESTGender IdentityNot on fileSexual OrientationNot on file Last Filed Vital Signs Vital SignReadingTime TakenCommentsBlood Nganmrol165/8607/19/2019 11:07 AM EST Pulse--Temperature--Respiratory Rate--Oxygen Saturation--Inhaled Oxygen Concentration--Bnjcgi41.2 kg (190 lb)07/19/2019 11:07 AM INDLuxywq989.5 cm (5' 2 )07/19/2019 11:07 AM ESTBody Mass Index34.75007/19/2019 11:07 AM EST Plan of Treatment Not on file Care Teams Team MemberRelationshipSpecialtyStart DateEnd Date Alexis Sal MD [address] [place] [address] PCP - GeneralFamily Riikukdz80/30/19
--- OUTSIDE RECORDS SUMMARY | 2025-04-22 11:12 | XMS_ITS | Encounter Summary ---
Author Organization [facility] Address [address] [place] [address] Care Team Providers Care Watershed Tender Name Role Phone Alexis Sal MD Primary Care Provider [phone] Encounter Details DateTypeDepartmentCare Team (Latest Contact Info)Nieuqrwzlst96/12/2025Travel Social History Tobacco UseTypesPacks/DayYears UsedDateSmoking Tobacco: NeverSmokeless Tobacco: NeverAlcohol UseStandard Drinks/WeekCommentsYes0 (1 standard drink = 0.6 oz pure alcohol)1-2 drinks monthly or less, coffee 2-3 cups per dayComments UnknownSex and Gender InformationValueDate RecordedSex Assigned at BirthFemale 07/13/2023 8:41 AM ESTLegal UibNuhwzg62/15/2023 6:45 PM EDTGender IdentityFemale 07/13/2023 8:41 AM ESTSexual OrientationNot on filedocumented as of this encounter Plan of Treatment DateTypeDepartmentCare Team (Latest Contact Info)Juwlombzftr79/22/2026 9:00 AM ESTOffice Visit [facility] [address] [facility] [place] [phone] Clint Anand DO [address] [place] [address] documented as of this encounter Visit Diagnoses Not on filedocumented in this encounter Care Teams Team MemberRelationshipSpecialtyStart DateEnd Date Alexis Sal MD PCP - General07/13/23documented as of this encounter
--- OUTSIDE RECORDS SUMMARY | 2025-04-22 11:12 | XMS_ITS | Encounter Summary ---
Author Organization [facility] Address [address] [place] [address] Care Team Providers Care Paint Crew Supervisor Name Role Phone Alexis Sal MD Primary Care Provider [phone] Encounter Details DateTypeDepartmentCare Team (Latest Contact Info)Kaugfmxgvtf79/10/2025Travel Social History Tobacco UseTypesPacks/DayYears UsedDateSmoking Tobacco: NeverSmokeless Tobacco: NeverAlcohol UseStandard Drinks/WeekCommentsYes0 (1 standard drink = 0.6 oz pure alcohol)1-2 drinks monthly or less, coffee 2-3 cups per dayComments UnknownSex and Gender InformationValueDate RecordedSex Assigned at BirthFemale 07/13/2023 8:41 AM ESTLegal GstSrkloo71/15/2023 6:45 PM EDTGender IdentityFemale 07/13/2023 8:41 AM ESTSexual OrientationNot on filedocumented as of this encounter Plan of Treatment DateTypeDepartmentCare Team (Latest Contact Info)Cqwmexajkjv52/22/2026 9:00 AM ESTOffice Visit [facility] [address] [facility] [place] [address] Clint Anand DO [address] [place] [address] documented as of this encounter Visit Diagnoses Not on filedocumented in this encounter Care Teams Team MemberRelationshipSpecialtyStart DateEnd Date Alexis Sal MD PCP - General07/13/23documented as of this encounter
--- OUTSIDE RECORDS SUMMARY | 2025-04-22 11:12 | XMS_ITS | Encounter Summary ---
Author Organization [facility] Address [address] [place] [address] Care Team Providers Care Circle Edger Name Role Phone Alexis Sal MD Primary Care Provider [phone] Encounter Details DateTypeDepartmentCare Team (Latest Contact Info)Dencvdyoumx27/05/2025amboo flowsheet [facility] [address] [place] [address] Nicholas Farrell PTA Social History Tobacco UseTypesPacks/DayYears UsedDateSmoking Tobacco: NeverSmokeless Tobacco: NeverAlcohol UseStandard Drinks/WeekCommentsYes0 (1 standard drink = 0.6 oz pure alcohol)1-2 drinks monthly or less, coffee 2-3 cups per dayComments UnknownSex and Gender InformationValueDate RecordedSex Assigned at BirthFemale 07/13/2023 8:41 AM ESTLegal FqbRxdcml25/15/2023 6:45 PM EDTGender IdentityFemale 07/13/2023 8:41 AM ESTSexual OrientationNot on filedocumented as of this encounter Plan of Treatment DateTypeDepartmentCare Team (Latest Contact Info)Apqdfyhliad28/22/2026 9:00 AM ESTOffice Visit [facility] [address] [place] [phone] Clint Anand DO [address] [place] [address] [place] [address] documented as of this encounter Visit Diagnoses Not on filedocumented in this encounter Care Teams Team MemberRelationshipSpecialtyStart DateEnd Date Alexis Sal MD PCP - General07/13/23documented as of this encounter
--- OUTSIDE RECORDS SUMMARY | 2025-04-22 11:12 | XMS_ITS | Patient Health Record ---
Author Organization [facility] [place] Address [address] [place] [address] Care Team Providers Care Nutter Up Name Role Phone Juan F Sal Primary Care Provider Allergies No Known Allergies Results Component Value Reference Range Notes CBC AUTO DIFF Reviewed date:12/07/2024 08:10:55 PM Interpretation: Performing Lab: Notes/Report: [facility] , White Blood Count 6.4 4.0-11.0 10 3/uL Red Blood Count4.034.20-5.40 10 6/xLDdozlpjkgb70.212.0-16.0 g/oRDucjhogvzg63.4 36.0-48.0 %Mean Corpuscular Hcxsav25.381.0-99.0 fLMean Corpuscular Hemoglobin 30.326.7-34.0 pgMean Corpuscular HGB Conc33.529.9-35.2 g/dLRed Cell Distribution Width13.011.0-15.0 %Platelet Nybxz871221-798 10 3/uLMean Platelet Ejogix93.09.5- 13.5 fLNeutrophils Percent Auto62.243.0-75.0 %Lymphocytes Percent Auto29.020.5- 60.0 %Monocytes Percent Auto6.01.7-12.0 %Eosinophils Percent Auto2.20.9-7.0 % Basophils Percent Auto0.30.2-2.0 %Immature Granulocytes Pct Auto0.30.0-0.5 % Neutrophils Absolute Auto4.01.4-6.5 10 3/uLLymphocytes Absolute Auto1.81.2-3.8 10 3/uLMonocytes Absolute Auto0.40.3-0.8 10 3/uLEosinophils Absolute Auto0.10.0- 0.7 10 3/uLBasophils Absolute Auto0.00.0-0.1 10 3/uLImmature Granulocytes Abs Auto0.020.00-0.03 10 3/uLPerforming Lab:see noteML - [facility] LB FREE T3 Reviewed date:12/07/2024 08:10:55 PM Interpretation: Performing Lab: Notes/Report: [facility] ,Free T32.952.18-3.98 pg/mLPerforming Lab:see note - [facility] LB GLYCOHEMOGLOBIN A1C Reviewed date:12/07/2024 08:10:55 PM Interpretation: Performing Lab: Notes/Report: [facility] ,Glycohemoglobin A1C5.14.5-6.2 % ADA RECOMMENDED LIMIT 4.0 - 6.0 ADA THERAPEUTIC TARGET < 7.0 ACTION SUGGESTED > 7.0 Estimated Average Nzxtxjb034Nzfnhidkon Lab:see noteML - [facility] LB LIPID PROFILE Reviewed date:12/07/2024 08:10:55 PM Interpretation: Performing Lab: Notes/Report: [facility] ,Hsgsrlhpfhdhb30<=150 mg/oEQrwbwuinhgn350<=200 mg/dLHDL Pamrdpbaybf3171-33 mg/dL > or =60 mg/dl - LOW CARDIOVASCULAR RISK <40 mg/dl - HIGH CARDIOVASCULAR RISK LDL Cholesterol Ouebtmgsmt95.2 <100 mg/dl OPTIMAL 100-129 mg/dl NEAR OR ABOVE OPTIMAL 130-159 mg/dl BORDERLINE HIGH 160-189 mg/dl HIGH >190 mg/dl VERY HIGH VLDL USCFXPNQJCS20.8Chol HDL Ratio2.1 3.3 - 4.4 LOW RISK 4.4 - 7.1 AVERAGE RISK 7.1 - 11.0 MODERATE RISK >11.0 HIGH RISK Performing Lab:see note - [facility] LBPROF 14(COMP METB) Reviewed date:12/07/2024 08:10:55 PM Interpretation: Performing Lab: Notes/Report: [facility] ,Nuzftn776058-977 mmol/LPotassium4.23.5-5.1 mmol/JZumoastn62007-048 mmol/LCarbon Rsenzvj08.321.0-32.0 mmol/LAnion Gap11.6Zhvkoqr1772-607 mg/dLBlood Urea Nitrogen 15.07.0-18.0 mg/dLCreatinine0.800.55-1.02 mg/dLEstimated GFR ( Nancy>60 >=60 mL/min/1.73m 2Estimated GFR (Non- Lena>60>=60 mL/min/1.73m 2BUN Creatinine Ratio18.7Xhiuaqn7.78.5-10.1 mg/dLBilirubin Total0.40.2-1.0 mg/dL Aspartate Amino Tozaybyhpab5775-73 U/LAlanine Utibsyefmstnmnfa2825-07 U/L Alkaline Hraypevkoli1197-123 U/LTotal Protein6.66.4-8.2 g/dLAlbumin Level3.63.4- 5.0 g/dLGlobulin3.0Albumin Globulin Ratio1.2Performing Lab:see noteML - [facility] LBT4 Reviewed date:12/07/2024 08:10:55 PM Interpretation: Performing Lab: Notes/Report: [facility] ,T4 Thyroxine7.004.80-13.90 ug/dLPerforming Lab:see noteML - [facility] LBTSH Reviewed date:12/07/2024 08:10:55 PM Interpretation: Performing Lab: Notes/Report: [facility] ,Thyroid Stimulating Hormone1.6730.358-3.740 uIU/mLPerforming Lab:see noteML - [facility] LBUA DIP NONAUTO WO MICRO (95339) - IN OFFICE Reviewed date:10/01/2024 10:51:17 AM Interpretation: Performing Lab: Notes/Report: COLORYellowCLARITYClearGLUCOSENegBILIRUBINNegKETONENegSPECIFIC GRAVITY1.005BLOOD WjfOP7AOBKQFMEocPWPEFJCXGUBXXzcJLILZNLPnuJIVLAAPOU ESTERASE++Occult Blood* Reviewed date:01/19/2025 12:58:23 PM Interpretation: Performing Lab: Notes/Report: [facility] ,Occult BloodNegativePerforming Lab:see noteML - [facility] LB Reason For Referral No Information Medications Medication SIG (Take, Route, Frequency, Duration) Notes Start Date End Date Status Cetirizine HCl 10 mg TAKE 1 TABLET AT BEDTIME ActiveZepbound 10 MG/0.5MLas directed Subcutaneous vwlgtt765Active buPROPion HCl ER (XL) 150 mgTAKE 1 TABLET DAILYActivePramipexole Dihydrochloride 1 mgTAKE 2 TABLETS ONCE DAILYActiveFlonase Allergy Relief 50 MCG/ACT1 spray in each nostril Nasally Once a day; Duration: 30 days5ActiveRosuvastatin Calcium 20 MGOral; Duration: 90 DaysActiveMulti Vitamin -1 tablet Orally Once a dayActivePantoprazole Sodium 40 mgTAKE 1 TABLET DAILYActiveFeroSul 325 (65 Fe) MGtake 1 tablet Oral once daily; Duration: 90 daysActiveFluticasone Furoate 27.5 MCG/SPRAY2 sprays (1 spray in each nostril) Nasally BID; Duration: 30 days 1120VabrmeSeG07 30 MGas directed OrallyDosage UnknownActiveDiclofenac Sodium 75 MG1 tablet as needed Orally Twice a day; Duration: 30 days04/22/2025 ActiveFenofibrate 67 MG1 capsule with a meal Orally Once a day4Active tiZANidine HCl 4 MG2 tabs Orally qhs; Duration: 30 days5Active Immunizations Vaccine Route Administration Date Status Comme nts Flu, Flucelvax (48417) 2 yrs +, single-dose syringe (6603-8408) Unknown 03/30/2020 Administered Flu, Flucelvax (84626) 2 yrs+, single-dose syringe (3652-3173)Bxstkbu3506/19/2022 AdministeredFlu, Flucelvax (07058) 4 yrs and older, multi-dose vial (7677-9688) Ehknkdf7904/08/2018AdministeredPPD TestTD Vrlknkhodrc81/14/2024dministeredPPD TestTD Wstmagwewnq69/21/6385TrscanffzuonELRU-XGO-6 (COVID 19 Pfizer 30mcg/0.3mL) Rsxupjk73/01/2636YhxzcfwhpgpvVPIW-GTG-2 (COVID 19 Pfizer 30mcg/0.3mL)Unknown 1AdministeredZOSTER (SHINGLES) VACCINE (HZV)Utelsgf8206/14/2021 AdministeredZOSTER (SHINGLES) VACCINE (HZV)Dautvsz6310/04/2021dministered Social History Tobacco Use: Social History Observation Description Date Details (start date - stop date) Never Smoker NA - NA Tobacco Use/Smoking Question Answer Notes Patient is a nonsmoker Alcohol Screen (Audit-C) Question Answer Notes Did you have a drink containing alcohol in the p ast year? No Korrxl9YewjnyyydpexgrIjvjdfusUYUWL-K (Standard) Question Answer Notes Did you have a drink containing alcohol in the p ast year? No Cfcahw4UgrzghqdiwkiilDluxlagl Problems Problem Type SNOMED Code ICD Code Onset Dates Problem Status W/U Status Risk Notes Problem Chronic pain (62995510) Other chronic lew n (G89.29) ActiveconfirmedProblemPrimary osteoarthritis (411340335)Unilateral primary osteoarthritis, right knee (M17.11)ActiveconfirmedProblemPain of right shoulder region (finding) (5336571557)Pain in right shoulder (M25.511)Activeconfirmed ProblemShoulder joint pain (230940787)Pain in left shoulder (M25.512)Active confirmedProblemHypertension (82678159)Hypertension (I10)ActiveconfirmedProblem Osteoarthritis (882170327)Osteoarthritis (M19.90)ActiveconfirmedProblem Gastroesophageal reflux disease (597904823)GERD (gastroesophageal reflux disease) (K21.9)ActiveconfirmedProblemRestless legs (09700081)Restless leg (G25.81)ActiveconfirmedProblemSleep apnea (61489055)Sleep apnea (G47.30)Active confirmedProblemInsomnia (944760890)Insomnia (G47.00)ActiveconfirmedProblem Cervical pain (45667629)Cervical pain (M54.2)ActiveconfirmedProblemWell adult (798952990)Well adult (Z00.00)ActiveconfirmedProblemSciatica (72213283)Sciatica (M54.30)ActiveconfirmedProblemAcute urinary tract infection (589331218)Acute UTI (N39.0)ActiveconfirmedProblemPure hypercholesterolemia (575660253)Pure hypercholesterolemia, unspecified (E78.00)ActiveconfirmedProblemDisorder of sacrum (17240465)Low back derangement syndrome (M53.86)ActiveconfirmedProblem Osteoarthritis of knee (240440014)Knee osteoarthritis (M17.10)Activeconfirmed Vital Signs Blood pressure diastolic 62 mm Hg 04/22/2025 Fevsbr98 in04/22/2025lood pressure bneqxbyi784 mm Hg04/22/20257535Jbekoq791.8 lbs 04/22/2025BMI29.77 kg/m204/22/2025 Procedures Procedure Date Ordered Date Performed Result Body Sit e Sleep Study: Retitration BIPAP/CPAP 06/17/2024 N/A Encounters Encounter Location Date Provider [facility] [address] [place] [address] 05/12/2024 Juan F Hoy Hypertension I10 [facility] [address] [place] [address] 10/01/2024 Juan F Hoy Frequency of micturi tion R35.0 [facility] [address] [place] [address] 06/17/2024 Juan F Hoy Sleep apnea G47.30 a nd Insomnia G47.00 [facility] [address] [place] [address] 04/22/2025 Juan F Hoy Cervical pain M54.2 [facility] [address] [place] [address] 05/20/2024 Juan F Hoy [facility] [place] [address] 07/07/2024[facility] [place] [address]/25/2025[facility] [place] [address]/25/2025Doug HoyUrinary frequency R35.0 and Sleep apnea G47.30[facility] [place] [address]/16/2025[facility] [place] [address] [place] [facility] [place] [address]/[facility] [address] [place] [address] [place] [place] [address]/[facility].00[place] [address] [place] [address]/06/2024 Juan F Kathy [facility] [place] [address] [facility] En[facility] Date Diagnosis (ICD Code) Assessment Notes Treatment Notes Treatment Clinical Notes Section Notes 05/12/2024 Hypertension (ICD-10 - I10) trial off BP meds and follow up for BP next week - exellent weight loss 06/17/2024Sleep apnea (ICD-10 - G47.30)06/17/2024Insomnia (ICD-10 - G47.00) 10/01/2024Frequency of micturition (ICD-10 - R35.0)04/22/2025ervical pain (ICD- 10 - M54.2)10/01/2024Urinary frequency (ICD-10 - R35.0)11/29/2024Well adult (ICD-10 - Z00.00)10/01/2024Sleep apnea (ICD-10 - G47.30)04/22/2025Other Recommended to rest and use a heating pad on the area. Take NSAIDs for pain as needed Plan Of Treatment Pending Test Test Name Order Date CMP (COMPLETE METABOLIC PANEL) UA (URINALYSIS, COMPLETE) 10/23/2023 CULTURE, URINE w SENSITIVITY 10/23/2023 HEMOGLOBIN A1C (GLYCO) 10/21/2023 CBC WITH DIFF 10/21/2023 Urinalysis Microscopic 10/21/2023 FECAL OCCULT BLOOD 11/18/2022 FECAL OCCULT BLOOD 11/29/2024 Sleep Study: Retitration BIPAP/CPAP 02/2025 .Urinalysis Microscopic Only 10/23/2023 STOOL OCCULT BLOOD 10/21/2023 CBC AUTO DIFF 11/18/2022 CBC AUTO DIFF 11/29/2024 CULTURE URINE 10/23/2023 GLYCOHEMOGLOBIN A1C 11/18/2022 GLYCOHEMOGLOBIN A1C 11/29/2024 LIPID PROFILE 11/29/2024 LIPID PROFILE 11/18/2022 PROF 14(COMP METB) 11/29/2024 THYROID PROFILE WITH TSH 11/18/2022 THYROID PANEL (T4/TSH/FREE T3) THYROID PANEL (T4/TSH/FREE T3) XR cervical spine 2-3V 04/22/2025 Insurance Providers Payer Name Payer Address Payer Phone Subscriber Number Group Number Insured Name Patient Relationship to Insured Coverage Start Date Coverage End Date [facility] CLAIM[facility] [address] [place] [id number] Amira Cesar - patient is the spouse of the insured Medications Administered Medication Instructions Date of Administration Dosage Notes Dexamethasone, 4mg/mL mgKenalog-400 mgKetorolac Hcgepgdlrlza39/03/202460 mg60 Ketorolac Xiywqekrnmei46/30/202460 mgOrphenadrine Nzrxhha11 mg60 Orphenadrine Ctvfiql68 mgSynvisc One mL Medical (General) History Medical History History ICD Code Chest Pain Covid-19Low Back Pain SyndromeSprain of ligaments of thoracic spineEczema Surgical History Surgery Date(Month/Year) Surgery- Dr. Murillo Shoulder Surgery- RightLeap Wszijuf28/2006RT knee- medial meniscectomy- Dr. Ospina12/05/2023
--- OUTSIDE RECORDS SUMMARY | 2025-04-22 11:12 | XMS_ITS | Encounter Summary ---
Author Organization [facility] Address [address] [place] [address] Care Team Providers Care Executive Producer Promos Name Role Phone Alexis Sal MD Primary Care Provider [phone] Encounter Details DateTypeDepartmentCare Team (Latest Contact Info)Oruuuwrsdju85/10/2025amboo flowsheet [facility] [address] [place] [address] Nicholas Farrell PTA Social History Tobacco UseTypesPacks/DayYears UsedDateSmoking Tobacco: NeverSmokeless Tobacco: NeverAlcohol UseStandard Drinks/WeekCommentsYes0 (1 standard drink = 0.6 oz pure alcohol)1-2 drinks monthly or less, coffee 2-3 cups per dayComments UnknownSex and Gender InformationValueDate RecordedSex Assigned at BirthFemale 07/13/2023 8:41 AM ESTLegal BgyAbuusl76/15/2023 6:45 PM EDTGender IdentityFemale 07/13/2023 8:41 AM ESTSexual OrientationNot on filedocumented as of this encounter Plan of Treatment DateTypeDepartmentCare Team (Latest Contact Info)Fkashodkygv55/22/2026 9:00 AM ESTOffice Visit [facility] [address] [address] Clint Anand DO [address] [place] [address] documented as of this encounter Visit Diagnoses Not on filedocumented in this encounter Care Teams Team MemberRelationshipSpecialtyStart DateEnd Date Alexis Sal MD PCP - General07/13/23documented as of this encounter
--- OUTSIDE RECORDS SUMMARY | 2025-04-22 11:12 | XMS_ITS | Encounter Summary ---
Author Organization [facility] Address [address] [place] [address] Care Team Providers Care Bin Piler Name Role Phone Alexis Sal MD Primary Care Provider [phone] Encounter Details DateTypeDepartmentCare Team (Latest Contact Info)Flnyatximgf35/05/2025Travel Social History Tobacco UseTypesPacks/DayYears UsedDateSmoking Tobacco: NeverSmokeless Tobacco: NeverAlcohol UseStandard Drinks/WeekCommentsYes0 (1 standard drink = 0.6 oz pure alcohol)1-2 drinks monthly or less, coffee 2-3 cups per dayComments UnknownSex and Gender InformationValueDate RecordedSex Assigned at BirthFemale 07/13/2023 8:41 AM ESTLegal DjiRkavaf81/15/2023 6:45 PM EDTGender IdentityFemale 07/13/2023 8:41 AM ESTSexual OrientationNot on filedocumented as of this encounter Plan of Treatment DateTypeDepartmentCare Team (Latest Contact Info)Ihmqkhiikmk37/22/2026 9:00 AM ESTOffice Visit [facility] [address] [facility] [place] [address] Clint Anand DO [address] [place] [address] documented as of this encounter Visit Diagnoses Not on filedocumented in this encounter Care Teams Team MemberRelationshipSpecialtyStart DateEnd Date Alexis Sal MD PCP - General07/13/23documented as of this encounter
--- OUTSIDE RECORDS SUMMARY | 2025-04-22 11:12 | XMS_ITS | Clinical Summary ---
Author Organization [employer] tem Address [id number] [address] [place] [address] Care Team Providers Care Hydropress Operator Name Role Phone Alexis Sal MD Primary Care Provider [phone] Allergies No known active allergies Medications MedicationSigDispense QuantityRefillsLast FilledStart DateEnd DateStatus cetirizine (ZyrTEC) 10 mg tablet Take 1 tablet (10 mg total) by mouth in the morning.Active ezfuylhg-sbyr-KP-calcium &mins (THERAGRAN-M) 9 mg iron-400 mcg tablet Take 1 tablet by mouth in the morning.Active pramipexole (MIRAPEX) 1 mg tablet Take 2 tablets (2 mg total) by mouth in the morning.Active buPROPion XL (WELLBUTRIN XL) 150 mg 24 hr tablet Take 1 tablet (150 mg total) by mouth in the morning.02/18/2020Active FeroSuL 325 mg (65 mg iron) tablet Take 1 tablet (325 mg total) by mouth in the morning.1Active pantoprazole (PROTONIX) 40 mg EC tablet Take 1 tablet (40 mg total) by mouth in the morning.05/31/2020Active cholecalciferol (VITAMIN D3) 1,000 units tablet Take 2 tablets (2,000 Units total) by mouth in the morning.Active coenzyme Q10 100 mg capsule Take 1 capsule (100 mg total) by mouth in the morning. 30 capsule ctive UNABLE TO FIND Eye promise 1 tablet dailyActive tirzepatide, weight loss, (ZEPBOUND) 10 mg/0.5 mL solution Inject 10 mg under the skin every 7 days.Active fenofibrate micronized (LOFIBRA) 67 mg capsule Indications:Other hyperlipidemia,High triglyceridesTAKE 1 TABLET BY MOUTH EVERY DAY IN THE MORNING BEFORE MEALS 90 capsule 5Active rosuvastatin (CRESTOR) 20 mg tablet TAKE 1 TABLET IN THE EVENING 90 tablet 1105Active rosuvastatin (CRESTOR) 20 mg tablet TAKE 1 TABLET IN THE EVENING 90 tablet Discontinued Active Problems ProblemNoted DateDiagnosed DatePrimary dtdfbsyprhlr70/28/2022yslipidemia 06/05/2022Family history of heart iiwbvyj0508/02/2021Essential hypertension 08/02/20215702Xdfnbbosx47/07/2022leep apnea02/09/2021Hot flashes due to menopause 12/21/2020 Resolved Problems ProblemNoted DateDiagnosed DateResolved DateObesity (BMI 30-39.9)08/02/2021 09/27/2024Shortness of ttblyq33/11/2023 Encounters DateTypeDepartmentCare ZvmtKvmekelebsw80/29/2025Refill [facility] [address] [place] [phone] Lorena Sigala, CAGE UNLOADER-VISUALIZATION DEVELOPER Med Jlufzd7102/23/2025 8:34 AM EDT - 02/23/2025 11:59 PM EDTHospital Encounter [facility] [address] [place] [address] Screening mammogram, encounter for Discharge Disposition: Home02/22/20256770Qptues64/27/2025 1:15 PM EDTOffice Visit [facility] [address] [place] [address] Karissa Alva MD Well woman exam with routine gynecological exam (Primary Dx); Screening mammogram, encounter for02/01/2025Travelfrom Last 3 Months Family History Medical HistoryRelationNameCommentsMuscular dystrophyBrother 1Suicide Attempts Brother 2Alcohol abuseBrother 3Lee LillyDrug abuseBrother 3Lee LillyEarly Brother 3Lee LillyEarly deathBrother 4Perry LillyAlcohol abuseBrother 5Lee Nikki Drug abuseBrother 5Lee LillyEarly deathBrother 5Lee LillyEarly deathBrother 6 Antelmo LillyNo Known ProblemsDaughterAlcohol abuseFatherHoward LillyEarly FatherHoward LillyHeart attackFatherHoward LillyHeart diseaseFatherHoward Nikki Breast cancerMaternal AuntCancerMaternal GrandmotherlungDiabetesMotherJo Nikki HaenelHeart diseaseMotherJo Nikki HaenelHypertensionMotherJo Nikki HaenelStroke MotherJo Nikki HaenelUlcersMotherJo Nikki HaenelStrokePaternal Grandmother Mirna LillyNo Known ProblemsSister 1No Known ProblemsSister 2DiabetesSister 3 Brenda LillyStrokeSister 4Terry LillyDiabetesSister 5Julie LillyStrokeSister 6 Channing LillyNo Known ProblemsSonRelationNameStatusCommentsBrother 1Deceased Brother 2DeceasedBrother 3Lee LillyAliveBrother 4Perry LillyAliveBrother 5Lee LillyAliveBrother 6Perry LillyAliveDaughterAliveFatherHoward LillyDeceased Maternal AuntMaternal GrandfatherDeceasedMaternal GrandmotherDeceasedMotherJo Nikki HaenelDeceasedPaternal GrandfatherDeceasedPaternal GrandmotherClarice LillyDeceasedSister 1AliveSister 2AliveSister 3Julie LillyAliveSister 4Terry LillyAliveSister 5Julie LillyAliveSister 6Terry LillyAliveSonAlive Social History Tobacco UseTypesPacks/DayYears UsedDateSmoking Tobacco: NeverSmokeless Tobacco: Never Tobacco Cessation:Counseling Given: Not Answered Alcohol UseStandard Drinks/WeekCommentsYes1 (1 standard drink = 0.6 oz pure alcohol)rareChildcareAnswerDate HckyhfnfCjelhkobhYhncwrv56/03/2019Employment AnswerDate InmjhdbrWnnlqynfdrQsmmrfo04/03/2019Hunger ScreeningAnswerDate RecordedWithin the past 12 months we worried whether our food would run out before we got money to buy more.Never True09/27/2024Within the past 12 months the food we bought just didn't last and we didn't have money to get more.Never True09/27/2024Purpose - LifeAnswerDate RecordedPurpose and direction in life Iyifexp98/11/2021CommentsNoSex and Gender InformationValueDate Recorded Sex Assigned at AwpksHigjmv99/06/2022 7:08 PM ESTLegal PzjQdkpox41/03/2019 3:04 PM EDTGender UazgqnulOznowj65/06/2022 7:08 PM ESTSexual OrientationStraight 07/15/2021 7:08 PM EST Last Filed Vital Signs Vital SignReadingTime TakenCommentsBlood Shcschki471/8702/02/2025 1:22 PM EDT Qzbyy26747/27/2025 1:22 PM ZQUZgmfgwvqcnq07.4 ??C (97.5 ??F)02/24/2019 3:08 PM EDTRespiratory Bgkm042002/24/2019 3:40 PM EDTOxygen Iishtsegzg09%09/27/2024 7:49 AM EDTInhaled Oxygen Concentration--Dfnfty13.3 kg (155 lb)02/02/2025 1:22 PM EDT Xbyrkf746.5 cm (5' 2 )02/02/2025 1:22 PM EDTBody Mass Index28.35002/02/2025 1:22 PM EDT Plan of Treatment Health MaintenanceDue DateLast DoneCommentsDepression Vjfodnvtj02/07/1983Adult BMI Follow Up Plan1989Pap Smear, 12/27/2021, 07/19/2019COVID-19 Vaccine ( season)/, 11/07/2020 Influenza Sgidrhr28/10/2023, 06/19/2022, 06/18/2022, Additional history existsAdult BMI Tuqrecemd40Tobacco Qnziecvjv78/27/2026 02/02/2025DTaP,Tdap and Td Vaccines (2 - Td or Tdap)/Zoster (Shingles) RhatdotUmbwvdldr52/28/2022, 06/14/2021 Medical Devices Not on file Procedures Procedure NamePriorityDate/TimeAssociated DiagnosisCommentsMAMM SCREENING BILATERAL W RKAYwyurre74/17/2025 8:54 AM EDT Screening mammogram, encounter for PAP JSYSEEvwcjsr00/21/2022 7:43 AM EDT Well woman exam with routine gynecological exam from Last 3 Months or Most Recently Relevant to Health Maintenance Results * Mammography screening bilateral with CAD (02/23/2025 8:54 AM EDT)Anatomical RegionLateralityModalityBreastBilateralMammographySpecimen (Source)Anatomical Location / LateralityCollection Method / VolumeCollection TimeReceived Time 02/23/2025 11:04 AM EDT Narrative 02/23/2025 11:06 AM EDT CODI CESAR 1970 [id number] EXAM: MAMM SCREENING BILATERAL W CAD, 02/23/2025 8:34 AM CLINICAL INDICATIONS: Screening, Screening mammogram, encounter for COMPARISON: Outside mammogram 01/28/2024 TECHNIQUE: Bilateral digital tomosynthesis MLO and CC views of the breasts were obtained, with creation of synthetic 2D views. Computer aided detection was utilized. FINDINGS: There are scattered areas of fibroglandular density. There are no suspicious masses, calcifications, or areas of architectural distortion. IMPRESSION: No mammographic evidence of malignancy. BI-RADS: BI-RADS 1 - Negative RECOMMENDATION: ??Routine screening mammogram in 1 year. RISK ASSESSMENT: TC Lifetime risk: 8.5%. The patient's reported personal and family medical history was used calculate their Tyrer-Cuzick lifetime risk of malignancy. Scores less than 20% are not considered high risk per ACR guidelines and patient should continue with the above recommendation. Finalized by Genaro Fraser MD on 02/23/2025 11:06 AM 1 b MAMM 1 YR FDA Accredited Performing Facility: [facility] - Mammography/DEXA Imaging [address] [place] [id number] Procedure Note Genaro Fraser MD - 02/23/2025 CODI CESAR 1970 [id number] EXAM: MAMM SCREENING BILATERAL W CAD, 02/23/2025 8:34 AM CLINICAL INDICATIONS: Screening, Screening mammogram, encounter for COMPARISON: Outside mammogram 01/28/2024 TECHNIQUE: Bilateral digital tomosynthesis MLO and CC views of the breastswere obtained, with creation of synthetic 2D views. Computer aideddetection was utilized. FINDINGS: There are scattered areas of fibroglandular density. There are no suspicious masses, calcifications, or areas of architectural distortion. IMPRESSION: No mammographic evidence of malignancy. BI-RADS: BI-RADS 1 - Negative RECOMMENDATION: Routine screening mammogram in 1 year. RISK ASSESSMENT: TC Lifetime risk: 8.5%. The patient's reported personal and family medical history was usedcalculate their Tyrer-Cuzick lifetime risk of malignancy. Scores less than20% are not considered high risk per ACR guidelines and patient shouldcontinue with the above recommendation. Finalized by Genaro Fraser MD on 02/23/2025 11:06 AM 1 b MAMM 1 YR FDA Accredited Performing Facility: [facility] - Mammography/DEXA Imaging [address] [facility] [address] Authorizing ProviderResult TypeResult StatusMadeleine Artie KINGG MAMMOGRAPHY ORDERABLESFinal Result * Pap Smear (12/27/2021 7:43 AM EDT)Specimen (Source)Anatomical Location / LateralityCollection Method / VolumeCollection TimeReceived Time12/27/2021 7:43 AM EDT12/27/2021 7:44 AM EDT Narrative COPATH - 01/02/2022 11:33 AM EDT [facility] ? [address] [place] [address] ? [place] [address] ? Gynecologic Cytology Consultation ? Patient Name:CODI CESAR:1970 (Age: 51)Gender:FTaken:2Reported:2Physician(s):YULISSA GRANT M.D. ([phone])Copy To: Rec. #:[id number]: #[id number] Final Cytologic Interpretation ThinPrep Pap Test (Cervical): Satisfactory for evaluation. A transformation zone component is present. NEGATIVE FOR INTRAEPITHELIAL LESION OR MALIGNANCY. ?? [facility]/01/02/2022 Interpretation performed at [facility], [address] [place], [place] [address], License number: [id number]. Electronically Signed Out By ?LAURA Kowalski(ASCP) Date of Last Menstrual Period: ? (None Given) Other Clinical Conditions: Z01.419 Real Estate Broker Associate exam wo/abn findings Source of Specimen ??ThinPrep Pap Test (Cervical) ? Thin Prep Pap (CREDIT VERIFICATION CLERK) Fee Code(s): ?? G0145 Authorizing ProviderResult TypeResult StatusYulissa Grant MD PATHOLOGY/CYTOLOGY ORDERABLESFinal ResultPerforming OrganizationAddress City/State/ZIP CodePhone Number COPATH from Last 3 Months or Most Recently Relevant to Health Maintenance Insurance Care Teams Team MemberRelationshipSpecialtyStart DateEnd Alexis Sal MD PCP - GeneralFamily Medicine02/18/19
--- OUTSIDE RECORDS SUMMARY | 2025-04-22 11:12 | XMS_ITS | Clinical Summary ---
Author Organization [facility] Address [address] [place] [address] Care Team Providers Care Veneer Drier Feeder Name Role Phone Alexis Sal MD Primary Care Provider [phone] Medications MedicationSigDispense QuantityRefillsLast FilledStart DateEnd DateStatus cetirizine 10 mg ORAL tablet Take 10 mg by mouth once daily.Active diclofenac, EC, 75 mg ORAL EC tablet Take 75 mg by mouth twice daily.Active Social History Tobacco UseTypesPacks/DayYears UsedDateSmoking Tobacco: Never Assessed CommentsUnknownSex and Gender InformationValueDate RecordedSex Assigned at Not on fileLegal RncMmltpv76/02/2012 10:14 AM ESTGender IdentityNot on file Sexual OrientationNot on file Plan of Treatment Not on file Insurance Care Teams Team MemberRelationshipSpecialtyStart DateEnd Alexis Sal MD [facility]
--- OUTSIDE RECORDS SUMMARY | 2025-04-22 11:13 | XMS_ITS | Clinical Summary ---
Author Organization [facility] Address [address] [place] [address] Care Team Providers Care Roasterman Name Role Phone Alexis Sal MD Primary Care Provider [phone] Allergies No known active allergies Medications MedicationSigDispense QuantityRefillsLast FilledStart DateEnd DateStatus cetirizine (ZyrTEC) 10 mg tablet Take 10 mg by mouth in the morning.07/12/2019Active pramipexole (Mirapex) 1 mg tablet Take 1 mg by mouth in the morning.03/01/2020Active buPROPion XL (Wellbutrin XL) 150 mg 24 hr tablet 09/04/2022ctive rosuvastatin (Crestor) 20 mg tablet 09/19/2022ctive pantoprazole (ProtoNix) 40 mg EC tablet Take 40 mg by mouth in the morning.05/31/2020Active losartan-hydrochlorothiazide (Hyzaar) 50-12.5 mg tablet Take 1 tablet by mouth in the morning.08/02/2021ctive gabapentin (Neurontin) 300 mg capsule Take 300 mg by mouth in the morning, at noon, and at bedtime.ActiveHospital, Clinic, or Other Facility Administered MedicationOrdered DoseRouteFrequencyStart DateEnd DateStatus triamcinolone acetonide (Zilretta) injection 32 mg Indications:Primary osteoarthritis of right knee32 zoZSzzMfpg71/28/2023ctive Active Problems ProblemNoted DateDiagnosed DatePrimary osteoarthritis of right knee10/24/2022 Social History Tobacco UseTypesPacks/DayYears UsedDateSmoking Tobacco: NeverSmokeless Tobacco: Never Tobacco Cessation:Counseling Given: Not Answered Alcohol UseStandard Drinks/WeekCommentsNever0 (1 standard drink = 0.6 oz pure alcohol)Humiliation, Afraid, Rape, and Kick questionnaireAnswerDate Recorded Within the last year, have you been afraid of your partner or ex-partner?No 06/05/2023Within the last year, have you been humiliated or emotionally abused in other ways by your partner or ex-partner?No06/05/2023Within the last year, have you been kicked, hit, slapped, or otherwise physically hurt by your partner or ex-partner?No06/05/2023Within the last year, have you been raped or forced to have any kind of sexual activity by your partner or ex-partner?No3PHQ-2 AnswerDate RecordedPatient Health Questionnaire-2 Gwche04708/06/2022UT Safety & EnvironmentAnswerDate RecordedWithin the last year, have you been afraid of your partner or ex-partner?No06/05/2023Within the last year, have you been humiliated or emotionally abused in other ways by your partner or ex-partner?No06/05/2023 Within the last year, have you been kicked, hit, slapped, or otherwise physically hurt by your partner or ex-partner?No06/05/2023Within the last year, have you been raped or forced to have any kind of sexual activity by your part ner or ex-partner?No3Physically or Sexually AbusedNot on file06/05/2023 CommentsUnknownSex and Gender InformationValueDate RecordedSex Assigned at BirthNot on fileLegal FxiYjyfjy93/18/2023 2:22 PM ESTGender IdentityNot on fileSexual OrientationNot on file Last Filed Vital Signs Vital SignReadingTime TakenCommentsBlood Pressure--Pulse--Temperature-- Respiratory Rate--Oxygen Saturation--Inhaled Oxygen Concentration--Skenmr25.3 kg (210 lb)06/05/2023 10:02 AM DIERscmtv663.5 cm (5' 2 )06/05/2023 10:02 AM ESTBody Mass Index38.41108/06/2022 10:02 AM EST Plan of Treatment Health MaintenanceDue DateLast DoneCommentsCT Lavcfjlqoxfu1971FIT-DNA 1971FIT1971FOBT1970 8289Cewtaszqxlefq1971Depression Screening 1983Hepatitis B Vaccines (1 of 3 - 19+ 3-dose series)1990Adult Wpflpyw4301/13/1993HPV/Bkuxrw3401/13/20016257Mnvjjgxkw07/07/2011Cervical Cancer Obpfbycjt54/10/2023Pap Smear/03/2020COVID-19 Vaccine ( season)/, 11/07/2020Influenza Vaccine (#1)2025 06/19/2022, 03/27/2021, 03/30/2020, Additional history existsColonoscopy /olorectal Cancer Jfszyylgh68/08/2031Zoster Vaccines Ocfytrdlf62/28/2022, 06/14/2021HIB VaccinesAged OutNo longer eligible based on patient's age to complete this topicHPV VaccinesAged OutNo longer eligible based on patient's age to complete this topicIPV VaccinesAged OutNo longer eligible based on patient's age to complete this topicMeningococcal B VaccineAged OutNo longer eligible based on patient's age to complete this topicMeningococcal VaccineAged OutNo longer eligible based on patient's age to complete this topic Pneumococcal Vaccine: Pediatrics (0 to 5 Years) and At-Risk Patients (6 to 64 Years)Aged OutNo longer eligible based on patient's age to complete this topic Rotavirus VaccinesAged OutNo longer eligible based on patient's age to complete this topic Insurance Care Teams Team MemberRelationshipSpecialtyStart DateEnd Alexis Sal MD [address] [facility] [address] [address] [facility]09/24/22
--- OUTSIDE RECORDS SUMMARY | 2025-04-22 11:13 | XMS_ITS | Encounter Summary ---
Author Organization [facility] Address [address] [place] [address] Care Team Providers Care Yellow Pages Space Salesperson Name Role Phone Alexis Sal MD Primary Care Provider [phone] Encounter Details DateTypeDepartmentCare Team (Latest Contact Info)Vbnxqymgity74/02/2025Travel Social History Tobacco UseTypesPacks/DayYears UsedDateSmoking Tobacco: NeverSmokeless Tobacco: NeverAlcohol UseStandard Drinks/WeekCommentsYes0 (1 standard drink = 0.6 oz pure alcohol)1-2 drinks monthly or less, coffee 2-3 cups per dayComments UnknownSex and Gender InformationValueDate RecordedSex Assigned at BirthFemale 07/13/2023 8:41 AM ESTLegal DebLzjjlz29/15/2023 6:45 PM EDTGender IdentityFemale 07/13/2023 8:41 AM ESTSexual OrientationNot on filedocumented as of this encounter Plan of Treatment DateTypeDepartmentCare Team (Latest Contact Info)Ibvopvkzdgb49/22/2026 9:00 AM ESTOffice Visit [facility] [address] [facility] [place] [phone] Clint Anand DO [address] [place] [address] documented as of this encounter Visit Diagnoses Not on filedocumented in this encounter Care Teams Team MemberRelationshipSpecialtyStart DateEnd Date Alexis Sal MD PCP - General07/13/23documented as of this encounter
--- OUTSIDE RECORDS SUMMARY | 2025-04-22 11:13 | XMS_ITS | Encounter Summary ---
Author Organization [facility] Address [address] [place] [address] Care Team Providers Care Piggyback Clerk Name Role Phone Alexis Sal MD Primary Care Provider [phone] Encounter Details DateTypeDepartmentCare Team (Latest Contact Info)Ilftwytprrl51/03/2025amboo flowsheet [facility] [address] [place] [phone] Sunshine Lazo PTA Social History Tobacco UseTypesPacks/DayYears UsedDateSmoking Tobacco: NeverSmokeless Tobacco: NeverAlcohol UseStandard Drinks/WeekCommentsYes0 (1 standard drink = 0.6 oz pure alcohol)1-2 drinks monthly or less, coffee 2-3 cups per dayComments UnknownSex and Gender InformationValueDate RecordedSex Assigned at BirthFemale 07/13/2023 8:41 AM ESTLegal ZdeNtcuua47/15/2023 6:45 PM EDTGender IdentityFemale 07/13/2023 8:41 AM ESTSexual OrientationNot on filedocumented as of this encounter Plan of Treatment DateTypeDepartmentCare Team (Latest Contact Info)Lojghvuhgxr66/22/2026 9:00 AM ESTOffice Visit [facility] [address] [facility] [place] [address] Clint Anand, [address] [place] [place] [address] documented as of this encounter Visit Diagnoses Not on filedocumented in this encounter Care Teams Team MemberRelationshipSpecialtyStart DateEnd Date Alexis Sal MD PCP - General07/13/23documented as of this encounter
--- OUTSIDE RECORDS SUMMARY | 2025-04-22 11:13 | XMS_ITS | Encounter Summary ---
Author Organization [facility] Address [address] [place] [address] Care Team Providers Care Air Cargo Ground Crew Supervisor Name Role Phone Alexis Sal MD Primary Care Provider [phone] Encounter Details DateTypeDepartmentCare Team (Latest Contact Info)Cbwsomvbjrc30/31/2025amboo flowsheet [facility] [address] [place] [phone] Nicholas Farrell PTA Social History Tobacco UseTypesPacks/DayYears UsedDateSmoking Tobacco: NeverSmokeless Tobacco: NeverAlcohol UseStandard Drinks/WeekCommentsYes0 (1 standard drink = 0.6 oz pure alcohol)1-2 drinks monthly or less, coffee 2-3 cups per dayComments UnknownSex and Gender InformationValueDate RecordedSex Assigned at BirthFemale 07/13/2023 8:41 AM ESTLegal XodWpccad65/15/2023 6:45 PM EDTGender IdentityFemale 07/13/2023 8:41 AM ESTSexual OrientationNot on filedocumented as of this encounter Plan of Treatment DateTypeDepartmentCare Team (Latest Contact Info)Lmpaddahwmi11/22/2026 9:00 AM ESTOffice Visit [facility] [address] [place] [phone] Clint Anand DO [address] [place] [address] documented as of this encounter Visit Diagnoses Not on filedocumented in this encounter Care Teams Team MemberRelationshipSpecialtyStart DateEnd Date Alexis Sal MD PCP - General07/13/23documented as of this encounter
--- OUTSIDE RECORDS SUMMARY | 2025-04-22 11:13 | XMS_ITS | Encounter Summary ---
Author Organization [facility] Address [address] [place] [address] Care Team Providers Care Thermal Cutting Tracer Machine Operator Name Role Phone Alexis Sal MD Primary Care Provider [phone] Encounter Details DateTypeDepartmentCare Team (Latest Contact Info)Hynpziirrrl50/31/2025Travel Social History Tobacco UseTypesPacks/DayYears UsedDateSmoking Tobacco: NeverSmokeless Tobacco: NeverAlcohol UseStandard Drinks/WeekCommentsYes0 (1 standard drink = 0.6 oz pure alcohol)1-2 drinks monthly or less, coffee 2-3 cups per dayComments UnknownSex and Gender InformationValueDate RecordedSex Assigned at BirthFemale 07/13/2023 8:41 AM ESTLegal LmhIifsxn27/15/2023 6:45 PM EDTGender IdentityFemale 07/13/2023 8:41 AM ESTSexual OrientationNot on filedocumented as of this encounter Plan of Treatment DateTypeDepartmentCare Team (Latest Contact Info)Xgtquaalzyl56/22/2026 9:00 AM ESTOffice Visit [facility] [address] [facility] [phone] Clint Anand DO [address] [place] [address] documented as of this encounter Visit Diagnoses Not on filedocumented in this encounter Care Teams Team MemberRelationshipSpecialtyStart DateEnd Date Alexis Sal MD PCP - General07/13/23documented as of this encounter
--- OUTSIDE RECORDS SUMMARY | 2025-04-22 11:13 | XMS_ITS | Clinical Summary ---
Author Organization [facility] Address [address] [place] [address] Care Team Providers Care Manager Track Name Role Phone Alexis Sal MD Primary Care Provider [phone] Allergies No known active allergies Medications MedicationSigDispense QuantityRefillsLast FilledStart DateEnd DateStatus buPROPion XL (Wellbutrin XL) 150 MG 24 hr tablet 09/04/2022ctive cetirizine (ZyrTEC) 10 MG tablet 04/01/2023ctive cholecalciferol (Vitamin D-[address]) 25 MCG (1000 UT) tablet Take 2,000 Units by mouth in the morning.Active Protonix 40 MG EC tablet 1 (one) time each day at the same timeActive pramipexole (Mirapex) 1 MG tablet 12/25/2022ctive rosuvastatin (Crestor) 20 MG tablet 09/19/2022ctive fenofibrate micronized (Lofibra) 67 MG capsule Active Ferrous Sulfate (IRON PO) Take 1 tablet by mouth in the morning.Active Zepbound 10 MG/0.5ML solution auto-injector 04/02/2024ctive Multiple Vitamin (multivitamin) tablet Take 1 tablet by mouth DailyActive FIBER PO Take by mouthActive VITAMIN D PO Take by mouthActive Coenzyme Q10 (CO Q 10 PO) Take by mouthActive CeleBREX 200 MG capsule Take 200 mg by mouth06/30/2024tive gabapentin (Neurontin) 300 MG capsule Indications:S/P total knee arthroplasty, rightTake 1 capsule (300 mg) by mouth at bedtime 30 capsule 5Active pregabalin (Lyrica) 75 MG capsule Indications:S/P total knee arthroplasty, rightTake 1 capsule (75 mg) by mouth at bedtime 30 capsule 5Active pregabalin (Lyrica) 75 MG capsule Indications:S/P total knee arthroplasty, rightTake 1 capsule (75 mg) by mouth Daily 30 capsule 5Active Active Problems ProblemNoted DateDiagnosed DatePrimary osteoarthritis of right knee07/01/2024 Difficulty datukwi18/23/2025Acute postoperative pain of right knee07/01/2024 Status post right knee /23/2025 Encounters DateTypeDepartmentCare RezjKsazhsusrly41/12/2025 8:00 AM ESTTreatment [facility] [address] [place] [address] Nicholas Farrell, [employer] Iliotibial band syndrome of right side (Primary Dx)04/20/2025amboo flowsheet [facility] [address] [place] [address] Nicholas Farrell, SUPER[employer] 04/20/20250045Xxtuvw25/10/2025 8:00 AM ESTTreatment [facility] [address] [place] [address] Nicholas Farrell, SU[employer] Iliotibial band syndrome of right side (Primary Dx)04/18/2025amb flowsheet [facility] [address] [place] [address] Nicholas Farrell, SU[employer] 04/18/20253496Ljxrep24/05/2025 9:00 AM ESTTreatment [facility] [address] [place] [address] Nicholas Farrell, [employer] Iliotibial band syndrome of right side (Primary Dx)04/13/2025amb flowsheet [facility] [address] [place] [address] Nicholas Farrell, SUPER[employer] 04/13/20255428Qjlndh57/03/2025 8:30 AM ESTTreatment [facility] [address] [place] [address] Kelbley, Sunshine, [employer] Iliotibial band syndrome of right side (Primary Dx)04/11/2025amboo flowsheet [facility] [address] [place] [address] Kelbley, Sunshine, [employer] 04/11/20250693Seeznn08/02/7559Bqmxia03/31/2025 2:30 PM EDTTreatment [facility] [address] [place] [address] Bud Nicholas, SU[employer] Iliotibial band syndrome of right side (Primary Dx)04/08/2025amboo flowsheet [facility] [address] [place] [address] Nicholas Farrell, SUPER[employer] 04/08/20258749Ujtedl02/27/2025 10:00 AM EDTTreatment [facility] [address] [place] [address] Kelbley, Sunshine, [employer] Iliotibial band syndrome of right side (Primary Dx)04/04/2025 flowsheet [facility] [address] [place] [address] Kelbley, Sunshine, [employer] 04/04/20257931Uenqeu79/26/4509Igsxxv22/22/2025 12:30 PM EDTTreatment [facility] [address] [place] [address] Kelbley, Sunshine, [employer]PER[employer] Iliotibial band syndrome of right side (Primary Dx)03/30/2025amboo flowsheet [facility] [address] [place] [address] Kelbley, Sunshine, [employer]PER[employer] 03/30/20259764Mrmshb57/17/6252Okwzog87/15/2025 11:30 AM EDTEvaluation [facility] [address] [place] [address] Jada Cunha, PT Iliotibial band syndrome of right side (Primary Dx)03/23/2025Plan of Care Documentation [facility] [address] [place] [address] 03/23/2025amboo flowsheet [facility] [address] [place] [address] Jada Cunha, PT 03/23/20259432Tmskpu03/14/5610Rnxvpa87/30/2025Telephone [facility] [address] [place] [address] Chelsi Bernard RN from Last 3 Months Family History Medical HistoryRelationNameCommentsDrug abuseBrother 1Lee LillyMuscular dystrophyBrother 1Lee LillySuicidalityBrother 2Drug abuseDaughterAlyssa Leonila Alcohol abuseFatherHoward LillyHeart attackFatherHoward LillyHeart diseaseFather Mateusz LillyCancerMaternal GrandmotherLillie MeadorDiabetesMotherJo HaenelHeart diseaseMotherJo HaenelHypertensionMotherJo HaenelStrokeMotherJo Haenelbleeding ulcerMotherJo HaenelCancerMother's SisterMaeStrokePaternal GrandmotherHeart diseaseSisterTerry LillyStrokeSisterTerry LillyRelationNameStatusCommentsBrother 1Lee LillyDeceasedBrother 2DeceasedDaughterAlyssa ShopeAliveFatherHoward Nikki DeceasedMaternal GrandfatherDeceasedMaternal GrandmotherLillie MeadorDeceased MotherJo HaenelDeceasedMother's SisterMaePaternal GrandfatherDeceasedPaternal GrandmotherDeceasedSisterTerry LillyAliveSonAlive Social History Tobacco UseTypesPacks/DayYears UsedDateSmoking Tobacco: NeverSmokeless Tobacco: Never Tobacco Cessation:Counseling Given: Not Answered Alcohol UseStandard Drinks/WeekCommentsYes0 (1 standard drink = 0.6 oz pure alcohol)1-2 drinks monthly or less, coffee 2-3 cups per dayComments UnknownSex and Gender InformationValueDate RecordedSex Assigned at BirthFem[facility]ale 07/13/2023 8:41 AM ESTLegal NcpFvhhdi33/15/2023 6:45 PM EDTGender IdentityFemale 07/13/2023 8:41 AM ESTSexual OrientationNot on file Last Filed Vital Signs Vital SignReadingTime TakenCommentsBlood Mvfwjutk526/8206 10:03 AM EDT Vubrn8749 10:03 AM EDTTemperature--Respiratory Nwrf583111/19/2023 10:03 AM EDTOxygen Saturation--Inhaled Oxygen Concentration--Rmsvxu62.1 kg (156 lb 12.8 oz)12/27/2024 9:03 AM HIOJdvjdl932.5 cm (5' 2 )12/27/2024 9:03 AM EDTBody Mass Index28.6807 9:03 AM EDT Plan of Treatment DateTypeDepartmentCare Team (Latest Contact Info)Hdjedrghhde63/22/2026 9:00 AM ESTOffice Visit [facility] [address] [place] [address] Clint Anand, [address] [place] [address] Health MaintenanceDue DateLast DoneCommentsCT Pzglnbojfvoc1971FIT-DNA 1970FIT1970FOBT1970 4485Ckzjtabhyxbbc1971HPV/Wppcwb3101/13/2001 Cervical Cancer Mmaqqavby54/10/2023Pap Smear, 07/19/2019 COVID-19 Vaccine ( season)/, 11/07/2020Influenza Vaccine (#1)/10/2023, 06/19/2022, 03/27/2021, Additional history svguneYpgnxvpbi35/17/202609/2346Mfypzybgjmo95/08/203112/1Colorectal Cancer Jsovkptqz32/08/2031Pneumococcal Vaccine: Pediatrics (0 to 5 Years) and At-Risk Patients (6 to 64 Years)Aged OutNo longer eligible based on patient's age to complete this topic Insurance * Guarantor: Codi Cesar EAccount TypeRelation to PatientDate of BirthPhone Billing AddressPersonal/DbbpgtYipg1970 [facility] [place] [address] Care Teams Team MemberRelationshipSpecialtyStart DateEnd Date Alexis Sal MD PCP - General07/13/23
--- OUTSIDE RECORDS SUMMARY | 2025-04-22 11:13 | XMS_ITS | Encounter Summary ---
Author Organization [facility] Address [address] [place] [address] Care Team Providers Care Assembly Machine Feeder Name Role Phone Alexis Sal MD Primary Care Provider [phone] Encounter Details DateTypeDepartmentCare Team (Latest Contact Info)Afxrpdlstmx01/03/2025Travel Social History Tobacco UseTypesPacks/DayYears UsedDateSmoking Tobacco: NeverSmokeless Tobacco: NeverAlcohol UseStandard Drinks/WeekCommentsYes0 (1 standard drink = 0.6 oz pure alcohol)1-2 drinks monthly or less, coffee 2-3 cups per dayComments UnknownSex and Gender InformationValueDate RecordedSex Assigned at BirthFemale 07/13/2023 8:41 AM ESTLegal EmxNqkgzu46/15/2023 6:45 PM EDTGender IdentityFemale 07/13/2023 8:41 AM ESTSexual OrientationNot on filedocumented as of this encounter Plan of Treatment DateTypeDepartmentCare Team (Latest Contact Info)Cmokuuyzpad05/22/2026 9:00 AM ESTOffice Visit [facility] [address] [facility] [place] [address] Clint Anand DO [address] [place] [address] documented as of this encounter Visit Diagnoses Not on filedocumented in this encounter Care Teams Team MemberRelationshipSpecialtyStart DateEnd Date Alexis Sal MD PCP - General07/13/23documented as of this encounter
--- NOTE | 2025-04-22 11:14 | XR_ITS ---
The [address] [address] Patient Name: CARLY STEPHENS MRN: [id number] date: 1970 Sex: F Assigned Patient Location: [facility] Current Patient Location: [facility] Accession/Order Number: [id number] Exam Date: 04/22/2025 11:17 Report Date: 04/22/2025 11:59 At the request of: CRISTIAN MUÑOZ MD Procedure: XR cervical spine 2-3V CERVICAL SPINE - 3 views: COMPARISON: None CLINICAL HISTORY: Neck pain and stiffness for the past 4 months. No injury. AP, lateral and odontoid views were obtained. There is straightening of the normal cervical lordosis. No acute compression fractures are seen. There is a few millimeters of retrolisthesis of C5 on C6. There is disc space narrowing at that level. Endplate spurring and facet hypertrophy are seen. The atlantoaxial relationship is maintained. There is no prevertebral soft tissue swelling. XR/XR cervical spine 2-3V IMPRESSION: LOSS OF NORMAL CERVICAL LORDOSIS. DEGENERATIVE CHANGE, GREATEST AT C5-6. Impression dictated by: Alyssa Ambriz M.D. 04/22/2025 11:59 AM Dictation Location: [place] [address] Electronically authenticated by: [id number] Y Date: 04/22/2025 11:59
--- OUTSIDE RECORDS SUMMARY | 2025-04-22 11:14 | XMS_ITS | Clinical Summary ---
Author Organization [facility] Address [address] [place] [address] Phone Care Team Providers Care Senior Industrial Engineer Name Role Phone Alexis Sal MD Primary Care Provider [phone] Social History Tobacco UseTypesPacks/DayYears UsedDateSmoking Tobacco: Never Assessed CommentsUnknownSex and Gender InformationValueDate RecordedSex Assigned at Not on fileLegal TjmTywssm56/25/2022 4:01 PM ESTGender IdentityNot on fileSexual OrientationNot on file Plan of Treatment Health MaintenanceDue DateLast DoneCommentsCT Pzcosnhumycw1971Colonoscopy 1971Colorectal Cancer Pexjukmta1971FIT-DNA (Cologuard)1971FIT 1971HIV Lxqygaoun1971Lipid Panel1971 9460Tqhpqmeerzcxy1971 Yearly Adult Wamwajky1971MMR Vaccines (1 of 1 - Standard series)01/14/1972 Hepatitis C Nlndoblrh20/07/1989Hepatitis B Vaccines (1 of 3 - 19+ 3-dose series) 1990HPV/Isjqim6301/14/1992DTaP/Tdap/Td Vaccines (1 - Tdap)1993 Frnsmzdcq96/07/2011Cervical Cancer Thiqhsgzq03/25/2014Pap Smear01/31/2014 01/31/2011, 01/09/2010, 11/22/2008Pneumococcal Vaccine (1 of 1 - PCV)2021 Zoster Vaccines (1 of 2)2021Influenza Vaccine (#1)08/ COVID-19 Vaccine ( season)2025HIB VaccinesAged OutNo longer eligible based on patient's age to complete this topicHPV VaccinesAged OutNo longer eligible based on patient's age to complete this topicHepatitis A VaccinesAged OutNo longer eligible based on patient's age to complete this topic IPV VaccinesAged OutNo longer eligible based on patient's age to complete this topicMeningococcal VaccineAged OutNo longer eligible based on patient's age to complete this topicRotavirus VaccinesAged OutNo longer eligible based on patient's age to complete this topic Procedures Procedure NamePriorityDate/TimeAssociated DiagnosisCommentsCONVERTED REST ROOM ATTENDANT XZJPWUKJNtxcipj49/25/2011 12:00 AM EDT from Last 3 Months or Most Recently Relevant to Health Maintenance Results * CONVERTED REST ROOM ATTENDANT CYTOLOGY (01/31/2011 12:00 AM EDT)ComponentValueRef RangeTest MethodAnalysis TimePerformed AtPathologist SignaturePathology Report ADDENDUM ? Date of Procedure: ??01/31/2011 ? Pathologist: [facility], Cytology Date Reported: 02/08/2011 Date Received: ??01/31/2011 Submitting Physician: HONEY SHIN M.D. Attending Physician: HONEY SHIN M.D. ? Procedures/Addenda Present FINAL CYTOLOGICAL INTERPRETATION A. ??THINPREP PAP ECTOCERVICAL/ENDOCERVICAL: ? Specimen adequacy: ? SATISFACTORY FOR EVALUATION. ? Quality Indicator: Endocervical/transformation zone component is present. ? Quality Indicator: Partially obscuring inflammation. ? General Categorization: ? NEGATIVE FOR INTRAEPITHELIAL LESION OR MALIGNANCY. ? Ancillary Testing: ? An addendum report follows containing the HPV test results performed by the Molecular Diagnostics Laboratory at [facility]. ? This specimen has been analyzed by the [employer] Systemsp Imaging System (Justyle.), an automated imaging and review system, which assists the laboratory in evaluating cells on ThinPrep Pap tests. Following automated imaging, selected lugo from every slide were reviewed by a customer leader and/or pathologist. Electronically Signed Out By [facility], Cytology//CAN/ELEUTERIO By the signature on this report, the individual or group listed as making the Final Interpretation/Diagnosis certifies that they have reviewed this case. Educational Note: Cervical cytology is a screening procedure primarily for squamous cancers and precursors and has associated false-negative and false-positive results as evidenced by published data. ??Your patient's test should be interpreted in this context, together with patient's history and clinical findings. ??Regular sampling and follow-up of unexplained clinical signs and symptoms are recommended to minimize false negative results. Clinical History Date of Last Menstrual Period: ? 01/09/11 Previous Abnormal Cytology: Dysplasia: SEVERE Other Clinical Conditions: High Risk ? Automatic HPV Testing Ordered ??except for LSIL, HSIL, Carcinoma Source of Specimen A: THINPREP PAP ECTOCERVICAL/ENDOCERVICAL Addendum/Procedures: 1 HPV Addendum ? Date Ordered: ? 02/07/2011 ? Status: ??Signed Out ? Date Complete: ? 02/07/2011 ? Date Reported: ? 02/08/2011 ? Addendum Diagnosis SPECIMEN IS NEGATIVE FOR HIGH-RISK TYPE OF HUMAN PAPILLOMA VIRUS BY THE HYBRID CAPTURE 2 (HC2) HIGH-RISK HPV DNA TEST. THE HPV TYPES TESTED ARE: 16, 18, 31, 33, 35, 39, 45, 51, 52, 56, 58, 59, AND 68. ??NEGATIVE ASSAY RESULTS DO NOT COMPLETELY RULE OUT THE PRESENCE OF HPV TYPES: 16, 18, 31, 33, 35, 39, 45, 51, 52, 56, 58, 59, AND 68, PARTICULARLY AT VERY LOW CONCENTRATIONS. THIS TEST IS APPROVED BY THE [employer] [employer]. ??RESULTS OF THIS TEST SHOULD BE INTERPRETED IN CONJUNCTION WITH OTHER CLINICAL EVALUATION OF THE PATIENT AND WITH PAP TEST RESULTS. ??PLEASE REFER TO ASC CURRENT GUIDELINES FOR THE USE OF HPV DNA TESTING, RESULT INTERPRETATION, AND PATIENT MANAGEMENT. ??THIS TEST WAS PERFORMED BY THE MOLECULAR DIAGNOSTIC LABORATORY AT [facility], UNDER THE SUPERVISION OF DR. CECE FLORES MD. ??THE LAB IS CERTIFIED UNDER THE CLINICAL LABORATORY AMENDMENTS OF 1988 (CLIA-88) QUALIFIED TO PERFORM HIGH COMPLEXITY CLINICAL LABORATORY TESTING. Reference Range: Negative ? Electronically Signed Out By CECE FLORES MD/ELEUTERIO By the signature on this report, the individual or group listed as making the Final Interpretation/Diagnosis certifies that they have reviewed this case. [facility] Department of Pathology [address] [place] [address] COPATHCONVERTED FINAL DIAGNOSISA. ??THINPREP PAP ECTOCERVICAL/ENDOCERVICAL: ? Specimen adequacy: ? SATISFACTORY FOR EVALUATION. ? Quality Indicator: Endocervical/transformation zone component is present. ? Quality Indicator: Partially obscuring inflammation. ? General Categorization: ? NEGATIVE FOR INTRAEPITHELIAL LESION OR MALIGNANCY. ? Ancillary Testing: ? An addendum report follows containing the HPV test results performed by the Molecular Diagnostics Laboratory at [facility]. ? [facility] COPATHCONVERTED DIAGNOSIS COMMENTThis specimen has been analyzed by the Collective HealthPrep Imaging System (Justyle.), an automated imaging and review system, which assists the laboratory in evaluating cells on ThinPrep Pap tests. Following automated imaging, selected lugo from every slide were reviewed by a customer leader and/or pathologist. [facility] COPATHCONVERTED ADDENDUM DIAGNOSISSPECIMEN IS NEGATIVE FOR HIGH-RISK TYPE OF HUMAN PAPILLOMA VIRUS BY THE HYBRID CAPTURE 2 (HC2) HIGH-RISK HPV DNA TEST. THE HPV TYPES TESTED ARE: 16, 18, 31, 33, 35, 39, 45, 51, 52, 56, 58, 59, AND 68. ??NEGATIVE ASSAY RESULTS DO NOT COMPLETELY RULE OUT THE PRESENCE OF HPV TYPES: 16, 18, 31, 33, 35, 39, 45, 51, 52, 56, 58, 59, AND 68, PARTICULARLY AT VERY LOW CONCENTRATIONS. THIS TEST IS APPROVED BY THE [employer] AND [employer]. ??RESULTS OF THIS TEST SHOULD BE INTERPRETED IN CONJUNCTION WITH OTHER CLINICAL EVALUATION OF THE PATIENT AND WITH PAP TEST RESULTS. ??PLEASE REFER TO [facility] CURRENT GUIDELINES FOR THE USE OF HPV DNA TESTING, RESULT INTERPRETATION, AND PATIENT MANAGEMENT. ??THIS TEST WAS PERFORMED BY THE MOLECULAR DIAGNOSTIC LABORATORY AT [facility], UNDER THE SUPERVISION OF DR. CECE FLORES MD. ??THE LAB IS CERTIFIED UNDER THE CLINICAL LABORATORY AMENDMENTS OF 1988 (CLIA-88) QUALIFIED TO PERFORM HIGH COMPLEXITY CLINICAL LABORATORY TESTING. Reference Range: Negative [facility] COPATHCONVERTED FINAL REPORT PDF LINK TO COPY AND PASTE \copathshare\copath\PDF [id number].pdfJEFFERSON [facility]SD[facility]ITAL COPATHSpecimen (Source) Anatomical Location / LateralityCollection Method / VolumeCollection Time Received TimeTPP ECTO/ENDO 8:55 PM EDT Narrative Authorizing ProviderResult TypeResult StatusHoney Shin MDLAB CYTOLOGY ORDERABLESFinal ResultPerforming OrganizationAddressCity/State/ZIP CodePhone Number [facility] COPATH [address] [place] [address] from Last 3 Months or Most Recently Relevant to Health Maintenance Insurance Care Teams Team MemberRelationshipSpecialtyStart DateEnd Date Alexis Sal MD [address] [place] [address] [facility]02/02/09
== END 2025-04-22 11:08 | disposition home or self-care (01) ==
LOC: RAD 11:09
PROVIDERS: PCP Family Medicine; Visit Provider Family Medicine
DX: M54.2 Cervicalgia (principal)
CPT/HCPCS: 72040

== ENCOUNTER 2025-05-17 08:24 | Outpatient (OUT) | payer OTHER, SELFPAY ==
--- NOTE | 2025-05-17 08:27 | MR_ITS ---
The [address] [address] Patient Name: CARLY STEPHENS MRN: [id number] date: 1970 Sex: F Assigned Patient Location: MRI Current Patient Location: MRI Accession/Order Number: [id number] Exam Date: 05/17/2025 08:45 Report Date: 05/17/2025 16:20 At the request of: CRISTIAN MUÑOZ MD Procedure: MR cervical spine wo con MR cervical spine wo con 05/17/2025 11:07 AM SIGNS AND SYMPTOMS: Neck pain radiating into shoulders PROTOCOL: Multiplanar multisequence MR images of the cervical spine without IV contrast COMPARISON: None. FINDINGS: The bones of the cervical spine are in anatomic alignment. There is preservation of vertebral body heights. There is mild disc height loss at C4-C5 with moderate disc height loss at C5-C6. The marrow signal is within normal limits. The cord is normal in signal. No epidural or paraspinous fluid collection is appreciated. The visualized paraspinous soft tissues are within normal limits. The prevertebral soft tissues are within normal limits. Mucosal thickening is noted in the ethmoid air cells and maxillary sinuses. Incidental note is made of an intermediate signal intensity structure in the midline standing inferior from the hyoid suggesting a thyroglossal duct cyst. This measures 1.4 x 1.2 x 1.9 cm. At C2-C3: There is a normal disc, central canal, and neural foramen. At C3-C4: There is a normal disc, central canal, and neural foramen. At C4-C5: There is a normal disc, central canal, and neural foramen. At C5-C6: There is a broad-based disc bulge without to joint spurring and facet hypertrophy. There is mild bilateral neural foraminal narrowing with mild spinal canal narrowing. At C6-C7: There is a normal disc, central canal, and neural foramen. At C7-T1: There is a normal disc, central canal, and neural foramen. MR/MR cervical spine wo con IMPRESSION: No cord compression or cord signal abnormality. At C5-C6: There is a broad-based disc bulge without to joint spurring and facet hypertrophy. There is mild bilateral neural foraminal narrowing with mild spinal canal narrowing. Incidental note is made of an intermediate signal intensity structure in the midline standing inferior from the hyoid suggesting a thyroglossal duct cyst. This measures 1.4 x 1.2 x 1.9 cm. Impression dictated by: Tristen La M.D. 05/17/2025 4:20 PM Dictation Location: [place] [address] Electronically authenticated by: [id number] Y Date: 05/17/2025 16:20
--- OUTSIDE RECORDS SUMMARY | 2025-05-17 08:29 | XMS_ITS | CCD ---
Author Organization [facility] CliniSyid Care Team Providers Care Supervisor Burling And Joining Name Role Phone SARAH BURKS Referring Unavailable CRISTIAN MUÑOZ Primary Care Unavailable Cristian Muñoz Primary Care Provider [phone] Mila Akers Unavailable Bernarda Mcneal Unavailable CATALINAY ., DR ESPINOZA Admitting Unavailable HOY ., DR ESPINOZA Attending Unavailable HOY ., DR ESPINOZA Primary Care Unavailable HOY ., DR ESPINOZA Consulting Unavailable ZIEBER, DR BETH Walters Consulting Unavailable HOY ., DR ESPINOZA Admitting Unavailable HOY ., DR ESPINOZA Attending Unavailable HOY ., DR ESPINOZA Primary Care Unavailable HOY ., DR ESPINOZA Consulting Unavailable FARRAH GAINES Consulting Unavailable HOY ., DR ESPINOZA Admitting Unavailable HOY ., DR ESPINOZA Attending Unavailable HOY ., DR ESPINOZA Primary Care Unavailable HOY ., DR ESPINOZA Consulting Unavailable MISC, DR GRIGGS Admitting Unavailable MISC, DR GRIGGS Attending Unavailable HOY ., DR ESPINOZA Primary Care Unavailable CAMILA, DR JADA Matamoros Consulting Unavailable MISC, DR GRIGGS Consulting Unavailable HOY ., DR ESPINOZA Admitting Unavailable HOY ., DR ESPINOZA Attending Unavailable HOY ., DR ESPINOZA Primary Care Unavailable HOY ., DR ESPINOZA Consulting Unavailable WEST, DR JADA Matamoros Consulting Unavailable JOSE, DR MARISELA Brown Admitting Unavailable JOSE, DR MARISELA Brown Attending Unavailable HOY ., DR ESPINOZA Primary Care Unavailable HOY ., DR ESPINOZA Admitting Unavailable HOY ., DR ESPINOZA Attending Unavailable HOY ., DR ESPINOZA Primary Care Unavailable HOY ., DR ESPINOZA Consulting Unavailable ZIEBER, DR BETH Walters Consulting Unavailable HOY ., DR ESPINOZA Admitting Unavailable HOY ., DR ESPINOZA Attending Unavailable HOY ., DR ESPINOZA Primary Care Unavailable HOY ., DR ESPINOZA Consulting Unavailable Mitchel Baeza Unavailable Shivani Coatsn Unavailable MD Cristian Muñoz Primary Care Provider MD Sandra Jules Attending Provider [phone] DO Mitchel Baeza Attending Provider Cristian Muñoz MD Primary Care Provider MD Cristian Muñoz Primary Care Provider DO Mitchel Baeza Attending Provider [phone] ABILIO Florian Attending Provider MARISELA GARCIA Attending Unavailable MARISELA GARCIA Attending Unavailable MARISELA GARCIA Attending Unavailable KETAN FRANCIS Referring Unavailable NO FAMILY, PHYSICIAN Primary Care Provider Unava ilable Anai, DO Mookie Brown Attending Provider MD Cristian Muñoz Primary Care Provider NO FAMILY, PHYSICIAN Primary Care Provider Unava [...] Unavailable Brown, DO Clint A Referring Unavailable Cristian Muñoz MD Primary Care Provider Cristian Muñoz MD Primary Care Provider Cristian Muñoz MD Primary Care Provider Mookie Ospina Admitting Unavailable Mookie Ospina Attending Unavailable Cristian Muñoz Primary Care Unavailable Sandra Jules Admitting Unavailable Sandra Jules Attending Unavailable Hoy, Cristian M Primary Care Unavailable Sandra Jules Attending Unavailable Hoy, Cristian M Primary Care Unavailable Sandra Jules Admitting Unavailable Cristian Muñoz MD Primary Care Provider Cristian Muñoz MD Primary Care Provider [phone] Sandra Jules MD Attending Provider Yousuf Claudio RD Attending Provider Unavailable Cristian Muñoz MD Primary Care Provider [phone] Sandra Jules MD Attending Provider Cristian Muñoz MD Attending Provider DARRON BOND Attending Unavailable HOY, CRISTIAN M Referring Unavailable HOY, CRISTIAN M Primary Care Unavailable HOY, CRISTIAN M Referring Unavailable HOY, CRISTIAN M Primary Care Unavailable HOY, CRISTIAN M Referring Unavailable HOY, CRISTIAN M Primary Care Unavailable DEISY SIMMONS Referring Unavailable HOY, CRISTIAN M Primary Care Unavailable HOY, CRISTIAN M Referring Unavailable HOY, CRISTIAN M Primary Care Unavailable ZAHIRA TIM Attending Unavailable HOY, CRISTIAN M Primary Care Unavailable DARRON BOND Referring Unavailable Cristian Muñoz MD Primary Care Provider [phone] Sandra Jules MD Attending Provider Yousuf Claudio RD Attending Provider Unavailable Cristian Muñoz MD Primary Care Provider [phone] Sandra Jules MD Attending Provider SIMI ARAGON Attending Unavailable CHUYITA, CLINT A Referring Unavailable SIMI ARAGON Attending Unavailable STEPHAN BOOGIESON A Referring Unavailable SIMI ARAGON Attending Unavailable BROWN, CLINT A Referring Unavailable BROWN, CLINT A Referring Unavailable CHUYITA, CLINT A Attending Unavailable SIMI ARAGON Attending Unavailable BROWN, CLINT A Referring Unavailable BROWN, CLINT A Referring Unavailable BROWN, CLINT A Attending Unavailable BROWN, CLINT A Referring Unavailable BROWN, CLINT A Referring Unavailable BROWN, CLINT A Attending Unavailable BROWN, CLINT A Referring Unavailable BROWN, CLINT A Referring Unavailable BROWN, CLINT A Attending Unavailable JADA CUNHA Attending Unavailable BROWN, CLINT A Referring Unavailable KELANDREATiffany, SUNSHINE Attending Unavailable BROWN, CLINT A Referring Unavailable KELBLEY, SUNSHINE Attending Unavailable BROWN, CLINT A Referring Unavailable BRSTUART, MELLISA Attending Unavailable BROWN, CLINT A Referring Unavailable ANTHONYANDREAY, SUNSHINE Attending Unavailable BROWN, CLINT A Referring Unavailable BRINK, MELLISA Attending Unavailable BROWN, CLINT A Referring Unavailable BRINK, MELLISA Attending Unavailable BROWN, CLINT A Referring Unavailable BRSTUART, MELLISA Attending Unavailable BROWN, CLINT A Referring Unavailable BROWN, CLINT A Attending Unavailable BROWN, CLINT A Referring Unavailable JADA CUNHA Attending Unavailable BROWN, CLINT A Referring Unavailable Allergies Allergy ClassificationReported Allergen(s)Allergy TypeDate of OnsetReaction(s) Facility (3 sources)No Known Medication Allergies; Translations: [No Known Medication Allergies]Propensity to adverse reactions (disorder)[facility] Repository Medications Current Medications MedicationDrug Class(es)DatesSig (Normalized)Sig (Original)0.5 ML semaglutide 0.5 MG/ML Auto-Injector [Wegovy] (3 sources)Start: 08-30-7461udwpga 0.25 mg by subcutaneous injection every week Wegovy 0.25 MG/0.5ML 0.25 mg Subcutaneous Once weekly for 30 days Dec, Active0.5 ML tirzepatide 20 MG/ML Auto-Injector [Zepbound] (2 sources)Start: 88-53-7983Vkrcscuj 10 mg/0.5 mL subcutaneous solution SubCutaneous, qWeek, , Refills(s) 0 Start Date: 06/17/24 Status: Ordered acetaminophen 325 mg oral tablet (20 sources)Start: 12-04-2023 End: 66-33-7553cmgh 1 tablet by mouth every six hours as needed for pain Acetaminophen 325 mg tablet Active 325 MG PO Q6H as needed for Pain 30 0 December 03, 2023 11:00pm DONOT RECONCILE UNTIL DOS 12/05/23 TO BE USED POST OP Complies with drug therapyacetaminophen 325 mg / HYDROcodone bitartrate 5 mg oral tablet (18 sources)Opioid AgonistStart: 07-15-2024 End: 21-85-3859bmni 1-2 tablets by mouth every four hoursHYDROcodone- acetaminophen ([place]) 5-325 MG tablet Indications: S/P total knee arthroplasty, right Take 1-2 tablets by mouth every 4 (four) hours if needed (pain) for up to 7 days 40 tablet 502/ ActiveStart: 12-04-2023 End: 76-73-3228nxru 1 tablet by mouth every six hours as needed for pain Hydrocodone-Acetaminophen 5-325 mg tablet Discontinued 1 TAB PO Q6H as needed for Pain 12 3 0 December 04, 2023 March 08, 2024 6:37am Status post arthroscopy of right knee Other specified postprocedural states DO NOT RECONCILE UNTIL DOS 12/05/23 TO BE USED POST OPacetaminophen 325 mg / oxyCODONE hydrochloride 5 mg oral tablet (1 source)Opioid AgonistStart: 83-32-4724Tzjmhkqu 5 mg-325 mg oral tablet See Instructions, 40 tab(s), Refill(s) 0, 1-2 tab(s) Oral q4hr, [facility]/pharmacy #[id number], 159, cm, 06/18/24 7:16:00 EST, Height/Length Dosing, 77.5, kg, 06/18/24 7:16:00 EST, Weight Dosing Start Date: 06/30/24 Status: Orderedazithromycin 250 mg oral tablet (1 source)Macrolide AntimicrobialStart: 58-67-4710utwujovnboum (ZITHROMAX) 250 MG tablet Indications: Acute frontal sinusitis, recurrence not specified Take 2 tabs (500 mg) on Day 1, and take 1 tab (250 mg) on days 2 through 5. 1 packet 0 07/19/2019Activecalcium polycarbophil 625 mg oral tablet (2 sources)Start: 88-66-1788rqmm 1 tablet by mouth once dailyFiber Tabs 625 mg, Oral, Daily, Refills(s) 0, Prophylaxis Start Date: 06/17/24 Status: Ordered cefdinir (1 source)Cephalosporin AntibacterialStart: 05-79-2832auxfkima Oral, Refills(s) 0, Infection or prophylaxis for antibiotics Start Date: 06/17/24 Status: Ordered cetirizine hydrochloride 10 mg oral tablet (20 sources)Histamine-1 Receptor AntagonistStart: 07-12-2019 End: 79-20-9786bewjlkvmcw (ZyrTEC) 10 MG tablet 04/01/2023 ActiveCetirizine HCl Activecholecalciferol 0.05 mg oral capsule (20 sources)Vitamin DStart: 46-35-7568lshe 1 capsule by mouth once daily in the morningCholecalciferol (Vitamin D3) 50 mcg (2,000 unit) capsule Active 50 MCG PO Every morning July 30, 2023 12:00am Complies with drug therapy cholecalciferol (Vitamin D-[address]) 25 MCG (1000 UT) tablet Take 2,000 Units by mouth in the morning. Activetake 2 tablets by mouth in the morning cholecalciferol (VITAMIN D3) 1,000 units tablet Take 2 tablets (2,000 Units total) by mouth in the morning. Activetake 1 capsule by mouth every twenty-four hoursVitamin D3 50 MCG (2000 UT) 1 capsule Orally Once a day ActiveCoenzyme Q10 (CO Q 10 PO) (20 sources)Coenzyme Q10 (CO Q 10 PO) Take by mouth CizmaoZnW44 100 MG (10 sources)CoQ10 100 MG as directed Orally Activediclofenac sodium 75 mg delayed release oral tablet (16 sources)Nonsteroidal Anti-inflammatory Drug End: 17-79-6636ynlm 1 tablet by mouth once daily as neededdiclofenac (VOLTAREN) 75 mg EC tablet Take 1 tablet (75 mg total) by mouth daily as needed. 09/27/2024 Discontinued (Therapy completed)docusate sodium 100 mg oral capsule (1 source)Start: 12-24-9286zris 1 capsule by mouth twice daily as needed for constipationColace 100 mg Cap 100 mg = 1 cap(s), Oral, BID, PRN for constipation, # 20 cap(s), Refills(s) 0, Pharmacy: [facility]/pharmacy #[id number], 159, cm, 06/18/24 7:16:00 EST, Height/Length Dosing, 77.5, kg, 06/18/24 7:16:00 EST, Weight Dosing Start Date: 06/30/24 Status: OrderedEstradiol (2 sources)EstrogenEstradiol Activeeye promise restore (16 sources)Start: 12-80-1383ljlr 1 tablet by mouth once daily in the morningeye promise restore Active 1 TAB PO Every morning November 30, 2023 11:00pm Complies with drug therapyStart: 57-55-4109wnzi 1 tablet by mouth once daily in the morningStart: 47-89-4997genn 1 tablet by mouth once daily in the morningStart: 90-14-5224okhu 1 tablet by mouth once daily in the morningeynational jewish health restore Active 1 TAB PO Every morning November 30, 2023 11:00pmStart: 62-81-2134scmt 1 tablet by mouth once daily in [facility] restore Active 1 TAB PO Every morning December 01, 2023 12:00amStart: 09-68-8688hotn 1 tablet by [facility] Active 1 TAB PO Daily December 01, 2023 12:00am fenofibrate 67 mg oral capsule (20 sources)Peroxisome Proliferator Receptor alpha AgonistStart: 12-30-2023 End: 00-24-1654Danqupzhzzq Micronized 67 mg capsule Active 67 MG PO March 07, 2024 11:00pm Complies with drug therapyFeroSul 325 mg oral tablet (2 sources)Start: 94-83-9887rolq 1 tablet by mouth once dailyFeroSul 325 mg oral tablet 325 mg = 1 tab(s), Oral, Daily, Refills(s) 0 Start Date: 04/13/21 Status: Orderedferrous sulfate 325 mg oral tablet (20 sources)Start: 95-58-2547ehnl 1 tablet by mouth once daily in the morning Ferrous Sulfate 325 mg (65 mg iron) tablet Active 325 MG PO Every morning July 30, 2023 12:00am Complies with drug therapytake 1 tablet by mouth in the morningFerrous Sulfate (IRON PO) Take 1 tablet by mouth in the morning. ActiveFiber (20 sources)FIBER PO Take by mouth Activefluticasone propionate 0.05 mg/actuat metered dose nasal spray (8 sources)Corticosteroid End: 43-85-7286oswi 1 spray(s) nasal route in the morningfluticasone propionate (FLONASE) 50 mcg/actuation nasal spray Administer 1 spray into each nostril in the morning. 09/27/2024 Discontinued (Therapy completed)gabapentin 300 mg oral capsule (20 sources)Anti-epileptic AgentStart: 07-85-4674qdwt 1 capsule by mouth at bedtimegabapentin (Neurontin) 300 MG capsule Indications: S/P total knee arthroplasty, right Take 1 capsule (300 mg) by mouth at bedtime 30 capsule 08/12/2024 ActiveStart: 06-30-2024 End: 36-57-6766xspt 1 capsule by mouth three times dailygabapentin 300 mg Cap 300 mg = 1 cap(s), Oral, TID, X 14 day(s), # 42 cap(s), Refills(s) 0, Pharmacy: [facility]/pharmacy #[id number], 159, cm, 06/18/24 7:16:00 EST, Height/Length Dosing, 77.5, kg, 06/18/24 7:16:00 EST, Weight Dosing Start Date: 06/30/24 Stop Date: 07/14/24 Status: OrderedStart: 01-21-2023 End: 20-89-4437ytnr 1 capsule by mouth once dailygabapentin (NEURONTIN) 300 mg capsule Indications: Menopause Take 1 capsule (300 mg total) by mouthnightly. 30 capsule 11 01/21/2023 09/24/2023 Discontinuedgemfibrozil 600 mg oral tablet (3 sources)Peroxisome Proliferator Receptor alpha AgonistStart: 06-28-2019 gemfibrozil (LOPID) 600 MG tabletGemfibrozil ActiveIron (2 sources)Iron Activeketorolac tromethamine 10 mg oral tablet (13 sources)Nonsteroidal Anti-inflammatory Drug, Cyclooxygenase InhibitorStart: 06-30-2024 End: 05-55-0402gzkn 1 tablet by mouth every eight hoursketorolac 10 mg Tab 10 mg = 1 tab(s), Oral, q8hr, X 3 day(s), # 9 tab(s), Refills(s) 0, Pharmacy: [facility]/pharmacy #[id number], 159, cm, 06/18/24 7:16:00 EST, Height/Length Dosing, 77.5, kg, 06/18/24 7:16:00 EST, Weight Dosing Start Date: 06/30/24 Stop Date: 07/03/24 Status: OrderedStart: 95-09-4434Oavmljh per 15 mg May, 60 mgmagnesium oxide 400 mg oral tablet (18 sources) End: 87-35-8802qnpp 0.5 tablet by mouth in the morningmagnesium oxide (MAGOX) 400 mg tablet Take 0.5 tablets (200 mg total) by mouth in the morning. 09/27 Discontinued (Therapy completed) End: 42-10-8686yidawtgta oxide (Mag-Ox) 400 MG tablet Take 200 mg by mouth in the morning. 06/17/2024 Discontinued(Therapy completed)take 1 tablet by mouth in the morningmagnesium oxide (MAGOX) 400 mg tablet Take 1 tablet (400 mg total) by mouth in the morning. ActiveMultiple Vitamin (multivitamin) tablet (20 sources)take 1 tablet by mouth once dailyMultiple Vitamin (multivitamin) tablet Take 1 tablet by mouth Daily ActiveMultiple Vitamins-Iron (MULTI- VITAMIN/IRON PO) (1 source)Multiple Vitamins-Iron (MULTI-VITAMIN/IRON PO) Take by mouth 0 Active rmtivart-ftgl-JF-calcium &mins (THERAGRAN-M) 9 mg iron-400 mcg tablet (18 sources)qrlczovj-sges-UD-calcium &mins (THERAGRAN-M) 9 mg iron-400 mcg tablet Take 1 tablet by mouth inthe morning. Zwfjseyfnfzypb-zifs-FV-calcium &mins (THERAGRAN-M) 9 mg iron-400 mcg tablet Take 1 tablet by mouth inthe morning. 0 ActiveMultivitamin preparation (20 sources)Start: 98-57-2034xgzm 1 tablet by mouth once daily in the morning Multivitamin Active 1 TAB PO Every morning July 30, 2023 1:00amStart: 91-29-3455gbwk 1 tablet by mouth once dailyMultivitamin Active 1 TAB PO Daily July 30, 2023 1:00amtake 1 tablet by mouth once dailyMultivitamin - 1 tablet Orally Once a day ActiveMultivitamin ActiveMultivitamin tablet (6 sources)Start: 64-40-3709erhs 1 tablet by mouth once daily in the morning Multivitamin tablet Active 1 TAB PO Every morning July 30, 2023 12:00am Complies with drug therapyStart: 74-39-9951iqtr 1 tablet by mouth once daily in the morningStart: 49-06-9002vhvk 1 tablet by mouth once daily in the morning Start: 32-10-9589flza 1 tablet by mouth once daily in the morningMultivitamin tablet Active 1 TAB PO Every morning July 30, 2023 12:00ampantoprazole 40 mg delayed release oral tablet (20 sources)Proton Pump InhibitorStart: 05-28-7387agaf 1 tablet by mouth once daily in the morningPantoprazole (Protonix) 40 mg tablet,delayed release (DR/EC) Active 40 MG PO Every morning 2023 12:00am Complies with drug therapyProtonix ActivePARoxetine hydrochloride 20 mg oral tablet (1 source)Serotonin Reuptake InhibitorStart: 05-03-7406wcdc 1 tablet by mouth once daily in the morningPARoxetine (PAXIL) 20 MG tablet Indications: Menopausal symptom Take 1 tablet by mouth every morning 90 tablet 4 07/19/2019 Active phenazopyridine hydrochloride 100 mg oral tablet (3 sources)Start: 90-22-9922Zeovckjb 100 mg Tab Refills(s) 0, Urinary discomfort Start Date: 06/17/24 Status: OrderedStart: 03-22-2024 End: 86-15-3399Ekyxtzzr 200 MG tablet every 8 (eight) hours 03/22/2024 04/15/2024 Discontinued (Therapy completed)pregabalin 75 mg oral capsule (20 sources)Start: 09-23-2024 End: 42-22-4595gqni 1 capsule by mouth once dailypregabalin (Lyrica) 75 MG capsule Indications: S/P total knee arthroplasty, right Take 1 capsule (75 mg) by mouth Daily 30 capsule 1 12/09/2024 ActiveProgesterone (2 sources)ProgesteroneProgesterone ActiveQUEtiapine 50 mg oral tablet (7 sources)Atypical AntipsychoticStart: 12-31-2022 End: 57-14-7008OMImlyoivc (SEROquel) 50 mg tablet 12/31/2022 09/24/2023 Discontinuedrosuvastatin calcium 20 mg oral tablet (20 sources)HMG-CoA Reductase InhibitorStart: 15-94-1410dvihdhtekgnp (CRESTOR) 20 mg tablet TAKE 1 TABLET IN THE EVENING 90 tablet 1 04/06/2025 ActiveStart: 09-19-2022 End: 67-63-1723dqetzlsjkyxs (Crestor) 20 MG tablet 09/19/2022 ActiveCrestor Activesulfamethoxazole 800 mg / trimethoprim 160 mg oral tablet (1 source)Dihydrofolate Reductase Inhibitor Antibacterial, Sulfonamide AntimicrobialStart: 06-30-2024 End: 57-71-5910Jrfneyw D.S. 800 mg-160 mg Tab 1 tab(s), Oral, BID for 7 day(s), 14 tab(s), Refill(s) 0, [facility]/pharmacy #[id number], 159, cm, 06/18/24 7:16:00 EST, Height/Length Dosing, 77.5, kg, 06/18/24 7:16:00 EST, Weight Dosing Start Date: 06/30/24 Stop Date: 07/07/24 Status: OrderedTirzepatide (Weight Loss) (20 sources)Start: 03-80-7066Ivkbjxgcqhc (Weight Loss) 10 mg/0.5 mL pen injector Active 10 MG SUBCUT every week 2 2 April 19, 2025 9:47am weight loss Complies with drug therapyStart: 01-18-2025 End: 95-90-5368Wdybatumcuz (Weight Loss) 10 mg/0.5 mL pen injector Discontinued 10 MG SUBCUT every week 2 2 2024 7:55am April 19, 2025 9:47am weight lossStart: 11-62-6423Crnjf: 66-25-9289Mvghd: 91-27-4524Ddmxbcphzak (Weight Loss) 10 mg/0.5 mL pen injector Active 10 MG SUBCUT every week 2 January 18, 2025 8:55am Complies with drug therapyStart: 10-26-2024 End: 20-45-7391Lmsdqmatdqf (Weight Loss) 10 mg/0.5 mL pen injector Discontinued 10 MG SUBCUT every week 2 2 October 26, 2024 8:01am January 18, 2025 7:55am weight lossStart: 10-26-2024 End: 27-99-7312Apdylkojswb (Weight Loss) 10 mg/0.5 mL pen injector Discontinued 10 MG SUBCUT every week 2 October 26, 2024 9:01am January 18, 2025 8:55amStart: 29-05-2325Uzlgb: 08-03-2024 End: 10-82-6135Gpcexyxarxj (Weight Loss) 10 mg/0.5 mL pen injector Discontinued 10 MG SUBCUT every week 2 2 August 03, 2024 9:17am October 26, 2024 8:01am weight lossStart: 08-03-2024 End: 83-93-9534Puzztuzwlnz (Weight Loss) 10 mg/0.5 mL pen injector Discontinued 10 MG SUBCUT every week 2 2024 10:17am October 26, 2024 9:01amStart: 86-51-3983Pmhblqctegv (Weight Loss) 10 mg/0.5 mL pen injector Active 10 MG SUBCUT every week 2 July 9:17amStart: 05-20-2024 End: 68-34-5355Tzrkkdnhmge (Weight Loss) 10 mg/0.5 mL pen injector Discontinued 10 MG SUBCUT every week 2 May 20, 2024 12:48pm August 03, 2024 9:17am weight lossStart: 05-20-2024 End: 11-15-1025Ftvfwvqtaaa (Weight Loss) 10 mg/0.5 mL pen injector Discontinued 10 MG SUBCUT every week 2 2023 1:48pm August 03, 2024 10:17am Start: 05-20-2024 End: 38-83-6813Msflkgaqffo (Weight Loss) 10 mg/0.5 mL pen injector Discontinued 10 MG SUBCUT every week 2 2023 12:48pm August 03, 2024 9:17am Start: 05-10-2024 End: 99-50-3751Jwatynypwbb (Weight Loss) 10 mg/0.5 mL pen injector Discontinued 10 MG SUBCUT every week 2 2 May 10, 2024 9:22am May 20, 2024 12:48pm weight lossStart: 05-10-2024 End: 21-29-4731Qbapnwpztlb (Weight Loss) 10 mg/0.5 mL pen injector Discontinued 10 MG SUBCUT every week 2 2023 10:22am May 20, 2024 1:48pm Start: 05-10-2024 End: 52-02-7009Omrrwlyijsp (Weight Loss) 10 mg/0.5 mL pen injector Discontinued 10 MG SUBCUT every week 2 2023 9:22am May 20, 2024 12:48pm Start: 04-30-2024 End: 58-12-4474Usmantyhphi (Weight Loss) 10 mg/0.5 mL pen injector Discontinued 10 MG SUBCUT every week 2 2 April 30, 2024 10:26am May 10, 2024 9:22am weight lossStart: 04-30-2024 End: 47-99-9255Busfnnuillk (Weight Loss) 10 mg/0.5 mL pen injector Discontinued 10 MG SUBCUT every week 2 2023 11:26am May 10, 2024 10:22am Start: 04-30-2024 End: 04-49-4084Tebpyrsbhye (Weight Loss) 10 mg/0.5 mL pen injector Discontinued 10 MG SUBCUT every week 2 2023 10:26am May 10, 2024 9:22am Start: 03-12-2024 End: 88-49-8882Qrbdtwhtwhl (Weight Loss) 10 mg/0.5 mL pen injector Discontinued 10 MG SUBCUT every week 2 1 March 12, 2024 9:47am April 30, 2024 10:26am weight lossStart: 03-12-2024 End: 06-70-5192Aidzfqtmhva (Weight Loss) 10 mg/0.5 mL pen injector Discontinued 10 MG SUBCUT every week 2 March 12, 2024 10:47am April 30, 2024 11:26am Start: 03-12-2024 End: 83-03-1919Ouodicstfgh (Weight Loss) 10 mg/0.5 mL pen injector Discontinued 10 MG SUBCUT every week 2 March 12, 2024 9:47am April 30, 2024 10:26am Start: 33-12-6719magfkb 10 mg by subcutaneous injection every weekTirzepatide (Weight Loss) Active 10 MG SUBCUT every week 2 March 12, 2024 10:47amStart: 02-26-2024 End: 23-24-4103Hxzncjspivi (Weight Loss) 10 mg/0.5 mL pen injector Discontinued 10 MG SUBCUT every week 2 February 26, 2024 3:35pm March 12, 2024 9:48am weight lossStart: 02-26-2024 End: 90-64-4843Domlnjutkhh (Weight Loss) 10 mg/0.5 mL pen injector Discontinued 10 MG SUBCUT every week 2 February 26, 2024 4:35pm March 12, 2024 10:48am Start: 02-26-2024 End: 07-35-5825Swthqbuenas (Weight Loss) 10 mg/0.5 mL pen injector Discontinued 10 MG SUBCUT every week 2 February 26, 2024 3:35pm March 12, 2024 9:48am Start: 02-26-2024 End: 06-13-9741ddeycv 10 mg by subcutaneous injection every weekTirzepatide (Weight Loss) Discontinued 10 MG SUBCUT every week 2 February 26, 2024 4:35pm March 12, 2024 10:48amStart: 09-76-3530gygqek 10 mg by subcutaneous injection every weekTirzepatide (Weight Loss) Active 10 MG SUBCUT every week 2 February 26, 2024 4:35pmtirzepatide, weight loss, (ZEPBOUND) 10 mg/0.5 mL solution (1 source)tirzepatide, weight loss, (ZEPBOUND) 10 mg/0.5 mL solution Inject 10 mg under the skin every 7 days. Activetirzepatide, weight loss, (ZEPBOUND) 10 mg/0.5 mL solution (5 sources)tirzepatide, weight loss, (ZEPBOUND) 10 mg/0.5 mL solution Inject 10 mg under the skin every 7 days. Activetirzepatide, weight loss, (ZEPBOUND) 2.5 mg/0.5 mL pen injector (8 sources) End: 11-11-3864fyxbfwdtmzp, weight loss, (ZEPBOUND) 2.5 mg/0.5 mL pen injector Inject 2.5 mg under the skin every 7 days. 09/27/2024 Discontinued (Therapy completed)tirzepatide, weight loss, (ZEPBOUND) 2.5 mg/0.5 mL pen injector Inject 2.5 mg under the skin every 7 days. Activeubiquinol 100 mg oral capsule (20 sources)Start: 11-24-2023 End: 27-51-8271cjil 1 capsule by mouth once daily in the yxvozbjJwc25 (Ubiquinol) (Qunol Bruno Coq10) 100 mg capsule Active 100 MG PO Every evening November 23, 2023 11:00pm Complies with drug therapyUNABLE TO FIND (6 sources)take 1 tablet into the eye(s) once dailyUNABLE TO FIND Eye promise 1 tablet daily ActiveVitamin D (2 sources)Start: 89-58-6128Tgzspzs D Oral, Daily, Refills(s) 0, Prophylaxis Start Date: 06/17/24 Status: OrderedVITAMIN D PO (20 sources)VITAMIN D PO Take by mouth ActiveZepbound 10 MG/0.5ML solution auto-injector (20 sources)Start: 49-53-0884Pqwslsvp 10 MG/0.5ML solution auto-injector 04/02/2024 ActiveStart: 92-82-0820arrzva 0.5 mL by subcutaneous injection every weekZepbound 10 MG/0.5ML solution auto-injector INJECT 0.5 ML SUBCUTANEOUSLY EVERY WEEK FOR WEIGHT LOSS04/02/2024 Active Completed/Discontinued Medications MedicationDrug Class(es)DatesSig (Normalized)Sig (Original)aspirin 81 mg delayed release oral tablet (20 sources)Platelet Aggregation Inhibitor, Nonsteroidal Anti-inflammatory Drug Start: 06-30-2024 End: 03-12-2480uqgr 1 tablet by mouth twice dailyAspirin 81 mg tablet,delayed release (DR/EC) Discontinued 81 MG PO Twice daily August 03, 2024 12:00am October 26, 2024 7:38amStart: 06-30-2024 End: 72-39-6878hoec 1 tablet by mouth once dailyaspirin 81 mg Oral EC Tab 81 mg = 1 tab(s), Oral, Daily, X 90 day(s), # 90 tab(s), Refills(s) 0, Pharmacy: [facility]/pharmacy #[id number], 159, cm, 06/18/24 7:16:00 EST, Height/Length Dosing, 77.5, kg, 06/18/24 7:16:00 EST, Weight Dosing Start Date: 06/30/24 Stop Date: 09/28/24 Status: OrderedStart: 12-04-2023 End: 78-12-4622xxwx 1 tablet by mouth twice dailyAspirin 81 mg tablet,chewable Discontinued 81 MG PO Twice daily 28 14 0 December 03, 2023 11:00pm January 19, 2024 9:54am DO NOT RECONCILE UNTIL DOS 12/05/23 TO BE USED POST OP24 hr buPROPion hydrochloride 150 mg extended release oral tablet (20 sources)AminoketoneStart: 07-31-2023 End: 45-61-8292ilsa 1 mg by mouth once dailyBupropion Hcl Discontinued MG PO Daily July 31, 2023 9:23am November 24, 2023 10:42amStart: 07-30-2023 End: 26-79-6379fphj 1 tablet by mouth every twenty-four hoursBupropion Hcl 150 mg tablet extended release 24 hr Discontinued MG PO July 30, 2023 12:00am July 31, 2023 8:25amStart: 07-30-2023 End: 52-41-1490Qxbsneanq Hcl Discontinued MG PO July 30, 2023 1:00am July 31, 2023 9:25amStart: 03-01-2020 End: 36-10-8474xnxm 1 tablet by mouth once dailyBupropion Hcl 150 mg tablet extended release 24 hr Discontinued MG PO Daily July 31, 2023 8:23am November 24, 2023 9:42amStart: 02-18-2020 End: 81-53-5707bpHFTUhhu XL (Wellbutrin XL) 150 MG 24 hr tablet 09/04/2022 ActiveWellbutrin 150mg qd ActiveWellbutrin Mgysgw14 hr buPROPion hydrochloride 90 mg / naltrexone hydrochloride 8 mg extended release oral tablet (5 sources)Opioid Antagonist, AminoketoneStart: 78-87-5658Suzrlwzd 8-90 MG Week 1 take 1 tablet in the a.m., week 2 take 1 tablet in the a.m. and 1 tablet inthe p.m., week 3 take 2 tablets in the a.m. and 1 tablet in the p.m., week 4 and beyond take 2 tablets in the a.m. and p.m. Orally As directed for 30 days Jan, Not-TakingCarboxymethylcellulose (13 sources) End: 25-60-8502Ntxgatxgnxcjlfsqejdapg Sodium (EQ RESTORE PLUS LUBRICANT EYE OP) Administer into affected eye(s) 07/15/2024 Discontinued (Therapy completed) Carboxymethylcellulose Sodium (EQ RESTORE PLUS LUBRICANT EYE OP) Administer into affected eye(s) Activecelecoxib 100 mg oral capsule (20 sources)Nonsteroidal Anti-inflammatory DrugStart: 01-18-2025 End: 26-40-8904poph 1 capsule by mouth twice dailyCelecoxib 100 mg capsule Discontinued 100 MG PO Twice daily January 17, 2025 11:00pm April 19, 2025 9:36amStart: 08-31-2024 End: 55-61-0878sisz 1 capsule by mouth in the morning, then take 1 capsule by mouth at bedtimecelecoxib (CeleBREX) 100 mg capsule Take 1 capsule (100 mg total) by mouth in the morning and 1 capsule (100 mg total) before bedtime. 08/31/2024 11/29/2024 ActiveStart: 06-30-2024 End: 74-32-6877VjvvPPRA 200 MG capsule Take 200 mg by mouth 06/30/2024 Active cephalexin 500 mg oral tablet (20 sources)Cephalosporin AntibacterialStart: 07-31-2023 End: 86-36-5078ygfs 2 tablets by mouth every twelve hoursCephalexin 500 mg tablet Discontinued 1000 MG PO Every 12 hours July 31, 2023 12:00am September 29, 2023 7:20amStart: 07-31-2023 End: 96-95-0283cuuy 1000 mg by mouth every twelve hoursCephalexin Discontinued 1000 MG PO Every 12 hours July 31, 2023 1:00am September 29, 2023 8:20am dexamethasone 6 mg oral tablet (2 sources)CorticosteroidStart: 06-20-2023 End: 49-32-7583cmoDFKMUdptte (Decadron) 6 MG tablet 06/20/2023 04/15/2024 Discontinued (Therapy completed)hydroCHLOROthiazide 12.5 mg / losartan potassium 50 mg oral tablet (20 sources)Thiazide Diuretic, Angiotensin 2 Receptor BlockerStart: 06-12-2023 End: 66-25-7263vmrehxbm-hydroCHLOROthiazide (Hyzaar) 50-12.5 MG tablet 06/12/2023 06/17/2024 Discontinued (Therapycompleted)Start: 08-02-2021 End: 19-61-4645kjif 1 tablet by mouth once daily in the eveningLosartan- Hydrochlorothiazide 50-12.5 mg tablet Discontinued 1 TAB PO Every evening July 30, 2023 12:00am October 26, 2024 7:38am (HYZAAR)indomethacin 50 mg oral capsule (19 sources)Nonsteroidal Anti-inflammatory DrugStart: 11-24-2023 End: 82-66-4576zxxv 1 capsule by mouth three times dailyIndomethacin 50 mg capsule Discontinued 50 MG PO Three times daily November 23, 2023 11:00pm January 19, 2024 9:55amMagnesium glycinate (19 sources)Start: 11-24-2023 End: 48-62-6912xunc 2 capsules by mouth once daily in the eveningmagnesium glycinate Discontinued 2 CAP PO Every evening November 24, 2023 12:00am April 30:21amStart: 11-24-2023 End: 31-17-0687htst 2 capsules by mouth once daily in the eveningmagnesium glycinate Discontinued 2 CAP PO Every evening November 23, 2023 11:00pm April 3048:21amStart: 60-31-9674hrqu 2 capsules by mouth once daily in the eveningmagnesium glycinate Active 2 CAP PO Every evening November 24, 2023 12:00am Start: 35-52-0149rivr 2 capsules by mouth once dailymagnesium glycinate Active 2 CAP PO Daily November 24, 2023 12:00ammeloxicam 15 mg oral tablet (20 sources)Nonsteroidal Anti-inflammatory DrugStart: 06-05-2023 End: 70-23-4475xndv 1 tablet by mouth once dailyMeloxicam 15 mg tablet Discontinued 15 MG PO Daily July 31, 2023 12:00am December 01, 2023 6:40am End: 42-17-9410rypg 1 tablet by mouth in the morningmeloxicam (MOBIC) 7.5 mg tablet Take 1 tablet (7.5 mg total) by mouth in the morning. 09/27/2024 Dis continued (Therapy completed)1 ml methylPREDNISolone acetate 40 mg/ml injection (2 sources)CorticosteroidStart: 07-14-2023 End: 44-73-0284kzfmwyLRJUBMPlseut acetate (DEPO-Medrol) injection 40 mgnaproxen 500 mg oral tablet (20 sources)Nonsteroidal Anti-inflammatory DrugStart: 03-08-2024 End: 03-08-5983liek 1 tablet by mouth twice dailyNaproxen 500 mg tablet Discontinued 500 MG PO Twice daily March 11, 2024 11:00pm March 12, 2024 9:32amnitrofurantoin, macrocrystals 25 mg / nitrofurantoin, monohydrate 75 mg oral capsule (20 sources)Nitrofuran AntibacterialStart: 10-18-2023 End: 88-09-5366oxvz 1 capsule by mouth every twelve hours at mealtime Nitrofurantoin Monohyd/M-Cryst (Macrobid) 100 mg capsule Discontinued 100 MG PO Every 12 hours 14 70 October 17, 2023 11:00pm November 24, 2023 9:40am must administer with a meal/food24 hr pramipexole dihydrochloride 2.25 mg extended release oral tablet (20 sources)Nonergot Dopamine AgonistStart: 12-01-2023 End: 61-27-6110dpii 1 tablet by mouth once daily in the eveningPramipexole (Mirapex Er) 2.25 mg tablet extended release 24 hr Discontinued 2.25 MG PO Every evening November 30, 2023 11:00pm January 19, 2024 9:56am restless legStart: 23-07-7510juoj 2 tablets by mouth once daily in the eveningPramipexole 1 mg tablet Active 2 MG PO Every evening July 31, 2023 8:24am (MIRAPEX) Complies with drug therapyStart: 40-29-2030ebyj 2 mg by mouth once daily in the eveningPramipexole Active 2 MG PO Every evening July 31, 2023 9:24am (MIRAPEX)Start: 03-01-2020 End: 57-43-3580zgfavrepwgu (Mirapex) 1 MG tablet 12/25/2022 ActiveStart: 50-89-2250bgjyrtycrit (MIRAPEX) 0.25 MG tabletMirapex 2mg qd ActiveMirapex ActivepredniSONE 10 mg oral tablet (2 sources)Start: 10-31-2023 End: 77-13-3340ylwzibGOWZ (Deltasone) 10 MG tablet 10/31/2023 04/15/2024 Discontinued (Therapy completed)Relizen (8 sources)Relizen 2 tabs qd Not-TakingRelizen 2 tabs qd ActiveTirzepatide (Weight Loss) (20 sources)Start: 11-20-2023 End: 86-67-3680Lmqeunsqcdi (Weight Loss) (Zepbound) 5 mg/0.5 mL pen injector Discontinued 5 MG SUBCUT every week November 20, 2023 6:27am November 24, 2023 10:04amStart: 11-20-2023 End: 45-27-9696Jhxjlwxbcrt (Weight Loss) (Zepbound) 5 mg/0.5 mL pen injector Discontinued 5 MG SUBCUT every week 2023 6:27am November 24, 2023 10:04amStart: 11-20-2023 End: 46-93-0488Mepaviwlzyg (Weight Loss) (Zepbound) 5 mg/0.5 mL pen injector Discontinued 5 MG SUBCUT every week 2023 7:27am November 24, 2023 11:04amStart: 11-20-2023 End: 60-33-5327Celancbwjii (Weight Loss) (Zepbound) 5 mg/0.5 mL pen injector Discontinued 5 MG SUBCUT every week November 19, 2023 11:00pm November 20, 2023 6:28amStart: 11-20-2023 End: 40-84-7051Hwhtebwzyrt (Weight Loss) (Zepbound) 5 mg/0.5 mL pen injector Discontinued 5 MG SUBCUT every week November 20, 2023 12:00am November 20, 2023 7:28amStart: 09-29-2023 End: 93-65-8188Usdbqdrzzva (Weight Loss) 5 mg/0.5 mL pen injector Discontinued 5 MG SUBCUT every week 2 2023 7:35am October 27, 2023 1:26pmStart: 09-29-2023 End: 02-94-1599Aunvmtcahgl (Weight Loss) 5 mg/0.5 mL pen injector Discontinued 5 MG SUBCUT every week 2 September 29, 2023 8:35am October 27, 2023 2:26pmStart: 09-29-2023 End: 74-10-1907Aburwjfnoau (Weight Loss) 5 mg/0.5 mL pen injector Discontinued 5 MG SUBCUT every week 2 September 29, 2023 7:35am October 27, 2023 1:26pmStart: 09-29-2023 End: 74-65-7439sttzji 5 mg by subcutaneous injection every weekTirzepatide (Weight Loss) Discontinued 5 MG SUBCUT every week 2 September 29, 2023 8:35am October 27, 2023 2:26pmStart: 68-94-8560jfqhnn 5 mg by subcutaneous injection every weekTirzepatide (Weight Loss) Active 5 MG SUBCUT every week 2 September 29, 2023 8:35amTirzepatide (Weight Loss) (20 sources)Start: 10-27-2023 End: 11-17-1814Gqxnvfrtgmj (Weight Loss) (Zepbound) 2.5 mg/0.5 mL pen injector Discontinued 2.5 MG SUBCUT every week 2 October 27, 2023 1:24pm November 20, 2023 6:24am Class 2 obesity Dyslipidemia Obesity, unspecified Hyperlipidemia, unspecifiedStart: 10-27-2023 End: 36-02-3229Meffyyjgsrq (Weight Loss) (Zepbound) 2.5 mg/0.5 mL pen injector Discontinued 2.5 MG SUBCUT every week 2 October 27, 2023 1:24pm November 20, 2023 6:24amStart: 10-27-2023 End: 14-22-9777Kvkotcolpij (Weight Loss) (Zepbound) 2.5 mg/0.5 mL pen injector Discontinued 2.5 MG SUBCUT every week 2 October 27, 2023 2:24pm November 20, 2023 7:24amStart: 83-38-9892Qlowiclkkri (Weight Loss) (Zepbound) 2.5 mg/0.5 mL pen injector Active 2.5 MG SUBCUT every week 2 October 27, 2023 2:24pmStart: 09-22-2023 End: 95-18-3103Gtaxwgzfroh (Weight Loss) (Zepbound) 2.5 mg/0.5 mL pen injector Discontinued 2.5 MG SUBCUT every week 2 September 22, 2023 2:32pm September 29, 2023 7:46amStart: 09-22-2023 End: 91-42-5942Gcacwcnneqs (Weight Loss) (Zepbound) 2.5 mg/0.5 mL pen injector Discontinued 2.5 MG SUBCUT every week 2 September 22, 2023 2:32pm September 29, 2023 7:46amStart: 09-22-2023 End: 53-20-6166Sbgrkiltquk (Weight Loss) (Zepbound) 2.5 mg/0.5 mL pen injector Discontinued 2.5 MG SUBCUT every week 2 September 22, 2023 3:32pm September 29, 2023 8:46amStart: 08-21-2023 End: 41-63-5146Pwdspvqvezk (Weight Loss) (Zepbound) 2.5 mg/0.5 mL pen injector Discontinued 2.5 MG SUBCUT every week 2 August 21, 2023 1:37pm September 22, 2023 2:32pmStart: 08-21-2023 End: 94-07-4042Tldvwxcujkd (Weight Loss) (Zepbound) 2.5 mg/0.5 mL pen injector Discontinued 2.5 MG SUBCUT every week 2 August 21, 2023 1:37pm September 22, 2023 2:32pmStart: 08-21-2023 End: 36-50-7216Zbqgrezjexg (Weight Loss) (Zepbound) 2.5 mg/0.5 mL pen injector Discontinued 2.5 MG SUBCUT every week 2 August 21, 2023 2:37pm September 22, 2023 3:32pmStart: 07-31-2023 End: 72-57-2774Nxydgwdpmqq (Weight Loss) (Zepbound) 2.5 mg/0.5 mL pen injector Discontinued 2.5 MG SUBCUT every week 2 July 31, 2023 12:00am August 21, 2023 1:37pmStart: 07-31-2023 End: 68-18-4814Oqcmkiwxorm (Weight Loss) (Zepbound) 2.5 mg/0.5 mL pen injector Discontinued 2.5 MG SUBCUT every week 2 July 31, 2023 12:00am August 21, 2023 1:37pmStart: 07-31-2023 End: 43-32-2267Ybabkavrqpk (Weight Loss) (Zepbound) 2.5 mg/0.5 mL pen injector Discontinued 2.5 MG SUBCUT every week 2 July 31, 2023 1:00am August 21, 2023 2:37pmTirzepatide (Weight Loss) (20 sources)Start: 01-19-2024 End: 39-89-0566Hnoecewowru (Weight Loss) 7.5 mg/0.5 mL pen injector Discontinued 7.5 MG SUBCUT every week 2 January 19, 2024 10:14am February 26, 2024 3:36pm weight lossStart: 01-19-2024 End: 30-37-7646Epipubchkqp (Weight Loss) 7.5 mg/0.5 mL pen injector Discontinued 7.5 MG SUBCUT every week 2 2023 11:14am February 26, 2024 4:36pm Start: 01-19-2024 End: 93-38-1328Gpmrkfrmwck (Weight Loss) 7.5 mg/0.5 mL pen injector Discontinued 7.5 MG SUBCUT every week 2 2023 10:14am February 26, 2024 3:36pm Start: 01-19-2024 End: 69-91-4324sbyvqc 7.5 mg by subcutaneous injection every weekTirzepatide (Weight Loss) Discontinued 7.5 MG SUBCUT every week 2 January 19, 2024 11:14am February 26, 2024 4:36pmStart: 26-25-9035hexlzb 7.5 mg by subcutaneous injection every weekTirzepatide (Weight Loss) Active 7.5 MG SUBCUT every week 2 January 19, 2024 11:14amStart: 12-01-2023 End: 42-15-0531Btynlrkkssp (Weight Loss) 7.5 mg/0.5 mL pen injector Discontinued 7.5 MG SUBCUT every week November 30, 2023 11:00pm January 19, 2024 10:14am weight loss takes on MondaysStart: 12-01-2023 End: 55-17-9758Jrhjpblpoik (Weight Loss) 7.5 mg/0.5 mL pen injector Discontinued 7.5 MG SUBCUT every week December 01, 2023 12:00am January 19, 2024 11:14am takes on : 12-01-2023 End: 18-87-0703Niplwapyefu (Weight Loss) 7.5 mg/0.5 mL pen injector Discontinued 7.5 MG SUBCUT every week November 30, 2023 11:00pm January 19, 2024 10:14am takes on : 12-01-2023 End: 22-01-4065ywikwt 7.5 mg by subcutaneous injection every weekTirzepatide (Weight Loss) Discontinued 7.5 MG SUBCUT every week December 01, 2023 12:00am January 19, 2024 11:14am takes on : 58-66-5263xwilgn 7.5 mg by subcutaneous injection every weekTirzepatide (Weight Loss) Active 7.5 MG SUBCUT every week December 01, 2023 12:00am takes on : 11-24-2023 End: 45-64-9534Izzgyhgxhjl (Weight Loss) 7.5 mg/0.5 mL pen injector Discontinued 7.5 MG SUBCUT every week 2 0 2023 10:04am December 01, 2023 6:51am Start: 11-24-2023 End: 78-08-5447Buatnrgdmyo (Weight Loss) 7.5 mg/0.5 mL pen injector Discontinued 7.5 MG SUBCUT every week 2 November 24, 2023 11:04am December 01, 2023 7:51amStart: 11-24-2023 End: 26-28-6149Zrfcssshdmk (Weight Loss) 7.5 mg/0.5 mL pen injector Discontinued 7.5 MG SUBCUT every week 2 November 24, 2023 10:04am December 01, 2023 6:51amStart: 11-24-2023 End: 68-47-7560npehqg 7.5 mg by subcutaneous injection every weekTirzepatide (Weight Loss) Discontinued 7.5 MG SUBCUT every week 2 November 24, 2023 11:04am December 01, 2023 7:51amStart: 22-28-3448rxkbge 7.5 mg by subcutaneous injection every weekTirzepatide (Weight Loss) Active 7.5 MG SUBCUT every week 2 November 24, 2023 11:04amubidecarenone 75 mg oral capsule (20 sources)Start: 07-30-2023 End: 01-95-8249Rqxwioxz Q10 (Ultra Coq10) 75 mg capsule Discontinued 75 MG PO Daily July 30, 2023 12:00am November 24, 2023 9:39amStart: 30-47-9346dwrw 1 capsule by mouth once in the morningcoenzyme Q10 100 mg capsule Take 1 capsule (100 mg total) by mouth in the morning. 30 capsule 11 11/30/2021 Active Problems Active Problems Problem ClassificationProblemDateDocumented DateEpisodic/ChronicAbdominal pain (2 sources)Epigastric qlsg54-21-5582FhzrdjhmKonoiafwpfpczz/social admission (20 sources)Dietary counseling and surveillance; Translations: [Other specified counseling]EpisodicAllergic reactions (2 sources)Rejash59-05-9196MgnmnrogMagojvj disorders (20 sources)Mixed anxiety and depressive disorder; Translations: [Anxiety disorder, unspecified]54-34-4666JbmhigoXjxpoqy tract disease (2 sources)Biliary kmscudzm56-34-9501QcznjxhyAqasjbodu of lipid metabolism (20 sources)Dyslipidemia; Translations: [Hyperlipidemia, unspecified]Onset: 51-12-2321RkiattnLwijcoccnv disorders (20 sources)Gastroesophageal reflux disease; Translations: [Gastro-esophageal reflux disease without esophagitis]ChronicEssential hypertension (20 sources)Essential hypertension; Translations: [Essential (primary) hypertension]Onset: 02-52-8766LdgaitrEqwmzcmprqftgk ulcer (except hemorrhage) (2 sources)Gastric licfs21-19-1466EpxcbalUtnfeurr (2 sources)Open-angle bppvlpyt38-53-3525AikpwyzOrgyq disorders and dislocations; trauma-related (20 sources)Tear of meniscus of knee; Translations: [Unspecified tear of unspecified meniscus, current injury, right knee, initial encounter]11-25-2023 EpisodicMenopausal disorders (18 sources)Menopausal flushing; Translations: [Menopausal and female climacteric states]Onset: 255936-88-4087CiplobvBwcnrofbmolqjb (20 sources)Unilateral primary osteoarthritis, right knee; Translations: [Unspecified osteoarthritis, unspecified site]Onset: 23-68-2436HabwqpyKufai aftercare (9 sources)Surgical follow-up; Translations: [Encounter for removal of sutures] 64-34-5130FdwyfvgdGhsdr aftercare (15 sources)Encounter for removal of sutures; Translations: [Encounter for removal of sutures]28-95-4355PemdnzkzPekfm aftercare (5 sources)Removal of sutures done; Translations: [Encounter for removal of sutures]80-42-4595YqbdijfwOpplg and unspecified benign neoplasm (2 sources)Benign neoplasm of skin of -99-1056KxsllowfKgfut connective tissue disease (20 sources)History of total knee arthroplasty; Translations: [Presence of right artificial knee joint]Onset: 398179-10-2370GmowcgmTmjui connective tissue disease (8 sources)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; Translations: [Iliotibial band syndrome, right leg]25-04-6447UrczvvdlLtfci hereditary and degenerative nervous system conditions (2 sources)Restless uulr79-20-4777VcflsqmBzuyb nervous system disorders (20 sources)Difficulty walking; Translations: [Difficulty in walking, not elsewhere classified]Onset: 570529-16-2570UauyqefHbmxk non-traumatic joint disorders (1 source)Pain in right shoulder; Translations: [Pain in joint, shoulder region] 95-21-5485NprslffyEdniz non-traumatic joint disorders (1 source)Disorder of shoulder; Translations: [Other specified joint disorders, right shoulder]65-11-0770RdtlosbwBhdkt non-traumatic joint disorders (20 sources)Pain in right knee; Translations: [Right knee pain]11-25-2023 EpisodicOther nutritional; endocrine; and metabolic disorders (10 sources)Morbid obesity; Translations: [Morbid (severe) obesity due to excess calories]ChronicOther nutritional; endocrine; and metabolic disorders (20 sources)Metabolic syndrome X; Translations: [Metabolic syndrome]07-30-2023 ChronicOther nutritional; endocrine; and metabolic disorders (4 sources)Morbid (severe) obesity due to excess caloriesChronicOther nutritional; endocrine; and metabolic disorders (4 sources)Metabolic syndromeChronicOther nutritional; endocrine; and metabolic disorders (9 sources)Body mass index 40+ - severely obese; Translations: [Body mass index (BMI) 40.0-44.9, adult]ChronicOther nutritional; endocrine; and metabolic disorders (20 sources)Obese class II; Translations: [Body mass index (BMI) 39.0-39.9, adult]58-34-7314WbabkcrRnako nutritional; endocrine; and metabolic disorders (19 sources)Obesity; Translations: [Obesity, unspecified]ChronicOther nutritional; endocrine; and metabolic disorders (20 sources)Obesity, unspecified; Translations: [Obesity, unspecified]Chronic Other nutritional; endocrine; and metabolic disorders (1 source)Body mass index (BMI) 39.0-39.9, adultChronicOther nutritional; endocrine; and metabolic disorders (13 sources)Obese class I; Translations: [Obesity, unspecified]86-11-8120Gkrgsyg Other nutritional; endocrine; and metabolic disorders (10 sources)Body mass index 25-29 - overweight; Translations: [Overweight] 19-26-6781NqflccerGasne screening for suspected conditions (not mental disorders or infectious disease) (9 sources)Encounter for screening mammogram for malignant neoplasm of breast; Translations: [Patient encounter status]Onset: 08-45-7430XjrijdchZnmxw skin disorders (2 sources)Mass of iyva01-52-7161EtouxjnxNxkiv skin disorders (2 sources)Skin ejb18-44-9301PqkjolbzMwqen upper respiratory infections (4 sources)Chronic sinusitis, unspecified; Translations: [Chronic maxillary sinusitis]Onset: 05-36-4632XvccbbtRinlytms codes; unclassified (18 sources)Sleep apnea; Translations: [Sleep apnea, unspecified]Onset: 992837-65-0910EoigswgEusiqpcu codes; unclassified (15 sources)History of arthroscopy of knee joint; Translations: [Other specified postprocedural states]63-59-0433EughepirKurjeib and strains (20 sources)Unspecified sprain of right lesser toe(s), initial encounter; Translations: [Sprain of medial collateral ligament of left knee, initial encounter]Onset: 12-15-2021 Resolved: 55-20-2393OmnstmkjJaozradbmtpr (4 sources)Patient encounter -90-6326Vwizttpgbgow (3 sources)CONTACT W/AND (SUSP) EXPOS COVID-19; Translations: [CONTACT W/AND (SUSP) EXPOS COVID-19]Onset: 55-97-8303Uptjuje tract infections (9 sources)Acute cystitis with hematuria; Translations: [Acute cystitis] 51-61-4129Zmfjtxrl Past or Other Problems Problem ClassificationProblemDateDocumented DateEpisodic/ChronicDeficiency and other anemia (1 source)Anemia, unspecified; Translations: [ANEMIA UNSPECIFIED]Onset: 15-70-8605SjgxpiniDqbot aftercare (1 source)Patient encounter status; Translations: [Encounter for therapeutic drug level monitoring]32-26-8942GyapdmckOlmhh aftercare (1 source)Encounter for therapeutic drug level monitoring; Translations: [Encounter for therapeutic drug level monitoring]Onset: 24-81-3145PuagdgswDbssm connective tissue disease (1 source)Pain in right toe(s)Onset: 12-15-2021 Resolved: 63-97-6873AdffabjjYsoni lower respiratory disease (19 sources)Dyspnea; Translations: [Shortness of breath]Onset: 08-02-2021 Resolved: 795715-45-7635YxpxzxuiEmzmw nervous system disorders (20 sources)Other acute postprocedural pain; Translations: [Pain in joint, lower leg]Onset: 174263-90-3027WihxplbyQcvve non-traumatic joint disorders (1 source)Pain in right wristOnset: 08-10-2021 Resolved: 67-51-9082YzetumsrVlmid nutritional; endocrine; and metabolic disorders (20 sources)Body mass index 30+ - obesity; Translations: [Obesity, unspecified] Onset: 08-02-2021 Resolved: 467720-73-1142NpzqrisCeoiu nutritional; endocrine; and metabolic disorders (1 source)Overweight; Translations: [Overweight]Onset: 99-61-5045RutyoplhByqda skin disorders (4 sources)Alopecia (capitis) totalis; Translations: [ALOPECIA CAPITIS TOTALIS] Onset: 26-87-5665QcbgywgqNkehdgzz codes; unclassified (1 source)Family history of malignant neoplasm of breast; Translations: [FAMILY HX MALIG NEOPLASM OF BREAST]Onset: 57-36-3062CkufjafoQsnreeim codes; unclassified (20 sources)Other specified postprocedural states; Translations: [Other postprocedural status]Onset: 057104-68-2164AtvggmicItbsqvzz codes; unclassified (18 sources)Menopause present; Translations: [Asymptomatic menopausal state] Onset: 032083-92-2473MunynjlcQozazonu codes; unclassified (19 sources)Family history of cardiac disorder; Translations: [Family history of ischemic heart disease and other diseases of the circulatory system]Onset: 239374-65-8452FifgfampBjpvfqwr codes; unclassified (1 source)Family history of ischemic heart disease and other diseases of the circulatory system; Translations: [Family history of ischemic heart disease and other diseases of the circulatory system]Onset: 89-80-1857EqkypthqBbdxaewicljm (1 source)CONTACT W/AND (SUSP) EXPOS COVID-19; Translations: [CONTACT W/AND (SUSP) EXPOS COVID-19]Onset: 01-07-2022 Results Test NameValueInterpretationReference RangeFacilityMAMM SCREENING BILATERAL W CADon 80-47-5057IUKR SCREENING BILATERAL W CADMAMM SCREENING BILATERAL W CAD CARLY CESAR 1970 [id number] EXAM: MAMM SCREENING BILATERAL W CAD, 02/23/2025 [...] 02/23/2025 11:06 AM 1 [facility] 12-27-2024 Imaging Result: Three views, bilateral PA weight-bearing/sunrise/lateral right knee, taken today and saved to the permanent medical record are reviewed. Prosthesis is unchanged in position and alignment. No signs of prosthetic wear or loosening. No periprosthetic fractures.[facility] HealthcareRadiology Study observation (narrative)[facility]ox SouthGlomerular filtration rate (GFR) estimation in non- AmericanOrdered By: Sandra Jules on 12-07-2024 GFR/1.73 sq M.predicted among non-blacks MDRD (S/P/Bld) [Vol rate/Area] mL/min/{1.73_m2}[facility]Labor[facility] - Chemistry and Chemistry - challengeOrdered By: Sandra Jules on 63-13-4259Rckhpkvhzwj [Mass/Vol]128 mg/dLAccess Hospital DaytonCholesterol in HDL [Mass/Vol]60 mg/dLAccess Hospital DaytonCholesterol in LDL [Mass/Vol] 51.2 mg/dLAccess Hospital DaytonCholesterol.total/Cholesterol in HDL [Mass ratio]2.1 {ratio}[facility] DaytonTriglyceride [Mass/Vol] 84 mg/dLAccess Hospital DaytonALP [Catalytic activity/Vol]58 U/L [facility] [place]ALT [Catalytic activity/Vol]23 U/LFSelect Medical Specialty Hospital - TrumbullAST [Catalytic activity/Vol]21 U/LFSelect Medical Specialty Hospital - TrumbullBilirubin [Mass/Vol]0.4 mg/dLAccess Hospital Dayton Calcium [Mass/Vol]8.7 mg/dLAccess Hospital DaytonChloride [Moles/Vol] 106 mmol/LFSelect Medical Specialty Hospital - TrumbullCO2 [Moles/Vol]28.3 mmol/LFSelect Medical Specialty Hospital - TrumbullCreatinine [Mass/Vol]0.80 mg/dLAccess Hospital DaytonGlucose [Mass/Vol]80 mg/dLAccess Hospital DaytonPotassium [Moles/Vol]4.2 mmol/LFSelect Medical Specialty Hospital - TrumbullProtein [Mass/Vol]6.6 g/dL [facility] Hospitalodium [Moles/Vol]142 mmol/[facility] HospitalUrea nitrogen [Mass/Vol]15.0 mg/dLAccess Hospital DaytonLaboratory - Hematology and Cell countsOrdered By: Sandra Jules on 82-74-2372EkF2c (Bld) [Mass fraction]5.1 %[facility] [place] Basophils (Bld) [#/Vol]0.0 10*3/[facility] CenterBasophils/100 WBC (Bld)0.3 %[facility] DaytonEosinophils (Bld) [#/Vol]0.1 10*3/[facility] CenterEosinophils/100 WBC (Bld)2.2 %[facility] DaytonErythrocyte distribution width (RBC) [Ratio]13.0 % [facility] DaytonHematocrit (Bld) [Volume fraction]36.4 % [facility] DaytonHemoglobin (Bld) [Mass/Vol]12.2 g/dLAccess Hospital DaytonLymphocytes (Bld) [#/Vol]1.8 10*3/[facility] CenterLymphocytes/100 WBC (Bld)29.0 %[facility] [place] MCH (RBC) [Entitic mass]30.3 pgFSelect Medical Specialty Hospital - TrumbullMCHC (RBC) [Mass/Vol]33.5 g/dLAccess Hospital DaytonMCV (RBC) [Entitic vol]90.3 [facility] Medical CenterMonocytes (Bld) [#/Vol]0.4 10*3/uLAccess Hospital DaytonMonocytes/100 WBC (Bld)6.0 %[facility] DaytonNeutrophils (Bld) [#/Vol]4.0 10*3/uLAccess Hospital [place] Neutrophils/100 WBC (Bld)62.2 %[facility] DaytonPlatelet mean volume (Bld) [Entitic vol]11.0 fLAccess Hospital DaytonPlatelets (Bld) [#/Vol]247 10*3/[facility] CenterRBC (d) [#/Vol]4.03 10*6/[facility] CenterWBC (d) [#/Vol]6.4 10*3/[facility] CenterNo Panel InformationOrdered By: Sandra Jules on 92-29-1006Kyxryumma Average Fqtqmpl596GzexxrvhjAccess Hospital DaytonThyroid Stimulating Hormone 3rd Gen1.67[facility] DaytonVLDL Cholesterol 16.8 mg/dLAccess Hospital DaytonUrine albumin/creatinine ratioOrdered By: Sandra Jules on 76-80-0141Qqsgplk/Creatinine (U) [Ratio]3.6 g/dLAccess Hospital DaytonApolipoprotein BOrdered By: Sandra Jules on 11-25-2024 Apolipoprotein B [Mass/Vol]73 mg/dL<90Access Hospital DaytonComment on above:Result Comment: Desirable < 90 Borderline High 90 - 99 High 100 - 130 Very High >130 ASCVD RISK THERAPEUTIC TARGET CATEGORY APO B (mg/dL) Very High Risk <80 (if extreme risk <70) High Risk <90 Moderate Risk <90 Performed at: [address] [id number] Religion Instructor: Yolanda Estrada MD, Phone: [phone] PERFORMED BY: [place] [address] PATHOLOGIST SANITATION ENGINEER JOHN LOBATO M.D.Performed By: #### HSCRP, LIPID #### [address] #### LIPA, APOB #### [facility] ,Desirable < 90 Borderline High 90 - 99 High 100 - 130 Very High >130 ASCVD RISK THERAPEUTIC TARGET CATEGORY APO B (mg/dL) Very High Risk <80 (if extreme risk <70) High Risk <90 Moderate Risk <90Performed at: BN - [facility] [address] [place], [place] [id number] Director: Yolanda Estrada MD, Phone: [phone] reactive protein [Mass/volume] in Serum or Plasma by High sensitivity method Ordered By: Sandra Jules on 93-41-8264VQG High sensitivity method [Mass/Vol] 1.6 mg/LHigh0.0-0.9Access Hospital DaytonComment on above: Cardiovascular Risk Classification (AHA/CDC)hsCRP < [...] of this marker for estimation of CVD risk.CT heart calcium score woon 72-39-7625IK heart calcium score [facility] [place] [address] CT Scan Report Signed Patient: Carly Cesar MR#: [id number] 351 : 1970 Acct:[id number] Age/Sex: 54 / F ADM Date: 11/25/24 Loc: CT Room: Type: [facility] Attending Dr: Sandra Jules MD Copies [...] Jr., D.O. 11/25/2024 11:08 AM Dictation Location: [place] [address] Transcribed By: [facility] 11/25/24 1108 Dictated By: Rj Soriano Jr, DO 11/25/24 1058 Signed By: 11/25/24 1108[facility] Physician GroupCholesterol in LDL Calc [Mass/Vol]Ordered By: Sandra Jules on 41-42-8251Uipueugghmw in LDL [Mass/Vol] 76 mg/dL0-100Access Hospital DaytonComment on above:LDL ATP III CLASSIFICATIONLDL less than 100 mg/dL OptimalLDL 100-129 mg/dL Near or above wlowrkuBYZ054-346 mg/dL Borderline highLDL 160-189 mg/dL HighLDL greater than 189 mg/dL Very highCholesterol in VLDL Calc [Mass/Vol]Ordered By: Sandra Jules on 18-69-2641Lwnfkzexdhd in VLDL [Mass/Vol]26 mg/dLAccess Hospital DaytonHigh Sensitive CRPon 65-18-0009Gmal Sensitive CRP1.6 mg/LHigh0.0-0.9[facility] Physician GroupComment on above:Result Comment: Cardiovascular Risk Classification (AHA/CDC) hsCRP < 1.0 mg/l [...] for estimation of CVD risk. PERFORMED BY: [place] [address] PATHOLOGIST SANITATION ENGINEER JOHN LOBATO M.D.Performed By: #### HSCRP, LIPID #### [facility] [address] [place] [address] [place] #### LIPA, APOB #### [facility] ,Lipid PanelOrdered By: Sandra Jules on 13-69-5837Utehsivjwyo [Mass/Vol]159 mg/sS671-358EvodkgyvwAccess Hospital DaytonComment on above:Result Comment: Chol less than 200 mg/dl low risk Chol 201-239 mg/dl borderline risk Chol 240 mg/dl and greater high riskPerformed By: #### HSCRP, LIPID #### [address] #### LIPA, APOB #### [facility] ,Chol less than 200 mg/dl low riskChol 201-239 mg/dl borderline riskChol 240 mg/dl and greater high riskCholesterol in HDL [Mass/Vol]56 mg/pZ76-00ByvqdpbwwAccess Hospital DaytonComment on above:Result Comment: HDL CHOL ATP-III CLASSIFICATION Cardiovascular Risk HDL > or equal to 60 mg/dL LOW HDL < 40 mg/dL HIGHPerformed By: #### HSCRP, LIPID #### [place] [address] [place] #### LIPA, APOB #### [facility] ,HDL CHOL ATP-III CLASSIFICATION Cardiovascular RiskHDL > or equal to 60 mg/dL LOWHDL < 40 mg/dL HIGHCholesterol.total/Cholesterol in HDL [Mass ratio]2.8 {ratio}<5.0Access Hospital DaytonComment on above:Result Comment: PERFORMED BY: [place] [address] PATHOLOGIST SANITATION ENGINEER JOHN LOBATO M.D.Performed By: #### HSCRP, LIPID #### [address] #### LIPA, APOB #### [facility] ,Lipid Panelon 97-84-8036XAF Cholesterol,Hsooulvkwi58 mg/dLNormal0-100The [facility] Physician GroupComment on above:Result Comment: LDL ATP III CLASSIFICATION LDL less than 100 mg/dL Optimal LDL 100-129 mg/dL Near or above optimal LDL 130-159 mg/dL Borderline high LDL 160-189 mg/dL High LDL greater than 189 mg/dL Very highPerformed By: #### HSCRP, LIPID #### [address] #### LIPA, APOB #### [facility] ,Triglyceride w/Sylrrx187 mg/dLNormal0-149The [facility] Physician GroupComment on above:Result Comment: TRIG ATP III CLASSIFICATION TRIG less than 150 mg/dL Normal TRIG 150-199 mg/dL Borderline high TRIG 200-500 mg/dL High TRIG greater than 500 mg/dL Very high Standard traceable to the Center for Disease Conrtrol and Prevention (CDC) test method.Performed By: #### HSCRP, LIPID #### [address] #### LIPA, APOB #### [facility] ,VLDL TCLIHOSJLBY59 mg/dLNormalThe [facility] Physician GroupComment on above: Performed By: #### HSCRP, LIPID #### [address] #### LIPA, APOB #### [facility] ,Lipoprotein (a)on 99-91-9960Cuzehagbtfv a [Mass/Vol]330.9 mg/dLNormal<75.0The [facility] Physician GroupComment on above:Result Comment: Results confirmed on dilution. This test was developed and its performance characteristics determined by [facility]. It has not been cleared or approved by the Food and Drug Administration. Note: Values greater than or equal to 75.0 nmol/L may indicate an independent risk factor for CHD, but must be evaluated with caution when applied to non- populations due to the influence of genetic factors on Lp(a) across ethnicities. Performed at: [facility] [address] [place], [place] [id number] Religion Instructor: Christopher Narvaez PhD, Phone: [phone] By: #### HSCRP, LIPID #### [address] #### LIPA, APOB #### [facility] ,Serum or plasma lipoprotein a measurement (moles/volume)Ordered By: Sandra Jules on 85-19-6699Ompqydhamkt a [Moles/Vol]330.9 nmol/LHigh<75.0Access Hospital DaytonComment on above:Results confirmed ondilution.This test was developed and its performance characteristicsdetermined by [facility]. It has not been cleared orapproved by the Food and Drug Administration.Note: Values greater than or equal to 75.0 nmol/L may indicate an independent risk factor for CHD, but must be evaluated with caution when applied to non- populations due to the influence of genetic factors on Lp(a) across ethnicities.Performed at: [employer] [address] [place], [place] [id number] Director: Christopher Narvaez PhD, Phone: [phone] [Mass/volume] in Serum or PlasmaOrdered By: aSndra Jules on 11-25-2024 Triglyceride [Mass/Vol]134 mg/dL0-149Access Hospital DaytonComment on above:TRIG ATP III CLASSIFICATIONTRIG less than 150 mg/dL NormalTRIG 150-199 mg/dL Borderline highTRIG 200-500 mg/dL High TRIG greater than 500 mg/dL Very highStandard traceable to the Center for Disease Conrtrol and Prevention (CDC) test method.XR Knee - right 3 Viewson 69-49-1436Bbygpgd Result: Three views, bilateral PA weight-bearing/sunrise/lateral right knee, taken today and saved to the permanent medical record are reviewed. Prosthesis is unchanged in position and alignment. No signs of prosthetic wear or loosening. No periprosthetic fractures.[facility] observation (narrative)[facility] K[facility] - right 3 Viewson 07-17-2024 Imaging Result: Three views, bilateral PA weight-bearing/sunrise/lateral right knee, taken today and saved to the permanent medical record are reviewed. Prosthesis is unchanged in position and alignment. No signs of prosthetic wear or loosening. No periprosthetic fractures.[facility]heasternXR Knee - right 3 Viewson 86-59-8404Kpgocyvxz Study observation (narrative)[facility] Pathology Reporton [id number] Pathology Report[address] [place] [address]- Surgical Pathology Report Collected Date/Time: 06/30/2024 09:47 EST Pathologist: Stephen KING PhD, Asya Nuñez Received Date/Time: 06/30/2024 11:07 EST Chuyita MCKEON, Clint Boogie DO, Clint Barbour Surgical Pathology Report - 07/05/2024 10:30 EST [...] thin and rough with osteophyte formation present. Cloud Consultant portion is submitted in two cassettes: 1 - Soft tissue 2 - Bone after decalcification (DC) DC:MCA Microscopic Description Microscopic examination performed unless gross only specified. This report was transcribed using voice recognition technology and might contain unintended computerized logistics team lead errors.NormalWexner Medical CenterComment on above:Performed By: #### [id number] #### [facility] [address] [place] [address]Lyqh OR Intraoperative Recordon [id number] OR Intraoperative RecordMain OR Intraoperative Record IntraOp Document Type FT Summary Primary Physician: Clint Boogie DO Finalized Date/Time: 07/01/24 14:55:04 Pt. Name: CARLY CESAR/Sex: 1970 Female Med Rec #: [id number] Physician: Clint Boogie DO Financial #: [id number] Pt. Type: A Room/Bed: [facility] Admit/Disch: 06/30/24 06:24:47 - 06/30/24 15:05:00 Institution: [...] Entry 2 Entry 3 Case Attendee Arline Atr CRNA, DO, Jason A Ott RN, Liz Streeter Role Performed JIGAR Surgeon - Primary Payroll And Benefits Specialist - Primary Time In 06/30/24 08:53:00 06/30/24 09:26:00 06/30/24 09:01:00 Time Out 06/30/24 10:54:00 06/30/24 10:42:00 06/30/24 10:54:00 Procedure KNEE TOTAL ROBOT KNEE TOTAL ROBOT KNEE TOTAL ROBOT ARTHROPLASTY(Right) ARTHROPLASTY(Right) ARTHROPLASTY(Right) Comments Last Modified By: Amy Dyer CST, RN, Liz Valencia RN, Liz Streeter 07/01/24 14:53:28 06/30/24 10:54:32 06/30/24 10:54:32 Entry 4 Entry 5 Entry 6 Case Attendee Dylan RN, CNOR, Laurie Agosto SURVEYOR ROD HELPER, Freya Mullins SURVEYOR ROD HELPER, Maurilio Wakefield Role Performed Payroll And Benefits Specialist - Primary SURVEYOR ROD HELPER/SA Scrub - Primary Time In 06/30/24 09:01:00 06/30/24 08:53:00 06/30/24 08:53:00 Time Out 06/30/24 10:54:00 06/30/24 10:54:00 06/30/24 10:46:00 Procedure KNEE TOTAL ROBOT KNEE TOTAL ROBOT KNEE TOTAL ROBOT ARTHROPLASTY(Right) ARTHROPLASTY(Right) ARTHROPLASTY(Right) Comments Last Modified By: Erik RN, Liz Valencia RN, Liz Valencia RN, Liz Streeter 06/30/24 10:54:32 06/30/24 10:54:32 06/30/24 10:54:32 Entry 7 Entry 8 Entry 9 Case Attendee Shannon Cross CHEMICAL INSPECTOR, Arline Zimmerman RN, Joan Mota Role Performed Staff - Other Anesthesiologist Staff - Other Photographic Equipment Inspector Time In 06/30/24 08:53:00 06/30/24 08:53:00 06/30/24 [...] REP ALSO PRESENT FOR THIS CASE. ANUSHA STANFORDbusiness analytics manager Protocols FT Pre-Care Text: Implements protective measures [...] Time Out Arline Art CRNA, Given Participants Liz Valencia RN, Brown DO, Jason A, Missler RN, CNOR, Surendra Jay CST, Harpreet Howard CST, [place] [...] Orthopedics ASA Class 2 (more content not included)...NormalWexner Medical CenterABO/Rhon 77-75-3360KQJ/RhPositiveInvalid Interpretation [facility] Comment on above:Performed By: #### [id number] #### [facility] [address] [place], [place] [address]SYM/Rh History Checkon 96-72-2143UFK/Rh History CheckVerified Hx Blood TypeNormalWexner Medical CenterComment on above:Performed By: #### [id number] #### [facility] [address] [place], [place] [address]SAHRml 56-62-8985CINM Gel InterpNegativeNormalWexner Medical CenterComment on above:Performed By: #### [id number] #### [facility] [address] [place], [place] [address]BPWIF BANKOrdered By: Carla Islas on 46-67-7857AGW/Rh InterpPositiveInvalid Interpretation [facility] BB SubsectionABSC Gel Interp Negative (06/30/24 7:02 AM)NormalOKEENE MUN[facility] [place] BB SubsectionBlood Bank ID#on [id number]#[id number] Invalid Interpretation [facility] HospitalComment on above:Performed By: #### [id number] #### [facility] [address] [place], [place] [address]Rurkgvlps Instructionson 24-13-0973Xkddivkas Instructions Discharge Instructions CARLY CESAR :1970 Visit [...] (Fiber Tabs) pramipexole (Mirapex 1 mg Tab) sulfamethoxazole-trimethoprim (Bactrim D.S. 800 mg-160 mg Tab) tirzepatide [...] scheduled Call for any problems. Where: [address] [place] [address]- [address] (1) Medications What How Much When Instructions Next Dose New acetaminophen-oxycodone (Percocet 5 mg-325 mg oral tablet) See instructions 1-2 tab(s) Oral q4hr Pickup at [facility]/pharmacy #6177 New aspirin (aspirin 81 mg Oral EC Tab) 1 Tablets By Mouth Every day Duration: 90 Days Pickup at [facility]/pharmacy #6177 New celecoxib (CeleBREX 200 mg Cap) 1 Capsules By Mouth Every day start after finishing ketorolac Pickup at [facility]/pharmacy #6177 New docusate (Colace 100 mg Cap) 1 Capsules By Mouth 2 times a day as needed for for constipation Pickup at [facility]/pharmacy #6177 New gabapentin (gabapentin 300 mg Cap) 1 Capsules By Mouth 3 times a day Duration: 14 Days Pickup at [facility]/pharmacy #6177 New ketorolac (ketorolac 10 mg Tab) 1 Tablets By Mouth Every 8 hours Duration: 3 Days Pickup at [facility]/pharmacy #6177 New sulfamethoxazole-trimethoprim (Bactrim D.S. 800 mg-160 mg Tab) 1 Tablets By Mouth 2 times a dayDuration: 7 Days Pickup at [facility]/pharmacy #6177 Unchanged buPROPion (Wellbutrin XL 150 mg/ [...] subcutaneous solution) Subcutaneous Every week Pharmacy Information [facility]/pharmacy #6177: [address] [place] [address], [place] [phone] What When Comments Stop Taking cefdinir Stop [...] you have reached, your (more content not included)...[facility] Comment on above:Result Comment: Electronically Signed By: Russell TAVARES, Sofie Landaverde\.otis\Date and Time Signed: 06/30/24 11:46 ESTInpatient Patient Summaryon [id number] Patient SummaryInpatient Patient Summary [place] [id number] [facility] Clinical Discharge Instructions PERSON INFORMATION Name: CARLY CESAR PHYSICIANS Admitting Physician: Clint Boogie DO Attending Physician: Clint Boogie DO PCP: Jonelle KING, Cristian Discharge Diagnosis: Comment: PATIENT EDUCATION INFORMATION Instructions: Naren Boogie - Total Knee Arthroplasty (Custom) Medication Leaflets: Follow up: MEDICATION LIST New Medications [facility]/pharmacy #6154, [address], [place] [phone], [phone] acetaminophen-oxycodone (Percocet 5 mg-325 mg oral tablet) [...] times a day as needed for constipation. Refills:0. gabapentin (gabapentin 300 mg Cap) 1 Capsules By Mouth 3 times a day for 14 Days. Refills: 0. ketorolac (ketorolac 10 mg Tab) 1 Tablets By Mouth every 8 hours for 3 Days. Refills: 0. sulfamethoxazole-trimethoprim (Bactrim D.S. 800 mg-160 mg Tab) 1 Tablets By Mouth 2 times a day for7 Days. Refills: 0. Medications to Continue with [...] By Mouth. phenazopyridine (Pyridium 100 mg Tab) Comment:[facility] OR PACU I Recordon [id number] OR PACU I RecordMain OR PACU I Record PACU Phase I Document Type FT Summary Primary Physician: Clint Boogie DO Finalized Date/Time: 06/30/24 12:24:18 Pt. Name: CARLY CESAR./Sex: 1970 Female Med Rec #: [id number] Physician: Clint Boogie DO Financial #: [id number] Pt. Type: A Room/Bed: Admit/Disch: 06/30/24 06:24:47 [...] individualized perioperative plan of care The patient's rightto privacy is maintained The patient's value system, [...] with or improved from baseline levels established preoperativelyThe patient's cardiovascular status is consistent with or improved from baseline levels established preoperatively The patient's cardiovascular status is consistent with or improved from baseline levels established preoperatively The patient demonstrates and/or reports adequate pain control throughout the perioperative period The patient received appropriate medication(s), safely administered during the perioperativeperiod Acuity Level PACU I FT Entry 1 Start Time 06/30/24 10:56:00 Stop Time 06/30/24 11:26:00 Acuity Level Acuity Level I Last Modified By: Monet Londono RN 06/30/24 12:23:15 Finalized By: Monet Londono RN Document Signatures Signed By: Monet Londono RN 06/30/24 12:23 Monet Londono RN 06/30/24 12:23 Monet Londono RN 06/30/24 12:23 Monet Londono RN 06/30/24 12:24[facility]Main OR PACU II Recordon [id number] OR PACU II RecordMain OR PACU II Record PACU Phase II Document Type FT Summary Primary Physician: Clint Boogie DO Finalized Date/Time: 06/30/24 15:23:17 Pt. Name: CARLY CESAR/Sex: 1970 Female Med Rec #: [id number] Physician: Clint Boogie DO Financial #: [id number] Pt. Type: A Room/Bed: Admit/Disch: 06/30/24 06:24:47 [...] and monitors body temperature Evaluates postoperative respiratory statusEvaluates postoperative cardiac status Evaluates postoperative neurological status [...] individualized perioperative plan of care The patient's rightto privacy is maintained The patient's value system, [...] with or improved from baseline levels established preoperativelyThe patient's cardiovascular status is consistent with or improved from baseline levels established preoperatively The patient's neurological status is consistent with or improved from baseline levels established preoperatively The patient demonstrates and/or reports adequate pain control throughout the perioperative period The patient received appropriate medication(s), safely administered during the perioperativeperiod Finalized By: Sofie Wells RN Document Signatures Signed By: Sofie Wells RN 06/30/24 15:23[facility] HospitalMain OR Preoperative Recordon [id number] OR Preoperative RecordMain OR Preoperative Record PreOp Document Type FT Summary Primary Physician: Clint Boogie DO Finalized Date/Time: 06/30/24 09:46:13 Pt. Name: CARLY CESAR/Sex: 1970 Female Med Rec #: [id number] Physician: Clint Boogie DO Financial #: [id number] Pt. Type: A Room/Bed: Admit/Disch: 06/30/24 06:24:47 [...] Signatures Signed By: Liz Valencia RN 06/30/24 09:46No[address] [facility] Warren HospitalOperative Report on [id number] ReportOperative Report Patient: CARLY CESAR Age: 54 years Sex: Female : 1970 Associated Diagnoses: None Author: Clint Boogie DO DATE OF SURGERY: 06/30/2024 SURGEON: Clint Boogie D.O. UNIX ADMINISTRATOR: Freya Agosto CFA PREOPERATIVE DIAGNOSIS: Advanced degenerative osteoarthrosis, right knee POSTOPERATIVE DIAGNOSIS: Advanced degenerative osteoarthrosis, right knee OPERATION: Right total knee arthroplasty utilizing Cred[employer] robotic arm assistance ANESTHESIA: Spinal + regional block CALCULATING MACHINE MECHANIC: Arline Art CRNA and Jr Flor MD IMPLANTS USED: [employer] Triathlon Total Knee System 1. size 2 [...] surgery was preplanned utilizing CT scan and [employer] software. This included the planned implant sizes [...] I requested the nerve block to assist withintraoperative and postoperative pain control. She was transported to the Operating Room and administered a spinal anesthetic. She was then placedsupine on the operating room table and a well padded tourniquet was applied to the operative upper thigh. The right upper extremity was secured across the patient's torso. The operative lower extremity was then prepped and draped in the usual sterile fashion. The foot was placed into a padded oseguera and secured in the Astech knee positioner. Surgical time-out was performed with [...] guidance using the saw attached to the [employer] robotic arm. Femoral cuts were made including anterior, posterior, and chamfer cuts. The tibial cut was then made in the same fashion. The resected bone fragments were removed with osteotomes and freed from tissue with the bovie. Lamina gas furnace installer was placed into the joint. Remaining meniscus and soft tissue were removed from the medial and lateral compartments. Posterior osteophytes removed from the condyles with an osteotome. T (more content not included)...[facility] HospitalComment on above:Result Comment: Electronically Signed By: Clint Boogie DO\.br\Date and Time Signed: 06/30/24 14:58 ESTOutpatient Surgery Discharge Instructionon 06-05-7445Ywhvjbjzbe Surgery Discharge InstructionOutpatient Surgery Discharge Instruction [place] [address] Patient Discharge Instructions PERSON INFORMATION Name: CARLY CESAR Ferdinand Date of : 1970 Current Date: 06/30/2024 [...] was present when discharge instructions were given Patient Signature Date Clinican/Nurse Signature Date Follow up: Pharmacy [...] to serve you. Thank you for choosing [facility] HERE ARE THE MEDICATION CHANGES THAT OCCURRED DURING YOUR HOSPITAL STAY New Medications [facility], [address], [place] [phone], [phone] acetaminophen-oxycodone (Percocet 5 mg-325 mg oral tablet) [...] times a day as needed for constipation. Refills:0. gabapentin (gabapentin 300 mg Cap) 1 Capsules By Mouth 3 times a day for 14 Days. Refills: 0. ketorolac (ketorolac 10 mg Tab) 1 Tablets By Mouth every 8 hours for 3 Days. Refills: 0. sulfamethoxazole-trimethoprim (Bactrim D.S. 800 mg-160 mg Tab) 1 Tablets By Mouth 2 times a day for7 Days. Refills: 0. Medications to Continue with [...] 100 mg Tab) PATIENT EDUCATION INFORMATION Instructions: [place], [place] [facility] DISCHARGE INSTRUCTIONS: TOTAL KNEE [...] exercises initiated by Physical Therapy in the ho (more content not included)...[facility] HospitalProperry county general hospitaluralon [id number] Patient: CARLY CESAR Age: 54 years Sex: Female : 1970 Associated Diagnoses: None Author: Jr Flor MD Postoperative Information Postoperative disposition: Postoperative disposition: To PACU. Optimetrix number: Optimetrix number [id number]. Anesthetic utilized: Regional: Spinal, ACB . Health [...] Discharge when meets criteria ( To home ).[facility] [facility] HospitalPro[facility]uralProced[facility] Patient: CARLY CESAR Age: 54 years Sex: [...] Complications: The patient tolerated the procedure as expected.[facility]Pro[facility] Patient: CARLY CESAR Age: 54 years Sex: [...] mL, IV, 150 mL/hr, Routine, Start date 256:30:00 EST, 6.7 hour(s), Total volume (mL): 1,000, [...] Pain 8-10 for 5 day(s), Stop date 257:24:00 EST, Routine, Start date 06/30/24 7:25:00 EST, 06/30/24 7:25:00 EST promethazine additive 12.5 mg + Sodium Chloride 0.9% IV [place] 50 mL (INT) 50 mL: IV Piggyback, Once PRN Nausea/Vomiting, Routine, Start date 06/30/24 8:05:00 EST, 151.5 mL/hr, Infuse over 20 minute(s),06/30/24 8:05:00 EST tranexamic acid additive + premix generic diluent 100 mL: 1,000 mg = 100 mL, Soln-IV, IV Piggyback,Once, Stop date 06/30/24 7:00:00 EST, Routine, Start date 06/30/24 7:00:00 EST, 200 mL/hr, Infuse over 30 minute(s) Prescriptions Prescribed Bactrim D.S. 800 mg-160 mg Tab: 1 tab(s), Oral, BID for 7 day(s), 14 tab(s), Refill(s) 0, [facility]/pharmacy #[id number], 159, cm, 06/18/24 7:16:00 EST, Height/Length Dosing, 77.5, kg, 06/18/24 7:16:00 EST, Weight Dosing CeleBREX 200 mg Cap: 200 mg = 1 cap(s), Oral, Daily, start after finishing ketorolac, # 60 cap(s), Refills(s) 0, Pharmacy: [facility]/pharmacy #[id number], 159, cm, 06/18/24 7:16:00 EST, Height/Length Dosing, 77.5, kg, 06/18/24 7:16:00 EST, Weight Dosing Colace 100 mg Cap: 100 mg = 1 cap(s), Oral, BID, PRN for constipation, # 20 cap(s), Refills(s) 0, Pharmacy: [facility]/pharmacy #[id number], 159, cm, 06/18/24 7:16:00 EST, Height/Length Dosing, 77.5, kg, 257:16:00 EST, Weight Dosing Percocet 5 mg-325 mg oral tablet: See Instructions, 40 tab(s), Refill(s) 0, 1-2 tab(s) Oral q4hr, [facility]/pharmacy #[id number], 159, cm, 06/18/24 7:16:00 EST, Height/Length Dosing, 77.5, kg, 06/18/24 7:16:00 EST, Weight Dosing aspirin 81 mg Oral EC Tab: 81 mg = 1 tab(s), Oral, Daily, X 90 day(s), # 90 tab(s), Refills(s) 0, Pharmacy: [facility] #[id number], 159, cm, 06/18/24 7:16:00 EST, Height/Length Dosing, 77.5, kg, 257:16:00 EST, Weight Dosing gabapentin 300 mg Cap: 300 mg = 1 cap(s), Oral, TID, X 14 day(s), # 42 cap(s), Refills(s) 0, [id number] 159, cm, 06/18/24 7:16:00 EST, Height/Length Dosing, 77.5, kg, 06/18/24 7:16:00 EST, Weight Dosing ketorolac 10 mg Tab: 10 mg = 1 tab(s), Oral, q8hr, X 3 day(s), # 9 tab(s), Refills(s) 0, [id number] 159, cm, 06/18/24 7:16:00 EST, [...] Daily, Refills(s) 0, Prophylaxis (more content not included)...[facility] SystemEROLOGYOrdered By: Mireya Sheridan on 70-38-8887DAA.beta subunit (U) [Moles/Vol]Negative NormalOKEENE M[facility] Man SeroU BetaHcg Qualon 23-44-4993SUJ.beta subunit (U) [Moles/Vol] NegativeNormalWexner Medical CenterComment on above:Performed By: #### [id number] #### [facility] [address], [place] [address]QL KNEE 1 OR 2 VIEWS RIGHTon 06-30-2024 Exam Date/Time: 06/30/2024 11:22 EST Reason for [...] Ka,r in mGy = na DAP = naFTMCRadiology, Radiologist, - 06/30/2024 Exam Date/Time: 06/30/2024 11:22 [...] in mGy = na DAP = na [facility] HealthcareRadiology Study observation (narrative)[facility] HealthcareXR KNEE 1 OR 2 VIEWS RIGHTOrdered By: Radiologist Radiology on 84-58-0022SEZI Healthcare Work Phone: XR Knee 1 or 2 Views Righton 74-66-8335ON Knee 1 or 2 Views RightExam Date/Time: 06/30/2024 11:22 EST Reason for Exam: [...] Ka,r in mGy = na DAP = naNormalWexner Medical CenterCT LOWER EXTREMITY W/O CONTRAST RIGHTon 06-21-2024 Exam Date/Time: 06/17/2024 13:52 EST Reason for [...] Zeyad Reza MD Transcribed by: GLORIA Technologist: LOWadiology, Radiologist, - 06/21/2024 Exam Date/Time: 06/17/2024 13:52 [...] Boogie FINAL REPORT Dictated: 06/21/2024 2:19 pm eZyad Reza MD Signed (Electronic Signature): 06/21/2024 2:19 pm Signed by: Zeyad Reza MD Transcribed by: GLORIA Technologist: INDRA STEWARD HealthcareCT LOWER EXTREMITY W/O CONTRAST RIGHTOrdered By: Radiologist Radiology on 36-94-9640RCQM Campanja Work Phone: ct Lower Extremity w/o Contrast Righton 34-76-2848HS Lower Extremity w/o Contrast RightExam Date/Time: 06/17/2024 13:52 EST Reason for Exam: [...] Zeyad Reza MD Transcribed by: GLORIA Technologist: [facility] Urineon 38-07-0838Oqyrcvhu identified Cx Nom (U)Microbiology PROCEDURE: Urine Culture [R1] SOURCE: U CleanCatch BODY SITE: COLLECTED DATE/TIME: 06/17/2024 13:00 EST RECEIVED DATE/TIME: 06/17/2024 16:59 EST START DATE/TIME: 06/17/2024 16:59 EST FREE TEXT SOURCE: Clint Boogie DO, DO, Jason A FINAL REPORTS Final Report [] Verified Date/Time: 06/19/2024 07:51 EST 5,000 cfu/ml Mixed skin contaminants Performing Locations R1: This test was performed at: [facility], [address] [place] [address], [phone]- , , BmlnweShnqypMercy Health St. Joseph Warren HospitalComment on above:Performed By: #### [id number] #### [facility] [address] [place] [address]06[address]TD Chest 2 Viewson 73-23-6032FV Chest 2 ViewsExam Date/Time: 06/17/2024 13:52 EST Reason for Exam: [...] Ka,r in mGy = na DAP = naNorCentervilleABO/Rh RetypeOrdered By: Corinne Brooks on 79-73-2244XVT/Rh Retype InterpPositiveInvalid Interpretation [facility] BB SubsectionComment on above:Performed By: #### [id number] #### [facility] [address] [place] [address]IEXUntjjjb By: SYSTEM SYSTEM on 45-99-4812Tbfoc gap [Moles/Vol] 12 mmol/LNormal6-16Remisol ChemComment on above:Performed By: #### [id number] #### [facility] [address], [place] [address]Wvbleoj [Mass/Vol]9.3 mg/dLNormal8.9-11.1Remisol ChemComment on above:Performed By: #### [id number] #### [facility] [address], [place] [address]Rgxfznlr [Moles/Vol]108 mmol/RPfjxnm377-914Ittzats ChemComment on above:Performed By: #### [id number] #### [facility] [address], [place] [address]IA9 [Moles/Vol]24 mmol/VZuplml93-67Azeywow ChemComment on above:Performed By: #### [id number] #### [facility] [address] [place] [address]Kbzsxozybk [Mass/Vol]0.9 mg/dLNormal0.5-1.3Remisol ChemComment on above:Performed By: #### [id number] #### [facility] [address], [place] [address]Litixlt [Mass/Vol]86 mg/pIBlwtua90-239Yqyhzlo ChemComment on above:Performed By: #### [id number] #### [facility] [address], [place] [address]Jqjeszhpw [Moles/Vol]4.1 mmol/LNormal3.5-5.3Remisol ChemComment on above:Performed By: #### [id number] #### [facility] [address], [place] [address]Ijdbsl [Moles/Vol]140 mmol/GFhzghg142-956Ywdgjph ChemComment on above:Performed By: #### [id number] #### [facility] [address], [place] [address]Ntif nitrogen [Mass/Vol]18 mg/dLNormal5-21Remisol ChemComment on above:Performed By: #### [id number] #### [facility] [address] [place] [address] 98[address]LEEqa 31-09-1808Iysy nitrogen/Creatinine [Mass ratio]20 No QguekNdslty20-12Whpvjp Thomas [facility]. Finan CenterComment on above:Performed By: #### [id number] #### [facility] [address] [place] [address]ILI w/ Auto DiffOrdered By: SYSTEM SYSTEM on 06-17-2024 Basophils/100 WBC (Bld)0.2 %Normal0.0-2.0Remisol HemeComment on above:Performed By: #### [id number] #### [facility] [address] [place] [address] 165[address]Nvuhirtzx/Leukocytes Auto (Bld) [Pure # fraction]0.0 E9/LNormal 0.0-0.2Remisol HemeComment on above:Performed By: #### [id number] #### [facility] [address] [place] [address]Dukztxnsmqs (Bld) [#/Vol]0.2 E9/LNormal0.0-0.5Remisol Heme Comment on above:Performed By: #### [id number] #### [facility] [address] [place] [address]Hhsnjugwsjo/100 WBC (Bld)2.0 %Normal0.0-8.0Remisol HemeComment on above:Performed By: #### [id number] #### [facility] [address] [place] [address] 11106Vgolwseqicy distribution width (RBC) [Ratio]13.4 %Normal 10.9-14.2Remisol HemeComment on above:Performed By: #### [id number] #### [facility] [address] [place] [address]Tqatioeytw (Bld) [Volume fraction]40.3 %Bphjuj65.0-46.0Remisol HemeComment on above:Performed By: #### [id number] #### [facility] [address] [place] [address] [place] [address]Vqmoakages (Bld) [Mass/Vol]13.6 g/lHGffggg45.0-16.0Remisol Heme Comment on above:Performed By: #### [id number] #### [facility] [address] [place] [address]Muxkwkmtetr (Bld) [#/Vol]2.4 E9/LNormal1.0-4.0Remisol Heme Comment on above:Performed By: #### [id number] #### [facility] [address] [place] [address]Fctnccygqjy/100 WBC (Bld)26.7 %Clwbch32.0-50.0Remisol Heme Comment on above:Performed By: #### [id number] #### [facility] [address] [place] [address] 96659LAY (RBC) [Entitic mass]30.2 prRadhum29.0-34.0Remisol Heme Comment on above:Performed By: #### [id number] #### [facility] [address] [place] [address] 13737JWHY (RBC) [Mass/Vol]33.8 g/bVHwtmvk70.4-36.0Remisol Heme Comment on above:Performed By: #### [id number] #### [facility] [address] [place] [address] 36674QOK (RBC) [Entitic vol]89.3 yTQjsqxq80.0-100.0Remisol Heme Comment on above:Performed By: #### [id number] #### [facility] [address], [place] [address]Wxlwtwmfc (Bld) [#/Vol]0.6 E9/LNormal0.2-1.0Remisol HemeComment on above:Performed By: #### [id number] #### [facility] [address] [place] [address]Nfklbrqntwr (Bld) [#/Vol]5.8 E9/LNormal2.0-7.5Remisol Heme Comment on above:Performed By: #### [id number] #### [facility] [address], [place] [address]Hiowqplbjpk/100 WBC (Bld)64.7 %Siqmpq24.0-75.0Remisol Heme Comment on above:Performed By: #### [id number] #### [facility] [address], [place] [address]Hcpgawcb742.0 E9/TKjmdus762.0-500.0Remisol HemeComment on above:Performed By: #### [id number] #### [facility] [address], [place] [address]Vetfilcs mean volume (Bld) [Entitic vol]9.8 fLNormal6.4-10.8 Remisol HemeComment on above:Performed By: #### [id number] #### [facility] [address], [place] [address]TAT (Bld) [#/Vol]4.5 E12/LNormal4.3-5.9Remisol HemeComment on above:Performed By: #### [id number] #### [facility] [address] [place] [address]LES corrected for nucl RBC Auto (Bld) [#/Vol]8.9 E9/LNormal 4.0-11.0Remisol HemeComment on above:Performed By: #### [id number] #### [facility] [address] [place] [address]ITZWMDEIBThafnqb By: SYSTEM SYSTEM on 08-01-9904Zowm nitrogen/Creatinine [Mass ratio]20 mg/hbUhkaxh95 - 20Remisol ChemCT LOWER EXTREMITY W/O CONTRAST RIGHTon 79-07-8513Awgrvlbag Study observation (narrative) [facility] HealthcareHEMATOLOGYOrdered By: SYSTEM SYSTEM on 61-90-4052Jimqlausu/100 WBC (Bld)6.4 %Normal4.0 - 14.0 %Remisol HemeUA WITH CULT RFLXon 06-17-2024 BACTERIA:PRTHR:PT:URINE:ORD:AUTOMATEDTraceTrace /HPFNOSD Healthcare BILIRUBIN:PRTHR:PT:URINE:ORD:TEST STRIP.AUTOMATEDNegativeNegative mg/dLCox SouthEPITHELIAL CELLS.SQUAMOUS:NARIC:PT:URINE SED:QN:AUTOMATED COUNT3-4 CD:[id number] HealthcareERYTHROCYTES:PRTHR:PT:URINE SED:ORD:MICROSCOPY.LIGHT 0-3NOSt. Louis VA Medical Center CLARITY:TYPE:PT:URINE:NOM:ClearClearParkland Health Center CLASS:TYPE:PT:URINE COLLECTION METHOD:NOM:*Clean CatchParkland Health Center COLOR:TYPE:PT:URINE:NOM:AUTODark-YellowAbnormalYellowCox SouthComment on above:Microscopic readings are only performed on those samples that meet specific criteria set forth by [facility] PH:LSCNC:PT:URINE:QN:TEST STRIP6.55.0 - 9.0[facility] SPECIFIC GRAVITY:RDEN:PT:URINE:QN:TEST STRIP1.0111.005 - 1.030[facility] GLUCOSE:PRTHR:PT:URINE:ORD:TEST STRIPNegativeNegative mg/dLCox South HEMOGLOBIN:MCNC:PT:URINE:SEMIQN:TEST STRIP.AUTOMATEDNegativeNegative mg/dLCox SouthInterpretation and review of laboratory resultsAbTrinity Health [facility] Hospital KETONES:PRTHR:PT:URINE:ORD:TEST STRIP.AUTOMATEDNegativeNegative mg/dLCox SouthLEUKOCYTE ESTERASE:PRTHR:PT:URINE:ORD:TEST STRIP.QYIKNJQYL724 Chante/uL AbnormalNegative CD:[id number] SouthLEUKOCYTES:NARIC:PT:URINE SED:QN:AUTOMATED COUNT0-5NOSaint John's HospitalMUCUS:PRTHR:PT:URINE:ORD:AUTOMATEDTrace Negative CD:[id number] SouthNITRITE:PRTHR:PT:URINE:ORD:TEST STRIP.AUTOMATED1+AbnormalNegative mg/dLNOSaint John's Hospital PROTEIN:PRTHR:PT:URINE:ORD:TEST STRIPNegativeNegative mg/dLNOSD Healthcare UROBILINOGEN:MCNC:PT:URINE:SEMIQN:TEST STRIPNegativeNegative mg/dLCox SouthOriginal Ordering Provider: DO Clint Sanchez HealthcareUA with Cult Rflxon 73-16-2093Mnxhwgnw Auto Ql (U)TraceNormalTraceWexner Medical CenterComment on above:Performed By: #### [id number] #### [facility] [address], [place] [address]Wupoyoy (U)ClearNormalClearWexner Medical CenterComment on above:Performed By: #### [id number] #### [facility] [address], [place] [address]Fzugi (U)Dark-YellowAbnormalYellowWexner Medical Center Comment on above:Result Comment: Microscopic readings are only performed on those samples that meet specific criteria set forth by [facility].Performed By: #### [id number] #### [facility] [address], [place] [address]Tartoesqxa cells.squamous Auto (Urine sed) [#/Area]3-4Invalid Interpretation CodeWexner Medical CenterComment on above:Performed By: #### [id number] #### [facility] [address], [place] [address]Wstznbzwq esterase Auto test strip Ql (U)250 Chante/uLAbnormal NegativeWexner Medical CenterComment on above:Performed By: #### [id number] #### [facility] [address], [place] [address]Wrusj Auto Ql (U)TraceNormalNegativeWexner Medical Center Comment on above:Performed By: #### [id number] #### [facility] [address], [place] [address]Xyevqlq Auto test strip Ql (U)1+ mg/dLAbnormalNegativeWexner Medical CenterComment on above:Performed By: #### [id number] #### [facility] [address], [place] [address]gV (U)6.5 [pH]Invalid Interpretation Code5.0-9.0Wexner Medical CenterComment on above:Performed By: #### [id number] #### [facility] [address] [place] [address]NYI Ql (U)3-2Rectvr6-0LqetcpMemorial Health System Selby General HospitalComment on above:Performed By: #### [id number] #### [facility] [address] [place] [address]Cqcnzzso gravity (U) [Rel density]1.011Invalid Interpretation Code1.005-1.030Wexner Medical CenterComment on above:Performed By: #### [id number] #### [facility] [address] [place] [address]RJU Auto (Urine sed) [#/Area]4-5Zkmfxj8-7OhnnlwMemorial Health System Selby General HospitalComment on above:Performed By: #### [id number] #### [facility] [address] [place] [address]Ayxm of Urine collection methodClean CatchNormalWexner Medical CenterComment on above:Performed By: #### [id number] #### [facility] [address] [place] [address]GA with Cult RflxOrdered By: SYSTEM SYSTEM on 06-17-2024 Bilirubin Ql (U)NegativeNormalNegativeOKEENE [facility] UA Auto SSComment on above:Performed By: #### [id number] #### [facility] [address] [place] [address]Abkwuhi Ql (U)NegativeNormalNegativeOKEENE M[facility]ICIP[facility] UA Auto SSComment on above:Performed By: #### [id number] #### [facility] [address] [place] [address]Kqunwrmtbc Auto test strip (U) [Mass/Vol]NegativeNormalNegative [facility] UA Auto SSComment on above:Performed By: #### [id number] #### [facility] [address] [place] [address] 465[address]Lesnouw Auto test strip Ql (U)NegativeNormalNegativeOKEENE M[facility] UA Auto SSComment on above:Performed By: #### [id number] #### [facility] [address], [place] [address]Dqyqjez Ql (U)NegativeNormalNegativeOKEENE M[facility]IP[facility] UA Auto SSComment on above:Performed By: #### [id number] #### [facility] [address], [place] [address]Gsuuykaagkij (U) [Mass/Vol]NegativeNormalNegativeOKEENE M[facility]ICIPAL [facility] UA Auto SSComment on above:Performed By: #### [id number] #### [facility] [address], [place] [address]FTXTHDLMWXJugcnjh By: SYSTEM SYSTEM on 21-96-5810Eromboes Auto Ql (U)Trace /HPFNormalTrace/HPFOKEENE MUNICIPAL [facility]OSP[facility] UA Auto SSClarity (U)Clear (06/17/24 1:00 PM)NormalClearFASCENSION ST. [facility] UA Auto SSColor (U)Dark-Yellow 1 *ABN* (06/17/24 1:00 PM)Invalid Interpretation CodeYellowOKEENE MUNICIPAL HOSPITAL [facility] UA Auto SSComment on above:Interpretive Data: Microscopic readings are only performed on those samples that meet specific criteria set forth by [facility].Epithelial cells.squamous Auto (Urine sed) [#/Area]3-4 graded/HPF Invalid Interpretation CodeOKEENE MUNICIPAL [facility]OSP[facility] [place] UA Auto SSLeukocyte esterase Auto test strip Ql (U)250 Chante/uL Chante/uLInvalid Interpretation CodeNegativeLeu/uLOKEENE M[facility]ICIP[facility] UA Auto SS Mucus Auto Ql (U)Trace graded/LPFNormalNegativegraded/LPFFTMC UA Auto SSNitrite Auto test strip Ql (U)1+ mg/dLInvalid Interpretation CodeNegativemg/dLOKEENE MUNICIPAL [facility] [place] UA Auto SSpH (U)6.5 *NA* (06/17/24 1:00 PM)Invalid Interpretation Code5.0 - 9.0[facility] UA Auto SSRBC Ql (U)0-3 graded/HPFNormal0-3graded/HPFFT UA Auto SSSpecific gravity (U) [Rel density] 1.011 *NA* (06/17/24 1:00 PM)Invalid Interpretation Code1.005 - 1.030[facility] UA Auto SSWBC Auto (Urine sed) [#/Area]0-5 graded/HPFNormal0-5graded/HPFOKEENE MUNICIPAL [facility]OSP[facility] UA Auto SSURINALYSIS Ordered By: Sofie Wells on 64-35-2780CQ Spec DescClean Catch (06/17/24 1:00 PM)NormalOKEENE MUNICIPAL [facility] UA Auto SSeGFROrdered By: SYSTEM SYSTEM on 06-17-2024 eGFR76 mL/min/1.73 b2Ovdxts>=59Remisol ChemComment on above:Performed By: #### [id number] #### [facility] [address], [place] [address]Bgmot 1995 panelon 02-37-2366Pooajgbnerg [Mass/Vol]140 mg/dLLow 150-200ProJoint Venture Between Adventhealth And Texas Health ResourcesComment on above:Performed By: #### [id number] #### [facility] ([id number]) [address], [address] [place], [place] [address]Flrepavdris in HDL [Mass/Vol]46 mg/dLNormal>39ProJoint Venture Between Adventhealth And [facility] Health ResourcesComment on above:Result Comment: HDL <40 mg/dL - High Risk HDL > or = 40mg/dL- Desirable HDL >60 mg/dL - Negative Risk Performed By: #### [id number] #### [facility] ([id number]) [address], [address] [place], [place] [address]Hbmfziygdgz in LDL [Mass/Vol]64 mg/dLNormal<130ProJoint [facility] Between [facility]health [facility] Health ResourcesComment on above:Result Comment: LDL <100 mg/dL - Desirable LDL >160 mg/dL - High Risk Performed By: #### 24406-3 #### [facility] ([id number]) [address], [address] [place], [place] [address]Pkzapixgkic in VLDL [Mass/Vol]30 mg/dLNormal0-30ProJoint [facility] Between [facility]health [facility] Health ResourcesComment on above:Performed By: #### 88208-5 #### [facility] ([id number]) [address], [address] [place], [place] [address]QMMZGAKTMTN:HDL3.3Vmaftv9.0-5.0ProJoint Venture Between [facility]health And [facility] Health ResourcesComment on above:Performed By: #### [id number] #### [facility] ([id number]) [address], [address] [place], [place] [address]Fgpmvgphkgsu [Mass/Vol]152 mg/oKTwqy57-585HazOkovdtJoint Venture Between Adventhealth And Texas Health ResourcesComment on above:Performed By: #### 13641-2 #### [facility] ([id number]) [address], [address] [place], [place] [address]HB Knee - right 3 Viewson 27-66-2480[place] Result: Three views, bilateral PA weight-bearing, sunrise, lateral of the right knee(s) taken today and saved to the permanent medical record are reviewed. Complete loss of medial joint space at right knee, mild PF arthritis with slight lateral tilting of both patella. Moderate lateral compartment narrowing at right knee as well.[facility] HealthcareXR Knee - right 3 Viewson 02-71-9189Bqndvxdco Study observation (narrative)[facility] HealthcareXR knee RT 3V - NOT FOR ER USEon 32-42-8611RB knee RT 3V - NOT [facility] [address] [place] [address] XRay Report Signed Patient: Carly Cesar MR#: [id number] : 1970 Acct:[id number] Age/Sex: 54 / F ADM Date: 02/05/24 Loc: [facility] Room: Type: [facility] Attending Dr: Mookie Ospina DO Copies to: [...] Alyssa Ambriz M.D.02/05/2024 3:31 PM Dictation Location: [place] [address] Transcribed By: [facility] 02/05/24 1531 Dictated By: Alyssa Ambriz MD 02/05/24 1529 Signed By: 02/05/24 1531[facility] GroupLaboratory - Chemistry and Chemistry - challengeon 83-05-1287Kvqsfboluwa [Mass/Vol]139 mg/dLAccess Hospital DaytonCholesterol in HDL [Mass/Vol]43 mg/dLAccess Hospital DaytonCholesterol in LDL [Mass/Vol]46 mg/dLAccess Hospital DaytonTriglyceride [Mass/Vol]252 mg/dLAccess Hospital DaytonNo Panel Informationon 13-18-3601GCMA Sthreycrdut56 mg/dLAccess Hospital DaytonHCG ( test) IA.rapid Ql (U)Ordered By: Farrah Hinojosa on 12-05-2023 HCG ( test) Ql (U)NegativeAccess Hospital DaytonAlanine aminotransferase [Enzymatic activity/volume] in Serum or PlasmaOrdered By: Mookie Ospina on 65-73-6665XCY [Catalytic activity/Vol]19 U/L7-52Access Hospital DaytonAlbumin [Mass/volume] in Serum or Plasma by Bromocresol green (BCG) dye binding methoOrdered By: Mookie Ospina on 74-02-7557Qyehdir BCG dye [Mass/Vol]4.2 g/dL3.5-5.7FSelect Medical Specialty Hospital - TrumbullAlkaline phosphatase [Enzymatic activity/volume] in Serum or PlasmaOrdered By: Mookie Ospina on 14-93-8396FXR [Catalytic activity/Vol]58 U/J72-344CfkwkvbmeAccess Hospital DaytonAspartate aminotransferase [Enzymatic activity/volume] in Serum or Plasma Ordered By: Mookie Ospina on 59-97-2635RYS [Catalytic activity/Vol]24 U/L13-39 [facility] Hospital DaytonBasophils Auto (Bld) [#/Vol]Ordered By: Mookie Ospina on 10-93-2133Csdpxaaov (Bld) [#/Vol]0.0 10*3/uL0.0-0.2FSelect Medical Specialty Hospital - TrumbullBasophils/100 WBC Auto (Bld)Ordered By: Mookie Ospina on 12-01-2023 Basophils/100 WBC (Bld)0.4 %.Access Hospital DaytonBilirubin.total [Mass/volume] in Serum or PlasmaOrdered By: Mookie Ospina on 54-33-6019Kgkwjfkyt [Mass/Vol]0.6 mg/dL0.3-1.0Access Hospital DaytonCalcium [Mass/volume] in Serum or PlasmaOrdered By: Mookie Ospina on 72-21-1810Rfnnewn [Mass/Vol]8.8 mg/dL8.6-10.3FSelect Medical Specialty Hospital - TrumbullCarbon dioxide, total [Moles/volume] in Serum or PlasmaOrdered By: Mookie Ospina on 86-66-4388FU7 [Moles/Vol]29.7 mmol/L21.0-31.0Access Hospital DaytonChloride [Moles/volume] in Serum or PlasmaOrdered By: Mookie Ospina on 00-81-0776Ycrkjnbk [Moles/Vol]103 mmol/M29-664BhsqxwwqvAccess Hospital DaytonCreatinine [Mass/volume] in Serum or PlasmaOrdered By: Mookie Ospina on 05-21-3135Isiiysjndj [Mass/Vol]1.02 mg/dL0.60-1.20[facility] DaytonEosinophils Auto (Bld) [#/Vol]Ordered By: Mookie Ospina on 45-53-4422Toeczbypyvw (Bld) [#/Vol]0.2 10*3/uL0.0-0.45[facility] DaytonEosinophils/100 WBC Auto (Bld) Ordered By: Mookie Ospina on [id number]/100 WBC (Bld)2.4 %.[facility] DaytonErythrocyte distribution width Auto (RBC) [Ratio]Ordered By: Mookie Ospina on 54-75-5318Inozrmypysb distribution width (RBC) [Ratio]13.4 % 11.9-15.3FSelect Medical Specialty Hospital - TrumbullGlobulin Calc (S) [Mass/Vol]Ordered By: Mookie Ospina on 65-19-2171Hispjyjw (S) [Mass/Vol]2.4 g/dLAccess Hospital DaytonGlucose [Mass/volume] in Serum or PlasmaOrdered By: Mookie Ospina on 59-06-2015Xkletdb [Mass/Vol]90 mg/wL66-967WwhsgehczAccess Hospital [place] Hematocrit Auto (Bld) [Volume fraction]Ordered By: Mookie Ospina on 12-01-2023 Hematocrit (Bld) [Volume fraction]41.6 %34.0-46.4FSelect Medical Specialty Hospital - TrumbullHemoglobin [Mass/volume] in BloodOrdered By: Mookie Ospina on 12-01-2023 Hemoglobin (Bld) [Mass/Vol]14.1 g/dL11.8-15.4FSelect Medical Specialty Hospital - Trumbull Leukocytes [#/volume] corrected for nucleated erythrocytes in Blood by Automated counOrdered By: Mookie Ospina on 89-50-8778LFN corrected for nucl RBC Auto (Bld) [#/Vol]8.1 10*3/uL3.8-11.6FSelect Medical Specialty Hospital - TrumbullLymphocytes Auto (Bld) [#/Vol]Ordered By: Mookie Ospina on 50-91-9544Ppsvhmunxxc (Bld) [#/Vol]1.8 10*3/uL1.00-4.8Access Hospital DaytonLymphocytes/100 WBC Auto (Bld) Ordered By: Mookie Ospina on 46-39-6079Izbizipvmnv/100 WBC (Bld)21.8 %.Access Hospital DaytonMCH Auto (RBC) [Entitic mass]Ordered By: Mookie Ospina on 27-57-2290ZVL (RBC) [Entitic mass]29.8 pg24.7-34.3FSelect Medical Specialty Hospital - TrumbullMCHC Auto (RBC) [Mass/Vol]Ordered By: Mookie Ospina on 93-47-0889PSVU (RBC) [Mass/Vol]33.9 g/dL32.0-35.0Access Hospital DaytonMCV Auto (RBC) [Entitic vol]Ordered By: Mookie Ospina on 53-83-2475WDT (RBC) [Entitic vol]88.0 hX20-974UdofeoizgAccess Hospital DaytonMonocytes Auto (Bld) [#/Vol]Ordered By: Mookie Ospina on 73-33-7685Gzqousgge (Bld) [#/Vol]0.5 10*3/uL0.0-0.8Access Hospital DaytonMonocytes/100 WBC Auto (Bld)Ordered By: Mookie Ospina on 89-78-5687Psbdledif/100 WBC (Bld)5.9 %.[facility] Neutrophils Auto (Bld) [#/Vol]Ordered By: Mookie Ospina on 83-99-2483Yksycrdiceh (Bld) [#/Vol]5.7 10*3/uL1.8-7.7FSelect Medical Specialty Hospital - TrumbullNeutrophils/100 WBC Auto (Bld)Ordered By: Mookie Ospina on 51-32-8444Ysuluzfjdia/100 WBC (Bld) 69.5 %.Access Hospital DaytonNo Panel InformationOrdered By: Mookie Ospina on 77-35-7116Rixvevetk GFR (CKD-EPI)> 60.0 mL/MinAccess Hospital DaytonPharmacy Creatinine Clearance (ChemN/AFSelect Medical Specialty Hospital - TrumbullNucleated erythrocytes [Presence] in Blood by Automated countOrdered By: Mookie Ospina on 78-05-2299Mnmyjwlht RBC Auto Ql (Bld)0.1 /100{WBC}0-0.5FSelect Medical Specialty Hospital - TrumbullPlatelet mean volume Auto (Bld) [Entitic vol]Ordered By: Mookie Ospina on 78-80-5105Ouljugqs mean volume (Bld) [Entitic vol]9.1 fL6.3-10.7 Access Hospital DaytonPlatelets Auto (Bld) [#/Vol]Ordered By: Mookie Ospina on 32-63-9985Fvtpvskun (Bld) [#/Vol]250 10*3/xW112-673UisqlqnccAccess Hospital DaytonPotassium [Moles/volume] in Serum or PlasmaOrdered By: Mookie Ospina on 45-78-8533Gdkhrylht [Moles/Vol]3.7 mmol/L3.5-5.1FSelect Medical Specialty Hospital - TrumbullProtein [Mass/volume] in Serum or PlasmaOrdered By: Mookie Ospina on 66-40-0857Qtpbnmb [Mass/Vol]6.6 g/dL6.4-8.9[facility] RBC Auto (Bld) [#/Vol]Ordered By: Mookie Ospina on 34-60-0169YRQ (Bld) [#/Vol] 4.72 10*6/uL3.60-5.00[facility] Ferry Hospitalerum or plasma albumin/globulin mass ratioOrdered By: Mookie Ospina on 12-01-2023 Albumin/Globulin [Mass ratio]1.8 {ratio}[facility] Ferry Hospitalerum or plasma anion gap determinationOrdered By: Mookie Ospina on 49-34-4463Oodtb gap [Moles/Vol]10.0 mmol/L6.0-15.0[facility]erry Hospitalodium [Moles/volume] in Serum or PlasmaOrdered By: Mookie Ospina on 12-99-7010Ypeelz [Moles/Vol]139 mmol/V563-567HdbmfzkimAccess Hospital DaytonUrea nitrogen [Mass/volume] in Serum or PlasmaOrdered By: Mookie Ospina on 02-43-4364Tyqw nitrogen [Mass/Vol]16 mg/dL7-25Access Hospital DaytonWBC Auto (Bld) [#/Vol]Ordered By: Mookie Ospina on 05-69-9360NJZ (Bld) [#/Vol]8.1 10*3/uL 3.8-11.6FSelect Medical Specialty Hospital - Trumbull36on 07-94-607935Dclbca and told patient to try hinged braceNormalUniversity of [facility]36on 09-83-778956Evrqsmk has questions about right knee, wonders if milagro can suggest a knee brace for her over the phone.NormalUnUniversity Hospitals TriPoint Medical CenterNo Panel Informationon 17-08-5837Iqtdgeg Stimulating Hormone 3rd Gen1.32Access Hospital DaytonLaboratory - Chemistry and Chemistry - challengeon 99-82-0410Oudkqygjm Ql (U)NegativeAccess Hospital DaytonGlucose (U) [Mass/Vol]NegativeAccess Hospital DaytonKetones Ql (U)traceAccess Hospital DaytonpH (U)6.5 [pH][facility] Ferry Hospitalpecific gravity (U) [Rel density]1.025Access Hospital DaytonUrobilinogen (U) [Mass/Vol]1.0 mg/dLAccess Hospital DaytonLaboratory - Specimen informationon 85-49-4129Uhwrwqirza (U)cloudyAccess Hospital Dayton Color (U)yellowAccess Hospital DaytonLaboratory - Urinalysison 05-82-7172Tsqzpqjzs esterase Test strip Ql (U)smallAccess Hospital DaytonNitrite Ql (U)Madison HealthProtein Ql (U) NegativeAccess Hospital DaytonNo Panel Informationon 71-11-8681Lhyay Occult BloodsmAshtabula County Medical CenterUrine culture routineOrdered By: Darlin Florian on 71-05-8671Ctmttlzq identified Cx Nom (U)2 DaysAccess Hospital DaytonPOCT EKGon 88-11-2468UolJpcicdKnox Community Hospital36on 21-74-440735Vwlcpo and spoke with patient she is going to check with PCP first and than call us back if she needs an appointment.[facility]36 Patient last spoke with Don 06/30/23 in regards to injection and never received a call back with an answer, please call patient thank Suhailunc health pardeeUnUniversity Hospitals TriPoint Medical CenterL Inj/Asp: R subacromial bursaon 77-21-7355EgkhaFiona Winn NP 07/14/2023 9:24 AM L Inj/Asp: [...] discussed. Consent was given by the patient. [facility]36on 37-28-258085Szgn, thanksNormalUniversity of Wilson N. Jones Regional Medical CenterOrders Only68-40-9757Jcthqb [id number] Carly Cesar 1970 F Date Provider Department Center 07/08/2023 MARISELA SCHWAB MP MPORTHO Family History Family history unknown: YesNormalUniversity of [facility]. [facility]36on 49-24-833302Qnibout calling in for refill of mobic. [facility] [place]NormalUniversbluffton hospital of [facility] Medical CenterTelephoneon 74-80-8487Psbivbafs [id number] Carly Cesar 1970 F Provider Department Center 07/07/2023 MARISELA SCHWAB MPRTCATALINA Family History Family history unknown: YesNormalUniversity of [facility]36on 35-90-953619Yegdxn and told patient we resubmittedNormalUniversity of [facility]. [facility] Regional Medical CenterOrders Onlyon 68-54-2848Cpvemh [id number] Carly Cesar 1970 Date Provider Department Center 06/30/2023 SANDRA SALMERON MP ORTHO MPORTHO Family History Family history unknown: YesNormalUniversity of [facility] Center36on 91-83-117411Ye lillian approvedNormalUniversChillicothe Hospital Procedure Visiton 55-70-6154Tdpqjfphd [id number] Carly Cesar 1970 Date Provider Department Center 06/05/2023 MARISELA SCHWAB MP MPORTHO Family History Family history unknown: Yes Level of Service:79335 GA OFFICE/OUTPATIENT ESTABLISHED LOW MDM 20 MIN Reason for Visit and Comments: Follow-up [576672] - No pain at the moment, but has been having pain since the CSI wore off.NormalSt. Elizabeth HospitalLetter (Out)on 04-16-7127Lcckem (Out)[id number] Carly Cesar 1970 Provider Department Center 03/03/2023 None-None [facility] Family History Family history unknown: YesNormalUniversity of Wilson N. Jones Regional Medical CenterFoHCA [facility] 26-05-8011Yeglnc-[id number] Carly Cesar 1970 Provider Department Center 02/28/2023 MARISELA SCHWAB MP Family History Family history unknown: Yes Level of Service:87857 GA OFFICE/OUTPT VISIT,PROCEDURE ONLY Reason for Visit and Comments: Pain [136] - ZilrettaNormalUnivers[address] Spoke with patient and made an appointment for 02/28/23NormalUni[address] 75-07-864888Mfiazct called in stating she got a denial letter in the mail on Friday for the injection you requested. Wants to know what you want to do next?[facility] HospitalTelephoneon [id number] Carly Cesar 1970 Provider Department Center 02/12/2023 MIKE LOCKHART MP Family History Family history unknown: YesNormalUniversCleveland Clinic [facility] 05-81-9441Cwcqwt-[id number] Carly Cesar 1970 Provider Department Center 01/31/2023 MARISELA SCHWAB MP Family History Family history unknown: Yes Level of Service:72312 GA OFFICE/OUTPATIENT ESTABLISHED LOW MDM 20-29 MIN Reason for Visit and Comments: Edema [0218943432] - R knee pain with ,mild edema Pain [136] - R knee pain with ,mild edema Follow-up [792619] - R knee pain with ,mild edemaNoalUniMercy Health St. Joseph Warren HospitalMRI KNEE RT WO CONon 28-06-7824MGW KNEE RT WO CONEXAM: MRI KNEE RT WO CON COMPARISON: Right [...] Electronically authenticated by: FARRAH GAINES Date: 2022-06-25 17:30NoUniversity Hospitals Ahuja Medical Center AUTO DIFFon 59-47-0672EAUW #0.0 103/ulNormal0.0-0.1The [facility] SystemComment on above:Performed By: #### CBC #### [facility] [address] [place] [address] Dr. Asya Wassermansophils/100 WBC (Bld)0.4 %Normal0.2-2.0The [facility] Comment on above:Performed By: #### CBC #### [facility] [address] [place] [address] Dr. Asya Mora #0.2 103/ulNormal0.0-0.7The [facility] SystemComment on above: Performed By: #### CBC #### [facility] [address] [place] [address] Dr. Asya Dickersonosinophils/100 WBC (Bld)2.5 %Normal0.9-7.0The [facility] Comment on above:Performed By: #### CBC #### [facility] [address] [place] [address] Dr. Asya Dickersonrythrocyte distribution width (RBC) [Ratio]12.4 %Hebqbo12.0-15.0 The [facility] SystemComment on above:Performed By: #### CBC #### [facility] [address] [place] [address] Dr. Asya MitchellHematocrit (Bld) [Volume fraction]41.8 %Ulwwbh38.0-48.0The [facility] SystemComment on above:Performed By: #### CBC #### [facility] [address] [place] [address] Dr. Asya MitchellHemoglobin (Bld) [Mass/Vol]14.0 g/yCXhjpeg93.0-16.0The [facility] SystemComment on above:Performed By: #### CBC #### [facility] [address] [place] [address] Dr. Asya Unger #0.03 10e3/ulNormal0.00-0.03The [facility] SystemComment on above:Performed By: #### CBC #### [facility] [address] [place] [address] Dr. Asya Unger %0.4 %Normal0.0-0.5The [facility] SystemComment on above: Performed By: #### CBC #### [facility] [address] [place] [address] Dr. Asya Shields #2.3 103/ulNormal1.2-3.8The [facility] SystemComment on above:Performed By: #### CBC #### [facility] [address] [place] [address] Dr. Asya Hortamphocytes/100 WBC (Bld)27.1 %Phnaxf33.5-60.0The [facility] SystemComment on above:Performed By: #### CBC #### [facility] [address] [place] [address] Dr. Asya Mercado DIFF REQNONormalThe [facility] Health SystemComment on above: Performed By: #### CBC #### [facility] [address] [place] [address] Dr. Asya Brock (RBC) [Entitic mass]29.6 lvHptofe61.7-34.0The [facility] SystemComment on above:Performed By: #### CBC #### [facility] [address] [place] [address] Dr. Asya Philip (RBC) [Mass/Vol]33.5 g/yIOcdzpa97.9-35.2The [facility] SystemComment on above:Performed By: #### CBC #### [facility] [address] [place] [address] Dr. Asya Underwood (RBC) [Entitic vol]88.4 sOConhrw50.0-99.0The [facility] SystemComment on above:Performed By: #### CBC #### [facility] [address] [place] [address] Dr. Asay Post #0.6 103/ulNormal0.3-0.8The [facility] SystemComment on above:Performed By: #### CBC #### [facility] [address] [place] [address] Dr. Asya Delgadoocytes/100 WBC (Bld)7.4 %Normal1.7-12.0[facility] Comment on above:Performed By: #### CBC #### [facility] [address] [place] [address] Dr. Asya Nicholas #5.2 103/ulNormal1.4-6.5The Cleveland Clinic Foundationment on above:Performed By: #### CBC #### [facility] [address] [place] [address] Dr. Asya Milianutrophils/100 WBC (Bld)62.2 %Umssbl50.0-75.0The [facility] SystemComment on above:Performed By: #### CBC #### [facility] [address] [place] [address] Dr. Asya MitchellPlatelet mean volume (Bld) [Entitic vol]10.5 fLNormal9.5-13.5The [facility] SystemComvibra hospital of [facility] [place] on above:Performed By: #### CBC #### [facility] [address] [place] [address] Dr. Asya MitchellPLT248 103/hnIqtego169-761Rak [facility] SystemComvibra hospital of [facility] [place] on above: Performed By: #### CBC #### [facility] [address] [place] [address] Dr. Asya MitchellRBC4.73 106/ulNormal4.20-5.40The [facility] SystemComvibra hospital of [facility] [place] on above:Performed By: #### CBC #### [facility] [address] [place] [address] Dr. Asya MitchellWBC8.4 103/ulNormal4.0-11.0The [facility] SystemComvibra hospital of [facility] [place] on above: Performed By: #### CBC #### [facility] [address] [place] [address] Dr. Asya MitchellFERRITINon 37-11-4349Peiulhir [Mass/Vol]46.0 ng/mLNormal8.0-252.0 The [facility] SystemComvibra hospital of [facility]heastern [place] on above:Performed By: #### FERR, IRON #### [facility] [address] [place] [address] Dr. Asya Iraheta THYROXINE INDEX T7on 83-87-5605DTF9.72Tyuvcg9.30-4.50The [facility] on above:Performed By: #### T7, TSH #### [facility] [address] [place] [address] Dr. Asya MitchellT3U30.0 %Oicrgr27.0-39.0The [facility] SystemComment on above: Performed By: #### T7, TSH #### [facility] [address] [place] [address] Dr. Asya MitchellT4 [Mass/Vol]7.70 ug/dLNormal4.80-13.90[facility] Comment on above:Performed By: #### T7, TSH #### [facility] [address] [place] [address] Dr. Asya Hagen 23-57-7639Gcma [Mass/Vol]85.0 ug/vWYavsry33.0-170.0The [facility] SystemComment on above:Performed By: #### FERR, IRON #### [facility] [address] [place] [address] Dr. Asya Macdonald 17-60-7934FBS0.771 uIU/mLNormal0.358-3.740The [facility] SystemComment on above:Performed By: #### FERR, IRON #### [facility] [address] [place] [address] Dr. Asya MitchellCT SINUSES WO CONon 17-41-1424SC SINUSES WO CONEXAMINATION: CT SINUSES WO CON HISTORY: Chronic sinusitis [...] Electronically authenticated by: BETH ROACH Date: 2022-04-19 16:19[facility] - TrumbullMG MAMM SCREEN 3D EUGENIE CADon 52-19-0393YB MAMM SCREEN 3D EUGENIE CAD Patient: CARLY CESAR Exam Date: 01/18/2022 : 1970 Gender:F Ordering : DR. CONSUELO BRITO Admission #: [id number] Family : DR CRISTIAN MUÑOZ . Order #: [id number] CLICK HERE TO VIEW EXAM RADIOLOGY REPORT [...] breast cancer at age 61. LOCATION: [facility] BREAST COMPOSITION: Heterogeneously dense,which may obscure small [...] by: Jada Prieto MD on 01/18/2022 at 08:59[facility] Covid-19 PCR (CVDTBH)on 84-75-9908OZDA-CoV-2 (COVID-19) RNA JAMARCUS+probe Ql (Unsp spec)Not detectedNormalNOT DETECTEDThe [facility] Health SystemComment on above:Result Comment: This test is not yet approved or cleared by the [place] FDA. When there are no FDA-approved or cleared tests available, and other criteria are met, FDA can make tests available under an emergency access mechanism called an Emergency Use Authorization (EUA). The EUA for this test is supported by the [place] of Health and Human Service's (HHS's) declaration [...] of clinical signs and symptoms consistent with SARS-CoV-2.Performed By: #### CVDTBH #### [facility] [address] [place] [address] Dr. Asya MitchellXR foot RT min 3V*on 20-58-8911AO foot RT min 3V*[facility] [employer] Other XR foot RT min 3V*[facility] [employer] Other XR foot RT min 3V*[address] [place] [address] [employer] Other XR foot RT min 3V*[place], [place] [address]Rjufo [employer] Other XR foot RT min 3V*[facility] [employer] Other XR foot RT min 3V*[facility] [employer] Other XR foot RT min 3V*Patient: Carly Cesar MR#: [id number] [employer] Other XR foot RT min 3V*[address] [place] [address] [employer] Other XR foot RT min 3V*: 1970 Acct:[id number] [employer] Other XR foot RT min 3V*Age/Sex: 51 / F ADM Date: 12/15/21 [place] [employer] Other XR foot RT min 3V*Loc: XDUCLY Room: Type: [facility] [employer] Other XR foot RT min 3V*Attending Dr: Bernarda WERNER [place] [employer] Other XR foot RT min 3V*Copies to: DEBBI To [place] [employer] Other XR foot RT min 3V*Ordering Provider: WAI [facility]Park[facility] [employer] Other XR foot RT min 3V*Date of Service: 12/15/21[place] [employer] Other XR foot RT min 3V* XR/XR foot RT min 3V*: Toe pain, [facility] [employer] Other XR foot RT min 3V*3 viewsRIGHT foot plain filmRiverton [employer] Other XR foot RT min 3V*COMPARISON:[facility] [employer] Other XR foot RT min 3V*HISTORY:RIGHT 4th toe injury.[employer] Other XR foot RT min 3V*No fracture, dislocation or focal soft tissue abnormality seen.[employer] Other XR foot RT min 3V* XR/XR foot RT min 3V*[employer] Other XR foot RT min 3V*IMPRESSION:No acute findingsRiverton [employer] Other XR foot RT min 3V*Impression dictated by: Brijesh Rouse M.D.12/15/2021 9:[address] [facility] [employer] Other XR foot RT min 3V*Dictation Location: [id number] [employer] Other XR foot RT min 3V*Transcribed By: PWS 12/15/21 0944 [place] [employer] Other XR foot RT min 3V*Dictated By: Brijesh Rouse DO 12/15/21 0943[place] [employer] Other XR foot RT min 3V*Signed By:[place] [employer] Other XR foot RT min 3V*12/15/21 44[place] [employer] Other XR wrist RT min 3V*on 32-24-8363XG wrist RT min 3V* [facility] [employer] Other XR wrist RT min 3V*[facility] [employer] Other XR wrist RT min 3V*[facility] [employer] Other XR wrist RT min 3V*MALCOLM Gallagher [address] [place] [address] [employer] Other XR wrist RT min 3V*[facility] [employer] Other XR wrist RT min 3V*SignedR[place] [employer] Other XR wrist RT min 3V*Patient: Carly Cesar MR#: [id number] [employer] Other XR wrist RT min 3V*[address] [place] [address] [employer] Other XR wrist RT min 3V*: 1970 Acct:[id number] [place] [employer] Other XR wrist RT min 3V*Age/Sex: 51 / F ADM Date: 08/10/21 [place] [employer] Other XR wrist RT min 3V*Loc: XDUCLY Room: Type: REG CLI [employer] Other XR wrist RT min 3V*Attending Dr: Mila Akers [facility]aleOn[facility] [employer] Other XR wrist RT min 3V*Ordering Provider: Mila Akers NP [employer] Other XR wrist RT min 3V*Date of Service: 08/10/21[facility]3[employer]Over Other XR wrist RT min 3V* XR/XR wrist RT min 3V*: Right wrist painSt. Joseph Medical Center3BaysOver Other XR wrist RT min 3V*Copies to: Mila Akers [facility] ScottsdaleOnState [employer] Other XR wrist RT min 3V*XR wrist RT min 3V* 08/10/2021 9:[address] [facility] [employer] Other XR wrist RT min 3V*SIGNS AND SYMPTOMS: Right wrist pain for one week. Pain over the radial aspect of the wrist withRiverton [employer] Other XR wrist RT min 3V*numbness and tingling into fingers. [employer] Other xr wrist RT min 3V*PROTOCOL: Frontal, lateral, and oblique radiographs of the right wristGobiquity, Inc. Other XR wrist RT min 3V*COMPARISON: [facility] [employer] Other XR wrist RT min 3V*FINDINGS:[employer] Other xr wrist RT min 3V*The bones are in anatomic alignment. The joint spaces are preserved. There is no evidence ofGobiquity, Inc. Other xr wrist RT min 3V*fracture or dislocation. No soft tissue swelling.[employer] Other xr wrist RT min 3V* XR/XR wrist RT min 3V*[employer] Other XR wrist RT min 3V*IMPRESSION:[employer] Other XR wrist RT min 3V*No acute bony injury.[employer] Other XR wrist RT min 3V*No significant degenerative change. [employer] Other XR wrist RT min 3V*No soft tissue swelling.[employer] Other XR wrist RT min 3V*Impression dictated by: Tristen La M.D.08/10/2021 9:47 AMNcenterpoint [facility] center [employer] Other XR wrist RT min 3V*Dictation Location: [facility]- [employer] Other XR wrist RT min 3V*Transcribed By: KP 08/10/21 [facility] [employer] Other XR wrist RT min 3V*Dictated By: Tristen La II, MD 08/10/[address] [place] [address] [employer] Other xr wrist RT min 3V*Signed By:[employer] Other xr wrist RT min 3V*08/10/21 [facility] HospitalGobiquity, Inc. Other Cytologyon 69-43-5709Mttrnfla(NOTE) [id number] [facility] ANATOMIC PATHOLOGY [address] [place] [id number] GYNECOLOGIC CYTOLOGY REPORT Patient Name: CARLY CESAR MR#: [id number] Specimen #[id number] Source: 1: Cervical material, (ThinPrep vial, Imaging-assisted review) Clinical History Z01.419 Routine paralegals exam without abnormal findings High risk HPV DNA testing is requested if the diagnosis is abnormal INTERPRETATION Cervical material, (ThinPrep vial, Imaging-assisted review): Specimen Adequacy: Satisfactory for evaluation. - Endocervical/transformation zone component present. Descriptive Diagnosis: Negative for intraepithelial lesion or malignancy. Contact Manager: LAURA Payne(ASCP) Electronically Signed Out azael/07/28/2019NoPremier Health Upper Valley Medical CenterComment on above:Performed By: #### PPPVP #### [employer] [address] [place] [address] Religion Instructor: Zechariah Williamson MD Vital Signs Date TimeVital SignValuePerforming HgongbhjuWkqtpycp55-02-0630 09:23-0500Body rfounp642.59 cmCristian Muñoz MD Work Phone: [phone]11-11-2025 09:23-0500 Body mass index (BMI) [Ratio]30.1 kg/n4VrsjtmxCristian Muñoz MD Work Phone: [phone] [place], [place] 147[address]11-11-2025 09:23-0500 Body zoekal68.8 kgCristian Muñoz MD Work Phone: [phone] [place], [place] 1470111-11-2025 09:23-0500 Diastolic blood xncecbux63 mm[Hg]Cristian Muñoz MD Work Phone: [phone] [place], [place] 1470111-11-2025 09:23-0500 Heart rate75 /Sarthak Muñoz MD Work Phone: [phone] [place], [place] 1470111-11-2025 09:23-0500 Respiratory rate18 /Sarthak Muñoz MD Work Phone: [phone] [place], [place] 1470111-11-2025 09:23-0500 SaO2% (BldA) [Mass fraction]97 %Cristian Muñoz MD Work Phone: [phone] [place], [place] 1470111-11-2025 09:23-0500 Systolic blood eetzcnlg973 mm[Hg]Cristian Muñoz MD Work Phone: [phone] [place], [place] 1470111-10-2025 10:52-0500 Body ttvdqy575.59 cmCristian Muñoz MD Work Phone: [phone] [place], [place] 147[address]11-10-2025 10:52-0500 Body mass index (BMI) [Ratio]29.8 kg/a1YzsyixrCristian Muñoz MD Work Phone: [facility]11-10-2025 10:52-0500 Body wxcaad23.15 kgCristian Mñuoz MD Work Phone: [facility]08-29-2025 09:50-0400 Body hiapsd960.21 cmCristian Muñoz MD Work Phone: [facility]08-29-2025 09:50-0400 Body mass index (BMI) [Ratio]28.8 kg/c6IppbclxCristian Muñoz MD Work Phone: [facility]08-29-2025 09:50-0400 Body elcuir39.5 kgCristian Muñoz MD Work Phone: [facility]08-27-2025 13:22-0400 Body zagxay235.5 cmDarron Bond MD Work Phone: [facility]08-27-2025 13:22-0400Body mass index (BMI) [Ratio]28.35 kg/i1PnvvdqiwpDarron Bond MD Work Phone: [facility]08-27-2025 13:22-040Body vfsyen06.31 kgDarron Bond MD Work Phone: [facility]08-27-2025 13:22-0400Diastolic blood mnvbdiao72 mm[Hg]Darron Bond MD Work Phone: [facility]08-27-2025 13:22-040Heart rate 102 /minDarron Bond MD Work Phone: [facility]08-27-2025 13:22-0400Systolic blood dvoomvqy674 mm[Hg]Darron Bond MD Work Phone: [facility]08-12-2025 08:26-0400Body .59 cmCristian Muñoz MD Work Phone: 1(419)[address] [place], [place] 1470108-12-2025 08:26-0400 Body mass index (BMI) [Ratio]28.9 kg/d4KvnepjiCristian Muñoz MD Work Phone: 1(392)[address] [place], [place] 1470108-12-2025 08:26-0400 Body urdoxf34 kgCristian Muñoz MD Work Phone: 1(228)[address] [place], [place] 1470108-12-2025 08:26-0400 Diastolic blood xkpmwkyu99 mm[Hg]Cristian Muñoz MD Work Phone: 1(592)[address] [place], [place] 1470108-12-2025 08:26-0400 Heart rate83 /Sarthak Muñoz MD Work Phone: 1(020)[address] [place], [place] 1470108-12-2025 08:26-0400 Respiratory rate18 /Sarthak Muñoz MD Work Phone: 1(786)[address] [place], [place] 1470108-12-2025 08:26-0400 SaO2% (BldA) [Mass fraction]98 %Cristian Muñoz MD Work Phone: 1(842)[address] [place], [place] 1470108-12-2025 08:26-0400 Systolic blood yxsdlyef820 mm[Hg]Cristian Muñoz MD Work Phone: 1(765)[address] [place], [place] 1470107-24-2025 08:11-0400 Body lsjhnu199.59 cmCristian Muñoz MD Work Phone: 1(004)[address] [place], [place] 1470107-24-2025 08:11-0400 Body mass index (BMI) [Ratio]39.1 kg/o5NbvaxqaCristian Muñoz MD Work Phone: 1(438)[address] [place], [place] 1470107-24-2025 08:11-0400 Body wpfloq15.02 kgCristian Muñoz MD Work Phone: 1(812)[address] [place], [place] 1470107-21-2025 09:03-0400 Body .5 cmClint Boogie DO Work Phone: [facility]6272 09:03-0400Body mass index (BMI) [Ratio]28.68 kg/s3CpmqnClint Boogie DO Work Phone: [facility]Rflzsaevri34-13-2588 09:03-0400Body bmyfrh00.12 kgClint Boogie DO Work Phone: [facility] SouthIuqukonpov07-67-8855 08:22-0400Body fvbsub931.59 cmCristian Muñoz MD Work Phone: 1(218)[address] [place], [place] 1470106-16-2025 08:22-0400 Body mass index (BMI) [Ratio]29.2 kg/t1LlubpqcCristian Muñoz MD Work Phone: 1(589)[address] [place], [place] 1470106-16-2025 08:22-0400 Body .55 kgCristian Muñoz MD Work Phone: 1(847)[address] [place], [place] 1470105-20-2025 08:30-0400 Body .5 cmCristian Muñoz MD Work Phone: 1(830)[address] [place], [place] 1470105-20-2025 08:30-0400 Body mass index (BMI) [Ratio]27.8 kg/w1RewsykqCristian Muñoz MD Work Phone: 1(833)[address] [place], [place] 1470105-20-2025 08:30-0400 Body nlxigz93.1 kgCristian Muñoz MD Work Phone: 1(130)[address] [place], [place] 1470105-20-2025 08:30-0400 Diastolic blood edsefutt41 mm[Hg]Cristian Muñoz MD Work Phone: 1(286)[address] [place], [place] 1470105-20-2025 08:30-0400 Heart rate89 /Sarthak Muñoz MD Work Phone: 1(799)[address] [place], [place] 1470105-20-2025 08:30-0400 Respiratory rate18 /Sarthak Muñoz MD Work Phone: 1(480)[address] [place], [place] 1470105-20-2025 08:30-0400 SaO2% (BldA) [Mass fraction]99 %Cristian Muñoz MD Work Phone: 1(260)[address] [place], [place] 1470105-20-2025 08:30-0400 Systolic blood iojopbzn892 mm[Hg]Cristian Muñoz MD Work Phone: [facility]04-21-2025 07:49-0400 Body tyepkf340.5 Janett Tim PA-C Work Phone: [facility] [employer]Umuucv53-99-9575 07:49-0400Body mass index (BMI) [Ratio]28.35 kg/m2Zahira Tim PA-C Work Phone: [facility] [employer]Qyawos58-00-9591 07:49-0400Body cvcysd13.31 kgZahira Tim PA-C Work Phone: [facility] [employer] Hrgrse72-76-5313 07:49-0400Diastolic blood nnkgrlyh57 mm[Hg]Zahira Tim PA-C Work Phone: [facility] [employer]Fpctwj35-83-2101 07:49-0400Heart rate 94 /minZahira Tim PA-C Work Phone: 1(263)887-[facility] AmericaHold[facility] HospitalDreamforgemo [employer]Qszctd33-82-9672 07:49-7987BmR5% (BldA) [Mass fraction]99 %Zahira Tim PA-C Work Phone: [facility] R[employer] Uxacfl58-73-2168 07:49-0400Systolic blood jzxowwxq139 mm[Hg]Zahira Tim PA-C Work Phone: [facility] R[employer] Adswrf63-99-3276 09:19-0400Body ajrckc695.5 Sánchez Boogie DO Work Phone: [facility]Saint [facility] HospitalVajtuwvzsr64-51-9025 09:19-0400Body mass index (BMI) [Ratio]32.01 kg/z5HmuiyClint Boogie DO Work Phone: [facility] SolutionsSaint [facility] HospitalPsmqjbenok74-81-4961 09:19-0400Body .38 kgClint Boogie DO Work Phone: [facility] SolutionsSaint John's HospitalJbrtqxnoex85-90-3025 08:49-0500Body uhsrrx368.5 cm[facility]02-25-2025 08:49-0500Body mass index (BMI) [Ratio]29.2 kg/e7WupjwcqnwAccess [facility]02-25-2025 08:49-0500Body wwqgao39.5 kg[facility]02-25-2025 08:49-0500Diastolic blood ryqrdlzk87 mm[Hg][facility]02-25-2025 08:49-0500 Heart rate93 /min[facility]02-25-2025 08:49-0500 Respiratory rate18 /[facility]02-25-2025 08:49-0500 SaO2% (BldA) [Mass fraction]98 %[facility]02-25-2025 08:49-0500Systolic blood mm[Hg][facility] 07-15-2024 13:56-0500Body zzncbe087.5 cmClint Chuyita [employer] Work Phone: 1(538)[address]02-06-2025 13:56-0500Body mass index (BMI) [Ratio]32.01 kg/a1Aqmnj Chuyita [employer] Work Phone: 1(569)[address] [place], [place] 2295202-06-2025 13:56-0500Body yovsha64.38 kgClint Chuyita [employer] Work Phone: 1(322)[address] [place], [place] 2295201-22-2025 14:49-0500Heart rate82 /min Clint Boogie [facility]01-22-2025 14:49-3826PtM9% (BldA) [Mass fraction]97 %Clint Boogie [facility]01-22-2025 14:49-0500 Respiratory rate18 /minClint Chuyita [address] [place], [place] 0509101-22-2025 14:49-0500 Diastolic blood bozplvtx02 mm[Hg]Clint Boogie [address] [place], [place] 0509101-22-2025 14:49-0500Mean blood xhjiyzpy43 mm[Hg]Clint Boogie [facility]01-22-2025 14:49-0500 Systolic blood mm[Hg]Clint Boogie [address] [place], [place] 0509101-22-2025 11:49-3025VeE0% (BldA) [Mass fraction]97 %Clint Boogie [address] [place], [place] 0509101-22-2025 11:32-0500Heart rate78 /Eribertosiri Chuyita [address] [place], [place] 8913001-22-2025 11:32-3484KkF0% (BldA) [Mass fraction]99 %Clint Boogie [address] [place], [place] 8913001-22-2025 11:32-0500 Respiratory rate18 /Eribertosiri Chuyita [address] [place], [place] 8913001-22-2025 11:30-0500 Diastolic blood kfzpytxq61 mm[Hg]Clint Boogie [address] [place], [place] 8913001-22-2025 11:30-0500Mean blood beeckhhq61 mm[Hg]Clint Boogie [address] [place], [place] 8913001-22-2025 11:30-0500 Systolic blood djzyzkwk897 mm[Hg]Clint Boogie [address] [place], [place] 8913001-22-2025 11:30-0500Body vvmxwbqrlyh67.88 [degF]Clint Booige [address] [place], [place] 8913001-22-2025 11:20-0500Body ubnexejmjgk44.88 [degF]Clint Boogie [address] [place], [place] 0509101-22-2025 11:20-0500 Diastolic blood wmsnozjv18 mm[Hg]Clint Chuyita [address] [place], [place] 8913001-22-2025 11:20-0500Heart rate78 /kayceeClint Boogie [address] [place], [place] 8913001-22-2025 11:20-0500Mean blood btbrvbol81 mm[Hg]Clint Chuyita [address] [place], [place] 8913001-22-2025 11:20-0500 Respiratory rate17 /Hang Boogie [address] [place], [place] 0509101-22-2025 11:20-0500 Systolic blood mm[Hg]Clint Boogie [address] [place], [place] 8913001-22-2025 11:10-0500Mean blood qkxkusnf82 mm[Hg]Clint Boogie [address] [place], [place] 8913001-22-2025 11:10-0500 Respiratory rate15 /Hang Boogie [address] [place], [place] 8913001-22-2025 11:05-0500Mean blood ercfwkfa46 mm[Hg]Clint Boogie [address] [place], [place] 8913001-22-2025 11:05-0500 Respiratory rate18 /Hang Boogie [address] [place], [place] 8913001-22-2025 10:56-0500Body nntepbpmpyc32.88 [degF]Clint Boogie [address] [place], [place] 0509101-22-2025 06:54-0500Mean blood zmypnvrd38 mm[Hg]Clint Boogie [address] [place], [place] 8913001-22-2025 06:53-0500 Respiratory rate16 /Hang Boogie [address] [place], [place] 0509101-22-2025 06:53-0500Body sxlqobzlrif41.7 [degF]Clint Boogie [address] [place], [place] 0509101-22-2025 06:52-0500Blood Pressure LocationStephansiri Chuyita [address] [place], [place] 0509101-09-2025 14:09-0500Body qbnqka979.5 cmStephansiri Boogie DO Work Phone: [facility]Czfazwrtln32-87-9528 14:09-0500Body mass index (BMI) [Ratio]32.01 kg/y0ZkamgClint Boogie DO Work Phone: 1(419)[address] [place], [place] 2295201-09-2025 14:09-0500Body xuzmze75.38 kgClint Boogie DO Work Phone: 1(082)[address] [place], [place] 2295201-09-2025 12:36-0500Diastolic blood tadosnom75 mm[Hg]Clint Boogie [address] [place], [place] 8913001-09-2025 12:36-0500Heart rate86 /Hang Boogie [address] [place], [place] 8913001-09-2025 12:36-0500Mean blood gehcufeg387 mm[Hg]Clint Boogie [address] [place], [place] 8913001-09-2025 12:36-0500 Systolic blood oofzycbo001 mm[Hg]Clint Boogie [address] [place], [place] 8913001-09-2025 12:35-0500Heart rate82 /Hang Boogie [address] [place], [place] 8913001-09-2025 12:35-4198UuN4% (BldA) [Mass fraction]96 %Clint Boogie [address] [place], [place] 8913001-09-2025 12:34-0500 Respiratory rate18 /Hang Boogie [address] [place], [place] 8913001-09-2025 12:34-0500 Diastolic blood xkqulwea46 mm[Hg]Clint Chuyita [address] [place], [place] 8913001-09-2025 12:34-0500Mean blood olfijsgr83 mm[Hg]Clint Boogie [address] [place], [place] 8913001-09-2025 12:34-0500 Systolic blood venajihy030 mm[Hg]Clint Chuyita [address] [place], [place] 8913011-07-2024 08:49-0500Body .5 cmClint Chuyita DO Work Phone: 1(152)[address] [place], [place] 2295211-07-2024 08:49-0500Body mass index (BMI) [Ratio]32.01 kg/f7OwjewClint Boogie DO Work Phone: [facility]Qbdqptinwb53-33-2945 08:49-0500Body rhxbax44.38 kgClint Boogie DO Work Phone: [facility]Pblosndbvb09-14-4446 10:17-0400Body rosbjj287.5 cm Cristian Hoy Work Phone: 1(694)[address]10-04-2024 10:17-0400 Body mass index (BMI) [Ratio]33.3 kg/m2MD Cristian Hoy Work Phone: 1(556)[address] [place], [place] 1470110-04-2024 10:17-0400 Body .65 kgMD Cristian Hoy Work Phone: 1(697)[address] [place], [place] 1470110-04-2024 10:17-0400 Diastolic blood lkpcqehp29 mm[Hg]MD Cristian Muñoz Work Phone: 1(648)[address] [place], [place] 1470110-04-2024 10:17-0400 Heart rate79 /minMD Cristian Hoy Work Phone: 1(950)[address] [place], [place] 1470110-04-2024 10:17-0400 Respiratory rate18 /minMD Cristian Hoy Work Phone: 1(037)[address] [place], [place] 1470110-04-2024 10:17-0400 SaO2% (BldA) [Mass fraction]99 %MD Cristian Muñoz Work Phone: 1(583)[address] [place], [place] 1470110-04-2024 10:17-0400 Systolic blood mm[Hg]MD Cristian Muñoz Work Phone: 1(630)[address] [place], [place] 1470108-12-2024 10:44-0400 Body nbrfio368.75 cmPHYSICIAN [facility] 01-19-2024 10:44-0400Body mass index (BMI) [Ratio]33.6 kg/f2BCGJIZVQW [facility]08-12-2024 10:44-0400Body agfpii58.85 kg PHYSICIAN [facility]08-12-2024 10:44-0400 Diastolic blood njyjqjrr99 mm[Hg]PHYSICIAN NO [facility]08-12-2024 10:44-0400Heart rate96 /minPHYSICIAN NO [facility]08-12-2024 10:44-0400Respiratory rate18 /minPHYSICIAN NO [facility]08-12-2024 10:44-7790HkV6% (BldA) [Mass fraction]97 %PHYSICIAN NO [facility]08-12-2024 10:44-0400Systolic blood mm[Hg]PHYSICIAN NO [facility]08-06-2024 09:58-0400Body mass index (BMI) [Ratio]34.39 kg/m2 Darron Bond MD Work Phone: [facility]08-06-2024 09:58-0400Body bktkif90.28 kgDarron Bond MD Work Phone: [facility]08-06-2024 09:58-0400Diastolic blood mm[Hg]Darron Bond MD Work Phone: [facility]08-06-2024 09:58-0400Heart rate 86 /minDarron Bond MD Work Phone: [facility]08-06-2024 09:58-0400Systolic blood ukewgmcl116 mm[Hg]Darron Bond MD Work Phone: [facility]06-28-2024 10:20-0400Diastolic blood hftexctc85 mm[Hg]MD Cristian Muñoz Work Phone: 1(991)498-[address] [place], [place] 7050706-28-2024 10:20-0400 Heart rate75 /minMD Cristian Muñoz Work Phone: 3(941)566-[address] [place], [place] 7050706-28-2024 10:20-0400 Respiratory rate14 /minMD Cristian Muñoz Work Phone: 5(546)590-[address] [place], [place] 7050706-28-2024 10:20-0400 SaO2% (BldA) [Mass fraction]91 %MD Cristian Muñoz Work Phone: 1(905)[address]06-28-2024 10:20-0400 Systolic blood eauyagjr60 mm[Hg]MD Cristian Muñoz Work Phone: 1419)[address] [place], [place] 1470106-28-2024 09:30-0400 Body lkqbvzjopfi55 [degF]MD Cristian Muñoz Work Phone: 1(419)[address] [place], [place] 1470106-28-2024 09:07-0400 Inhaled oxygen flow rate8 L/min Cristian Hoy Work Phone: 1419)[address] [place], [place] 1470106-28-2024 07:10-0400 Body nhwdii035.75 cmMD Cristian Hoy Work Phone: 1(632)[address] [place], [place] 1470106-28-2024 07:10-0400 Body mass index (BMI) [Ratio]35.6 kg/m2MD Cristian Hoy Work Phone: 1419)[address] [place], [place] 1470106-28-2024 07:10-0400 Body nppvyv82 kgMD Cristian Hoy Work Phone: 1(342)[address] [place], [place] 1470106-18-2024 10:59-0400 Body ehnnxl249.21 cmMD Cristian Hoy Work Phone: 1(057)[address] [place], [place] 1470106-18-2024 10:59-0400 Body mass index (BMI) [Ratio]37.5 kg/m2MD Cristian Hoy Work Phone: 1(674)[address] [place], [place] 1470106-18-2024 10:59-0400 Body .71 kgMD Cristian Hoy Work Phone: 1(749)[address] [place], [place] 1470106-17-2024 10:18-0400 Body jwruxm036.21 cmMD Cristian Hoy Work Phone: 1(453)[address] [place], [place] 1470106-17-2024 10:18-0400 Body mass index (BMI) [Ratio]37.5 kg/m2MD Cristian Hoy Work Phone: 1(338)[address] [place], [place] 1470106-17-2024 10:18-0400 Body .71 kgMD Cristian Hoy Work Phone: [phone])483-[address] [place], [place] 7050706-17-2024 10:18-0400 Diastolic blood tmqyaohy10 mm[Hg]MD Cristian Muñzo Work Phone: 1(419)[address]06-17-2024 10:18-0400 Heart rate85 /minMD Cristian Hoy Work Phone: 1(419)[address]06-17-2024 10:18-0400 Respiratory rate18 /minMD Cristian Hoy Work Phone: 1(419)[address] [place], [place] 1470106-17-2024 10:18-0400 SaO2% (BldA) [Mass fraction]96 %MD Cristian Muñoz Work Phone: 1(419)[address] [place], [place] 1470106-17-2024 10:18-0400 Systolic blood toikbfhf062 mm[Hg]MD Cristian Muñoz Work Phone: 1(419)[address] [place], [place] 1470105-11-2024 14:03-0400 Body dncxoe350.21 cmMD Cristian Hoy Work Phone: 1419)[address] [place], [place] 1470105-11-2024 14:03-0400 Body mass index (BMI) [Ratio]37.9 kg/m2MD Cristian Hoy Work Phone: 1(419)[address] [place], [place] 1470105-11-2024 14:03-0400 Body vogefayosko97 [degF]MD Cristian Muñoz Work Phone: 1(419)[address] [place], [place] 1470105-11-2024 14:03-0400 Body povgih04.58 kgMD Cristian Hotiffany Work Phone: 1419)[address] [place], [place] 1470105-11-2024 14:03-0400 Diastolic blood iypdkrdd75 mm[Hg]MD Cristian Muñoz Work Phone: 1(419)[address] [place], [place] 1470105-11-2024 14:03-0400 Heart rate94 /minMD Cristian Hoy Work Phone: 1(310)[address] [place], [place] 1470105-11-2024 14:03-0400 Respiratory rate18 /minMD Cristian Boweny Work Phone: 1(208)[address] [place], [place] 1470105-11-2024 14:03-0400 SaO2% (BldA) [Mass fraction]95 %MD Cristian Muñoz Work Phone: 1(024)[address] [place], [place] 1470105-11-2024 14:03-0400 Systolic blood mm[Hg]MD Cristian Muñoz Work Phone: 1(538)[address] [place], [place] 1470104-22-2024 08:25-0400 Body rbdieq126.21 cmMD Cristian Hotiffany Work Phone: 1(393)[address] [place], [place] 1470104-22-2024 08:25-0400 Body mass index (BMI) [Ratio]37.3 kg/m2MD Cristian Hotiffany Work Phone: 1(691)[address] [place], [place] 1470104-22-2024 08:25-0400 Body xkyldz31.25 kgMD Cristian Bowentiffany Work Phone: 1(650)[address] [place], [place] 1470104-22-2024 08:25-0400 Diastolic blood qogjrnrw43 mm[Hg]MD Cristian Muñoz Work Phone: 1(062)[address] [place], [place] 1470104-22-2024 08:25-0400 Heart rate81 /minMD Cristian Hoy Work Phone: 1(077)[address] [place], [place] 1470104-22-2024 08:25-0400 Respiratory rate18 /minMD Cristian Boweny Work Phone: 1(146)[address] [place], [place] 1470104-22-2024 08:25-0400 SaO2% (BldA) [Mass fraction]96 %MD Cristian Muñoz Work Phone: 1(139)[address] [place], [place] 1470104-22-2024 08:25-0400 Systolic blood igsmjamy366 mm[Hg]MD Cristian Muñoz Work Phone: 1(856)[address] [place], [place] 1470104-19-2024 08:04-0400 Body zitrna426.5 cmMolacey Simmons MD Work Phone: [facility]04-19-2024 08:04-0400Body mass index (BMI) [Ratio]37.28 kg/j2JxixcqmtDeisy Simmons MD Work Phone: [facility]04-19-2024 08:04-0400Body huxyhy15.44 kgDeisy Simmons MD Work Phone: [facility]04-19-2024 08:04-0400Diastolic blood mm[Hg]Deisy Simmons MD Work Phone: [facility]04-19-2024 08:04-0400Heart rate 90 /minDeisy Simmons MD Work Phone: [facility]04-19-2024 08:04-7251OpF5% (BldA) [Mass fraction]98 %Deisy Simmons MD Work Phone: [facility]04-19-2024 08:04-0400Systolic blood dbjdbjaw044 mm[Hg]Deisy Simmons MD Work Phone: [facility]02-22-2024 08:17-0500Body jedcdi216.21 cmMD Cristian Hoy Work Phone: 1(966)705-[address] [place], [place] 7050702-22-2024 08:17-0500 Body mass index (BMI) [Ratio]38.7 kg/m2 Cristian Hoy Work Phone: 1(649)780-[address] [place], [place] 7050702-22-2024 08:17-0500 Body .43 kgMD Cristian Muñoz Work Phone: 1(684)613-[address] [place], [place] 7050702-22-2024 08:17-0500 Diastolic blood cakrljho68 mm[Hg]MD Cristian Muñoz Work Phone: 1(328)435-[address] [place], [place] 7050702-22-2024 08:17-0500 Heart rate81 /min Cristian Hotiffany Work Phone: [facility]02-22-2024 08:17-0500 Respiratory rate18 /min Cristian Hoy Work Phone: [facility]02-22-2024 08:17-0500 SaO2% (BldA) [Mass fraction]97 %MD Cristian Muñoz Work Phone: [facility]02-22-2024 08:17-0500 Systolic blood nfwqbyoi575 mm[Hg]MD Cristian Muñoz Work Phone: [facility]12-13-2023 08:30-0500 Body mvexlg169.21 Peterosito Baeza Other [employer] Other 12-13-2023 08:30-0500Body mass index (BMI) [Ratio] 38.66 kg/x4SalgtyMitchel Baeza Other [employer] Other 12-13-2023 08:30-0500Body .35 kgMitchel Baeza Other [employer] Other 12-13-2023 08:30-0500Diastolic blood whdpyjvv50 mm[Hg] Mitchel Baeza Other [employer] Other 12-13-2023 08:30-0500Respiratory rate16 /minMitchel Baeza Other [employer] Other 12-13-2023 08:30-8533DeK4% (BldA) [Mass fraction]98 % Mitchel Baeza Other [employer] Other 12-13-2023 08:30-0500Systolic blood dfmujorp514 mm[Hg] Mitchel Baeza Other [employer] Other 10-11-2023 08:30-0400Body hrkvit702.21 Peterosito Baeza Other [employer] Other 10-11-2023 08:30-0400Body mass index (BMI) [Ratio] 38.59 kg/p7DiwxehMitchel Baeza Other [employer] Other 10-11-2023 08:30-0400Body xyixuu51.17 kgMitchel Baeza Other [employer] Other 10-11-2023 08:30-0400Diastolic blood hjaymsfn84 mm[Hg] Mitchel Baeza Other [employer] Other 10-11-2023 08:30-0400Respiratory rate16 /minMitchel Baeza Other [employer] Other 10-11-2023 08:30-6260KjP6% (BldA) [Mass fraction]97 % Mitchel Baeza Other [employer] Other 10-11-2023 08:30-0400Systolic blood snwupnlh503 mm[Hg] Mitchel Baeza Other [employer] Other 08-30-2023 11:15-0400Body hasqcv436.21 cmDawn Fitt Other [employer] Other 08-28-2023 08:30-0400Body onoocg231.21 cmAteresenicki Baeza Other [employer] Other 08-28-2023 08:30-0400Body mass index (BMI) [Ratio]39.5 kg/a8RmdqwyMitchel Baeza Other [employer] Other 08-28-2023 08:30-0400Body uxictb29.39 kgMitchel Baeza Other [employer] Other 08-28-2023 08:30-0400Diastolic blood jvekuqnu18 mm[Hg] Mitchel Baeza Other [employer] Other 08-28-2023 08:30-0400Respiratory rate18 /minMitchel Baeza Other [employer] Other 08-28-2023 08:30-4703IsW7% (BldA) [Mass fraction]96 % Mitchel Baeza Other [employer] Other 08-28-2023 08:30-0400Systolic blood lgiyrtru289 mm[Hg] Mitchel Baeza Other [employer] Other 07-31-2023 10:15-0400Body .21 cmDawn Jorge L Other [employer] Other 07-27-2023 08:30-0400Body ocmqns832.21 cmAosito Aryan Other [employer] Other 07-27-2023 08:30-0400Body mass index (BMI) [Ratio] 39.35 kg/n0Ffxkngshelly Baeza Other [employer] Other 07-27-2023 08:30-0400Body .03 kgMitchel Baeza Other [employer] Other 07-27-2023 08:30-0400Diastolic blood fjedzmgt24 mm[Hg] Mitchel Baeza Other [employer] Other 07-27-2023 08:30-0400Respiratory rate16 /minMitchel Baeza Other [employer] Other 07-27-2023 08:30-2209LgI1% (BldA) [Mass fraction]97 % Mitchel Baeza Other [employer] Other 07-27-2023 08:30-0400Systolic blood blsshfeu857 mm[Hg] Mitchel Baeza Other [employer] Other 07-09-2022 10:00-0400Body .48 cmPamela Elizabet Other [employer] Other 07-09-2022 10:00-0400Body mass index (BMI) [Ratio] 38.95 kg/z8Ltwseotato Mcneal Other [employer] Other 07-09-2022 10:00-0400Body klbikwkbbcm45.1 [degF]Bernarda Mcneal Other [employer] Other 07-09-2022 10:00-0400Body sntuoh47.62 kgPatato Mcneal Other [employer] Other 07-09-2022 10:00-0400Diastolic blood mm[Hg] Bernarda Elizabet Other [employer] Other 07-09-2022 10:00-0400Respiratory rate18 /minBernarda Mcneal Other [employer] Other 07-09-2022 10:00-5482BjN5% (BldA) [Mass fraction]98 % [facility] [employer] Other 07-09-2022 10:00-0400Systolic blood sclodjpm597 mm[Hg] Bernarda Buimond Other [place] [employer] Other 03-04-2022 10:00-0500Body gjadpf090.48 cmPeggy Akers Other [place] [employer] Other 03-04-2022 10:00-0500Body mass index (BMI) [Ratio] 37.31 kg/p0Gwejr Akers Other [place] [employer] Other 03-04-2022 10:00-0500Body xnmsoeghwno12.7 [degF]Mila Akers Other [place] [employer] Other 03-04-2022 10:00-0500Body pldvas57.53 kgPeggy Akers Other [place] [employer] Other 03-04-2022 10:00-0500Diastolic blood mm[Hg] [facility] [employer] Other 03-04-2022 10:00-0500Respiratory rate18 /minPeggy Akers Other [place] [employer] Other 03-04-2022 10:00-9543SqR6% (BldA) [Mass fraction]99 % Mila Akers Other [place] [employer] Other 03-04-2022 10:00-0500Systolic blood vffapnzd017 mm[Hg] Mila Akers Other [place] [employer] Other Encounters Encounter DateEncounter TypeCare ProviderFacilityStart: 04-20-2025 End: 82-20-8179Itsytz flowsheetMarshall Brink [facility] Start: 04-20-2025 End: 52-59-4083Odipft flowsheetMarshall Brink [facility] Start: 04-20-2025 End: 93-34-4016hlvsuptktyJABMEZFX BRINKNOMS HealthcareComment on above: Iliotibial band syndrome of right side (Primary Dx)Start: 04-19-2025 End: 76-94-7252stgqnpbmysHqncsvy M Hoy MD Work Phone: [phone]-EYFZLssnp: 04-19-2025 End: 72-56-5866Tmsqvdz encounter procedureSandra Jules MD-[facility] Work Phone: Start: 04-18-2025 End: 54-13-3683Dnjemq flowsheetMarshall Brink PTANOMS [facility] Physical Therapy Start: 04-18-2025 End: 58-48-9264Lmfkfg flowsheetMarshall Brink PTANOMS [facility] Start: 04-18-2025 End: 24-08-0905Dxljbae encounter Angie Claudio-[facility] Work Phone: Start: 04-18-2025 End: 92-63-8271yflavdqbhgSbdezily Brink PTANOMS [facility] Physical TherapyComment on above:Iliotibial band syndrome of right side (Primary Dx)Start: 04-13-2025 End: 17-92-5854Lghvzq flowsheetMarshall Brink PTANOMS [facility] Start: 04-13-2025 End: 89-07-8235Fwwfxy flowsheetMarshall Brink PTANOMS [facility] Start: 04-13-2025 End: 54-94-1443kqzihgnokvTrtaykca Brink PTANOMS [facility] Physical TherapyComment on above:Iliotibial band syndrome of right side (Primary Dx)Start: 04-11-2025 End: 18-64-1194Vvuwsy flowsheetMelissa Kelbley PTAN[facility] Start: 04-11-2025 End: 40-19-8299Ypunzf flowsheetMelissa Kelbley [facility] Start: 04-11-2025 End: 81-29-4541oajpucwqtoCehnjcg Kelbley PTANOMS [facility] Physical TherapyComment on above:Iliotibial band syndrome of right side (Primary Dx)Start: 04-08-2025 End: 79-78-2817agxzuqrsdjYgolcqfe Brink PTANOMS [facility] Physical TherapyComment on above:Iliotibial band syndrome of right side (Primary Dx)Start: 04-08-2025 End: 84-52-9074Doyata flowsheetMarshall Brink PTANOMS [facility] Start: 04-08-2025 End: 41-78-2420Wojppn flowsheetMarshall Brink PTANOM[facility] Start: 04-06-2025 End: 93-56-1457FtaiaeBwibtqsThelma WILSON Work Phone: [facility] CardiologyComment on above:Med RefillStart: 04-04-2025 End: 19-68-2498Rekbxt flowsheetMelissa Kelbley PTANOMS [facility] Start: 04-04-2025 End: 36-91-4311Aivggq flowsheetMelissa Kelbley [facility] Start: 04-04-2025 End: 89-18-0904vbbxykqolhTiajzsu Kelbley PTANOMS [facility] TherapyComment on above:Iliotibial band syndrome of right side (Primary Dx)Start: 03-30-2025 End: 67-98-8423Apnbxc flowsheetMelissa Kelbley [facility] Start: 03-30-2025 End: 71-01-9404Pfajhv flowsheetMelissa Kelbley [facility] Start: 03-30-2025 End: 27-26-4103kzsuaulainFrlscxc Kelbley PTANOMS [facility] TherapyComment on above:Iliotibial band syndrome of right side (Primary Dx)Start: 03-23-2025 End: 09-44-0369Jwyujc flowsheetSammantha Cunha PTNOMS [facility] Start: 03-23-2025 End: 04-43-8617Hruvar flowsheetSammantha Cunha PTNOMS [facility] Start: 03-23-2025 End: 45-40-5238aqzavytuieWmgegadez Cunha PTNOMS [facility] Comment on above:Iliotibial band syndrome of right side (Primary Dx)Start: 02-23-2025 End: 49-52-5933krqnizvouuNAVZUVV M [facility] Springfieldtart: 67-17-8669usnxbpaegqYCUESBT M HOYProMedica Hospital Ambulatory PPGStart: 02-04-2025 End: 74-02-9961wxkplzdgxxYemxawn M Hoy MD Work Phone: [facility] Work Phone: Start: 02-04-2025 End: 60-43-9779Hrqwcye encounter procedureYousuf McleanEinstein [facility] Work Phone: Start: 02-02-2025 End: 01-36-2627lumtaocspoMYVZKTOJRWMCHealth Ambulatory PPGStart: 02-02-2025 End: 33-75-7982Suxkniv encounter procedureDarron Bond MD Work Phone: [facility] SystemStart: 02-02-2025 End: 61-28-9194Lvqggahz preventive med est patient 40-64yrsMelissa Bond MD Work Phone: [facility] Obstetrics/GynecologyComment on above:Well woman exam with routine gynecological exam (Primary Dx); Screening mammogram, encounter forStart: 01-19-2025 End: 41-94-4034Gujnlcopl encounterSara [facility] Start: 01-18-2025 End: 09-75-5680fcxvmyvcllZqfsfxw M Hoy MD Work Phone: [facility] Work Phone: Start: 01-18-2025 End: 71-20-6240Tcdhwgv encounter procedureSandra Jules MD-[facility] Work Phone: Start: 01-06-2025 End: 20-66-7731AiehanOltapwAlyssa Torres PA-C Work Phone: [facility] CardiologyComment on above:Med RefillStart: 12-30-2024 End: 70-62-5895vnlclbskmlPyufzru M Hoy MD Work Phone: [facility] Work Phone: Start: 12-30-2024 End: 78-54-3517Nrxeeyw encounter procedureAndalice ClaudioRUNNELLS SPECIALIZED [facility] Work Phone: Start: 12-27-2024 End: 85-19-5954Bmkvysk encounter procedureClint Boogie DO Work Phone: [facility] NB ORTHOComment on above:S/P total knee arthroplasty, right (Primary Dx)Start: 12-27-2024 End: 26-27-3549zxiguunurfQUZPL A BROWNNot AvailableStart: 12-27-2024 End: 35-34-4809ckuaopbzudRNUBG A BROWNNot AvailableStart: 77-61-1291Lud-patient / Non-visitCristian Landaverde MD-[facility] Work Phone: Start: 11-25-2024 End: 00-69-5074Vgenqth encounter procedureSandra Jules MD-[facility] Work Phone: Start: 11-25-2024 End: 02-54-3127bgtsxurjglRjpqah L CundiffFacility:[facility] Hospitaltart: 11-22-2024 End: 88-09-1351Zzjzcic encounter procedureYousuf ClaudioRUNNELLS SPECIALIZED [facility]OSPITAL Work Phone: Start: 10-26-2024 End: 89-43-5774Uwnwnex encounter procedureSandra Jules MDRUNNELLS SPECIALIZED HOSPITAL Work Phone: Start: 10-16-2024 End: 02-80-4453SxveyhCckqwgLaura Rivera MD Work Phone: [facility] CardiologyComment on above:Med RefillStart: 09-27-2024 End: 82-77-1786Csteyq outpatient visit 15 Leona Tim PA-C Work Phone: [facility] CardiologyComment on above:Family history of heart disease (Primary Dx); Primary hypertension; Dyslipidemia; Overweight (BMI 25.0-29.9)Start: 09-27-2024 End: 64-02-0207gubfdzxjvuIRDWXVH [facility] Hospitaltart: 09-23-2024 End: 41-94-0016Ryxdrbt encounter procedureClint Boogie DO Work Phone: noMS NB ORTHOComment on above:S/P total knee arthroplasty, right (Primary Dx)Start: 09-23-2024 End: 40-64-9514daasblvkpkFFRPT A BROWNNot AvailableStart: 09-23-2024 End: 94-30-3151oabfhczkxmOPSWS A BROWNNot AvailableStart: 08-12-2024 End: 09-96-6662ukplagebkxGBFKX A BROWNNot AvailableStart: 08-12-2024 End: 07-08-1783bufwgbwujrYBTMD A BROWNNot AvailableStart: 08-03-2024 End: 75-82-5321msdxcbhgcsNontlilqxSelect [facility] Work Phone: Start: 08-03-2024 End: 37-94-3415Updabao encounter procedureEcu Health [facility] Physician GroupRUNNELLS SPECIALIZED [facility]OSPITAL Work Phone: Start: 07-16-2024 End: 58-48-7859Fgyfpkrf SupportSimi Aragon PT Work Phone: n[facility] SWS PTHComment on above:Primary osteoarthritis of right knee (Primary Dx); Difficulty walking; Acute postoperative pain of right knee; Status post right knee replacementStart: 07-15-2024 End: 79-53-0088Ctybxhq encounter procedureClint Boogie DO Work Phone: noMS NB ORTHOComment on above:S/P total knee arthroplasty, right (Primary Dx)Start: 07-15-2024 End: 75-71-4276wqwavzbonlDUCOW A BROWNNot AvailableStart: 07-15-2024 End: 98-38-7295sgkddtycxjVYYUW A BROWNNot AvailableStart: 07-14-2024 End: 04-09-2676Lxffcpde SupportSimi Aragon PT Work Phone: [facility] SWS PTHComment on above:Primary osteoarthritis of right knee (Primary Dx); Difficulty walking; Acute postoperative pain of right knee; Status post right knee replacementStart: 07-13-2024 End: 76-67-9338xljgssxxcpWXRDUEbenezer Escobar AvailableStart: 07-13-2024 End: 64-26-4795Zkontomoi encounterMelannelise Lazo PTAMERCY CI PTComment on above: DISREGARDStart: 07-12-2024 End: 68-87-6855Suxbjnzu SupportSimi Aragon PT Work Phone: [facility] SWS PTHComment on above:Primary osteoarthritis of right knee (Primary Dx); Difficulty walking; Acute postoperative pain of right knee; Status post right knee replacementStart: 07-09-2024 End: 49-21-4799Rdsamgqa SupportSimi Aragon PT Work Phone: [facility] SWS PTHComment on above:Primary osteoarthritis of right knee (Primary Dx); Difficulty walking; Acute postoperative pain of right knee; Status post right knee replacementStart: 07-08-2024 End: 47-81-1324msndpofcyqMEKMRJaimee Escobar AvailableStart: 07-07-2024 End: 51-17-5023Xosjrbjg SupportSimi Aragon PT Work Phone: [facility] SWS PTHComment on above:Primary osteoarthritis of right knee (Primary Dx); Difficulty walking; Acute postoperative pain of right knee; Status post right knee replacementStart: 07-05-2024 End: 26-24-0509Fdncrnkw SupportSimi Aragon PT Work Phone: [facility] SWS PTHComment on above:Primary osteoarthritis of right knee (Primary Dx); Difficulty walking; Acute postoperative pain of right knee; Status post right knee replacementStart: 07-05-2024 End: 82-46-3460jcpunqkphbJVSCG M DONALDSONNot AvailableStart: 07-01-2024 End: 63-42-8650Xkessasw SupportAnthonyalena Aragon PT Work Phone: [facility] SWS PTHComment on above:Primary osteoarthritis of right knee (Primary Dx); Difficulty walking; Acute postoperative pain of right knee; Status post right knee replacementStart: 06-30-2024 End: 75-44-3126Rvmjflsoq Result EncounterClint Boogie DO Work Phone: [facility] External Department UnsolicitedStart: 06-30-2024 End: 83-90-7857Gadyiutid Result EncounterClint Boogie DO Work Phone: noms External Department UnsolicitedStart: 06-30-2024 End: 59-59-6599Fcdppzdyr to same day surgery locust gapClint Boogie [facility] Start: 06-30-2024 End: 66-67-7238hmdsfrybdbLO Clint BoogieFacility:FTMCStart: 06-24-2024 End: 22-15-0341Luzmfj flowsheetSammantha Cunha PTNOMS CI PTStart: 06-24-2024 End: 69-00-9532Kdrdzd flowsheetSammantha Cunha PTNOMS CI PTStart: 06-24-2024 End: 55-74-0638wxcvhkmjiyKcpjudvaz Cunha PTNOMS CI PTComment on above: Primary osteoarthritis of right knee (Primary Dx)Start: 06-17-2024 End: 65-57-1163sbamjutnohHCKFJ A BROWNNot AvailableStart: 06-17-2024 End: 23-44-2914Uyyhjsrhe Result Oralia Boogie DO Work Phone: [facility] External Department UnsolicitedStart: 06-17-2024 End: 37-41-1889Mhrvgzajb Result EncounterClint Boogie DO Work Phone: [facility] External Department UnsolicitedStart: 06-17-2024 End: 02-83-9160Szrcacx encounter statusClint Boogie DO Work Phone: [facility] Work Phone: Start: 06-17-2024 End: 20-39-3485wtqnifwyalDxqae A BrownFacility:FTMCStart: 06-17-2024 End: 05-63-8027Zmnogzf encounter procedureClint Boogie DO Work Phone: [facility] NB ORTHOComment on above:Pre-op testingStart: 05-12-2024 End: 06-53-4847Dynsvgmmh encounterMargarita Delgado Physicians Cardiology Comment on above:wt loss, dizzy, bp med holdStart: 04-29-2024 End: 64-44-3455xpaudumwofVSJAJEMI SHUAIBProMedica Centinela [facility], Marina Campustart: 04-15-2024 End: 23-91-2862Wwqlzxx encounter procedureClint Boogie DO Work Phone: [facility] NB ORTHOComment on above:Right knee pain, unspecified chronicity (Primary Dx); Primary osteoarthritis of right kneeStart: 03-12-2024 End: 54-66-8667hcfxwyqjpgCE Cristian M Hoy Work Phone: [facility] Work Phone: Start: 03-12-2024 End: 52-86-7384Twfsnwz encounter procedureMD Cristian Hoy Work Phone: [facility] Work Phone: Start: 03-08-2024 End: 36-43-8836peisqmdgnpJK Cristian M Hoy Work Phone: [facility] Work Phone: Start: 03-08-2024 End: 70-56-0784Efgpbuo encounter procedureMD Cristian Hoy Work Phone: [facility] Work Phone: Start: 02-19-2024 End: 93-41-8272Vzzpffy encounter procedurePHYSICIAN NO FAMILYFirelands Physician [facility] Work Phone: Start: 02-19-2024 End: 97-89-8521cmarognlkkPIYUKNTED NO [facility] Work Phone: Comment on above:Med RefillStart: 02-05-2024 End: 58-41-2194setwdbyruwYHZSUTJYC NO [facility] Work Phone: Start: 02-05-2024 End: 73-12-0872Jtkwtub encounter procedurePHYSICIAN NO [facility] Work Phone: Start: 02-05-2024 End: 96-73-1402Msvmhvu encounter procedurePHYSICIAN NO [facility] [place] OrthoStart: 02-05-2024 End: 81-41-1419rkxoiaxykbIFXDGICVW NO [facility] Work Phone: Start: 01-19-2024 End: 86-17-8661hjwjgwmrahJECLSRCZN NO [facility] Work Phone: Start: 01-19-2024 End: 40-40-1201Fatfdqq encounter procedurePHYSICIAN NO [facility] Phys[facility] GroupRUNNELLS SPECIAL[facility] Work Phone: Start: 01-15-2024 End: 46-56-5918zmoqwlocvgUWWOEXWLV NO [facility] Work Phone: Start: 01-15-2024 End: 81-14-2062Ymghasr encounter procedurePHYSICIAN NO [facility] Work Phone: Start: 2024 End: 82-51-6341Bdhztjy encounter procedureDarron Bond MD Work Phone: [facility] Hospitalca [facility] SystemStart: 2024 End: 05-35-1200Lxpymoar preventive med est patient 40-64yrJames Bond MD Work Phone: [facility] Obstetrics/GynecologyComment on above:Well woman exam with routine gynecological exam (Primary Dx); Screening mammogram, encounter forStart: 12-30-2023 End: 78-91-7505Mchrwxinh encounterGemma MCKEETulane–Lakeside Hospitalayala [facility] Cardiology Comment on above:ResultsStart: 79-68-7087Htf-patient / Non-visitPHYSICIAN NO [facility] Work Phone: Start: 12-18-2023 End: 66-50-8235rpslhwsdzdWAIOYNKAG NO [facility] Work Phone: Start: 12-18-2023 End: 27-62-7269Ytltrvf encounter procedurePHYSICIAN NO [facility] [place] Work Phone: Start: 12-15-2023 End: 35-75-7049DmynttOysbqxhc Schlosser 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 Work Phone: [facility] CardiologyComment on above:Med RefillStart: 16-24-6970Kvn-patient / Non-visitMD Cristian Muñoz Work Phone: [facility] [place] Work Phone: Start: 12-05-2023 End: 75-66-1362Getjnlmcl to same day surgery centerMD Cristian Boweny Work Phone: [facility] CampusStart: 12-05-2023 End: 98-30-5543gibhfarbquHB Cristian M Hoy Work Phone: [facility] Work Phone: Start: 12-01-2023 End: 00-37-1342jyvumzcjyiGG Cristian M Hoy Work Phone: [facility] Work Phone: Start: 12-01-2023 End: 60-50-2442Jorlpgx encounter procedureMD Cristian Hoy Work Phone: [facility] Jje-Wgx-Qrelobxv Testing Work Phone: Start: 11-25-2023 End: 30-47-1118hequbnglqmVG Cristian M Hoy Work Phone: [facility] Work Phone: Start: 11-25-2023 End: 59-39-4305Pwxxucd encounter procedureMD Cristian Hoy Work Phone: [facility] Work Phone: Start: 11-25-2023 End: 84-29-4932mdzgrmowjkWQ Cristian M Hoy Work Phone: [facility] Work Phone: Start: 11-25-2023 End: 67-44-5547Coxjoms encounter procedureMD Cristian Hoy Work Phone: [facility] [place] [facility] Start: 11-24-2023 End: 43-83-8406hpiglsjugeXE Cristian M Hoy Work Phone: [facility] Work Phone: Start: 11-24-2023 End: 91-99-5071Bnzphgp encounter procedureMD Cristian Hoy Work Phone: [facility] Work Phone: Start: 49-84-2061Hmp-patient / Non-visitPHYSICIAN NO [facility] Work Phone: Start: 10-18-2023 End: 05-09-7427eymcoriqeoCK Cristian M Hoy Work Phone: [facility] Work Phone: Start: 10-18-2023 End: 82-52-5897Jqtxvmks ReferredMD Cristian Hoy Work Phone: [facility]-Lab [place] Work Phone: Start: 10-18-2023 End: 78-48-0934Tlkuoes encounter procedureMD Cristian Muñoz Work Phone: [facility] Work Phone: Start: 09-29-2023 End: 92-26-2026Bpubfoe encounter procedureMD Cristian Muñoz Work Phone: [facility] Work Phone: Start: 09-26-2023 End: 43-33-7623Xjwcat outpatient visit 25 minutesRobaugusto Badillo MD Work Phone: [facility] CardiologyComment on above: Primary hypertension (Primary Dx); DyslipidemiaStart: 09-25-2023 End: 28-18-3418Tfmvqzzbo encounterBritany Bell CMAProMedica Physicians CardiologyStart: 09-23-2023 End: 65-47-4950Bzymhsmlc encounterKatbeatriz Fuentes PharmDProMedica Physicians CardiologyStart: 09-15-2023 End: 89-69-6470VceebhCqpxh E Reinhart 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 Work Phone: [facility] CardiologyComment on above:Med RefillStart: 09-08-2023 End: 29-33-2648llwamtmtrgFT Cristian Muñoz Work Phone: [facility] Work Phone: Start: 09-08-2023 End: 20-24-8704Gpzoxwe encounter procedureMD Cristian Muñoz Work Phone: [facility]-Self Pay Exercise ProgramStart: 26-04-3930Mkcspthqv encounterSusalisandro DewittProMedica Physicians CardiologyStart: 07-31-2023 End: 17-14-8282Paynbjg encounter procedureMD Cristian Muñoz Work Phone: [facility] Work Phone: Start: 96-38-3649Yvtelv flowsheetFiona Ceja Apling RECORDS MANAGEMENT TECHNICIAN Work Phone: [facility] CI ORTHOPAEDICSStart: 51-92-6532Zhhsux flowsheet Fiona Ceja Apling RECORDS MANAGEMENT TECHNICIAN Work Phone: [facility] CI ORTHOPAEDICSStart: 07-14-2023 End: 01-50-4019Jeldir outpatient new 30 minutesMarlena Ceja Apling RECORDS MANAGEMENT TECHNICIAN Work Phone: [facility] CI ORTHOPAEDICSComment on above:Right shoulder pain, unspecified chronicity (Primary Dx); Impingement of right shoulderStart: 18-92-6454AguklbVhmvjkwm Bialecki 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 Work Phone: [facility] CardiologyComment on above:Med RefillStart: 33-07-3232sypwyytxlwZUDKPTO A [facility] Centertart: 05-21-2023 End: 42-48-6767nagbhvicahTswnap Smith Other [employer] BI[facility]IXun[facility] [employer] Other Start: 12-13-3337Vyxsha-up encounterBrandenburg Center Coordinated Care ClinicStart: 78-51-2430Quzzatqfj encounterUnm Carrie Tingley Hospitalshelly [facility] Care ClinicStart: 15-48-0460Bmtwcpygcj RecurringMD Espinoza Hoy Work Phone: [facility]-Weight Management Work Phone: Start: 03-19-2023 End: 39-56-0511mxbeewthkjUvpklm Smith Other [employer] Other Start: 18-47-0444Qierwt-up encounterUnm Carrie Tingley Hospitalshelly [facility] Coordinated Care ClinicStart: 03-09-2023 End: 30-33-7351abutkxhcbqQV Cristian Landaverde Hoy Work Phone: [facility] Work Phone: Start: 03-09-2023 End: 40-43-5108Paxrxxh encounter procedureMD Cristian Muñoz Work Phone: [facility]-Self Pay Exercise ProgramStart: 03-03-2023 End: 93-20-2186igmxyrfxnzWzsxeq Smith Other [employer] Other Start: 97-47-5605Hzpndcsvn encounterMitchel Aryan [facility] Care ClinicStart: 11-84-7512bqzltfwbbjVHQGUAVMadison Healthtart: 02-05-2023 End: 79-61-9716tlqilzbfvzGnik Fitt Other [employer] Other Start: 62-65-6477KKT [employer] 2-10 30MDlisandro [facility] Care ClinicStart: 02-03-2023 End: 11-14-4072waujivppmfDxmrsz Smith Other [employer] Other Start: 36-73-1280Kqcsga-up encounterMitchel Baeza [facility] ClinicStart: 88-76-1979yzsvcdrrisXWSZAABMadison Healthtart: 01-14-2023 End: 33-86-4639emuunmtsqdHasjtz Smith Other [employer] Other Start: 34-69-3133Pdmxizeuu encounterMitchel Baeza [facility] Care ClinicStart: 01-06-2023 End: 32-18-3143udyvllyweeMlxq Fitt Other [employer] Other Start: 06-71-6510HYU FOR [employer] 2-10 30MDawSt. Elizabeth Hospital Care ClinicStart: 30-17-1463Xpbddudow encounterDaaustin [facility] ClinicStart: 01-02-2023 End: 91-61-2809ijmgrnqcboRnbqna Smith Other [employer] Other Start: 14-87-4118PnylldkvgGallup Indian Medical Center Care ClinicStart: 12-09-2022 End: 33-97-1956qwbeieljbxIZBSRGVL [facility] Ohiotart: 43-23-6105rtvlkjzolwIE MARISELA Brown OTTOFacility:U8Ufpva: 06-25-2022 End: 25-67-0012obwjqgslqyVT CRISTIAN HOY .Facility:K3Negzf: 06-19-2022 End: 36-99-9686fevtdgkuxcWW CRISTIAN HOY .Facility:V8Uqbav: 04-30-2022 End: 65-91-5103kpwgngxrrjMH CRISTIAN HOY .Facility:A7Whstl: 04-19-2022 End: 05-45-2815dcffuezsiiBN CRISTIAN HOY .Facility:F7Ybwey: 02-12-2022 End: 17-69-4491fzthdzvvmnQE CRISTIAN HOY .Facility:R7Duyxv: 01-18-2022 End: 64-67-2015gvxiktqtokVM DOCTOR MISCFacility:J9Cuckl: 01-07-2022 End: 05-98-4075rrzpxygjkcOY CRISTIAN HOY .Facility:O0Fosuu: 12-15-2021 End: 89-27-9849ppyvscpndgEzydql Dymond Other [employer] Other Start: 11-05-7926Pyqtpt outpatient visit 15 minutes Bernarda McnealFPG Urgent Care ClydeStart: 08-10-2021 End: 38-16-6091exvyjdsxhrNowma Akers Other [employer] Other Start: 90-69-9924Bzjoif outpatient visit 15 minutes Mila HartFPG Urgent Care ClydeStart: 07-19-2019 End: 13-53-9389Tjfhonu encounter procedureSARAH Rosa [facility] Start: 07-19-2019 End: 94-33-0263Lifqmbutio hospital visit by physicianDouglas HoyMTHZ Laboratory Comment on above:Screening mammogram, encounter for; Well female exam with routine gynecological exam Procedures DateProcedureProcedure DetailPerforming ClinicianStart: 17-63-0950Htynqsfhhmg Jada Cunha PTStart: 97-79-2338Amkwoxqihf examination knee 3 viewsClint Boogie DO Work Phone: Start: 69-38-9825Uiwuewt CTDoujaswant Muñoz MD Work Phone: Start: 40-88-5828Szfevb-up visitFollow-upLORA S SAHMARANIStart: 40-13-5302Xnttnmfjki examination knee 3 viewsClint Boogie DO Work Phone: Start: 93-44-7171Nieizwjcak examination knee 3 views Clint Boogie DO Work Phone: Start: 22-54-2270AU KNEE 1 OR 2 VIEWS RIGHTClint Boogie DO Work Phone: Start: 18-23-4025Itguq knee replacementJason Chuyita Start: 71-32-4190OJ LOWER EXTREMITY W/O CONTRAST RIGHT Clint Boogie DO Work Phone: Start: 02-88-2754OY WITH CULT RFLXClint Boogie DO Work Phone: Start: 75-56-9110Dpwarsdyud examination knee 3 views Clint Boogie DO Work Phone: Start: 14-71-0569Z-ray of right kneePHYSICIAN NO FAMILYStart: 24-10-3090Dhkrnxohevt of kneeMD Cristian Hoy Work Phone: Start: 69-99-3485Ewbyfbssayf of kneeJason Brown Start: 19-56-9429O-ray of left kneeMD Cristian Hoy Work Phone: [phone]-art: 52-74-1178H-ray of right kneeMD Cristian Hoy Work Phone: [phone]-art: 1823Pfsyk cultureMD Cristian Hoy Work Phone: Start: 80-25-7601Ety routine ecg w/least 12 lds w/i&r Deisy Simmons MD Work Phone: Start: 16-75-6400Solqxyuosuarvu aspir&/inj major jt/bursa w/o usMaria B Apling RECORDS MANAGEMENT TECHNICIAN Work Phone: Start: 93-15-4368Sfczuybzmxj observation [Identifier] in Cervix by Cyto stainSamanamadeo Vazquezi 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 Work Phone: Start: 64-28-4743KndgobgwyuyWpgxg Apling RECORDS MANAGEMENT TECHNICIAN Work Phone: Start: 41-66-4069UjvtirjimnqDemej Brown Start: 98-24-7928OthvurpxqlaticmvmzkbvnkyzuYtpqt Brown Start: 91-38-0349Evnafn pap by shanika BAINSSStart: 03-92-8761Obyvfbmshrc observation [Identifier] in Cervix by Cyto stainMaria Apling RECORDS MANAGEMENT TECHNICIAN Work Phone: Bone spur of right shoulderClint Boogie Lipoma (disorder)Clint Boogie Comment on above:armLoop electrosurgical excision procedureClint Boogie Plan of Treatment DateCare ActivityDetailAuthorStart: 90-88-9123SYoU,Tdap and Td Vaccines (2 - Td or Tdap)DTaP,Tdap and Td Vaccines (2 - Td or Tdap)[facility] SystemStart: 35-58-5109Jjiuqmegh for malignant neoplasm of colonNOMS HealthcareStart: 49-28-4178Uvhdawlua for malignant neoplasm of breastMammogramNOMS Healthcare Start: 56-93-7723Bpnwq BMI ScreeningAdult BMI ScreeningThe Christ Hospital System Start: 05-68-0949Rikuftk ScreeningTobacco ScreeningProSelect Medical [facility] SystemStart: 07-15-8518Sgrkk BMI ScreeningAdult BMI ScreeningProSelect Medical [facility] SystemStart: 70-37-7646Vwipgrw ScreeningTobacco ScreeningProSelect [facility] SystemStart: 06-30-2025 End: 98-16-2512Whlhqel encounter procedureNOMS NB ORTHOStart: 04-20-2025 End: 47-40-5202kjmswhbkdfCTYV [facility] Physical TherapyComment on above:Arrived Start: 04-18-2025 End: 97-40-5681jfirkmdafj10/10/2025 8:00 AM EST Treatment [facility] [address] [place], [place] Mellisa Farrell PTANOMS [place] Physical TherapyStart: 04-13-2025 End: 56-62-4437ttgugwpfaaUDVQ [place] Physical TherapyComment on above:Arrived Start: 04-11-2025 End: 31-01-5479sykvaklfegHVRF [place] Physical TherapyComment on above:Arrived Start: 04-08-2025 End: 50-45-8296ecawplxkqiBDVX [place] [facility] TherapyComment on above:Iliotibial band syndrome of right side (Primary Dx)Start: 04-04-2025 End: 92-31-9691zxxnemdkod79/27/2025 10:00 AM EDT Treatment [facility] [address] [place] [address] Sunshine Lazo BARREL LOADER AND CLEANER ArrivedNOMS [place] Physical TherapyComment on above:ArrivedStart: 03-30-2025 End: 22-99-5373pccnutesysJSMW [place] Physical TherapyComment on above:Iliotibial band syndrome of right side (Primary Dx)Start: 03-23-2025 End: 49-42-4009gvxrcuagos66/15/2025 11:30 AM EDT Evaluation [facility] [address] [place] [address] Jada Cunha PT ArrivedNOMS [place] Physical TherapyComment on above: ArrivedStart: 38-45-5378CBQFT-19 Vaccine ( season)COVID-19 Vaccine ( season)[facility]: 90-72-2475Bmowbfjox vaccination [facility]Start: 02-02-2025 End: 43-61-8556KJV Breast - bilateral screeningMammography screening bilateral with CAD Imaging Routine Screening mammogram, encounter for Expected: 02/02/2025 (Approximate), Expires: 02/02/2026[facility] Work Phone: comment on above:Expected: 02/02/2025 (Approximate), Expires: 02/02/2026Start: 02-02-2025 End: 71-48-8688Pdwijsu encounter sfuxxxenl11/27/2025 1:15 PM EDT Office Visit [facility] [address] [facility] [place] [address] Darron Bond MD [address] [place] [address] [facility] Obstetrics/GynecologyStart: 79-07-1563Nndxb BMI ScreeningAdult BMI Screening [facility]: 42-66-8941Yrlhkuz ScreeningTobacco Screening [facility]ertart: 46-93-7423Lysnqlfbt for malignant neoplasm of cervixPap SmearThe Christ Hospital SystemStart: 12-27-2024 End: 49-41-0738Dlykduc encounter /21/2025 9:00 AM EDT Office Visit [facility] [address] [place] [address] Clint Boogie DO [address] [place] [address] [facility]OStart: 21-86-4674Qgcqk BMI ScreeningAdult BMI ScreeningThe [facility] SystemStart: 80-65-6745Vdysbys ScreeningTobacco ScreeningNov[facility] Centertart: 08-12-2024 End: 46-86-9497Tneorsd encounter fvjxdcmee27/06/2025 9:45 AM EST Office Visit [facility] [address] [place] [address] Clint Boogie, [address] [place] [address] [facility]OStart: 07-16-2024 End: 30-73-4358nwjprnftcy54/07/2025 12:00 PM EST Treatment [facility] [address] [place] [address] Sashay, Sunshine, BARREL LOADER AND CLEANER [facility] PTStart: 07-15-2024 End: 71-99-3463Azjsovg encounter vpquugffr16/06/2025 2:15 PM EST Office Visit [facility] [address] [place] [address] Clint Boogie, [address] [place] [address] [facility] OR[facility]OStart: 06-24-2024 End: 42-38-4759pvabgdnhhsFMOO CI PTComment on above:Primary osteoarthritis of right kneeStart: 06-17-2024 End: 60-88-5350Osucigw encounter occnzkeot88/09/2025 2:00 PM EST Office Visit [facility] [address] [place] [address] Clint Boogie DO [address] [place] [address] [facility] ORTHOStart: 06-17-2024 End: 57-38-6340Iocgevufbo complete panel - UrineUrinalysis with reflex microscopic Lab Routine Pre-op testing Expected: 06/17/2024 (Approximate), Ex mai: 06/17/2025[facility] Work Phone: Comment on above:Expected: 06/17/2024 (Approximate), Expires: 06/17/2025Start: 03-31-2024 End: 92-16-7208Huxlk panelLipid panel Lab Routine Other hyperlipidemia High triglycerides Medication monitoring encounter Expected: 03/31/2024 (Approximate), Expires: 12/29/2024[facility] Work Phone: Comment on above:Expected: 03/31/2024 (Approximate), Expires: 12/29/2024Start: 03-24-2024 End: 31-63-5222Kkehz panelLipid panel Lab Routine Other hyperlipidemia Expected: 03/24/2024 (Approximate), Expires: 09/22/2024[facility] Work Phone: Comment on above:Expected: 03/24/2024 (Approximate), Expires: 09/22/2024Start: 51-99-7056FSOVH-19 Vaccine ( season)COVID- 19 Vaccine ()[facility] Adstart: 19-69-3466REQZQ-19 Vaccine ()COVID-19 Vaccine ()[facility] [employer]start: 12-53-2611Rxmflcpjz vaccinationInfluenza VaccineProUSDS SystemStart: 52-52-0791Q-ray of right kneeXR knee RT 3V - NOT FOR ER USE [facility]: 97-64-1374IY Knee - right 3 Views [facility]: 01-14-2024 End: 46-80-6765VHX Breast - bilateral screeningMammography screening bilateral with CAD Imaging Routine Screening mammogram, encounter for Expected: 01/14/2024 (Approximate), Expires: 01/12/2025[facility] Work Phone: comment on above:Expected: 01/14/2024 (Approximate), Expires: 01/12/2025Start: 2024 End: 56-53-6205Iujirmm encounter procedureProMedica Physicians Obstetrics/GynecologyStart: 69-29-0437Yyrtb BMI ScreeningAdult BMI Screening Pro[facility]usirttart: 69-13-5021Njnkxlv ScreeningTobacco Screening [facility] SystemStart: 42-10-3587WvuaimztqMartins Ferry Hospitaltart: 43-34-4878CcnohbmybMartins Ferry Hospitaltart: 93-58-3421O-ray of left kneeXR knee LT 2VMartins Ferry Hospitaltart: 85-52-1631T-ray of right knee XR knee RT 4V*[facility]: 39-23-0436LR Knee - left 2 ViewsMartins Ferry Hospitaltart: 94-99-3431AU Knee - right 4 Views [facility]: 73-58-1010Cmmvazcd identified in Urine by CultureMartins Ferry Hospitaltart: 09-26-2023 End: 21-10-0527Qvjmako encounter zoehiilxj26/19/2024 8:15 AM EDT Office Visit [facility] [address] [place] [address] Maxi Badillo MD [address] [place] [address] Deisy Simmons MD [address] [place] [address] [facility] CardiologyStart: 08-04-2023 End: 79-71-4116Oqkzsuu encounter wdolhskdo75/26/2024 8:15 AM EST Office Visit [facility] [address] [place] [address] Maxi Badillo MD [address] [place] [address] [facility] CardiologyStart: 07-28-2023 End: 47-88-4608Kwhzbzh encounter zpscwzxyj62/19/2024 8:00 AM EST Office Visit [facility] [address] [place] [address] Fiona Winn NP [address] [place] [address] [facility] ORTHOPAEDICSStart: 07-14-2023 End: 77-42-6909Nrxzvhm encounter ckbtnuudr68/05/2024 8:30 AM EST Office Visit [facility] [address] [place] [address] Fiona Winn, RECORDS MANAGEMENT TECHNICIAN [address] [place] [address] Right shoulder pain, unspecified chronicity (Primary Dx)[facility] ORTHOPAEDICSComment on above:Right shoulder pain, unspecified chronicity (Primary Dx)Start: 81-11-9162NIBUJ-19 Vaccine ( season)COVID-19 Vaccine ( season)[facility] SystemStart: 99-26-0197Pbcgoeurg vaccinationNOMS HealthcareStart: 54-60-5494Fxtacseic for malignant neoplasm of cervixNOMS HealthcareStart: 61-72-9132Ydezlevn Vaccine (1 of 2)Shingles Vaccine (1 of 2)[employer] Phone: start: 97-48-1232Wkbwdasth vaccinationFlu vaccine (#1) [facility] Phone: start: 06-81-9265Weijvoko screenDiabetes screenMercy Rippld Work Phone: start: 50-92-6239Qwxrn screenLipid screenCurvo Work Phone: start: 57-14-5571Xktszvfee for malignant neoplasm of breastMammogramNOMS HealthcareStart: 66-98-8274Dxfdpkbrb for malignant neoplasm of cervixNOMS HealthcareStart: 14-03-7641Dtndacoi cancer screenCervical cancer screenMerGura Gear Phone: start: 53-80-6901Fusrarbxk for malignant neoplasm of cervixPap SmearNOMS HealthcareStart: 17-74-1879TRuW,Tdap and Td Vaccines (1 - Tdap)DTaP,Tdap and Td Vaccines (1 - Tdap)[facility] SystemStart: 28-10-3631Dslzneyun B Vaccines (1 of 3 - 19+ 3-dose series)Hepatitis B Vaccines (1 of 3 - 19+ 3-dose series)[facility] HealthcareStart: 94-45-4853Ofwpq BMI Follow Up PlanAdult BMI Follow Up PlanThe Christ Hospital SystemStart: 00-55-8121EFD screen HIV screenMercy Health St. [facility] Work Phone: start: 68-04-2274Givowcitwc ScreeningDepression ScreeningProSelect Medical Special[facility] SystemStart: 58-63-6380JDdG/Tdap/Td vaccine (1 - Tdap) DTaP/Tdap/Td vaccine (1 - Tdap)[facility] Work Phone: start: 36-65-9862SBtX/Tdap/Td Vaccines (1 - Tdap) DTaP/Tdap/Td Vaccines (1 - Tdap)[facility] HealthcareStart: 99-33-0834PBM Vaccines (1 of 1 - Standard series)MMR Vaccines (1 of 1 - Standard series)[facility] Healthcare Start: 94-17-1308Wjtqdaban for malignant neoplasm of colonNOMS Healthcare End: 10-38-0231Dhizbuehwbnlg procedure, preparation of smear, genital sourcePAP SMEAR Lab Routine Screening mammogram, encounter for Well female exam with routine gynecological exam 1 Occurrences starting 07/19/2019 until 07/19/2019 [facility] Work Phone: comment on above:1 Occurrences starting 07/19/2019 until 07/19/2019 End: 95-66-5869Ornyq 1996 panel - Serum or PlasmaLipid profile Lab Routine Dyslipidemia 1 Occurrences starting 09/26/2023 until 4[facility] Work Phone: Comment on above:1 Occurrences starting 09/26/2023 until 4Patient EducationKnow your [facility] Work Phone: Immunizations Immunization DateImmunizationNotesCare AckmssdyFfavwwlg88-29-6821qkdvnxjih virus vaccine, unspecified formulationZahira Tim PA-C Work Phone: [facility]burgVikegk62-93-6120yzmzokzst virus vaccine, unspecified formulationSmeche Sommer 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 Work Phone: [facility]burgMqkqpa87-25-5272HTPKY-40 mRNAScott (Pfizer)MD Cristian Muñoz Work Phone: [facility]06-01-2021COVID-19 mRNAScott (Pfizer)MD Cristian Muñoz Work Phone: [facility] Payers DatePayer CategoryPayerPolicy [id number] of Defense ( and others)[id number] of Defense ( and others)[id number] 67-27-9836Zjptujlqdj of Defense ( and others) [place] xxxxxxxxx 06/09/2019-Presentxxxxxxxxx 1.2.840.293226.1.13.239.2.7.3.593212.315 49-47-6594Dlkromordm of Defense ( and others) 1.2.840.145356.1.13.693.2.7.3.997087.46888-18-8213GPZAXYW () 1.2.840.175473.1.13.693.2.7.9.211238.890252.59593-98-7044Ruldosvqlc of Defense ( and others)[id number] 2.0.1.409483.3.579.2.19133-72-0696Zyqtirp6815004 2.0.1.040102.3.579.2.58928-96-1550Uesyqwb2183896 2.16.840.1.717316.3.579.2.28872-57-1777Adxgybq1196309 2..840.1.147866.3.579.2.14438-41-8666Ahfroup2850162 2.840.1.228429.3.579.2.25406-74-4570Hjkrmzo9905474 2.840.1.644833.3.579.2.22584-89-5939Fvewuoh5435387 2.840.1.097197.3.579.2.13000-66-8892Tubxuop2490267 2.840.1.473216.3.579.2.79766-16-9873Ytuyhvl3213779 2.840.1.678136.3.579.2.85689-34-8470Csktgwz69552119 2.840.1.561128.3.579.2.74413-15-6770Rxmofbe27172005 2.0.1.165300.3.579.2.12777-31-8966Lashvcn57080052 2.0.1.224587.3.579.2.08533-53-5798Jmstybg362631976 2.0.1.059898.3.579.2.497489-97-2212Etecstj788955967 2.0.1.609467.3.579.2.602078-32-4167Sagjhgl910981696 2..1.423359.3.579.2.609470-54-3835Awanjnb341336289 2.840.1.873062.3.579.2.451741-22-7648Fpelcto801411924 2.840.1.392554.3.579.2.027449-60-8937Yclztcx210688357 2.840.1.620382.3.579.2.627536-49-8401Jyykjoa90662529 2.840.1.904040.3.579.2.331896-09-0464Jqvqqle41480140 2.16.840.1.029951.3.579.2.534214-22-0741Xnnoojm51241195 2.16840.1.605550.3.579.2.406714-17-1463Eahwvwl85718815 2.840.1.412058.3.579.2.561727-77-5252Erwbswq93306005 2.0.1.418855.3.579.2.398244-33-9486Mtgbige15892250 2.0.1.095880.3.579.2.554864-06-0942Fnlnngw51830994 2.0.1.819702.3.579.2.839325-55-0017Yzxcsfx31595474 2.0.1.020347.3.579.2.421582-74-0366Bsuials84359290 2.0.1.178472.3.579.2.128458-45-9475Bxeqctg27135688 2.0.1.094013.3.579.2.798732-43-0702Ewavnbb32334137 2.0.1.431673.3.579.2.690604-09-2659Torfaao7457458 2.0.1.243264.3.579.2.302643-44-8021Tnyjcux6833327 2.0.1.471471.3.579.2.148832-80-0650Hgonlxv3775663 2.840.1.757281.3.579.2.394349-11-2423Hgcspnk8781664 2.840.1.236578.3.579.2.259360-55-3964Topkamj2937413 2.0.1.171197.3.579.2.101192-25-0528Mhfdust4798149 2.16.0.1.050323.3.579.2.510158-44-1716Thjbvjc2804426 2.16.0.1.156089.3.579.2.442549-73-7008Dailjdf9075950 2..0.1.395262.3.579.2.740625-26-8567Gdwhmyu6502901 2..0.1.483172.3.579.2.774704-33-7716Cnqaqvp5913946 2..0.1.158689.3.579.2.892106-86-3608Uxoobqr2994890 2.0.1.415519.3.579.2.517451-50-4719Mesqytl4568942 2.0.1.441357.3.579.2.665586-97-6597Nxtkahv6061382 2.0.1.071632.3.579.2.820701-89-7021Yzfoecn9733919 2.0.1.887497.3.579.2.004452-00-6909Lgtxenmcwn of Defense ( and others)[id number] of Defense ( and others)[facility] [id number] 73y214rx-gv0f-1099-fex1-93cc30s1f150Dxyl-sejQxbq Pay [id number] Social History DateTypeDetailFacilityStart: 07-19-2019 End: 88-61-2981Orzfyft smoking status NHISNever smokerNOMS HealthcareStart: 07-19-2019 End: 19-83-2404Hnoisjg intakeCurrent drinker of alcohol (finding)[facility] Work Phone: start: 47-85-0581Krepseb CommentsAtrium Health University [facility] Health Work Phone: sex Assigned At BirthNot on [facility] Work Phone: start: 07-13-2023 End: 47-76-3855Hnf Assigned At [facility]tart: 05-62-7512Lhy Assigned At [facility]: 07-13-2023 End: 59-67-9519Zlbybcj of Social functionNOMS HealthcareStart: 12-83-5440Fxitapa Comment1-2 drinks monthly or less, coffee 2-3 cups per dayNOMS HealthcareStart: 32-47-0148Iyxssw identityIdentifies as female gender (finding)[facility] Start: 06-06-2022 End: 47-24-4122Ieflvvn use and exposureSmokeless tobacco non-userNOMS Healthcare Start: 66-44-4660IstyswgyvWwlylqtAbjEbhfpk Health SystemStart: 71-78-3437Pnxnrjf CommentraMercy Health Perrysburg Hospital SystemStart: 25-54-0908Lzfwet orientation Heterosexual (finding)[facility] SystemStart: 02-09-2019 End: 61-39-8937EonVezidh (finding)[facility] Medical Equipment Procedure CodeEquipment CodeEquipment Original TextEquipment IdentifierDatesKNEE TOTAL ROBOT ARTHROPLASTY Clint Boogie DO A 06/30/24 Unknown Knee RFDAStart: 84-92-1688AABW TOTAL ROBOT ARTHROPLASTY Clint Boogie DO A 06/30/24 Unknown Knee R FDAStart: 26-51-5548QPNQ TOTAL ROBOT ARTHROPLASTY Clint Boogie DO A 06/30/24 Unknown Knee RFDAStart: 32-55-1063ZTRY TOTAL ROBOT ARTHROPLASTY Clint Boogie DO A 06/30/24 Unknown Knee RFDAStart: 06-30-2024 Goals DatePatient GoalDesired Activity/State Functional Status YuqoIwvphsnmjdXgedamKumisyee80-62-2674Rfuukejcmp StatusAk[facility] Clinical Notes 08-10-2021 to 04-06-2025 Note Date & NrkzUhgjXfbsuhhn89-17-9627 Miscellaneous Notes* Telephone Encounter - Shirley Flores RN - 04/06/2025 3:09 AM EDT Please sign and route. Thank you EDGAR 09/27/24 Lipids 12/07/24 documented in this encounterKettering Health [facility]burg10-29-2025 Telephone encounter Note* Telephone Encounter - [place] RN - 04/06/2025 3:09 AM EDT Please sign and route. Thank you EDGAR 09/27/24 Lipids 12/07/24 [facility] Afwfso65-08-6077 History of Present illness Narrative* Darron Bond MD - 02/02/2025 1:15 PM EDT Chief Complaint: Well-woman gynecology exam SUBJECTIVE HPI Carly Cesar is a 55 y.o. who presents for her annual well-woman exam. The following portions of the patient's history were reviewed and updated as appropriate: allergies, current medications, past family history, past medical history, past social history, past surgicalhistory and problem list. Review of Systems A comprehensive review of systems was negative. Allergies No Known Allergies ObGyn Hx OB History Para Term AB Living 3 1 SAB IAB Ectopic Multiple Live Births 1 # Outcome Date GA Lbr Billy/2nd Weight Sex Type Anes PTL Lv 3 2008 Vag-Spont 2 SAB 2008 1 1988 Vag-Spont Medical Hx Past Medical History: Diagnosis Date Allergic Anemia Anxiety Arthritis Back pain Bursitis Chest pain Depression ZUÑIGA (dyspnea on exertion) Eczema Fibrolipoma Gain of weight GERD (gastroesophageal reflux disease) Helicobacter pylori infection Hyperlipidemia Hypertension Obesity RLS (restless legs syndrome) Rotator cuff syndrome Tendonitis Tired Varicella Visual impairment glasses, contacts Surgical Hx Past Surgical History: Procedure Laterality Date ARTHROSCOPY SHOULDER Right 02/24/2019 Performed by Jr Lozada DO at [facility] CERVICAL BIOPSY W/ LOOP ELECTRODE EXCISION COLONOSCOPY 05-16-21 CYSTECTOMY EXTERNAL EAR SURGERY KNEE SURGERY Right RESECTION DISTAL CLAVICLE Right 02/24/2019 Performed by Jr Lozada DO at [facility] Family Hx Family History Problem Relation Age of Onset Heart disease Mother Ulcers Mother Diabetes Mother Hypertension Mother Stroke Mother Heart attack Father Heart disease Father Alcohol abuse Father Early Father No Known Problems Sister Muscular dystrophy Brother No Known Problems Daughter No Known Problems Son Cancer Maternal Grandmother lung Stroke Paternal Grandmother No Known Problems Sister Suicide Attempts Brother Alcohol abuse Brother Drug abuse Brother Early Brother Diabetes Sister Early Brother Stroke Sister Alcohol abuse Brother Drug abuse Brother Early Brother Diabetes Sister Early Brother Stroke Sister Psychosocial Social History Socioeconomic History Marital status: Tobacco Use Smoking status: Never Smokeless tobacco: Never Vaping Use Vaping status: Never Used Substance and Sexual Activity Alcohol use: Yes Alcohol/week: 1.0 standard drink of alcohol Types: 1 Glasses of wine per week Comment: rare Drug use: Never Sexual activity: Yes Partners: Male control/protection: Other Other Topics Concern Caffeine Use Yes Social Drivers of Health Food Insecurity: No Food Insecurity (09/27/2024) Hunger Screening Food Insecurity - Worry: Never True Food Insecurity - Inability: Never True Interpersonal Safety: Not At Risk (06/05/2023) [facility] from [facility] Humiliation, Afraid, Rape, and Kick questionnaire [...] 11 fenofibrate micronized (LOFIBRA) 67 mg capsule TAKE 1 TABLET BY MOUTH EVERY DAY IN THE MORNING BEFORE MEALS 90 capsule 3 FeroSuL 325 mg (65 mg iron) tablet Take 1 tablet (325 mg total) by mouth in the morning. uevxahpq-luco-RX-calcium &mins (THERAGRAN-M) 9 mg iron-400 mcg tablet [...] 90 tablet 0 tirzepatide, weight loss, (ZEPBOUND) 10 mg/0.5 mL solution Inject 10 mg under the skin every 7 days. UNABLE TO FIND Eye promise 1 tablet daily No current facility-administered medications for this visit. Allergies No Known Allergies OBJECTIVE Vitals Vitals: 02/02/25 1322 BP: 130/87 Pulse: 102 Weight: 70.3 kg (155 lb) Height: 157.5 cm (5' 2 ) Physical Exam Exam conducted with a core maker helper present. Constitutional: Appearance: Normal appearance. HENT: Head: [...] ASSESSMENT & PLAN Carly Cesar is a 55 y.o. who presents for her annual gynecology exam. Routine screening - Last mammogram: ordered - Last pap: 2021 Darron Bond MD documented in this encounterKettering Health [facility]08-13-2025 Miscellaneous Notes* Telephone Encounter - Crystal Solorio RN - 01/19/2025 1:36 PM EDT Pt dropped off a CTA of the heart scan her PCP ordered he talked to her about increase her crestor and adding zetia? Can you please review and make any recommendations per pt request. The test I scanned under media. Thx slm * Telephone Encounter - Zahira Tim PA-C - 01/19/2025 1:36 PM EDT Calcium score of 0. No significant coronary artery disease. Most recent LDL of 51 per lipid panel 12/2024. Okay to continue current management, would not increase Crestor or add Zetia. Thank you! * Telephone Encounter - Crystal Solorio RN - 01/19/2025 1:36 PM EDT Called pt with results of CTA of cors calcium scoring O. No changes in meds or adding any meds.slm documented in this encounterKettering Health [facility]08-13-2025 Telephone encounter Note* Telephone Encounter - Crystal Solorio RN - 01/19/2025 1:36 PM EDT Pt dropped off a CTA of the heart scan her PCP ordered he talked to her about increase her crestor and adding zetia? Can you please review and make any recommendations per pt request. The test I scanned under media. Thx slm [facility]08-13-2025 Telephone encounter Note* Telephone Encounter - Zahira Tim PA-C - 01/19/2025 1:36 PM EDT Calcium score of 0. No significant coronary artery disease. Most recent LDL of 51 per lipid panel 12/2024. Okay to continue current management, would not increase Crestor or add Zetia. Thank you! [facility]08-13-2025 Telephone encounter Note* Telephone Encounter - Crystal Solorio RN - 01/19/2025 1:36 PM EDT Called pt with results of CTA of cors calcium scoring O. No changes in meds or adding any meds.slm [facility]08-12-2025 Evaluation note* Author Charisma Eid [facility] DaytonAuthoredNovember 2024 9:44amStart weight: 211.7lbs. She is down [...] now doing nautless strength training at the [facility]. Over time, hopefully she can increase exercise both cardio and strength training. She should continue to work regularly with our rn telephone triage and have her bioimpedance monitored and she [...] exercise and continued long-term weight loss. 4. Lpzalexsipbl-gzkq-pylvnjqvlm. She may be able to cut back [...] her PCP. She will discuss with her look out tower fire watcher increasing her statin dose or adding Zetia due to her elevated LP(a) and strong family history of CAD/CVA. [facility] Work Phone: 1(836) 595-115008-12-2025 Evaluation note* Author Sandra Jules [facility] DaytonSylvesterhoChanelle 2024 10:22amStart weight: 211.7lbs. She is down 55.2 lbs. [...] now doing nautless strength [facility]. Over time, hopefully she can increase exercise both cardio and strength training. She should continue to work regularly with our rn telephone triage and have her bioimpedance monitored and she should continue to work on good sleep hygiene. She understands the benefits of eating healthy Whole [employer] and getting regular exercise to help lower her CAD and stroke risk with known increased LP(a) at 330. She should continue to treat with long-term [...] exercise and continued long-term weight loss. 4. Joznmeimxkgv-zbja-wufszaedsv. She may be able to cut back [...] her PCP. She will discuss with her look out tower fire watcher increasing her statin dose or adding Zetia due to her elevated LP(a) and strong family history of CAD/CVA. [facility] Work Phone: 1(259) 244-739608-12-2025 Evaluation note* Author Sandra Jules [facility] DaytonMely 2024 9:22amStart weight: 211.7lbs. She is down 55.2 lbs. [...] now doing nautless strength training at the [facility]. Over time, hopefully she can increase exercise both cardio and strength training. She should continue to work regularly with our rn telephone triage and have her bioimpedance monitored and she should continue to work on good sleep hygiene. She understands the benefits of eating healthy Whole Foods and getting regular exercise to help lower her CAD and stroke risk with known increased LP(a) at 330. She should continue to treat with long-term [...] exercise and continued long-term weight loss. 4. Ibqatnplgcue-rvir-grbvdyqhzt. She may be able to cut back [...] her PCP. She will discuss with her look out tower fire watcher increasing her statin dose or adding Zetia due to her elevated LP(a) and strong family history of CAD/CVA. [facility] Work Phone: 1(663) 775-482807-31-2025 Miscellaneous Notes* Telephone Encounter - Elizabeth Pan CMA - 01/06/2025 3:09 AM EDT Edgar: 09/27/2024 Lipid: 04/29/2024-[facility] encounter Note* Telephone Encounter - Elizabeth Pan CMA - 01/06/2025 3:09 AM EDT Edgar: 09/27/2024 Lipid: 04/29/2024-ABN [facility]07-21-[facility] History of Present illness Narrative* Clint Boogie, - 12/27/2024 9:00 AM EDT Images from the original note were not included. @ENCDATE@ Carly Ferdinand Cesar is a 54 y.o. female who presents for Pain of the Right Knee HPI: History of Present Illness The patient is a 54-year-old female who is 6 months status post right total knee arthroplasty, withthe surgery performed on 06/30/2024. She reports that [...] Laura Aviles Other (bleeding ulcer) Mother Laura Monroechristophe Diabetes Mother Laura Bartonruba Hypertension Mother Laura Bartonruba Stroke Mother Laura Bartonruba Heart attack Father Mateusz Jordan Heart disease Father Mateusz Jordan Alcohol abuse Father Mateusz Jordan Muscular dystrophy Brother Bony Jordan Drug abuse Brother Bony Jordan Suicidality Brother Cancer Maternal Grandmother Estefany Kebede Stroke Paternal Grandmother Drug abuse Daughter Tierra Keen Cancer Mother's Sister Mary Ellen Heart disease Sister Channing Jordan Stroke Sister Channing Jordan SOCIAL HISTORY: Social History Tobacco Use Smoking status: Never Smokeless tobacco: Never Vaping Use Vaping status: Never Used Substance Use Topics Alcohol use: Yes Comment: 1-2 drinks monthly or less, coffee 2-3 cups per day Drug use: Never Depression: Not at risk (06/05/2023) Received from [facility] PHQ-2 Patient Health Questionnaire-2 Score: 0 [...] degrees, full extension. Incision is benign and well- healed. No erythema. No effusion. 5 out of [...] note was created using voice recognition through [employer] artificial FL[employer]. documented in this encounterCox [id number] Evaluation note* Author Sandra Jules [facility]AuthoredKsy 2024 1:19pmStart weight: 211.7lbs. She is down 57.2 lbs. [...] training. She should work regularly with our rn telephone triage and have her bioimpedance monitored and continue [...] exercise and continued long-term weight loss. 4. Npgpnvktsghy-ccax-kpqpugfrbw. She may be able to cut back [...] her strong family history of premature CAD. [facility] Work Phone: 1(182) 837-217105-20-2025 Evaluation note* Author Sandra Jules [facility] DaytonAuthoredMay 2024 1:19pmStart weight: 211.7lbs. She is down 57.2 lbs. [...] training. She should work regularly with our rn telephone triage and have her bioimpedance monitored and continue [...] exercise and continued long-term weight loss. 4. Ewhhpovchvsc-jnto-nevbbrlmqr. She may be able to cut back [...] history of premature CAD. Author Charisma Eid [facility] Dayton[facility] 2024 8:45amStart weight: 211.7lbs. She is down 55.2 lbs. [...] training. She should work regularly with our rn telephone triage and have her bioimpedance monitored and continue [...] exercise and continued long-term weight loss. 4. Yctdochrteaa-ccfw-rzvzaadvam. She may be able to cut back [...] her strong family history of premature CAD. [facility] Work Phone: 1(443) 367-266104-21-2025 History of Present illness Narrative* Zahira Tim [...] mg total) by mouth in the morning. glgswdgf-lffx-RE-calcium &mins (THERAGRAN-M) 9 mg iron-400 mcg tablet [...] for family history heart disease (sister with ND at 52 y/o), essential hypertension, hypertriglyceridemia, fibromyalgia. [...] 02/24/2019 Performed by Jr Lozada DO at [facility] CERVICAL BIOPSY W/ LOOP ELECTRODE EXCISION CYSTECTOMY EXTERNAL EAR SURGERY KNEE SURGERY Right RESECTION DISTAL CLAVICLE Right 02/24/2019 Performed by Jr Lozada DO at [facility] Family History Problem Relation Age of [...] Not At Risk (06/05/2023) Received from [facility] Humiliation, Afraid, Rape, and Kick questionnaire [...] Referring Physician: Cristian Muñoz MD [address] [place] [address] Zahira Tim PA-C 09/27/24 0820 documented in this encounterKettering Health [facility]amisburg04-17-2025 History of Present illness Narrative* Clint Brown Chuyita, DO - 09/23/2024 9:15 AM EDT Images [...] Procedure:excised;Disease:hx fibrolipomas TOTAL KNEE ARTHROPLASTY Right 06/30/2024 JAB REVIEW OF SYMPTOMS: The review of systems, [...] daily at bedtime will be sent to [facility] in [place]. If tolerated well and found beneficial, the dosage can be increased to twice daily. Follow-up Follow up in December 2024. Going on a [place] cruise in November. Diagnoses and all orders for this visit: S/P total knee arthroplasty, right - XR knee 3 views right - pregabalin (Lyrica) 75 MG capsule; Take 1 capsule (75 mg) by mouth at bedtime Clint Boogie D.O. Attestation This note was created using voice recognition through [employer]. documented in this encounterCox [id number] History of Present illness Narrative* Simi Aragon, [...] out: 9:40 am Total time: 40 minutes 90588 TherEx x 30 minutes 61404 gait training x 10 minutes Precautions: WBAT [...] a smooth motion = 1. Balance Score: 01/22. Indication of gait: No hesitancy = 1. [...] Therapeutic Activity: All transfers performed at [facility]. Assessment & Plan Pt is making [...] AD with supervision, step to gait pattern. Chcf Goals Goal 1 : Patient will demonstrate [...] and elevating. Pt to start OP at [facility] next week. documented in this encounterCox [id number] History of Present illness Narrative* Clint Boogie, DO - 07/15/2024 2:15 PM EST Images from the original note were not included. @RAMONITATE@ Carly Streeter Arsenio is a 54 y.o. [...] scheduled to start outpatient physical therapy at [facility] next Friday. SUBJECTIVE: MEDICATIONS: Current Outpatient Medications [...] RT FIBER PO Take by mouth HYDROcodone-acetaminophen (Millcreek) 5-325 MG tablet 1-2 tablets, Oral, Every [...] gentle soap and water. A prescription for Millcreek was issued to manage postoperative pain. The [...] XR knee 3 views right - HYDROcodone-acetaminophen ([place]) 5-325 MG tablet; Take 1-2 tablets by mouth every 4 (four) hoursif needed (pain) for up to 7 days Clint Boogie D.O. Attestation This note was created using voice recognition through [employer]. documented in this encounterCox [id number] History of Present illness Narrative* Simi Aragon, [...] out: 9:40 am Total time: 40 minutes 68796 TherEx x 30 minutes 91676 gait training x 10 minutes Precautions: WBAT [...] AD with supervision, step to gait pattern. Contract Manager Goals Goal 1 : Patient will demonstrate [...] and elevating. Pt to start OP at [facility] next week. documented in this encounterCox [id number] History of Present illness Narrative* Simi Aragon, PT - 07/12/2024 9:00 AM EST Physical [...] out: 9:40 am Total time: 40 minutes 84993 TherEx x 30 minutes 10197 gait training x 10 minutes Precautions: WBAT [...] AD with supervision, step to gait pattern. Contract Manager Goals Goal 1 : Patient will demonstrate [...] Pt will improve Tinetti Balance test to 28/ to indicate no fall risk. Plan Planned modality interventions: cryotherapy Planned therapy interventions: bed mobility training, dressing changes, functional ROM exercises, gait training, home exercise program, manual therapy, neuromuscular re-education, soft tissue mobilization, strengthening, stretching, therapeutic activities and transfer training Frequency: 3x/week. Duration in weeks: 6 Treatment plan discussed with: patient Plan details: Educated to continue icing and elevating. documented in this encounterCox [id number] History of Present illness Narrative* Simi Aragon, [...] out: 9:40 am Total time: 40 minutes 11259 TherEx x 30 minutes 99980 gait training x 10 minutes Precautions: WBAT [...] AD with supervision, step to gait pattern. Chcf Goals Goal 1 : Patient will demonstrate [...] continue icing and elevating. documented in this encounterCox [id number] History of Present illness Narrative* Simi Aragon, [...] out: 9:40 am Total time: 40 minutes 71134 TherEx x 30 minutes 23840 gait training x 10 minutes Precautions: WBAT [...] ambulated approx 50' x 2 with slow javeir. Limited knee flexion during swing phase. Tinetti [...] AD with supervision, step to gait pattern. Contract Manager Goals Goal 1 : Patient will demonstrate [...] continue icing and elevating. documented in this encounterCox [id number] History of Present illness Narrative* Simi Aragon, [...] out: 1:50 pm Total time: 40 minutes 41661 TherEx x 30 minutes 41751 gait training x 10 minutes Precautions: WBAT [...] AD with supervision, step to gait pattern. Chcf Goals Goal 1 : Patient will demonstrate [...] continue icing and elevating. documented in this encounterCox [id number] History of Present illness Narrative* Simi Aragon, [...] out: 1:30 pm Total time: 45 minutes 28452 PT Eval x 20 minutes 26010 TherEx x 15 minutes 13940 gait training x 10 minutes Precautions: WBAT [...] AD with supervision, step to gait pattern. Chcf Goals Goal 1 : Patient will demonstrate [...] mobility to achieve PLOF. documented in this encounterCox [id number] Hospital Discharge instructions Patient Education 06/30/2024 11:42:35 [...] as possible. If the spirometer includes a academic coach indicator, use this to guide you [...] provider. Document Revised: 08/14/2020 Document Reviewed: 08/14/2020 [employer] Patient Education 2023 [employer]rupoint. 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 It is therefore advised not to drive until after yourfirst office visit following surgery. FOLLOW-UP OFFICE VISIT: Clint Boogie, DO [facility] [address] [place], [place] [id number] Reviewed: 10-29 Follow Up Care 05/24/2024 16:07:09 With:Clint Boogie Address: [address] [place] [address]- Business (1) When:07/15/2024 14:15:00 Comments:Appointment has already been scheduledCall for any problems. [facility] 01-22-2025 NotePatient Education - Text Pulmonary Medicine [...] possible. ??? If the spirometer includes a academic coach indicator, use this to guide you [...] provider. Document Revised: 08/14/2020 Document Reviewed: 08/14/2020 Elsevier Patient Education ? 2023 [employer]rupoint. [place], [place] [facility] DISCHARGE INSTRUCTIONS: TOTAL KNEE ARTHROPLASTY INCISION CARE: The bandage may be changed by your home Physical Therapist at 7 days postoperatively and worn an additional 7 days. A new Mepilex bandage should then be placed. 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 It is therefore advised not to drive until after yourfirst office visit following surgery. FOLLOW-UP OFFICE VISIT: Clint Boogie DO [facility] [address] [place] [id number] Reviewed: 10-29[facility]01-09-2025 History of Present illness Narrative* Clint Boogie DO - 06/17/2024 2:00 PM EST Images from the original note were not included. @ENCDATE@ Carly Cesar is a 54 y.o. female who presents for Follow-up of the Right Knee (H&P Rt [facility] [place]) HPI: History of Present Illness The [...] increased knee pain. She has a scheduled [place] cruise trip in 11/2024. She has been [...] Not at risk (06/05/2023) Received from [facility], [facility] PHQ-2 Patient Health Questionnaire-2 Score: 0 [...] with a right total knee arthroplasty with [employer] robotic arm assistance. The [employer] platform will be utilized. Surgery will be [...] note was created using voice recognition through [employer]. documented in this encounterCox [id number] Miscellaneous Notes* Telephone Encounter - Margarita Givens [...] taking on med list. documented in this encounterHolden Memorial HospitalUSDS [id number] Telephone encounter Note* Telephone Encounter - Margarita [...] Med marked not taking on med list. [facility]ld [id number] Evaluation note* Author Charisma Eid [facility] DaytonAuthoMarlette Regional Hospitalbruary 2024 9:10amStart weight: 211.7lbs. She is down 49.7 lbs. [...] aerobics, continue to work regularly with our rn telephone triage and continue to work on good sleep [...] exercise and continued long-term weight loss. 4. Msjddfcmhsdq-onnx-lfzzxplftx. She may be able to cut back [...] continue regular lab work with her PCP. [facility] Work Phone: 1(216) 889-742811-07-2024 History of Present illness Narrative* Clint Boogie, DO - 04/15/2024 9:15 AM EST Images from the original note were not included. @ENCDATE@ Carly E Arsenio is a 54 y.o. female who [...] She has seen a provider at the [facility] and most recently saw Dr. Mookie Ospina at [facility]. She underwent arthroscopic surgery by Dr. [...] knee. After a recent visit to the [facility] where she walked and rode a [...] Not at risk (06/05/2023) Received from [facility], [facility] PHQ-2 Patient Health Questionnaire-2 Score: 0 [...] note was created using voice recognition through [employer]. documented in this encounterCox [id number] Miscellaneous Notes* Telephone Encounter - Caridad Madera RN - 02/19/2024 10:27 AM EDT Pt called, leaving for trip and med not signed. Inner Diameter Grinder Tool called [facility]ANDRA, spoke to Xu to call in script. documented in this encounterKettering Health [facility]amisburg09-12-2024 Telephone encounter Note* Telephone Encounter - Caridad Madera RN - 02/19/2024 10:27 AM EDT Pt called, leaving for trip and med not signed. Inner Diameter Grinder Tool called [facility]LEJANDRA, spoke to Xu to call in script. [facility]08-12-2024 Evaluation note* Author Sandra Dhara [facility] 2023 11:14amAssessment: Start weight: 187.1lbs. She is down 24.6 [...] by Meaghan, start to work with our rn telephone triage and continue to work on good sleep [...] Continue regular lab work with her PCP. [facility] Work Phone: 1(424) 883-571208-12-2024 Evaluation note* Author Sandrajones Jules [facility] DaytonAuthoredAugust 2023 11:14amAssessment: Start weight: 187.1lbs. She is down 24.6 [...] by Meaghan, start to work with our rn telephone triage and continue to work on good sleep [...] work with her PCP. Author Charisma Eid [facility] DaytonAuthoredOctober 2023 10:39amStart weight: 211.7lbs. She is down 27.0 lbs. [...] by Meaghan, start to work with our rn telephone triage and continue to work on good sleep [...] Continue regular lab work with her PCP. [facility] Work Phone: 1(295) 607-405608-06-2024 History of Present illness Narrative* Darron Bond [...] Weight Sex Type Anes PTL Lv 3 2009 Vag-Spont 2 SAB 2008 1 1988 Vag-Spont Medical Hx Past Medical History: Diagnosis Date Arthritis Bursitis Chest pain ZUÑIGA (dyspnea on exertion) Fibrolipoma Gain of weight Helicobacter pylori infection Hyperlipidemia Hypertension RLS (restless legs syndrome) Rotator cuff syndrome Tendonitis Tired Visual impairment glasses, contacts Surgical Hx Past Surgical History: Procedure Laterality Date ARTHROSCOPY SHOULDER Right 02/24/2019 Performed by Jr Lozada DO at [facility] CERVICAL BIOPSY W/ LOOP ELECTRODE EXCISION CYSTECTOMY EXTERNAL EAR SURGERY KNEE SURGERY Right RESECTION DISTAL CLAVICLE Right 02/24/2019 Performed by Jr Lozada DO at [facility] Family Hx Family History Problem Relation [...] Not At Risk (06/05/2023) Received from [facility], [facility] Humiliation, Afraid, Rape, and Kick questionnaire [...] mg total) by mouth in the morning. oivetzdg-mghs-UY-calcium &mins (THERAGRAN-M) 9 mg iron-400 mcg tablet [...] lb) Physical Exam Exam conducted with a core maker helper present. Constitutional: Appearance: Normal appearance. HENT: Head: [...] 2021 Darron Bond MD documented in this encounterKettering Health Miamisburg07-23-2024 Miscellaneous Notes* Telephone Encounter - Gemma Elizabeth RN - 12/30/2023 9:50 AM EDT Deisy Simmons MD 12/29/2023 6:38 PM EDT Reviewed. Recommend starting fenofibrate 67 mg daily. Continue with low carb diet, exercise and weight loss. Goal triglycerides less than 150 will plan to recheck lipids in 3 months. Thank you documented in this encounterKettering Health Miamisburg07-23-2024 Telephone encounter Note* Telephone Encounter - Gemma Elizabeth RN - 12/30/2023 9:50 AM EDT Deisy Simmons MD 12/29/2023 6:38 PM EDT Reviewed. Recommend starting fenofibrate 67 mg daily. Continue with low carb diet, exercise and weight loss. Goal triglycerides less than 150 will plan to recheck lipids in 3 months. Thank you [facility]07-23-2024 Miscellaneous Notes* Telephone Encounter - Margarita Givens [...] consider starting low-dose fenofibrate. documented in this encounterKettering Health Miamisburg07-23-2024 Telephone encounter Note* Telephone Encounter - Margarita [...] persistently elevated will consider starting low-dose fenofibrate. [facility]07-08-2024 Miscellaneous Notes* Telephone Encounter - Kay Maria LPN - 12/15/2023 3:47 AM EDT Edgar 09/26/23 Lipid 09/23/23 documented in this encounterKettering Health Miamisburg07-08-2024 Telephone encounter Note* Telephone Encounter - Kay Maria LPN - 12/15/2023 3:47 AM EDT Edgar 09/26/23 Lipid 09/23/23 [facility]06-17-2024 Evaluation note* Author Sandra Jules [facility] 2023 11:14amAssessment: Start weight: 187.1lbs. She is down 24.6 [...] by Meaghan, start to work with our rn telephone triage and continue to work on good sleep [...] Continue regular lab work with her PCP. [facility] Work Phone: 1(635) 526-814604-19-2024 History of Present illness Narrative* Deisy Simmons [...] mg total) by mouth in the morning. gbmijtwf-ysjp-GQ-calcium &mins (THERAGRAN-M) 9 mg iron-400 mcg tablet [...] 02/24/2019 Performed by Jr Lozada DO at [facility] CERVICAL BIOPSY W/ LOOP ELECTRODE EXCISION CYSTECTOMY EXTERNAL EAR SURGERY RESECTION DISTAL CLAVICLE Right 02/24/2019 Performed by Jr Lozada DO at [facility] Family History Problem Relation Age of [...] Not At Risk (06/05/2023) Received from [facility], [facility] Humiliation, Afraid, Rape, and Kick questionnaire [...] MUÑOZ MD Referring Physician: Cristian Muñoz MD [address] [place] [address] documented in this encounterKettering Health Main CampusIris Experience [id number] Miscellaneous Notes* Telephone Encounter - Britany Bell CMA - 09/25/2023 3:59 PM EDT Called patient to remind them to bring their most current copy of their medication list with them to their appt. Patient verbalizes understanding. documented in this encounterKettering Health Main CampusIris Experience [id number] Telephone encounter Note* Telephone Encounter - Britany Bell CMA - 09/25/2023 3:59 PM EDT Called patient to remind them to bring their most current copy of their medication list with them to their appt. Patient verbalizes understanding. [email or web address] Miscellaneous Notes* Telephone Encounter - Delfina Fuentes [...] with MS on 09/25. documented in this encounterHolden Memorial HospitalEdgewood Services04-16-2024 Telephone encounter Note* Telephone Encounter - Delfina Fuentes PharmD - 09/23/2023 3:30 PM EDT ----- Message from Caridad Madera RN sent at 09/23/2023 2:55 PM EDT ----- Rica labs ordered 05/05/23 [id number] Telephone encounter Note* Telephone Encounter - Delfina [...] Pt has appt with MS on 09/25. [facility] [id number] Miscellaneous Notes* Telephone Encounter - Shirley Flores RN - 09/15/2023 3:34 AM EDT Please sign and route if you agree. Thank you EDGAR 06/06/22 - Next appt 09/26/23 (MUST keep this appt for further refills; last 3 cancelled) ABN Lipids 04/07/23 documented in this encounterKettering Health Miamisburg04-08-2024 Telephone encounter Note* Telephone Encounter - Shirley Flores RN - 09/15/2023 3:34 AM EDT Please sign and route if you agree. Thank you EDGAR 06/06/22 - Next appt 09/26/23 (MUST keep this appt for further refills; last 3 cancelled) ABN Lipids 04/07/23 [facility] [id number] Miscellaneous Notes* Telephone Encounter - Pallavi Dewitt - 08/01/2023 3:12 PM EST Called patient to remind them to bring their most current copy of their medication list with them to their appt. Patient verbalizes understanding. documented in this encounterAccess Hospital Dayton Rippld [id number] Telephone encounter Note* Telephone Encounter - Pallavi Dewitt - 08/01/2023 3:12 PM EST Called patient to remind them to bring their most current copy of their medication list with them to their appt. Patient verbalizes understanding. [email or web address] History of Present illness Narrative* Fiona Winn, RECORDS MANAGEMENT TECHNICIAN - 07/14/2023 8:30 AM ESTAssociated Order(s): L Inj/Asp: R subacromial bursa Post-Procedure Diagnose(s): Impingement of right shoulder Subjective Patient ID: Carly Cesar is a 53 y.o. female. Rt shoulder She is working at [employer], she started this in 2023. Pain x [...] 2-3 weeks s/p injection documented in this encounterCox [id number] NoteIcSt. Elizabeth Hospital01-09-2024 Miscellaneous Notes* Telephone Encounter - Shirley Flores RN - 06/17/2023 2:17 AM EST Please sign and route. Thank you Pt needs annual appointment please. Letter sent. EDGAR 06/06/22 ABN Lipids 04/07/23 documented in this encounterKettering Health Miamisburg01-09-2024 Telephone encounter Note* Telephone Encounter - Shirley Flores RN - 06/17/2023 2:17 AM EST Please sign and route. Thank you Pt needs annual appointment please. Letter sent. EDGAR 06/06/22 ABN Lipids 04/07/23 [facility]12-28-2023 Note06/05/23 Injection was helpful, pain has returned [...] Zilretta injection Mobic Follow up once injection approved.[facility]12-13-2023 Evaluation note* Encounter Date Diagnosis Assessment Notes Treatment Notes Treatment Clinical Notes May, Obesity, Class II, BMI 35-39.9 ( ICD-10 - E66.01) Consultation date 01-02-2023, weight (pounds): 211.7 Follow-up date 02-03-2023, weight (pounds): 212.5 Follow-up date 03-19-2023, weight (pounds): 207.6 Follow-up date 05-21-23, weight (pounds): 208 Plan is to take a weight centric approach to patient care in the treatment of obesity and patient'sweight related comorbidities.-Discussed the impact of obesity and excess adiposity on overall health and increased risk of associated health conditions-Discussed treatment options including lifestyleinterventions and use of medications as an adjunct to amplify adherence to healthy behavior change-Discussed benefits, risks and side effects of medication. After informed discussion, patient would like to proceedOrders:-Insurance requires 6 months of lifestyle weight management prior to medicationapproval, corresponding to date of 07-05-2023 -Patient trialed phentermine several years ago but experienced tachycardia. Patient is not a great candidate for phentermine or Qsymia -Handed paperwork on Zepbound-A1c November 2022, 5.6%-Follow up in clinic in 8 weeksThis note was created with voice recognition software. Please excuse errors in logistics team lead. May,ietary surveillance and counseling (ICD-10 - Z71.3)Discussed in detail high-protein, high-fiber, low-fat nutrition plan favoring calorie deficit and lean tissue mass preservation.-Lean protein sources at each meal supplemented with nutrient rich, lowcalorie density carbohydrates-Focus on consuming calories earlier in [...] low in carbohydrate and low in fat May,Exercise counseling (ICD-10 - Z71.89)Absolute HGS at time of consultation (pounds): 51.8 Absolute HGS at time of follow-up (pounds): 50 Discussed in detail exercise interventions to promote lean tissue mass preservation during calorie restriction.-In addition to regularly scheduled endurance and resistance exercise, perform bouts of resistance exercise prior to meals using body weight, resistance bands or dumbbells/weights-Following meals, consider aerobic exercise, such as brisk walking, to improve blood sugars and to mitigate hyperinsulinemia -Working with exercise physiology May,yslipidemia (ICD-10 - E78.5)Lipid panel November 2022 showing triglycerides 209 On Crestor 20 mg daily Following with cardiology May,Essential hypertension (ICD-10 - I10)CLARI treated with CPAP May,Metabolic syndrome (ICD-10 - E88.81)Insulin resistant May,ERD (gastroesophageal reflux disease) (ICD-10 - K21.9) May,Osteoarthritis (ICD-10 - M19.90)Knee pain is limiting physical activity May,Other30 minutes was spent reviewing patient specific healthcare information, interviewing, counseling, and communicating with the patient, and documenting clinical information. [employer] Other [id number] Evaluation note* Encounter Date Diagnosis Assessment Notes Treatment Notes Treatment Clinical Notes Mar, Obesity, Class II, BMI 35-39.9 ( ICD-10 - E66.01) Consultation date 01-02-2023, weight (pounds): 211.7 Follow-up date 02-03-2023, weight (pounds): 212.5 Follow-up date 03-19-2023, weight (pounds): 207.6 Plan is to take a weight centric approach to patient care in the treatment of obesity and patient'sweight related comorbidities.-Discussed the impact of obesity and excess adiposity on overall health and increased risk of associated health conditions-Discussed treatment options including lifestyleinterventions and use of medications as an adjunct to amplify adherence to healthy behavior change-Discussed benefits, risks and side effects of medication. After informed discussion, patient would like to proceedOrders:-Insurance requires 6 months of lifestyle weight management prior to medicationapproval, corresponding to date of 07-05-2023 -Patient trialed phentermine several years ago but experienced tachycardia. Patient is not a great candidate for phentermine or Qsymia -Look into premade protein drink for sugar cravings -Patient increasing frequency of gym workouts-A1c November 2022, 5.6%-Follow up in clinic in 8 weeksThis note was created with voice recognition software. Please excuse errors in logistics team lead. Mar,ietary surveillance and counseling (ICD-10 - Z71.3)Discussed in detail high-protein, high-fiber, low-fat nutrition plan favoring calorie deficit and lean tissue mass preservation.-Lean protein sources at each meal supplemented with nutrient rich, lowcalorie density carbohydrates-Focus on consuming calories earlier in [...] low in carbohydrate and low in fat Mar,Exercise counseling (ICD-10 - Z71.89)Absolute HGS at time of consultation (pounds): 51.8 Absolute HGS at time of follow-up (pounds): 61.2 Discussed in detail exercise interventions to promote lean tissue mass preservation during calorie restriction.-In addition to regularly scheduled endurance and resistance exercise, perform bouts of resistance exercise prior to meals using body weight, resistance bands or dumbbells/weights-Following meals, consider aerobic exercise, such as brisk walking, to improve blood sugars and to mitigate hyperinsulinemia -Working with exercise physiology Mar,yslipidemia (ICD-10 - E78.5)Lipid panel November 2022 showing triglycerides 209 On Crestor 20 mg daily Mar,Essential hypertension (ICD-10 - I10)CLARI treated with CPAP Mar,Metabolic syndrome (ICD-10 - E88.81)Insulin resistant Mar,ERD (gastroesophageal reflux disease) (ICD-10 - K21.9) Mar,Osteoarthritis (ICD-10 - M19.90)Knee pain is limiting physical activity Mar,Other35 minutes was spent reviewing patient specific healthcare information, interviewing, counseling, and communicating with the patient, and documenting clinical information. [employer] Other 09-22-2023 NotePatient ID: Carly Cesar is [...] to verify the correct patient, procedure, equipment, legal support analyst and site/side marked as required. Patient was prepped and draped in the usual sterile fashion.[facility]08-30-2023 Evaluation note* Encounter Date Diagnosis Assessment Notes Treatment Notes Treatment Clinical Notes Jan, Obesity, unspecified classification, unspecified obesity type, unspecified whether serious comorbidity present (ICD-10 - E66.9) Jan,OtherSummary of Visit: (A) group discussion about breakfast challenges and ideas (B) participants shared idea for breakfast and addressing common challenges Patient set the following goals: NOT REVIEWED [employer] Other 08-28-2023 Evaluation note* Encounter Date Diagnosis Assessment Notes Treatment Notes Treatment Clinical Notes Jan, Obesity, Class II, BMI 35-39.9 ( ICD-10 - E66.01) Consultation date 01-02-2023, weight (pounds): 211.7 Follow-up date 02-03-2023, weight (pounds): 212.5 Plan is to take a weight centric approach to patient care in the treatment of obesity and patient'sweight related comorbidities.-Discussed the impact of obesity and excess adiposity on overall health and increased risk of associated health conditions-Discussed treatment options including lifestyleinterventions and use of medications as an adjunct [...] with voice recognition software. Please excuse errors intranscription. Jan,ietary surveillance and counseling (ICD-10 - Z71.3)Discussed in detail high-protein, high-fiber, low-fat nutrition plan favoring calorie deficit and lean tissue mass preservation.-Lean protein sources at each meal supplemented with nutrient rich, lowcalorie density carbohydrates-Focus on consuming calories earlier in [...] low in carbohydrate and low in fat Jan,Exercise counseling (ICD-10 - Z71.89)Absolute HGS at time of consultation (pounds): 51.8 Absolute HGS at time of follow-up (pounds): 52.4 Discussed in detail exercise interventions to promote lean tissue mass preservation during calorie restriction.-In addition to regularly scheduled endurance and resistance exercise, perform bouts of resistance exercise prior to meals using body weight, resistance bands or dumbbells/weights-Following meals, consider aerobic exercise, such as brisk walking, to improve blood sugars and to mitigate hyperinsulinemia Jan,yslipidemia (ICD-10 - E78.5) Jan,Essential hypertension (ICD-10 - I10) Jan,Metabolic syndrome (ICD-10 - E88.81) Jan,ERD (gastroesophageal reflux disease) (ICD-10 - K21.9) Jan,Osteoarthritis (ICD-10 - M19.90)Knee pain is limiting physical activity Jan,Other31 minutes was spent reviewing patient specific healthcare information, interviewing, counseling, and communicating with the patient, and documenting clinical information. [employer] Other 08-25-2023 Note01/31/23 Here today in follow [...] patient. Obtain approval for right knee [facility]* Encounter Date Diagnosis Assessment Notes Treatment Notes Treatment Clinical Notes Dec, Obesity, unspecified classification, unspecified obesity type, unspecified whether serious comorbidity present (ICD-10 - E66.9) Dec,MI 39.0-39.9,adult (ICD-10 - Z68.39) Dec,OtherSummary of Visit: (A) Presentation of Plate Method discussed (B) Sample meal ideas reviewed (C) exercise recommendations reviewed Patient set the following goals: - patient set personal goal using given handout. [employer] Other 07-27-2023 Evaluation note* Encounter Date Diagnosis Assessment Notes Treatment Notes Treatment Clinical Notes Dec, Obesity, Class II, BMI 35-39.9 ( ICD-10 - E66.01) Consultation date 01-02-2023, weight (pounds): 211.7Plan is to take a weight centric approach to patient care in the treatment of obesity and patient's weight related comorbidities.-Discussed the impact of obesity and excess adiposity on overall health and increased risk of associated health conditions- Discussed treatment options including lifestyle interventions and use of medications as an adjunct to amplify adherence to healthy behavior change- Discussed benefits, risks and side effects of medication. After informed discussion, patient would like to proceedOrders:-Initiate Wegovy 0.25 mg once weekly and titrate up as tolerated -Patient trialed phentermine several years ago but experienced tachycardia -If Wegovy is not covered, consider Contrave and discontinue Wellbutrin-Recent A1c November 2022, 5.6%-Follow up in clinic in 4 weeksThis note was created with voice recognition software. Please excuse errors in logistics team lead. Dec,ietary surveillance and counseling (ICD-10 - Z71.3)Discussed in detail high-protein, high-fiber, low-fat nutrition plan favoring calorie deficit and lean tissue mass preservation.-Lean protein sources at each meal supplemented with nutrient rich, lowcalorie density carbohydrates-Focus on consuming calories earlier in [...] low in carbohydrate and low in fat Dec,Exercise counseling (ICD-10 - Z71.89)Absolute HGS at time of consultation (pounds): 51.8Discussed in detail exercise interventions to promote lean tissue mass preservation during calorie restriction.-In addition to regularly scheduled endurance and resistance exercise, perform bouts of resistance exercise prior to meals using body weight, resistance bands or dumbbells/weights-Following meals, consider aerobic exercise, such as brisk walking, to improve blood sugars and to mitigate hyperinsulinemia Dec,yslipidemia (ICD-10 - E78.5) Dec,Essential hypertension (ICD-10 - I10) Dec,Metabolic syndrome (ICD-10 - E88.81) Dec,ERD (gastroesophageal reflux disease) (ICD-10 - K21.9) [employer] Other 01-12-2023 NotePROCEDURE: XR KNEE RT 4V or > HISTORY: Osteoarthritis ; right knee pain COMPARISON: XR knee right 02/12/2022 FINDINGS: BONES:No fracture, acute abnormality, or significant arthropathy. SOFT TISSUES:No visible soft tissue swelling. EFFUSION:None visible. OTHER: Negative. IMPRESSION: 1. No acute bone abnormality or significant degenerative changes. Electronically authenticated by: BETH ROACH Date: 2022-06-20 08:14[facility]09-06-2022 NotePROCEDURE: XR KNEE RT 4V or > COMPARISON: None. HISTORY: Osteoarthritis FINDINGS: BONES:No fracture, acute abnormality, or significant arthropathy. SOFT TISSUES:Negative. No visible soft tissue swelling. EFFUSION:None visible. OTHER: Negative. IMPRESSION: No acute disease. Electronically authenticated by: JADA PRIETO Date: 2022-02-12 19:52[facility]07-09-2022 Evaluation note* Encounter Date Diagnosis Assessment Notes Treatment Notes Treatment Clinical Notes Dec, Toe pain, right (ICD-10 - M79.67 4) Dec,prain of fourth toe of right foot, initial encounter (ICD-10 - S93.504A)Drink plenty fluids, get plenty of rest. Baldemar tape your toe for comfort and compression. Take ibuprofen as needed for pain and swelling. Ice and elevate your foot 2-3 times a day. Follow-up with your family physician if no improvement in 5 to 7 days Dec,therBuddying tape material was printed, Toe sprain material was printed [employer] Other 03-04-2022 Evaluation note* Encounter Date Diagnosis Assessment Notes Treatment Notes Treatment Clinical Notes Aug, Right wrist pain (ICD-10 - M25.5 31) discussed c pt that mass is suspicous [...] shoulder surgery that could have been aggrevated withexercise as well. advised pt to f/u if that worsens in the next week or so. seek immediate evaluation via ER if warning symptoms of loss of motor function or sensation, coolness or palor of limb. Aug,therDue to infection control protocols for COVID-19 virus, direct physical contact with patient was limited to only the absolute essential needed assessments. [employer] Other Chief complaint+Reason for visit Narrative* Chief Complaint Exercise Reason for Visit Dietary surveillance and counseling Exercise counseling Obesity, Class II, BMI 35-39.9 Dietary surveillance and counseling Exercise counseling Obesity, Class II, BMI 35-39.9 [facility] Work Phone: Evaluation + Plan note Future Appointments Appointment Date:06/30/2024 09:30:00 AM Scheduled Provider: Location:[facility] Appointment Type:Surgery FT Diagnostic Tests Pending * Urine Culture 06/17/24 [facility] evaluation noteNo InformationNouniversity health [facility] [employer] Other Evbjdation noteNo assessment information available [facility] Work Phone: Evaluation note* Diagnosis Right shoulder pain, unspecified chronicity- Primary Impingement of right shoulder documented [facility] this encounter [facility]* Diagnosis Onset Date Resolution Status Dietary surveillance and counseling acuteExercise counselingacuteObesity, Class II, BMI 35-39.9acuteDietary surveillance and counselingacuteExercise counselingacuteObesity, Class II, [facility]* Diagnosis Onset Date Resolution Status Dietary surveillance and counseling acuteExercise counselingacuteObesity, Class II, BMI 35-39.9acuteDietary surveillance and counselingacuteExercise counselingacuteObesity, Class II, BMI 35-39.9acuteAcute cystitis with hematurianoneactive [facility] Work Phone: evaluation note* Diagnosis Onset Date Resolution Status Dietary surveillance and counseling acuteExercise counselingacuteObesity, Class II, BMI 35-39.9acuteAcute cystitis with hematurianoneactive [facility] Work Phone: Evaluation note* Diagnosis Onset Date Resolution Status Dietary surveillance and counseling acuteExercise counselingacuteObesity, Class II, BMI 35-39.9acuteAcute cystitis with hematurianoneactiveDietary surveillance and counselingacuteExercise counselingacuteObesity, Class II, BMI 35-39.9[facility] Work [facility]* Diagnosis Onset Date Resolution Status Dietary surveillance and counseling acuteExercise counselingacuteObesity, Class II, BMI 35-39.9acuteAcute cystitis with hematurianoneactiveDietary surveillance and counselingacuteExercise counselingacuteObesity, Class II, BMI 35-39.9acuteOsteoarthritis of right knee acuteRight knee meniscal tearacute [facility] Work Phone: Evaluation note* Diagnosis Onset Date Resolution Status Dietary surveillance and counseling acuteExercise counselingacuteObesity, Class II, BMI 35-39.9acuteAcute cystitis with hematurianoneactiveDietary surveillance and counselingacuteExercise counselingacuteObesity, Class II, BMI 35-39.9acuteOsteoarthritis of right knee acuteRight knee meniscal tearacuteEncounter for removal of suturesacute Osteoarthritis of right kneeacuteRight knee meniscal tearacuteStatus post arthroscopy of right kneeacute [facility] Work Phone: Evaluation note* Diagnosis Onset Date Resolution Status Acute cystitis with hematuria noneactiveDietary surveillance and counselingacuteExercise counselingacute Obesity, Class II, BMI 35-39.9acuteOsteoarthritis of right kneeacuteRight knee meniscal tearacuteEncounter for removal of suturesacuteOsteoarthritis of right kneeacuteRight knee meniscal tearacuteStatus post arthroscopy of right kneeacute Encounter for removal of suturesacuteOsteoarthritis of right kneeacuteRight knee meniscal tearacuteStatus post arthroscopy of right kneeacute [facility] Work Phone: Evaluation note* Diagnosis Right [...] and unspecified hyperlipidemia [facility] Diagnosis Dyslipidemia- Primary Other and unspecified hyperlipidemia [facility] Diagnosis High triglycerides- Primary Unspecified disorder of lipoid metabolism Other hyperlipidemia Medication monitoring encounter Encounter for therapeutic drug monitoring [facility] Diagnosis Well woman exam with routine gynecological exam- Primary Routine gynecological examination Screening mammogram, encounter for [facility] Diagnosis Other hyperlipidemia- Primary [facility] Diagnosis Other hyperlipidemia High triglycerides Unspecified disorder of lipoid metabolism [facility]* Diagnosis S/P total knee arthroplasty, right- Primary documented in this encounter [facility]Evaluation [facility]* Diagnosis Family history of heart disease- Primary Primary hypertension Unspecified essential hypertension Dyslipidemia Other and unspecified hyperlipidemia Overweight (BMI 25.0-29.9) Overweight [facility] Diagnosis Other hyperlipidemia High triglycerides Unspecified disorder of lipoid metabolism [facility] Diagnosis S/P total knee arthroplasty, right- Primary [facility]* Diagnosis Well woman exam with routine gynecological exam- Primary Routine gynecological examination Screening mammogram, encounter for [facility] Diagnosis Iliotibial band syndrome of right side- Primary [facility]* Diagnosis Iliotibial band syndrome of right side- Primary documented [facility]* Diagnosis Iliotibial band syndrome of right side- Primary documented in [facility]* Diagnosis Iliotibial band syndrome of right side- Primary documented in [facility]* Diagnosis Iliotibial band syndrome of right side- Primary documented in [facility]* Diagnosis Iliotibial band syndrome of right side- Primary documented [facility]* Diagnosis Iliotibial band syndrome of right side- Primary documented in this encounter [facility] HealthcareHistory general Narrative - Reported* Type Description Date Medical History Hypercholesteremia Medical HistoryAnxiety and depressionSurgical HistoryLEEPSurgical Historyear reattached and dent removal on side of face from injurySurgical Historyright shoulder bone spurHospitalization HistoryNo Hospitalization history information [place] [employer] Other [facility] general Narrative - Reported* Type Description Date Medical History Hypercholesteremia Medical HistoryAnxiety and depressionSurgical HistoryLEEPSurgical Historyear reattached and dent removal on side of face from injurySurgical Historyright shoulder bone spurHospitalization Historysee above [employer] Other [place] general Narrative - Reported* Type Description Date Medical History Hypercholesteremia Medical HistoryAnxiety and depressionMedical HistoryHypertensionSurgical History LEEPSurgical Historyear reattached and dent removal on side of face from injury Surgical Historyright shoulder bone spurSurgical HistoryWisdom teeth extraction Hospitalization Historysee above [employer] Other Hospital course Narrative No data available for this section [facility] Hospital Discharge instructions No data available for this section [facility] InstructionsNot on filedocumented in this encounter [facility] [...] note No data available for this section [facility] Reason for referral (narrative)No reason for referral information availableMount St[facility] Work Phone: Reason for visit Narrative* Consultation (Routine) - ClosedSpecialtyDiagnoses / ProceduresReferred By ContactReferred To Contact Physical Therapy Diagnoses Primary osteoarthritis of right knee Procedures [place] OFFICE/OUTPATIENT NEW HIGH MDM 60 MINUTES Clint Boogie, DO [address] [place] [address] Phone: tel: fax: Jada Cunha, PT Referral IDStatusReasonStart DateExpiration DateVisits RequestedVisits [id number] Specialty Services Required / [facility] HealthcareReason for visit Narrative* Consultation (Routine) - Authorized SpecialtyDiagnoses / ProceduresReferred By ContactReferred To ContactPhysical Therapy Diagnoses Iliotibial band syndrome of right side Procedures GA OFFICE/OUTPATIENT NEW HIGH MDM 60 MINUTES Clint Boogie, DO [address] [place] [address] Phone: tel: fax: Jada Cunha, PT Referral IDStatusReasonStart DateExpiration DateVisits RequestedVisits [id number] Consult and Treat [facility] HealthcareReason for visit Narrative* Consultation (Routine) - Authorized SpecialtyDiagnoses / ProceduresReferred By ContactReferred To ContactPhysical Therapy Diagnoses Iliotibial band syndrome of right side Procedures [place] OFFICE/OUTPATIENT NEW HIGH MDM 60 MINUTES Clint Boogie, DO [address] [place] [address] Phone: tel: fax: Jada Cunha, PT Referral IDStatusReasonStart DateExpiration DateVisits RequestedVisits [id number] Consult and Treat [facility] Summary Purpose Family History Relationship Condition Age at Onset Recorded Date/T diogo brother Unknown Family history of mental disorderUnknownfatherHeart diseaseUnknownDeceased UnknownNot SpecifiedHeart diseaseUnknownDiabetes mellitusUnknownHypertension UnknownsisterFamily history of mental disorderUnknownHistory of strokeUnknown Heart diseaseUnknown Relationship Condition Age at Onset Recorded Date/T diogo brother Unknown Family history of mental disorderUnknownfatherHeart diseaseUnknownDeceased UnknownNot SpecifiedDiabetes mellitusUnknownHeart diseaseUnknownHypertension UnknownsisterHeart diseaseUnknownHistory of strokeUnknownbrotherMuscular dystrophyUnknown Relationship Condition Age at Onset Recorded Date/T diogo brother Unknown Family history of mental disorderUnknownfatherHeart diseaseUnknownDeceased UnknownmotherDiabetes mellitusUnknownHeart diseaseUnknownHypertensionUnknown sisterHeart diseaseUnknownHistory of strokeUnknownbrotherMuscular dystrophy Unknown Advance Directives TypeDate RecordedPatient RepresentativeExplanationAdvance Directives and Living WillPower of French Drawer Advance Directive Response Recorded Date/ Time Advance Directives No October 11, 2019 6:12am Advance Directive Response Recorded Date/ Time Advance Directives No September 04, 024 1:28pm Advance Directive Response Recorded Date/ Time Advance Directives No September 04 024 12:28pm Assessments Diagnosis Screening mammogram, encounter for Well female exam with routine gynecological exam Routine gynecological examination Chief Complaint and Reason for Visit Chief Complaint exercise Obesity Chief Complaint Exercise possible uti- burning DysuriaReason for VisitDietary surveillance and counseling Exercise counseling Obesity, Class II, BMI 35-39.9 Dietary surveillance and counseling Exercise counseling Obesity, Class II, BMI 35-39.9 Acute cystitis with hematuria Chief Complaint Exercise possible uti- burning R30.0Reason for VisitDietary surveillance and counseling Exercise counseling Obesity, Class II, BMI 35-39.9 Acute cystitis with hematuria Chief Complaint Exercise possible uti- burning R30.0Reason for VisitDietary surveillance and counseling Exercise counseling Obesity, Class II, BMI 35-39.9 Acute cystitis with hematuria Dietary surveillance and counseling Exercise counseling Obesity, Class II, BMI 35-39.9 Chief Complaint Exercise possible uti- burning R30.0 M25.561 - Pain in right knee NEW RT KNEE PAIN WXReason for VisitDietary surveillance and counseling Exercise counseling Obesity, Class II, BMI 35-39.9 Acute cystitis with hematuria Dietary surveillance and counseling Exercise counseling Obesity, Class II, BMI 35-39.9 Osteoarthritis of right knee Right knee meniscal tear Chief Complaint Exercise possible uti- burning R30.0 M25.561 - Pain in right knee NEW RT KNEE PAIN WX Knee PainReason for VisitDietary surveillance and counseling Exercise counseling Obesity, Class II, BMI 35-39.9 Acute cystitis with hematuria Dietary surveillance and counseling Exercise counseling Obesity, Class II, BMI 35-39.9 Osteoarthritis of right knee Right knee meniscal tear Chief Complaint Exercise possible uti- burning R30.0 M25.561 - Pain in right knee NEW RT KNEE PAIN WX Knee Pain Knee Pain Knee PainReason for VisitDietary surveillance and counseling Exercise counseling Obesity, Class II, BMI 35-39.9 Acute cystitis with hematuria Dietary surveillance and counseling Exercise counseling Obesity, Class II, BMI 35-39.9 Osteoarthritis of right knee Right knee meniscal tear Chief Complaint possible uti- burnin g R30.0 M25.561 - Pain in right knee NEW RT KNEE PAIN WX Knee Pain Knee Pain Knee Pain 10-14 days post opReason for VisitDietary surveillance and counseling Exercise counseling Obesity, Class [...] Knee Pain 10-14 days post op 4 WEEKSReason for VisitAcute cystitis with hematuria Dietary surveillance and counseling [...] Pain 10-14 days post op 4 WEEKS ptReason for VisitDietary surveillance and counseling Exercise counseling Obesity, Class [...] postprocedural states increased rt knee pain, s/p meniscectomyReason for VisitDietary surveillance and counseling Exercise counseling Obesity, Class [...] rt knee pain, s/p meniscectomy DUROLANE RT KNEEReason for VisitDietary surveillance and counseling Exercise counseling Obesity, Class [...] pain, s/p meniscectomy DUROLANE RT KNEE 8 WEEKSReason for VisitEncounter for removal of sutures Osteoarthritis of right [...] 3 month January 18, 2025 8: 21am Chief Complaint Admit Date WM initial November 22, 2024 8:09 am Z13.9 E78.2 I10 November 25, 2024 9:38 am E78.2, I10, E78.00 November 25, 2024 9:[address] WM f/u December 30, 2024 7:51 am 3 month January 18, 2025 8: 21am RD WM f/u February 04, 2025 9: 30am Reason for Visit Admit Date Hypercholesteremia January 18, 2025 8: 21am Hypertension January 18, 2025 8: 21am Osteoarthritis of right knee January 8:21am Overweight (BMI 25.0-29.9) January 18, 2025 8:21am Chief Complaint Admit Date 3 month January 18, 2025 8: 21am RD WM f/u February 04, 2025 9: 30am RD WM f/u April 18, 2025 10:47am Chief Complaint Admit Date RD WM f/u February 04, 2025 9: 30am RD WM f/u April 18, 2025 10:47am Reason for Referral SpecialtyDiagnoses / ProceduresReferred By ContactReferred To ContactOrthopaedic Surgery Diagnoses Impingement of right shoulder Procedures L Inj/Asp: R subacromial bursa Fiona Winn NP [address] [place] [address] Referral IDStatusReasonStart DateExpiration DateVisits RequestedVisits [id number] Review/ Additional Source Comments INFORMATION SOURCE (unrecogn ized section and content) DATE CREATED AUTHOR 07/28/2019 [facility] DATE CREATED AUTHOR AUTHOR'S ORGANIZ ATION 10/03/2022 [facility] DATE CREATED AUTHOR AUTHOR'S ORGANIZ ATION 10/29/2023 [facility] DATE CREATED AUTHOR AUTHOR'S ORGANIZ ATION 06/22/2024 [facility] DATE CREATED AUTHOR AUTHOR'S ORGANIZ ATION 07/01/2024 [facility] DATE CREATED AUTHOR AUTHOR'S ORGANIZ ATION 07/06/2024 [facility] DATE CREATED AUTHOR AUTHOR'S ORGANIZ ATION 12/20/2024 [facility] DATE CREATED AUTHOR AUTHOR'S ORGANIZ ATION 02/17/2025 [facility] DATE CREATED AUTHOR AUTHOR'S ORGANIZ ATION 02/24/2025 [facility] DATE CREATED AUTHOR AUTHOR'S ORGANIZ ATION 04/21/2025 [facility] EPIC REASON FOR VISIT (unrecogniz ed section and content) ReasonCommentsPainReasonCommentsPainReasonCommentsFollow-upH&P Rt [facility] 06/30/24ReasonOnset NytpFhxdwygaXRSFRNOAC19/04/2025ReasonCommentsPost-op VisitR TKA 06/30/24ReasonCommentsFollow-upEST PT F/U 1 YR LABS IN MAY SCHED W/ PTReason CommentsMed RefillReasonOnset NxzwMecfoepfJwhbqgf02/23/2024ReasonComments Gynecologic ExamReasonOnset DateCommentsMed [id number] Date Commentswt loss, dizzy, bp med hold4ReasonCommentsFollow-up1 year HypertensionShortness of Breath Care Teams (unrecognized sec tion and content) Team Status: Active Member Role Status Yarelis Muñoz MD Family Provider Active Tomas Urias Care ProviderActive Team Status: Inactive Member Role Status Yarelis Muñoz MD Primary Care Provider, Family Provi jacinto Active Sandra Jules MDAttdann ProviderActive Team Status: Active Member Role Status Yarelis Muñoz MD Primary Care Provider, Family Provi jacinto Active Darell Arreola ProviderActiveTeam MemberRelationshipSpecialtyStart DateEnd Date Cristian Muñoz MD [address] [place] [address] PCP General07/13/23Team MemberRelationshipSpecialtyStart DateEnd Date Cristian Muñoz MD [address] [place] [address] PCP General07/13/23 Team Status: Inactive Member Role Status Yarelis Muñoz MD Primary Care Provider Active Start: July 31, 2023 End: July 31Darell Holley ProviderActiveStart: July 31, 2023 End: July 31, 2023 Team Status: Inactive Member Role Status Yarelis Muñoz MD Primary Care Provider Active Start: September 08, 2023 End: October 06Darell Holley ProviderActiveStart: September 08, 2023 End: October 07, 2023 Team Status: Inactive Member Role Status Yarelis Muñoz MD Primary Care Provider Active Start: September 29, 2023 End: September 28usten M Baeza , DOAttending ProviderActiveStart: September 29, 2023 End: September 29, 2023 Team Status: Active Member Role Status Yarelis Muñoz MD Family Provider Active Team Status: Inactive Member Role Status Yarelis Muñoz MD Primary Care Provider Active Start: October 18, 2023 End: October 17Luca Tavarez ProviderActiveStart: October 18, 2023 End: October 18, 2023 Team Status: Inactive Member Role Status Yarelis Florian APRN Attending Provider Active Start: October 18, 2023 End: October 18, 2023 Team Status: Active Member Role Status Yarelis Muñoz MD Family Provider Active PHYSICIAN NO FAMILYPrimary Care ProviderActive Team Status: Inactive Member Role Status Yarelis Florian APRN Attending Provider Active Start: October 18, 2023 End: October 174PHYSICIAN NO FAMILYPrimary Care ProviderActiveStart: October 18, 2023 End: October 18, 2023 Team Status: Inactive Member Role Status Yarelis Baeza DO Attending Provider Active St art: November 24, 2023 End: November 234PHYSICIAN NO FAMILYPrimary Care ProviderActiveStart: November 24, 2023 End: November 24, 2023 Team Status: Active Member Role Status Dates PHYSICIAN NO FAMILY Primary Care Provider Active Start: November 25, 2023 Mookie Ospina DOAttending ProviderActiveStart: November 25, 2023 Team Status: Inactive Member Role Status Dates PHYSICIAN NO FAMILY Primary Care Provider Active Start: November 25, 2023 End: November 25, 2023Mookie Ospina DOAttending ProviderActiveStart: November 25, 2023 End: November 25, 2023 Team Status: Inactive Member Role Status Dates Mookie Ospina DO Attending Provider Active St art: December 01, 2023 End: November 30ouJAMES Isaacsrihedyy Care ProviderActiveStart: December 01, 2023 End: December 01, 2023 Team Status: Inactive Member Role Status Dates Mookie Ospina DO Attending Provider Active St art: December 05, 2023 End: December 04ouJAMES Isaacsrimary Care ProviderActiveStart: December 05, 2023 End: December 05, 2023 Team Status: Active Member Role Status Yarelis Ospina DO Attending Provider, Other Provider Active Start: December 05, 2023 Cristian Muñoz Juliotiffany Care ProviderActiveStart: December 05, 2023 Team Status: Inactive Member Role Status Yarelis Ospina DO Attending Provider Active St art: December 18, 2023 End: December 17kelechi Muñoz Tomas Care ProviderActiveStart: December 18, 2023 End: December 18, 2023 [...] Start: January 15, 2024 End: January 15, 2024Darell Ko ProviderActiveStart: January 15, 2024 End: January 15, 2024 Team Status: Inactive Member Role Status Yarelis Jules MD Attending Provider Active Start: January 19, 2024 End: January 18JAMES Pereiragarett Care ProviderActiveStart: January 19, 2024 End: January 19, 2024 Team Status: Active Member Role Status Yarelis Muñoz MD Primary Care Provider Active Start: February 05, 2024 Darell Ko ProviderActiveStart: February 05, 2024 Team Status: Inactive Member Role Status Yarelis Muñoz MD Primary Care Provider Active Start: February 05, 2024 End: February 05, 2024Darell Ko ProviderActiveStart: February 05, 2024 End: February 05, 2024 Team Status: Inactive Member Role Status Yarelis Muñoz MD Primary Care Provider Active Start: February 19, 2024 End: February 19, 2024Darell Ko ProviderActiveStart: February 19, 2024 End: February 19, 2024 Team Status: Inactive Member Role Status Dates Cristian Muñoz MD Primary Care Provider Active Start: March 08, 2024 End: March 08, 2024Darell Ko ProviderActiveStart: March 08, 2024 End: March 08, 2024 Team Status: Inactive Member Role Status Dates Cristian Muñoz MD Primary Care Provider Active Start: March 12, 2024 End: March 12jing Jules MDAttdann ProviderActiveStart: March 12, 2024 End: March 12, 2024Team MemberRelationshipSpecialtyStart DateEnd Date Cristian Muñoz MD [address] [facility] [place] [address] PCP - General07/13/23Team MemberRelationshipSpecialtyStart DateEnd Date Cristian Muñoz MD [address] [facility] [address] PCP - General07/13/23Team MemberRelationshipSpecialtyStart DateEnd Date Cristian Muñoz MD [address] [place] [address] PCP - General07/13/23Team MemberRelationshipSpecialtyStart DateEnd Date Cristian Muñoz MD [address] [facility] [address] PCP - General07/13/23Team MemberRelationshipSpecialtyStart DateEnd Date Cristian Muñoz MD [address] [facility] [address] PCP - General07/13/23Team MemberRelationshipSpecialtyStart DateEnd Date Cristian Muñoz MD [address] [place] [address] PCP - General07/13/23Team MemberRelationshipSpecialtyStart DateEnd Date Cristian Muñoz MD [address] [place] [address] PCP - GeneralFamily Medicine02/18/19Team MemberRelationshipSpecialtyStart DateEnd Date rCistian Muñoz MD [address] [place] [address] PCP - GeneralFamily Medicine02/18/19Team MemberRelationshipSpecialtyStart DateEnd Date Cristian Muñoz MD [address] [place] [address] PCP - GeneralFamily Medicine02/18/19Team MemberRelationshipSpecialtyStart DateEnd Date Cristian Muñoz MD [address] [place] [address] PCP - GeneralFamily Medicine02/18/19Team MemberRelationshipSpecialtyStart DateEnd Date Cristian Muñoz MD [address] [place] [address] PCP - GeneralFamily Medicine02/18/19Team MemberRelationshipSpecialtyStart DateEnd Date Cristian Muñoz MD [address] [place] [address] PCP - GeneralFamily Medicine02/18/19Team MemberRelationshipSpecialtyStart DateEnd Date [facility]Team MemberRelationshipSpecialtyStart DateEnd Date Cristian [facility]/19 Team Status: Inactive Member Role Status Yarelis Muñoz MD Primary Care Provider Active Start: August 03, 2024 End: August 03, 2024Sky Sims ProviderActiveStart: August 03, 2024 End: August 03, 2024Team MemberRelationshipSpecialtyStart DateEnd Date Cristian Muñoz MD [address] [place] [phone] PCP - General07/13/23Team MemberRelationshipSpecialtyStart DateEnd Date Cristian Muñoz MD PCP - [facility] Medicine02/18/19Team MemberRelationshipSpecialtyStart DateEnd Date Cristian Muñoz MD PCP - [facility] Medicine02/18/19Team MemberRelationshipSpecialtyStart DateEnd Date Cristian Muñoz MD PCP - General07/13/23 Team Status: Active Member Role Status Yarelis Muñoz MD Primary Care Provider Active Team Status: Inactive Member Role Status Yarelis Muñoz MD Primary Care Provider Active Start: October 26, 2024 End: October 26, 2024Sky Sims ProviderActiveStart: October 26, 2024 End: October 26, 2024 Team Status: Inactive Member Role Status Yarelis Muñoz MD Primary Care Provider Active Start: November 22, 2024 End: November 22ndrea Traut , RD LDAttending ProviderActiveStart: November 22, 2024 End: November 22, 2024 Team Status: Inactive Member Role Status Yarelis Muñoz MD Primary Care Provider Active Start: November 25, 2024 End: November 25, 2024Sandra Jules MDAttending ProviderActiveStart: November 25, 2024 End: November 25, 2024 Team Status: Inactive Member Role Status Yarelis Muñoz MD Primary Care Provider Active Start: December 30, 2024 End: December 30ndalice Claudio , RD LDAttending ProviderActiveStart: December 30, 2024 End: December 30, 2024Team MemberRelationshipSpecialtyStart DateEnd Date Cristian Muñoz MD [facility]02/18/19 Team Status: Inactive Member Role Status Yarelis Muñoz MD Primary Care Provider Active Start: January 18, 2025 End: January 18, 2025Sandra Jules MDAttdann ProviderActiveStart: January 18, 2025 End: January 18, 2025 Team Status: Active Member Role Status Yarelis Muñoz MD Primary Care Provider Active Start: December 07, 2024 Sky Urias ProviderActiveStart: December 07, 2024 Team Status: Inactive Member Role Status Yarelis Muñoz MD Primary Care Provider Active Start: February 04, 2025 End: February 04ndalice Claudio , RD LDAttending ProviderActiveStart: February 04, 2025 End: February 04, 2025Team MemberRelationshipSpecialtyStart DateEnd Date Cristian Muñoz MD PCP General07/13/23Team MemberRelationshipSpecialtyStart DateEnd Date Cristian Muñoz MD PCP General07/13/23Team MemberRelationshipSpecialtyStart DateEnd Date Cristian Muñoz MD PCP - [facility]07/13/23Team MemberRelationshipSpecialtyStart DateEnd Date Cristian Muñoz MD PCP - [facility]07/13/23Te MemberRelationshipSpecialtyStart DateEnd Date Cristian Muñoz MD PCP - [facility]07/13/23Team MemberRelationshipSpecialtyStart DateEnd Date Cristian Muñoz MD PCP [facility]07/13/23Te MemberRelationshipSpecialtyStart DateEnd Date Cristian Muñoz MD PCP - [facility]07/13/23Team MemberRelationshipSpecialtyStart DateEnd Date Cristian Muñoz MD PCP [facility]07/13/23Team MemberRelationshipSpecialtyStart DateEnd Date Cristian Muñoz MD PCP - [facility]07/13/23Team MemberRelationshipSpecialtyStart DateEnd Date Cristian Muñoz MD PCP - [facility]07/13/23Team MemberRelationshipSpecialtyStart DateEnd Date Cristian Muñoz MD PCP [facility]07/13/23 Team Status: Active Member Role/Relationship Status Yarelis Muñoz MD Primary Care Provider Active Team Status: Inactive Member Role/Relationship Status Yarelis Muñoz MD Primary Care Provider Active Start: January 18, 2025 End: January 18, 2025Sky Sims ProviderActiveStart: January 18, 2025 End: January 18, 2025 Team Status: Inactive Member Role/Relationship Status Yarelis Muñoz MD Primary Care Provider Active Start: February 04, 2025 End: February 04ndrea Traut , RD LDAttending ProviderActiveStart: February 04, 2025 End: February 04, 2025 Team Status: Inactive Member Role/Relationship Status Yarelis Muñoz MD Primary Care Provider Active Start: April 18, 2025 End: April 18rea Traut , RD LDAttending ProviderActiveStart: April 18, 2025 End: April 18, 2025 Team Status: Inactive Member Role/Relationship Status Yarelis Muñoz MD Primary Care Provider Active Start: February 04, 2025 End: February 04rea Traut , RD LDAttending ProviderActiveStart: February 04, 2025 End: February 04, 2025 Team Status: Inactive Member Role/Relationship Status Yarelis Muñoz MD Primary Care Provider Active Start: April 18, 2025 End: April 18rea Traut , RD LDAttending ProviderActiveStart: April 18, 2025 End: April 18, 2025 Team Status: Inactive Member Role/Relationship Status Yarelis Muñoz MD Primary Care Provider Active Start: April 19, 2025 End: April 19, 2025Sky Sims ProviderActiveStart: April 19, 2025 End: April 19, 2025Team MemberRelationshipSpecialtyStart DateEnd Date Cristian Muñoz MD PCP - General07/13/23 Goals (unrecognized section and content) Goals may [...] BE BASED ON THE PRIMARY CLINICAL RECORDS. [facility] alike [facility]. provides no warranty or guarantee of the accuracy or completeness of information in this document.
== END 2025-05-17 08:25 | disposition home or self-care (01) ==
LOC: MRI 08:24
PROVIDERS: PCP Family Medicine; Visit Provider Family Medicine
DX: M46.90 Unspecified inflammatory spondylopathy, site unspecified (principal); M50.322 Other cervical disc degeneration at C5-C6 level
CPT/HCPCS: 72141

== ENCOUNTER 2025-05-27 09:22 | Outpatient (OUT) | payer OTHER, SELFPAY ==
--- OUTSIDE RECORDS SUMMARY | 2024-06-10 06:15 | XMS_ITS ---
Author Organization [facility] [place] Address [address] [place] [address] Care Team Providers Care Making Machine Operator Name Role Phone Juan F Sal Primary Care Provider REASON FOR VISIT fall hurt tail bone Encounters Encounter Location Date Provider Diagnosis [facility] [address] [place] [address] 06/10/2024 Juan F Sal Plan Of Treatment No Information Progress Notes * Angela CESAR EDOB:[birth year] (55 yo F)Acc No.[id number]:06/10/2024 UNLOCKED PROGRESS NOTE Progress Note Patient: Angela HANSEN :?Alexis Sal (TTC), MDDOB:1970???Age: 54 Y???Sex:FemaleDate:06/10/2024Phone:[phone]:[address] [place], [id number] Subjective: * Chief Complaints: * 1 . Fall hurt tail bone. * Medical History: Objective: * Vitals: Assessment: Plan: * Treatment: * * Electronic signature of Juan F Sal MD, [id number] on 05/27/2025 at 09:26 AM EST Sign off status: PendingVisit Status:?CANC (Cancelled) * Provider: Leydi Sal MD (TTC) Date: 0 06/10/2024 Generated for Printing/Faxing/eTransmitting on:?05/27/2025 09:26 AM EST
--- OUTSIDE RECORDS SUMMARY | 2025-05-19 16:10 | XMS_ITS | Encounter Summary ---
Author Organization [facility] Address [address] [place] [address] Care Team Providers Care Professor Of Radiology Name Role Phone Alexis Sal MD Primary Care Provider [phone] Reason for Visit * ReasonCommentsIngrown Toenail Encounter Details DateTypeDepartmentCare Team (Latest Contact Info)Comryniusco72/11/2025 4:10 PM ESTOffice Visit [facility] [address] [facility] [address] [place] [address] Omar Anand, DPM [address] [facility] [address] [place] [address] Hav (hallux abducto valgus), left (Primary Dx); Onychocryptosis; Toe pain, right Social History Tobacco UseTypesPacks/DayYears UsedDateSmoking Tobacco: NeverSmokeless Tobacco: Never Tobacco Cessation:Counseling Given: Yes Alcohol UseStandard Drinks/WeekCommentsYes0 (1 standard drink = 0.6 oz pure alcohol)1-2 drinks monthly or less, coffee 2-3 cups per dayComments UnknownSex and Gender InformationValueDate RecordedSex Assigned at BirthFemale 07/13/2023 8:41 AM ESTLegal LuoMvhcjj22/15/2023 6:45 PM EDTGender IdentityFemale 07/13/2023 8:41 AM ESTSexual OrientationNot on filedocumented as of this encounter Last Filed Vital Signs Vital SignReadingTime TakenCommentsBlood Pressure--Pulse--Temperature-- Respiratory Qmld910707/20/2024 3:46 PM ESTOxygen Saturation--Inhaled Oxygen Concentration--Yjudzz00.7 kg (158 lb)05/19/2025 3:46 PM BQVUbtzkf717.9 cm (5' 1 )05/19/2025 3:46 PM ESTBody Mass Index29.8505/19/2025 3:46 PM ESTdocumented in this encounter Progress Notes * Omar Anand, DPM - 05/19/2025 4:10 PM EST Patient: Codi Cesar : 1970 PCP: Alexis Sal MD SUBJECTIVE This is a 55 y.o. female that presents today for a chief complaint of ingrowing nail to the right great toenail but denies any drainage from the area. States some pain and achiness as the right hallux toe does abut the right 2nd toe. She has tried cruk-lnx-fzbxftb toe spacers with some improvement presents today for partial permanent nail avulsions to the right hallux She was to take oral antibiotics for prophylaxis due to knee replacement Patient also has complaints of the left foot bunion type deformity that is been present for the past year and worsening in nature. She has tried wider shoes with some improvement as well as toe spacer. Allergies: Allergies[1] Past Medical History: Medical History[2] Medications: Current Medications[3] Social History: Social History Socioeconomic History Marital status: Spouse name: Not on file Number of children: Not on file Years of education: Not on file Highest education level: Not on file Occupational History Not on file Tobacco Use Smoking status: Never Smokeless tobacco: Never Vaping Use Vaping status: Never Used Substance and Sexual Activity Alcohol use: Yes Comment: 1-2 drinks monthly or less, coffee 2-3 cups per day Drug use: Never Sexual activity: Yes Partners: Male control/protection: None Other Topics Concern Not on file Social History Narrative Not on file Social Drivers of Health Financial Resource Strain: Not on file Food Insecurity: No Food Insecurity (09/27/2024) Received from [facility] Hunger Screening Within the past 12 months we worried whether our food would run out before we got money to buy more.: Never True Within the past 12 months the food we bought just didn't last and we didn't have money to get more.: Never True Transportation Needs: Not on file Physical Activity: Not on file Stress: Not on file Social Connections: Not on file Intimate Partner Violence: Not At Risk (06/05/2023) Received from [facility] Humiliation, Afraid, Rape, and Kick questionnaire Within the last year, have you been afraid of your partner or ex-partner?: No Within the last year, have you been humiliated or emotionally abused in other ways by your partner or ex-partner?: No Within the last year, have you been kicked, hit, slapped, or otherwise physically hurt by your partner or ex-partner?: No Within the last year, have you been raped or forced to have any kind of sexual activity by your partner or ex-partner?: No Housing Stability: Not on file ROS: Gastrointestinal: denies abdominal pain, ulcers, or changes in appetite or bowel habits Musculoskeletal: Positive generalized arthritis to joints and denies loss of strength. Positive history of right total knee replacement Cardiovascular: denies CP, palpitations, irregular rhythms OBJECTIVE LE EXAM: DERM: Positive hair growth to b/l feet with good skin turgor noted. Negative openings in skin. Rubor to dorsal medial eminence of the left 1st metatarsal Slight erythema to the lateral aspect of the right hallux VASC: Palpable pedal pulsed b/l with warm to cool tibia to toes b/l NEURO: Gross sensation intact digits 1-10 and b/l feet ORTHO: +5/5 DF/PF/IN/EV right, +5/5 DF/PF/IN/EV left. 20 degrees inversion and 10 degrees eversion STJ b/l. Ankle ROM less than 10 degrees b/l. Positive pain on palpation to dorsal medial eminence of the left 1st metatarsal with HAV deformity that is reducible and positive palpation to the lateral aspect of the right hallux XRAY: US: ASSESSMENT 1. Onychocryptosis 2. Toe pain, right 3. Hav (hallux abducto valgus), left PLAN Continue with toe spacers and continue with wider shoe gear and may discuss surgery if symptoms worsen in the future Perfomed PPN avulsion to the right toenail. Informed pt of risks/ benefits of procedure including infection,reoccurance,pain, bleeding. Pt consents. 3cc of xylocaine 2% plain injected into the affected digit and tournicut applied to affected digit for 3 minutes. The affected toe was prepped/draped in a sterile manner and the offending nail border removed and 3phenol applications of 30 seconds a peice to nail matrix. Alcohol flush applied and tournicut released with prompt hyperemic response. Patient was given a prescription for an antibiotic Omar Anand DPM [1] No Known Allergies [2] Past Medical History: Diagnosis Date Acid reflux Allergies Arthritis 2021 Bursitis Bursitis of shoulder Depression with anxiety hx fibrolipomas Hypercholesterolemia Hypertension Missed ([facility]) Restless leg syndrome Sleep apnea treated with continuous positive airway pressure (CPAP) Sleep Apnea- uses Cpap Tear of meniscus of knee Tendonitis of shoulder [3] Current Outpatient Medications: amoxicillin (Amoxil) 500 MG capsule, Take 4 tablets by mouth 1 hour prior to procedure, Disp: 4 capsule, Rfl: 1 buPROPion XL (Wellbutrin XL) 150 MG 24 hr tablet, , Disp: , Rfl: CeleBREX 200 MG capsule, Take 200 mg by mouth, Disp: , Rfl: cetirizine (ZyrTEC) 10 MG tablet, , Disp: , Rfl: cholecalciferol (Vitamin D-[address]) 25 MCG (1000 UT) tablet, Take 2,000 Units by mouth in the morning., Disp: , Rfl: Coenzyme Q10 (CO Q 10 PO), Take by mouth, Disp: , Rfl: fenofibrate micronized (Lofibra) 67 MG capsule, , Disp: , Rfl: Ferrous Sulfate (IRON PO), Take 1 tablet by mouth in the morning., Disp: , Rfl: FIBER PO, Take by mouth, Disp: , Rfl: gabapentin (Neurontin) 300 MG capsule, Take 1 capsule (300 mg) by mouth at bedtime, Disp: 30 capsule, Rfl: 0 Multiple Vitamin (multivitamin) tablet, Take 1 tablet by mouth Daily, Disp: , Rfl: pramipexole (Mirapex) 1 MG tablet, , Disp: , Rfl: pregabalin (Lyrica) 75 MG capsule, Take 1 capsule (75 mg) by mouth at bedtime, Disp: 30 capsule, Rfl: 0 pregabalin (Lyrica) 75 MG capsule, Take 1 capsule (75 mg) by mouth Daily, Disp: 30 capsule, Rfl: 1 Protonix 40 MG EC tablet, 1 (one) time each day at the same time, Disp: , Rfl: rosuvastatin (Crestor) 20 MG tablet, , Disp: , Rfl: VITAMIN D PO, Take by mouth, Disp: , Rfl: Zepbound 10 MG/0.5ML solution auto-injector, , Disp: , Rfl: documented in this encounter Plan of Treatment DateTypeDepartmentCare Team (Latest Contact Info)Fgnqupavkmu91/15/2026 3:40 PM ESTOffice Visit [facility] [address] [facility] [address] [place] [phone] Omar Anand DPM [address] [facility] [address] [place] [address] 06/30/2025 9:00 AM ESTOffice Visit [facility] [address] [place] [address] Clint Anand DO [address] [place] [address] documented as of this encounter Visit Diagnoses Diagnosis Hav (hallux abducto valgus), left- Primary Onychocryptosis Ingrowing nail Toe pain, right Pain in soft tissues of limb documented in this encounter Care Teams Team MemberRelationshipSpecialtyStart DateEnd Date Alexis Sal MD [address] [facility] [place] [address] PCP - General07/13/23documented as of this encounter
--- OUTSIDE RECORDS SUMMARY | 2025-05-20 05:45 | XMS_ITS ---
Author Organization [facility] [place] Address [address] [place] [address] Care Team Providers Care Charge Master Analyst Name Role Phone Juan F Sal Primary Care Provider [phone] Allergies No Known Allergies REASON FOR VISIT Presents to office with to go over MRI results, Had ingrown toenail removed yesterday- On short term Keflex Medications Medication SIG (Take, Route, Frequency, Duration) Notes Start Date End Date Status Pramipexole Dihydrochloride 1 mg TAKE 2 TABLETS ONCE DAILY ActivePantoprazole Sodium 40 mgTAKE 1 TABLET DAILYActiveRosuvastatin Calcium 20 MGOral; Duration: 90 DaysActiveMulti Vitamin -1 tablet Orally Once a dayActive Fluticasone Furoate 27.5 MCG/SPRAY2 sprays (1 spray in each nostril) Nasally BID; Duration: 30 days5ActiveDiclofenac Sodium 75 MG1 tablet as needed Orally Twice a day; Duration: 30 days6645RoznubWdJ97 30 MGas directed OrallyDosage UnknownActiveFeroSul 325 (65 Fe) MGtake 1 tablet Oral once daily; Duration: 90 daysActiveFenofibrate 67 MG1 capsule with a meal Orally Once a day 4ActiveFlonase Allergy Relief 50 MCG/ACT1 spray in each nostril Nasally Once a day; Duration: 30 days5ActiveCetirizine HCl 10 mgTAKE 1 TABLET AT BEDTIMEActivetiZANidine HCl 4 MG2 tabs Orally qhs; Duration: 30 days 5ActivebuPROPion HCl ER (XL) 150 mgTAKE 1 TABLET DAILYActiveZepbound 10 MG/0.5MLas directed Subcutaneous wwghch625Active Social History Tobacco Use: Social History Observation Description Date Details (start date - stop date) Never Smoker NA - NA Tobacco Use/Smoking Question Answer Notes Patient is a nonsmoker AUDIT-C (Standard) Question Answer Notes Did you have a drink containing alcohol in the p ast year? No Wjccgx3TlspxwtpamcmmkUvvvfjql Problems Problem Type SNOMED Code ICD Code Onset Dates Problem Status W/U Status Risk Notes Problem Thyroglossal duct cyst (23004200) Thyrogl ossal duct cyst (Q89.2) Activeconfirmed Vital Signs Weight 156.2 lbs 05/20/2025 Height 62 in 05/20/2025 Blood pressure systolic 116 mm Hg 05/20/20 25 Blood pressure diastolic 76 mm Hg 025 BMI 28.57 kg/m2 05/20/2025 Encounters Encounter Location Date Provider Diagnosis [facility] [address] [place] [address] 05/20/2025 Juan F Sal Other chronic pain G89.29 ; Cervical pain M54.2 and Thyroglossal duct cyst Q89.2 Assessments Encounter Date Diagnosis (ICD Code) Assessment Notes Treatment Notes Treatment Clinical Notes Section Notes 05/20/2025 Other chronic pain (ICD-10 - G89 .29) 05/20/2025ervical pain (ICD-10 - M54.2)05/20/2025Thyroglossal duct cyst (ICD-10 - Q89.2)05/20/2025OtherRecommended to rest and use a heating pad on the area. Take NSAIDs for pain as needed Plan Of Treatment Treatment Notes Assessment Notes Other Recommended to rest and use a heating pad on the area. Take NSAIDs for pain as needed Pending Test Test Name Order Date US THYROID 05/20/2025 Progress Notes * Angela CESAR EDOB:[birth year] (55 yo F)Acc No.[id number]:05/20/2025 Progress Note Patient: Angela HANSEN :?Alexis Sal ([facility]), MDDOB:1970???Age: 55 Y???Sex:FemaleDate:05/20/2025Phone:[phone]:[address] [place], [phone] In:10:35 AM ESTCheck Out:11:20 AM EST Subjective: * Chief Complaints: * P resents to office with to go over MRI resultsHad ingrown toenail removed yesterday- On short term Keflex * HPI: ???General:? disucsed thyroglossal duct cys amr paresthesia. ???Back Pain:? The patient complains of -. The symptoms have been present for1-2 days. The patient believes symptoms are injury related No. The symptoms are mild. Symptomatic treatment has included heating pad, stretching. Associated symptoms include None. * ROS: ???General/Constitutional:?Lightheadedness?denies.?Change in appetite?denies.?Weight Change?denies.?Cardiovascular:?Irregular heartbeat?denies.?Swelling in hands/feet denies.?Respiratory:?Shortness of breath?denies.?Shortness of breath with e xertion?denies.?Wheezing?denies.?Musculoskeletal:?Comments?See HPI for details.?Neurologic:?Dizziness?denies.?Fainting?denies.?Headache denies.? * Active Problem List G25.81 Restless leg Modified On:11/08/2022/U Status:elexsnsveC32.30Sleep apnea Modified On:11/08/2022/U Status:hucnsuvmqM77.00Insomnia Modified On:11/08/2022/U Status:yyvbdbrfpR27.11Unilateral primary osteoarthritis, right knee Modified On:07/28/2023W/U Status:fkmtshuxzQ04.29Other chronic pain Modified On:11/08/2022/U Status:rsegdkqtmR89.511Pain in right shoulder Modified On:11/08/2022U Status:ezpwpsichI88.512Pain in left shoulder Modified On:11/08/2022 Status:gwidqhyttL79.00Pure hypercholesterolemia, unspecified Modified On:11/08/2022 Status:godrxcaaeP28.86Low back derangement syndrome Modified On:09/10/2023 Status:cqvqplzppZ27.0Acute UTI Modified On:09/10/2023U Status:exkdryrfoQ09.10Knee osteoarthritis Modified On:10/15/2023U Status:mvfshyhqcN36.00Well adult Modified On:10/21/2023U Status:xyeafgfwpS86.30Sciatica Modified On:10/31/2023 Status:tjpfrgdljC90.9GERD (gastroesophageal reflux disease) Modified On:01/19/2024 Status:ophjhvpkjN00.90Osteoarthritis Modified On:03/15/2024 Status:ccnnggrioL66Adwagijpcxnw Modified On:05/12/2024U Status:ntvuqapinR36.2Cervical pain Modified On:04/22/2025U Status:wzcatqzwmY94.90Arthritis of spine Modified On:04/25/2025U Status:xbclhsmpvE95.2Thyroglossal duct cyst Modified On:05/20/2025 Status:confirmed * Medical History: * Surgical History: L eap Surgery 10/2005Shoulder Surgery- Right Surgery- Dr. Murillo RT knee- medial meniscectomy- Dr. Ospina 12/05/2023 * Hospitalization/Major Diagno stic Procedure: * Family History: F ather: 56 yrs, acute myocardial infarction, alcoholism, Heart Disease, diagnosed with Heart Disease. M other: 73 yrs, Heart Disease, hypertension, Hypercholesterolemia, type II diabetes, diagnosed with Diabetes, Hypertension, Heart Disease. B rother(s): , suicide. S ister(s): alive, acute myocardial infarction, Heart Disease, diagnosed with Heart Disease. S on(s): alive. D aughter(s): alive. 2 brother(s) , 2 sister(s) . 1 son(s) , 1 daughter(s) - healthy. . * Social History: ???Tobacco Use:?Tobacco Use/Smoking?Patient is a?nonsmoker ???Drug/Alcohol:?AUDIT-C (Standard)?Did you have a drink containing alcohol in the past year??No ?Points?0 ?Interpretation?Negative * Medications: T akingbuPROPion HCl ER (XL) 150 mg Tablet Extended Release 24 Hour TAKE 1 TABLET DAILY Cetirizine HCl 10 mg Tablet TAKE 1 TABLET AT BEDTIME CoQ10 30 MG Capsule as directed Orally , Notes to Pharmacist: Dosage UnknownDiclofenac Sodium 75 MG Tablet Delayed Release 1 tablet as needed Orally Twice a day Fenofibrate 67 MG Capsule 1 capsule with a meal Orally Once a day FeroSul(Ferrous Sulfate) 325 (65 Fe) MG Tablet take 1 tablet Oral once daily Flonase Allergy Relief(Fluticasone Propionate) 50 MCG/ACT Suspension 1 spray in each nostril Nasally Once a day Fluticasone Furoate 27.5 MCG/SPRAY Suspension 2 sprays (1 spray in each nostril) Nasally BID Multi Vitamin - Tablet 1 tablet Orally Once a day Pantoprazole Sodium 40 mg Tablet Delayed Release TAKE 1 TABLET DAILY Pramipexole Dihydrochloride 1 mg Tablet TAKE 2 TABLETS ONCE DAILY Rosuvastatin Calcium 20 MG Tablet Oral tiZANidine HCl 4 MG Tablet 2 tabs Orally qhs Zepbound(Tirzepatide-Weight Management) 10 MG/0.5ML Solution Auto-injector as directed Subcutaneous weekly Medication List reviewed and reconciled with the patientTaking buPROPion HCl ER (XL) 150 mg Tablet Extended Release 24 Hour TAKE 1 TABLET DAILY Taking Cetirizine HCl 10 mg Tablet TAKE 1 TABLET AT BEDTIME Taking CoQ10 30 MG Capsule as directed Orally , Notes to Pharmacist: Dosage UnknownTaking Diclofenac Sodium 75 MG Tablet Delayed Release 1 tablet as needed Orally Twice a day Taking Fenofibrate 67 MG Capsule 1 capsule with a meal Orally Once a day Taking FeroSul(Ferrous Sulfate) 325 (65 Fe) MG Tablet take 1 tablet Oral once daily Taking Flonase Allergy Relief(Fluticasone Propionate) 50 MCG/ACT Suspension 1 spray in each nostril Nasally Once a day Taking Fluticasone Furoate 27.5 MCG/SPRAY Suspension 2 sprays (1 spray in each nostril) Nasally BID Taking Multi Vitamin - Tablet 1 tablet Orally Once a day Taking Pantoprazole Sodium 40 mg Tablet Delayed Release TAKE 1 TABLET DAILY Taking Pramipexole Dihydrochloride 1 mg Tablet TAKE 2 TABLETS ONCE DAILY Taking Rosuvastatin Calcium 20 MG Tablet Oral Taking tiZANidine HCl 4 MG Tablet 2 tabs Orally qhs Taking Zepbound(Tirzepatide-Weight Management) 10 MG/0.5ML Solution Auto-injector as directed Subcutaneous weekly Medication List reviewed and reconciled with the patient * Allergies: N .K.D.A.no[Allergies Verified] Objective: * Vitals: W t:156.2lbs, Ht: 62 in, BP:116/76mm Hg, BMI:28.57Index, Ht-cm: 157.48 cm, Wt-k.85 kg. * Examination: ???General Examination: ?GENERAL APPEARANCE:?in no acute distress, well developed, well nourished.?LUNGS:? clear to auscultation bilaterally.?CARDIO:? S1, S2 normal, no murmurs, rubs, gallops.?MUSCULOSKELETAL:?Poor rom in neck due to pain - no weakness in hands.?EXTREMITIES:? no clubbing, cyanosis, or edema.?NEUROLOGIC:? alert, oriented to time, place, & person. ??? Assessment: * Assessment: 1.?Other chronic pain - G89.29 (Primary)???2.?Cervical pain - M54.2?&# 160;?3.?Thyroglossal duct cyst - Q89.2??? Plan: * Treatment: ?Imaging: US THYROID2.?Others? Notes: Recommended to rest and use a heating pad on the area. Take NSAIDs for pain as needed? * Procedure Codes: * Preventive Medicine: ??Screenings/Counseling:?BMI ACTION PLAN?Above Normal BMI Follow-up?Dietary management education, guidance, and counseling See treatment section of progress note for complete details of management plan. * * Sign off status: CompletedVisit Status:?CHK (Check Out) true * Provider: Leydi Sal (TTC)MD Date: 1 07/21/2024 Generated for Printing/Faxing/eTransmitting on:?05/27/2025 09:26 AM EST History and Physical Notes * HPI (History of Present Illness) CategorySub-CategoryDetailNotesCategory NotesGeneral disucsed thyroglossal duct cys amr paresthesia Examination CategorySub-CategoryDetailNotesCategory NotesGeneral ExaminationGENERAL APPEARANCE:in no acute distress, well developed, well nourishedCARDIO:S1, S2 normal, no murmurs, rubs, gallopsLUNGS:clear to auscultation bilaterally NEUROLOGIC:alert, oriented to time, place, & personEXTREMITIES:no clubbing, cyanosis, or edemaMUSCULOSKELETAL:Poor rom in neck due to pain - no weakness in hands
--- NOTE | 2025-05-27 09:24 | US_ITS ---
The [address] [address] Patient Name: CARLY STEPHENS MRN: [id number] date: 1970 Sex: F Assigned Patient Location: US Current Patient Location: US Accession/Order Number: [id number] Exam Date: 05/27/2025 09:25 Report Date: 05/27/2025 10:11 At the request of: CRISTIAN MUÑOZ MD Procedure: US thyroid THYROID ULTRASOUND COMPARISON: MRI cervical spine 05/17/2025 CLINICAL DATA: Thyroglossal duct cyst The right thyroid lobe measures 4.2 x 1.1 x 1.3 cm. The left lobe measures 3.5 x 0.9 x 1.0 cm. The isthmus measures 3 mm. There is normal thyroid echotexture. No thyroid nodularity is seen. Superior to the thyroid in the midline, there is a cyst measuring 19 x 9 x 16 mm in size. This correlates with the suspected thyroglossal duct cyst seen on the comparison MRI study. US/US thyroid IMPRESSION: NO THYROID NODULARITY. SUSPECTED THYROGLOSSAL DUCT CYST CORRELATING WITH THE FINDING ON RECENT MRI Impression dictated by: Alyssa Ambriz M.D. 05/27/2025 10:11 AM Dictation Location: [facility] Electronically authenticated by: [id number] Date: 05/27/2025 10:11
--- OUTSIDE RECORDS SUMMARY | 2025-05-27 09:26 | XMS_ITS | Patient Health Record ---
Author Organization [facility] in [place] Address [address] [place] [address] Care Team Providers Care Straw Boss Name Role Phone Juan F Muñoz Primary Care Provider Allergies No Known Allergies Results Component Value Reference Range Notes Occult Blood* Reviewed date:01/19/2025 12:58:23 PM Interpretation: Performing Lab: Notes/Report: [facility] , Occult Blood Negative Performing Lab:see noteML - [facility] LBTSH Reviewed date:12/07/2024 08:10:55 PM Interpretation: Performing Lab: Notes/Report: [facility] ,Thyroid Stimulating Hormone1.6730.358-3.740 uIU/mLPerforming Lab:see noteML - [facility] LBT4 Reviewed date:12/07/2024 08:10:55 PM Interpretation: Performing Lab: Notes/Report: [facility] ,T4 Thyroxine7.004.80-13.90 ug/dLPerforming Lab:see noteML - [facility] LBPROF 14(COMP METB) Reviewed date:12/07/2024 08:10:55 PM Interpretation: Performing Lab: Notes/Report: [facility] ,Wzaguw517176-288 mmol/LPotassium4.23.5-5.1 mmol/KKxhervdp18893-911 mmol/LCarbon Ysbjhma38.321.0-32.0 mmol/LAnion Gap11.8Yamxgpg5909-436 mg/dLBlood Urea Nitrogen 15.07.0-18.0 mg/dLCreatinine0.800.55-1.02 mg/dLEstimated GFR ( Nancy>60 >=60 mL/min/1.73m 2Estimated GFR (Non- Lena>60>=60 mL/min/1.73m 2BUN Creatinine Ratio18.8Ozxtcqq2.78.5-10.1 mg/dLBilirubin Total0.40.2-1.0 mg/dL Aspartate Amino Dsdhxmkpgvy8434-19 U/LAlanine Dtxhztuwsllywycr6551-04 U/L Alkaline Hffrwhgwzom6979-967 U/LTotal Protein6.66.4-8.2 g/dLAlbumin Level3.63.4- 5.0 g/dLGlobulin3.0Albumin Globulin Ratio1.2Performing Lab:see noteML - [facility] LBLIPID PROFILE Reviewed date:12/07/2024 08:10:55 PM Interpretation: Performing Lab: Notes/Report: [facility] ,Fyfbytmnpdwoo38<=150 mg/fTJozrlssnhzy288<=200 mg/dLHDL Xrotmiwaprj0182-82 mg/dL <40 mg/dl - HIGH CARDIOVASCULAR RISK > or =60 mg/dl - LOW CARDIOVASCULAR RISK LDL Cholesterol Uxamxsclec44.2 160-189 mg/dl HIGH >190 mg/dl VERY HIGH <100 mg/dl OPTIMAL 130-159 mg/dl BORDERLINE HIGH 100-129 mg/dl NEAR OR ABOVE OPTIMAL VLDL GZTFTJIHLDD09.8Chol HDL Ratio2.1 7.1 - 11.0 MODERATE RISK 3.3 - 4.4 LOW RISK >11.0 HIGH RISK 4.4 - 7.1 AVERAGE RISK Performing Lab:see noteML - [facility] LBGLYCOHEMOGLOBIN A1C Reviewed date:12/07/2024 08:10:55 PM Interpretation: Performing Lab: Notes/Report: [facility] ,Glycohemoglobin A1C5.14.5-6.2 % ADA RECOMMENDED LIMIT 4.0 - 6.0 ADA THERAPEUTIC TARGET < 7.0 > 7.0 ACTION SUGGESTED Estimated Average Aqpvjgu942Hcmwlhnlef Lab:see noteML - [facility] LB FREE T3 Reviewed date:12/07/2024 08:10:55 PM Interpretation: Performing Lab: Notes/Report: [facility] ,Free T32.952.18-3.98 pg/mLPerforming Lab:see noteML - [facility] LB CBC AUTO DIFF Reviewed date:12/07/2024 08:10:55 PM Interpretation: Performing Lab: Notes/Report: [facility] ,White Blood Count6.44.0-11.0 10 3/uLRed Blood Count4.034.20-5.40 10 6/uL Faztgsxwkd68.212.0-16.0 g/yNTnfnxxabdy81.436.0-48.0 %Mean Corpuscular Jkzuzd98.3 81.0-99.0 fLMean Corpuscular Mgzgydaswd46.326.7-34.0 pgMean Corpuscular HGB Conc 33.529.9-35.2 g/dLRed Cell Distribution Width13.011.0-15.0 %Platelet Aoaxt612 150-450 10 3/uLMean Platelet Pgeefj14.09.5-13.5 fLNeutrophils Percent Auto62.2 43.0-75.0 %Lymphocytes Percent Auto29.020.5-60.0 %Monocytes Percent Auto6.01.7- 12.0 %Eosinophils Percent Auto2.20.9-7.0 %Basophils Percent Auto0.30.2-2.0 % Immature Granulocytes Pct Auto0.30.0-0.5 %Neutrophils Absolute Auto4.01.4-6.5 10 3/uLLymphocytes Absolute Auto1.81.2-3.8 10 3/uLMonocytes Absolute Auto0.40.3-0.8 10 3/uLEosinophils Absolute Auto0.10.0-0.7 10 3/uLBasophils Absolute Auto0.00.0- 0.1 10 3/uLImmature Granulocytes Abs Auto0.020.00-0.03 10 3/uLPerforming Lab:see noteML - [facility] LBXR cervical spine 2-3V Reviewed date:04/23/2025 01:41:17 PM Interpretation: Performing Lab: Notes/Report: Source Facility: [facility]-[address] [place] [address] [place] [address] XRay Report Signed Patient: ANGELA CESAR MR#: [id number] : 1970 Acct:[id number] Age/Sex: 55 / F ADM Date: 04/22/25 Loc: RAD Attending Dr: Cristian Muñoz M.D. Ordering Physician: Cristian Muñoz M.D. Date of Service: 04/22/25 Procedure(s): XR cervical spine 2-3V Accession Number(s): [id number] cc: Cristian Muñoz M.D. [place] [address] Patient Name: ANGELA CESAR MRN: [facility]:[id number] date: 1970 Sex: F Assigned Patient Location: [facility] Current Patient Location: RAD Accession/Order Number: [id number] Exam Date: 04/22/2025 11:17 Report Date: 04/22/2025 11:59 At the request of: CRISTIAN MUÑOZ MD Procedure: XR cervical spine 2-3V CERVICAL SPINE - 3 views: COMPARISON: None CLINICAL HISTORY: Neck pain and stiffness for the past 4 months. No injury. AP, lateral and odontoid views were obtained. There is straightening of the normal cervical lordosis. No acute compression fractures are seen. There is a few millimeters of retrolisthesis of C5 on C6. There is disc space narrowing at that level. Endplate spurring and facet hypertrophy are seen. The atlantoaxial relationship is maintained. There is no prevertebral soft tissue swelling. XR/XR cervical spine 2-3V IMPRESSION: LOSS OF NORMAL CERVICAL LORDOSIS. DEGENERATIVE CHANGE, GREATEST AT C5-6. Impression dictated by: Alyssa Ambriz M.D. 04/22/2025 11:59 AM Dictation Location: [place] [address] Electronically authenticated by: [id number] Y Date: 04/22/2025 11:59 Dictated By: Alyssa Ambriz M.D. Signed By: 04/22/25 1201 DD/ 1159 TD/TT: Director Of Housing:JOSETTE WHITE ([id number]) - IN OFFICE Reviewed date:10/01/2024 10:51:17 AM Interpretation: Performing Lab: Notes/Report: COLORYellowCLARITYClearGLUCOSENegBILIRUBINNegKETONENegSPECIFIC GRAVITY1.005BLOOD ZqaEV5BKNGGIYSchJLSKIJWPREJWNpbFWUVDLEIhtYCKEPPSEW ESTERASE++MR cervical spine wo con Reviewed date:05/17/2025 04:47:39 PM Interpretation: Performing Lab: Notes/Report: Source Facility: [place] [address] [place] [address] Magnetic Resonance Report Signed Patient: ANGELA CESAR MR#: [id number] : 1970 Acct:[id number] Age/Sex: 55 / F ADM Date: 05/17/25 Loc: MRI Attending Dr: Cristian Muñoz M.D. Ordering Physician: Cristian Muñoz M.D. Date of Service: 05/17/25 Procedure(s): MR cervical spine wo con Accession Number(s): [id number] cc: Cristian Muñoz M.D. [place] [address] Patient Name: ANGELA CESAR MRN: [facility]:[id number] date: 1970 Sex: F Assigned Patient Location: MRI Current Patient Location: MRI Accession/Order Number: [id number] Exam Date: 05/17/2025 08:45 Report Date: 05/17/2025 16:20 At the request of: CRISTIAN MUÑOZ MD Procedure: MR cervical spine wo con MR cervical spine wo con 05/17/2025 11:07 AM SIGNS AND SYMPTOMS: Neck pain radiating into shoulders PROTOCOL: Multiplanar multisequence MR images of the cervical spine without IV contrast COMPARISON: None. FINDINGS: The bones of the cervical spine are in anatomic alignment. There is preservation of vertebral body heights. There is mild disc height loss at C4-C5 with moderate disc height loss at C5-C6. The marrow signal is within normal limits. The cord is normal in signal. No epidural or paraspinous fluid collection is appreciated. The visualized paraspinous soft tissues are within normal limits. The prevertebral soft tissues are within normal limits. Mucosal thickening is noted in the ethmoid air cells and maxillary sinuses. Incidental note is made of an intermediate signal intensity structure in the midline standing inferior from the hyoid suggesting a thyroglossal duct cyst. This measures 1.4 x 1.2 x 1.9 cm. At C2-C3: There is a normal disc, central canal, and neural foramen. At C3-C4: There is a normal disc, central canal, and neural foramen. At C4-C5: There is a normal disc, central canal, and neural foramen. At C5-C6: There is a broad-based disc bulge without to joint spurring and facet hypertrophy. There is mild bilateral neural foraminal narrowing with mild spinal canal narrowing. At C6-C7: There is a normal disc, central canal, and neural foramen. At C7-T1: There is a normal disc, central canal, and neural foramen. MR/MR cervical spine wo con IMPRESSION: No cord compression or cord signal abnormality. At C5-C6: There is a broad-based disc bulge without to joint spurring and facet hypertrophy. There is mild bilateral neural foraminal narrowing with mild spinal canal narrowing. Incidental note is made of an intermediate signal intensity structure in the midline standing inferior from the hyoid suggesting a thyroglossal duct cyst. This measures 1.4 x 1.2 x 1.9 cm. Impression dictated by: Tristen La M.D. 05/17/2025 4:20 PM Dictation Location: [place] [address] Electronically authenticated by: [id number] Y Date: 05/17/2025 16:20 Dictated By: Tristen La M.D. Signed By: 05/17/25 1623 DD/ 1620 TD/TT: Director Of Housing: Reason For Referral No Information Medications Medication SIG (Take, Route, Frequency, Duration) Notes Start Date End Date Status Multi Vitamin - 1 tablet Orally Once a day ActiveFluticasone Furoate 27.5 MCG/SPRAY2 sprays (1 spray in each nostril) Nasally BID; Duration: 30 days5ActivePramipexole Dihydrochloride 1 mg TAKE 2 TABLETS ONCE DAILYActivePantoprazole Sodium 40 mgTAKE 1 TABLET DAILY ActiveCetirizine HCl 10 mgTAKE 1 TABLET AT BEDTIMEActivetiZANidine HCl 4 MG2 tabs Orally qhs; Duration: 30 days5ActivebuPROPion HCl ER (XL) 150 mg TAKE 1 TABLET DAILYActiveRosuvastatin Calcium 20 MGOral; Duration: 90 DaysActive Diclofenac Sodium 75 MG1 tablet as needed Orally Twice a day; Duration: 30 days 04/22/20259771MoawiuTjB18 30 MGas directed OrallyDosage UnknownActiveZepbound 10 MG/0.5MLas directed Subcutaneous otrqes765ActiveFeroSul 325 (65 Fe) MG take 1 tablet Oral once daily; Duration: 90 daysActiveFenofibrate 67 MG1 capsule with a meal Orally Once a day05/12/2024ctiveFlonase Allergy Relief 50 MCG/ACT1 spray in each nostril Nasally Once a day; Duration: 30 days5Active Immunizations Vaccine Route Administration Date Status Comme nts Flu, Flucelvax (18645) 6 mos and older, single-dose syringe (9681-3313) IM Intramuscular 04/22/2025 Administered Flu, Flucelvax (54100) 2 yrs+, single-dose syringe (2887-2938)Xgefwqw0603/30/2020 AdministeredFlu, Flucelvax (24380) 2 yrs+, single-dose syringe (6160-0506) Hshezrb72/11/2023AdministeredFlu, Flucelvax (47072) 4 yrs and older, multi-dose vial (1550-6376)Krybsgt7804/08/2018AdministeredPPD TestTD Zxawehrvekf77/14/2024 AdministeredPPD TestTD Emimytmklyu15/21/4516NzvbishaioftGZRG-RJJ-1 (COVID 19 Pfizer 30mcg/0.3mL)Hqlesxo4211/07/20205878WjmupdjprcixNJZN-KFK-0 (COVID 19 Pfizer 30mcg/0.3mL)Qgvxzni75/22/2021AdministeredZOSTER (SHINGLES) VACCINE (HZV)Unknown 06/14/2021dministeredZOSTER (SHINGLES) VACCINE (HZV)Mxmddpv6610/04/2021 Administered Social History Tobacco Use: Social History Observation Description Date Details (start date - stop date) Never Smoker NA - NA Tobacco Use/Smoking Question Answer Notes Patient is a nonsmoker AUDIT-C (Standard) Question Answer Notes Did you have a drink containing alcohol in the p ast year? No Wpbbgd7PgqxcwyyzmhnuxNjtnlxso Problems Problem Type SNOMED Code ICD Code Onset Dates Problem Status W/U Status Risk Notes Problem Chronic pain (38697580) Other chronic lew n (G89.29) ActiveconfirmedProblemPrimary osteoarthritis (112334316)Unilateral primary osteoarthritis, right knee (M17.11)ActiveconfirmedProblemPain of right shoulder region (finding) (3792777889)Pain in right shoulder (M25.511)Activeconfirmed ProblemShoulder joint pain (161137772)Pain in left shoulder (M25.512)Active confirmedProblemHypertension (22656618)Hypertension (I10)ActiveconfirmedProblem Osteoarthritis (115492199)Osteoarthritis (M19.90)ActiveconfirmedProblem Gastroesophageal reflux disease (233364820)GERD (gastroesophageal reflux disease) (K21.9)ActiveconfirmedProblemRestless legs (94887138)Restless leg (G25.81)ActiveconfirmedProblemSleep apnea (81037034)Sleep apnea (G47.30)Active confirmedProblemInsomnia (850672291)Insomnia (G47.00)ActiveconfirmedProblem Cervical pain (36893599)Cervical pain (M54.2)ActiveconfirmedProblemWell adult (001573506)Well adult (Z00.00)ActiveconfirmedProblemSciatica (30649590)Sciatica (M54.30)ActiveconfirmedProblemAcute urinary tract infection (037319835)Acute UTI (N39.0)ActiveconfirmedProblemThyroglossal duct cyst (45946447)Thyroglossal duct cyst (Q89.2)ActiveconfirmedProblemArthritis of spine (320923804)Arthritis of spine (M46.90)ActiveconfirmedProblemPure hypercholesterolemia (306639893)Pure hypercholesterolemia, unspecified (E78.00)ActiveconfirmedProblemDisorder of sacrum (36198150)Low back derangement syndrome (M53.86)ActiveconfirmedProblem Osteoarthritis of knee (549826487)Knee osteoarthritis (M17.10)Activeconfirmed Vital Signs Blood pressure diastolic 76 mm Hg 05/20/2025 Ntwdfo58 in05/20/2025lood pressure gkjdihqh308 mm Hg05/20/20256496Zltfua957.2 lbs 05/20/2025BMI28.57 kg/m205/20/2025 Procedures Procedure Date Ordered Date Performed Result Body Sit e Sleep Study: Retitration BIPAP/CPAP 06/17/2024 N/A Encounters Encounter Location Date Provider Diagnosis [facility] [address] [place] [address] 05/20/2025 Juan F Hoy Other chronic pain G89.29 ; Cervical pain M54.2 and Thyroglossal duct cyst Q89.2 [facility] [address] [place] [address] 10/01/2024 Juan F Hoy Frequency of micturi tion R35.0 [facility] [address] [place] [address] 04/22/2025 Juan F Hoy Cervical pain M54.2 and Encounter for immunization Z23 [facility] [address] [place] [address] 06/17/2024 Juan F Hoy Sleep apnea G47.30 a nd Insomnia G47.00 [facility] [address] [place] [address] 07/07/2024 Juan F Hoy [facility] [place] [address] 10/01/2024Doug [facility] [place] [address]/Doug HoyUrinary frequency R35.0 and Sleep apnea G47.30[facility] [place] [address]/ Juan F [facility] [place] [address]/Doug [facility] [place] [address]/Doug HoyWell adult Z00.00[facility] [place] [address]/06/2024[facility]BV[facility] [place] [facility] [address]/05/2025 [facility] [place] [address]/Doug HoyArthritis of spine M46.90 and Cervical pain M54.2[facility] [place] [place] [address]/ Juan F HoyArthritis of spine M46.90[facility] [place] [address]/02/2025Doug Hoy Assessments Encounter Date Diagnosis (ICD Code) Assessment Notes Treatment Notes Treatment Clinical Notes Section Notes 06/17/2024 Sleep apnea (ICD-10 - G47.30) 06/17/2024Insomnia (ICD-10 - G47.00)10/01/2024Frequency of micturition (ICD-10 - R35.0)04/22/2025ervical pain (ICD-10 - M54.2)10/01/2024Urinary frequency (ICD- 10 - R35.0)05/20/2025Other chronic pain (ICD-10 - G89.29)05/20/2025ervical pain (ICD-10 - M54.2)11/29/2024Well adult (ICD-10 - Z00.00)04/23/2025rthritis of spine (ICD-10 - M46.90)05/02/2025rthritis of spine (ICD-10 - M46.90)04/23/2025 Cervical pain (ICD-10 - M54.2)05/20/2025Thyroglossal duct cyst (ICD-10 - Q89.2) 10/01/2024Sleep apnea (ICD-10 - G47.30)04/22/2025Encounter for immunization (ICD-10 - Z23)04/22/2025OtherRecommended to rest and use a heating pad on the area. Take NSAIDs for pain as aqukoa6305/20/2025OtherRecommended to rest and use a heating pad on the area. Take NSAIDs for pain as needed Plan Of Treatment Pending Test Test Name Order Date CMP (COMPLETE METABOLIC PANEL) UA (URINALYSIS, COMPLETE) 10/23/2023 CULTURE, URINE w SENSITIVITY 10/23/2023 HEMOGLOBIN A1C (GLYCO) 10/21/2023 CBC WITH DIFF (EXP 04/2025) 10/21/2023 Urinalysis Microscopic 10/21/2023 FECAL OCCULT BLOOD 11/18/2022 FECAL OCCULT BLOOD 11/29/2024 Sleep Study: Retitration BIPAP/CPAP 02/2025 .Urinalysis Microscopic Only 10/23/2023 STOOL OCCULT BLOOD 10/21/2023 CBC AUTO DIFF 11/18/2022 CBC AUTO DIFF 11/29/2024 CULTURE URINE 10/23/2023 GLYCOHEMOGLOBIN A1C 11/18/2022 GLYCOHEMOGLOBIN A1C 11/29/2024 LIPID PROFILE 11/29/2024 LIPID PROFILE 11/18/2022 PROF 14(COMP METB) 11/29/2024 THYROID PROFILE WITH TSH 11/18/2022 MRI CSPINE W CON 04/23/2025 US THYROID 05/20/2025 THYROID PANEL (T4/TSH/FREE T3) THYROID PANEL (T4/TSH/FREE T3) MRI Cervical Spine w/o contrast * 2024 Insurance Providers Payer Name Payer Address Payer Phone Subscriber Number Group Number Insured Name Patient Relationship to Insured Coverage Start Date Coverage End Date [facility] CLAIMS [address] [place] [phone] [id number] Amira Cesar - patient is the spouse of the insured Medications Administered Medication Instructions Date of Administration Dosage Notes Dexamethasone, 4mg/mL mgKenalog-400 mgKetorolac Gekntqvcwirq66/03/202460 mg60 Ketorolac Oljojysefcfd60/30/202460 mgOrphenadrine Vuphspx01 mg60 Orphenadrine Jwujqhh74 mgSynvisc One mL Medical (General) History Medical History History ICD Code Chest Pain Covid-19Low Back Pain SyndromeSprain of ligaments of thoracic spineEczema Surgical History Surgery Date(Month/Year) Leap Surgery 10/2005 Shoulder Surgery- Right Surgery- Dr. Kearns knee- medial meniscectomy- Dr. Ospina12/05/2023
--- OUTSIDE RECORDS SUMMARY | 2025-05-27 09:26 | XMS_ITS | Clinical Summary ---
Author Organization [facility] Address [address] [place] [address] Care Team Providers Care Veneer Sorter Name Role Phone Alexis Sal MD Primary Care Provider [phone] Medications MedicationSigDispense QuantityRefillsLast FilledStart DateEnd DateStatus cetirizine 10 mg ORAL tablet Take 10 mg by mouth once daily.Active diclofenac, EC, 75 mg ORAL EC tablet Take 75 mg by mouth twice daily.Active Social History Tobacco UseTypesPacks/DayYears UsedDateSmoking Tobacco: Never Assessed CommentsUnknownSex and Gender InformationValueDate RecordedSex Assigned at Not on fileLegal MnvHqbeas05/02/2012 10:14 AM ESTGender IdentityNot on file Sexual OrientationNot on file Plan of Treatment Not on file Insurance Care Teams Team MemberRelationshipSpecialtyStart DateEnd Alexis Sal MD [facility]
--- OUTSIDE RECORDS SUMMARY | 2025-05-27 09:26 | XMS_ITS | Encounter Summary ---
Author Organization [facility] Address [address] [place] [address] Care Team Providers Care Sports Manager Name Role Phone Alexis Sal MD Primary Care Provider [phone] Encounter Details DateTypeDepartmentCare Team (Latest Contact Info)Rchuajjxqyb11/11/2025bstract [facility] [address] [facility] [address] [place] [address] Omar Anand, DPSaima [address] [facility], [place] [address] [place] [address] Social History Tobacco UseTypesPacks/DayYears UsedDateSmoking Tobacco: NeverSmokeless Tobacco: NeverAlcohol UseStandard Drinks/WeekCommentsYes0 (1 standard drink = 0.6 oz pure alcohol)1-2 drinks monthly or less, coffee 2-3 cups per dayComments UnknownSex and Gender InformationValueDate RecordedSex Assigned at BirthFemale 07/13/2023 8:41 AM ESTLegal GcwPncbpr85/15/2023 6:45 PM EDTGender IdentityFemale 07/13/2023 8:41 AM ESTSexual OrientationNot on filedocumented as of this encounter Plan of Treatment DateTypeDepartmentCare Team (Latest Contact Info)Bmqmlgcrlle68/15/2026 3:40 PM ESTOffice Visit [facility] [address] [facility] [address] [place] [address] Omar Anand DPM [address] [facility], [place] [address] [place] [address] 06/30/2025 9:00 AM ESTOffice Visit [facility] [address] [place] [address] Clint Anand DO [address] [place] [address] documented as of this encounter Visit Diagnoses Not on filedocumented in this encounter Care Teams Team MemberRelationshipSpecialtyStart DateEnd Alexis Sal MD [address] [facility] [place] [address] [phone] PCP - General07/13/23documented as of this encounter
--- OUTSIDE RECORDS SUMMARY | 2025-05-27 09:26 | XMS_ITS | Clinical Summary ---
Author Organization [facility] Address [address] [place] [address] Phone Care Team Providers Care Caser Name Role Phone Alexis Sal MD Primary Care Provider [phone] Social History Tobacco UseTypesPacks/DayYears UsedDateSmoking Tobacco: Never Assessed CommentsUnknownSex and Gender InformationValueDate RecordedSex Assigned at Not on fileLegal JkcRmkxjw98/25/2022 4:01 PM ESTGender IdentityNot on fileSexual OrientationNot on file Plan of Treatment Health MaintenanceDue DateLast DoneCommentsCT Khdbxikvhdzm1971Colonoscopy 1971Colorectal Cancer Cliovpnmf1971FIT-DNA (Cologuard)1971FIT 1971HIV Asddyfalo1971Lipid Panel1971 5314Jwyxfpsdnhttd1971 Yearly Adult Xljrhrgy1971MMR Vaccines (1 of 1 - Standard series)01/14/1972 Hepatitis C Drlxgluzw28/07/1989Hepatitis B Vaccines (1 of 3 - 19+ 3-dose series) 1990HPV/Ehauaz2701/14/1992DTaP/Tdap/Td Vaccines (1 - Tdap)1993 Gbwfgfhsa60/07/2011Cervical Cancer Bgarwcyhk83/25/2014Pap Smear01/31/2014 01/31/2011, 01/09/2010, 11/22/2008Pneumococcal Vaccine (1 of [...] complete this topic Procedures Procedure NamePriorityDate/TimeAssociated DiagnosisCommentsCONVERTED JAVA SOFTWARE OITLQMGMVbxvxgh24/25/2011 12:00 AM EDT from Last 3 Months or Most Recently Relevant to Health Maintenance Results * CONVERTED JAVA SOFTWARE CYTOLOGY (01/31/2011 12:00 AM EDT)ComponentValueRef RangeTest MethodAnalysis TimePerformed AtPathologist SignaturePathology Report ADDENDUM ? Date of Procedure: ??01/31/2011 ? Pathologist: [facility], Cytology Date Reported: 02/08/2011 Date Received: ??01/31/2011 [...] performed by the Molecular Diagnostics Laboratory at [facility]. ? This specimen has been analyzed by the [employer] Imaging System (Recommind.), an automated imaging and review system, which assists the laboratory in evaluating cells on ThinPrep Pap tests. Following automated imaging, selected lugo from every slide were reviewed by a duplication specialist and/or pathologist. Electronically Signed Out By [facility], Cytology//CAN/ELEUTERIO By the signature on this report, [...] PERFORMED BY THE MOLECULAR DIAGNOSTIC LABORATORY AT [facility], UNDER THE SUPERVISION OF DR. CECE FLORES MD. ??THE LAB IS CERTIFIED UNDER THE CLINICAL LABORATORY AMENDMENTS OF 1988 (CLIA-88) QUALIFIED TO PERFORM HIGH COMPLEXITY CLINICAL LABORATORY TESTING. Reference Range: Negative ? Electronically Signed Out By CECE FLORES MD/ELEUTERIO By the signature on this report, the individual or group listed as making the Final Interpretation/Diagnosis certifies that they have reviewed this case. [facility] Department of Pathology [address] [place] [address] COPATHCONVERTED FINAL DIAGNOSISA. ??THINPREP PAP ECTOCERVICAL/ENDOCERVICAL: ? Specimen adequacy: ? SATISFACTORY FOR EVALUATION. ? Quality Indicator: Endocervical/transformation zone component is present. ? Quality Indicator: Partially obscuring inflammation. ? General Categorization: ? NEGATIVE FOR INTRAEPITHELIAL LESION OR MALIGNANCY. ? Ancillary Testing: ? An addendum report follows containing the HPV test results performed by the Molecular Diagnostics Laboratory at [facility]. ? [facility] COPATHCONVERTED DIAGNOSIS COMMENTThis specimen has been analyzed by the DBVuPrep Imaging System (Recommind.), an automated imaging and review system, which assists the laboratory in evaluating cells on ThinPrep Pap tests. Following automated imaging, selected lugo from every slide were reviewed by a duplication specialist and/or pathologist. [facility] COPATHCONVERTED ADDENDUM DIAGNOSISSPECIMEN IS NEGATIVE FOR [...] PERFORMED BY THE MOLECULAR DIAGNOSTIC LABORATORY AT [facility], UNDER THE SUPERVISION OF DR. CECE FLORES MD. ??THE LAB IS CERTIFIED UNDER THE CLINICAL LABORATORY AMENDMENTS OF 1988 (CLIA-88) QUALIFIED TO PERFORM HIGH COMPLEXITY CLINICAL LABORATORY TESTING. Reference Range: Negative [facility] COPATHCONVERTED FINAL REPORT PDF LINK TO COPY AND PASTE \copathshare\copath\PDF \[id number].pdfWE[facility] COPATHSpecimen (Source) Anatomical Location / LateralityCollection Method / VolumeCollection Time Received TimeTPP ECTO/ENDO 8:55 PM EDT Narrative Authorizing ProviderResult TypeResult StatusHoney Shin MDLAB CYTOLOGY ORDERABLESFinal ResultPerforming OrganizationAddressCity/State/ZIP CodePhone Number [facility] COPATH [address] [place] [address] from Last 3 Months or Most Recently Relevant to Health Maintenance Insurance Care Teams Team MemberRelationshipSpecialtyStart DateEnd Date Alexis Sal MD [address] [place] [address] [facility]02/02/09
--- OUTSIDE RECORDS SUMMARY | 2025-05-27 09:26 | XMS_ITS | Encounter Summary ---
Author Organization [facility] Address [address] [place] [address] Care Team Providers Care Cigar Bander Hand Name Role Phone Alexis Sal MD Primary Care Provider [phone] Encounter Details DateTypeDepartmentCare Team (Latest Contact Info)Awoeiqmatyu69/11/2025Travel Social History Tobacco UseTypesPacks/DayYears UsedDateSmoking Tobacco: NeverSmokeless Tobacco: NeverAlcohol UseStandard Drinks/WeekCommentsYes0 (1 standard drink = 0.6 oz pure alcohol)1-2 drinks monthly or less, coffee 2-3 cups per dayComments UnknownSex and Gender InformationValueDate RecordedSex Assigned at BirthFemale 07/13/2023 8:41 AM ESTLegal HkzAgqayo53/15/2023 6:45 PM EDTGender IdentityFemale 07/13/2023 8:41 AM ESTSexual OrientationNot on filedocumented as of this encounter Plan of Treatment DateTypeDepartmentCare Team (Latest Contact Info)Gifemcsmoyn40/15/2026 3:40 PM ESTOffice Visit [facility] [address] [facility] [address] [place] [phone] Omar Anand, DPM [address] [facility] [address] [place] [address] 06/30/2025 9:00 AM ESTOffice Visit [facility] [address] [place] [phone] Clint Anand DO [address] [place] [address] documented as of this encounter Visit Diagnoses Not on filedocumented in this encounter Care Teams Team MemberRelationshipSpecialtyStart DateEnd Date Alexis Sal MD [address] [facility] [place] [address] PCP - General07/13/23documented as of this encounter
--- OUTSIDE RECORDS SUMMARY | 2025-05-27 09:26 | XMS_ITS | Clinical Summary ---
Author Organization [facility] Address [address] [place] [address] Care Team Providers Care Asl Interpreter Name Role Phone Alexis Sal MD Primary Care Provider Allergies No known active allergies Medications MedicationSigDispense [...] 32 mg Indications:Primary osteoarthritis of right knee32 tdEEfnAbjk98/28/2023ctive Active Problems ProblemNoted DateDiagnosed DatePrimary osteoarthritis of [...] partner or ex-partner?No3PHQ-2 AnswerDate RecordedPatient Health Questionnaire-2 Fhlkx05608/06/2022UT Safety & EnvironmentAnswerDate RecordedWithin the last year, [...] InformationValueDate RecordedSex Assigned at BirthNot on fileLegal WraMxkmou93/18/2023 2:22 PM ESTGender IdentityNot on fileSexual OrientationNot on file Last Filed Vital Signs Vital SignReadingTime TakenCommentsBlood Pressure--Pulse--Temperature-- Respiratory Rate--Oxygen Saturation--Inhaled Oxygen Concentration--Ccwvkk86.3 kg (210 lb)06/05/2023 10:02 AM ZYEPwrlmo175.5 cm (5' 2 )06/05/2023 10:02 AM ESTBody Mass Index38.41108/06/2022 10:02 AM EST Plan of Treatment Health MaintenanceDue DateLast DoneCommentsCT Zrpeytdgmjig1971FIT-DNA 1971FIT1971FOBT1971 8692Cqlbgwsqpimmw1971Depression Screening 1983Hepatitis B Vaccines (1 of 3 - 19+ 3-dose series)1990Adult Wmqvehn3601/13/1993HPV/Njzluw7501/13/20019450Ahifhymtj37/07/2011Cervical Cancer Zwhqqgpmt39/10/2023Pap Smear/03/2020COVID-19 Vaccine ( season)/, 11/07/2020Influenza Vaccine (#1)2025 06/19/2022, 03/27/2021, 03/30/2020, Additional history existsColonoscopy /olorectal Cancer Frqqlkgxp84/08/2031Zoster Vaccines Uyeojmphs37/28/2022, 06/14/2021HIB VaccinesAged OutNo longer eligible based on [...] MemberRelationshipSpecialtyStart DateEnd Alexis Sal MD [address] [facility] [address] [address] [facility]09/24/22
--- OUTSIDE RECORDS SUMMARY | 2025-05-27 09:26 | XMS_ITS | Clinical Summary ---
Author Organization [facility] Address [address] [place] [address] Care Team Providers Care Honey Blender Name Role Phone Alexis Sal MD Primary Care Provider [phone] Allergies No known active allergies Medications MedicationSigDispense [...] mg) by mouth Daily 30 capsule 5Active amoxicillin (Amoxil) 500 MG capsule Indications:OnychocryptosisTake 4 tablets by mouth 1 hour prior to procedure 4 capsule 5Active cephalexin (Keflex) 500 MG capsule Indications:OnychocryptosisTake 1 capsule (500 mg) by mouth in the morning and 1 capsule (500 mg) in the evening and 1 capsule(500 mg) before bedtime. Do all this for 10 days. Take one tablet by mouth three times daily. 30 capsule 515Active Active Problems ProblemNoted DateDiagnosed DatePrimary osteoarthritis of right knee07/01/2024 Difficulty atikeyx29/23/2025Acute postoperative pain of right knee07/01/2024 Status post right knee myyptrmdwgd67/23/2025 Encounters DateTypeDepartmentCare EdzsVnxbcrmvuww97/11/2025 4:10 PM ESTOffice Visit [facility] [address] [facility] [address] [place] [address] Omar Anand DPM Hav (hallux abducto valgus), left (Primary Dx); Onychocryptosis; Toe pain, right05/19/2025bstract [facility] [address] [facility] [address] [place] [address] Omar Anand DPM 05/19/2025amboo flowsheet [facility] [address] [facility] [address] [place] [address] Omar Anand DPM 05/19/20259743Yanjdu75/02/2025 3:10 PM ESTOffice Visit [facility] [address] [place] [address] Omar Anand, DPM Onychocryptosis (Primary Dx); Toe pain, right; Hav (hallux abducto valgus), left05/10/2025[facility] flowsheet [facility] [address] [place] [address] Omar Anand, DPM 05/03/20250770Uykaqv67/12/2025 8:00 AM ESTTreatment [facility] [address] [place] [address] Nicholas Farrell, STABLE CLEANER Iliotibial band syndrome of right side (Primary Dx)04/20/2025[facility] flowsheet [facility] [address] [place] [address] Nicholas Farrell, STABLE CLEANER 04/20/20254123Mdpfrw47/10/2025 8:00 AM ESTTreatment [facility] [address] [place] [address] Nicholas Farrell, STABLE CLEANER Iliotibial band syndrome of right side (Primary Dx)04/18/2025 flowsheet [facility] [address] [place] [address] Nicholas Farrell, STABLE CLEANER 04/18/20257072Arhgpv56/05/2025 9:00 AM ESTTreatment [facility] [address] [place] [address] Nicholas Farrell, STABLE CLEANER Iliotibial band syndrome of right side (Primary Dx)04/13/2025[facility] flowsheet [facility] [address] [place] [address] Nicholas Farrell, STABLE CLEANER 04/13/20251967Hosvhm54/03/2025 8:30 AM ESTTreatment [facility] [address] [place] [address] Kelbley, Sunshine, STABLE CLEANER Iliotibial band syndrome of right side (Primary Dx)04/11/2025amboo flowsheet [facility] [address] [place] [address] Kelbley, Sunshine, STABLE CLEANER 04/11/20257225Buatls62/02/2196Gbhiau98/31/2025 2:30 PM EDTTreatment [facility] [address] [place] [address] Bud Nicholas, STABLE CLEANER Iliotibial band syndrome of right side (Primary Dx)04/08/2025amboo flowsheet [facility] [address] [place] [address] Nicholas Farrell, STABLE CLEANER 04/08/20255630Vphlns98/27/2025 10:00 AM EDTTreatment [facility] [address] [place] [address] Kelbley, Sunshine, STABLE CLEANER Iliotibial band syndrome of right side (Primary Dx)04/04/2025amboo flowsheet [facility] [address] [place] [address] [place] [address] Kelbley, Sunshine, STABLE CLEANER 04/04/20250772Owvnul17/26/4245Hpoafb87/22/2025 12:30 PM EDTTreatment [facility] [address] [place] [address] Kelbley, Sunshine, STABLE CLEANER Iliotibial band syndrome of right side (Primary Dx)03/30/2025amboo flowsheet [facility] [address] [place] [address] Kelbley, Sunshine, STABLE CLEANER 03/30/20255402Ftezqh86/17/2643Exseij61/15/2025 11:30 AM EDTEvaluation [facility] [address] [place] [address] Jada Cunha, PT Iliotibial band syndrome of right side (Primary Dx)03/23/2025Plan of Care Documentation [facility] [address] [place] [id number] 03/23/2025amboo flowsheet [facility] [address] [place] [id number] Jada Cunha, PT 03/23/20256671Ksuspk22/14/9422Dsjzbg69/30/2025Telephone [facility] [address] [place] [address] Chelsi Bernard RN from Last [...] Assigned at BirthFemale 07/13/2023 8:41 AM ESTLegal NndFuzqua05/15/2023 6:45 PM EDTGender IdentityFemale 07/13/2023 8:41 AM ESTSexual OrientationNot on file Last Filed Vital Signs Vital SignReadingTime TakenCommentsBlood Vwvcwiep660/8206 10:03 AM EDT Phjwe0854 10:03 AM EDTTemperature--Respiratory Ytse284507/20/2024 3:46 PM ESTOxygen Saturation--Inhaled Oxygen Concentration--Jxkwjq48.7 kg (158 lb) 05/19/2025 3:46 PM WVDHltwog318.9 cm (5' 1 )05/19/2025 3:46 PM ESTBody Mass Index29.8505/19/2025 3:46 PM EST Plan of Treatment DateTypeDepartmentCare Team (Latest Contact Info)Pvcjuktmrpg23/15/2026 3:40 PM ESTOffice Visit [facility] [address] [facility] [address] [place] [address] Omar Anand, DPM [address] [facility] 5 [place] [address] 06/30/2025 9:00 AM ESTOffice Visit [facility] [address] [facility] [place] [address] Clint Anand, DO [address] [place] [address] Health MaintenanceDue DateLast DoneCommentsCT Jujpmgsbquds1971FIT-DNA 1971FIT1971FOBT1971 5027Xxygzfqqtartf1971HPV/Naouew4401/13/2001 Cervical Cancer Tfgxdcvkc31/10/2023Pap Smear, 07/19/2019 COVID-19 Vaccine ( season)/, 11/07/2020Influenza Vaccine (#1)509/10/2023, 06/19/2022, 03/27/2021, Additional history yctjrkNijbhmtek30/17/202609/4348Ctxqmbpafqh10/08/203112/olorectal Cancer Dvzkpgehy53/08/2031Pneumococcal Vaccine: Pediatrics (0 to 5 Years) and At-Risk Patients (6 to 64 Years)Aged OutNo longer eligible based on patient's age to complete this topic Insurance Care Teams Team MemberRelationshipSpecialtyStart DateEnd Date Alexis Sal MD [address] [place] [address] PCP - General07/13/23
--- OUTSIDE RECORDS SUMMARY | 2025-05-27 09:26 | XMS_ITS | Clinical Summary ---
Author Organization [facility] Address [facility] [place] [address] Care Team Providers Care Bed Teacher Name Role Phone Alexis Sal MD Primary Care Provider [phone] Allergies No known active allergies Medications MedicationSigDispense QuantityRefillsLast FilledStart DateEnd DateStatus cetirizine (ZyrTEC) 10 mg tablet Take 1 tablet (10 mg total) by mouth in the morning.Active pmhgjawh-gsom-BV-calcium &mins (THERAGRAN-M) 9 mg iron-400 mcg tablet [...] 1 TABLET IN THE EVENING 90 tablet 5Active Active Problems ProblemNoted DateDiagnosed DatePrimary glksfsdjezmq19/28/2022Dyslipidemia 06/05/2022Family history of heart tbdnabt7808/02/2021Essential hypertension 08/02/20211321Vsxnstrpw79/07/2022leep apnea02/09/2021Hot flashes due to menopause 12/21/2020 Resolved Problems ProblemNoted DateDiagnosed DateResolved DateObesity (BMI 30-39.9)08/02/2021 09/27/2024Shortness of aetqsb68 Encounters DateTypeDepartmentCare MikuEeyboxpxitl83/29/2025Refill [facility] [address] [place] [address] Lorena Sigala, BACK END DEVELOPER-SENIOR CONTRACTS MANAGER Med Refillfrom Last 3 Months Family History Medical HistoryRelationNameCommentsMuscular [...] standard drink = 0.6 oz pure alcohol)rareChildcareAnswerDate OlfwbutbAmkaozilyMhcjcjj86/03/2019Employment AnswerDate GpnhwnyfSsggfxkfzlEbuhkrh00/03/2019Hunger ScreeningAnswerDate RecordedWithin the past 12 months we worried whether our food would run out before we got money to buy more.Never True09/27/2024Within the past 12 months the food we bought just didn't last and we didn't have money to get more.Never True09/27/2024Purpose - LifeAnswerDate RecordedPurpose and direction in life Fmmdois80/11/2021CommentsNoSex and Gender InformationValueDate Recorded Sex Assigned at GchwtLzlegc40/06/2022 7:08 PM ESTLegal AwoJcbsxe40/03/2019 3:04 PM EDTGender BdcvpomvOtgtpl14/06/2022 7:08 PM ESTSexual OrientationStraight 07/15/2021 7:08 PM EST Last Filed Vital Signs Vital SignReadingTime TakenCommentsBlood Waddqdht112/8708 1:22 PM EDT Kevua81479 1:22 PM IPSFvurfnxdkbm24.4 ??C (97.5 ??F)02/24/2019 3:08 PM EDTRespiratory Hyeq463502/24/2019 3:40 PM EDTOxygen Pmpmcusfmf79%09/27/2024 7:49 AM EDTInhaled Oxygen Concentration--Iownqo77.3 kg (155 lb)02/02/2025 1:22 PM EDT Ttudfq583.5 cm (5' 2 )02/02/2025 1:22 PM EDTBody Mass Index28.3508 1:22 PM EDT Plan of Treatment Health MaintenanceDue DateLast DoneCommentsDepression Sbzbgnxlj38/07/1983Adult BMI Follow Up Plan1989Pap Smear, 12/27/2021, 07/19/2019COVID-19 Vaccine ( season)/, 11/07/2020 Influenza Vzdecwz259/10/2023, 06/19/2022, 06/18/2022, Additional history existsAdult BMI Uyklkjmtt83Tobacco Szgymxsum23/27/2026 02/02/2025DTaP,Tdap and Td Vaccines (2 - Td or Tdap)/Zoster (Shingles) AhqqvvoChcvwsqow19/28/2022, 06/14/2021 Medical Devices Not on file Procedures Procedure NamePriorityDate/TimeAssociated DiagnosisCommentsPAP SMEARRoutine 12/27/2021 7:43 AM EDT Well woman exam with routine gynecological exam from Last 3 Months or Most Recently Relevant to Health Maintenance Results * Pap Smear (12/27/2021 7:43 AM EDT)Specimen (Source)Anatomical Location / LateralityCollection Method / VolumeCollection TimeReceived Time12/27/2021 7:43 AM EDT12/27/2021 7:44 AM EDT Narrative COPATH - 01/02/2022 11:33 AM EDT [facility] ? [address] [facility] ? [place] [address] ? Gynecologic Cytology Consultation ? Patient Name:CODI CESAR:1970 (Age: 51)Gender:FTaken:2Reported:2Physician(s):YULISSA GRANT M.D. ([phone])Copy To: Rec. #:[id number]: #[id number] Final Cytologic Interpretation ThinPrep Pap Test (Cervical): Satisfactory for evaluation. A transformation zone component is present. NEGATIVE FOR INTRAEPITHELIAL LESION OR MALIGNANCY. ?? pmc/01/02/2022 Interpretation performed at [facility], [address] [place] [address], License number: [id number]. Electronically Signed Out By ?LAURA Kowalski(ASCP) Date of Last Menstrual Period: ? (None Given) Other Clinical Conditions: Z01.419 Bottom Crane Operator exam wo/abn findings Source of Specimen ??ThinPrep Pap Test (Cervical) ? Thin Prep Pap (RES COUNSELOR) Fee Code(s): ?? G0145 Authorizing ProviderResult TypeResult StatusYulissa Grant MD PATHOLOGY/CYTOLOGY ORDERABLESFinal ResultPerforming OrganizationAddress City/State/ZIP CodePhone Number COPATH from Last 3 Months or Most Recently Relevant to Health Maintenance Insurance Care Teams Team MemberRelationshipSpecialtyStart DateEnd Alexis Sal MD [facility] - [facility]
--- OUTSIDE RECORDS SUMMARY | 2025-05-27 09:26 | XMS_ITS | Encounter Summary ---
Author Organization [facility] Address [address] [place] [address] Care Team Providers Care Log Sorter Name Role Phone Alexis Sal MD Primary Care Provider [phone] Encounter Details DateTypeDepartmentCare Team (Latest Contact Info)Hvyybusmaqf02/11/2025amboo flowsheet [facility] [address] [facility] [address] [place] [address] Omar Anand, DPSaima [address] [facility] [address] [place] [address] Social History Tobacco UseTypesPacks/DayYears UsedDateSmoking Tobacco: NeverSmokeless Tobacco: NeverAlcohol UseStandard Drinks/WeekCommentsYes0 (1 standard drink = 0.6 oz pure alcohol)1-2 drinks monthly or less, coffee 2-3 cups per dayComments UnknownSex and Gender InformationValueDate RecordedSex Assigned at BirthFemale 07/13/2023 8:41 AM ESTLegal OpkJyzpkq50/15/2023 6:45 PM EDTGender IdentityFemale 07/13/2023 8:41 AM ESTSexual OrientationNot on filedocumented as of this encounter Plan of Treatment DateTypeDepartmentCare Team (Latest Contact Info)Zhkjzjoyewz14/15/2026 3:40 PM ESTOffice Visit [facility] [address] [facility] [address] [place] [address] Omar Anand DPM [address] [facility] 5 [place] [address] 06/30/2025 9:00 AM ESTOffice Visit [facility] [address] [place] [address] Clint Anand DO [address] [place] [address] documented as of this encounter Visit Diagnoses Not on filedocumented in this encounter Care Teams Team MemberRelationshipSpecialtyStart DateEnd Alexis Sal MD [address] [place] [facility] [place] [address] [phone] PCP - General07/13/23documented as of this encounter
== END 2025-05-27 09:23 | disposition home or self-care (01) ==
LOC: US 09:22
PROVIDERS: PCP Family Medicine; Visit Provider Family Medicine
DX: Q89.2 Congenital malformations of other endocrine glands (principal)
CPT/HCPCS: 76536